=== PATIENT | male | born 1950 | race Caucasian/White ===

== ENCOUNTER 2016-05-30 13:45 | Emergency (ER) | payer MEDICARE, MEDICAID ==
[~2016-05-30] VITALS: Ht 160 cm; Wt 72.6 kg
[~2016-05-30 13:45] MED LIST: AMLO5TAB2 PO; AMMO385C5 TP; ASPI-482 PO; CLON0.1T PO; CLON0.2T PO; FLUO20DR OT; LEVO25TA4 PO; LISI-334 PO; METF500T4 PO
--- NOTE | 2016-05-30 15:16 | PHYS DOC ---
Past Medical History Past Medical History: Diabetes-Type I, Hypertension, Hypothyroid Past Surgical History: Other Additional Past Surgical Histo: 2 toes on L foot surgically amputated Alcohol Use: None Drug Use: None Adult General Chief Complaint Chief Complaint: MECHANICAL FALL HPI HPI Patient is a 65 year old male who presents with care provider for assessment of head injury and bloody nose. He was walking while carrying a chair and tripped. He fell hitting the front of his face on the ground. He had a bloody nose which is currently packed anteriorly with gauze and controlled. He has mild anterior face pain around areas of abrasion That is mild and constant. He denies headache, vision changes, neck pain, numbness, tingling, weakness, dyspnea, chest pain, abdominal pain, nausea or vomiting, dizziness. She is taking aspirin daily, without any other blood thinners. Review of Systems Review of Systems Constitutional: Denies fever or chills [] Eyes: Denies change in visual acuity, redness, or eye pain [] HENT: Denies nasal congestion or sore throat [] Respiratory: Denies cough or shortness of breath [] Cardiovascular: No additional information not addressed in HPI [] GI: Denies abdominal pain, nausea, vomiting, bloody stools or diarrhea [] : Denies dysuria or hematuria [] Musculoskeletal: Denies back pain or joint pain [] Integument: Denies rash [] Neurologic: Denies headache, focal weakness or sensory changes [] Endocrine: Denies polyuria or polydipsia [] Allergies Allergies Allergies Coded Allergies Type Severity Reaction Last Updated Verified No Known Drug Allergies 05/30/16 No Physical Exam Physical Exam Constitutional: Well developed, well nourished, no acute distress, non-toxic appearance. [] HENT: Normocephalic, bilateral TMs normal, oropharynx moist, no oral exudates, nose without bleeding. Nonbleeding abrasions to bridge of nose and left face with no underlying palpable bony abnormality. No watkins sign, hemotympanum, or raccoon eyes. [] Eyes: PERRLA, EOMI, conjunctiva normal, no discharge. [] Neck: Normal range of motion, no tenderness, supple. [] Cardiovascular:Heart rate regular rhythm [] Lungs & Thorax: Bilateral breath sounds clear to auscultation [] Abdomen: Bowel sounds normal, soft, no tenderness. [] Skin: Warm, dry, no erythema, no rash. [] Back: No tenderness, no CVA tenderness. [] Extremities: No tenderness, ROM intact, no edema. [] Neurologic: Alert and oriented X 3, normal motor function, normal sensory function, no focal deficits noted. [] Psychologic: Affect normal, judgement normal, mood normal. [] Current Patient Data Vital Signs Vital Signs Date Time Temp Pulse Resp B/P Pulse Ox O2 Delivery O2 Flow Rate FiO2 05/30/16 14:11 97.7 92 20 98 Room Air 97.7 Radiology/Procedures Radiology/Procedures CT head without contrast Impression: 1. No acute intracranial process detected. DICTATED and SIGNED BY: HARRISON SAMUEL MD DATE: 05/30/16 1523 Course & Med Decision Making Course & Med Decision Making Epistaxis was controlled prehospital. He has no change of symptoms and is ambulatory with steady gait. He would like to be discharged to follow-up with his primary care doctor. Return precautions given. He and outreach liaison understand and agree with plan. Dragon Disclaimer Dragon Disclaimer This electronic medical record was generated, in whole or in part, using a voice recognition dictation system. Departure Departure Impression: Primary Impression: Closed head injury Additional Impressions: Abrasion, face without infection Anterior epistaxis Disposition: HOME, SELF-CARE Condition: STABLE Referrals: SASKIA HERNANDEZ MD (PCP) Patient Instructions: Head Injury, Adult, [id number] Additional Instructions: Follow-up with your primary care doctor within one week. Return for any concerns. Problem Qualifiers Primary Impression: Closed head injury Encounter type: initial encounter Qualified Code: S09.90XA - Unspecified injury of head, initial encounter Dianne BERRIOS MD May 30, 2016 15:16
--- NOTE | 2016-05-30 15:27 | RAD ---
Exam performed: CT scan of the head without contrast. Date of Service: 05/30/16. Comparison: None available. Clinical History: Patient fell today, complaining of headache. Technique: Helical acquisitions are obtained from the foramen magnum to the vertex without intravenous administration of contrast. Findings: The ventricles are midline without evidence of dilatation. Normal srinivasan-white differentiation is maintained. There is no extra axial fluid collection, intraparenchymal hemorrhage or mass lesion. The visualized portions of the orbits, paranasal sinuses and the mastoid air cells appear clear. The calvarium is intact. Impression: 1. No acute intracranial process detected. PQRS Compliance Statement: One or more of the following individualized dose reduction techniques were utilized for this examination: 1. Automated exposure control 2. Adjustment of the mA and/or kV according to patient size 3. Use of iterative reconstruction technique
[2016-05-30 16:03] VITALS: BP 200/102
== END 2016-05-30 16:05 | disposition home or self-care (01) ==
LOC: ER 13:45
DX: S00.31XA Abrasion of nose, initial encounter (principal); S00.81XA Abrasion of other part of head, initial encounter; S09.90XA Unspecified injury of head, initial encounter; R04.0 Epistaxis; I10 Essential (primary) hypertension; E03.9 Hypothyroidism, unspecified; E10.9 Type 1 diabetes mellitus without complications; Z79.82 Long term (current) use of aspirin; Z89.422 Acquired absence of other left toe(s); W01.198A Fall on same level from slipping, tripping and stumbling with subsequent striking against other object, initial encounter; Y93.89 Activity, other specified; Y92.89 Other specified places as the place of occurrence of the external cause; Y99.8 Other external cause status
CPT/HCPCS: 70450; 99284-25

== ENCOUNTER 2017-11-15 10:56 | Inpatient (IN) | payer MEDICAID, MEDICARE ==
[~2017-11-15] VITALS: Ht 162.6 cm; Wt 76.9 kg
[~2017-11-15 10:56] MED LIST changes: -METF500T4 PO; +METF500T5 PO
[2017-11-15] MEDS ORDERED: IV NORMAL SALINE 500ML BAG 500 ML IV PRN (11:15)
[2017-11-15] MEDS ORDERED: IBUPROFEN 800 MG TABLET. PO ONE (11:30)
[2017-11-15] MEDS ORDERED: ACETAMINOPHEN 500 MG TABLET PO ONE (11:45)
[2017-11-15] MEDS: IV NORMAL SALINE 1000ML BAG 1,000 ML IV SCH ×2 (11:46→11:49)
[2017-11-15 11:48] LABS: BASO # 0.1 x10^3/uL (0.0-0.2); BASO % 0 % (0-3); EOS # 0.1 x10^3/uL (0.0-0.7); EOS % 0 % (0-3); HEMOGLOBIN 11.6 g/dL (13.0-17.5); LYMPH # 2.9 x10^3/uL (1.0-4.8); LYMPH % 15 % (24-48); MEAN CORPUSCULAR HEMOGLOBIN 32 pg (25-35); MEAN CORPUSCULAR HGB CONC 35 g/dL (31-37); MEAN CORPUSCULAR VOLUME 92 fL (79-100); MONO # 2.2 x10^3/uL (0.0-1.1); MONO % 12 % (0-9); NEUT # 13.8 x10^3uL (1.8-7.7); NEUT % 73 % (31-73); PLATELET COUNT 193 x10^3/uL (140-400); RED BLOOD COUNT 3.58 x10^6/uL (4.30-5.70)
[2017-11-15] MEDS: PIPERACILLIN/TAZOBACTAM 4.5 GM in IV NORMAL SALINE 100ML 100 ML IV SCH ×3 (11:49→23:32)
--- NOTE | 2017-11-15 11:55 | RAD ---
FOOT LEFT 3V History: DIABETIC WOUND ON LEFT FOOT X 2 WEEKS
SWELLING AND REDNESS OF LEFT FOOT. Comparison: None are available There has been amputation at the base of the first metatarsal with well-defined margins. There has been apparent dilatation at the base of the proximal third and fourth phalanges with well-defined margins. Chronic appearing ununited fracture at the distal second metatarsal. Mild degenerative changes along this pseudarthrosis. There is irregularity of the small second metatarsal head remnant and MTP joint. No evidence of an acute fracture. No overtly aggressive bone destruction is identified. Calcaneal enthesophytes are noted. IMPRESSION: 1. Multiple amputations. 2. Chronic appearing fracture with pseudarthrosis at the distal second metatarsal. Electronically signed by: Rommel Gaspar MD (11/15/2017 11:51 AM) [facility]
[2017-11-15 11:59] LABS: CALCIUM 7.6 mg/dL (8.5-10.1); CREATININE 1.2 mg/dL (0.7-1.3); GFR 60.6; POTASSIUM 3.6 mmol/L (3.5-5.1)
[2017-11-15] MEDS ORDERED: VANCOMYCIN 1.75 GM in IV NORMAL SALINE 500ML BAG 500 ML IV ONE (12:00)
[2017-11-15 12:06] LABS: ALBUMIN/GLOBULIN RATIO 0.9 (1.0-1.7); C-REACTIVE PROTEIN 236.4 mg/L (0-3.3); TOTAL BILIRUBIN 2.4 mg/dL (0.2-1.0); TOTAL PROTEIN 6.4 g/dL (6.4-8.2)
--- NOTE | 2017-11-15 12:18 | RAD ---
Examination: Left Lower Extremity Venous Doppler Ultrasound History: Left leg swelling Comparison: None Procedure: Gomez scale, color flow 2D and spectal waveform analysis images are obtained with and without compression in the area of the common femoral vein, superficial femoral vein - femoral vein junction, main femoral vein (superficial femoral vein) and popliteal vein. Veins of the proximal calf are also imaged. Findings: There is normal duplex flow, color flow and compressibility of all visualized vein segments. No evidence of deep venous thrombus is present. Enlarged left inguinal lymph node measuring 3.7 cm. Impression: No evidence of DVT in the visualized left lower extremity venous system. Electronically signed by: Jose Antonio Mcadams MD (11/15/2017 12:14 PM) [id number]
--- NOTE | 2017-11-15 12:58 | PHYS DOC ---
Past Medical History Past Medical History: Diabetes-Type I, Hypertension, Hypothyroid Past Surgical History: Other Additional Past Surgical Histo: 2 toes on L foot surgically amputated Alcohol Use: None Drug Use: None Adult General Chief Complaint Chief Complaint: LOWER EXTREMITY SWELLING HPI HPI Patient is a 67 year old male with history of diabetes, hypertension, hypothyroidism, who presents today with with an infected diabetic foot ulcer. Patient states 3 weeks ago he had callosus removed from his left foot, he states he followed up with the [facility] wound clinic 2 weeks ago. He states the area was healing well. He states for the last couple days he' s noted redness on the foot as well as streaks of redness to the the leg. Patient is in the ED with a caregiver who stated patient had subjective fevers today. Patient denies any nausea vomiting. PCP Dr. Wells Review of Systems Review of Systems Constitutional: Reports fever Eyes: Denies change in visual acuity, redness, or eye pain [] HENT: Denies nasal congestion or sore throat [] Respiratory: Denies cough or shortness of breath [] Cardiovascular: No additional information not addressed in HPI [] GI: Denies abdominal pain, nausea, vomiting, bloody stools or diarrhea [] : Denies dysuria or hematuria [] Musculoskeletal: Denies back pain or joint pain [] Integument: Reports infection to the left foot Neurologic: Denies headache, focal weakness or sensory changes [] All other systems were reviewed and found to be within normal limits, except as documented in this note. Current Medications Current Medications Current Medications Medications (Trade) Dose Ordered Sig/Susan Start Time Stop Time Status Last Admin Dose Admin Acetaminophen (Tylenol) 1,000 mg 1X ONCE 11/15/17 11:45 11/15/17 11:46 DC 11/15/17 11:45 1,000 MG Ibuprofen (Motrin) 800 mg 1X ONCE 11/15/17 11:30 11/15/17 11:31 DC 11/15/17 11:45 800 MG Piperacillin Sod/ Tazobactam Sod 4.5 gm/Sodium Chloride 100 ml @ 200 mls/hr Q6HRS 11/15/17 12:00 11/15/17 11:49 200 MLS/HR Sodium Chloride 500 ml @ 1,000 mls/hr PRN Q30MIN PRN 11/15/17 11:15 Vancomycin HCl (Vanco Per Pharmacy) 1 each PRN DAILY PRN 11/15/17 11:15 UNV Vancomycin HCl 1.75 gm/Sodium Chloride 500 ml @ 250 mls/hr 1X ONCE 11/15/17 12:00 11/15/17 13:59 11/15/17 12:08 250 MLS/HR Allergies Allergies Allergies Coded Allergies Type Severity Reaction Last Updated Verified No Known Drug Allergies 11/15/17 No Physical Exam Physical Exam Constitutional: Well developed, well nourished, no acute distress, non-toxic appearance. [] HENT: Normocephalic, atraumatic, bilateral external ears normal, oropharynx moist, no oral exudates, nose normal. [] Eyes: PERRLA, EOMI, conjunctiva normal, no discharge. [] Neck: Normal range of motion, no tenderness, supple, no stridor. [] Cardiovascular:Heart rate regular rhythm, no murmur [] Lungs & Thorax: Bilateral breath sounds clear to auscultation [] Abdomen: Bowel sounds normal, soft, no tenderness, no masses, no pulsatile masses. [] Skin: Warm, dry, no erythema, no rash. [] Back: No tenderness, no CVA tenderness. [] Extremities: Old amputation of the left great toe, left third toe is amputated, this redness over the amputation site is a 1 x 1 cm erythema on the distal 2nd metatarsal, there is redness/erythema over the foot area this streaking from the foot to the mid wagonre. There is warmth over the foot and wagoner. +1 left pedal pulse. Cap refill less than 2 seconds the left toes. No drainage over the foot. Patient has sensation to the foot. Neurologic: Alert and oriented X 3, normal motor function, normal sensory function, no focal deficits noted. [] Psychologic: Affect normal, judgement normal, mood normal. [] Current Patient Data Vital Signs Vital Signs Date Time Temp Pulse Resp B/P (MAP) Pulse Ox O2 Delivery O2 Flow Rate FiO2 11/15/17 10:57 101.3 106 20 146/67 (93) 95 Room Air 101.3 Lab Values Laboratory Tests Test 11/15/17 11:25 White Blood Count 19.0 x10^3/uL (4.0-11.0) H Red Blood Count 3.58 x10^6/uL (4.30-5.70) L Hemoglobin 11.6 g/dL (13.0-17.5) L Hematocrit 33.0 % (39.0-53.0) L Mean Corpuscular Volume 92 fL (79-100) Mean Corpuscular Hemoglobin 32 pg (25-35) Mean Corpuscular Hemoglobin Concent 35 g/dL (31-37) Red Cell Distribution Width 13.0 % (11.5-14.5) Platelet Count 193 x10^3/uL (140-400) Neutrophils (%) (Auto) 73 % (31-73) Lymphocytes (%) (Auto) 15 % (24-48) L Monocytes (%) (Auto) 12 % (0-9) H Eosinophils (%) (Auto) 0 % (0-3) Basophils (%) (Auto) 0 % (0-3) Neutrophils # (Auto) 13.8 x10^3uL (1.8-7.7) H Lymphocytes # (Auto) 2.9 x10^3/uL (1.0-4.8) Monocytes # (Auto) 2.2 x10^3/uL (0.0-1.1) H Eosinophils # (Auto) 0.1 x10^3/uL (0.0-0.7) Basophils # (Auto) 0.1 x10^3/uL (0.0-0.2) Platelet Estimate Pending Sodium Level 138 mmol/L (136-145) Potassium Level 3.6 mmol/L (3.5-5.1) Chloride Level 104 mmol/L (98-107) Carbon Dioxide Level 26 mmol/L (21-32) Anion Gap 8 (6-14) Blood Urea Nitrogen 26 mg/dL (8-26) Creatinine 1.2 mg/dL (0.7-1.3) Estimated GFR (Cockcroft-Gault) 60.6 BUN/Creatinine Ratio 22 (6-20) H Glucose Level 164 mg/dL (70-99) H Lactic Acid Level 2.5 mmol/L (0.4-2.0) H Calcium Level 7.6 mg/dL (8.5-10.1) L Total Bilirubin 2.4 mg/dL (0.2-1.0) H Aspartate Amino Transferase (AST) 18 U/L (15-37) Alanine Aminotransferase (ALT) 18 U/L (16-63) Alkaline Phosphatase 125 U/L (46-116) H C-Reactive Protein, Quantitative 236.4 mg/L (0-3.3) H Total Protein 6.4 g/dL (6.4-8.2) Albumin 3.0 g/dL (3.4-5.0) L Albumin/Globulin Ratio 0.9 (1.0-1.7) L Laboratory Tests 11/15/17 11:25 Laboratory Tests 11/15/17 11:25 EKG EKG [] Radiology/Procedures Radiology/Procedures []PROCEDURE: FOOT LEFT 3V FOOT LEFT 3V History: DIABETIC WOUND ON LEFT FOOT X 2 WEEKS
SWELLING AND REDNESS OF LEFT FOOT. Comparison: None are available There has been amputation at the base of the first metatarsal with well-defined margins. There has been apparent dilatation at the base of the proximal third and fourth phalanges with well-defined margins. Chronic appearing ununited fracture at the distal second metatarsal. Mild degenerative changes along this pseudarthrosis. There is irregularity of the small second metatarsal head remnant and MTP joint. No evidence of an acute fracture. No overtly aggressive bone destruction is identified. Calcaneal enthesophytes are noted. IMPRESSION: 1. Multiple amputations. 2. Chronic appearing fracture with pseudarthrosis at the distal second metatarsal. Electronically signed by: Rommel Gaspar MD (11/15/2017 11:51 AM) [facility] DICTATED and SIGNED BY: ROMMEL GASPAR MD DATE: 11/15/17 1148 PROCEDURE: VENOUS LOWER EXTREMITY LEFT Examination: Left Lower Extremity Venous Doppler Ultrasound History: Left leg swelling Comparison: None Procedure: Gomez scale, color flow 2D and spectal waveform analysis images are obtained with and without compression in the area of the common femoral vein, superficial femoral vein - femoral vein junction, main femoral vein (superficial femoral vein) and popliteal vein. Veins of the proximal calf are also imaged. Findings: There is normal duplex flow, color flow and compressibility of all visualized vein segments. No evidence of deep venous thrombus is present. Enlarged left inguinal lymph node measuring 3.7 cm. Impression: No evidence of DVT in the visualized left lower extremity venous system. Electronically signed by: Jose Antonio Jiménez MD (11/15/2017 12:14 PM) [id number] DICTATED and SIGNED BY: JOSE ANTONIO JIMÉNEZ MD DATE: 11/15/17 1214 Course & Med Decision Making Course & Med Decision Making Pertinent Labs and Imaging studies reviewed. (See chart for details) This is a 67-year-old male patient presenting to the ED today with an infected diabetic foot ulcer, on arrival to the ED patient was febrile with a temperature of 101.3, heart rate 106 blood pressure 146/67 O2 sats 95% on room air respiration 20 room air, sepsis workup was initiated. Left foot x-rays interpreted by radiologist were negative for any acute findings. Venous Doppler of the left lower extremity is negative. Tetanus is up to date. CBC with a WBC of 19.0 and left shift, CMP would not acute findings, C-reactive 236, lactic 2.5. Repeat lactic will be obtained. 12:[address] Abernathy who accepted patient for admission, routine consult placed for orthopedic doctor, infectious disease, and wound clinic, [place] Disclaimer Dragon Disclaimer This electronic medical record was generated, in whole or in part, using a voice recognition dictation system. Departure Departure Impression: Primary Impression: Diabetic foot ulcer Additional Impressions: Septic shock Fever Tachycardia Disposition: 09 ADMITTED INPATIENT Condition: STABLE Referrals: SASKIA HERNANDEZ MD (PCP) Problem Qualifiers Primary Impression: Diabetic foot ulcer Diabetic foot ulcer location: unspecified part of foot Diabetes mellitus type : type 1 Laterality: left Non-pressure ulcer stage: with other severity Qualified Codes: E10.621 - Type 1 diabetes mellitus with foot ulcer; L97.528 - Non-pressure chronic ulcer of other part of left foot with other specified severity Additional Impressions: Fever Fever type: unspecified Qualified Codes: R50.9 - Fever, unspecified MUTUNGA,[employer]ST[employer] D[employer] CALLER Nov 15, 2017 12:58
[2017-11-15] MEDS ORDERED: MORPHINE SULFATE 4 MG/ML VIAL. IV PRN (13:00)
[2017-11-15] MEDS ORDERED: ONDANSETRON PF 4 MG/2 ML VIAL. IV PRN (13:00)
[2017-11-15] MEDS ORDERED: IV NORMAL SALINE 1000ML BAG 1,000 ML IV ONE (13:00)
[2017-11-15 13:22] LABS: % BANDS 4 % (0-9); % LYMPHS 6 % (24-48); % MONOS 11 % (0-10); % SEGS 79 % (35-66)
[2017-11-15 13:23] LABS: PLT ESTIMATE ADEQUATE (ADEQUATE)
[2017-11-15 13:40] VITALS: BP 128/60
[2017-11-15] MEDS: VANCOMYCIN PER PHARMACY MC PRN (15:02)
[2017-11-15] MEDS ORDERED: DEXTROSE 50% 25 GM / 50ML DISP.SYRIN. IV PRN (17:45)
[2017-11-15] MEDS: INSULIN LISPRO 300 UNITS/3 ML INSULN.PEN. SQ SCH (18:00)
--- NOTE | 2017-11-15 18:32 | HP ---
ADMIT DATE: 11/15/2017 CHIEF COMPLAINT: Left foot swelling. HISTORY OF PRESENT ILLNESS: The patient is a pleasant 67-year-old cognitively challenged male who lives in a [facility]. He presents with left foot swelling. He is diabetic. It appears he has a diabetic foot lesion on the plantar surface of his foot near the ball of the first toe. I have discussed the case with ER physician. We are going to admit the patient and consult Orthopedics to consider incision and drainage. We are going to be treating him with IV antibiotics. PAST MEDICAL HISTORY: Cognitively challenged, hypertension, hypothyroidism, diabetes, 2 toes amputated on the left. ALLERGIES: None. FAMILY HISTORY: Diabetes. SOCIAL HISTORY: He lives in a [facility]. He does not drink, smoke or take drugs. MEDICATIONS: Reviewed, please refer to the MRAD. REVIEW OF SYSTEMS: Unable to obtain. The patient is too cognitively challenged, but he is stable. PHYSICAL EXAMINATION: VITAL SIGNS: Temperature afebrile, pulse 90, respirations 18, blood pressure 120/60. GENERAL: He is alert, very pleasant, cooperative. HEART: Normal S1, S2. LUNGS: Clear. ABDOMEN: Soft. EXTREMITIES: The left foot has swelling and erythema and a lesion on the plantar surface near the ball of the foot, suspect he has an abscess there. ENDOCRINE: No thyromegaly. LYMPHATICS: No cervical nodes. HEMATOPOIETIC: No bruising. LABORATORY DATA: White count 19, hemoglobin 12, platelets 193. Electrolytes are pending. Lactic acid is high at 2.5. C-reactive protein is high at 236. Foot x-ray, a chronic appearing fracture with pseudoarthrosis at the distal second metatarsal, multiple toe amputations. Lower extremity ultrasound is negative for DVT. ASSESSMENT AND PLAN: Diabetic foot lesion. The patient is being admitted. We will consult Orthopedics to consider incision and drainage. IV antibiotics, frequent labs, IV hydration, continue home medicines. Wound care. ERIKA REEVES DO DR: TOÑA/marcos JOB#: [id number] / [id number]
[2017-11-15 19:00] VITALS: BP 156/71
[2017-11-15] MEDS: LACTOBACILLUS RHAMNOSUS GG 1 CAPSULE. PO SCH (20:53)
[2017-11-15 23:00] VITALS: BP 164/82
[2017-11-15] MEDS: ACETAMINOPHEN 325 MG TABLET. PO PRN (23:32)
[2017-11-16 03:00] VITALS: BP 156/68
[2017-11-16 04:50] LABS: BASO % 0 % (0-3); EOS # 0.1 x10^3/uL (0.0-0.7); EOS % 0 % (0-3); HEMATOCRIT 34.9 % (39.0-53.0); HEMOGLOBIN 12.2 g/dL (13.0-17.5); LYMPH # 1.8 x10^3/uL (1.0-4.8); LYMPH % 11 % (24-48); MEAN CORPUSCULAR HEMOGLOBIN 33 pg (25-35); MEAN CORPUSCULAR HGB CONC 35 g/dL (31-37); MEAN CORPUSCULAR VOLUME 93 fL (79-100); MONO # 2.1 x10^3/uL (0.0-1.1); MONO % 13 % (0-9); NEUT % 76 % (31-73); PLATELET COUNT 211 x10^3/uL (140-400); RED BLOOD COUNT 3.75 x10^6/uL (4.30-5.70); RED CELL DISTRIBUTION WIDTH 13.3 % (11.5-14.5); WHITE BLOOD COUNT 17.1 x10^3/uL (4.0-11.0)
[2017-11-16 05:05] LABS: CALCIUM 7.7 mg/dL (8.5-10.1); CREATININE 1.1 mg/dL (0.7-1.3); POTASSIUM 3.6 mmol/L (3.5-5.1)
[2017-11-16] MEDS: PIPERACILLIN/TAZOBACTAM 4.5 GM in IV NORMAL SALINE 100ML 100 ML IV SCH ×3 (06:13→18:00)
[2017-11-16 07:00] VITALS: BP 130/56
[2017-11-16] MEDS: INSULIN LISPRO 300 UNITS/3 ML INSULN.PEN. SQ SCH ×3 (08:00→17:58)
--- NOTE | 2017-11-16 08:58 | PDOC ---
Infectious Disease Note Vital Sign Vital Signs Vital Signs Date Time Temp Pulse Resp B/P (MAP) Pulse Ox O2 Delivery O2 Flow Rate FiO2 11/16/17 07:00 100.7 104 16 130/56 (80) 93 Room Air 100.7 Labs Lab Laboratory Tests Test 11/15/17 11:25 11/15/17 14:13 11/15/17 15:15 11/15/17 17:12 White Blood Count 19.0 x10^3/uL (4.0-11.0) Red Blood Count 3.58 x10^6/uL (4.30-5.70) Hemoglobin 11.6 g/dL (13.0-17.5) Hematocrit 33.0 % (39.0-53.0) Mean Corpuscular Volume 92 fL (79-100) Mean Corpuscular Hemoglobin 32 pg (25-35) Mean Corpuscular Hemoglobin Concent 35 g/dL (31-37) Red Cell Distribution Width 13.0 % (11.5-14.5) Platelet Count 193 x10^3/uL (140-400) Neutrophils (%) (Auto) 73 % (31-73) Lymphocytes (%) (Auto) 15 % (24-48) Monocytes (%) (Auto) 12 % (0-9) Eosinophils (%) (Auto) 0 % (0-3) Basophils (%) (Auto) 0 % (0-3) Neutrophils # (Auto) 13.8 x10^3uL (1.8-7.7) Lymphocytes # (Auto) 2.9 x10^3/uL (1.0-4.8) Monocytes # (Auto) 2.2 x10^3/uL (0.0-1.1) Eosinophils # (Auto) 0.1 x10^3/uL (0.0-0.7) Basophils # (Auto) 0.1 x10^3/uL (0.0-0.2) Segmented Neutrophils % 79 % (35-66) Band Neutrophils % 4 % (0-9) Lymphocytes % 6 % (24-48) Monocytes % 11 % (0-10) Platelet Estimate Adequate (ADEQUATE) Erythrocyte Sedimentation Rate 63 (0-15) Sodium Level 138 mmol/L (136-145) Potassium Level 3.6 mmol/L (3.5-5.1) Chloride Level 104 mmol/L (98-107) Carbon Dioxide Level 26 mmol/L (21-32) Anion Gap 8 (6-14) Blood Urea Nitrogen 26 mg/dL (8-26) Creatinine 1.2 mg/dL (0.7-1.3) Estimated GFR (Cockcroft-Gault) 60.6 BUN/Creatinine Ratio 22 (6-20) Glucose Level 164 mg/dL (70-99) Lactic Acid Level 2.5 mmol/L (0.4-2.0) 1.7 mmol/L (0.4-2.0) Calcium Level 7.6 mg/dL (8.5-10.1) Total Bilirubin 2.4 mg/dL (0.2-1.0) Aspartate Amino Transf (AST/SGOT) 18 U/L (15-37) Alanine Aminotransferase (ALT/SGPT) 18 U/L (16-63) Alkaline Phosphatase 125 U/L (46-116) C-Reactive Protein, Quantitative 236.4 mg/L (0-3.3) Total Protein 6.4 g/dL (6.4-8.2) Albumin 3.0 g/dL (3.4-5.0) Albumin/Globulin Ratio 0.9 (1.0-1.7) Procalcitonin 0.13 ng/mL (0.00-0.10) Glucose (Fingerstick) 128 mg/dL (70-99) 169 mg/dL (70-99) Test 11/15/17 19:25 11/15/17 20:13 11/16/17 04:15 11/16/17 07:54 Lactic Acid Level 1.6 mmol/L (0.4-2.0) Glucose (Fingerstick) 161 mg/dL (70-99) 155 mg/dL (70-99) White Blood Count 17.1 x10^3/uL (4.0-11.0) Red Blood Count 3.75 x10^6/uL (4.30-5.70) Hemoglobin 12.2 g/dL (13.0-17.5) Hematocrit 34.9 % (39.0-53.0) Mean Corpuscular Volume 93 fL (79-100) Mean Corpuscular Hemoglobin 33 pg (25-35) Mean Corpuscular Hemoglobin Concent 35 g/dL (31-37) Red Cell Distribution Width 13.3 % (11.5-14.5) Platelet Count 211 x10^3/uL (140-400) Neutrophils (%) (Auto) 76 % (31-73) Lymphocytes (%) (Auto) 11 % (24-48) Monocytes (%) (Auto) 13 % (0-9) Eosinophils (%) (Auto) 0 % (0-3) Basophils (%) (Auto) 0 % (0-3) Neutrophils # (Auto) 13.0 x10^3uL (1.8-7.7) Lymphocytes # (Auto) 1.8 x10^3/uL (1.0-4.8) Monocytes # (Auto) 2.1 x10^3/uL (0.0-1.1) Eosinophils # (Auto) 0.1 x10^3/uL (0.0-0.7) Basophils # (Auto) 0.0 x10^3/uL (0.0-0.2) Sodium Level 141 mmol/L (136-145) Potassium Level 3.6 mmol/L (3.5-5.1) Chloride Level 106 mmol/L (98-107) Carbon Dioxide Level 27 mmol/L (21-32) Anion Gap 8 (6-14) Blood Urea Nitrogen 17 mg/dL (8-26) Creatinine 1.1 mg/dL (0.7-1.3) Estimated GFR (Cockcroft-Gault) 67.0 Glucose Level 180 mg/dL (70-99) Calcium Level 7.7 mg/dL (8.5-10.1) Micro Microbiology 11/15/17 Blood Culture - Final, Complete Objective Assessment Extensive diabetic foot infection , left with abscess and possible osteomyelitis Fever Leukocytosis DM HTN BC + g + cocci Plan Plan of Care vanc and zosyn repeat supportive care surgery, d/w Dr Mcnair check cultures JUSTINA ROSSI MD Nov 16, 2017 08:58
[2017-11-16] MEDS: LACTOBACILLUS RHAMNOSUS GG 1 CAPSULE. PO SCH ×2 (09:00→20:45)
[2017-11-16] MEDS ORDERED: ONDANSETRON PF 4 MG/2 ML VIAL. IV PRN (09:00)
[2017-11-16] MEDS ORDERED: LISINOPRIL 20 MG TABLET PO SCH (09:00)
[2017-11-16] MEDS ORDERED: amLODIPine BESYLATE 5 MG TABLET PO SCH (09:00)
[2017-11-16] MEDS ORDERED: LABETALOL 20 MG/4 ML DISP.SYRIN. IVP PRN (09:00)
[2017-11-16] MEDS ORDERED: DEXTROSE 50% 25 GM / 50ML DISP.SYRIN. IV PRN (09:00)
[2017-11-16] MEDS ORDERED: cloNIDine HCL 0.2 MG TABLET PO SCH (09:00)
[2017-11-16] MEDS ORDERED: BUPIVACAINE MPF 0.25% 30 ML VIAL. ONE (09:18)
[2017-11-16] MEDS ORDERED: LIDOCAINE 1% PF 30 ML VIAL. ONE (09:18)
[2017-11-16] MEDS: ACETAMINOPHEN 325 MG TABLET. PO PRN (09:20)
--- NOTE | 2017-11-16 09:53 | PDOC2 ---
CONSULT Date of Consult Date of Consult DATE: 11/16/17 TIME: 09:48 Reason for Consult Reason for Consult: Foot abscess Referring Physician Referring Physician: Michela Identification/Chief Complaint Chief Complaint Left foot pain Source Source: Chart review, Patient History of Present Illness Reason for Visit: Patient is a very pleasant 67 [address] laterally. Gentleman who has been managed by podiatry for his foot wounds thus far. He is not able to offer much in terms of the timeframe but it can tell me that in the past several days it has been more painful red and swollen. He was admitted for treatment of this problem. His foot is worse anytime he tries to put weight on it. It is a little bit better up and at rest. He has not been feeling better yet since being on the antibiotics. Past Medical History Cardiovascular: HTN Endocrine: No pertinent hx, Diabetes, Hypothyroidism Past Surgical History Past Surgical History: Other (he has had multiple prior amputations of his lower extremities for wounds) Social History No ALCOHOL: none Lives: Care Home Current Problem List Problem List Problems Medical Problems: (1) Fever Status: Acute (2) Tachycardia Status: Acute Current Medications Current Medications Current Medications Sodium Chloride 1,000 ml @ 1,770 mls/hr Q34M IV Last administered on at 11:49; Start 11/15/17 at 11:15; Stop 11/15/17 at 12:15; Status DC Sodium Chloride 500 ml @ 1,000 mls/hr PRN Q30MIN PRN IV SEE COMMENTS Last administered on 11/15/17at 13:20; Start 11/15/17 at 11:15 Vancomycin HCl (Vanco Per Pharmacy) 1 each PRN DAILY PRN MC SEE COMMENTS Last administered on 11/15/17at 15:02; Start 11/15/17 at 11:15 Piperacillin Sod/ Tazobactam Sod 4.5 gm/Sodium Chloride 100 ml @ 200 mls/hr Q6HRS IV Last administered on 11/16/17at 06:13; Start 11/15/17 at 12:00 Acetaminophen (Tylenol) 1,000 mg 1X ONCE PO Last administered on 11/15/17at 11: 45; Start 11/15/17 at 11:45; Stop 11/15/17 at 11:46; Status DC Ibuprofen (Motrin) 800 mg 1X ONCE PO Last administered on 11/15/17at 11:45; Start 11/15/17 at 11:30; Stop 11/15/17 at 11:31; Status DC Vancomycin HCl 1.75 gm/Sodium Chloride 500 ml @ 250 mls/hr 1X ONCE IV Last administered on 11/15/17at 12:08; Start 11/15/17 at 12:00; Stop 11/15/17 at 13:59 ; Status DC Ondansetron HCl (Zofran) 4 mg PRN Q8HRS PRN IV NAUSEA/VOMITING; Start 11/15/17 at 13:00; Stop 11/16/17 at 08:53; Status DC Morphine Sulfate (Morphine Sulfate) 4 mg PRN Q2HR PRN IV PAIN; Start 11/15/17 at 13:00; Stop 11/16/17 at 12:59 Acetaminophen (Tylenol) 650 mg PRN Q4HRS PRN PO FEVER Last administered on 11/16at 09:20; Start 11/15/17 at 13:00; Stop 11/16/17 at 12:59 Sodium Chloride 1,000 ml @ 125 mls/hr 1X ONCE IV Last administered on at 13:00; Start 11/15/17 at 13:00; Stop 11/15/17 at 20:59; Status DC Vancomycin HCl 1.25 gm/Sodium Chloride 250 ml @ 167 mls/hr Q24H IV ; Start at 12:00 Vancomycin HCl (Vancomycin Trough Level) 1 each 1X ONCE MC ; Start 11/17/17 at 11:30; Stop 11/17/17 at 11:31 Lactobacillus Rhamnosus (Culturelle) 1 cap BID PO Last administered on at 20:53; Start 11/15/17 at 21:00 Insulin Human Lispro (HumaLOG) 0-7 UNITS TIDWMEALS SQ ; Start 11/15/17 at 18:00 ; Stop 11/16/17 at 08:53; Status DC Dextrose (Dextrose 50%-Water Syringe) 12.5 gm PRN Q15MIN PRN IV SEE COMMENTS; Start 11/15/17 at 17:45; Stop 11/16/17 at 09:35; Status DC Ondansetron HCl (Zofran) 4 mg PRN Q6HRS PRN IV NAUSEA/VOMITING; Start 11/16/17 at 09:00 Insulin Human Lispro (HumaLOG) 0-9 UNITS TIDWMEALS SQ ; Start 11/16/17 at 12:00 Dextrose (Dextrose 50%-Water Syringe) 12.5 gm PRN Q15MIN PRN IV SEE COMMENTS; Start 11/16/17 at 09:00 Amlodipine Besylate (Norvasc) 5 mg BID PO ; Start 11/16/17 at 09:00 Clonidine HCl (Catapres) 0.1 mg QHS PO ; Start 11/16/17 at 21:00 Clonidine HCl (Catapres) 0.2 mg DAILY PO ; Start 11/16/17 at 09:00 Lisinopril (Prinivil) 20 mg BID PO ; Start 11/16/17 at 09:00 Lactic Acid (Lac-Hydrin) 1 frances BID TP ; Start 11/16/17 at 10:00 Non-Formulary Medication (Fluocinolone Acetonide Oil ) 20 ml 3X/WEEK OT ; Start 11/17/17 at 09:00; Status UNV Levothyroxine Sodium (Synthroid) 25 mcg DAILY07 PO ; Start 11/16/17 at 10:30 Metformin HCl (Glucophage) 500 mg BIDWMEALS PO ; Start 11/16/17 at 10:00 Labetalol HCl (Normodyne Iv Push) 10 mg PRN Q2HR PRN IVP HYPERTENSION, SEE COMMENTS; Start 11/16/17 at 09:00 Active Scripts Active Reported Fluocinolone Acetonide Oil 20 Ml Drops 20 Ml OT 3X/WEEK Ammonium Lactate 385 Gm Cream..g. 385 Gm TP BID Metformin Hcl 500 Mg Tablet 1 Tab PO BID Lisinopril 20 Mg Tablet 1 Tab PO BID Levothyroxine Sodium 25 Mcg Tablet 1 Tab PO DAILY Clonidine Hcl 0.2 Mg Tablet 0.2 Mg PO DAILY Clonidine Hcl 0.1 Mg Tablet 1 Tab PO QHS Aspir 81 (Aspirin) 81 Mg Tablet.dr 1 Tab PO DAILY Amlodipine Besylate 5 Mg Tablet 5 Mg PO BID Allergies Allergies: Coded Allergies: No Known Drug Allergies (Unverified , 11/15/17) ROS General: No: Chills, Night Sweats, Fatigue, Malaise, Appetite, Other PSYCHOLOGICAL ROS: No: Anxiety, Behavioral Disorder, Concentration difficultie , Decreased libido, Depression, Disorientation, Hallucinations, Hostility, Irritablity, Memory difficulties, Mood Swings, Obsessive thoughts, Physical abuse, Sexual abuse, Sleep disturbances, Suicidal ideation, Other Eyes: No Blurry vision, No Decreased vision, No Double vision, No Dry eyes, No Excessive tearing, No Eye Pain, No Itchy Eyes, No Loss of vision, No Photophobia , No Scotomata, No Uses contacts, No Uses glasses, No Other HEENT: No: Heacaches, Visual Changes, Hearing change, Nasal congestion, Nasal discharge, Oral lesions, Sinus pain, Sore Throat, Epistaxis, Sneezing, Snoring, Tinnitus, Vertigo, Vocal changes, Other ALLERGY AND IMMUNOLOGY: No: Hives, Insect Bite Sensitivity, Itchy/Watery Eyes, Nasal Congestion, Post Nasal Drip, Seasonal Allergies, Other Hematological and Lymphatic: No: Bleeding Problems, Blood Clots, Blood Transfusions, Brusing, Night Sweats, Pallor, Swollen Lymph Nodes, Other ENDOCRINE: No: Breast Changes, Galactorrhea, Hair Pattern Changes, Hot Flashes , Malaise/lethargy, Mood Swings, Palpitations, Polydipsia/polyuria, Skin Changes , Temperature Intolerance, Unexpected Weight Changes, Other Respiratory: No: Cough, Hemoptysis, Orthopnea, Pleuritic Pain, Shortness of breath, SOB with excertion, Sputum Changes, Stridor, Tachypnea, Wheezing, Other Cardiovascular: No Chest Pain, No Palpitations, No Orthopnea, No Paroxysmal Noc. Dyspnea, No Edema, No Lt Headedness, No Other Gastrointestinal: No Nausea, No Vomiting, No Abdominal Pain, No Diarrhea, No Constipation, No Melena, No Hematochezia, No Other Musculoskeletal: Yes Joint Swelling Neurological: No Behavorial Changes, No Bowel/Bladder ControlChng, No Confusion , No Dizziness, No Gait Disturbance, No Headaches, No Impaired Coord/balance, No Memory Loss, No Numbness/Tingling, No Seizures, No Speech Problems, No Tremors, No Visual Changes, No Weakness, No Other Skin: Yes Skin Lesion Changes Physical Exam General: Alert, No acute distress HEENT: Atraumatic, EOMI Lungs: Other (respirations are unlabored with symmetric chest rise) Heart: Other (dorsalis pedis week at left foot) Abdomen: Normal bowel sounds, No tenderness Extremities: No clubbing, No cyanosis Neuro: Normal speech, Strength at 5/5 X4 ext, Sensation intact Psych/Mental Status: Mental status NL, Mood NL, Other (he is slow to respond but does follow simple commands) MUSCULOSKELETAL: Other (examination of his left foot reveals multiple prior toe amputations. He has about a 1 cm diameter wound over the plantar second metatarsal head with foul-smelling purulent drainage. There is a fullness and fluctuance around this area as well.) Vitals VITALS Vital Signs Date Time Temp Pulse Resp B/P (MAP) Pulse Ox O2 Delivery O2 Flow Rate FiO2 11/16/17 07:00 100.7 104 16 130/56 (80) 93 Room Air 100.7 Labs Labs Laboratory Tests Test 11/15/17 11:25 11/15/17 14:13 11/15/17 15:15 11/15/17 17:12 White Blood Count 19.0 x10^3/uL (4.0-11.0) Red Blood Count 3.58 x10^6/uL (4.30-5.70) Hemoglobin 11.6 g/dL (13.0-17.5) Hematocrit 33.0 % (39.0-53.0) Mean Corpuscular Volume 92 fL (79-100) Mean Corpuscular Hemoglobin 32 pg (25-35) Mean Corpuscular Hemoglobin Concent 35 g/dL (31-37) Red Cell Distribution Width 13.0 % (11.5-14.5) Platelet Count 193 x10^3/uL (140-400) Neutrophils (%) (Auto) 73 % (31-73) Lymphocytes (%) (Auto) 15 % (24-48) Monocytes (%) (Auto) 12 % (0-9) Eosinophils (%) (Auto) 0 % (0-3) Basophils (%) (Auto) 0 % (0-3) Neutrophils # (Auto) 13.8 x10^3uL (1.8-7.7) Lymphocytes # (Auto) 2.9 x10^3/uL (1.0-4.8) Monocytes # (Auto) 2.2 x10^3/uL (0.0-1.1) Eosinophils # (Auto) 0.1 x10^3/uL (0.0-0.7) Basophils # (Auto) 0.1 x10^3/uL (0.0-0.2) Segmented Neutrophils % 79 % (35-66) Band Neutrophils % 4 % (0-9) Lymphocytes % 6 % (24-48) Monocytes % 11 % (0-10) Platelet Estimate Adequate (ADEQUATE) Erythrocyte Sedimentation Rate 63 (0-15) Sodium Level 138 mmol/L (136-145) Potassium Level 3.6 mmol/L (3.5-5.1) Chloride Level 104 mmol/L (98-107) Carbon Dioxide Level 26 mmol/L (21-32) Anion Gap 8 (6-14) Blood Urea Nitrogen 26 mg/dL (8-26) Creatinine 1.2 mg/dL (0.7-1.3) Estimated GFR (Cockcroft-Gault) 60.6 BUN/Creatinine Ratio 22 (6-20) Glucose Level 164 mg/dL (70-99) Lactic Acid Level 2.5 mmol/L (0.4-2.0) 1.7 mmol/L (0.4-2.0) Calcium Level 7.6 mg/dL (8.5-10.1) Total Bilirubin 2.4 mg/dL (0.2-1.0) Aspartate Amino Transf (AST/SGOT) 18 U/L (15-37) Alanine Aminotransferase (ALT/SGPT) 18 U/L (16-63) Alkaline Phosphatase 125 U/L (46-116) C-Reactive Protein, Quantitative 236.4 mg/L (0-3.3) Total Protein 6.4 g/dL (6.4-8.2) Albumin 3.0 g/dL (3.4-5.0) Albumin/Globulin Ratio 0.9 (1.0-1.7) Procalcitonin 0.13 ng/mL (0.00-0.10) Glucose (Fingerstick) 128 mg/dL (70-99) 169 mg/dL (70-99) Test 11/15/17 19:25 11/15/17 20:13 11/16/17 04:15 11/16/17 07:54 Lactic Acid Level 1.6 mmol/L (0.4-2.0) Glucose (Fingerstick) 161 mg/dL (70-99) 155 mg/dL (70-99) White Blood Count 17.1 x10^3/uL (4.0-11.0) Red Blood Count 3.75 x10^6/uL (4.30-5.70) Hemoglobin 12.2 g/dL (13.0-17.5) Hematocrit 34.9 % (39.0-53.0) Mean Corpuscular Volume 93 fL (79-100) Mean Corpuscular Hemoglobin 33 pg (25-35) Mean Corpuscular Hemoglobin Concent 35 g/dL (31-37) Red Cell Distribution Width 13.3 % (11.5-14.5) Platelet Count 211 x10^3/uL (140-400) Neutrophils (%) (Auto) 76 % (31-73) Lymphocytes (%) (Auto) 11 % (24-48) Monocytes (%) (Auto) 13 % (0-9) Eosinophils (%) (Auto) 0 % (0-3) Basophils (%) (Auto) 0 % (0-3) Neutrophils # (Auto) 13.0 x10^3uL (1.8-7.7) Lymphocytes # (Auto) 1.8 x10^3/uL (1.0-4.8) Monocytes # (Auto) 2.1 x10^3/uL (0.0-1.1) Eosinophils # (Auto) 0.1 x10^3/uL (0.0-0.7) Basophils # (Auto) 0.0 x10^3/uL (0.0-0.2) Sodium Level 141 mmol/L (136-145) Potassium Level 3.6 mmol/L (3.5-5.1) Chloride Level 106 mmol/L (98-107) Carbon Dioxide Level 27 mmol/L (21-32) Anion Gap 8 (6-14) Blood Urea Nitrogen 17 mg/dL (8-26) Creatinine 1.1 mg/dL (0.7-1.3) Estimated GFR (Cockcroft-Gault) 67.0 Glucose Level 180 mg/dL (70-99) Calcium Level 7.7 mg/dL (8.5-10.1) Laboratory Tests Test 11/15/17 11:25 11/15/17 14:13 11/15/17 15:15 11/15/17 17:12 White Blood Count 19.0 x10^3/uL (4.0-11.0) Red Blood Count 3.58 x10^6/uL (4.30-5.70) Hemoglobin 11.6 g/dL (13.0-17.5) Hematocrit 33.0 % (39.0-53.0) Mean Corpuscular Volume 92 fL (79-100) Mean Corpuscular Hemoglobin 32 pg (25-35) Mean Corpuscular Hemoglobin Concent 35 g/dL (31-37) Red Cell Distribution Width 13.0 % (11.5-14.5) Platelet Count 193 x10^3/uL (140-400) Neutrophils (%) (Auto) 73 % (31-73) Lymphocytes (%) (Auto) 15 % (24-48) Monocytes (%) (Auto) 12 % (0-9) Eosinophils (%) (Auto) 0 % (0-3) Basophils (%) (Auto) 0 % (0-3) Neutrophils # (Auto) 13.8 x10^3uL (1.8-7.7) Lymphocytes # (Auto) 2.9 x10^3/uL (1.0-4.8) Monocytes # (Auto) 2.2 x10^3/uL (0.0-1.1) Eosinophils # (Auto) 0.1 x10^3/uL (0.0-0.7) Basophils # (Auto) 0.1 x10^3/uL (0.0-0.2) Segmented Neutrophils % 79 % (35-66) Band Neutrophils % 4 % (0-9) Lymphocytes % 6 % (24-48) Monocytes % 11 % (0-10) Platelet Estimate Adequate (ADEQUATE) Erythrocyte Sedimentation Rate 63 (0-15) Sodium Level 138 mmol/L (136-145) Potassium Level 3.6 mmol/L (3.5-5.1) Chloride Level 104 mmol/L (98-107) Carbon Dioxide Level 26 mmol/L (21-32) Anion Gap 8 (6-14) Blood Urea Nitrogen 26 mg/dL (8-26) Creatinine 1.2 mg/dL (0.7-1.3) Estimated GFR (Cockcroft-Gault) 60.6 BUN/Creatinine Ratio 22 (6-20) Glucose Level 164 mg/dL (70-99) Lactic Acid Level 2.5 mmol/L (0.4-2.0) 1.7 mmol/L (0.4-2.0) Calcium Level 7.6 mg/dL (8.5-10.1) Total Bilirubin 2.4 mg/dL (0.2-1.0) Aspartate Amino Transf (AST/SGOT) 18 U/L (15-37) Alanine Aminotransferase (ALT/SGPT) 18 U/L (16-63) Alkaline Phosphatase 125 U/L (46-116) C-Reactive Protein, Quantitative 236.4 mg/L (0-3.3) Total Protein 6.4 g/dL (6.4-8.2) Albumin 3.0 g/dL (3.4-5.0) Albumin/Globulin Ratio 0.9 (1.0-1.7) Procalcitonin 0.13 ng/mL (0.00-0.10) Glucose (Fingerstick) 128 mg/dL (70-99) 169 mg/dL (70-99) Test 11/15/17 19:25 11/15/17 20:13 11/16/17 04:15 11/16/17 07:54 Lactic Acid Level 1.6 mmol/L (0.4-2.0) Glucose (Fingerstick) 161 mg/dL (70-99) 155 mg/dL (70-99) White Blood Count 17.1 x10^3/uL (4.0-11.0) Red Blood Count 3.75 x10^6/uL (4.30-5.70) Hemoglobin 12.2 g/dL (13.0-17.5) Hematocrit 34.9 % (39.0-53.0) Mean Corpuscular Volume 93 fL (79-100) Mean Corpuscular Hemoglobin 33 pg (25-35) Mean Corpuscular Hemoglobin Concent 35 g/dL (31-37) Red Cell Distribution Width 13.3 % (11.5-14.5) Platelet Count 211 x10^3/uL (140-400) Neutrophils (%) (Auto) 76 % (31-73) Lymphocytes (%) (Auto) 11 % (24-48) Monocytes (%) (Auto) 13 % (0-9) Eosinophils (%) (Auto) 0 % (0-3) Basophils (%) (Auto) 0 % (0-3) Neutrophils # (Auto) 13.0 x10^3uL (1.8-7.7) Lymphocytes # (Auto) 1.8 x10^3/uL (1.0-4.8) Monocytes # (Auto) 2.1 x10^3/uL (0.0-1.1) Eosinophils # (Auto) 0.1 x10^3/uL (0.0-0.7) Basophils # (Auto) 0.0 x10^3/uL (0.0-0.2) Sodium Level 141 mmol/L (136-145) Potassium Level 3.6 mmol/L (3.5-5.1) Chloride Level 106 mmol/L (98-107) Carbon Dioxide Level 27 mmol/L (21-32) Anion Gap 8 (6-14) Blood Urea Nitrogen 17 mg/dL (8-26) Creatinine 1.1 mg/dL (0.7-1.3) Estimated GFR (Cockcroft-Gault) 67.0 Glucose Level 180 mg/dL (70-99) Calcium Level 7.7 mg/dL (8.5-10.1) Images Images X-rays were reviewed Assessment/Plan Assessment/Plan I think it likely he has an abscess and osteomyelitis is noted additional cellulitis. I did discuss irrigation and debridement with likely wound VAC with this patient and he would like to proceed. We will get him a surgery scheduled for later today. SANDRA FERGUSON II, MD Nov 16, 2017 09:53
[2017-11-16] MEDS: metFORMIN 500 MG TABLET PO SCH ×2 (10:00→17:50)
[2017-11-16] MEDS: AMMONIUM LACTATE 12% TOPICAL LOTION 226GM BOTTLE. TP SCH (10:00)
[2017-11-16] MEDS ORDERED: fentaNYL PF VIAL 100 MCG/2 ML VIAL ONE (10:30)
[2017-11-16] MEDS ORDERED: PROPOFOL 20 ML IV ONE (10:30)
[2017-11-16] MEDS: LEVOTHYROXINE 25 MCG TABLET. PO SCH (10:30)
[2017-11-16] MEDS ORDERED: ONDANSETRON PF 4 MG/2 ML VIAL. ONE (10:30)
[2017-11-16] MEDS ORDERED: LIDOCAINE 2% PF Vial for OR 5 ML VIAL. ONE (10:30)
[2017-11-16] MEDS ORDERED: DEXAMETHASONE SOD PHOS 20 MG/5 ML VIAL. ONE (10:30)
[2017-11-16] MEDS ORDERED: FAMOTIDINE 20 MG/2 ML VIAL ONE (10:30)
[2017-11-16] MEDS ORDERED: MIDAZOLAM HCL/PF 2 MG/2 ML VIAL. ONE (10:30)
[2017-11-16] MEDS ORDERED: SEVOFLURANE 16 TO 30 MINUTES. IH ONE (11:25)
--- NOTE | 2017-11-16 11:33 | PDOC ---
PROGRESS NOTES Chief Complaint Chief Complaint Extensive diabetic foot infection , left with abscess and possible osteomyelitis Fever Leukocytosis DM HTN BC + g + cocci History of Present Illness History of Present Illness Out having OR Wound care recommended vitamin C and multivitamins for wound healing Blood pressure on the high side WBC 17, no fevers, hemoglobin 12, ESR elevated 63 Plan: IV antibiotics per ID Wound care Hemoglobin A1c pending Address the high blood pressure We'll see patient postop Postop labs Vitals Vitals Vital Signs Date Time Temp Pulse Resp B/P (MAP) Pulse Ox O2 Delivery O2 Flow Rate FiO2 11/16/17 10:32 99.0 108 15 146/68 94 Room Air 99.0 Physical Exam General: Alert, No acute distress Heart: Other (dorsalis pedis week at left foot) Abdomen: Normal bowel sounds, No tenderness Extremities: No clubbing, No cyanosis Labs LABS Laboratory Tests Test 11/15/17 14:13 11/15/17 15:15 11/15/17 17:12 11/15/17 19:25 Glucose (Fingerstick) 128 mg/dL (70-99) 169 mg/dL (70-99) Lactic Acid Level 1.7 mmol/L (0.4-2.0) 1.6 mmol/L (0.4-2.0) Test 11/15/17 20:13 11/16/17 04:15 11/16/17 07:54 Glucose (Fingerstick) 161 mg/dL (70-99) 155 mg/dL (70-99) White Blood Count 17.1 x10^3/uL (4.0-11.0) Red Blood Count 3.75 x10^6/uL (4.30-5.70) Hemoglobin 12.2 g/dL (13.0-17.5) Hematocrit 34.9 % (39.0-53.0) Mean Corpuscular Volume 93 fL (79-100) Mean Corpuscular Hemoglobin 33 pg (25-35) Mean Corpuscular Hemoglobin Concent 35 g/dL (31-37) Red Cell Distribution Width 13.3 % (11.5-14.5) Platelet Count 211 x10^3/uL (140-400) Neutrophils (%) (Auto) 76 % (31-73) Lymphocytes (%) (Auto) 11 % (24-48) Monocytes (%) (Auto) 13 % (0-9) Eosinophils (%) (Auto) 0 % (0-3) Basophils (%) (Auto) 0 % (0-3) Neutrophils # (Auto) 13.0 x10^3uL (1.8-7.7) Lymphocytes # (Auto) 1.8 x10^3/uL (1.0-4.8) Monocytes # (Auto) 2.1 x10^3/uL (0.0-1.1) Eosinophils # (Auto) 0.1 x10^3/uL (0.0-0.7) Basophils # (Auto) 0.0 x10^3/uL (0.0-0.2) Sodium Level 141 mmol/L (136-145) Potassium Level 3.6 mmol/L (3.5-5.1) Chloride Level 106 mmol/L (98-107) Carbon Dioxide Level 27 mmol/L (21-32) Anion Gap 8 (6-14) Blood Urea Nitrogen 17 mg/dL (8-26) Creatinine 1.1 mg/dL (0.7-1.3) Estimated GFR (Cockcroft-Gault) 67.0 Glucose Level 180 mg/dL (70-99) Calcium Level 7.7 mg/dL (8.5-10.1) Assessment and Plan Assessmemt and Plan Problems Medical Problems: (1) Fever Status: Acute (2) Tachycardia Status: Acute Comment Review of Relevant I have reviewed the following items billy (where applicable) has been applied. Labs Laboratory Tests Test 11/15/17 11:25 11/15/17 14:13 11/15/17 15:15 11/15/17 17:12 White Blood Count 19.0 x10^3/uL (4.0-11.0) Red Blood Count 3.58 x10^6/uL (4.30-5.70) Hemoglobin 11.6 g/dL (13.0-17.5) Hematocrit 33.0 % (39.0-53.0) Mean Corpuscular Volume 92 fL (79-100) Mean Corpuscular Hemoglobin 32 pg (25-35) Mean Corpuscular Hemoglobin Concent 35 g/dL (31-37) Red Cell Distribution Width 13.0 % (11.5-14.5) Platelet Count 193 x10^3/uL (140-400) Neutrophils (%) (Auto) 73 % (31-73) Lymphocytes (%) (Auto) 15 % (24-48) Monocytes (%) (Auto) 12 % (0-9) Eosinophils (%) (Auto) 0 % (0-3) Basophils (%) (Auto) 0 % (0-3) Neutrophils # (Auto) 13.8 x10^3uL (1.8-7.7) Lymphocytes # (Auto) 2.9 x10^3/uL (1.0-4.8) Monocytes # (Auto) 2.2 x10^3/uL (0.0-1.1) Eosinophils # (Auto) 0.1 x10^3/uL (0.0-0.7) Basophils # (Auto) 0.1 x10^3/uL (0.0-0.2) Segmented Neutrophils % 79 % (35-66) Band Neutrophils % 4 % (0-9) Lymphocytes % 6 % (24-48) Monocytes % 11 % (0-10) Platelet Estimate Adequate (ADEQUATE) Erythrocyte Sedimentation Rate 63 (0-15) Sodium Level 138 mmol/L (136-145) Potassium Level 3.6 mmol/L (3.5-5.1) Chloride Level 104 mmol/L (98-107) Carbon Dioxide Level 26 mmol/L (21-32) Anion Gap 8 (6-14) Blood Urea Nitrogen 26 mg/dL (8-26) Creatinine 1.2 mg/dL (0.7-1.3) Estimated GFR (Cockcroft-Gault) 60.6 BUN/Creatinine Ratio 22 (6-20) Glucose Level 164 mg/dL (70-99) Lactic Acid Level 2.5 mmol/L (0.4-2.0) 1.7 mmol/L (0.4-2.0) Calcium Level 7.6 mg/dL (8.5-10.1) Total Bilirubin 2.4 mg/dL (0.2-1.0) Aspartate Amino Transf (AST/SGOT) 18 U/L (15-37) Alanine Aminotransferase (ALT/SGPT) 18 U/L (16-63) Alkaline Phosphatase 125 U/L (46-116) C-Reactive Protein, Quantitative 236.4 mg/L (0-3.3) Total Protein 6.4 g/dL (6.4-8.2) Albumin 3.0 g/dL (3.4-5.0) Albumin/Globulin Ratio 0.9 (1.0-1.7) Procalcitonin 0.13 ng/mL (0.00-0.10) Glucose (Fingerstick) 128 mg/dL (70-99) 169 mg/dL (70-99) Test 11/15/17 19:25 11/15/17 20:13 11/16/17 04:15 11/16/17 07:54 Lactic Acid Level 1.6 mmol/L (0.4-2.0) Glucose (Fingerstick) 161 mg/dL (70-99) 155 mg/dL (70-99) White Blood Count 17.1 x10^3/uL (4.0-11.0) Red Blood Count 3.75 x10^6/uL (4.30-5.70) Hemoglobin 12.2 g/dL (13.0-17.5) Hematocrit 34.9 % (39.0-53.0) Mean Corpuscular Volume 93 fL (79-100) Mean Corpuscular Hemoglobin 33 pg (25-35) Mean Corpuscular Hemoglobin Concent 35 g/dL (31-37) Red Cell Distribution Width 13.3 % (11.5-14.5) Platelet Count 211 x10^3/uL (140-400) Neutrophils (%) (Auto) 76 % (31-73) Lymphocytes (%) (Auto) 11 % (24-48) Monocytes (%) (Auto) 13 % (0-9) Eosinophils (%) (Auto) 0 % (0-3) Basophils (%) (Auto) 0 % (0-3) Neutrophils # (Auto) 13.0 x10^3uL (1.8-7.7) Lymphocytes # (Auto) 1.8 x10^3/uL (1.0-4.8) Monocytes # (Auto) 2.1 x10^3/uL (0.0-1.1) Eosinophils # (Auto) 0.1 x10^3/uL (0.0-0.7) Basophils # (Auto) 0.0 x10^3/uL (0.0-0.2) Sodium Level 141 mmol/L (136-145) Potassium Level 3.6 mmol/L (3.5-5.1) Chloride Level 106 mmol/L (98-107) Carbon Dioxide Level 27 mmol/L (21-32) Anion Gap 8 (6-14) Blood Urea Nitrogen 17 mg/dL (8-26) Creatinine 1.1 mg/dL (0.7-1.3) Estimated GFR (Cockcroft-Gault) 67.0 Glucose Level 180 mg/dL (70-99) Calcium Level 7.7 mg/dL (8.5-10.1) Laboratory Tests Test 11/15/17 14:13 11/15/17 15:15 11/15/17 17:12 11/15/17 19:25 Glucose (Fingerstick) 128 mg/dL (70-99) 169 mg/dL (70-99) Lactic Acid Level 1.7 mmol/L (0.4-2.0) 1.6 mmol/L (0.4-2.0) Test 11/15/17 20:13 11/16/17 04:15 11/16/17 07:54 Glucose (Fingerstick) 161 mg/dL (70-99) 155 mg/dL (70-99) White Blood Count 17.1 x10^3/uL (4.0-11.0) Red Blood Count 3.75 x10^6/uL (4.30-5.70) Hemoglobin 12.2 g/dL (13.0-17.5) Hematocrit 34.9 % (39.0-53.0) Mean Corpuscular Volume 93 fL (79-100) Mean Corpuscular Hemoglobin 33 pg (25-35) Mean Corpuscular Hemoglobin Concent 35 g/dL (31-37) Red Cell Distribution Width 13.3 % (11.5-14.5) Platelet Count 211 x10^3/uL (140-400) Neutrophils (%) (Auto) 76 % (31-73) Lymphocytes (%) (Auto) 11 % (24-48) Monocytes (%) (Auto) 13 % (0-9) Eosinophils (%) (Auto) 0 % (0-3) Basophils (%) (Auto) 0 % (0-3) Neutrophils # (Auto) 13.0 x10^3uL (1.8-7.7) Lymphocytes # (Auto) 1.8 x10^3/uL (1.0-4.8) Monocytes # (Auto) 2.1 x10^3/uL (0.0-1.1) Eosinophils # (Auto) 0.1 x10^3/uL (0.0-0.7) Basophils # (Auto) 0.0 x10^3/uL (0.0-0.2) Sodium Level 141 mmol/L (136-145) Potassium Level 3.6 mmol/L (3.5-5.1) Chloride Level 106 mmol/L (98-107) Carbon Dioxide Level 27 mmol/L (21-32) Anion Gap 8 (6-14) Blood Urea Nitrogen 17 mg/dL (8-26) Creatinine 1.1 mg/dL (0.7-1.3) Estimated GFR (Cockcroft-Gault) 67.0 Glucose Level 180 mg/dL (70-99) Calcium Level 7.7 mg/dL (8.5-10.1) Microbiology 11/15/17 Blood Culture - Final, Complete Medications Current Medications Sodium Chloride 1,000 ml @ 1,770 mls/hr Q34M IV Last administered on at 11:49; Start 11/15/17 at 11:15; Stop 11/15/17 at 12:15; Status DC Sodium Chloride 500 ml @ 1,000 mls/hr PRN Q30MIN PRN IV SEE COMMENTS Last administered on 11/15/17at 13:20; Start 11/15/17 at 11:15 Vancomycin HCl (Vanco Per Pharmacy) 1 each PRN DAILY PRN MC SEE COMMENTS Last administered on 11/15/17at 15:02; Start 11/15/17 at 11:15 Piperacillin Sod/ Tazobactam Sod 4.5 gm/Sodium Chloride 100 ml @ 200 mls/hr Q6HRS IV Last administered on 11/16/17at 06:13; Start 11/15/17 at 12:00 Acetaminophen (Tylenol) 1,000 mg 1X ONCE PO Last administered on 11/15/17at 11: 45; Start 11/15/17 at 11:45; Stop 11/15/17 at 11:46; Status DC Ibuprofen (Motrin) 800 mg 1X ONCE PO Last administered on 11/15/17at 11:45; Start 11/15/17 at 11:30; Stop 11/15/17 at 11:31; Status DC Vancomycin HCl 1.75 gm/Sodium Chloride 500 ml @ 250 mls/hr 1X ONCE IV Last administered on 11/15/17at 12:08; Start 11/15/17 at 12:00; Stop 11/15/17 at 13:59 ; Status DC Ondansetron HCl (Zofran) 4 mg PRN Q8HRS PRN IV NAUSEA/VOMITING; Start 11/15/17 at 13:00; Stop 11/16/17 at 08:53; Status DC Morphine Sulfate (Morphine Sulfate) 4 mg PRN Q2HR PRN IV PAIN; Start 11/15/17 at 13:00; Stop 11/16/17 at 12:59 Acetaminophen (Tylenol) 650 mg PRN Q4HRS PRN PO FEVER Last administered on 11/16at 09:20; Start 11/15/17 at 13:00; Stop 11/16/17 at 12:59 Sodium Chloride 1,000 ml @ 125 mls/hr 1X ONCE IV Last administered on at 13:00; Start 11/15/17 at 13:00; Stop 11/15/17 at 20:59; Status DC Vancomycin HCl 1.25 gm/Sodium Chloride 250 ml @ 167 mls/hr Q24H IV ; Start at 12:00 Vancomycin HCl (Vancomycin Trough Level) 1 each 1X ONCE MC ; Start 11/17/17 at 11:30; Stop 11/17/17 at 11:31 Lactobacillus Rhamnosus (Culturelle) 1 cap BID PO Last administered on at 20:53; Start 11/15/17 at 21:00 Insulin Human Lispro (HumaLOG) 0-7 UNITS TIDWMEALS SQ ; Start 11/15/17 at 18:00 ; Stop 11/16/17 at 08:53; Status DC Dextrose (Dextrose 50%-Water Syringe) 12.5 gm PRN Q15MIN PRN IV SEE COMMENTS; Start 11/15/17 at 17:45; Stop 11/16/17 at 09:35; Status DC Ondansetron HCl (Zofran) 4 mg PRN Q6HRS PRN IV NAUSEA/VOMITING; Start 11/16/17 at 09:00 Insulin Human Lispro (HumaLOG) 0-9 UNITS TIDWMEALS SQ ; Start 11/16/17 at 12:00 Dextrose (Dextrose 50%-Water Syringe) 12.5 gm PRN Q15MIN PRN IV SEE COMMENTS; Start 11/16/17 at 09:00 Amlodipine Besylate (Norvasc) 5 mg BID PO ; Start 11/16/17 at 09:00 Clonidine HCl (Catapres) 0.1 mg QHS PO ; Start 11/16/17 at 21:00 Clonidine HCl (Catapres) 0.2 mg DAILY PO ; Start 11/16/17 at 09:00 Lisinopril (Prinivil) 20 mg BID PO ; Start 11/16/17 at 09:00 Lactic Acid (Lac-Hydrin) 1 frances BID TP ; Start 11/16/17 at 10:00 Non-Formulary Medication (Fluocinolone Acetonide Oil ) 20 ml 3X/WEEK OT ; Start 11/17/17 at 09:00; Status UNV Levothyroxine Sodium (Synthroid) 25 mcg DAILY07 PO ; Start 11/16/17 at 10:30 Metformin HCl (Glucophage) 500 mg BIDWMEALS PO ; Start 11/16/17 at 10:00 Labetalol HCl (Normodyne Iv Push) 10 mg PRN Q2HR PRN IVP HYPERTENSION, SEE COMMENTS; Start 11/16/17 at 09:00 Lidocaine HCl (Xylocaine 1% Pf 30ml Vial) 30 ml STK-MED ONCE .ROUTE ; Start at 09:18; Stop 11/16/17 at 10:20; Status DC Bupivacaine HCl (Sensorcaine Mpf 0.25%) 30 ml STK-MED ONCE .ROUTE ; Start at 09:18; Stop 11/16/17 at 10:20; Status DC Propofol 20 ml @ As Directed STK-MED ONCE IV ; Start 11/16/17 at 10:30; Stop at 10:31; Status DC Dexamethasone Sodium Phosphate (Decadron) 20 mg STK-MED ONCE .ROUTE ; Start at 10:30; Stop 11/16/17 at 10:31; Status DC Famotidine (Pepcid Vial) 20 mg STK-MED ONCE .ROUTE ; Start 11/16/17 at 10:30; Stop 11/16/17 at 10:31; Status DC Lidocaine HCl (Lidocaine Pf 2% Vial) 5 ml STK-MED ONCE .ROUTE ; Start 11/16/17 at 10:30; Stop 11/16/17 at 10:31; Status DC Ondansetron HCl (Zofran) 4 mg STK-MED ONCE .ROUTE ; Start 11/16/17 at 10:30; Stop 11/16/17 at 10:31; Status DC Fentanyl Citrate (Fentanyl 2ml Vial) 100 mcg STK-MED ONCE .ROUTE ; Start at 10:30; Stop 11/16/17 at 10:31; Status DC Midazolam HCl (Versed) 2 mg STK-MED ONCE .ROUTE ; Start 11/16/17 at 10:30; Stop 11/16/17 at 10:32; Status DC Sevoflurane (Ultane) 15 ml STK-MED ONCE IH ; Start 11/16/17 at 11:25; Stop 11/16 at 11:26; Status DC Active Scripts Active Reported Fluocinolone Acetonide Oil 20 Ml Drops 20 Ml OT 3X/WEEK Ammonium Lactate 385 Gm Cream..g. 385 Gm TP BID Metformin Hcl 500 Mg Tablet 1 Tab PO BID Lisinopril 20 Mg Tablet 1 Tab PO BID Levothyroxine Sodium 25 Mcg Tablet 1 Tab PO DAILY Clonidine Hcl 0.2 Mg Tablet 0.2 Mg PO DAILY Clonidine Hcl 0.1 Mg Tablet 1 Tab PO QHS Aspir 81 (Aspirin) 81 Mg Tablet.dr 1 Tab PO DAILY Amlodipine Besylate 5 Mg Tablet 5 Mg PO BID Vitals/I & O Vital Sign - Last 24 Hours 11/15/17 11/15/17 11/15/17 11/15/17 12:30 13:24 13:30 13:40 Temp 98.8 98.1 98.8 98.1 Pulse 100 83 78 75 Resp 20 20 20 16 B/P (MAP) 154/65 (94) 122/58 (79) 128/60 (82) Pulse Ox 96 96 95 96 O2 Delivery Room Air Room Air Room Air Room Air 11/15/17 11/15/17 11/15/17 11/15/17 16:21 19:00 20:30 23:00 Temp 98.3 100.4 98.3 100.4 Pulse 95 119 Resp 16 16 B/P (MAP) 156/71 (99) 164/82 (109) Pulse Ox 96 91 O2 Delivery Room Air Room Air Room Air Room Air 11/16/17 11/16/17 11/16/17 03:00 07:00 10:32 Temp 100.5 100.7 99.0 100.5 100.7 99.0 Pulse 103 104 108 Resp 16 16 15 B/P (MAP) 156/68 (97) 130/56 (80) 146/68 Pulse Ox 93 93 94 O2 Delivery Room Air Room Air Room Air Intake and Output 11/15/17 11/15/17 11/16/17 15:00 23:00 07:00 Intake Total 1600 ml 350 ml 4350 ml Output Total 1200 ml Balance 1600 ml -850 ml 4350 ml CAROLINA MORENO MD Nov 16, 2017 11:33
[2017-11-16] MEDS: PRENATAL MULTIVITAMIN TABLET. PO SCH (12:00)
--- NOTE | 2017-11-16 12:11 | PDOC4 ---
Operative Note Operative Note Date of procedure: 11/16/2017 Surgeon: Luis Ferguson Preoperative diagnosis: Left foot abscess with cellulitis Postoperative diagnosis #1 left foot abscess #2 likely left foot osteomyelitis Anesthesia: Gen. Procedure performed: #1 bone biopsy left foot #2 application of wound VAC to wound approximately 5 cm in diameter #3 irrigation debridement down to bone Complications: None Findings: Gross purulence and exposed bone with necrotic tissue at left forefoot Tourniquet time: None Specimens: Bone and tissue as well as swabs sent for culture Bone sent to pathology Blood loss: 5 mL Reason for procedure: Patient is very pleasant 67yo gentleman was asked to see in consultation for his draining foot wound. Please see my consult note for further details. Given the appearance of his foot, consistent with abscess and his positive blood cultures I opted to proceed with surgery sooner rather than later and discussed this with him. Description of procedure: Patient was greeted in the preoperative holding area where the correct extremity was verified and marked. He is taken back to the operative suite. He is maintaining on his scheduled antibiotics. Once in the operating room, nonsterile tourniquet applied to his left thigh. Left lower extremity was prepped and draped in our usual sterile fashion using Betadine paint. He remained on his hospital bed. We conducted our standard preoperative timeout. I began the procedure by wet away some of the Betadine inspecting his forefoot. He had the wound plantarly and the unhealthy-appearing tissue that what I suspect was a toe amputation site. I used a Rominger to debride this very thin tissue around his second distal metatarsal region which allowed immediate expression of foul-smelling purulent material. I took cultures at this point. I then used the Rominger and curet to debride the wound edges as well as devitalized tissue down deep. I used a scalpel to open up the plantar wound to better debride this as well. I opened up approximately 1 cm proximally and distally. I sent tissue for culture at this point as well. I then irrigated out with a couple 100 mL of sterile saline and inspected it further. I then continued my extensive debridement down to bone. I encountered his second metatarsal and took my bone biopsy at this time as well sent off bone for pathologic examination. I continued on with my debridement until I was certain I had removed all necrotic-appearing tissue. I then irrigated out the wound with 3000 mL of sterile saline, the remainder of it. At this point, I fashioned a wound VAC sponge and connected the 2 wounds which were continuous. I then fashioned the wound VAC to his anteromedial ankle to keep it out of the way of any vascular studies. I sealed the wound VAC off with adhesive and interpreted had a good seal, which it did. We then cleansed and dried the remainder of his left lower extremity and took drape left. He was awakened from his anesthesia. He tolerated surgery well. No complications. All counts correct 2. At the conclusion of surgery, he was taken to PACU in a stable and extubated condition. Postoperative plan is to readmitted to floor under the care of the hospital was. Antibiotic per infectious disease. Wound care will participate in his this gentleman is care as well. LUIS FERGUSON II, MD Nov 16, 2017 12:11
[2017-11-16] MEDS: VANCOMYCIN 1.25 GM in IV NORMAL SALINE 250ML 250 ML IV SCH (13:05)
[2017-11-16] MEDS: VANCOMYCIN PER PHARMACY MC PRN (13:13)
[2017-11-16] MEDS ORDERED: METOPROLOL TARTRATE 5 MG/5 ML VIAL. IVP ONE (13:15)
--- NOTE | 2017-11-16 13:21 | EKG ---
[facility] [address] [place] [address] Test Date: 2017-11-16 Test Time: 13:15:14 Pat Name: FABIOLA ANN Department: Room: 438 1 Gender: M Implant Coordinator: JANINE : 1950 Requested By: GOLD MARTIN Order Number: [id number] Reading MD: Andres Lang MD Measurements Intervals [place] Rate: 125 P: UT: QRS: 11 QRSD: 90 T: 4 QT: 312 QTc: 452 Interpretive Statements ATRIAL FIBRILLATION WITH RVR NON-SPECIFIC ST/T CHANGES Electronically Signed On 11-16-2017 15:11:56 CDT by Andres Lang MD
[2017-11-16] MEDS ORDERED: METOPROLOL TARTRATE 5 MG/5 ML VIAL. IVP PRN (13:30)
--- NOTE | 2017-11-16 13:44 | PDOC2 ---
GOLD MARTIN CLOTH BOIL OFF MACHINE OPERATOR 11/16/17 1344: CARDIAC CONSULT DATE OF CONSULT Date of Consult DATE: 11/16/17 TIME: 13:13 REASON FOR CONSULT Reason for Consult: AFIB REFERRING PHYSICIAN Referring Physician: Ozzie SOURCE Source: Chart review, Patient HISTORY OF PRESENT ILLNESS HISTORY OF PRESENT ILLNESS This is a 67 yo male admitted for complains of infected left foot diabetic ulcer , He has been seeing his integration project manager and wound clinic and has been on antibiotics. His foot has been noted with redness/swelling and appears to have had progression of infection prompting I & D per ortho. He does have multiple past amputations to the same foot. He denies any known PAD, angioplasties or stent or any vascular operations to his legs but he has been seen by Dr. Gauthier in the past. He has not seen any business process analyst and accdg to his medication list, he does not have any anticoagulation or BB or non- dihydropyridine CCB. Preop and intraop he has been noted with SR but post operatively while in PACU, he developed AFIB RVR. He does not have hx of AFIB or any arrhythmias, no stroke. Prior to surgery he has not been having any symptoms of CP, dizziness, palpitations, SOA. Presently he is on AFIB RVR ranging from 110-140s but no cardiac symptoms. He has mild left foot surgical pain which currently has a wound vac. He has sensation to both of his feet. His BP is stable and appears to be doing well and tolerated the surgery well. PAST MEDICAL HISTORY Cardiovascular: HTN, Hyperlipidemia, Other (LE varicosities. ) Pulmonary: No pertinent hx CENTRAL NERVOUS SYSTEM: Periperal neuropathy GI: No pertinent hx Heme/Onc: No pertinent hx Musculoskeletal: Osteoarthritis Rheumatologic: No pertinent hx Infectious disease: No pertinent hx ENT: No pertinent hx Renal/: No pertinent hx Endocrine: Diabetes (2), Hypothyroidism Dermatology: Other (diabetic foot ulcer) PAST SURGICAL HISTORY Past Surgical History: Other (left parital laceration repair, multiple left toe amputation) FAMILY HISTORY Family History: Coronary Artery Disease (SCD sister at 50 yo) SOCIAL HISTORY Smoke: No ALCOHOL: none Drugs: None Lives: Alone (senior care) CURRENT MEDICATIONS CURRENT MEDICATIONS Current Medications Medications (Trade) Dose Ordered Sig/Susan Route PRN Reason Start Time Stop Time Status Last Admin Dose Admin Vancomycin HCl 1.25 gm/Sodium Chloride 250 ml @ 167 mls/hr Q24H IV 11/16/17 12:00 11/16/17 13:05 Lactobacillus Rhamnosus (Culturelle) 1 cap BID PO 11/15/17 21:00 11/15/17 20:53 ALLERGIES ALLERGIES: Coded Allergies: No Known Drug Allergies (Unverified , 11/15/17) ROS Review of System 14 point ROS evaluated with pertinent positives noted per HPI PHYSICAL EXAM General: Alert, Oriented X3, Cooperative, No acute distress HEENT: Atraumatic, Mucous membr. moist/pink Lungs: Clear to auscultation, Normal air movement Heart: Other (AFIB RVR) Abdomen: Soft, No tenderness Extremities: No cyanosis, No edema Skin: No breakdown, No significant lesion Neuro: Normal speech, Sensation intact Psych/Mental Status: Mental status NL, Mood NL MUSCULOSKELETAL: Osteoarthritic changes both hands VITALS VITALS Vital Signs Date Time Temp Pulse Resp B/P (MAP) Pulse Ox O2 Delivery O2 Flow Rate FiO2 11/16/17 12:40 98.0 120 18 119/58 95 Room Air 98.0 11/16/17 12:10 10 LABS Lab: Laboratory Tests Test 11/15/17 14:13 11/15/17 15:15 11/15/17 17:12 11/15/17 19:25 Glucose (Fingerstick) 128 mg/dL (70-99) 169 mg/dL (70-99) Lactic Acid Level 1.7 mmol/L (0.4-2.0) 1.6 mmol/L (0.4-2.0) Test 11/15/17 20:13 11/16/17 04:15 11/16/17 07:54 11/16/17 12:02 Glucose (Fingerstick) 161 mg/dL (70-99) 155 mg/dL (70-99) 121 mg/dL (70-99) White Blood Count 17.1 x10^3/uL (4.0-11.0) Red Blood Count 3.75 x10^6/uL (4.30-5.70) Hemoglobin 12.2 g/dL (13.0-17.5) Hematocrit 34.9 % (39.0-53.0) Mean Corpuscular Volume 93 fL (79-100) Mean Corpuscular Hemoglobin 33 pg (25-35) Mean Corpuscular Hemoglobin Concent 35 g/dL (31-37) Red Cell Distribution Width 13.3 % (11.5-14.5) Platelet Count 211 x10^3/uL (140-400) Neutrophils (%) (Auto) 76 % (31-73) Lymphocytes (%) (Auto) 11 % (24-48) Monocytes (%) (Auto) 13 % (0-9) Eosinophils (%) (Auto) 0 % (0-3) Basophils (%) (Auto) 0 % (0-3) Neutrophils # (Auto) 13.0 x10^3uL (1.8-7.7) Lymphocytes # (Auto) 1.8 x10^3/uL (1.0-4.8) Monocytes # (Auto) 2.1 x10^3/uL (0.0-1.1) Eosinophils # (Auto) 0.1 x10^3/uL (0.0-0.7) Basophils # (Auto) 0.0 x10^3/uL (0.0-0.2) Sodium Level 141 mmol/L (136-145) Potassium Level 3.6 mmol/L (3.5-5.1) Chloride Level 106 mmol/L (98-107) Carbon Dioxide Level 27 mmol/L (21-32) Anion Gap 8 (6-14) Blood Urea Nitrogen 17 mg/dL (8-26) Creatinine 1.1 mg/dL (0.7-1.3) Estimated GFR (Cockcroft-Gault) 67.0 Glucose Level 180 mg/dL (70-99) Calcium Level 7.7 mg/dL (8.5-10.1) ASSESSMENT/PLAN ASSESSMENT/PLAN 1. Fever and Diabetic left ulcer/cellulitis with possible osteomyelitis: S/P I & D with wound vac today. 2. AFIB RVR: New onset.Asymptomatic. likely induced by infectious process and surgical stress response. 3. HTN: controlled 4. DM2/HLP 5. Hypothyroidism 6. PAD?: has seen by Dr. Gauthier in the past but denies any past interventions. 7. Hypomagnesemia Recommendations 1. Unknown past LE arterial imaging, if nothing recent then will consider arterial duplex to LE. 2. IV lopressor, On home amlodipine, lisinopril, and clonidine. Will hold amlodipine and clonidine for now with the addition of metoprolol. Start PO. . 3. Continue with home ASA. 4. Check TSH, EKG and TTE today. 5. Transfer to telemetry, further recommendation if no SR conversion overnight. 6. Replace Mg. NABILA GAMINO MD 11/16/17 1614: CARDIAC CONSULT ASSESSMENT/PLAN ASSESSMENT/PLAN Pt. seen and examined. Agree with above AIR CONDITIONER INSTALLER HELPER note. post-op afib. No prior cardiac issues no signifcant valve disease on exam. normal left femoral, popliteal palpable 2+ pulses. Dopplerable DP/PT pulses. Supportive care for now. Consider LE arterial duplex if wound not healing well. Will follow along. Plan for KELSY/CVN tomorrow if not converted. Start lovenox. GOLD MARTIN CLOTH BOIL OFF MACHINE OPERATOR Nov 16, 2017 13:44 NABILA GAMINO MD Nov 16, 2017 16:14
--- NOTE | 2017-11-16 13:47 | CONS ---
DATE OF CONSULTATION: 11/16/2017 REQUESTING PHYSICIAN: Dr. Abernathy. REASON FOR CONSULTATION: Left foot infection. HISTORY OF PRESENT ILLNESS: This is a 67-year-old gentleman, who has had multiple toe amputations in the past who came in with swelling and pain from the left foot. The patient was noted to have open wound with the alla pus coming out and swelling and tenderness. The patient also has been running fever, has leukocytosis and now blood culture is positive with Gram-positive cocci. The patient has been started on vancomycin and Zosyn. The patient denies any nausea, vomiting, diarrhea, chest pain, shortness of breath, abdominal pain, urinary symptoms or bowel symptoms. PAST MEDICAL HISTORY: Positive for diabetes mellitus, hypertension, hypothyroidism, cognitively challenged. He has had toe amputations done on the left foot. SOCIAL HISTORY: Negative for smoking, alcohol or illicit drug use. The patient does live in a halfway. ALLERGIES: No known drug allergies. CURRENT MEDICATIONS: The patient is on vancomycin and Zosyn. REVIEW OF SYSTEMS: As per HPI, all other systems reviewed and are negative. PHYSICAL EXAMINATION: GENERAL: Alert, oriented gentleman, not in distress. VITAL SIGNS: Stable with a T-max 101.3. Rest of the vital signs stable. HEENT: Anicteric. NECK: Supple, no JVP, no lymphadenopathy. LUNGS: Clear. HEART: S1, S2 regular. ABDOMEN: Benign. EXTREMITIES: Right lower extremity is unremarkable. Left lower extremity has amputated toes. There is opening on the plantar surface at the second and third metatarsal area with alla pus coming out. The distal foot is swollen, tender and full of infection. NEUROLOGIC: The patient does move all the extremities neurologically and able to answer questions to his baseline. LABORATORY DATA: White count is 17,000. Sed rate is 62, platelets are normal. BUN and creatinine is normal. His lactic acid was 1.6. His blood culture is positive right now 1/2 gram-positive cocci in clusters. Foot x-ray is showing pseudoarthrosis and chronic appearing fractures and multiple amputations. Ultrasound of the lower extremity done, which was negative for DVT. IMPRESSION: 1. Extensive diabetic foot infection. 2. Fever. 3. Leukocytosis. 4. Blood culture positive with Gram-positive cocci, 1/2 identification is pending. 5. Diabetes. 6. Hypertension. RECOMMENDATIONS: I have taken culture from the wound. I will also repeat the blood culture. Continue vancomycin and Zosyn. Discussed with Dr. Mcnair, he is taking the patient to Surgery to do I and D. We will check the cultures and adjust. Supportive care and we will continue to follow. Thank you very much, Dr. Abernathy, for giving me the opportunity to participate in this patient's care. JUSTINA ROSSI MD DR: EMERY/marcos JOB#: [id number] / [id number]
[2017-11-16] MEDS ORDERED: MAGNESIUM SULFATE 4GM 100 ML IV ONE (14:00)
[2017-11-16 14:07] LABS: CHOLESTEROL/HDL RATIO 6.1
[2017-11-16] MEDS: METOPROLOL TART IMMED RELEASE 25 MG TABLET. PO SCH ×2 (14:11→20:46)
[2017-11-16 16:00] VITALS: BP 114/73
[2017-11-16] MEDS: ASPIRIN ENTERIC COATED 81 MG TABLET.DR. PO SCH (17:48)
[2017-11-16 19:18] VITALS: BP 117/74
[2017-11-16] MEDS: ASCORBIC ACID 500 MG TABLET PO SCH (20:46)
[2017-11-16] MEDS ORDERED: cloNIDine HCL 0.1 MG TABLET PO SCH (21:00)
[2017-11-16 23:55] VITALS: BP 114/71
[2017-11-17] MEDS: AMMONIUM LACTATE 12% TOPICAL LOTION 226GM BOTTLE. TP SCH ×3 (00:13→20:45)
[2017-11-17] MEDS: PIPERACILLIN/TAZOBACTAM 4.5 GM in IV NORMAL SALINE 100ML 100 ML IV SCH ×4 (00:14→17:45)
[2017-11-17 03:17] VITALS: BP 117/67
[2017-11-17 04:39] LABS: BASO % 0 % (0-3); EOS % 0 % (0-3); HEMATOCRIT 29.2 % (39.0-53.0); HEMOGLOBIN 10.4 g/dL (13.0-17.5); LYMPH # 1.7 x10^3/uL (1.0-4.8); LYMPH % 13 % (24-48); MEAN CORPUSCULAR HEMOGLOBIN 33 pg (25-35); MEAN CORPUSCULAR HGB CONC 36 g/dL (31-37); MEAN CORPUSCULAR VOLUME 92 fL (79-100); MONO # 1.3 x10^3/uL (0.0-1.1); MONO % 10 % (0-9); NEUT # 10.2 x10^3uL (1.8-7.7); NEUT % 77 % (31-73); PLATELET COUNT 195 x10^3/uL (140-400); RED BLOOD COUNT 3.17 x10^6/uL (4.30-5.70); RED CELL DISTRIBUTION WIDTH 13.6 % (11.5-14.5); WHITE BLOOD COUNT 13.2 x10^3/uL (4.0-11.0)
[2017-11-17 05:15] LABS: CALCIUM 6.7 mg/dL (8.5-10.1); CREATININE 1.1 mg/dL (0.7-1.3); POTASSIUM 3.5 mmol/L (3.5-5.1)
[2017-11-17] MEDS: LEVOTHYROXINE 25 MCG TABLET. PO SCH (06:17)
[2017-11-17 07:00] VITALS: BP 142/67
--- NOTE | 2017-11-17 07:45 | CARD ---
MR#: [id number] Date of Study: 11/16/2017 Ordering Physician: GOLD MARTIN, Referring Physician: Kiara LYON: KINGS Gonzalez APPROVED REPORT EXAM: Two-dimensional and M-mode echocardiogram with Doppler and color Doppler. Other Information Quality : AverageHR: 100bpm Rhythm : Tachycardia INDICATION Atrial Fibrillation 2D DIMENSIONS Left Atrium(2D)4.0 (1.6-4.0cm)IVSd1.1 (0.7-1.1cm) Aortic Root(2D)3.4 (2.0-3.7cm)LVDd4.6 (3.9-5.9cm) LVOT Diameter2.1 (1.8-2.4cm)PWd1.0 (0.7-1.1cm) IVSs1.6 (0.8-1.2cm)LVDs3.4 (2.5-4.0cm) FS (%) 25.8 %PWs1.6 (0.8-1.2cm) SV49.2 mlLVEF(%)50.8 (>50%) M-Mode DIMENSIONS IVSd1.40 (0.7-1.1cm)LVDd4.84 (4.0-5.6cm) PWd1.17 (0.7-1.1cm)IVSs1.62 cm FS (%) 25 %LVDs3.63 (2.0-3.8cm) PWs1.44 cmLVEF(%)49 (>50%) Aortic Valve AoV Peak Hugo.106.3cm/sAoV VTI18.2cm AO Peak GR.4.5mmHgLVOT Peak Hugo.73.7cm/s LVOT VTI 13.64cmAO Mean GR.3mmHg ASAD (VMAX)1.07sk2AYK (VTI)2.51cm2 Pulmonary Valve PV Peak Kexezdzm16.0cm/sPV Peak Grad.3mmHg Tricuspid Valve TR P. Svcgsdpe302ni/sRAP [id number] TR Peak Gr.11mmHg LEFT VENTRICLE The left ventricle is normal size. There is borderline concentric left ventricular hypertrophy. Left ventricle systolic function is low normal. The Ejection Fraction is 50%. RIGHT VENTRICLE The right ventricle is normal size. The right ventricular systolic function is normal. ATRIA The left atrium is borderline dilated. The right atrium size is normal. The interatrial septum is int act with no evidence for an atrial septal defect or patent foramen ovale as noted on 2-D or Doppler i maging. AORTIC VALVE The aortic valve is mildly thickened. Doppler and Color Flow revealed no significant aortic regurgita tion. There is no significant aortic valvular stenosis. There is no aortic valvular vegetation. MITRAL VALVE The mitral valve is thickened but opens well. There is no evidence of mitral valve prolapse. There is no mitral valve stenosis. Doppler and Color-flow revealed trace mitral regurgitation. TRICUSPID VALVE The tricuspid valve leaflets are thickened or calcified, but open well. Doppler and Color Flow reveal ed mild tricuspid regurgitation. The PA pressure was estimated at 26 mmHg. There is no tricuspid valv e prolapse or vegetation. There is no tricuspid valve stenosis. PULMONIC VALVE The pulmonic valve is not well visualized. Doppler and Color Flow revealed trace pulmonic valvular re gurgitation. There is no pulmonic valvular stenosis. GREAT VESSELS The aortic root is normal in size. The IVC is dilated and collapses <50% with inspiration. PERICARDIAL EFFUSION There is no pleural effusion. There is no evidence of significant pericardial effusion. Critical Notification Critical Value: No <Conclusion> Left ventricle systolic function is low normal. The Ejection Fraction is 50%. Trace mitral regurgitation. Mild tricuspid regurgitation. The PA pressure was estimated at 26 mmHg. There is no evidence of significant pericardial effusion. Signed by : Ang Bryant, Electronically Approved : 11/17/2017 07:44:43
[2017-11-17] MEDS: ANTI-COAG MONITOR BY PHARMACY. MC PRN (08:06)
--- NOTE | 2017-11-17 08:43 | PDOC ---
Infectious Disease Note Subjective Subjective pt feeling good, had surgery ROS ROS no n/v/d/sob Vital Sign Vital Signs Vital Signs Date Time Temp Pulse Resp B/P (MAP) Pulse Ox O2 Delivery O2 Flow Rate FiO2 11/17/17 03:17 97.5 68 20 117/67 (84) 94 Room Air 97.5 11/16/17 14:10 2 Physical Exam PHYSICAL EXAM GENERAL: Alert, oriented gentleman, not in distress. VITAL SIGNS: Stable HEENT: Anicteric. NECK: Supple, no JVP, no lymphadenopathy. LUNGS: Clear. HEART: S1, S2 regular. ABDOMEN: Benign. EXTREMITIES: Right lower extremity is unremarkable. Left lower extremity has amputated toes. There is opening on the plantar surface at the second and third metatarsal area with alla pus coming out. The distal foot is swollen, tender and full of infection.,,,, now s/p I and d and wound vac in place NEUROLOGIC: The patient does move all the extremities neurologically and able to answer questions to his baseline. Labs Lab Laboratory Tests Test 11/16/17 12:02 11/16/17 16:08 11/17/17 04:00 11/17/17 08:03 Glucose (Fingerstick) 121 mg/dL (70-99) 232 mg/dL (70-99) 209 mg/dL (70-99) White Blood Count 13.2 x10^3/uL (4.0-11.0) Red Blood Count 3.17 x10^6/uL (4.30-5.70) Hemoglobin 10.4 g/dL (13.0-17.5) Hematocrit 29.2 % (39.0-53.0) Mean Corpuscular Volume 92 fL (79-100) Mean Corpuscular Hemoglobin 33 pg (25-35) Mean Corpuscular Hemoglobin Concent 36 g/dL (31-37) Red Cell Distribution Width 13.6 % (11.5-14.5) Platelet Count 195 x10^3/uL (140-400) Neutrophils (%) (Auto) 77 % (31-73) Lymphocytes (%) (Auto) 13 % (24-48) Monocytes (%) (Auto) 10 % (0-9) Eosinophils (%) (Auto) 0 % (0-3) Basophils (%) (Auto) 0 % (0-3) Neutrophils # (Auto) 10.2 x10^3uL (1.8-7.7) Lymphocytes # (Auto) 1.7 x10^3/uL (1.0-4.8) Monocytes # (Auto) 1.3 x10^3/uL (0.0-1.1) Eosinophils # (Auto) 0.0 x10^3/uL (0.0-0.7) Basophils # (Auto) 0.0 x10^3/uL (0.0-0.2) Sodium Level 140 mmol/L (136-145) Potassium Level 3.5 mmol/L (3.5-5.1) Chloride Level 107 mmol/L (98-107) Carbon Dioxide Level 25 mmol/L (21-32) Anion Gap 8 (6-14) Blood Urea Nitrogen 19 mg/dL (8-26) Creatinine 1.1 mg/dL (0.7-1.3) Estimated GFR (Cockcroft-Gault) 67.0 Glucose Level 267 mg/dL (70-99) Calcium Level 6.7 mg/dL (8.5-10.1) Magnesium Level 2.4 mg/dL (1.8-2.4) Micro ANAEROBIC-AEROBIC CULTURE PENDING ANAEROBIC RES 1 PENDING AEROBIC CULT PENDING AEROBIC RES 1 PENDING GRAM STAIN Final Final report GRAM STAIN RES 1 Final Comment No white blood cells seen. GRAM STAIN RES 2 Final Comment Moderate gram negative rods. GRAM STAIN RES 3 Final Comment Few gram positive cocci Performed at: DA - [facility] [address], [place], [place] [id number] Flame Burner: JEFFERSON Barone MD, Phone: [phone] BLOOD CULTURE Final GRAM POSITIVE COCCI IN CLUSTERS, SUGGESTIVE OF STAPH, IN 1 OF 2 BOTTLES, ONE SET DRAWN. CALLED TO KINDRA YATES RN ON 4N AT 7:55 ON 11/16/17 DW MT SENT TO [facility] FOR FURTHER WORKUP. Objective Assessment Extensive diabetic foot infection , left with abscess and possible osteomyelitis ,, s/p I and D 11/16/17 Fever Leukocytosis DM HTN BC + g + cocci, id pending Plan Plan of Care vanc and zosyn repeat bc supportive care d/w Dr Mcnair check cultures need picc for rn long term care antibiotics JUSTINA ROSSI MD Nov 17, 2017 08:43
[2017-11-17] MEDS: LACTOBACILLUS RHAMNOSUS GG 1 CAPSULE. PO SCH ×2 (08:48→20:44)
[2017-11-17] MEDS: ASPIRIN ENTERIC COATED 81 MG TABLET.DR. PO SCH (08:48)
[2017-11-17] MEDS: ASCORBIC ACID 500 MG TABLET PO SCH ×2 (08:48→20:44)
[2017-11-17] MEDS: PRENATAL MULTIVITAMIN TABLET. PO SCH (08:48)
[2017-11-17] MEDS: metFORMIN 500 MG TABLET PO SCH ×2 (08:48→17:44)
[2017-11-17] MEDS: METOPROLOL TART IMMED RELEASE 25 MG TABLET. PO SCH ×2 (08:50→20:45)
[2017-11-17] MEDS: INSULIN LISPRO 300 UNITS/3 ML INSULN.PEN. SQ SCH ×3 (08:54→18:06)
[2017-11-17] MEDS: amLODIPine BESYLATE 5 MG TABLET PO SCH (08:58)
[2017-11-17] MEDS: LISINOPRIL 20 MG TABLET PO SCH (08:59)
[2017-11-17] MEDS ORDERED: FLUOCINOLONE ACETONIDE OIL OT SCH (09:00)
--- NOTE | 2017-11-17 09:46 | PDOC ---
ORTHO PROGRESS NOTES Subjective Hai tells me that his foot feels better. He is feeling overall better and more awake today. He has a lot of concerns about placement after this hospitalization Vitals Vital Signs Date Time Temp Pulse Resp B/P (MAP) Pulse Ox O2 Delivery O2 Flow Rate FiO2 11/17/17 08:59 68 142/67 11/17/17 07:00 98.1 18 93 Room Air 98.1 11/16/17 14:10 2 Labs Laboratory Tests Test 11/15/17 11:25 11/15/17 14:13 11/15/17 15:15 11/15/17 17:12 White Blood Count 19.0 x10^3/uL (4.0-11.0) Red Blood Count 3.58 x10^6/uL (4.30-5.70) Hemoglobin 11.6 g/dL (13.0-17.5) Hematocrit 33.0 % (39.0-53.0) Mean Corpuscular Volume 92 fL (79-100) Mean Corpuscular Hemoglobin 32 pg (25-35) Mean Corpuscular Hemoglobin Concent 35 g/dL (31-37) Red Cell Distribution Width 13.0 % (11.5-14.5) Platelet Count 193 x10^3/uL (140-400) Neutrophils (%) (Auto) 73 % (31-73) Lymphocytes (%) (Auto) 15 % (24-48) Monocytes (%) (Auto) 12 % (0-9) Eosinophils (%) (Auto) 0 % (0-3) Basophils (%) (Auto) 0 % (0-3) Neutrophils # (Auto) 13.8 x10^3uL (1.8-7.7) Lymphocytes # (Auto) 2.9 x10^3/uL (1.0-4.8) Monocytes # (Auto) 2.2 x10^3/uL (0.0-1.1) Eosinophils # (Auto) 0.1 x10^3/uL (0.0-0.7) Basophils # (Auto) 0.1 x10^3/uL (0.0-0.2) Segmented Neutrophils % 79 % (35-66) Band Neutrophils % 4 % (0-9) Lymphocytes % 6 % (24-48) Monocytes % 11 % (0-10) Platelet Estimate Adequate (ADEQUATE) Erythrocyte Sedimentation Rate 63 (0-15) Sodium Level 138 mmol/L (136-145) Potassium Level 3.6 mmol/L (3.5-5.1) Chloride Level 104 mmol/L (98-107) Carbon Dioxide Level 26 mmol/L (21-32) Anion Gap 8 (6-14) Blood Urea Nitrogen 26 mg/dL (8-26) Creatinine 1.2 mg/dL (0.7-1.3) Estimated GFR (Cockcroft-Gault) 60.6 BUN/Creatinine Ratio 22 (6-20) Glucose Level 164 mg/dL (70-99) Lactic Acid Level 2.5 mmol/L (0.4-2.0) 1.7 mmol/L (0.4-2.0) Calcium Level 7.6 mg/dL (8.5-10.1) Total Bilirubin 2.4 mg/dL (0.2-1.0) Aspartate Amino Transf (AST/SGOT) 18 U/L (15-37) Alanine Aminotransferase (ALT/SGPT) 18 U/L (16-63) Alkaline Phosphatase 125 U/L (46-116) C-Reactive Protein, Quantitative 236.4 mg/L (0-3.3) Total Protein 6.4 g/dL (6.4-8.2) Albumin 3.0 g/dL (3.4-5.0) Albumin/Globulin Ratio 0.9 (1.0-1.7) Procalcitonin 0.13 ng/mL (0.00-0.10) Glucose (Fingerstick) 128 mg/dL (70-99) 169 mg/dL (70-99) Test 11/15/17 19:25 11/15/17 20:13 11/16/17 04:15 11/16/17 07:54 Lactic Acid Level 1.6 mmol/L (0.4-2.0) Glucose (Fingerstick) 161 mg/dL (70-99) 155 mg/dL (70-99) White Blood Count 17.1 x10^3/uL (4.0-11.0) Red Blood Count 3.75 x10^6/uL (4.30-5.70) Hemoglobin 12.2 g/dL (13.0-17.5) Hematocrit 34.9 % (39.0-53.0) Mean Corpuscular Volume 93 fL (79-100) Mean Corpuscular Hemoglobin 33 pg (25-35) Mean Corpuscular Hemoglobin Concent 35 g/dL (31-37) Red Cell Distribution Width 13.3 % (11.5-14.5) Platelet Count 211 x10^3/uL (140-400) Neutrophils (%) (Auto) 76 % (31-73) Lymphocytes (%) (Auto) 11 % (24-48) Monocytes (%) (Auto) 13 % (0-9) Eosinophils (%) (Auto) 0 % (0-3) Basophils (%) (Auto) 0 % (0-3) Neutrophils # (Auto) 13.0 x10^3uL (1.8-7.7) Lymphocytes # (Auto) 1.8 x10^3/uL (1.0-4.8) Monocytes # (Auto) 2.1 x10^3/uL (0.0-1.1) Eosinophils # (Auto) 0.1 x10^3/uL (0.0-0.7) Basophils # (Auto) 0.0 x10^3/uL (0.0-0.2) Sodium Level 141 mmol/L (136-145) Potassium Level 3.6 mmol/L (3.5-5.1) Chloride Level 106 mmol/L (98-107) Carbon Dioxide Level 27 mmol/L (21-32) Anion Gap 8 (6-14) Blood Urea Nitrogen 17 mg/dL (8-26) Creatinine 1.1 mg/dL (0.7-1.3) Estimated GFR (Cockcroft-Gault) 67.0 Glucose Level 180 mg/dL (70-99) Calcium Level 7.7 mg/dL (8.5-10.1) Magnesium Level 1.3 mg/dL (1.8-2.4) Triglycerides Level 105 mg/dL (0-150) Cholesterol Level 86 mg/dL (0-200) LDL Cholesterol, Calculated 51 mg/dL (0-100) VLDL Cholesterol, Calculated 21 mg/dL (0-40) Non-HDL Cholesterol Calculated 72 mg/dL (0-129) HDL Cholesterol 14 mg/dL (40-60) Cholesterol/HDL Ratio 6.1 Thyroid Stimulating Hormone (TSH) 2.219 uIU/mL (0.358-3.74) Test 11/16/17 12:02 11/16/17 16:08 11/17/17 04:00 11/17/17 08:03 Glucose (Fingerstick) 121 mg/dL (70-99) 232 mg/dL (70-99) 209 mg/dL (70-99) White Blood Count 13.2 x10^3/uL (4.0-11.0) Red Blood Count 3.17 x10^6/uL (4.30-5.70) Hemoglobin 10.4 g/dL (13.0-17.5) Hematocrit 29.2 % (39.0-53.0) Mean Corpuscular Volume 92 fL (79-100) Mean Corpuscular Hemoglobin 33 pg (25-35) Mean Corpuscular Hemoglobin Concent 36 g/dL (31-37) Red Cell Distribution Width 13.6 % (11.5-14.5) Platelet Count 195 x10^3/uL (140-400) Neutrophils (%) (Auto) 77 % (31-73) Lymphocytes (%) (Auto) 13 % (24-48) Monocytes (%) (Auto) 10 % (0-9) Eosinophils (%) (Auto) 0 % (0-3) Basophils (%) (Auto) 0 % (0-3) Neutrophils # (Auto) 10.2 x10^3uL (1.8-7.7) Lymphocytes # (Auto) 1.7 x10^3/uL (1.0-4.8) Monocytes # (Auto) 1.3 x10^3/uL (0.0-1.1) Eosinophils # (Auto) 0.0 x10^3/uL (0.0-0.7) Basophils # (Auto) 0.0 x10^3/uL (0.0-0.2) Sodium Level 140 mmol/L (136-145) Potassium Level 3.5 mmol/L (3.5-5.1) Chloride Level 107 mmol/L (98-107) Carbon Dioxide Level 25 mmol/L (21-32) Anion Gap 8 (6-14) Blood Urea Nitrogen 19 mg/dL (8-26) Creatinine 1.1 mg/dL (0.7-1.3) Estimated GFR (Cockcroft-Gault) 67.0 Glucose Level 267 mg/dL (70-99) Calcium Level 6.7 mg/dL (8.5-10.1) Magnesium Level 2.4 mg/dL (1.8-2.4) Laboratory Tests Test 11/16/17 12:02 11/16/17 16:08 11/17/17 04:00 11/17/17 08:03 Glucose (Fingerstick) 121 mg/dL (70-99) 232 mg/dL (70-99) 209 mg/dL (70-99) White Blood Count 13.2 x10^3/uL (4.0-11.0) Red Blood Count 3.17 x10^6/uL (4.30-5.70) Hemoglobin 10.4 g/dL (13.0-17.5) Hematocrit 29.2 % (39.0-53.0) Mean Corpuscular Volume 92 fL (79-100) Mean Corpuscular Hemoglobin 33 pg (25-35) Mean Corpuscular Hemoglobin Concent 36 g/dL (31-37) Red Cell Distribution Width 13.6 % (11.5-14.5) Platelet Count 195 x10^3/uL (140-400) Neutrophils (%) (Auto) 77 % (31-73) Lymphocytes (%) (Auto) 13 % (24-48) Monocytes (%) (Auto) 10 % (0-9) Eosinophils (%) (Auto) 0 % (0-3) Basophils (%) (Auto) 0 % (0-3) Neutrophils # (Auto) 10.2 x10^3uL (1.8-7.7) Lymphocytes # (Auto) 1.7 x10^3/uL (1.0-4.8) Monocytes # (Auto) 1.3 x10^3/uL (0.0-1.1) Eosinophils # (Auto) 0.0 x10^3/uL (0.0-0.7) Basophils # (Auto) 0.0 x10^3/uL (0.0-0.2) Sodium Level 140 mmol/L (136-145) Potassium Level 3.5 mmol/L (3.5-5.1) Chloride Level 107 mmol/L (98-107) Carbon Dioxide Level 25 mmol/L (21-32) Anion Gap 8 (6-14) Blood Urea Nitrogen 19 mg/dL (8-26) Creatinine 1.1 mg/dL (0.7-1.3) Estimated GFR (Cockcroft-Gault) 67.0 Glucose Level 267 mg/dL (70-99) Calcium Level 6.7 mg/dL (8.5-10.1) Magnesium Level 2.4 mg/dL (1.8-2.4) Notes He is awake and alert and sitting up in bed eating breakfast. His speech is clear, he answers and asks appropriate questions. Examination of his left lower extremity reveals a wound VAC is in place with a good seal. He still has some erythema and fullness to his forefoot, but it is better. Assessment and Plan I think he would benefit from long-term wound VAC and IV antibiotics to try to save his foot. He would prefer to go this route rather than a more proximal amputation. I think this is very reasonable right now. SANDRA FERGUSON II, MD Nov 17, 2017 09:46
--- NOTE | 2017-11-17 10:58 | PDOC ---
GOLD MARTIN DEPUTY FIRE MARSHAL 11/17/17 1058: CARDIO Progress Notes Date and Time Date of Service 11/17/2017 Time of Evaluation 1040 Subjective Subjective: No Chest Pain, No shortness of breath, No Palpitations Vitals Vitals Vital Signs Date Time Temp Pulse Resp B/P (MAP) Pulse Ox O2 Delivery O2 Flow Rate FiO2 11/17/17 08:59 68 142/67 11/17/17 07:00 98.1 18 93 Room Air 98.1 11/16/17 14:10 2 Weight Weight [ ] Input and Output Intake and Output Intake and Output 11/17/17 07:00 Intake Total 1200 ml Output Total 832 ml Balance 368 ml Intake Oral 600 ml IV Total 600 ml Output Urine Total 825 ml Stool Total 2 ml Estimated Blood Loss 5 ml # Voids 3 # Bowel Movements 2 Laboratory Labs Laboratory Tests Test 11/16/17 12:02 11/16/17 16:08 11/17/17 04:00 11/17/17 08:03 Glucose (Fingerstick) 121 mg/dL (70-99) 232 mg/dL (70-99) 209 mg/dL (70-99) White Blood Count 13.2 x10^3/uL (4.0-11.0) Red Blood Count 3.17 x10^6/uL (4.30-5.70) Hemoglobin 10.4 g/dL (13.0-17.5) Hematocrit 29.2 % (39.0-53.0) Mean Corpuscular Volume 92 fL (79-100) Mean Corpuscular Hemoglobin 33 pg (25-35) Mean Corpuscular Hemoglobin Concent 36 g/dL (31-37) Red Cell Distribution Width 13.6 % (11.5-14.5) Platelet Count 195 x10^3/uL (140-400) Neutrophils (%) (Auto) 77 % (31-73) Lymphocytes (%) (Auto) 13 % (24-48) Monocytes (%) (Auto) 10 % (0-9) Eosinophils (%) (Auto) 0 % (0-3) Basophils (%) (Auto) 0 % (0-3) Neutrophils # (Auto) 10.2 x10^3uL (1.8-7.7) Lymphocytes # (Auto) 1.7 x10^3/uL (1.0-4.8) Monocytes # (Auto) 1.3 x10^3/uL (0.0-1.1) Eosinophils # (Auto) 0.0 x10^3/uL (0.0-0.7) Basophils # (Auto) 0.0 x10^3/uL (0.0-0.2) Sodium Level 140 mmol/L (136-145) Potassium Level 3.5 mmol/L (3.5-5.1) Chloride Level 107 mmol/L (98-107) Carbon Dioxide Level 25 mmol/L (21-32) Anion Gap 8 (6-14) Blood Urea Nitrogen 19 mg/dL (8-26) Creatinine 1.1 mg/dL (0.7-1.3) Estimated GFR (Cockcroft-Gault) 67.0 Glucose Level 267 mg/dL (70-99) Calcium Level 6.7 mg/dL (8.5-10.1) Magnesium Level 2.4 mg/dL (1.8-2.4) Microbiology Micro Microbiology 11/16/17 Blood Culture - Preliminary, Resulted NO GROWTH AFTER 1 DAY 11/15/17 Anaerobic/Aerobic Culture, Resulted Pending 11/15/17 Anaerobic Culture Result 1 (ILDA), Resulted Pending 11/15/17 Aerobic Culture, Resulted Pending 11/15/17 Aerobic Culture Result 1 (ILDA), Resulted Pending 11/15/17 Gram Stain - Final, Resulted 11/15/17 Gram Stain Result 1 (ILDA) - Final, Resulted 11/15/17 Gram Stain Result 2 (ILDA) - Final, Resulted 11/15/17 Gram Stain Result 3 (ILDA) - Final, Resulted Physical Exam HEENT: Neck Supple W Full Motion Chest: Symmetric LUNGS: Clear to Auscultation Heart: S1S2, RRR (SR) Abdomen: Soft N/T Extremities: No Calf Tenderness, Other (+ doppler to left DP and 2+ to right DP. trace LLE edema, cellulitis to left foot, positive sensation/warm, S/P I & D with wound vac in place. ) Neurology: alert, oriented, follow commands Assessment Assessment 1. Fever and Diabetic left ulcer/cellulitis with possible osteomyelitis: S/P I & D with wound vac POD#1 per ortho. ID following. 2. AFIB RVR: Induced by infectious process and surgical stress response. Maintain SR since last night. EF and WM nml without significant valvular insufficiency. 3. HTN: controlled. 4. DM2/HLP: lipids on goal 5. Hypothyroidism 6. Suspect underlying PAD to LLE 7. Hypomagnesemia: resolved Recommendations 1. Unable to obtain any PAD workup in the past. Arterial duplex today to LE 2. Continue to hold clonidine. Continue with current dose of norvasc, lisinopril and metoprolol. 3. Continue with home ASA. Statin 4. May transfer to NABILA GAMINO MD 11/17/17 1601: CARDIO Progress Notes Plan Plan Patient seen and examined. Agree with above nurse practitioner note. 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 In effort to help improve his wound healing as best as possible we will plan for diagnostic coronary angiogram on Monday. Thank you for this consultation. If the patient has been discharged over the weekend we will set up his outpatient angiogram next week. GOLD MARTIN APRN Nov 17, 2017 10:58 NABILA GAMINO MD Nov 17, 2017 16:01
[2017-11-17 11:00] VITALS: BP 134/63
--- NOTE | 2017-11-17 12:06 | RAD ---
MR#: [id number] Date of Study: 11/17/2017 Ordering Physician: GOLD MARTIN, Referring Physician: Kiara LYON: Comfort Davila RDMS, RVT, RTR APPROVED REPORT Patient Location: IN-PATIENT Indications PAD with Left Foot Ulcer VELOCITY AND DOPPLER WAVEFORM ANALYSIS RIGHT cm/secWaveformSeverity LEFT cm/secWaveform Severity pCFA 78.8pCFA 84.8 Prof Fem Art. 107.7Prof Fem Art. 58.9 Fem Art Prox. 114.6Fem Art Prox. 75.7 Fem Art Mid. 170.1Fem Art Mid. 135.5 Fem Art Dist. 100.0Fem Art Dist. 269.4 Pop Art(AK) 41.7Pop Art(AK) 105.5 TAILOR'S AIDE Prox. 22.8PTA Prox. TAILOR'S AIDE Dist. TAILOR'S AIDE Dist. 103.3 Per Art Prox. 75.8Per Art Prox. 60.2 ANA Prox. 54.6ATA Prox. 101.8 DPA 69.9DPA 76.5 Findings Grayscale images of the right lower extremity arterial vessels reveal mild diffuse atherosclerotic pl aque. Spectral waveforms in the right common femoral, superficial femoral arteries are mostly triphasic and biphasic. There is slightly diminished velocities in the popliteal artery at 41 7 m/s. The posterior tibial artery appears to be occluded on the right side. Normal 2 vessel runoff with patent peroneal and anterior tibial vessels are noted with appropriate velocities on the right side. On the left there is a monophasic waveforms extending from the proximal superficial femoral artery to the below-knee vessels. There is elevated velocities in the mid to distal SFA consistent with greate r than 50% stenosis. There is three-vessel runoff below the knee with monophasic waveforms Critical Notification Critical Value: No <Conclusion> 1. Mild to moderate right lower extremity arterial disease. 2. Probable greater than 50% stenosis involving the left mid to distal superficial femoral artery. Signed by : Andres Lang, Electronically Approved : 11/17/2017 12:04:44
[2017-11-17 12:08] LABS: VANC TR 6.8 mcg/mL (10.0-20.0)
--- NOTE | 2017-11-17 14:10 | PDOC2 ---
CONSULT Date of Consult Date of Consult DATE: 11/17/17 TIME: 13:59 Reason for Consult Reason for Consult: Foot wound Referring Physician Referring Physician: Dr. Abernathy Identification/Chief Complaint Chief Complaint Left diabetic foot ulcer Problems: (1) Type 2 diabetes mellitus with foot ulcer (2) Non-pressure chronic ulcer of other part of left foot with necrosis of bone Source Source: Chart review, Patient History of Present Illness Reason for Visit: This 67-year-old patient describes development of left foot wound which eventuated in presentation to the emergency department. He is currently receiving IV antibiotics following appropriate culture. He has had surgical debridement with clinical demonstration of osteomyelitis. The patient is cognitively challenged and specifics are obtained from the chart review. He reports no significant discomfort at this time. It is not clear that he is diabetic shoe wear or was effectively offloaded prior to hospitalization. He has significant prior history of diabetic foot ulcerations resulting in minor amputation. Past Medical History Cardiovascular: HTN, Hyperlipidemia, Other (LE varicosities. ) Pulmonary: No pertinent hx CENTRAL NERVOUS SYSTEM: Periperal neuropathy GI: No pertinent hx Heme/Onc: No pertinent hx Musculoskeletal: Osteoarthritis Rheumatologic: No pertinent hx Infectious disease: No pertinent hx ENT: No pertinent hx Renal/: No pertinent hx Endocrine: Diabetes (2), Hypothyroidism Dermatology: Other (diabetic foot ulcer) Past Surgical History Past Surgical History: Other (left parital laceration repair, multiple left toe amputation) Family History Family History: Coronary Artery Disease (SCD sister at 50 yo) Social History No ALCOHOL: none Drugs: None Lives: Alone ([facility]) Current Problem List Problem List Problems Medical Problems: (1) Fever Status: Acute (2) Tachycardia Status: Acute Current Medications Current Medications Current Medications Sodium Chloride 1,000 ml @ 1,770 mls/hr Q34M IV Last administered on at 11:49; Start 11/15/17 at 11:15; Stop 11/15/17 at 12:15; Status DC Sodium Chloride 500 ml @ 1,000 mls/hr PRN Q30MIN PRN IV SEE COMMENTS Last administered on 11/15/17at 13:20; Start 11/15/17 at 11:15 Vancomycin HCl (Vanco Per Pharmacy) 1 each PRN DAILY PRN MC SEE COMMENTS Last administered on 11/16/17at 13:13; Start 11/15/17 at 11:15 Piperacillin Sod/ Tazobactam Sod 4.5 gm/Sodium Chloride 100 ml @ 200 mls/hr Q6HRS IV Last administered on 11/17/17at 12:27; Start 11/15/17 at 12:00 Acetaminophen (Tylenol) 1,000 mg 1X ONCE PO Last administered on 11/15/17at 11: 45; Start 11/15/17 at 11:45; Stop 11/15/17 at 11:46; Status DC Ibuprofen (Motrin) 800 mg 1X ONCE PO Last administered on 11/15/17at 11:45; Start 11/15/17 at 11:30; Stop 11/15/17 at 11:31; Status DC Vancomycin HCl 1.75 gm/Sodium Chloride 500 ml @ 250 mls/hr 1X ONCE IV Last administered on 11/15/17at 12:08; Start 11/15/17 at 12:00; Stop 11/15/17 at 13:59 ; Status DC Ondansetron HCl (Zofran) 4 mg PRN Q8HRS PRN IV NAUSEA/VOMITING; Start 11/15/17 at 13:00; Stop 11/16/17 at 08:53; Status DC Morphine Sulfate (Morphine Sulfate) 4 mg PRN Q2HR PRN IV PAIN; Start 11/15/17 at 13:00; Stop 11/16/17 at 12:59; Status DC Acetaminophen (Tylenol) 650 mg PRN Q4HRS PRN PO FEVER Last administered on 11/16at 09:20; Start 11/15/17 at 13:00; Stop 11/16/17 at 12:59; Status DC Sodium Chloride 1,000 ml @ 125 mls/hr 1X ONCE IV Last administered on at 13:00; Start 11/15/17 at 13:00; Stop 11/15/17 at 20:59; Status DC Vancomycin HCl 1.25 gm/Sodium Chloride 250 ml @ 167 mls/hr Q24H IV Last administered on 11/16/17at 13:05; Start 11/16/17 at 12:00 Vancomycin HCl (Vancomycin Trough Level) 1 each 1X ONCE MC Last administered on 11/17/17at 11:30; Start 11/17/17 at 11:30; Stop 11/17/17 at 11:31; Status DC Lactobacillus Rhamnosus (Culturelle) 1 cap BID PO Last administered on at 08:48; Start 11/15/17 at 21:00 Insulin Human Lispro (HumaLOG) 0-7 UNITS TIDWMEALS SQ ; Start 11/15/17 at 18:00 ; Stop 11/16/17 at 08:53; Status DC Dextrose (Dextrose 50%-Water Syringe) 12.5 gm PRN Q15MIN PRN IV SEE COMMENTS; Start 11/15/17 at 17:45; Stop 11/16/17 at 09:35; Status DC Ondansetron HCl (Zofran) 4 mg PRN Q6HRS PRN IV NAUSEA/VOMITING; Start 11/16/17 at 09:00 Insulin Human Lispro (HumaLOG) 0-9 UNITS TIDWMEALS SQ Last administered on 11/17at 12:33; Start 11/16/17 at 12:00 Dextrose (Dextrose 50%-Water Syringe) 12.5 gm PRN Q15MIN PRN IV SEE COMMENTS; Start 11/16/17 at 09:00 Amlodipine Besylate (Norvasc) 5 mg BID PO ; Start 11/16/17 at 09:00; Stop at 15:43; Status DC Clonidine HCl (Catapres) 0.1 mg QHS PO ; Start 11/16/17 at 21:00; Stop 11/16/17 at 21:00; Status DC Clonidine HCl (Catapres) 0.2 mg DAILY PO ; Start 11/16/17 at 09:00; Stop at 15:43; Status DC Lisinopril (Prinivil) 20 mg BID PO ; Start 11/16/17 at 09:00; Stop 11/16/17 at 15:43; Status DC Lactic Acid (Lac-Hydrin) 1 frances BID TP Last administered on 11/17/17at 09:03; Start 11/16/17 at 10:00 Non-Formulary Medication (Fluocinolone Acetonide Oil ) 20 ml 3X/WEEK OT ; Start 11/17/17 at 09:00; Status UNV Levothyroxine Sodium (Synthroid) 25 mcg DAILY07 PO Last administered on at 06:17; Start 11/16/17 at 10:30 Metformin HCl (Glucophage) 500 mg BIDWMEALS PO Last administered on 11/17/17at 08:48; Start 11/16/17 at 10:00 Labetalol HCl (Normodyne Iv Push) 10 mg PRN Q2HR PRN IVP HYPERTENSION, SEE COMMENTS; Start 11/16/17 at 09:00 Lidocaine HCl (Xylocaine 1% Pf 30ml Vial) 30 ml STK-MED ONCE .ROUTE ; Start at 09:18; Stop 11/16/17 at 10:20; Status DC Bupivacaine HCl (Sensorcaine Mpf 0.25%) 30 ml STK-MED ONCE .ROUTE ; Start at 09:18; Stop 11/16/17 at 10:20; Status DC Propofol 20 ml @ As Directed STK-MED ONCE IV ; Start 11/16/17 at 10:30; Stop at 10:31; Status DC Dexamethasone Sodium Phosphate (Decadron) 20 mg STK-MED ONCE .ROUTE ; Start at 10:30; Stop 11/16/17 at 10:31; Status DC Famotidine (Pepcid Vial) 20 mg STK-MED ONCE .ROUTE ; Start 11/16/17 at 10:30; Stop 11/16/17 at 10:31; Status DC Lidocaine HCl (Lidocaine Pf 2% Vial) 5 ml STK-MED ONCE .ROUTE ; Start 11/16/17 at 10:30; Stop 11/16/17 at 10:31; Status DC Ondansetron HCl (Zofran) 4 mg STK-MED ONCE .ROUTE ; Start 11/16/17 at 10:30; Stop 11/16/17 at 10:31; Status DC Fentanyl Citrate (Fentanyl 2ml Vial) 100 mcg STK-MED ONCE .ROUTE ; Start at 10:30; Stop 11/16/17 at 10:31; Status DC Midazolam HCl (Versed) 2 mg STK-MED ONCE .ROUTE ; Start 11/16/17 at 10:30; Stop 11/16/17 at 10:32; Status DC Sevoflurane (Ultane) 15 ml STK-MED ONCE IH ; Start 11/16/17 at 11:25; Stop 11/16 at 11:26; Status DC Multivit/ Folic Acid/Iron (Multivitamin ) 1 tab DAILY PO Last administered on 11/17/17 08:48; Start 11/16/17 at 12:00 Ascorbic Acid (Vitamin C) 500 mg BID PO Last administered on 11/17/17at 08:48; Start 11/16/17 at 21:00 Metoprolol Tartrate (Lopressor Vial) 5 mg 1X ONCE IVP Last administered on at 13:26; Start 11/16/17 at 13:15; Stop 11/16/17 at 13:19; Status DC Metoprolol Tartrate (Lopressor) 25 mg BID PO Last administered on 11/17/17at 08: 50; Start 11/16/17 at 14:00 Metoprolol Tartrate (Lopressor Vial) 5 mg PRN Q6HRS PRN IVP TACHYCARDIA; Start 11/16/17 at 13:30 Aspirin (Ecotrin) 81 mg DAILYWBKFT PO Last administered on 11/17/17at 08:48; Start 11/16/17 at 14:00 Magnesium Sulfate/ Dextrose 100 ml @ 25 mls/hr 1X ONCE IV Last administered on 11/16/17at 17:48; Start 11/16/17 at 14:00; Stop 11/16/17 at 17:59; Status DC Amlodipine Besylate (Norvasc) 5 mg DAILY PO Last administered on 11/17/17at 08: 58; Start 11/17/17 at 09:00 Lisinopril (Prinivil) 20 mg DAILY PO Last administered on 11/17/17at 08:59; Start 11/17/17 at 09:00 Enoxaparin Sodium (Lovenox 80mg Syringe) 80 mg Q12HR SQ Last administered on at 08:49; Start 11/16/17 at 16:00 Info (Anti-Coagulation Monitoring By Pharmacy) 1 each PRN DAILY PRN MC SEE COMMENTS Last administered on 11/17/17at 08:06; Start 11/17/17 at 07:45 Active Scripts Active Reported Fluocinolone Acetonide Oil 20 Ml Drops 20 Ml OT 3X/WEEK Ammonium Lactate 385 Gm Cream..g. 385 Gm TP BID Metformin Hcl 500 Mg Tablet 1 Tab PO BID Lisinopril 20 Mg Tablet 1 Tab PO BID Levothyroxine Sodium 25 Mcg Tablet 1 Tab PO DAILY Clonidine Hcl 0.2 Mg Tablet 0.2 Mg PO DAILY Clonidine Hcl 0.1 Mg Tablet 1 Tab PO QHS Aspir 81 (Aspirin) 81 Mg Tablet. 1 Tab PO DAILY Amlodipine Besylate 5 Mg Tablet 5 Mg PO BID Allergies Allergies: Coded Allergies: No Known Drug Allergies (Unverified , 11/15/17) ROS Review of System Review of systems negative except as noted below Eyes: Yes Uses glasses Skin: Yes Other (history of diabetic foot ulcers resulting in previous amputation) Physical Exam General: Alert, Cooperative, No acute distress HEENT: Atraumatic, PERRLA Lungs: Clear to auscultation, Normal air movement Heart: Regular rate Abdomen: Soft, No tenderness Extremities: No clubbing, No cyanosis, No edema, Other Skin: Other (post surgical debridement wound measures 4.6 cm x 2 cm x 1.3 cm with exposed bone in the base.) Neuro: Normal speech Psych/Mental Status: Mood NL MUSCULOSKELETAL: Not examined Vitals VITALS Vital Signs Date Time Temp Pulse Resp B/P (MAP) Pulse Ox O2 Delivery O2 Flow Rate FiO2 11/17/17 11:00 97.7 71 18 134/63 (86) 98 Room Air 97.7 11/16/17 14:10 2 Labs Labs Laboratory Tests Test 11/15/17 14:13 11/15/17 15:15 11/15/17 17:12 11/15/17 19:25 Glucose (Fingerstick) 128 mg/dL (70-99) 169 mg/dL (70-99) Lactic Acid Level 1.7 mmol/L (0.4-2.0) 1.6 mmol/L (0.4-2.0) Test 11/15/17 20:13 11/16/17 04:15 11/16/17 07:54 11/16/17 12:02 Glucose (Fingerstick) 161 mg/dL (70-99) 155 mg/dL (70-99) 121 mg/dL (70-99) White Blood Count 17.1 x10^3/uL (4.0-11.0) Red Blood Count 3.75 x10^6/uL (4.30-5.70) Hemoglobin 12.2 g/dL (13.0-17.5) Hematocrit 34.9 % (39.0-53.0) Mean Corpuscular Volume 93 fL (79-100) Mean Corpuscular Hemoglobin 33 pg (25-35) Mean Corpuscular Hemoglobin Concent 35 g/dL (31-37) Red Cell Distribution Width 13.3 % (11.5-14.5) Platelet Count 211 x10^3/uL (140-400) Neutrophils (%) (Auto) 76 % (31-73) Lymphocytes (%) (Auto) 11 % (24-48) Monocytes (%) (Auto) 13 % (0-9) Eosinophils (%) (Auto) 0 % (0-3) Basophils (%) (Auto) 0 % (0-3) Neutrophils # (Auto) 13.0 x10^3uL (1.8-7.7) Lymphocytes # (Auto) 1.8 x10^3/uL (1.0-4.8) Monocytes # (Auto) 2.1 x10^3/uL (0.0-1.1) Eosinophils # (Auto) 0.1 x10^3/uL (0.0-0.7) Basophils # (Auto) 0.0 x10^3/uL (0.0-0.2) Sodium Level 141 mmol/L (136-145) Potassium Level 3.6 mmol/L (3.5-5.1) Chloride Level 106 mmol/L (98-107) Carbon Dioxide Level 27 mmol/L (21-32) Anion Gap 8 (6-14) Blood Urea Nitrogen 17 mg/dL (8-26) Creatinine 1.1 mg/dL (0.7-1.3) Estimated GFR (Cockcroft-Gault) 67.0 Glucose Level 180 mg/dL (70-99) Calcium Level 7.7 mg/dL (8.5-10.1) Magnesium Level 1.3 mg/dL (1.8-2.4) Triglycerides Level 105 mg/dL (0-150) Cholesterol Level 86 mg/dL (0-200) LDL Cholesterol, Calculated 51 mg/dL (0-100) VLDL Cholesterol, Calculated 21 mg/dL (0-40) Non-HDL Cholesterol Calculated 72 mg/dL (0-129) HDL Cholesterol 14 mg/dL (40-60) Cholesterol/HDL Ratio 6.1 Thyroid Stimulating Hormone (TSH) 2.219 uIU/mL (0.358-3.74) Test 11/16/17 16:08 11/17/17 04:00 11/17/17 08:03 11/17/17 11:25 Glucose (Fingerstick) 232 mg/dL (70-99) 209 mg/dL (70-99) White Blood Count 13.2 x10^3/uL (4.0-11.0) Red Blood Count 3.17 x10^6/uL (4.30-5.70) Hemoglobin 10.4 g/dL (13.0-17.5) Hematocrit 29.2 % (39.0-53.0) Mean Corpuscular Volume 92 fL (79-100) Mean Corpuscular Hemoglobin 33 pg (25-35) Mean Corpuscular Hemoglobin Concent 36 g/dL (31-37) Red Cell Distribution Width 13.6 % (11.5-14.5) Platelet Count 195 x10^3/uL (140-400) Neutrophils (%) (Auto) 77 % (31-73) Lymphocytes (%) (Auto) 13 % (24-48) Monocytes (%) (Auto) 10 % (0-9) Eosinophils (%) (Auto) 0 % (0-3) Basophils (%) (Auto) 0 % (0-3) Neutrophils # (Auto) 10.2 x10^3uL (1.8-7.7) Lymphocytes # (Auto) 1.7 x10^3/uL (1.0-4.8) Monocytes # (Auto) 1.3 x10^3/uL (0.0-1.1) Eosinophils # (Auto) 0.0 x10^3/uL (0.0-0.7) Basophils # (Auto) 0.0 x10^3/uL (0.0-0.2) Sodium Level 140 mmol/L (136-145) Potassium Level 3.5 mmol/L (3.5-5.1) Chloride Level 107 mmol/L (98-107) Carbon Dioxide Level 25 mmol/L (21-32) Anion Gap 8 (6-14) Blood Urea Nitrogen 19 mg/dL (8-26) Creatinine 1.1 mg/dL (0.7-1.3) Estimated GFR (Cockcroft-Gault) 67.0 Glucose Level 267 mg/dL (70-99) Calcium Level 6.7 mg/dL (8.5-10.1) Magnesium Level 2.4 mg/dL (1.8-2.4) Vancomycin Level Trough 6.8 mcg/mL (10.0-20.0) Vancomycin Last Dose Date 11/16/17 Vancomycin Last Dose Time 1200 Test 11/17/17 12:17 Glucose (Fingerstick) 230 mg/dL (70-99) Laboratory Tests Test 11/16/17 16:08 11/17/17 04:00 11/17/17 08:03 11/17/17 11:25 Glucose (Fingerstick) 232 mg/dL (70-99) 209 mg/dL (70-99) White Blood Count 13.2 x10^3/uL (4.0-11.0) Red Blood Count 3.17 x10^6/uL (4.30-5.70) Hemoglobin 10.4 g/dL (13.0-17.5) Hematocrit 29.2 % (39.0-53.0) Mean Corpuscular Volume 92 fL (79-100) Mean Corpuscular Hemoglobin 33 pg (25-35) Mean Corpuscular Hemoglobin Concent 36 g/dL (31-37) Red Cell Distribution Width 13.6 % (11.5-14.5) Platelet Count 195 x10^3/uL (140-400) Neutrophils (%) (Auto) 77 % (31-73) Lymphocytes (%) (Auto) 13 % (24-48) Monocytes (%) (Auto) 10 % (0-9) Eosinophils (%) (Auto) 0 % (0-3) Basophils (%) (Auto) 0 % (0-3) Neutrophils # (Auto) 10.2 x10^3uL (1.8-7.7) Lymphocytes # (Auto) 1.7 x10^3/uL (1.0-4.8) Monocytes # (Auto) 1.3 x10^3/uL (0.0-1.1) Eosinophils # (Auto) 0.0 x10^3/uL (0.0-0.7) Basophils # (Auto) 0.0 x10^3/uL (0.0-0.2) Sodium Level 140 mmol/L (136-145) Potassium Level 3.5 mmol/L (3.5-5.1) Chloride Level 107 mmol/L (98-107) Carbon Dioxide Level 25 mmol/L (21-32) Anion Gap 8 (6-14) Blood Urea Nitrogen 19 mg/dL (8-26) Creatinine 1.1 mg/dL (0.7-1.3) Estimated GFR (Cockcroft-Gault) 67.0 Glucose Level 267 mg/dL (70-99) Calcium Level 6.7 mg/dL (8.5-10.1) Magnesium Level 2.4 mg/dL (1.8-2.4) Vancomycin Level Trough 6.8 mcg/mL (10.0-20.0) Vancomycin Last Dose Date 11/16/17 Vancomycin Last Dose Time 1200 Test 11/17/17 12:17 Glucose (Fingerstick) 230 mg/dL (70-99) Images Images Arterial Doppler demonstrates moderate stenosis to the left SFA Assessment/Plan Assessment/Plan Diabetic [place] 3 ulceration of the left forefoot with evidence of bone necrosis Negative pressure wound therapy continued and monitored with wound care nursing. It is my understanding that vascular intervention with cardiology is anticipated. We'll be happy to follow along. It is hoped that patient can be maintained in an initial nonweightbearing status. We will anticipate transcutaneous oximetry following vascular intervention. Prolonged IV antibiotic therapy per CRIS POWERS DO Nov 17, 2017 14:10
--- NOTE | 2017-11-17 14:21 | PDOC ---
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 Extensive diabetic foot infection , left with abscess and possible osteomyelitis Fever Leukocytosis DM HTN BC + g + cocci History of Present Illness History of Present Illness Pt seen and examined VSS CO pain Vitals Vitals Vital Signs Date Time Temp Pulse Resp B/P (MAP) Pulse Ox O2 Delivery O2 Flow Rate FiO2 11/17/17 11:00 97.7 71 18 134/63 (86) 98 Room Air 97.7 11/16/17 14:10 2 Physical Exam Physical Exam GENERAL: Alert, oriented gentleman, not in distress. VITAL SIGNS: Stable HEENT: Anicteric. NECK: Supple, no JVP, no lymphadenopathy. LUNGS: Clear. HEART: S1, S2 regular. ABDOMEN: Benign. EXTREMITIES: Right lower extremity is unremarkable. Left lower extremity has amputated toes. There is opening on the plantar surface at the second and third metatarsal area with alla pus coming out. The distal foot is swollen, tender and full of infection.,,,, now s/p I and d and wound vac in place NEUROLOGIC: The patient does move all the extremities neurologically and able to answer questions to his baseline. General: Alert, Cooperative, No acute distress Heart: Regular rate Lungs: Clear Abdomen: Soft, No tenderness Extremities: No clubbing, No cyanosis, No edema, Other Skin: No rashes, Other (post surgical debridement wound measures 4.6 cm x 2 cm x 1.3 cm with exposed bone in the base.) Labs LABS Laboratory Tests Test 11/16/17 16:08 11/17/17 04:00 11/17/17 08:03 11/17/17 11:25 Glucose (Fingerstick) 232 mg/dL (70-99) 209 mg/dL (70-99) White Blood Count 13.2 x10^3/uL (4.0-11.0) Red Blood Count 3.17 x10^6/uL (4.30-5.70) Hemoglobin 10.4 g/dL (13.0-17.5) Hematocrit 29.2 % (39.0-53.0) Mean Corpuscular Volume 92 fL (79-100) Mean Corpuscular Hemoglobin 33 pg (25-35) Mean Corpuscular Hemoglobin Concent 36 g/dL (31-37) Red Cell Distribution Width 13.6 % (11.5-14.5) Platelet Count 195 x10^3/uL (140-400) Neutrophils (%) (Auto) 77 % (31-73) Lymphocytes (%) (Auto) 13 % (24-48) Monocytes (%) (Auto) 10 % (0-9) Eosinophils (%) (Auto) 0 % (0-3) Basophils (%) (Auto) 0 % (0-3) Neutrophils # (Auto) 10.2 x10^3uL (1.8-7.7) Lymphocytes # (Auto) 1.7 x10^3/uL (1.0-4.8) Monocytes # (Auto) 1.3 x10^3/uL (0.0-1.1) Eosinophils # (Auto) 0.0 x10^3/uL (0.0-0.7) Basophils # (Auto) 0.0 x10^3/uL (0.0-0.2) Sodium Level 140 mmol/L (136-145) Potassium Level 3.5 mmol/L (3.5-5.1) Chloride Level 107 mmol/L (98-107) Carbon Dioxide Level 25 mmol/L (21-32) Anion Gap 8 (6-14) Blood Urea Nitrogen 19 mg/dL (8-26) Creatinine 1.1 mg/dL (0.7-1.3) Estimated GFR (Cockcroft-Gault) 67.0 Glucose Level 267 mg/dL (70-99) Calcium Level 6.7 mg/dL (8.5-10.1) Magnesium Level 2.4 mg/dL (1.8-2.4) Vancomycin Level Trough 6.8 mcg/mL (10.0-20.0) Vancomycin Last Dose Date 11/16/17 Vancomycin Last Dose Time 1200 Test 11/17/17 12:17 Glucose (Fingerstick) 230 mg/dL (70-99) Review of Systems Review of Systems co pain co weakness Assessment and Plan Assessmemt and Plan Problems Medical Problems: (1) Fever Status: Acute (2) Tachycardia Status: Acute DX Diabetic foot with probable osteo Plan: IV antibiotics per ID Wound care Hemoglobin A1c pending Address the high blood pressure Labs Comment Review of Relevant I have reviewed the following items billy (where applicable) has been applied. Labs Laboratory Tests Test 11/15/17 15:15 11/15/17 17:12 11/15/17 19:25 11/15/17 20:13 Lactic Acid Level 1.7 mmol/L (0.4-2.0) 1.6 mmol/L (0.4-2.0) Glucose (Fingerstick) 169 mg/dL (70-99) 161 mg/dL (70-99) Test 11/16/17 04:15 11/16/17 07:54 11/16/17 12:02 11/16/17 16:08 White Blood Count 17.1 x10^3/uL (4.0-11.0) Red Blood Count 3.75 x10^6/uL (4.30-5.70) Hemoglobin 12.2 g/dL (13.0-17.5) Hematocrit 34.9 % (39.0-53.0) Mean Corpuscular Volume 93 fL (79-100) Mean Corpuscular Hemoglobin 33 pg (25-35) Mean Corpuscular Hemoglobin Concent 35 g/dL (31-37) Red Cell Distribution Width 13.3 % (11.5-14.5) Platelet Count 211 x10^3/uL (140-400) Neutrophils (%) (Auto) 76 % (31-73) Lymphocytes (%) (Auto) 11 % (24-48) Monocytes (%) (Auto) 13 % (0-9) Eosinophils (%) (Auto) 0 % (0-3) Basophils (%) (Auto) 0 % (0-3) Neutrophils # (Auto) 13.0 x10^3uL (1.8-7.7) Lymphocytes # (Auto) 1.8 x10^3/uL (1.0-4.8) Monocytes # (Auto) 2.1 x10^3/uL (0.0-1.1) Eosinophils # (Auto) 0.1 x10^3/uL (0.0-0.7) Basophils # (Auto) 0.0 x10^3/uL (0.0-0.2) Sodium Level 141 mmol/L (136-145) Potassium Level 3.6 mmol/L (3.5-5.1) Chloride Level 106 mmol/L (98-107) Carbon Dioxide Level 27 mmol/L (21-32) Anion Gap 8 (6-14) Blood Urea Nitrogen 17 mg/dL (8-26) Creatinine 1.1 mg/dL (0.7-1.3) Estimated GFR (Cockcroft-Gault) 67.0 Glucose Level 180 mg/dL (70-99) Calcium Level 7.7 mg/dL (8.5-10.1) Magnesium Level 1.3 mg/dL (1.8-2.4) Triglycerides Level 105 mg/dL (0-150) Cholesterol Level 86 mg/dL (0-200) LDL Cholesterol, Calculated 51 mg/dL (0-100) VLDL Cholesterol, Calculated 21 mg/dL (0-40) Non-HDL Cholesterol Calculated 72 mg/dL (0-129) HDL Cholesterol 14 mg/dL (40-60) Cholesterol/HDL Ratio 6.1 Thyroid Stimulating Hormone (TSH) 2.219 uIU/mL (0.358-3.74) Glucose (Fingerstick) 155 mg/dL (70-99) 121 mg/dL (70-99) 232 mg/dL (70-99) Test 11/17/17 04:00 11/17/17 08:03 11/17/17 11:25 11/17/17 12:17 White Blood Count 13.2 x10^3/uL (4.0-11.0) Red Blood Count 3.17 x10^6/uL (4.30-5.70) Hemoglobin 10.4 g/dL (13.0-17.5) Hematocrit 29.2 % (39.0-53.0) Mean Corpuscular Volume 92 fL (79-100) Mean Corpuscular Hemoglobin 33 pg (25-35) Mean Corpuscular Hemoglobin Concent 36 g/dL (31-37) Red Cell Distribution Width 13.6 % (11.5-14.5) Platelet Count 195 x10^3/uL (140-400) Neutrophils (%) (Auto) 77 % (31-73) Lymphocytes (%) (Auto) 13 % (24-48) Monocytes (%) (Auto) 10 % (0-9) Eosinophils (%) (Auto) 0 % (0-3) Basophils (%) (Auto) 0 % (0-3) Neutrophils # (Auto) 10.2 x10^3uL (1.8-7.7) Lymphocytes # (Auto) 1.7 x10^3/uL (1.0-4.8) Monocytes # (Auto) 1.3 x10^3/uL (0.0-1.1) Eosinophils # (Auto) 0.0 x10^3/uL (0.0-0.7) Basophils # (Auto) 0.0 x10^3/uL (0.0-0.2) Sodium Level 140 mmol/L (136-145) Potassium Level 3.5 mmol/L (3.5-5.1) Chloride Level 107 mmol/L (98-107) Carbon Dioxide Level 25 mmol/L (21-32) Anion Gap 8 (6-14) Blood Urea Nitrogen 19 mg/dL (8-26) Creatinine 1.1 mg/dL (0.7-1.3) Estimated GFR (Cockcroft-Gault) 67.0 Glucose Level 267 mg/dL (70-99) Calcium Level 6.7 mg/dL (8.5-10.1) Magnesium Level 2.4 mg/dL (1.8-2.4) Glucose (Fingerstick) 209 mg/dL (70-99) 230 mg/dL (70-99) Vancomycin Level Trough 6.8 mcg/mL (10.0-20.0) Vancomycin Last Dose Date 11/16/17 Vancomycin Last Dose Time 1200 Laboratory Tests Test 11/16/17 16:08 11/17/17 04:00 11/17/17 08:03 11/17/17 11:25 Glucose (Fingerstick) 232 mg/dL (70-99) 209 mg/dL (70-99) White Blood Count 13.2 x10^3/uL (4.0-11.0) Red Blood Count 3.17 x10^6/uL (4.30-5.70) Hemoglobin 10.4 g/dL (13.0-17.5) Hematocrit 29.2 % (39.0-53.0) Mean Corpuscular Volume 92 fL (79-100) Mean Corpuscular Hemoglobin 33 pg (25-35) Mean Corpuscular Hemoglobin Concent 36 g/dL (31-37) Red Cell Distribution Width 13.6 % (11.5-14.5) Platelet Count 195 x10^3/uL (140-400) Neutrophils (%) (Auto) 77 % (31-73) Lymphocytes (%) (Auto) 13 % (24-48) Monocytes (%) (Auto) 10 % (0-9) Eosinophils (%) (Auto) 0 % (0-3) Basophils (%) (Auto) 0 % (0-3) Neutrophils # (Auto) 10.2 x10^3uL (1.8-7.7) Lymphocytes # (Auto) 1.7 x10^3/uL (1.0-4.8) Monocytes # (Auto) 1.3 x10^3/uL (0.0-1.1) Eosinophils # (Auto) 0.0 x10^3/uL (0.0-0.7) Basophils # (Auto) 0.0 x10^3/uL (0.0-0.2) Sodium Level 140 mmol/L (136-145) Potassium Level 3.5 mmol/L (3.5-5.1) Chloride Level 107 mmol/L (98-107) Carbon Dioxide Level 25 mmol/L (21-32) Anion Gap 8 (6-14) Blood Urea Nitrogen 19 mg/dL (8-26) Creatinine 1.1 mg/dL (0.7-1.3) Estimated GFR (Cockcroft-Gault) 67.0 Glucose Level 267 mg/dL (70-99) Calcium Level 6.7 mg/dL (8.5-10.1) Magnesium Level 2.4 mg/dL (1.8-2.4) Vancomycin Level Trough 6.8 mcg/mL (10.0-20.0) Vancomycin Last Dose Date 11/16/17 Vancomycin Last Dose Time 1200 Test 11/17/17 12:17 Glucose (Fingerstick) 230 mg/dL (70-99) Microbiology 11/16/17 Blood Culture - Preliminary, Resulted NO GROWTH AFTER 1 DAY 11/15/17 Anaerobic/Aerobic Culture, Resulted Pending 11/15/17 Anaerobic Culture Result 1 (ILDA), Resulted Pending 11/15/17 Aerobic Culture, Resulted Pending 11/15/17 Aerobic Culture Result 1 (ILDA), Resulted Pending 11/15/17 Gram Stain - Final, Resulted 11/15/17 Gram Stain Result 1 (ILDA) - Final, Resulted 11/15/17 Gram Stain Result 2 (ILDA) - Final, Resulted 11/15/17 Gram Stain Result 3 (ILDA) - Final, Resulted Medications Current Medications Sodium Chloride 1,000 ml @ 1,770 mls/hr Q34M IV Last administered on at 11:49; Start 11/15/17 at 11:15; Stop 11/15/17 at 12:15; Status DC Sodium Chloride 500 ml @ 1,000 mls/hr PRN Q30MIN PRN IV SEE COMMENTS Last administered on 11/15/17at 13:20; Start 11/15/17 at 11:15 Vancomycin HCl (Vanco Per Pharmacy) 1 each PRN DAILY PRN MC SEE COMMENTS Last administered on 11/16/17at 13:13; Start 11/15/17 at 11:15 Piperacillin Sod/ Tazobactam Sod 4.5 gm/Sodium Chloride 100 ml @ 200 mls/hr Q6HRS IV Last administered on 11/17/17at 12:27; Start 11/15/17 at 12:00 Acetaminophen (Tylenol) 1,000 mg 1X ONCE PO Last administered on 11/15/17at 11: 45; Start 11/15/17 at 11:45; Stop 11/15/17 at 11:46; Status DC Ibuprofen (Motrin) 800 mg 1X ONCE PO Last administered on 11/15/17at 11:45; Start 11/15/17 at 11:30; Stop 11/15/17 at 11:31; Status DC Vancomycin HCl 1.75 gm/Sodium Chloride 500 ml @ 250 mls/hr 1X ONCE IV Last administered on 11/15/17at 12:08; Start 11/15/17 at 12:00; Stop 11/15/17 at 13:59 ; Status DC Ondansetron HCl (Zofran) 4 mg PRN Q8HRS PRN IV NAUSEA/VOMITING; Start 11/15/17 at 13:00; Stop 11/16/17 at 08:53; Status DC Morphine Sulfate (Morphine Sulfate) 4 mg PRN Q2HR PRN IV PAIN; Start 11/15/17 at 13:00; Stop 11/16/17 at 12:59; Status DC Acetaminophen (Tylenol) 650 mg PRN Q4HRS PRN PO FEVER Last administered on 11/16at 09:20; Start 11/15/17 at 13:00; Stop 11/16/17 at 12:59; Status DC Sodium Chloride 1,000 ml @ 125 mls/hr 1X ONCE IV Last administered on at 13:00; Start 11/15/17 at 13:00; Stop 11/15/17 at 20:59; Status DC Vancomycin HCl 1.25 gm/Sodium Chloride 250 ml @ 167 mls/hr Q24H IV Last administered on 11/16/17at 13:05; Start 11/16/17 at 12:00 Vancomycin HCl (Vancomycin Trough Level) 1 each 1X ONCE MC Last administered on 11/17/17at 11:30; Start 11/17/17 at 11:30; Stop 11/17/17 at 11:31; Status DC Lactobacillus Rhamnosus (Culturelle) 1 cap BID PO Last administered on at 08:48; Start 11/15/17 at 21:00 Insulin Human Lispro (HumaLOG) 0-7 UNITS TIDWMEALS SQ ; Start 11/15/17 at 18:00 ; Stop 11/16/17 at 08:53; Status DC Dextrose (Dextrose 50%-Water Syringe) 12.5 gm PRN Q15MIN PRN IV SEE COMMENTS; Start 11/15/17 at 17:45; Stop 11/16/17 at 09:35; Status DC Ondansetron HCl (Zofran) 4 mg PRN Q6HRS PRN IV NAUSEA/VOMITING; Start 11/16/17 at 09:00 Insulin Human Lispro (HumaLOG) 0-9 UNITS TIDWMEALS SQ Last administered on 11/17at 12:33; Start 11/16/17 at 12:00 Dextrose (Dextrose 50%-Water Syringe) 12.5 gm PRN Q15MIN PRN IV SEE COMMENTS; Start 11/16/17 at 09:00 Amlodipine Besylate (Norvasc) 5 mg BID PO ; Start 11/16/17 at 09:00; Stop at 15:43; Status DC Clonidine HCl (Catapres) 0.1 mg QHS PO ; Start 11/16/17 at 21:00; Stop 11/16/17 at 21:00; Status DC Clonidine HCl (Catapres) 0.2 mg DAILY PO ; Start 11/16/17 at 09:00; Stop at 15:43; Status DC Lisinopril (Prinivil) 20 mg BID PO ; Start 11/16/17 at 09:00; Stop 11/16/17 at 15:43; Status DC Lactic Acid (Lac-Hydrin) 1 frances BID TP Last administered on 11/17/17at 09:03; Start 11/16/17 at 10:00 Non-Formulary Medication (Fluocinolone Acetonide Oil ) 20 ml 3X/WEEK OT ; Start 11/17/17 at 09:00; Status UNV Levothyroxine Sodium (Synthroid) 25 mcg DAILY07 PO Last administered on at 06:17; Start 11/16/17 at 10:30 Metformin HCl (Glucophage) 500 mg BIDWMEALS PO Last administered on 11/17/17at 08:48; Start 11/16/17 at 10:00 Labetalol HCl (Normodyne Iv Push) 10 mg PRN Q2HR PRN IVP HYPERTENSION, SEE COMMENTS; Start 11/16/17 at 09:00 Lidocaine HCl (Xylocaine 1% Pf 30ml Vial) 30 ml STK-MED ONCE .ROUTE ; Start at 09:18; Stop 11/16/17 at 10:20; Status DC Bupivacaine HCl (Sensorcaine Mpf 0.25%) 30 ml STK-MED ONCE .ROUTE ; Start at 09:18; Stop 11/16/17 at 10:20; Status DC Propofol 20 ml @ As Directed STK-MED ONCE IV ; Start 11/16/17 at 10:30; Stop at 10:31; Status DC Dexamethasone Sodium Phosphate (Decadron) 20 mg STK-MED ONCE .ROUTE ; Start at 10:30; Stop 11/16/17 at 10:31; Status DC Famotidine (Pepcid Vial) 20 mg STK-MED ONCE .ROUTE ; Start 11/16/17 at 10:30; Stop 11/16/17 at 10:31; Status DC Lidocaine HCl (Lidocaine Pf 2% Vial) 5 ml STK-MED ONCE .ROUTE ; Start 11/16/17 at 10:30; Stop 11/16/17 at 10:31; Status DC Ondansetron HCl (Zofran) 4 mg STK-MED ONCE .ROUTE ; Start 11/16/17 at 10:30; Stop 11/16/17 at 10:31; Status DC Fentanyl Citrate (Fentanyl 2ml Vial) 100 mcg STK-MED ONCE .ROUTE ; Start at 10:30; Stop 11/16/17 at 10:31; Status DC Midazolam HCl (Versed) 2 mg STK-MED ONCE .ROUTE ; Start 11/16/17 at 10:30; Stop 11/16/17 at 10:32; Status DC Sevoflurane (Ultane) 15 ml STK-MED ONCE IH ; Start 11/16/17 at 11:25; Stop 11/16 at 11:26; Status DC Multivit/ Folic Acid/Iron (Multivitamin ) 1 tab DAILY PO Last administered on 11/17/17at 08:48; Start 11/16/17 at 12:00 Ascorbic Acid (Vitamin C) 500 mg BID PO Last administered on 11/17/17at 08:48; Start 11/16/17 at 21:00 Metoprolol Tartrate (Lopressor Vial) 5 mg 1X ONCE IVP Last administered on at 13:26; Start 11/16/17 at 13:15; Stop 11/16/17 at 13:19; Status DC Metoprolol Tartrate (Lopressor) 25 mg BID PO Last administered on 11/17/17at 08: 50; Start 11/16/17 at 14:00 Metoprolol Tartrate (Lopressor Vial) 5 mg PRN Q6HRS PRN IVP TACHYCARDIA; Start 11/16/17 at 13:30 Aspirin (Ecotrin) 81 mg DAILYWBKFT PO Last administered on 11/17/17at 08:48; Start 11/16/17 at 14:00 Magnesium Sulfate/ Dextrose 100 ml @ 25 mls/hr 1X ONCE IV Last administered on 11/16/17at 17:48; Start 11/16/17 at 14:00; Stop 11/16/17 at 17:59; Status DC Amlodipine Besylate (Norvasc) 5 mg DAILY PO Last administered on 11/17/17at 08: 58; Start 11/17/17 at 09:00 Lisinopril (Prinivil) 20 mg DAILY PO Last administered on 11/17/17at 08:59; Start 11/17/17 at 09:00 Enoxaparin Sodium (Lovenox 80mg Syringe) 80 mg Q12HR SQ Last administered on at 08:49; Start 11/16/17 at 16:00 Info (Anti-Coagulation Monitoring By Pharmacy) 1 each PRN DAILY PRN MC SEE COMMENTS Last administered on 11/17/17at 08:06; Start 11/17/17 at 07:45 Active Scripts Active Reported Fluocinolone Acetonide Oil 20 Ml Drops 20 Ml OT 3X/WEEK Ammonium Lactate 385 Gm Cream..g. 385 Gm TP BID Metformin Hcl 500 Mg Tablet 1 Tab PO BID Lisinopril 20 Mg Tablet 1 Tab PO BID Levothyroxine Sodium 25 Mcg Tablet 1 Tab PO DAILY Clonidine Hcl 0.2 Mg Tablet 0.2 Mg PO DAILY Clonidine Hcl 0.1 Mg Tablet 1 Tab PO QHS Aspir 81 (Aspirin) 81 Mg Tablet. 1 Tab PO DAILY Amlodipine Besylate 5 Mg Tablet 5 Mg PO BID Vitals/I & O Vital Sign - Last 24 Hours 11/16/17 11/16/17 11/16/17 11/16/17 14:40 16:00 19:18 19:36 Temp 98.7 97.4 98.7 97.4 Pulse 100 115 Resp 18 20 B/P (MAP) 114/73 (87) 117/74 (88) Pulse Ox 94 97 O2 Delivery Room Air Room Air Room Air Room Air 11/16/17 11/16/17 11/17/17 11/17/17 20:46 23:55 03:17 07:00 Temp 98.0 97.5 98.1 98.0 97.5 98.1 Pulse 115 72 68 73 Resp 20 20 18 B/P (MAP) 117/74 114/71 (85) 117/67 (84) 142/67 (92) Pulse Ox 95 94 93 O2 Delivery Room Air Room Air Room Air 11/17/17 11/17/17 11/17/17 11/17/17 08:00 08:50 08:58 08:59 Pulse 68 68 68 B/P (MAP) 117/67 142/67 142/67 O2 Delivery Room Air 11/17/17 11:00 Temp 97.7 97.7 Pulse 71 Resp 18 B/P (MAP) 134/63 (86) Pulse Ox 98 O2 Delivery Room Air Intake and Output 8/16/18 8/16/18 8/17/18 15:00 23:00 07:00 Intake Total 500 ml 600 ml 100 ml Output Total 405 ml 227 ml 200 ml Balance 95 ml 373 ml -100 ml ERIKA REEVES III DO Nov 17, 2017 14:21
[2017-11-17] MEDS: VANCOMYCIN 1.25 GM in IV NORMAL SALINE 250ML 250 ML IV SCH (14:44)
[2017-11-17 15:00] VITALS: BP 128/65
[2017-11-17] MEDS: VANCOMYCIN PER PHARMACY MC PRN (15:00)
[2017-11-17] MEDS: NORMAL SALINE TOP SCH (15:45)
[2017-11-17 19:00] VITALS: BP 153/76
[2017-11-17] MEDS: BENZOCAINE/MENTHOL LOZENGE. PO PRN ×2 (20:43→23:59)
[2017-11-17 22:56] VITALS: BP 138/77
[2017-11-18] MEDS: PIPERACILLIN/TAZOBACTAM 4.5 GM in IV NORMAL SALINE 100ML 100 ML IV SCH ×4 (00:17→18:20)
[2017-11-18 03:00] VITALS: BP 169/85
[2017-11-18] MEDS: VANCOMYCIN 1.25 GM in IV NORMAL SALINE 250ML 250 ML IV SCH ×2 (03:02→16:27)
[2017-11-18] MEDS: BENZOCAINE/MENTHOL LOZENGE. PO PRN ×2 (05:27→20:22)
[2017-11-18] MEDS: LEVOTHYROXINE 25 MCG TABLET. PO SCH (05:28)
[2017-11-18 07:00] VITALS: BP 166/79
[2017-11-18] MEDS: VANCOMYCIN PER PHARMACY MC PRN (07:43)
[2017-11-18] MEDS: INSULIN LISPRO 300 UNITS/3 ML INSULN.PEN. SQ SCH ×3 (08:00→18:25)
--- NOTE | 2017-11-18 10:12 | PDOC ---
ORTHO PROGRESS NOTES Subjective Has been walking on his foot. No new complaints Vitals Vital Signs Date Time Temp Pulse Resp B/P (MAP) Pulse Ox O2 Delivery O2 Flow Rate FiO2 11/18/17 07:00 98.6 77 18 166/79 (108) 96 Room Air 98.6 Labs Laboratory Tests Test 11/16/17 12:02 11/16/17 16:08 11/17/17 04:00 11/17/17 08:03 Glucose (Fingerstick) 121 mg/dL (70-99) 232 mg/dL (70-99) 209 mg/dL (70-99) White Blood Count 13.2 x10^3/uL (4.0-11.0) Red Blood Count 3.17 x10^6/uL (4.30-5.70) Hemoglobin 10.4 g/dL (13.0-17.5) Hematocrit 29.2 % (39.0-53.0) Mean Corpuscular Volume 92 fL (79-100) Mean Corpuscular Hemoglobin 33 pg (25-35) Mean Corpuscular Hemoglobin Concent 36 g/dL (31-37) Red Cell Distribution Width 13.6 % (11.5-14.5) Platelet Count 195 x10^3/uL (140-400) Neutrophils (%) (Auto) 77 % (31-73) Lymphocytes (%) (Auto) 13 % (24-48) Monocytes (%) (Auto) 10 % (0-9) Eosinophils (%) (Auto) 0 % (0-3) Basophils (%) (Auto) 0 % (0-3) Neutrophils # (Auto) 10.2 x10^3uL (1.8-7.7) Lymphocytes # (Auto) 1.7 x10^3/uL (1.0-4.8) Monocytes # (Auto) 1.3 x10^3/uL (0.0-1.1) Eosinophils # (Auto) 0.0 x10^3/uL (0.0-0.7) Basophils # (Auto) 0.0 x10^3/uL (0.0-0.2) Sodium Level 140 mmol/L (136-145) Potassium Level 3.5 mmol/L (3.5-5.1) Chloride Level 107 mmol/L (98-107) Carbon Dioxide Level 25 mmol/L (21-32) Anion Gap 8 (6-14) Blood Urea Nitrogen 19 mg/dL (8-26) Creatinine 1.1 mg/dL (0.7-1.3) Estimated GFR (Cockcroft-Gault) 67.0 Glucose Level 267 mg/dL (70-99) Calcium Level 6.7 mg/dL (8.5-10.1) Magnesium Level 2.4 mg/dL (1.8-2.4) Test 11/17/17 11:25 11/17/17 12:17 11/17/17 17:24 11/17/17 21:40 Vancomycin Level Trough 6.8 mcg/mL (10.0-20.0) Vancomycin Last Dose Date 11/16/17 Vancomycin Last Dose Time 1200 Glucose (Fingerstick) 230 mg/dL (70-99) 176 mg/dL (70-99) 127 mg/dL (70-99) Test 11/18/17 07:29 Glucose (Fingerstick) 130 mg/dL (70-99) Laboratory Tests Test 11/17/17 11:25 11/17/17 12:17 11/17/17 17:24 11/17/17 21:40 Vancomycin Level Trough 6.8 mcg/mL (10.0-20.0) Vancomycin Last Dose Date 11/16/17 Vancomycin Last Dose Time 1200 Glucose (Fingerstick) 230 mg/dL (70-99) 176 mg/dL (70-99) 127 mg/dL (70-99) Test 11/18/17 07:29 Glucose (Fingerstick) 130 mg/dL (70-99) Notes He is awake and alert, sitting in a chair. The wound VAC has been changed, and has good seal. Overall condition of his soft tissues are on his left foot look improved in terms of edema and erythema. Assessment and Plan He should be nonweightbearing. I did discuss with nursing that this may be difficult and just requires patient persistence given his mental status. From my standpoint, would like to seem discharge on the wound VAC and follow up in my clinic in 2 weeks, he can be transferred whenever a bed is available and stable from a medical standpoint. SANDRA FERGUSON II, MD Nov 18, 2017 10:12
[2017-11-18] MEDS: LISINOPRIL 20 MG TABLET PO SCH (10:27)
[2017-11-18] MEDS: PRENATAL MULTIVITAMIN TABLET. PO SCH (10:27)
[2017-11-18] MEDS: ASPIRIN ENTERIC COATED 81 MG TABLET.DR. PO SCH (10:27)
[2017-11-18] MEDS: AMMONIUM LACTATE 12% TOPICAL LOTION 226GM BOTTLE. TP SCH ×2 (10:28→20:22)
[2017-11-18] MEDS: metFORMIN 500 MG TABLET PO SCH ×2 (10:28→16:27)
[2017-11-18] MEDS: METOPROLOL TART IMMED RELEASE 25 MG TABLET. PO SCH ×2 (10:28→20:23)
[2017-11-18] MEDS: amLODIPine BESYLATE 5 MG TABLET PO SCH (10:28)
[2017-11-18] MEDS: ASCORBIC ACID 500 MG TABLET PO SCH ×2 (10:28→20:23)
[2017-11-18] MEDS: LACTOBACILLUS RHAMNOSUS GG 1 CAPSULE. PO SCH ×2 (10:30→20:22)
[2017-11-18 11:00] VITALS: BP 167/83
--- NOTE | 2017-11-18 11:16 | PDOC ---
Infectious Disease Note Subjective Subjective Patient says "feeling prety goo," No complaints of pain No F/C/S/N/V/D ROS ROS per HPI, otherwise negative Vital Sign Vital Signs Vital Signs Date Time Temp Pulse Resp B/P (MAP) Pulse Ox O2 Delivery O2 Flow Rate FiO2 11/18/17 10:28 77 166/79 11/18/17 07:00 98.6 18 96 Room Air 98.6 Physical Exam PHYSICAL EXAM GENERAL: Walking back to bed, steady gait LUNGS: Clear. HEART: S1, S2 ABDOMEN: Soft, NT EXTREMITIES: Right lower extremity is unremarkable. Edema 1+ left foot, wound vac in place NEUROLOGIC: Alert, responds appropriately SKIN: without rash PIV ok Labs Lab Laboratory Tests Test 11/17/17 11:25 11/17/17 12:17 11/17/17 17:24 11/17/17 21:40 Vancomycin Level Trough 6.8 mcg/mL (10.0-20.0) Vancomycin Last Dose Date 11/16/17 Vancomycin Last Dose Time 1200 Glucose (Fingerstick) 230 mg/dL (70-99) 176 mg/dL (70-99) 127 mg/dL (70-99) Test 11/18/17 07:29 Glucose (Fingerstick) 130 mg/dL (70-99) Micro 11/15. BLOOD CULTURE Final GRAM POSITIVE COCCI IN CLUSTERS, SUGGESTIVE OF STAPH, IN 1 OF 2 BOTTLES, ONE SET DRAWN. 11/16. BLOOD CULTURE Preliminary NO GROWTH AFTER 2 DAYS Objective Assessment Extensive diabetic foot infection, left with abscess and possible osteomyelitis, , s/p I and D 11/16. GPC & GNR GPC bacteremia from 11/15. Fever - better Leukocytosis - better DM HTN Plan Plan of Care vanc and Zosyn Repeat bc from 11/16 NGTD Awaiting culture results Monitor WBC/temp and renal function closely Need PICC for intermediate antibiotics Patient seen and examined. Chart reviewed in detail. Case discussed with [employer]. Agree with above plan. FARHAT RUEDA APRN Nov 18, 2017 11:16 FAVIAN SARAH MD Nov 18, 2017 19:35
--- NOTE | 2017-11-18 11:24 | PDOC ---
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 Extensive diabetic foot infection , left with abscess and possible osteomyelitis Fever Leukocytosis DM HTN BC + g + cocci History of Present Illness History of Present Illness Pt seen and examined Doppler of foot showed mild to moderate vascular disease VSS CO pain pt resting in chair NAD Vitals Vitals Vital Signs Date Time Temp Pulse Resp B/P (MAP) Pulse Ox O2 Delivery O2 Flow Rate FiO2 11/18/17 10:28 77 166/79 11/18/17 07:00 98.6 18 96 Room Air 98.6 Physical Exam General: Alert, Cooperative, No acute distress Heart: Regular rate, Normal S1, No murmurs Lungs: Clear Abdomen: Normal bowel sounds, Soft, No tenderness Extremities: No clubbing, No cyanosis, No edema, Other Skin: No rashes, Other (post surgical debridement wound measures 4.6 cm x 2 cm x 1.3 cm with exposed bone in the base.) Labs LABS Laboratory Tests Test 11/17/17 11:25 11/17/17 12:17 11/17/17 17:24 11/17/17 21:40 Vancomycin Level Trough 6.8 mcg/mL (10.0-20.0) Vancomycin Last Dose Date 11/16/17 Vancomycin Last Dose Time 1200 Glucose (Fingerstick) 230 mg/dL (70-99) 176 mg/dL (70-99) 127 mg/dL (70-99) Test 11/18/17 07:29 Glucose (Fingerstick) 130 mg/dL (70-99) Review of Systems Review of Systems pt co foot pain no fever no N/V/D no SOB Assessment and Plan Assessmemt and Plan Assessment: Diabetic foot lesion Cognitively challenged, hypertension, hypothyroidism, diabetes, 2 toes amputated on the left. Extensive diabetic foot infection , left with abscess and possible osteomyelitis Fever Leukocytosis DM HTN BC + g + cocci Plan: wound shelter meds labs IVF PTOT glycemic control Comment Review of Relevant I have reviewed the following items billy (where applicable) has been applied. Labs Laboratory Tests Test 11/16/17 12:02 11/16/17 16:08 11/17/17 04:00 11/17/17 08:03 Glucose (Fingerstick) 121 mg/dL (70-99) 232 mg/dL (70-99) 209 mg/dL (70-99) White Blood Count 13.2 x10^3/uL (4.0-11.0) Red Blood Count 3.17 x10^6/uL (4.30-5.70) Hemoglobin 10.4 g/dL (13.0-17.5) Hematocrit 29.2 % (39.0-53.0) Mean Corpuscular Volume 92 fL (79-100) Mean Corpuscular Hemoglobin 33 pg (25-35) Mean Corpuscular Hemoglobin Concent 36 g/dL (31-37) Red Cell Distribution Width 13.6 % (11.5-14.5) Platelet Count 195 x10^3/uL (140-400) Neutrophils (%) (Auto) 77 % (31-73) Lymphocytes (%) (Auto) 13 % (24-48) Monocytes (%) (Auto) 10 % (0-9) Eosinophils (%) (Auto) 0 % (0-3) Basophils (%) (Auto) 0 % (0-3) Neutrophils # (Auto) 10.2 x10^3uL (1.8-7.7) Lymphocytes # (Auto) 1.7 x10^3/uL (1.0-4.8) Monocytes # (Auto) 1.3 x10^3/uL (0.0-1.1) Eosinophils # (Auto) 0.0 x10^3/uL (0.0-0.7) Basophils # (Auto) 0.0 x10^3/uL (0.0-0.2) Sodium Level 140 mmol/L (136-145) Potassium Level 3.5 mmol/L (3.5-5.1) Chloride Level 107 mmol/L (98-107) Carbon Dioxide Level 25 mmol/L (21-32) Anion Gap 8 (6-14) Blood Urea Nitrogen 19 mg/dL (8-26) Creatinine 1.1 mg/dL (0.7-1.3) Estimated GFR (Cockcroft-Gault) 67.0 Glucose Level 267 mg/dL (70-99) Calcium Level 6.7 mg/dL (8.5-10.1) Magnesium Level 2.4 mg/dL (1.8-2.4) Test 11/17/17 11:25 11/17/17 12:17 11/17/17 17:24 11/17/17 21:40 Vancomycin Level Trough 6.8 mcg/mL (10.0-20.0) Vancomycin Last Dose Date 11/16/17 Vancomycin Last Dose Time 1200 Glucose (Fingerstick) 230 mg/dL (70-99) 176 mg/dL (70-99) 127 mg/dL (70-99) Test 11/18/17 07:29 Glucose (Fingerstick) 130 mg/dL (70-99) Laboratory Tests Test 11/17/17 11:25 11/17/17 12:17 11/17/17 17:24 11/17/17 21:40 Vancomycin Level Trough 6.8 mcg/mL (10.0-20.0) Vancomycin Last Dose Date 11/16/17 Vancomycin Last Dose Time 1200 Glucose (Fingerstick) 230 mg/dL (70-99) 176 mg/dL (70-99) 127 mg/dL (70-99) Test 11/18/17 07:29 Glucose (Fingerstick) 130 mg/dL (70-99) Microbiology 11/16/17 Blood Culture - Preliminary, Resulted NO GROWTH AFTER 2 DAYS 11/16/17 Anaerobic/Aerobic Culture, Resulted Pending 11/16/17 Anaerobic Culture Result 1 (ILDA), Resulted Pending 11/16/17 Aerobic Culture, Resulted Pending 11/16/17 Aerobic Culture Result 1 (ILDA), Resulted Pending 11/16/17 Gram Stain - Final, Resulted 11/16/17 Gram Stain Result 1 (ILDA) - Final, Resulted 11/16/17 Gram Stain Result 2 (ILDA) - Final, Resulted 11/16/17 Gram Stain Result 3 (ILDA) - Final, Resulted Medications Current Medications Sodium Chloride 1,000 ml @ 1,770 mls/hr Q34M IV Last administered on at 11:49; Start 11/15/17 at 11:15; Stop 11/15/17 at 12:15; Status DC Sodium Chloride 500 ml @ 1,000 mls/hr PRN Q30MIN PRN IV SEE COMMENTS Last administered on 11/15/17at 13:20; Start 11/15/17 at 11:15 Vancomycin HCl (Vanco Per Pharmacy) 1 each PRN DAILY PRN MC SEE COMMENTS Last administered on 11/18/17at 07:43; Start 11/15/17 at 11:15 Piperacillin Sod/ Tazobactam Sod 4.5 gm/Sodium Chloride 100 ml @ 200 mls/hr Q6HRS IV Last administered on 11/18/17at 05:28; Start 11/15/17 at 12:00 Acetaminophen (Tylenol) 1,000 mg 1X ONCE PO Last administered on 11/15/17at 11: 45; Start 11/15/17 at 11:45; Stop 11/15/17 at 11:46; Status DC Ibuprofen (Motrin) 800 mg 1X ONCE PO Last administered on 11/15/17at 11:45; Start 11/15/17 at 11:30; Stop 11/15/17 at 11:31; Status DC Vancomycin HCl 1.75 gm/Sodium Chloride 500 ml @ 250 mls/hr 1X ONCE IV Last administered on 11/15/17at 12:08; Start 11/15/17 at 12:00; Stop 11/15/17 at 13:59 ; Status DC Ondansetron HCl (Zofran) 4 mg PRN Q8HRS PRN IV NAUSEA/VOMITING; Start 11/15/17 at 13:00; Stop 11/16/17 at 08:53; Status DC Morphine Sulfate (Morphine Sulfate) 4 mg PRN Q2HR PRN IV PAIN; Start 11/15/17 at 13:00; Stop 11/16/17 at 12:59; Status DC Acetaminophen (Tylenol) 650 mg PRN Q4HRS PRN PO FEVER Last administered on 11/16at 09:20; Start 11/15/17 at 13:00; Stop 11/16/17 at 12:59; Status DC Sodium Chloride 1,000 ml @ 125 mls/hr 1X ONCE IV Last administered on at 13:00; Start 11/15/17 at 13:00; Stop 11/15/17 at 20:59; Status DC Vancomycin HCl 1.25 gm/Sodium Chloride 250 ml @ 167 mls/hr Q24H IV Last administered on 11/17/17at 14:44; Start 11/16/17 at 12:00; Stop 11/17/17 at 17:00 ; Status DC Vancomycin HCl (Vancomycin Trough Level) 1 each 1X ONCE MC Last administered on 11/17/17at 11:30; Start 11/17/17 at 11:30; Stop 11/17/17 at 11:31; Status DC Lactobacillus Rhamnosus (Culturelle) 1 cap BID PO Last administered on at 10:30; Start 11/15/17 at 21:00 Insulin Human Lispro (HumaLOG) 0-7 UNITS TIDWMEALS SQ ; Start 11/15/17 at 18:00 ; Stop 11/16/17 at 08:53; Status DC Dextrose (Dextrose 50%-Water Syringe) 12.5 gm PRN Q15MIN PRN IV SEE COMMENTS; Start 11/15/17 at 17:45; Stop 11/16/17 at 09:35; Status DC Ondansetron HCl (Zofran) 4 mg PRN Q6HRS PRN IV NAUSEA/VOMITING; Start 11/16/17 at 09:00 Insulin Human Lispro (HumaLOG) 0-9 UNITS TIDWMEALS SQ Last administered on 11/17at 18:06; Start 11/16/17 at 12:00 Dextrose (Dextrose 50%-Water Syringe) 12.5 gm PRN Q15MIN PRN IV SEE COMMENTS; Start 11/16/17 at 09:00 Amlodipine Besylate (Norvasc) 5 mg BID PO ; Start 11/16/17 at 09:00; Stop at 15:43; Status DC Clonidine HCl (Catapres) 0.1 mg QHS PO ; Start 11/16/17 at 21:00; Stop 11/16/17 at 21:00; Status DC Clonidine HCl (Catapres) 0.2 mg DAILY PO ; Start 11/16/17 at 09:00; Stop at 15:43; Status DC Lisinopril (Prinivil) 20 mg BID PO ; Start 11/16/17 at 09:00; Stop 11/16/17 at 15:43; Status DC Lactic Acid (Lac-Hydrin) 1 frances BID TP Last administered on 11/18/17at 10:28; Start 11/16/17 at 10:00 Non-Formulary Medication (Fluocinolone Acetonide Oil ) 20 ml 3X/WEEK OT ; Start 11/17/17 at 09:00; Status UNV Levothyroxine Sodium (Synthroid) 25 mcg DAILY07 PO Last administered on at 05:28; Start 11/16/17 at 10:30 Metformin HCl (Glucophage) 500 mg BIDWMEALS PO Last administered on 11/18/17at 10:28; Start 11/16/17 at 10:00 Labetalol HCl (Normodyne Iv Push) 10 mg PRN Q2HR PRN IVP HYPERTENSION, SEE COMMENTS; Start 11/16/17 at 09:00 Lidocaine HCl (Xylocaine 1% Pf 30ml Vial) 30 ml STK-MED ONCE .ROUTE ; Start at 09:18; Stop 11/16/17 at 10:20; Status DC Bupivacaine HCl (Sensorcaine Mpf 0.25%) 30 ml STK-MED ONCE .ROUTE ; Start at 09:18; Stop 11/16/17 at 10:20; Status DC Propofol 20 ml @ As Directed STK-MED ONCE IV ; Start 11/16/17 at 10:30; Stop at 10:31; Status DC Dexamethasone Sodium Phosphate (Decadron) 20 mg STK-MED ONCE .ROUTE ; Start at 10:30; Stop 11/16/17 at 10:31; Status DC Famotidine (Pepcid Vial) 20 mg STK-MED ONCE .ROUTE ; Start 11/16/17 at 10:30; Stop 11/16/17 at 10:31; Status DC Lidocaine HCl (Lidocaine Pf 2% Vial) 5 ml STK-MED ONCE .ROUTE ; Start 11/16/17 at 10:30; Stop 11/16/17 at 10:31; Status DC Ondansetron HCl (Zofran) 4 mg STK-MED ONCE .ROUTE ; Start 11/16/17 at 10:30; Stop 11/16/17 at 10:31; Status DC Fentanyl Citrate (Fentanyl 2ml Vial) 100 mcg STK-MED ONCE .ROUTE ; Start at 10:30; Stop 11/16/17 at 10:31; Status DC Midazolam HCl (Versed) 2 mg STK-MED ONCE .ROUTE ; Start 11/16/17 at 10:30; Stop 11/16/17 at 10:32; Status DC Sevoflurane (Ultane) 15 ml STK-MED ONCE IH ; Start 11/16/17 at 11:25; Stop 11/16 at 11:26; Status DC Multivit/ Folic Acid/Iron (Multivitamin ) 1 tab DAILY PO Last administered on 11/18/17at 10:27; Start 11/16/17 at 12:00 Ascorbic Acid (Vitamin C) 500 mg BID PO Last administered on 11/18/17at 10:28; Start 11/16/17 at 21:00 Metoprolol Tartrate (Lopressor Vial) 5 mg 1X ONCE IVP Last administered on at 13:26; Start 11/16/17 at 13:15; Stop 11/16/17 at 13:19; Status DC Metoprolol Tartrate (Lopressor) 25 mg BID PO Last administered on 11/18/17at 10: 28; Start 11/16/17 at 14:00 Metoprolol Tartrate (Lopressor Vial) 5 mg PRN Q6HRS PRN IVP TACHYCARDIA; Start 11/16/17 at 13:30 Aspirin (Ecotrin) 81 mg DAILYWBKFT PO Last administered on 11/18/17at 10:27; Start 11/16/17 at 14:00 Magnesium Sulfate/ Dextrose 100 ml @ 25 mls/hr 1X ONCE IV Last administered on 11/16/17at 17:48; Start 11/16/17 at 14:00; Stop 11/16/17 at 17:59; Status DC Amlodipine Besylate (Norvasc) 5 mg DAILY PO Last administered on 11/18/17at 10: 28; Start 11/17/17 at 09:00 Lisinopril (Prinivil) 20 mg DAILY PO Last administered on 11/18/17at 10:27; Start 11/17/17 at 09:00 Enoxaparin Sodium (Lovenox 80mg Syringe) 80 mg Q12HR SQ Last administered on at 09:00; Start 11/16/17 at 16:00 Info (Anti-Coagulation Monitoring By Pharmacy) 1 each PRN DAILY PRN MC SEE COMMENTS Last administered on 11/17/17at 08:06; Start 11/17/17 at 07:45 Vancomycin HCl 1.25 gm/Sodium Chloride 250 ml @ 167 mls/hr Q12H IV Last administered on 11/18/17at 03:02; Start 11/18/17 at 03:00 Vancomycin HCl (Vancomycin Trough Level) 1 each 1X ONCE MC ; Start 11/19/17 at 02:30; Stop 11/19/17 at 02:31 Sodium Chloride (SODIUM CHLORIDE 0.9% 500ML BAG for TOPICAL) 500 ml Q24H TOP ; Start 11/17/17 at 15:45 Throat Lozenges (Cepacol Sore Throat Lozenge) 1 rosa maria PRN Q2HRS PRN PO SORE THROAT Last administered on 11/18/17at 05:27; Start 11/17/17 at 19:45 Active Scripts Active Reported Fluocinolone Acetonide Oil 20 Ml Drops 20 Ml OT 3X/WEEK Ammonium Lactate 385 Gm Cream..g. 385 Gm TP BID Metformin Hcl 500 Mg Tablet 1 Tab PO BID Lisinopril 20 Mg Tablet 1 Tab PO BID Levothyroxine Sodium 25 Mcg Tablet 1 Tab PO DAILY Clonidine Hcl 0.2 Mg Tablet 0.2 Mg PO DAILY Clonidine Hcl 0.1 Mg Tablet 1 Tab PO QHS Aspir 81 (Aspirin) 81 Mg Tablet.dr 1 Tab PO DAILY Amlodipine Besylate 5 Mg Tablet 5 Mg PO BID Vitals/I & O Vital Sign - Last 24 Hours 11/17/17 11/17/17 11/17/17 11/17/17 15:00 19:00 20:00 20:45 Temp 97.8 96.4 97.8 96.4 Pulse 73 73 73 Resp 18 20 B/P (MAP) 128/65 (86) 153/76 (101) 153/76 Pulse Ox 98 98 O2 Delivery Room Air Room Air Room Air 11/17/17 11/18/17 11/18/17 11/18/17 22:56 03:00 07:00 10:27 Temp 96.6 97.7 98.6 96.6 97.7 98.6 Pulse 66 84 77 77 Resp 20 18 18 B/P (MAP) 138/77 (97) 169/85 (113) 166/79 (108) 166/79 Pulse Ox 99 96 96 O2 Delivery Room Air Room Air Room Air 11/18/17 11/18/17 10:28 10:28 Pulse 77 77 B/P (MAP) 166/79 166/79 Intake and Output 11/17/17 11/17/17 11/18/17 15:00 23:00 07:00 Intake Total 1075 ml 405 ml Output Total 400 ml 1525 ml Balance 1075 ml 5 ml -1525 ml ERIKA REEVES III DO Nov 18, 2017 11:24
[2017-11-18] MEDS: ANTI-COAG MONITOR BY PHARMACY. MC PRN (13:51)
[2017-11-18 15:25] VITALS: BP 158/76
[2017-11-18] MEDS: NORMAL SALINE TOP SCH (15:45)
[2017-11-18 19:35] VITALS: BP 183/82
[2017-11-18 23:45] VITALS: BP 140/71
[2017-11-19] MEDS: PIPERACILLIN/TAZOBACTAM 4.5 GM in IV NORMAL SALINE 100ML 100 ML IV SCH ×5 (00:19→23:47)
[2017-11-19 02:45] LABS: BASO # 0.1 x10^3/uL (0.0-0.2); BASO % 1 % (0-3); EOS # 0.4 x10^3/uL (0.0-0.7); EOS % 4 % (0-3); HEMATOCRIT 32.7 % (39.0-53.0); HEMOGLOBIN 11.6 g/dL (13.0-17.5); LYMPH # 3.1 x10^3/uL (1.0-4.8); LYMPH % 29 % (24-48); MEAN CORPUSCULAR HEMOGLOBIN 33 pg (25-35); MEAN CORPUSCULAR HGB CONC 36 g/dL (31-37); MEAN CORPUSCULAR VOLUME 93 fL (79-100); MONO # 1.3 x10^3/uL (0.0-1.1); MONO % 12 % (0-9); NEUT # 5.9 x10^3uL (1.8-7.7); NEUT % 55 % (31-73); PLATELET COUNT 274 x10^3/uL (140-400); RED BLOOD COUNT 3.54 x10^6/uL (4.30-5.70); RED CELL DISTRIBUTION WIDTH 13.3 % (11.5-14.5); WHITE BLOOD COUNT 10.9 x10^3/uL (4.0-11.0)
[2017-11-19 03:00] VITALS: BP 133/69
[2017-11-19 03:04] LABS: CALCIUM 7.9 mg/dL (8.5-10.1); CREATININE 1.1 mg/dL (0.7-1.3); POTASSIUM 3.5 mmol/L (3.5-5.1)
[2017-11-19 03:11] LABS: VANC TR 19.3 mcg/mL (10.0-20.0)
[2017-11-19] MEDS: VANCOMYCIN 1.25 GM in IV NORMAL SALINE 250ML 250 ML IV SCH ×2 (03:36→16:57)
[2017-11-19] MEDS: VANCOMYCIN PER PHARMACY MC PRN ×2 (03:46→07:59)
[2017-11-19] MEDS: LEVOTHYROXINE 25 MCG TABLET. PO SCH (05:16)
[2017-11-19 07:19] VITALS: BP 184/88
[2017-11-19] MEDS: ANTI-COAG MONITOR BY PHARMACY. MC PRN (08:00)
[2017-11-19] MEDS: METOPROLOL TART IMMED RELEASE 25 MG TABLET. PO SCH ×2 (08:38→20:55)
[2017-11-19] MEDS: PRENATAL MULTIVITAMIN TABLET. PO SCH (08:38)
[2017-11-19] MEDS: amLODIPine BESYLATE 5 MG TABLET PO SCH (08:40)
[2017-11-19] MEDS: LACTOBACILLUS RHAMNOSUS GG 1 CAPSULE. PO SCH ×2 (08:40→20:54)
[2017-11-19] MEDS: LISINOPRIL 20 MG TABLET PO SCH (08:40)
[2017-11-19] MEDS: ASPIRIN ENTERIC COATED 81 MG TABLET.DR. PO SCH (08:40)
[2017-11-19] MEDS: ASCORBIC ACID 500 MG TABLET PO SCH ×2 (08:40→20:54)
[2017-11-19] MEDS: metFORMIN 500 MG TABLET PO SCH ×2 (08:40→16:54)
[2017-11-19] MEDS: AMMONIUM LACTATE 12% TOPICAL LOTION 226GM BOTTLE. TP SCH ×2 (08:41→20:56)
[2017-11-19] MEDS: INSULIN LISPRO 300 UNITS/3 ML INSULN.PEN. SQ SCH ×3 (08:44→17:00)
--- NOTE | 2017-11-19 09:32 | PDOC ---
Infectious Disease Note Subjective Subjective Feeling alright, hungry No complaints of pain No F/C/S/N/V/D/SOA ROS ROS per HPI otherwise negative Vital Sign Vital Signs Vital Signs Date Time Temp Pulse Resp B/P (MAP) Pulse Ox O2 Delivery O2 Flow Rate FiO2 11/19/17 08:40 76 184/88 11/19/17 07:19 98.9 20 Room Air 98.9 11/19/17 03:00 98 Physical Exam PHYSICAL EXAM GENERAL: Sitting on the side of the bed, NAD HENT: Normal conjunctivae LUNGS: Clear. HEART: S1, S2 No murmur appreciated ABDOMEN: Soft, NT EXTREMITIES: Right lower extremity is unremarkable. Edema 1+ left foot, wound vac in place NEUROLOGIC: Alert, responds appropriately SKIN: without rash. No peripheral stigmata PIV ok Labs Lab Laboratory Tests Test 11/18/17 11:41 11/18/17 17:02 11/18/17 20:36 11/19/17 02:15 Glucose (Fingerstick) 239 mg/dL (70-99) 188 mg/dL (70-99) 148 mg/dL (70-99) White Blood Count 10.9 x10^3/uL (4.0-11.0) Red Blood Count 3.54 x10^6/uL (4.30-5.70) Hemoglobin 11.6 g/dL (13.0-17.5) Hematocrit 32.7 % (39.0-53.0) Mean Corpuscular Volume 93 fL (79-100) Mean Corpuscular Hemoglobin 33 pg (25-35) Mean Corpuscular Hemoglobin Concent 36 g/dL (31-37) Red Cell Distribution Width 13.3 % (11.5-14.5) Platelet Count 274 x10^3/uL (140-400) Neutrophils (%) (Auto) 55 % (31-73) Lymphocytes (%) (Auto) 29 % (24-48) Monocytes (%) (Auto) 12 % (0-9) Eosinophils (%) (Auto) 4 % (0-3) Basophils (%) (Auto) 1 % (0-3) Neutrophils # (Auto) 5.9 x10^3uL (1.8-7.7) Lymphocytes # (Auto) 3.1 x10^3/uL (1.0-4.8) Monocytes # (Auto) 1.3 x10^3/uL (0.0-1.1) Eosinophils # (Auto) 0.4 x10^3/uL (0.0-0.7) Basophils # (Auto) 0.1 x10^3/uL (0.0-0.2) Sodium Level 140 mmol/L (136-145) Potassium Level 3.5 mmol/L (3.5-5.1) Chloride Level 105 mmol/L (98-107) Carbon Dioxide Level 29 mmol/L (21-32) Anion Gap 6 (6-14) Blood Urea Nitrogen 20 mg/dL (8-26) Creatinine 1.1 mg/dL (0.7-1.3) Estimated GFR (Cockcroft-Gault) 67.0 Glucose Level 173 mg/dL (70-99) Calcium Level 7.9 mg/dL (8.5-10.1) Vancomycin Level Trough 19.3 mcg/mL (10.0-20.0) Vancomycin Last Dose Date Vancomycin Last Dose Time 1500 Test 11/19/17 07:21 Glucose (Fingerstick) 156 mg/dL (70-99) Micro 11/15. BLOOD CULT RESULT 1 Preliminary Staphylococcus aureus 11/16. BLOOD CULTURE Preliminary NO GROWTH AFTER 2 DAYS FOOT AEROBIC RES 1 Preliminary Staphylococcus aureus AEROBIC RES 2 Preliminary Streptococcus species AEROBIC RES 3 Preliminary Mixed skin sena including multiple gram negative rods. FOOT AEROBIC RES 1 Preliminary Staphylococcus aureus 4+ AEROBIC RES 2 Preliminary Gram negative rods 4+ AEROBIC RES 3 Preliminary Gram negative rods Objective Assessment Extensive diabetic foot infection, left with abscess and possible osteomyelitis, , s/p I and D 11/16. Staph aureus, strep, GNR Staph aureus bacteremia from 11/15. -Repeat BC 816 NGTD. 2D echo neg, 11/16 Fever - better Leukocytosis - better DM HTN Plan Plan of Care vanc and Zosyn Trough 19.3 Repeat BC from 11/16 NGTD Awaiting final culture results, d/w micro Monitor WBC/temp and renal function closely Will need PICC, but hold placement for now D/w RN Patient seen and examined. Chart reviewed in detail. Case discussed with SILVICULTURIST. Agree with above plan. FARHAT RUEDA APRN Nov 19, 2017 09:32 FAVIAN SARAH MD Nov 19, 2017 21:13
[2017-11-19 10:31] VITALS: BP 175/97
--- NOTE | 2017-11-19 13:55 | PDOC ---
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 Extensive diabetic foot infection , left with abscess and possible osteomyelitis Fever Leukocytosis DM HTN BC + g + cocci History of Present Illness History of Present Illness Pt seen and examined pt cleaning himself up at bedside VSS CO pain Vitals Vitals Vital Signs Date Time Temp Pulse Resp B/P (MAP) Pulse Ox O2 Delivery O2 Flow Rate FiO2 11/19/17 10:31 98.0 72 17 175/97 (123) 96 Room Air 98.0 Physical Exam General: Alert, Cooperative, No acute distress Heart: Regular rate, Normal S1, No murmurs Lungs: Clear Abdomen: Normal bowel sounds, Soft, No tenderness Extremities: No clubbing, No cyanosis, No edema, Other Skin: No rashes, Other (post surgical debridement wound measures 4.6 cm x 2 cm x 1.3 cm with exposed bone in the base.) Labs LABS Laboratory Tests Test 11/18/17 17:02 11/18/17 20:36 11/19/17 02:15 11/19/17 07:21 Glucose (Fingerstick) 188 mg/dL (70-99) 148 mg/dL (70-99) 156 mg/dL (70-99) White Blood Count 10.9 x10^3/uL (4.0-11.0) Red Blood Count 3.54 x10^6/uL (4.30-5.70) Hemoglobin 11.6 g/dL (13.0-17.5) Hematocrit 32.7 % (39.0-53.0) Mean Corpuscular Volume 93 fL (79-100) Mean Corpuscular Hemoglobin 33 pg (25-35) Mean Corpuscular Hemoglobin Concent 36 g/dL (31-37) Red Cell Distribution Width 13.3 % (11.5-14.5) Platelet Count 274 x10^3/uL (140-400) Neutrophils (%) (Auto) 55 % (31-73) Lymphocytes (%) (Auto) 29 % (24-48) Monocytes (%) (Auto) 12 % (0-9) Eosinophils (%) (Auto) 4 % (0-3) Basophils (%) (Auto) 1 % (0-3) Neutrophils # (Auto) 5.9 x10^3uL (1.8-7.7) Lymphocytes # (Auto) 3.1 x10^3/uL (1.0-4.8) Monocytes # (Auto) 1.3 x10^3/uL (0.0-1.1) Eosinophils # (Auto) 0.4 x10^3/uL (0.0-0.7) Basophils # (Auto) 0.1 x10^3/uL (0.0-0.2) Sodium Level 140 mmol/L (136-145) Potassium Level 3.5 mmol/L (3.5-5.1) Chloride Level 105 mmol/L (98-107) Carbon Dioxide Level 29 mmol/L (21-32) Anion Gap 6 (6-14) Blood Urea Nitrogen 20 mg/dL (8-26) Creatinine 1.1 mg/dL (0.7-1.3) Estimated GFR (Cockcroft-Gault) 67.0 Glucose Level 173 mg/dL (70-99) Calcium Level 7.9 mg/dL (8.5-10.1) Vancomycin Level Trough 19.3 mcg/mL (10.0-20.0) Vancomycin Last Dose Date Vancomycin Last Dose Time 1500 Test 11/19/17 12:30 Glucose (Fingerstick) 266 mg/dL (70-99) Review of Systems Review of Systems co foot pain no co n/v/d Assessment and Plan Assessmemt and Plan Assessment: Diabetic foot lesion Cognitively challenged, hypertension, hypothyroidism, diabetes, 2 toes amputated on the left. Extensive diabetic foot infection , left with abscess and possible osteomyelitis Fever Leukocytosis DM HTN BC + g + cocci Plan: wound vac wound care Abx labs home meds awaiting PICC placement Comment Review of Relevant I have reviewed the following items billy (where applicable) has been applied. Labs Laboratory Tests Test 11/17/17 17:24 11/17/17 21:40 11/18/17 07:29 11/18/17 11:41 Glucose (Fingerstick) 176 mg/dL (70-99) 127 mg/dL (70-99) 130 mg/dL (70-99) 239 mg/dL (70-99) Test 11/18/17 17:02 11/18/17 20:36 11/19/17 02:15 11/19/17 07:21 Glucose (Fingerstick) 188 mg/dL (70-99) 148 mg/dL (70-99) 156 mg/dL (70-99) White Blood Count 10.9 x10^3/uL (4.0-11.0) Red Blood Count 3.54 x10^6/uL (4.30-5.70) Hemoglobin 11.6 g/dL (13.0-17.5) Hematocrit 32.7 % (39.0-53.0) Mean Corpuscular Volume 93 fL (79-100) Mean Corpuscular Hemoglobin 33 pg (25-35) Mean Corpuscular Hemoglobin Concent 36 g/dL (31-37) Red Cell Distribution Width 13.3 % (11.5-14.5) Platelet Count 274 x10^3/uL (140-400) Neutrophils (%) (Auto) 55 % (31-73) Lymphocytes (%) (Auto) 29 % (24-48) Monocytes (%) (Auto) 12 % (0-9) Eosinophils (%) (Auto) 4 % (0-3) Basophils (%) (Auto) 1 % (0-3) Neutrophils # (Auto) 5.9 x10^3uL (1.8-7.7) Lymphocytes # (Auto) 3.1 x10^3/uL (1.0-4.8) Monocytes # (Auto) 1.3 x10^3/uL (0.0-1.1) Eosinophils # (Auto) 0.4 x10^3/uL (0.0-0.7) Basophils # (Auto) 0.1 x10^3/uL (0.0-0.2) Sodium Level 140 mmol/L (136-145) Potassium Level 3.5 mmol/L (3.5-5.1) Chloride Level 105 mmol/L (98-107) Carbon Dioxide Level 29 mmol/L (21-32) Anion Gap 6 (6-14) Blood Urea Nitrogen 20 mg/dL (8-26) Creatinine 1.1 mg/dL (0.7-1.3) Estimated GFR (Cockcroft-Gault) 67.0 Glucose Level 173 mg/dL (70-99) Calcium Level 7.9 mg/dL (8.5-10.1) Vancomycin Level Trough 19.3 mcg/mL (10.0-20.0) Vancomycin Last Dose Date [id number] Vancomycin Last Dose Time 1500 Test 11/19/17 12:30 Glucose (Fingerstick) 266 mg/dL (70-99) Laboratory Tests Test 11/18/17 17:02 11/18/17 20:36 11/19/17 02:15 11/19/17 07:21 Glucose (Fingerstick) 188 mg/dL (70-99) 148 mg/dL (70-99) 156 mg/dL (70-99) White Blood Count 10.9 x10^3/uL (4.0-11.0) Red Blood Count 3.54 x10^6/uL (4.30-5.70) Hemoglobin 11.6 g/dL (13.0-17.5) Hematocrit 32.7 % (39.0-53.0) Mean Corpuscular Volume 93 fL (79-100) Mean Corpuscular Hemoglobin 33 pg (25-35) Mean Corpuscular Hemoglobin Concent 36 g/dL (31-37) Red Cell Distribution Width 13.3 % (11.5-14.5) Platelet Count 274 x10^3/uL (140-400) Neutrophils (%) (Auto) 55 % (31-73) Lymphocytes (%) (Auto) 29 % (24-48) Monocytes (%) (Auto) 12 % (0-9) Eosinophils (%) (Auto) 4 % (0-3) Basophils (%) (Auto) 1 % (0-3) Neutrophils # (Auto) 5.9 x10^3uL (1.8-7.7) Lymphocytes # (Auto) 3.1 x10^3/uL (1.0-4.8) Monocytes # (Auto) 1.3 x10^3/uL (0.0-1.1) Eosinophils # (Auto) 0.4 x10^3/uL (0.0-0.7) Basophils # (Auto) 0.1 x10^3/uL (0.0-0.2) Sodium Level 140 mmol/L (136-145) Potassium Level 3.5 mmol/L (3.5-5.1) Chloride Level 105 mmol/L (98-107) Carbon Dioxide Level 29 mmol/L (21-32) Anion Gap 6 (6-14) Blood Urea Nitrogen 20 mg/dL (8-26) Creatinine 1.1 mg/dL (0.7-1.3) Estimated GFR (Cockcroft-Gault) 67.0 Glucose Level 173 mg/dL (70-99) Calcium Level 7.9 mg/dL (8.5-10.1) Vancomycin Level Trough 19.3 mcg/mL (10.0-20.0) Vancomycin Last Dose Date Vancomycin Last Dose Time 1500 Test 11/19/17 12:30 Glucose (Fingerstick) 266 mg/dL (70-99) Microbiology 11/16/17 Blood Culture - Preliminary, Resulted NO GROWTH AFTER 3 DAYS 11/16/17 Anaerobic/Aerobic Culture, Resulted Pending 11/16/17 Anaerobic Culture Result 1 (ILDA), Resulted Pending 11/16/17 Aerobic Culture - Preliminary, Resulted 11/16/17 Aerobic Culture Result 1 (ILDA) - Preliminary, Resulted 11/16/17 Aerobic Culture Result 2 (ILDA) - Preliminary, Resulted 11/16/17 Gram Stain - Final, Resulted 11/16/17 Gram Stain Result 1 (ILDA) - Final, Resulted 11/16/17 Gram Stain Result 2 (IDLA) - Final, Resulted 11/16/17 Gram Stain Result 3 (ILDA) - Final, Resulted Medications Current Medications Sodium Chloride 1,000 ml @ 1,770 mls/hr Q34M IV Last administered on at 11:49; Start 11/15/17 at 11:15; Stop 11/15/17 at 12:15; Status DC Sodium Chloride 500 ml @ 1,000 mls/hr PRN Q30MIN PRN IV SEE COMMENTS Last administered on 11/15/17at 13:20; Start 11/15/17 at 11:15 Vancomycin HCl (Vanco Per Pharmacy) 1 each PRN DAILY PRN MC SEE COMMENTS Last administered on 11/19/17at 07:59; Start 11/15/17 at 11:15 Piperacillin Sod/ Tazobactam Sod 4.5 gm/Sodium Chloride 100 ml @ 200 mls/hr Q6HRS IV Last administered on 11/19/17at 13:16; Start 11/15/17 at 12:00 Acetaminophen (Tylenol) 1,000 mg 1X ONCE PO Last administered on 11/15/17at 11: 45; Start 11/15/17 at 11:45; Stop 11/15/17 at 11:46; Status DC Ibuprofen (Motrin) 800 mg 1X ONCE PO Last administered on 11/15/17at 11:45; Start 11/15/17 at 11:30; Stop 11/15/17 at 11:31; Status DC Vancomycin HCl 1.75 gm/Sodium Chloride 500 ml @ 250 mls/hr 1X ONCE IV Last administered on 11/15/17at 12:08; Start 11/15/17 at 12:00; Stop 11/15/17 at 13:59 ; Status DC Ondansetron HCl (Zofran) 4 mg PRN Q8HRS PRN IV NAUSEA/VOMITING; Start 11/15/17 at 13:00; Stop 11/16/17 at 08:53; Status DC Morphine Sulfate (Morphine Sulfate) 4 mg PRN Q2HR PRN IV PAIN; Start 11/15/17 at 13:00; Stop 11/16/17 at 12:59; Status DC Acetaminophen (Tylenol) 650 mg PRN Q4HRS PRN PO FEVER Last administered on 11/16at 09:20; Start 11/15/17 at 13:00; Stop 11/16/17 at 12:59; Status DC Sodium Chloride 1,000 ml @ 125 mls/hr 1X ONCE IV Last administered on at 13:00; Start 11/15/17 at 13:00; Stop 11/15/17 at 20:59; Status DC Vancomycin HCl 1.25 gm/Sodium Chloride 250 ml @ 167 mls/hr Q24H IV Last administered on 11/17/17at 14:44; Start 11/16/17 at 12:00; Stop 11/17/17 at 17:00 ; Status DC Vancomycin HCl (Vancomycin Trough Level) 1 each 1X ONCE MC Last administered on 11/17/17at 11:30; Start 11/17/17 at 11:30; Stop 11/17/17 at 11:31; Status DC Lactobacillus Rhamnosus (Culturelle) 1 cap BID PO Last administered on at 08:40; Start 11/15/17 at 21:00 Insulin Human Lispro (HumaLOG) 0-7 UNITS TIDWMEALS SQ ; Start 11/15/17 at 18:00 ; Stop 11/16/17 at 08:53; Status DC Dextrose (Dextrose 50%-Water Syringe) 12.5 gm PRN Q15MIN PRN IV SEE COMMENTS; Start 11/15/17 at 17:45; Stop 11/16/17 at 09:35; Status DC Ondansetron HCl (Zofran) 4 mg PRN Q6HRS PRN IV NAUSEA/VOMITING; Start 11/16/17 at 09:00 Insulin Human Lispro (HumaLOG) 0-9 UNITS TIDWMEALS SQ Last administered on 11/19at 13:25; Start 11/16/17 at 12:00 Dextrose (Dextrose 50%-Water Syringe) 12.5 gm PRN Q15MIN PRN IV SEE COMMENTS; Start 11/16/17 at 09:00 Amlodipine Besylate (Norvasc) 5 mg BID PO ; Start 11/16/17 at 09:00; Stop at 15:43; Status DC Clonidine HCl (Catapres) 0.1 mg QHS PO ; Start 11/16/17 at 21:00; Stop 11/16/17 at 21:00; Status DC Clonidine HCl (Catapres) 0.2 mg DAILY PO ; Start 11/16/17 at 09:00; Stop at 15:43; Status DC Lisinopril (Prinivil) 20 mg BID PO ; Start 11/16/17 at 09:00; Stop 11/16/17 at 15:43; Status DC Lactic Acid (Lac-Hydrin) 1 frances BID TP Last administered on 11/19/17at 08:41; Start 11/16/17 at 10:00 Non-Formulary Medication (Fluocinolone Acetonide Oil ) 20 ml 3X/WEEK OT ; Start 11/17/17 at 09:00; Status UNV Levothyroxine Sodium (Synthroid) 25 mcg DAILY07 PO Last administered on at 05:16; Start 11/16/17 at 10:30 Metformin HCl (Glucophage) 500 mg BIDWMEALS PO Last administered on 11/19/17at 08:40; Start 11/16/17 at 10:00 Labetalol HCl (Normodyne Iv Push) 10 mg PRN Q2HR PRN IVP HYPERTENSION, SEE COMMENTS; Start 11/16/17 at 09:00 Lidocaine HCl (Xylocaine 1% Pf 30ml Vial) 30 ml STK-MED ONCE .ROUTE ; Start at 09:18; Stop 11/16/17 at 10:20; Status DC Bupivacaine HCl (Sensorcaine Mpf 0.25%) 30 ml STK-MED ONCE .ROUTE ; Start at 09:18; Stop 11/16/17 at 10:20; Status DC Propofol 20 ml @ As Directed STK-MED ONCE IV ; Start 11/16/17 at 10:30; Stop at 10:31; Status DC Dexamethasone Sodium Phosphate (Decadron) 20 mg STK-MED ONCE .ROUTE ; Start at 10:30; Stop 11/16/17 at 10:31; Status DC Famotidine (Pepcid Vial) 20 mg STK-MED ONCE .ROUTE ; Start 11/16/17 at 10:30; Stop 11/16/17 at 10:31; Status DC Lidocaine HCl (Lidocaine Pf 2% Vial) 5 ml STK-MED ONCE .ROUTE ; Start 11/16/17 at 10:30; Stop 11/16/17 at 10:31; Status DC Ondansetron HCl (Zofran) 4 mg STK-MED ONCE .ROUTE ; Start 11/16/17 at 10:30; Stop 11/16/17 at 10:31; Status DC Fentanyl Citrate (Fentanyl 2ml Vial) 100 mcg STK-MED ONCE .ROUTE ; Start at 10:30; Stop 11/16/17 at 10:31; Status DC Midazolam HCl (Versed) 2 mg STK-MED ONCE .ROUTE ; Start 11/16/17 at 10:30; Stop 11/16/17 at 10:32; Status DC Sevoflurane (Ultane) 15 ml STK-MED ONCE IH ; Start 11/16/17 at 11:25; Stop 11/16 at 11:26; Status DC Multivit/ Folic Acid/Iron (Multivitamin ) 1 tab DAILY PO Last administered on 11/19/17at 08:38; Start 11/16/17 at 12:00 Ascorbic Acid (Vitamin C) 500 mg BID PO Last administered on 11/19/17at 08:40; Start 11/16/17 at 21:00 Metoprolol Tartrate (Lopressor Vial) 5 mg 1X ONCE IVP Last administered on at 13:26; Start 11/16/17 at 13:15; Stop 11/16/17 at 13:19; Status DC Metoprolol Tartrate (Lopressor) 25 mg BID PO Last administered on 11/19/17at 08: 38; Start 11/16/17 at 14:00 Metoprolol Tartrate (Lopressor Vial) 5 mg PRN Q6HRS PRN IVP TACHYCARDIA; Start 11/16/17 at 13:30 Aspirin (Ecotrin) 81 mg DAILYWBKFT PO Last administered on 11/19/17at 08:40; Start 11/16/17 at 14:00 Magnesium Sulfate/ Dextrose 100 ml @ 25 mls/hr 1X ONCE IV Last administered on 11/16/17at 17:48; Start 11/16/17 at 14:00; Stop 11/16/17 at 17:59; Status DC Amlodipine Besylate (Norvasc) 5 mg DAILY PO Last administered on 11/19/17at 08: 40; Start 11/17/17 at 09:00 Lisinopril (Prinivil) 20 mg DAILY PO Last administered on 11/19/17at 08:40; Start 11/17/17 at 09:00 Enoxaparin Sodium (Lovenox 80mg Syringe) 80 mg Q12HR SQ Last administered on at 08:42; Start 11/16/17 at 16:00 Info (Anti-Coagulation Monitoring By Pharmacy) 1 each PRN DAILY PRN MC SEE COMMENTS Last administered on 11/19/17at 08:00; Start 11/17/17 at 07:45 Vancomycin HCl 1.25 gm/Sodium Chloride 250 ml @ 167 mls/hr Q12H IV Last administered on 11/19/17at 03:36; Start 11/18/17 at 03:00 Vancomycin HCl (Vancomycin Trough Level) 1 each 1X ONCE MC Last administered on 11/19/17at 02:30; Start 11/19/17 at 02:30; Stop 11/19/17 at 02:31; Status DC Sodium Chloride (SODIUM CHLORIDE 0.9% 500ML BAG for TOPICAL) 500 ml Q24H TOP ; Start 11/17/17 at 15:45 Throat Lozenges (Cepacol Sore Throat Lozenge) 1 rosa maria PRN Q2HRS PRN PO SORE THROAT Last administered on 11/18/17at 20:22; Start 11/17/17 at 19:45 Active Scripts Active Reported Fluocinolone Acetonide Oil 20 Ml Drops 20 Ml OT 3X/WEEK Ammonium Lactate 385 Gm Cream..g. 385 Gm TP BID Metformin Hcl 500 Mg Tablet 1 Tab PO BID Lisinopril 20 Mg Tablet 1 Tab PO BID Levothyroxine Sodium 25 Mcg Tablet 1 Tab PO DAILY Clonidine Hcl 0.2 Mg Tablet 0.2 Mg PO DAILY Clonidine Hcl 0.1 Mg Tablet 1 Tab PO QHS Aspir 81 (Aspirin) 81 Mg Tablet. 1 Tab PO DAILY Amlodipine Besylate 5 Mg Tablet 5 Mg PO BID Vitals/I & O Vital Sign - Last 24 Hours 11/18/17 11/18/17 11/18/17 11/18/17 15:25 19:35 20:14 20:23 Temp 97.9 98.2 97.9 98.2 Pulse 70 77 77 Resp 16 22 B/P (MAP) 158/76 (103) 183/82 (115) 183/82 Pulse Ox 97 98 O2 Delivery Room Air Room Air Room Air 11/18/17 11/19/17 11/19/17 11/19/17 23:45 03:00 07:19 08:00 Temp 98.0 97.9 98.9 98.0 97.9 98.9 Pulse 69 80 76 Resp 22 18 20 B/P (MAP) 140/71 (94) 133/69 (90) 184/88 (120) Pulse Ox 98 98 O2 Delivery Room Air Room Air Room Air Room Air 11/19/17 11/19/17 11/19/17 11/19/17 08:38 08:40 08:40 10:31 Temp 98.0 98.0 Pulse 76 76 76 72 Resp 17 B/P (MAP) 184/88 184/88 184/88 175/97 (123) Pulse Ox 96 O2 Delivery Room Air Intake and Output 11/18/17 11/18/17 11/19/17 15:00 23:00 07:00 Intake Total 480 ml 1150 ml 200 ml Output Total 300 ml 1000 ml Balance 180 ml 150 ml 200 ml ERIKA REEVES III DO Nov 19, 2017 13:55
[2017-11-19 14:59] VITALS: BP 156/73
[2017-11-19] MEDS: NORMAL SALINE TOP SCH (15:45)
[2017-11-19 19:35] VITALS: BP 162/85
[2017-11-19 23:25] VITALS: BP 165/86
[2017-11-20] MEDS: VANCOMYCIN 1.25 GM in IV NORMAL SALINE 250ML 250 ML IV SCH ×2 (02:45→15:13)
[2017-11-20 03:15] VITALS: BP_SYST 160
[2017-11-20] MEDS: PIPERACILLIN/TAZOBACTAM 4.5 GM in IV NORMAL SALINE 100ML 100 ML IV SCH (05:32)
[2017-11-20 06:25] LABS: BASO # 0.1 x10^3/uL (0.0-0.2); BASO % 1 % (0-3); EOS # 0.4 x10^3/uL (0.0-0.7); EOS % 4 % (0-3); HEMATOCRIT 36.2 % (39.0-53.0); HEMOGLOBIN 12.6 g/dL (13.0-17.5); LYMPH # 3.3 x10^3/uL (1.0-4.8); LYMPH % 33 % (24-48); MEAN CORPUSCULAR HEMOGLOBIN 32 pg (25-35); MEAN CORPUSCULAR HGB CONC 35 g/dL (31-37); MEAN CORPUSCULAR VOLUME 92 fL (79-100); MONO # 1.1 x10^3/uL (0.0-1.1); MONO % 11 % (0-9); NEUT # 5.1 x10^3uL (1.8-7.7); NEUT % 51 % (31-73); PLATELET COUNT 300 x10^3/uL (140-400); RED BLOOD COUNT 3.94 x10^6/uL (4.30-5.70); RED CELL DISTRIBUTION WIDTH 13.4 % (11.5-14.5)
[2017-11-20 06:49] LABS: CALCIUM 8.4 mg/dL (8.5-10.1); CREATININE 1.1 mg/dL (0.7-1.3); POTASSIUM 3.6 mmol/L (3.5-5.1)
[2017-11-20] MEDS ORDERED: IODIXANOL 320 MG/ML 100 ML VIAL. ONE (07:06)
[2017-11-20] MEDS ORDERED: LIDOCAINE 1% PF 30 ML VIAL. ONE (07:06)
[2017-11-20] MEDS ORDERED: HEPARIN for ARTERIAL LINE 1,500 ML ONE (07:07)
[2017-11-20 07:42] VITALS: BP 180/79
[2017-11-20] MEDS ORDERED: fentaNYL PF VIAL 100 MCG/2 ML VIAL ONE (07:53)
[2017-11-20] MEDS ORDERED: MIDAZOLAM HCL/PF 2 MG/2 ML VIAL. ONE ×2 (07:54→08:19)
[2017-11-20] MEDS: INSULIN LISPRO 300 UNITS/3 ML INSULN.PEN. SQ SCH ×2 (08:00→12:36)
[2017-11-20] MEDS: metFORMIN 500 MG TABLET PO SCH (08:00)
[2017-11-20] MEDS ORDERED: HEPARIN for IV BOLUS 10,000 UNIT/10 ML VIAL. ONE (08:19)
--- NOTE | 2017-11-20 08:22 | PDOC ---
Infectious Disease Note Subjective Subjective Feeling alright, hungry No complaints of pain No F/C/S/N/V/D/SOA Vital Sign Vital Signs Vital Signs Date Time Temp Pulse Resp B/P (MAP) Pulse Ox O2 Delivery O2 Flow Rate FiO2 11/20/17 07:42 97.9 81 180/79 (112) 96 Room Air 97.9 11/20/17 03:15 18 Physical Exam PHYSICAL EXAM GENERAL: Sitting on the side of the bed, NAD HENT: Normal conjunctivae LUNGS: Clear. HEART: S1, S2 No murmur appreciated ABDOMEN: Soft, NT EXTREMITIES: Right lower extremity is unremarkable. Edema 1+ left foot, wound vac in place ,, wound looks clean, though deep and close to bone NEUROLOGIC: Alert, responds appropriately SKIN: without rash. No peripheral stigmata PIV ok Labs Lab Laboratory Tests Test 11/19/17 12:30 11/19/17 16:55 11/19/17 20:32 11/20/17 05:20 Glucose (Fingerstick) 266 mg/dL (70-99) 119 mg/dL (70-99) 172 mg/dL (70-99) White Blood Count 10.0 x10^3/uL (4.0-11.0) Red Blood Count 3.94 x10^6/uL (4.30-5.70) Hemoglobin 12.6 g/dL (13.0-17.5) Hematocrit 36.2 % (39.0-53.0) Mean Corpuscular Volume 92 fL (79-100) Mean Corpuscular Hemoglobin 32 pg (25-35) Mean Corpuscular Hemoglobin Concent 35 g/dL (31-37) Red Cell Distribution Width 13.4 % (11.5-14.5) Platelet Count 300 x10^3/uL (140-400) Neutrophils (%) (Auto) 51 % (31-73) Lymphocytes (%) (Auto) 33 % (24-48) Monocytes (%) (Auto) 11 % (0-9) Eosinophils (%) (Auto) 4 % (0-3) Basophils (%) (Auto) 1 % (0-3) Neutrophils # (Auto) 5.1 x10^3uL (1.8-7.7) Lymphocytes # (Auto) 3.3 x10^3/uL (1.0-4.8) Monocytes # (Auto) 1.1 x10^3/uL (0.0-1.1) Eosinophils # (Auto) 0.4 x10^3/uL (0.0-0.7) Basophils # (Auto) 0.1 x10^3/uL (0.0-0.2) Sodium Level 145 mmol/L (136-145) Potassium Level 3.6 mmol/L (3.5-5.1) Chloride Level 108 mmol/L (98-107) Carbon Dioxide Level 26 mmol/L (21-32) Anion Gap 11 (6-14) Blood Urea Nitrogen 16 mg/dL (8-26) Creatinine 1.1 mg/dL (0.7-1.3) Estimated GFR (Cockcroft-Gault) 67.0 Glucose Level 179 mg/dL (70-99) Calcium Level 8.4 mg/dL (8.5-10.1) Micro PENDING AEROBIC CULT Final Final report AEROBIC RES 1 Final Comment Methicillin - resistant Staphylococcus aureus 4+ Based on resistance to oxacillin this isolate would be resistant to all currently available beta-lactam antimicrobial agents, with the exception of the newer cephalosporins with anti-MRSA activity, such as Ceftaroline This isolate does not demonstrate inducible clindamycin resistance in vitro by D test. AEROBIC RES 2 Final Morganella morganii 4+ AEROBIC RES 3 Final Comment Enterobacter cloacae complex 3+ ANTIMICROBIAL SUSCEPTIBILITY Final Comment CONTINUED ON NEXT PAGE RUN DATE: 11/19/17 PAGE 2 RUN TIME: 1415 [facility] [address] [place] [address] Kapil Dickerson M.D., Material Rep[employer]ing Associate SPEC: [id number] PATIENT: FABIOLA ANN [id number] ( Continued) Procedure Result ANTIMICROBIAL SUSCEPTIBILITY Final (continued) S = Susceptible; I = Intermediate; R = Resistant P = Positive; N = Negative MICS are expressed in micrograms per mL Antibiotic RSLT#1 RSLT#2 RSLT#3 RSLT#4 Amoxicillin/Clavulanic Acid R>=32 R>=32 Ampicillin R>=32 Cefazolin R>=64 R>=64 Cefepime S<=0.12 Cefuroxime R =R R =R Ciprofloxacin S<=0.5 S<=0.25 S<=0.25 Clindamycin S<=0.25 Ertapenem S<=0.12 S<=0.12 Erythromycin R>=8 Gentamicin S<=0.5 S<=1 S<=1 Imipenem I =2 S<=0.25 Levofloxacin S =0.25 S<=0.12 S<=0.12 Linezolid S =2 Meropenem S<=0.25 S<=0.25 Oxacillin R>=4 Penicillin R>=0.5 Piperacillin/Tazobactam S<=4 Rifampin S<=0.5 Tetracycline S<=1 R =R R>=16 Tobramycin S<=1 S<=1 Trimethoprim/Sulfa S<=10 S<=20 S<=20 Vancomycin S =1 GRAM STAIN Final Final report GRAM STAIN RES 1 Final Comment No white blood cells seen. GRAM STAIN RES 2 Final Comment Few gram positive cocci GRAM STAIN RES 3 Final Comment CONTINUED ON NEXT PAGE RUN DATE: 11/19/17 PAGE 3 RUN TIME: 4801 [facility] [address] [place] [address] Kapil Dickerson M.D., Material Reprocessing Associate SPEC: [id number] PATIENT: SETHFABIOLA PRICE [id number] ( Continued) Procedure Result GRAM STAIN RES 3 Final (continued) Few gram negative rods. Performed at: - [facility] [address], [place], [place] [id number] Pot Liner: JEFFERSON Barone MD, Phone: [phone] Objective Assessment Extensive diabetic foot infection, left with abscess and possible osteomyelitis, , s/p I and D 11/16. Staph aureus, strep, morganella and enterobacter Staph aureus bacteremia from 11/15. -Repeat BC 11/16 NGTD. 2D echo neg, 11/16 Fever - better Leukocytosis - better DM HTN Plan Plan of Care vanc and change Zosyn to meropenem Trough 19.3 Repeat BC from 11/16 NGTD Awaiting final culture results, d/w micro Monitor WBC/temp and renal function closely Will need PICC, D/w JUSTINA MCCAULEY MD Nov 20, 2017 08:22
[2017-11-20] MEDS ORDERED: NITROGLYCERIN 200 MCG/2 ML SYRINGE FOR CATH/VASC LAB. ONE (08:45)
[2017-11-20] MEDS ORDERED: MIDAZOLAM HCL/PF 2 MG/2 ML VIAL. IV ONE (09:15)
[2017-11-20] MEDS ORDERED: LIDOCAINE 1% PF 30 ML VIAL. INJ ONE (09:15)
[2017-11-20] MEDS ORDERED: IODIXANOL 320 MG/ML 100 ML VIAL. IART ONE (09:15)
[2017-11-20] MEDS ORDERED: fentaNYL PF VIAL 100 MCG/2 ML VIAL IV ONE (09:15)
[2017-11-20] MEDS ORDERED: NITROGLYCERIN 200 MCG/2 ML SYRINGE FOR CATH/VASC LAB. IART ONE (09:15)
[2017-11-20] MEDS ORDERED: HEPARIN for IV BOLUS 10,000 UNIT/10 ML VIAL. IV ONE (09:15)
[2017-11-20 09:39] VITALS: BP 148/85
[2017-11-20 10:24] VITALS: BP 161/89
[2017-11-20] MEDS ORDERED: CLOPIDOGREL BISULFATE 75 MG TABLET PO ONE (10:30)
--- NOTE | 2017-11-20 10:56 | PDOC ---
ORTHO PROGRESS NOTES Subjective Patient states doing ok and ready to go to [facility] Post-op Day: 4 Procedure I&D left foot wound Vitals Vital Signs Date Time Temp Pulse Resp B/P (MAP) Pulse Ox O2 Delivery O2 Flow Rate FiO2 11/20/17 10:24 97.8 75 161/89 (113) 100 Room Air 97.8 11/20/17 09:39 14 2.0 Labs Laboratory Tests Test 11/18/17 11:41 11/18/17 17:02 11/18/17 20:36 11/19/17 02:15 Glucose (Fingerstick) 239 mg/dL (70-99) 188 mg/dL (70-99) 148 mg/dL (70-99) White Blood Count 10.9 x10^3/uL (4.0-11.0) Red Blood Count 3.54 x10^6/uL (4.30-5.70) Hemoglobin 11.6 g/dL (13.0-17.5) Hematocrit 32.7 % (39.0-53.0) Mean Corpuscular Volume 93 fL (79-100) Mean Corpuscular Hemoglobin 33 pg (25-35) Mean Corpuscular Hemoglobin Concent 36 g/dL (31-37) Red Cell Distribution Width 13.3 % (11.5-14.5) Platelet Count 274 x10^3/uL (140-400) Neutrophils (%) (Auto) 55 % (31-73) Lymphocytes (%) (Auto) 29 % (24-48) Monocytes (%) (Auto) 12 % (0-9) Eosinophils (%) (Auto) 4 % (0-3) Basophils (%) (Auto) 1 % (0-3) Neutrophils # (Auto) 5.9 x10^3uL (1.8-7.7) Lymphocytes # (Auto) 3.1 x10^3/uL (1.0-4.8) Monocytes # (Auto) 1.3 x10^3/uL (0.0-1.1) Eosinophils # (Auto) 0.4 x10^3/uL (0.0-0.7) Basophils # (Auto) 0.1 x10^3/uL (0.0-0.2) Sodium Level 140 mmol/L (136-145) Potassium Level 3.5 mmol/L (3.5-5.1) Chloride Level 105 mmol/L (98-107) Carbon Dioxide Level 29 mmol/L (21-32) Anion Gap 6 (6-14) Blood Urea Nitrogen 20 mg/dL (8-26) Creatinine 1.1 mg/dL (0.7-1.3) Estimated GFR (Cockcroft-Gault) 67.0 Glucose Level 173 mg/dL (70-99) Calcium Level 7.9 mg/dL (8.5-10.1) Vancomycin Level Trough 19.3 mcg/mL (10.0-20.0) Vancomycin Last Dose Date [id number] Vancomycin Last Dose Time 1500 Test 11/19/17 07:21 11/19/17 12:30 11/19/17 16:55 11/19/17 20:32 Glucose (Fingerstick) 156 mg/dL (70-99) 266 mg/dL (70-99) 119 mg/dL (70-99) 172 mg/dL (70-99) Test 11/20/17 05:20 11/20/17 10:29 White Blood Count 10.0 x10^3/uL (4.0-11.0) Red Blood Count 3.94 x10^6/uL (4.30-5.70) Hemoglobin 12.6 g/dL (13.0-17.5) Hematocrit 36.2 % (39.0-53.0) Mean Corpuscular Volume 92 fL (79-100) Mean Corpuscular Hemoglobin 32 pg (25-35) Mean Corpuscular Hemoglobin Concent 35 g/dL (31-37) Red Cell Distribution Width 13.4 % (11.5-14.5) Platelet Count 300 x10^3/uL (140-400) Neutrophils (%) (Auto) 51 % (31-73) Lymphocytes (%) (Auto) 33 % (24-48) Monocytes (%) (Auto) 11 % (0-9) Eosinophils (%) (Auto) 4 % (0-3) Basophils (%) (Auto) 1 % (0-3) Neutrophils # (Auto) 5.1 x10^3uL (1.8-7.7) Lymphocytes # (Auto) 3.3 x10^3/uL (1.0-4.8) Monocytes # (Auto) 1.1 x10^3/uL (0.0-1.1) Eosinophils # (Auto) 0.4 x10^3/uL (0.0-0.7) Basophils # (Auto) 0.1 x10^3/uL (0.0-0.2) Sodium Level 145 mmol/L (136-145) Potassium Level 3.6 mmol/L (3.5-5.1) Chloride Level 108 mmol/L (98-107) Carbon Dioxide Level 26 mmol/L (21-32) Anion Gap 11 (6-14) Blood Urea Nitrogen 16 mg/dL (8-26) Creatinine 1.1 mg/dL (0.7-1.3) Estimated GFR (Cockcroft-Gault) 67.0 Glucose Level 179 mg/dL (70-99) Calcium Level 8.4 mg/dL (8.5-10.1) Glucose (Fingerstick) 171 mg/dL (70-99) Laboratory Tests Test 11/19/17 12:30 11/19/17 16:55 11/19/17 20:32 11/20/17 05:20 Glucose (Fingerstick) 266 mg/dL (70-99) 119 mg/dL (70-99) 172 mg/dL (70-99) White Blood Count 10.0 x10^3/uL (4.0-11.0) Red Blood Count 3.94 x10^6/uL (4.30-5.70) Hemoglobin 12.6 g/dL (13.0-17.5) Hematocrit 36.2 % (39.0-53.0) Mean Corpuscular Volume 92 fL (79-100) Mean Corpuscular Hemoglobin 32 pg (25-35) Mean Corpuscular Hemoglobin Concent 35 g/dL (31-37) Red Cell Distribution Width 13.4 % (11.5-14.5) Platelet Count 300 x10^3/uL (140-400) Neutrophils (%) (Auto) 51 % (31-73) Lymphocytes (%) (Auto) 33 % (24-48) Monocytes (%) (Auto) 11 % (0-9) Eosinophils (%) (Auto) 4 % (0-3) Basophils (%) (Auto) 1 % (0-3) Neutrophils # (Auto) 5.1 x10^3uL (1.8-7.7) Lymphocytes # (Auto) 3.3 x10^3/uL (1.0-4.8) Monocytes # (Auto) 1.1 x10^3/uL (0.0-1.1) Eosinophils # (Auto) 0.4 x10^3/uL (0.0-0.7) Basophils # (Auto) 0.1 x10^3/uL (0.0-0.2) Sodium Level 145 mmol/L (136-145) Potassium Level 3.6 mmol/L (3.5-5.1) Chloride Level 108 mmol/L (98-107) Carbon Dioxide Level 26 mmol/L (21-32) Anion Gap 11 (6-14) Blood Urea Nitrogen 16 mg/dL (8-26) Creatinine 1.1 mg/dL (0.7-1.3) Estimated GFR (Cockcroft-Gault) 67.0 Glucose Level 179 mg/dL (70-99) Calcium Level 8.4 mg/dL (8.5-10.1) Test 11/20/17 10:29 Glucose (Fingerstick) 171 mg/dL (70-99) Assessment and Plan Wound vac in place patient moving foot on request ok to discharge to [facility] with wound vac follow up appt in 2 weks from [facility] saravia ROBERT J APRN Nov 20, 2017 10:56
[2017-11-20] MEDS: AMMONIUM LACTATE 12% TOPICAL LOTION 226GM BOTTLE. TP SCH (11:19)
[2017-11-20] MEDS: LEVOTHYROXINE 25 MCG TABLET. PO SCH (11:21)
[2017-11-20] MEDS: PRENATAL MULTIVITAMIN TABLET. PO SCH (11:21)
[2017-11-20] MEDS: ASPIRIN ENTERIC COATED 81 MG TABLET.DR. PO SCH (11:21)
[2017-11-20] MEDS: ASCORBIC ACID 500 MG TABLET PO SCH (11:21)
[2017-11-20] MEDS: METOPROLOL TART IMMED RELEASE 25 MG TABLET. PO SCH (11:21)
[2017-11-20] MEDS: LISINOPRIL 20 MG TABLET PO SCH (11:22)
[2017-11-20] MEDS: LACTOBACILLUS RHAMNOSUS GG 1 CAPSULE. PO SCH (11:22)
[2017-11-20] MEDS: amLODIPine BESYLATE 5 MG TABLET PO SCH (11:22)
[2017-11-20] MEDS ORDERED: MEROPENEM 500 MG in IV NORMAL SALINE 50ML 50 ML IV SCH (14:00)
--- NOTE | 2017-11-20 14:29 | CARD ---
MR#: [id number] Date of Study: 11/20/2017 Ordering Physician: ERIKA REEVES, Referring Physician: ERIKA REEVES Tech: RT Yobany (R) APPROVED REPORT Patient StatusIN-PATIENT Sailing Officer: RT Yobany (R) Procedure(s) performed: SEDTION TIME: 90 MINUTES Abdominal aortogram with bilateral femoral run-off GEOMETRY PROFESSOR mid to distal superficial femoral artery GEOMETRY PROFESSOR popliteal artery, proximal tibial trunk. HISTORY The patient is a 67 year-old male with a history of : hypertension, dyslipidemia. INDICATION FOR PROCEDURE The indication(s) include : left leg osteomyelitis with non-healing diabetic ulcer and positive duple x ultrasound for > 50% stenosis.. PROCEDURE NARRATIVE CLINICAL INFORMATION: Patient is a 67 y.o male with non-healing diabetic left foot wound s/p debridement with wound vac cristina cement. He underwent a duplex U/S that revealed greater than 50% stenosis. CONSENT: After appropriate informed consent, the patient was brought to the research laboratory specialist and placed in the supine position. Preprocedural timeout was completed and confirmed the right patient and procedure. The bila teral groins were prepped and draped in usual sterile fashion. Moderate sedation acheived with Fentan yl and Versed. The patient received 7000 units of Heparin for anticoagulation. ACCESS: Under lidocaine local anesthesia, a 5Fr introducer sheath was placed in the RCFA via the modified miguel jaya technique with a J-tipped guidewire and an 18g needle. Diagnostic angiography was then perform ed using a 5Fr Omniflush catheter with digital subtraction angiography. Next, the contralateral (LCFA ) was accessed with the aid of the Omniflush catheter and a J-tipped guidewire. The omniflush was the n exchanged for a long angled glide catheter which was then placed in the RCFA. Left lower extremity angiography with DSA was performed. Prior to removal of the right common femoral sheath, a right lowe r extremity angiography was performed. FINDINGS: AO: 190/89 AORTA: Minimal diffuse irregularities. RENAL arteries: No significant disease. RCIA: No significant disease. REIA: No significant disease. RIIA: No significant disease. RCFA: No significant disease. RSFA: Mild to moderate diffuse irregularities of up to 50%. RPOP: No significant disease. RAT: Proximally occluded. Distal vessel is seen to fill via faint collaterals RPER: Patent and is the single vessel run-off to the foot. RPT: Proximally occluded. Distal vessel is seen to fill via faint collaterals. LCIA: No significant disease. HOLDEN: No significant disease. LIIA: No significant disease. LCFA: No significant disease. LSFA: Has a proximal 40-50% stenosis, diffuse up to 70% in the mid and distal segment. LPOP: Has a critical 80% stenosis in the P3 segment. LAT: Tapers distally to a small caliber vessel with moderate diffuse disease. LPER: Proximal to mid subtotal occlusion. LPT: Dominant vessel with main arterial supply to the leg, with mild focal distal diease of up to 40- 50%. INTERVENTIONAL TECHNIQUE: GEOMETRY PROFESSOR of the SFA The right sided 5Fr sheath was exchanged for a 6Fr 55 cm Rony sheath. Next, a 0.014'' Command wire was placed in the distal PT. Next, balloon angioplasty was performed with a 4.0/40 mm Chocolate ballo on, 5.0/80 mm and a 6.0/120 inPACT drug coated balloon. INTERVENTIONAL TECHNIQUE: GEOMETRY PROFESSOR of the popliteal and TP trunk. The popliteal/TP trunk was then angioplastied with a 4.0/40 mm Chocolate balloon followed by 5.0/20 m m [place] balloon. Final post-PVI angiography revealed less than 30% residual stenosis in the SFA and popliteal segments. CLOSURE: The right groin sheath was removed and hemostasis was achieved with an Angioseal device. There were n o acute complications. Conclusion 1. Successful left SFA, popliteal and TP trunk angioplasty for non-healing diabetic foot wound. Recommendations ASA 81mg daily indefinitely Plavix 75mg daily for 4 weeks. Continue aggressive wound care. Signed by : Andres Lang, Electronically Approved : 11/20/2017 14:27:42
[2017-11-20 14:41] VITALS: BP 159/90
--- NOTE | 2017-11-20 14:51 | PDOC ---
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 Extensive diabetic foot infection , left with abscess and possible osteomyelitis Fever Leukocytosis DM HTN BC + g + cocci, MRCA, enterococci MRCA bacteremia plan: fu with ortho, id, card pt got left leg SFA angioplasty by card cont wound vasc dc to LT[facility] History of Present Illness History of Present Illness Pt seen and examined not complain foot pain, wound looks ok when vac was off, bone can be seen VSS Vitals Vitals Vital Signs Date Time Temp Pulse Resp B/P (MAP) Pulse Ox O2 Delivery O2 Flow Rate FiO2 11/20/17 14:41 97.6 80 159/90 (113) 100 Room Air 97.6 11/20/17 09:39 14 2.0 Physical Exam Physical Exam GENERAL: Sitting on the side of the bed, NAD HENT: Normal conjunctivae LUNGS: Clear. HEART: S1, S2 No murmur appreciated ABDOMEN: Soft, NT EXTREMITIES: Right lower extremity is unremarkable. Edema 1+ left foot, wound vac in place ,, wound looks clean, though deep and close to bone NEUROLOGIC: Alert, responds appropriately SKIN: without rash. No peripheral stigmata PIV ok General: Alert, Cooperative, No acute distress Heart: Regular rate, Normal S1, No murmurs Lungs: Clear Abdomen: Normal bowel sounds, Soft, No tenderness Extremities: No clubbing, No cyanosis, No edema, Other Skin: No rashes, Other (post surgical debridement wound measures 4.6 cm x 2 cm x 1.3 cm with exposed bone in the base.) Labs LABS Laboratory Tests Test 11/19/17 16:55 11/19/17 20:32 11/20/17 05:20 11/20/17 10:29 Glucose (Fingerstick) 119 mg/dL (70-99) 172 mg/dL (70-99) 171 mg/dL (70-99) White Blood Count 10.0 x10^3/uL (4.0-11.0) Red Blood Count 3.94 x10^6/uL (4.30-5.70) Hemoglobin 12.6 g/dL (13.0-17.5) Hematocrit 36.2 % (39.0-53.0) Mean Corpuscular Volume 92 fL (79-100) Mean Corpuscular Hemoglobin 32 pg (25-35) Mean Corpuscular Hemoglobin Concent 35 g/dL (31-37) Red Cell Distribution Width 13.4 % (11.5-14.5) Platelet Count 300 x10^3/uL (140-400) Neutrophils (%) (Auto) 51 % (31-73) Lymphocytes (%) (Auto) 33 % (24-48) Monocytes (%) (Auto) 11 % (0-9) Eosinophils (%) (Auto) 4 % (0-3) Basophils (%) (Auto) 1 % (0-3) Neutrophils # (Auto) 5.1 x10^3uL (1.8-7.7) Lymphocytes # (Auto) 3.3 x10^3/uL (1.0-4.8) Monocytes # (Auto) 1.1 x10^3/uL (0.0-1.1) Eosinophils # (Auto) 0.4 x10^3/uL (0.0-0.7) Basophils # (Auto) 0.1 x10^3/uL (0.0-0.2) Sodium Level 145 mmol/L (136-145) Potassium Level 3.6 mmol/L (3.5-5.1) Chloride Level 108 mmol/L (98-107) Carbon Dioxide Level 26 mmol/L (21-32) Anion Gap 11 (6-14) Blood Urea Nitrogen 16 mg/dL (8-26) Creatinine 1.1 mg/dL (0.7-1.3) Estimated GFR (Cockcroft-Gault) 67.0 Glucose Level 179 mg/dL (70-99) Calcium Level 8.4 mg/dL (8.5-10.1) Test 11/20/17 11:57 Glucose (Fingerstick) 287 mg/dL (70-99) Assessment and Plan Assessmemt and Plan Problems Medical Problems: (1) Fever Status: Acute (2) Tachycardia Status: Acute Comment Review of Relevant I have reviewed the following items billy (where applicable) has been applied. Labs Laboratory Tests Test 11/18/17 17:02 11/18/17 20:36 11/19/17 02:15 11/19/17 07:21 Glucose (Fingerstick) 188 mg/dL (70-99) 148 mg/dL (70-99) 156 mg/dL (70-99) White Blood Count 10.9 x10^3/uL (4.0-11.0) Red Blood Count 3.54 x10^6/uL (4.30-5.70) Hemoglobin 11.6 g/dL (13.0-17.5) Hematocrit 32.7 % (39.0-53.0) Mean Corpuscular Volume 93 fL (79-100) Mean Corpuscular Hemoglobin 33 pg (25-35) Mean Corpuscular Hemoglobin Concent 36 g/dL (31-37) Red Cell Distribution Width 13.3 % (11.5-14.5) Platelet Count 274 x10^3/uL (140-400) Neutrophils (%) (Auto) 55 % (31-73) Lymphocytes (%) (Auto) 29 % (24-48) Monocytes (%) (Auto) 12 % (0-9) Eosinophils (%) (Auto) 4 % (0-3) Basophils (%) (Auto) 1 % (0-3) Neutrophils # (Auto) 5.9 x10^3uL (1.8-7.7) Lymphocytes # (Auto) 3.1 x10^3/uL (1.0-4.8) Monocytes # (Auto) 1.3 x10^3/uL (0.0-1.1) Eosinophils # (Auto) 0.4 x10^3/uL (0.0-0.7) Basophils # (Auto) 0.1 x10^3/uL (0.0-0.2) Sodium Level 140 mmol/L (136-145) Potassium Level 3.5 mmol/L (3.5-5.1) Chloride Level 105 mmol/L (98-107) Carbon Dioxide Level 29 mmol/L (21-32) Anion Gap 6 (6-14) Blood Urea Nitrogen 20 mg/dL (8-26) Creatinine 1.1 mg/dL (0.7-1.3) Estimated GFR (Cockcroft-Gault) 67.0 Glucose Level 173 mg/dL (70-99) Calcium Level 7.9 mg/dL (8.5-10.1) Vancomycin Level Trough 19.3 mcg/mL (10.0-20.0) Vancomycin Last Dose Date [id number] Vancomycin Last Dose Time 1500 Test 11/19/17 12:30 11/19/17 16:55 11/19/17 20:32 11/20/17 05:20 Glucose (Fingerstick) 266 mg/dL (70-99) 119 mg/dL (70-99) 172 mg/dL (70-99) White Blood Count 10.0 x10^3/uL (4.0-11.0) Red Blood Count 3.94 x10^6/uL (4.30-5.70) Hemoglobin 12.6 g/dL (13.0-17.5) Hematocrit 36.2 % (39.0-53.0) Mean Corpuscular Volume 92 fL (79-100) Mean Corpuscular Hemoglobin 32 pg (25-35) Mean Corpuscular Hemoglobin Concent 35 g/dL (31-37) Red Cell Distribution Width 13.4 % (11.5-14.5) Platelet Count 300 x10^3/uL (140-400) Neutrophils (%) (Auto) 51 % (31-73) Lymphocytes (%) (Auto) 33 % (24-48) Monocytes (%) (Auto) 11 % (0-9) Eosinophils (%) (Auto) 4 % (0-3) Basophils (%) (Auto) 1 % (0-3) Neutrophils # (Auto) 5.1 x10^3uL (1.8-7.7) Lymphocytes # (Auto) 3.3 x10^3/uL (1.0-4.8) Monocytes # (Auto) 1.1 x10^3/uL (0.0-1.1) Eosinophils # (Auto) 0.4 x10^3/uL (0.0-0.7) Basophils # (Auto) 0.1 x10^3/uL (0.0-0.2) Sodium Level 145 mmol/L (136-145) Potassium Level 3.6 mmol/L (3.5-5.1) Chloride Level 108 mmol/L (98-107) Carbon Dioxide Level 26 mmol/L (21-32) Anion Gap 11 (6-14) Blood Urea Nitrogen 16 mg/dL (8-26) Creatinine 1.1 mg/dL (0.7-1.3) Estimated GFR (Cockcroft-Gault) 67.0 Glucose Level 179 mg/dL (70-99) Calcium Level 8.4 mg/dL (8.5-10.1) Test 11/20/17 10:29 11/20/17 11:57 Glucose (Fingerstick) 171 mg/dL (70-99) 287 mg/dL (70-99) Laboratory Tests Test 11/19/17 16:55 11/19/17 20:32 11/20/17 05:20 11/20/17 10:29 Glucose (Fingerstick) 119 mg/dL (70-99) 172 mg/dL (70-99) 171 mg/dL (70-99) White Blood Count 10.0 x10^3/uL (4.0-11.0) Red Blood Count 3.94 x10^6/uL (4.30-5.70) Hemoglobin 12.6 g/dL (13.0-17.5) Hematocrit 36.2 % (39.0-53.0) Mean Corpuscular Volume 92 fL (79-100) Mean Corpuscular Hemoglobin 32 pg (25-35) Mean Corpuscular Hemoglobin Concent 35 g/dL (31-37) Red Cell Distribution Width 13.4 % (11.5-14.5) Platelet Count 300 x10^3/uL (140-400) Neutrophils (%) (Auto) 51 % (31-73) Lymphocytes (%) (Auto) 33 % (24-48) Monocytes (%) (Auto) 11 % (0-9) Eosinophils (%) (Auto) 4 % (0-3) Basophils (%) (Auto) 1 % (0-3) Neutrophils # (Auto) 5.1 x10^3uL (1.8-7.7) Lymphocytes # (Auto) 3.3 x10^3/uL (1.0-4.8) Monocytes # (Auto) 1.1 x10^3/uL (0.0-1.1) Eosinophils # (Auto) 0.4 x10^3/uL (0.0-0.7) Basophils # (Auto) 0.1 x10^3/uL (0.0-0.2) Sodium Level 145 mmol/L (136-145) Potassium Level 3.6 mmol/L (3.5-5.1) Chloride Level 108 mmol/L (98-107) Carbon Dioxide Level 26 mmol/L (21-32) Anion Gap 11 (6-14) Blood Urea Nitrogen 16 mg/dL (8-26) Creatinine 1.1 mg/dL (0.7-1.3) Estimated GFR (Cockcroft-Gault) 67.0 Glucose Level 179 mg/dL (70-99) Calcium Level 8.4 mg/dL (8.5-10.1) Test 11/20/17 11:57 Glucose (Fingerstick) 287 mg/dL (70-99) Microbiology 11/16/17 Blood Culture - Preliminary, Resulted NO GROWTH AFTER 4 DAYS 11/16/17 Anaerobic/Aerobic Culture, Resulted Pending 11/16/17 Anaerobic Culture Result 1 (ILDA), Resulted Pending 11/16/17 Aerobic Culture - Final, Resulted 11/16/17 Aerobic Culture Result 1 (ILDA) - Final, Resulted 11/16/17 Aerobic Culture Result 2 (ILDA) - Final, Resulted 11/16/17 Aerobic Culture Result 3 (ILDA) - Final, Resulted 11/16/17 Gram Stain - Final, Resulted 11/16/17 Gram Stain Result 1 (ILDA) - Final, Resulted 11/16/17 Gram Stain Result 2 (ILDA) - Final, Resulted 11/16/17 Gram Stain Result 3 (ILDA) - Final, Resulted Medications Current Medications Sodium Chloride 1,000 ml @ 1,770 mls/hr Q34M IV Last administered on at 11:49; Start 11/15/17 at 11:15; Stop 11/15/17 at 12:15; Status DC Sodium Chloride 500 ml @ 1,000 mls/hr PRN Q30MIN PRN IV SEE COMMENTS Last administered on 11/15/17at 13:20; Start 11/15/17 at 11:15 Vancomycin HCl (Vanco Per Pharmacy) 1 each PRN DAILY PRN MC SEE COMMENTS Last administered on 11/19/17at 07:59; Start 11/15/17 at 11:15 Piperacillin Sod/ Tazobactam Sod 4.5 gm/Sodium Chloride 100 ml @ 200 mls/hr Q6HRS IV Last administered on 11/20/17at 05:32; Start 11/15/17 at 12:00; Stop 8 /20/18 at 10:22; Status DC Acetaminophen (Tylenol) 1,000 mg 1X ONCE PO Last administered on 11/15/17at 11: 45; Start 11/15/17 at 11:45; Stop 11/15/17 at 11:46; Status DC Ibuprofen (Motrin) 800 mg 1X ONCE PO Last administered on 11/15/17at 11:45; Start 11/15/17 at 11:30; Stop 11/15/17 at 11:31; Status DC Vancomycin HCl 1.75 gm/Sodium Chloride 500 ml @ 250 mls/hr 1X ONCE IV Last administered on 11/15/17at 12:08; Start 11/15/17 at 12:00; Stop 11/15/17 at 13:59 ; Status DC Ondansetron HCl (Zofran) 4 mg PRN Q8HRS PRN IV NAUSEA/VOMITING; Start 11/15/17 at 13:00; Stop 11/16/17 at 08:53; Status DC Morphine Sulfate (Morphine Sulfate) 4 mg PRN Q2HR PRN IV PAIN; Start 11/15/17 at 13:00; Stop 11/16/17 at 12:59; Status DC Acetaminophen (Tylenol) 650 mg PRN Q4HRS PRN PO FEVER Last administered on 11/16at 09:20; Start 11/15/17 at 13:00; Stop 11/16/17 at 12:59; Status DC Sodium Chloride 1,000 ml @ 125 mls/hr 1X ONCE IV Last administered on at 13:00; Start 11/15/17 at 13:00; Stop 11/15/17 at 20:59; Status DC Vancomycin HCl 1.25 gm/Sodium Chloride 250 ml @ 167 mls/hr Q24H IV Last administered on 11/17/17at 14:44; Start 11/16/17 at 12:00; Stop 11/17/17 at 17:00 ; Status DC Vancomycin HCl (Vancomycin Trough Level) 1 each 1X ONCE MC Last administered on 11/17/17at 11:30; Start 11/17/17 at 11:30; Stop 11/17/17 at 11:31; Status DC Lactobacillus Rhamnosus (Culturelle) 1 cap BID PO Last administered on at 11:22; Start 11/15/17 at 21:00 Insulin Human Lispro (HumaLOG) 0-7 UNITS TIDWMEALS SQ ; Start 11/15/17 at 18:00 ; Stop 11/16/17 at 08:53; Status DC Dextrose (Dextrose 50%-Water Syringe) 12.5 gm PRN Q15MIN PRN IV SEE COMMENTS; Start 11/15/17 at 17:45; Stop 11/16/17 at 09:35; Status DC Ondansetron HCl (Zofran) 4 mg PRN Q6HRS PRN IV NAUSEA/VOMITING; Start 11/16/17 at 09:00 Insulin Human Lispro (HumaLOG) 0-9 UNITS TIDWMEALS SQ Last administered on 11/20at 12:36; Start 11/16/17 at 12:00 Dextrose (Dextrose 50%-Water Syringe) 12.5 gm PRN Q15MIN PRN IV SEE COMMENTS; Start 11/16/17 at 09:00 Amlodipine Besylate (Norvasc) 5 mg BID PO ; Start 11/16/17 at 09:00; Stop at 15:43; Status DC Clonidine HCl (Catapres) 0.1 mg QHS PO ; Start 11/16/17 at 21:00; Stop 11/16/17 at 21:00; Status DC Clonidine HCl (Catapres) 0.2 mg DAILY PO ; Start 11/16/17 at 09:00; Stop at 15:43; Status DC Lisinopril (Prinivil) 20 mg BID PO ; Start 11/16/17 at 09:00; Stop 11/16/17 at 15:43; Status DC Lactic Acid (Lac-Hydrin) 1 frances BID TP Last administered on 11/20/17at 11:19; Start 11/16/17 at 10:00 Non-Formulary Medication (Fluocinolone Acetonide Oil ) 20 ml 3X/WEEK OT ; Start 11/17/17 at 09:00; Status UNV Levothyroxine Sodium (Synthroid) 25 mcg DAILY07 PO Last administered on at 11:21; Start 11/16/17 at 10:30 Metformin HCl (Glucophage) 500 mg BIDWMEALS PO Last administered on 11/19/17at 16:54; Start 11/16/17 at 10:00; Stop 11/20/17 at 14:29; Status DC Labetalol HCl (Normodyne Iv Push) 10 mg PRN Q2HR PRN IVP HYPERTENSION, SEE COMMENTS; Start 11/16/17 at 09:00 Lidocaine HCl (Xylocaine 1% Pf 30ml Vial) 30 ml STK-MED ONCE .ROUTE ; Start at 09:18; Stop 11/16/17 at 10:20; Status DC Bupivacaine HCl (Sensorcaine Mpf 0.25%) 30 ml STK-MED ONCE .ROUTE ; Start at 09:18; Stop 11/16/17 at 10:20; Status DC Propofol 20 ml @ As Directed STK-MED ONCE IV ; Start 11/16/17 at 10:30; Stop at 10:31; Status DC Dexamethasone Sodium Phosphate (Decadron) 20 mg STK-MED ONCE .ROUTE ; Start at 10:30; Stop 11/16/17 at 10:31; Status DC Famotidine (Pepcid Vial) 20 mg STK-MED ONCE .ROUTE ; Start 11/16/17 at 10:30; Stop 11/16/17 at 10:31; Status DC Lidocaine HCl (Lidocaine Pf 2% Vial) 5 ml STK-MED ONCE .ROUTE ; Start 11/16/17 at 10:30; Stop 11/16/17 at 10:31; Status DC Ondansetron HCl (Zofran) 4 mg STK-MED ONCE .ROUTE ; Start 11/16/17 at 10:30; Stop 11/16/17 at 10:31; Status DC Fentanyl Citrate (Fentanyl 2ml Vial) 100 mcg STK-MED ONCE .ROUTE ; Start at 10:30; Stop 11/16/17 at 10:31; Status DC Midazolam HCl (Versed) 2 mg STK-MED ONCE .ROUTE ; Start 11/16/17 at 10:30; Stop 11/16/17 at 10:32; Status DC Sevoflurane (Ultane) 15 ml STK-MED ONCE IH ; Start 11/16/17 at 11:25; Stop 11/16 at 11:26; Status DC Multivit/ Folic Acid/Iron (Multivitamin ) 1 tab DAILY PO Last administered on 11/20/17at 11:21; Start 11/16/17 at 12:00 Ascorbic Acid (Vitamin C) 500 mg BID PO Last administered on 11/20/17 11:21; Start 11/16/17 at 21:00 Metoprolol Tartrate (Lopressor Vial) 5 mg 1X ONCE IVP Last administered on at 13:26; Start 11/16/17 at 13:15; Stop 11/16/17 at 13:19; Status DC Metoprolol Tartrate (Lopressor) 25 mg BID PO Last administered on 11/20/17 11: 21; Start 11/16/17 at 14:00 Metoprolol Tartrate (Lopressor Vial) 5 mg PRN Q6HRS PRN IVP TACHYCARDIA; Start 11/16/17 at 13:30 Aspirin (Ecotrin) 81 mg DAILYWBKFT PO Last administered on 11/20/17 11:21; Start 11/16/17 at 14:00 Magnesium Sulfate/ Dextrose 100 ml @ 25 mls/hr 1X ONCE IV Last administered on 11/16/17at 17:48; Start 11/16/17 at 14:00; Stop 11/16/17 at 17:59; Status DC Amlodipine Besylate (Norvasc) 5 mg DAILY PO Last administered on 11/20/17 11: 22; Start 11/17/17 at 09:00 Lisinopril (Prinivil) 20 mg DAILY PO Last administered on 11/20/17 11:22; Start 11/17/17 at 09:00 Enoxaparin Sodium (Lovenox 80mg Syringe) 80 mg Q12HR SQ Last administered on at 20:56; Start 11/16/17 at 16:00 Info (Anti-Coagulation Monitoring By Pharmacy) 1 each PRN DAILY PRN MC SEE COMMENTS Last administered on 11/19/17at 08:00; Start 11/17/17 at 07:45 Vancomycin HCl 1.25 gm/Sodium Chloride 250 ml @ 167 mls/hr Q12H IV Last administered on 11/20/17at 02:45; Start 11/18/17 at 03:00 Vancomycin HCl (Vancomycin Trough Level) 1 each 1X ONCE MC Last administered on 11/19/17at 02:30; Start 11/19/17 at 02:30; Stop 11/19/17 at 02:31; Status DC Sodium Chloride (SODIUM CHLORIDE 0.9% 500ML BAG for TOPICAL) 500 ml Q24H TOP ; Start 11/17/17 at 15:45 Throat Lozenges (Cepacol Sore Throat Lozenge) 1 rosa maria PRN Q2HRS PRN PO SORE THROAT Last administered on 11/18/17at 20:22; Start 11/17/17 at 19:45 Iodixanol (Visipaque 320) 100 ml STK-MED ONCE .ROUTE ; Start 11/20/17 at 07:06; Stop 11/20/17 at 07:08; Status DC Lidocaine HCl (Xylocaine 1% Pf 30ml Vial) 30 ml STK-MED ONCE .ROUTE ; Start at 07:06; Stop 11/20/17 at 07:08; Status DC Heparin Sodium/ Sodium Chloride 1,500 ml @ As Directed STK-MED ONCE .ROUTE ; Start 11/20/17 at 07:07; Stop 11/20/17 at 07:08; Status DC Fentanyl Citrate (Fentanyl 2ml Vial) 100 mcg STK-MED ONCE .ROUTE ; Start at 07:53; Stop 11/20/17 at 07:55; Status DC Midazolam HCl (Versed) 2 mg STK-MED ONCE .ROUTE ; Start 11/20/17 at 07:54; Stop 11/20/17 at 07:55; Status DC Midazolam HCl (Versed) 2 mg STK-MED ONCE .ROUTE ; Start 11/20/17 at 08:19; Stop 11/20/17 at 08:20; Status DC Heparin Sodium (Porcine) (Heparin Sodium) 10,000 unit STK-MED ONCE .ROUTE ; Start 11/20/17 at 08:19; Stop 11/20/17 at 08:20; Status DC Nitroglycerin (Nitroglycerin) 200 mcg STK-MED ONCE .ROUTE ; Start 11/20/17 at 08 :45; Stop 11/20/17 at 08:46; Status DC Nitroglycerin (Nitroglycerin) 400 mcg 1X ONCE IART Last administered on at 09:32; Start 11/20/17 at 09:15; Stop 11/20/17 at 09:26; Status DC Heparin Sodium/ Sodium Chloride (HEPARIN for ARTERIAL LINE FLUSH) 1,000 unit 1X ONCE IART Last administered on 11/20/17 09:31; Start 11/20/17 at 09:15; Stop 11/20/17 at 09:26; Status DC Heparin Sodium/ Sodium Chloride (HEPARIN for ARTERIAL LINE FLUSH) 1,000 unit 1X ONCE IART Last administered on 11/20/17 09:31; Start 11/20/17 at 09:15; Stop 11/20/17 at 09:26; Status DC Midazolam HCl (Versed) 3 mg 1X ONCE IV Last administered on 11/20/17 09:33; Start 11/20/17 at 09:15; Stop 11/20/17 at 09:26; Status DC Fentanyl Citrate (Fentanyl 2ml Vial) 100 mcg 1X ONCE IV Last administered on 09:33; Start 11/20/17 at 09:15; Stop 11/20/17 at 09:26; Status DC Iodixanol (Visipaque 320) 100 ml 1X ONCE IART Last administered on 11/20/17 09:31; Start 11/20/17 at 09:15; Stop 11/20/17 at 09:26; Status DC Heparin Sodium (Porcine) (Heparin Sodium) 7,000 unit 1X ONCE IV Last administered on 11/20/17 09:32; Start 11/20/17 at 09:15; Stop 11/20/17 at 09:26 ; Status DC Lidocaine HCl (Xylocaine 1% Pf 30ml Vial) 10 ml 1X ONCE INJ Last administered on 11/20/17 09:31; Start 11/20/17 at 09:15; Stop 11/20/17 at 09:26; Status DC Clopidogrel Bisulfate (Plavix) 600 mg 1X ONCE PO Last administered on at 11:20; Start 11/20/17 at 10:30; Stop 11/20/17 at 10:31; Status DC Clopidogrel Bisulfate (Plavix) 75 mg DAILYWBKFT PO ; Start 11/21/17 at 08:00 Meropenem 500 mg/ Sodium Chloride 50 ml @ 100 mls/hr Q8HRS IV Last administered on 11/20/17at 14:20; Start 11/20/17 at 14:00 Active Scripts Active Reported Fluocinolone Acetonide Oil 20 Ml Drops 20 Ml OT 3X/WEEK Ammonium Lactate 385 Gm Cream..g. 385 Gm TP BID Metformin Hcl 500 Mg Tablet 1 Tab PO BID Lisinopril 20 Mg Tablet 1 Tab PO BID Levothyroxine Sodium 25 Mcg Tablet 1 Tab PO DAILY Clonidine Hcl 0.2 Mg Tablet 0.2 Mg PO DAILY Clonidine Hcl 0.1 Mg Tablet 1 Tab PO QHS Aspir 81 (Aspirin) 81 Mg Tablet.dr 1 Tab PO DAILY Amlodipine Besylate 5 Mg Tablet 5 Mg PO BID Vitals/I & O Vital Sign - Last 24 Hours 11/19/17 11/19/17 11/19/17 11/19/17 14:59 19:35 19:47 20:55 Temp 97.9 97.7 97.9 97.7 Pulse 75 76 83 Resp 18 18 B/P (MAP) 156/73 (100) 162/85 (110) 162/85 Pulse Ox 97 97 O2 Delivery Room Air Room Air Room Air 11/19/17 11/20/17 11/20/17 11/20/17 23:25 03:15 07:42 08:00 Temp 98.3 98.0 97.9 98.3 98.0 97.9 Pulse 78 78 81 Resp 18 B/P (MAP) 165/86 (112) 160/ 180/79 (112) Pulse Ox 97 96 96 O2 Delivery Room Air Room Air Room Air Room Air 11/20/17 11/20/17 11/20/17 11/20/17 09:33 09:39 10:24 11:21 Temp 97.8 97.8 Pulse 75 75 75 Resp 14 14 B/P (MAP) 161/89 (113) 161/89 Pulse Ox 98 98 100 O2 Delivery Nasal Cannula Nasal Cannula Room Air O2 Flow Rate 2.0 2.0 11/20/17 11/20/17 11/20/17 11/20/17 11:22 11:22 11:55 14:41 Temp 97.6 97.6 Pulse 75 75 80 B/P (MAP) 161/89 161/89 159/90 (113) Pulse Ox 100 100 O2 Delivery Room Air Room Air Intake and Output 11/19/17 11/19/17 11/20/17 15:01 23:01 07:01 Intake Total 218 ml Balance 218 ml CONRADO FUNK MD Nov 20, 2017 14:51
--- NOTE | 2017-11-20 14:54 | PDOC3 ---
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 Extensive diabetic foot infection , left with abscess and possible osteomyelitis Fever Leukocytosis DM HTN BC + g + cocci, MRCA, enterococci MRCA bacteremia left leg PAD s/p SFA angioplasty Final Diagnosis CONSULTS ortho card id Brief Hospital Course Mr. Saeed is a 67 old M, from [facility] ,for left foot ulcer, which is likely osteomyelitis, for which he got i and d by ortho and wound vac on. + multiple bacteria grown in the wound including MRSA, also has MRSA bacteremia with last neg bcx 11/16. will get PICC line to cont iv abx for 4-6 weeks. today, got SFA angioplasty with card, cont plavix, asa. dvt ppx wound care. 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 Disposition [facility] CONDITION AT DISCHARGE: Improved Scheduled Amlodipine Besylate (Amlodipine Besylate), 5 MG PO BID, (Reported) Ammonium Lactate (Ammonium Lactate), 385 GM TP BID, (Reported) Aspirin (Aspir 81), 1 TAB PO DAILY, (Reported) Clonidine Hcl (Clonidine Hcl), 1 TAB PO QHS, (Reported) Clonidine Hcl (Clonidine Hcl), 0.2 MG PO DAILY, (Reported) Fluocinolone Acetonide Oil (Fluocinolone Acetonide Oil), 20 ML OT 3X/WEEK, ( Reported) Levothyroxine Sodium (Levothyroxine Sodium), 1 TAB PO DAILY, (Reported) Lisinopril (Lisinopril), 1 TAB PO BID, (Reported) Metformin Hcl (Metformin Hcl), 1 TAB PO BID, (Reported) CONRADO FUNK MD Nov 20, 2017 14:54
--- NOTE | 2017-11-20 15:16 | RAD ---
Exam: Fluoroscopic and ultrasound guided right percutaneous inserted venous catheter placement 11/20/2017 3:11 PM .Indication: Long-term iv antibiotics Technique: Informed oral and written consent were obtained. The right upper extremity was prepped and draped using sterile barrier technique. All elements of maximal sterile barrier technique including the use of a cap, mask, sterile gown, sterile gloves, large sterile sheet, appropriate hand hygiene, and 2% chlorhexidine for cutaneous antisepsis (or acceptable alternative antiseptic per current guidelines) were followed for this procedure.. Real-time ultrasound demonstrated a patent right basilic vein which was prepped and draped in usual sterile fashion. 1% lidocaine used for local anesthesia. Using real-time ultrasound guidance the access needle percutaneously punctured the selected right basilic vein. Reference ultrasound images were saved to the medical record. A guidewire was advanced through the needle to the cavoatrial junction, and a peel-away sheath placed. The catheter was cut to length and inserted through the peel-away sheath such that its tip was in the upper arm. The wire and sheath were removed, and the catheter secured in place, and a sterile dressing was applied. Catheter was found to flush and aspirate normally. No immediate complications are identified. FLUORO TIME: FLUORO TIME: 0.1 MIN DOSE AREA PRODUCT: 0.1 Gycm2 Impression: Ultrasound and fluoroscopically guided placement of a right upper extremity Midline
[2017-11-20] MEDS: NORMAL SALINE TOP SCH (15:51)
[2017-11-20] MEDS ORDERED: ENOXAPARIN 40 MG/0.4 ML SYRINGE. SQ SCH (21:00)
[2017-11-21] MEDS ORDERED: CLOPIDOGREL BISULFATE 75 MG TABLET PO SCH (08:00)
== END 2017-11-20 16:22 | DRG 853 ==
LOC: ER 10:56 → 4 NORTH 12:14 → 2 NORTH 11-16 14:28
PROVIDERS: ADMIT Internal Medicine; ATTEND Internal Medicine
PROC: 0QBP0ZX Excision of Left Metatarsal, Open Approach, Diagnostic (ICD-10-PCS; 2017-11-16)
PROC: 0QBP0ZZ Excision of Left Metatarsal, Open Approach (ICD-10-PCS; principal; 2017-11-16 11:00)
PROC: 047L3Z1 Dilation of Left Femoral Artery using Drug-Coated Balloon, Percutaneous Approach (ICD-10-PCS; 2017-11-20)
PROC: 047N3Z1 Dilation of Left Popliteal Artery using Drug-Coated Balloon, Percutaneous Approach (ICD-10-PCS; 2017-11-20)
PROC: 047S3Z1 Dilation of Left Posterior Tibial Artery using Drug-Coated Balloon, Percutaneous Approach (ICD-10-PCS; 2017-11-20)
PROC: 02HV33Z Insertion of Infusion Device into Superior Vena Cava, Percutaneous Approach (ICD-10-PCS; 2017-11-20)
PROC: B5181ZA Fluoroscopy of Superior Vena Cava using Low Osmolar Contrast, Guidance (ICD-10-PCS; 2017-11-20)
PROC: B548ZZA Ultrasonography of Superior Vena Cava, Guidance (ICD-10-PCS; 2017-11-20)
PROC: B4001ZZ Plain Radiography of Abdominal Aorta using Low Osmolar Contrast (ICD-10-PCS; 2017-11-20)
DX: A41.02 Sepsis due to Methicillin resistant Staphylococcus aureus (principal); R65.21 Severe sepsis with septic shock; L02.612 Cutaneous abscess of left foot; L03.116 Cellulitis of left lower limb; M86.172 Other acute osteomyelitis, left ankle and foot; I10 Essential (primary) hypertension; E03.9 Hypothyroidism, unspecified; E10.621 Type 1 diabetes mellitus with foot ulcer; I48.91 Unspecified atrial fibrillation; E78.5 Hyperlipidemia, unspecified; E10.42 Type 1 diabetes mellitus with diabetic polyneuropathy; M19.90 Unspecified osteoarthritis, unspecified site; E83.42 Hypomagnesemia; E10.628 Type 1 diabetes mellitus with other skin complications; L97.524 Non-pressure chronic ulcer of other part of left foot with necrosis of bone; E10.69 Type 1 diabetes mellitus with other specified complication; B95.61 Methicillin susceptible Staphylococcus aureus infection as the cause of diseases classified elsewhere; Z83.3 Family history of diabetes mellitus; Z82.49 Family history of ischemic heart disease and other diseases of the circulatory system; Z89.422 Acquired absence of other left toe(s); Z79.4 Long term (current) use of insulin
CPT/HCPCS: 36415; 36569; 37224; 73630; 75630; 76937; 77001; 80048; 80053; 80061; 80202; 82962; 83605; 83735; 84145; 84443; 85007; 85025; 85651; 86140; 87040; 87071; 87075; 87186; 87205; 88304; 88311; 93005; 93306; 93925; 93971; 96360; 99152; 99153; C1725; C1751; C1769; C1771; C1892; C2623; G0269; J1100; J1644; J1650; J1815; J2001; J2185; J2250; J2405; J2543; J2704; J3010; J3370; J3475; J3490; J7030; J7040; J7050; S0028; 97110; 97116; 99285-25; A4461

== ENCOUNTER → 2018-01-10 | Outpatient (CLI) | payer MEDICARE ==
[~2018-01-10] MED LIST changes: -AMLO5TAB2 PO; +AMLO5TAB7 PO; +METF500T16 PO; -METF500T5 PO
[2018-01-10 11:10] LABS: BASO # 0.1 x10^3/uL (0.0-0.2); BASO % 1 % (0-3); EOS # 0.5 x10^3/uL (0.0-0.7); EOS % 5 % (0-3); HEMATOCRIT 38.3 % (39.0-53.0); HEMOGLOBIN 13.6 g/dL (13.0-17.5); LYMPH # 3.2 x10^3/uL (1.0-4.8); LYMPH % 31 % (24-48); MEAN CORPUSCULAR HEMOGLOBIN 33 pg (25-35); MEAN CORPUSCULAR HGB CONC 36 g/dL (31-37); MEAN CORPUSCULAR VOLUME 92 fL (79-100); MONO % 9 % (0-9); NEUT # 5.7 x10^3uL (1.8-7.7); NEUT % 55 % (31-73); PLATELET COUNT 334 x10^3/uL (140-400); RED BLOOD COUNT 4.17 x10^6/uL (4.30-5.70); RED CELL DISTRIBUTION WIDTH 13.6 % (11.5-14.5); WHITE BLOOD COUNT 10.5 x10^3/uL (4.0-11.0)
[2018-01-10 11:35] LABS: CALCIUM 8.9 mg/dL (8.5-10.1); CREATININE 1.2 mg/dL (0.7-1.3); GFR 60.6; POTASSIUM 4.6 mmol/L (3.5-5.1)
== END | disposition home or self-care (01) ==
LOC: PMGWOUND 09:28
PROVIDERS: ATTEND Preventive Medicine Undersea and Hyperbaric Medicine
DX: E11.621 Type 2 diabetes mellitus with foot ulcer (principal); L97.521 Non-pressure chronic ulcer of other part of left foot limited to breakdown of skin; E11.42 Type 2 diabetes mellitus with diabetic polyneuropathy; E11.69 Type 2 diabetes mellitus with other specified complication; M86.172 Other acute osteomyelitis, left ankle and foot; L84 Corns and callosities; I10 Essential (primary) hypertension; F41.9 Anxiety disorder, unspecified; F43.20 Adjustment disorder, unspecified; I48.91 Unspecified atrial fibrillation; E78.5 Hyperlipidemia, unspecified; E03.9 Hypothyroidism, unspecified; Z79.4 Long term (current) use of insulin; Z89.422 Acquired absence of other left toe(s)
CPT/HCPCS: 11044; 36415; 80048; 84134; 85025; 85651; 97597

== ENCOUNTER → 2018-01-18 | Outpatient (CLI) | payer MEDICARE, OTHER ==
[~2018-01-18] MED LIST changes: +ACET325T9 PO; +ASCO500T3 PO; +CLOP75TA PO; +GLIP5TAB10 PO; +HYDR12.53 PO; +LORA10TA3 PO; +METO25TA4 PO; +MICO85PO6 TP; +MULT-246 PO; +VIT1TABL8 PO
== END | disposition home or self-care (01) ==
LOC: PMGWOUND 09:20
PROVIDERS: ATTEND Emergency Medicine Undersea and Hyperbaric Medicine
DX: E11.621 Type 2 diabetes mellitus with foot ulcer (principal); L97.524 Non-pressure chronic ulcer of other part of left foot with necrosis of bone; E11.69 Type 2 diabetes mellitus with other specified complication; M86.172 Other acute osteomyelitis, left ankle and foot; E11.42 Type 2 diabetes mellitus with diabetic polyneuropathy; L84 Corns and callosities; F41.9 Anxiety disorder, unspecified; F43.20 Adjustment disorder, unspecified; E78.5 Hyperlipidemia, unspecified; I48.91 Unspecified atrial fibrillation; H35.30 Unspecified macular degeneration
CPT/HCPCS: 11042; 97597

== ENCOUNTER → 2018-01-18 | Outpatient (CLI) | payer MEDICARE ==
[~2018-01-18] MED LIST changes: -ACET325T9 PO; -ASCO500T3 PO; -CLOP75TA PO; -GLIP5TAB10 PO; -HYDR12.53 PO; -LORA10TA3 PO; -METO25TA4 PO; -MICO85PO6 TP; -MULT-246 PO; -VIT1TABL8 PO
[2018-01-18] MEDS: GADOBUTROL 7.5 MMOL/7.5 ML VIAL IV ONE (11:33)
--- NOTE | 2018-01-18 12:52 | RAD ---
MRI left foot with and without contrast dated 01/18/2018. No comparison available. Clinical indication: Left foot wound. Recent amputation. TECHNIQUE: T1 and T2-weighted imaging performed in 3 planes to include the mid and forefoot region. Postcontrast fat-saturated T1-weighted sequences acquired after the intravenous and demonstration of 7.5 cc Gadavist. FINDINGS: There is been prior amputation of the third digit at the level of the MTP joint. There is abnormal hypointense T1 signal of the third metatarsal head and neck with ill-defined cortical margins and abnormal enhancement within the bone. Edema and enhancement throughout the surrounding soft tissues. No well-circumscribed fluid collection to suggest abscess. There is also abnormal signal at the second MTP joint with truncation of the second metatarsal head/neck and ill-definition of the base of the proximal phalanx. There is only mild edema and enhancement within the surrounding soft tissues. Minimal edema within the marrow of the second metatarsal head. There is been amputation at the first digit at the base of the first metatarsal. No significant signal abnormality in the surrounding soft tissues or within the underlying marrow. There has been amputation of the fourth digit at the midshaft proximal phalanx. Mild edema within the overlying soft tissues without associated bone marrow edema or cortical destruction. There is edema throughout the plantar foot musculature with edema throughout the dorsal and plantar subcutaneous tissues. Diffuse enhancement without well-circumscribed fluid collection. IMPRESSION: 1. Findings consistent with acute osteomyelitis involving the head and neck of third metatarsal. There is evidence of prior amputation at the third MTP joint. 2. Diffuse edema and enhancement throughout the subcutaneous tissues and plantar foot musculature, nonspecific. This could be related to generalized cellulitis/myositis. Underlying diabetic neurovascular edema is also possible. No evidence of abscess. 3. Cortical irregularity at the second MTP joint without significant underlying bone marrow edema. This could be postsurgical or related to subacute to remote episodes of osteomyelitis and/or septic joint. Correlate clinically. 4. Prior amputation of the first metatarsal and fourth proximal phalanx without evidence of recurrent osteomyelitis. Electronically signed by: Rommel Gonzalez MD (01/18/2018 12:49 PM) [id number]
== END | disposition home or self-care (01) ==
LOC: MRI 10:21
PROVIDERS: ATTEND Preventive Medicine Undersea and Hyperbaric Medicine
DX: L97.524 Non-pressure chronic ulcer of other part of left foot with necrosis of bone (principal); M86.172 Other acute osteomyelitis, left ankle and foot
CPT/HCPCS: 73720; A9585

== ENCOUNTER 2018-01-23 15:08 | Inpatient (IN) | payer MEDICARE, OTHER ==
[~2018-01-23] VITALS: Ht 160 cm; Wt 76.7 kg
--- NOTE | 2018-01-23 17:08 | PDOC1 ---
History and Physical Date of Admission Date of Admission DATE: 01/23/18 TIME: 17:08 Identification/Chief Complaint Chief Complaint 7 weeks ago he had callosus removed from his left foot, he states he followed up with the [facility] wound clinic . He states the area was healing well. He states for the last couple days he's noted redness on the foot as well as streaks of redness to the the leg. Past Medical History Past Medical History PAST MEDICAL HISTORY: Cognitively challenged, hypertension, hypothyroidism, diabetes, 2 toes amputated on the left. ALLERGIES: None. FAMILY HISTORY: Diabetes. SOCIAL HISTORY: He lives in a [place] [facility] [place]. He does not drink, smoke or take drugs. MEDICATIONS: Reviewed, please refer to the [facility]. Cardiovascular: HTN, Hyperlipidemia, Other Pulmonary: No pertinent hx CENTRAL NERVOUS SYSTEM: Periperal neuropathy GI: No pertinent hx Heme/Onc: No pertinent hx Musculoskeletal: Osteoarthritis Rheumatologic: No pertinent hx Infectious disease: No pertinent hx Renal/: No pertinent hx Endocrine: Diabetes, Hypothyroidism Past Surgical History Past Surgical History: Other Family History Family History: Coronary Artery Disease, Heart Disease Social History Smoke: No ALCOHOL: none Drugs: None Current Medications Current Medications Active Scripts Active Reported Fluocinolone Acetonide Oil 20 Ml Drops 20 Ml OT 3X/WEEK Ammonium Lactate 385 Gm Cream..g. 385 Gm TP BID Metformin Hcl 500 Mg Tablet 1 Tab PO BID Lisinopril 20 Mg Tablet 1 Tab PO BID Levothyroxine Sodium 25 Mcg Tablet 1 Tab PO DAILY Clonidine Hcl 0.2 Mg Tablet 0.2 Mg PO DAILY Clonidine Hcl 0.1 Mg Tablet 1 Tab PO QHS Aspir 81 (Aspirin) 81 Mg Tablet.dr 1 Tab PO DAILY Amlodipine Besylate 5 Mg Tablet 5 Mg PO BID Allergies Allergies: Coded Allergies: I S O L A T I O N *CONTACT* (Verified Allergy, Unknown, 11/20/17) mrsa No Known Medication Allergies (Verified Allergy, Unknown, 11/20/17) ROS Review of System 14 pt ros otherwise neg General: No: Chills, Night Sweats, Fatigue, Malaise, Appetite, Other PSYCHOLOGICAL ROS: YES: Anxiety Eyes: No Blurry vision, No Decreased vision, No Double vision, No Dry eyes, No Excessive tearing, No Eye Pain, No Itchy Eyes, No Loss of vision, No Photophobia , No Scotomata, No Uses contacts, No Uses glasses, No Other HEENT: No: Heacaches, Visual Changes, Hearing change, Nasal congestion, Nasal discharge, Oral lesions, Sinus pain, Sore Throat, Epistaxis, Sneezing, Snoring, Tinnitus, Vertigo, Vocal changes, Other ALLERGY AND IMMUNOLOGY: No: Hives, Insect Bite Sensitivity, Itchy/Watery Eyes, Nasal Congestion, Post Nasal Drip, Seasonal Allergies, Other Hematological and Lymphatic: No: Bleeding Problems, Blood Clots, Blood Transfusions, Brusing, Night Sweats, Pallor, Swollen Lymph Nodes, Other Breast: No New/Changing Breast Lumps, No Nipple changes, No Nipple discharge, No Other Respiratory: No: Cough, Hemoptysis, Orthopnea, Pleuritic Pain, Shortness of breath, SOB with excertion, Sputum Changes, Stridor, Tachypnea, Wheezing, Other Cardiovascular: No Chest Pain, No Palpitations, No Orthopnea, No Paroxysmal Noc. Dyspnea, No Edema, No Lt Headedness, No Other Gastrointestinal: No Nausea, No Vomiting, No Abdominal Pain, No Diarrhea, No Constipation, No Melena, No Hematochezia, No Other Physical Exam Physical Exam Physical Exam Physical Exam GENERAL: Sitting on the side of the bed, NAD eating dinner HENT: Normal conjunctivae LUNGS: Clear. HEART: S1, S2 No murmur appreciated ABDOMEN: Soft, NT EXTREMITIES: Right lower extremity is unremarkable. Edema 1+ left foot, though deep and close to bone NEUROLOGIC: Alert, responds appropriately SKIN: without rash. No peripheral stigmata PIV ok General: Alert, Cooperative, No acute distress Heart: Regular rate, Normal S1, No murmurs Lungs: Clear Abdomen: Normal bowel sounds, Soft, No tenderness Extremities: No clubbing, No cyanosis, No edema, General: Oriented X3, Cooperative HEENT: Atraumatic, PERRLA Lungs: Clear to auscultation Heart: S1S2, RRR Breasts: Not examined Abdomen: Normal bowel sounds, Soft Rectal Exam: not examined Extremities: No cyanosis Neuro: Cranial nerves 3-12 NL VTE Prophylaxis Ordered VTE Prophylaxis Devices: Yes VTE Pharmacological Prophylaxi: Yes Assessment/Plan Assessment/Plan impression left Diabetic foot cellulitis/osteomyelitis s/p I AND d With wound vac on d/c last month Cognitively challenged, hypertension, hypothyroidism, diabetes, 2nd , 3rd and 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 Extensive diabetic foot infection , left with hx abscess and possible osteomyelitis Leukocytosis DM HTN BC + g + cocci, MRCA, enterococci on last stay MRCA bacteremia left leg PAD s/p SFA angioplasty plan iv merem iv vanc ortho consult ID CONSULT [email or web address] DVT prophylaxis wound cultures wound care team to see tele blood cult PALAK LARSON MD Jan 23, 2018 17:08
[2018-01-23] MEDS ORDERED: ACETAMINOPHEN 325 MG TABLET. PO SCH (17:15)
[2018-01-23] MEDS ORDERED: IV NORMAL SALINE 1000ML BAG 1,000 ML IV SCH (17:15)
[2018-01-23] MEDS ORDERED: DEXTROSE 50% 25 GM / 50ML DISP.SYRIN. IV PRN (17:15)
[2018-01-23] MEDS ORDERED: ACET325T9 PO (17:16)
[2018-01-23] MEDS ORDERED: MULT-246 PO (17:17)
[2018-01-23] MEDS ORDERED: CLOP75TA PO (17:17)
[2018-01-23] MEDS ORDERED: GLIP5TAB10 PO (17:17)
[2018-01-23] MEDS ORDERED: HYDR12.53 PO (17:18)
[2018-01-23] MEDS ORDERED: METO25TA4 PO (17:19)
[2018-01-23] MEDS ORDERED: ASCO500T3 PO (17:20)
[2018-01-23] MEDS ORDERED: SODIUM PHOSPHATES 19/7GM 133 ML ENEMA. PR PRN (17:30)
[2018-01-23] MEDS ORDERED: VANCOMYCIN 1 GM in IV DEXTROSE 5% 250 ML IV ONE (17:30)
[2018-01-23] MEDS ORDERED: VANCOMYCIN 1.75 GM in IV NORMAL SALINE 500ML BAG 500 ML IV ONE (17:30)
[2018-01-23] MEDS ORDERED: VANCOMYCIN PER PHARMACY MC PRN (17:30)
[2018-01-23] MEDS: INSULIN LISPRO 300 UNITS/3 ML INSULN.PEN. SQ SCH (17:30)
[2018-01-23] MEDS ORDERED: 0.9 % SODIUM CHLORIDE 3ML DISP.SYRIN. IV PRN (17:30)
[2018-01-23] MEDS ORDERED: MEROPENEM 500 MG in IV NORMAL SALINE 50ML 50 ML IV ONE (17:30)
[2018-01-23] MEDS ORDERED: ALBUTEROL SULFATE 2.5 MG/3 ML NEBU. NEB PRN (17:30)
[2018-01-23] MEDS ORDERED: MAG HYDROX/ALUMINUM HYD/SIMETH 30 ML ORAL.SUSP PO PRN (17:30)
[2018-01-23] MEDS ORDERED: ONDANSETRON PF 4 MG/2 ML VIAL. IV PRN (17:30)
[2018-01-23] MEDS ORDERED: ACETAMINOPHEN 325 MG TABLET. PO PRN (17:30)
[2018-01-23 17:50] LABS: BASO # 0.1 x10^3/uL (0.0-0.2); BASO % 1 % (0-3); EOS # 0.8 x10^3/uL (0.0-0.7); EOS % 9 % (0-3); HEMOGLOBIN 12.9 g/dL (13.0-17.5); LYMPH # 3.1 x10^3/uL (1.0-4.8); LYMPH % 33 % (24-48); MEAN CORPUSCULAR HEMOGLOBIN 33 pg (25-35); MEAN CORPUSCULAR HGB CONC 36 g/dL (31-37); MEAN CORPUSCULAR VOLUME 91 fL (79-100); MONO # 0.8 x10^3/uL (0.0-1.1); MONO % 8 % (0-9); NEUT # 4.6 x10^3uL (1.8-7.7); NEUT % 49 % (31-73); PLATELET COUNT 272 x10^3/uL (140-400); RED BLOOD COUNT 3.98 x10^6/uL (4.30-5.70); RED CELL DISTRIBUTION WIDTH 13.3 % (11.5-14.5); WHITE BLOOD COUNT 9.4 x10^3/uL (4.0-11.0)
[2018-01-23] MEDS: metFORMIN 500 MG TABLET PO SCH (17:59)
[2018-01-23] MEDS: IV NORMAL SALINE 1000ML BAG 1,000 ML IV SCH (17:59)
[2018-01-23 18:00] LABS: CREATININE 1.1 mg/dL (0.7-1.3); POTASSIUM 4.1 mmol/L (3.5-5.1)
[2018-01-23 18:06] LABS: ALBUMIN 3.4 g/dL (3.4-5.0); ALBUMIN/GLOBULIN RATIO 0.6 (1.0-1.7); TOTAL BILIRUBIN 0.6 mg/dL (0.2-1.0); TOTAL PROTEIN 8.8 g/dL (6.4-8.2)
[2018-01-23] MEDS ORDERED: HYDROcodone/APAP 5/325MG 1 TAB TABLET PO PRN (18:30)
[2018-01-23 18:35] LABS: BILIRUBIN,URINE NEGATIVE (NEG); CLARITY,URINE CLEAR; COLOR,URINE YELLOW; NITRITE,URINE NEGATIVE (NEG); PROTEIN,URINE NEGATIVE (NEG-TRACE); UROBILINOGEN,URINE 0.2 mg/dL (0.2 mg/dL)
[2018-01-23 18:45] LABS: BACTERIA,URINE 0 /HPF (0-FEW); HYALINE CASTS, URINE FEW /HPF; SQUAMOUS EPITHELIAL CELL,UR FEW /LPF; WBC,URINE 0 /HPF (0-4)
[2018-01-23 19:15] VITALS: BP 148/67
[2018-01-23] MEDS: VANCOMYCIN PER PHARMACY MC PRN (19:53)
[2018-01-23] MEDS: amLODIPine BESYLATE 10 MG TABLET PO SCH (21:51)
[2018-01-23] MEDS: LISINOPRIL 20 MG TABLET PO SCH (21:51)
[2018-01-23] MEDS: MEROPENEM 500 MG in IV NORMAL SALINE 50ML 50 ML IV SCH (21:52)
[2018-01-23 22:38] VITALS: BP 116/62
[2018-01-24 03:14] VITALS: BP 106/68
[2018-01-24 04:46] LABS: HEMATOCRIT 32.8 % (39.0-53.0); HEMOGLOBIN 11.9 g/dL (13.0-17.5); RED BLOOD COUNT 3.63 x10^6/uL (4.30-5.70); RED CELL DISTRIBUTION WIDTH 13.4 % (11.5-14.5); WHITE BLOOD COUNT 8.7 x10^3/uL (4.0-11.0)
[2018-01-24] MEDS: LEVOTHYROXINE 25 MCG TABLET. PO SCH (05:43)
[2018-01-24] MEDS: MEROPENEM 500 MG in IV NORMAL SALINE 50ML 50 ML IV SCH ×3 (05:44→22:00)
[2018-01-24] MEDS: IV NORMAL SALINE 1000ML BAG 1,000 ML IV SCH ×2 (05:46→12:08)
[2018-01-24] MEDS: guaiFENesin ORAL 200 MG/10 ML LIQUID. PO PRN (05:47)
[2018-01-24 07:00] VITALS: BP 122/65
[2018-01-24] MEDS: ENOXAPARIN 40 MG/0.4 ML SYRINGE. SQ SCH (07:57)
--- NOTE | 2018-01-24 07:57 | RAD ---
Bilateral lower extremity venous ultrasound, 01/23/2018: History: Bilateral leg swelling Duplex evaluation of the deep veins in the lower extremities was performed including grayscale, color-flow and spectral Doppler analysis. The femoral and popliteal veins demonstrate normal compressibility and normal responses to distal augmentation maneuvers. Color imaging of those vessels shows no evidence of intraluminal clot. The visualized deep veins in both calves are patent. Slightly prominent lymph nodes are noted at the left groin. IMPRESSION: There is no sonographic evidence of deep vein thrombosis in either lower extremity. Electronically signed by: Carlitos Major MD (01/24/2018 7:53 AM) [facility]
--- NOTE | 2018-01-24 07:57 | RAD ---
Portable chest, 01/23/2018: HISTORY: Osteomyelitis The heart is at the upper limits of normal in size. The pulmonary vascularity is normal. No pulmonary infiltrate is seen. There is no evidence of pleural fluid. IMPRESSION: No acute cardiopulmonary abnormality is detected. Electronically signed by: Carlitos Major MD (01/24/2018 7:54 AM) [facility]
[2018-01-24] MEDS: INSULIN LISPRO 300 UNITS/3 ML INSULN.PEN. SQ SCH ×3 (08:00→16:55)
[2018-01-24] MEDS: glipiZIDE 5 MG TABLET PO SCH ×2 (08:28→16:55)
[2018-01-24] MEDS: LISINOPRIL 20 MG TABLET PO SCH ×2 (08:28→21:40)
[2018-01-24] MEDS: ASCORBIC ACID 500 MG TABLET PO SCH (08:28)
[2018-01-24] MEDS: MULTIVITAMIN I-VITE TABLET. PO SCH (08:29)
[2018-01-24] MEDS: hydroCHLOROthiazide 12.5 MG CAPSULE PO SCH (08:29)
[2018-01-24] MEDS: METOPROLOL TART IMMED RELEASE 25 MG TABLET. PO SCH (08:29)
[2018-01-24] MEDS: CLOPIDOGREL BISULFATE 75 MG TABLET PO SCH (08:29)
[2018-01-24] MEDS: ASPIRIN ENTERIC COATED 81 MG TABLET.DR. PO SCH (08:29)
[2018-01-24] MEDS: metFORMIN 500 MG TABLET PO SCH ×2 (08:29→16:55)
[2018-01-24] MEDS: amLODIPine BESYLATE 10 MG TABLET PO SCH ×2 (08:30→21:41)
--- NOTE | 2018-01-24 08:37 | PDOC ---
Infectious Disease Note Vital Sign Vital Signs Vital Signs Date Time Temp Pulse Resp B/P (MAP) Pulse Ox O2 Delivery O2 Flow Rate FiO2 01/24/18 07:00 97.5 78 16 122/65 (84) 97 Room Air 97.5 Labs Lab Laboratory Tests Test 01/23/18 17:22 01/23/18 17:40 01/23/18 18:10 01/24/18 03:05 Glucose (Fingerstick) 109 mg/dL (70-99) White Blood Count 9.4 x10^3/uL (4.0-11.0) 8.7 x10^3/uL (4.0-11.0) Red Blood Count 3.98 x10^6/uL (4.30-5.70) 3.63 x10^6/uL (4.30-5.70) Hemoglobin 12.9 g/dL (13.0-17.5) 11.9 g/dL (13.0-17.5) Hematocrit 36.0 % (39.0-53.0) 32.8 % (39.0-53.0) Mean Corpuscular Volume 91 fL (79-100) 90 fL (79-100) Mean Corpuscular Hemoglobin 33 pg (25-35) 33 pg (25-35) Mean Corpuscular Hemoglobin Concent 36 g/dL (31-37) 36 g/dL (31-37) Red Cell Distribution Width 13.3 % (11.5-14.5) 13.4 % (11.5-14.5) Platelet Count 272 x10^3/uL (140-400) 250 x10^3/uL (140-400) Neutrophils (%) (Auto) 49 % (31-73) Lymphocytes (%) (Auto) 33 % (24-48) Monocytes (%) (Auto) 8 % (0-9) Eosinophils (%) (Auto) 9 % (0-3) Basophils (%) (Auto) 1 % (0-3) Neutrophils # (Auto) 4.6 x10^3uL (1.8-7.7) Lymphocytes # (Auto) 3.1 x10^3/uL (1.0-4.8) Monocytes # (Auto) 0.8 x10^3/uL (0.0-1.1) Eosinophils # (Auto) 0.8 x10^3/uL (0.0-0.7) Basophils # (Auto) 0.1 x10^3/uL (0.0-0.2) Sodium Level 143 mmol/L (136-145) Potassium Level 4.1 mmol/L (3.5-5.1) Chloride Level 106 mmol/L (98-107) Carbon Dioxide Level 27 mmol/L (21-32) Anion Gap 10 (6-14) Blood Urea Nitrogen 35 mg/dL (8-26) Creatinine 1.1 mg/dL (0.7-1.3) Estimated GFR (Cockcroft-Gault) 67.0 BUN/Creatinine Ratio 32 (6-20) Glucose Level 134 mg/dL (70-99) Lactic Acid Level 1.2 mmol/L (0.4-2.0) Calcium Level 9.0 mg/dL (8.5-10.1) Total Bilirubin 0.6 mg/dL (0.2-1.0) Aspartate Amino Transf (AST/SGOT) 18 U/L (15-37) Alanine Aminotransferase (ALT/SGPT) 26 U/L (16-63) Alkaline Phosphatase 181 U/L (46-116) Total Protein 8.8 g/dL (6.4-8.2) Albumin 3.4 g/dL (3.4-5.0) Albumin/Globulin Ratio 0.6 (1.0-1.7) Urine Collection Type Unknown Urine Color Yellow Urine Clarity Clear Urine pH 5.0 Urine Specific Wiley 1.020 Urine Protein Negative mg/dL (NEG-TRACE) Urine Glucose (UA) Negative mg/dL (NEG) Urine Ketones (Stick) Negative mg/dL (NEG) Urine Blood Negative (NEG) Urine Nitrite Negative (NEG) Urine Bilirubin Negative (NEG) Urine Urobilinogen Dipstick 0.2 mg/dL (0.2 mg/dL) Urine Leukocyte Esterase Negative (NEG) Urine RBC 1-2 /HPF (0-2) Urine WBC 0 /HPF (0-4) Urine Squamous Epithelial Cells Few /LPF Urine Bacteria 0 /HPF (0-FEW) Urine Hyaline Casts Few /HPF Urine Mucus Slight /LPF Test 01/24/18 08:00 Glucose (Fingerstick) 118 mg/dL (70-99) Objective Assessment Osteomyelitis of 3 rd met DM PAD HTN Plan Plan of Care vanc and meropenem vascular surgery consult supportive care JUSTINA ROSSI MD Jan 24, 2018 08:37
[2018-01-24 11:00] VITALS: BP 118/54
[2018-01-24] MEDS: VANCOMYCIN 1.25 GM in IV NORMAL SALINE 250ML 250 ML IV SCH (12:05)
--- NOTE | 2018-01-24 13:29 | PDOC2 ---
CONSULT Date of Consult Date of Consult DATE: 01/24/18 TIME: 13:17 Reason for Consult Reason for Consult: chronic would left foot Referring Physician Referring Physician: Fullbright Identification/Chief Complaint Chief Complaint Chronic wound left foot status post I&D Source Source: Chart review, Patient History of Present Illness Reason for Visit: 67 year old male admitted for left foot infection status post I&D by Dr. Mcnair on 11/16/17 and followed up post operatively with the [facility] wound care clinic. He had MRI performed on 01/18/18 which showed osteomyelitis to left foot. He denies pain to foot. he denies nausea, vomitting, fever, chills, shortness of breath or chest pain Past Medical History Cardiovascular: HTN, Hyperlipidemia, Other Pulmonary: No pertinent hx CENTRAL NERVOUS SYSTEM: Periperal neuropathy GI: No pertinent hx Heme/Onc: No pertinent hx Musculoskeletal: Osteoarthritis Rheumatologic: No pertinent hx Infectious disease: No pertinent hx Renal/: No pertinent hx Endocrine: Diabetes, Hypothyroidism Past Surgical History Past Surgical History: Other (I&D left foot) Family History Family History: Coronary Artery Disease, Heart Disease Social History No ALCOHOL: none Drugs: None Lives: Alone Current Medications Current Medications Current Medications Vancomycin HCl (Vanco Per Pharmacy) 1 each PRN DAILY PRN MC SEE COMMENTS Last administered on 01/23/18at 19:53; Start 01/23/18 at 17:15 Meropenem 500 mg/ Sodium Chloride 50 ml @ 100 mls/hr Q8HRS IV Last administered on 01/24/18at 12:07; Start 01/23/18 at 22:00 Sodium Chloride 1,000 ml @ 75 mls/hr [id number] IV ; Start 01/23/18 at 17:15; Status Cancel Insulin Human Lispro (HumaLOG) 0-5 UNITS TIDWMEALS SQ ; Start 01/23/18 at 17:30 Dextrose (Dextrose 50%-Water Syringe) 12.5 gm PRN Q15MIN PRN IV SEE COMMENTS; Start 01/23/18 at 17:15 Vancomycin HCl 1.75 gm/Sodium Chloride 500 ml @ 250 mls/hr 1X ONCE IV Last administered on 01/23/18at 17:58; Start 01/23/18 at 17:30; Stop 01/23/18 at 19 :29; Status DC Meropenem 500 mg/ Sodium Chloride 50 ml @ 100 mls/hr 1X ONCE IV Last administered on 01/23/18at 17:57; Start 01/23/18 at 17:30; Stop 01/23/18 at 17 :59; Status DC Acetaminophen (Tylenol) 650 mg PRN Q4HRS PO ; Start 01/23/18 at 17:15; Status UNV Amlodipine Besylate (Norvasc) 10 mg BID PO Last administered on 01/24/18 08: 30; Start 01/23/18 at 21:00 Ascorbic Acid (Vitamin C) 500 mg DAILY PO Last administered on 01/24/18 08:28 ; Start 01/24/18 at 09:00 Aspirin (Ecotrin) 81 mg DAILY PO Last administered on 01/24/18 08:29; Start 01/24/18 at 09:00 Clopidogrel Bisulfate (Plavix) 75 mg DAILY PO Last administered on 01/24/18 08:29; Start 01/24/18 at 09:00 Glipizide (Glucotrol) 5 mg BIDAC PO Last administered on 01/24/18 08:28; Start 01/24/18 at 07:30 Lisinopril (Prinivil) 40 mg BID PO Last administered on 01/24/18 08:28; Start 01/23/18 at 21:00 Metoprolol Tartrate (Lopressor) 25 mg DAILY PO Last administered on 01/24/18 08:29; Start 01/24/18 at 09:00 Hydrochlorothiazide (Microzide) 12.5 mg DAILY PO Last administered on 08:29; Start 01/24/18 at 09:00 Levothyroxine Sodium (Synthroid) 25 mcg DAILY06 PO Last administered on at 05:43; Start 01/24/18 at 06:00 Metformin HCl (Glucophage) 500 mg BIDWMEALS PO Last administered on 01/24/18 08:29; Start 01/23/18 at 18:00 Multivitamins/ Minerals (I-Erica) 1 tab DAILY PO Last administered on 08:29; Start 01/24/18 at 09:00 Sodium Chloride (Normal Saline Flush 3ml) 3 ml QSHIFT PRN IV AFTER MEDS AND BLOOD DRAWS; Start 01/23/18 at 17:30 Sodium Chloride 1,000 ml @ 100 mls/hr Q10H IV Last administered on 01/24/18at 12:08; Start 01/23/18 at 18:00 Ondansetron HCl (Zofran) 4 mg PRN Q4HRS PRN IV NAUSEA/VOMITING; Start at 17:30 Acetaminophen (Tylenol) 650 mg PRN Q4HRS PRN PO TEMP OVER 100.4F OR MILD PAIN; Start 01/23/18 at 17:30 Al Hydroxide/Mg Hydroxide (Mylanta Plus Xs) 30 ml PRN DAILY PRN PO HEARTBURN / GAS; Start 01/23/18 at 17:30 Sodium Monofluorophosphate (Fleet Adult) 133 ml PRN DAILY PRN FL CONSTIPATION; Start 01/23/18 at 17:30 Docusate Sodium (Colace) 100 mg PRN BID PRN PO CONSTIPATION; Start 01/23/18 at 17:30 Albuterol Sulfate (Ventolin Neb Soln) 2.5 mg PRN Q4HRS PRN NEB SHORTNESS OF BREATH; Start 01/23/18 at 17:30 Guaifenesin (Robitussin) 200 mg PRN Q4HRS PRN PO COUGH Last administered on at 05:47; Start 01/23/18 at 17:30 Enoxaparin Sodium (Lovenox 40mg Syringe) 40 mg DAILY SQ ; Start 01/24/18 at 09: 00 Vancomycin HCl 1 gm/Dextrose 250 ml @ 250 mls/hr 1X ONCE IV ; Start 01/23/18 at 17:30; Stop 01/23/18 at 18:29; Status UNV Vancomycin HCl (Vanco Per Pharmacy) 1 each PRN DAILY PRN MC SEE COMMENTS; Start 01/23/18 at 17:30; Status UNV Acetaminophen/ Hydrocodone Bitart (Lortab 5/325) 1 tab PRN Q6HRS PRN PO PAIN; Start 01/23/18 at 18:30 Vancomycin HCl 1.25 gm/Sodium Chloride 250 ml @ 250 mls/hr Q18H IV Last administered on 01/24/18at 12:05; Start 01/24/18 at 12:00 Vancomycin HCl (Vancomycin Trough Level) 1 each 1X ONCE MC ; Start 01/25/18 at 05:30; Stop 01/25/18 at 05:31 Active Scripts Active Reported Ascorbic Acid 500 Mg Tablet 500 Mg PO Metoprolol Tartrate 25 Mg Tablet 1 Tab PO DAILY Hydrochlorothiazide Capsule (Hydrochlorothiazide) 12.5 Mg Capsule 1 Cap PO DAILY Glipizide 5 Mg Tablet 1 Tab PO BID Clopidogrel (Clopidogrel Bisulfate) 75 Mg Tablet 1 Tab PO DAILY Multi-Vitamin Daily (Multivitamin) 1 Each Tablet 1 Each PO Tylenol (Acetaminophen) 325 Mg Tablet 2 Tab PO PRN Q4HRS Metformin Hcl 500 Mg Tablet 1 Tab PO BID Lisinopril 20 Mg Tablet 2 Tab PO BID Levothyroxine Sodium 25 Mcg Tablet 1 Tab PO DAILY Aspir 81 (Aspirin) 81 Mg Tablet.dr 1 Tab PO DAILY Amlodipine Besylate 5 Mg Tablet 10 Mg PO BID Allergies Allergies: Coded Allergies: I S O L A T I O N *CONTACT* (Verified Allergy, Unknown, 11/20/17) mrsa No Known Medication Allergies (Verified Allergy, Unknown, 11/20/17) ROS General: No: Chills, Night Sweats, Fatigue, Malaise, Appetite, Other PSYCHOLOGICAL ROS: No: Anxiety, Behavioral Disorder, Concentration difficultie , Decreased libido, Depression, Disorientation, Hallucinations, Hostility, Irritablity, Memory difficulties, Mood Swings, Obsessive thoughts, Physical abuse, Sexual abuse, Sleep disturbances, Suicidal ideation, Other Eyes: No Blurry vision, No Decreased vision, No Double vision, No Dry eyes, No Excessive tearing, No Eye Pain, No Itchy Eyes, No Loss of vision, No Photophobia , No Scotomata, No Uses contacts, No Uses glasses, No Other HEENT: No: Heacaches, Visual Changes, Hearing change, Nasal congestion, Nasal discharge, Oral lesions, Sinus pain, Sore Throat, Epistaxis, Sneezing, Snoring, Tinnitus, Vertigo, Vocal changes, Other ALLERGY AND IMMUNOLOGY: No: Hives, Insect Bite Sensitivity, Itchy/Watery Eyes, Nasal Congestion, Post Nasal Drip, Seasonal Allergies, Other Hematological and Lymphatic: No: Bleeding Problems, Blood Clots, Blood Transfusions, Brusing, Night Sweats, Pallor, Swollen Lymph Nodes, Other ENDOCRINE: No: Breast Changes, Galactorrhea, Hair Pattern Changes, Hot Flashes , Malaise/lethargy, Mood Swings, Palpitations, Polydipsia/polyuria, Skin Changes , Temperature Intolerance, Unexpected Weight Changes, Other Breast: No New/Changing Breast Lumps, No Nipple changes, No Nipple discharge, No Other Respiratory: No: Cough, Hemoptysis, Orthopnea, Pleuritic Pain, Shortness of breath, SOB with excertion, Sputum Changes, Stridor, Tachypnea, Wheezing, Other Cardiovascular: No Chest Pain, No Palpitations, No Orthopnea, No Paroxysmal Noc. Dyspnea, No Edema, No Lt Headedness, No Other Gastrointestinal: No Nausea, No Vomiting, No Abdominal Pain, No Diarrhea, No Constipation, No Melena, No Hematochezia, No Other Genitourinary: No Dysuria, No Frequency, No Incontinence, No Hematuria, No Retention, No Discharge, No Urgency, No Pain, No Flank Pain, No Other, No , No , No , No , No , No , No Musculoskeletal: No Gait Disturbance, No Joint Pain, No Joint Stiffness, No Joint Swelling, No Muscle Pain, No Muscular Weakness, No Pain In:, No Swelling In:, No Other Neurological: No Behavorial Changes, No Bowel/Bladder ControlChng, No Confusion , No Dizziness, No Gait Disturbance, No Headaches, No Impaired Coord/balance, No Memory Loss, No Numbness/Tingling, No Seizures, No Speech Problems, No Tremors, No Visual Changes, No Weakness, No Other Skin: Yes Nail Changes, Yes Other (chronic ulcer) Physical Exam Physical Exam Lower extremity: Skin is cool, xerotic, atrophic. note full thickness ulceration to dorsal distal 2nd/3rd metatarsal left foot with granular base. mild periwound erythema. Also note plantar ulceration to central distal forefoot. no pustular drainage. no ascending cellulitis. no calor. previous digit amputations right foot. remaining nails are thickened and long. DP and PT non palpable. +1 non pitting edema to bilateral lower extremity. no hair is present to feet. sensation absent to sharp dull and light touch. General: Alert, No acute distress Vitals VITALS Vital Signs Date Time Temp Pulse Resp B/P (MAP) Pulse Ox O2 Delivery O2 Flow Rate FiO2 01/24/18 11:00 98.1 60 16 118/54 (75) 99 Room Air 98.1 Labs Labs Laboratory Tests Test 01/23/18 17:22 01/23/18 17:40 01/23/18 18:10 01/24/18 03:05 Glucose (Fingerstick) 109 mg/dL (70-99) White Blood Count 9.4 x10^3/uL (4.0-11.0) 8.7 x10^3/uL (4.0-11.0) Red Blood Count 3.98 x10^6/uL (4.30-5.70) 3.63 x10^6/uL (4.30-5.70) Hemoglobin 12.9 g/dL (13.0-17.5) 11.9 g/dL (13.0-17.5) Hematocrit 36.0 % (39.0-53.0) 32.8 % (39.0-53.0) Mean Corpuscular Volume 91 fL (79-100) 90 fL (79-100) Mean Corpuscular Hemoglobin 33 pg (25-35) 33 pg (25-35) Mean Corpuscular Hemoglobin Concent 36 g/dL (31-37) 36 g/dL (31-37) Red Cell Distribution Width 13.3 % (11.5-14.5) 13.4 % (11.5-14.5) Platelet Count 272 x10^3/uL (140-400) 250 x10^3/uL (140-400) Neutrophils (%) (Auto) 49 % (31-73) Lymphocytes (%) (Auto) 33 % (24-48) Monocytes (%) (Auto) 8 % (0-9) Eosinophils (%) (Auto) 9 % (0-3) Basophils (%) (Auto) 1 % (0-3) Neutrophils # (Auto) 4.6 x10^3uL (1.8-7.7) Lymphocytes # (Auto) 3.1 x10^3/uL (1.0-4.8) Monocytes # (Auto) 0.8 x10^3/uL (0.0-1.1) Eosinophils # (Auto) 0.8 x10^3/uL (0.0-0.7) Basophils # (Auto) 0.1 x10^3/uL (0.0-0.2) Sodium Level 143 mmol/L (136-145) Potassium Level 4.1 mmol/L (3.5-5.1) Chloride Level 106 mmol/L (98-107) Carbon Dioxide Level 27 mmol/L (21-32) Anion Gap 10 (6-14) Blood Urea Nitrogen 35 mg/dL (8-26) Creatinine 1.1 mg/dL (0.7-1.3) Estimated GFR (Cockcroft-Gault) 67.0 BUN/Creatinine Ratio 32 (6-20) Glucose Level 134 mg/dL (70-99) Lactic Acid Level 1.2 mmol/L (0.4-2.0) Calcium Level 9.0 mg/dL (8.5-10.1) Total Bilirubin 0.6 mg/dL (0.2-1.0) Aspartate Amino Transf (AST/SGOT) 18 U/L (15-37) Alanine Aminotransferase (ALT/SGPT) 26 U/L (16-63) Alkaline Phosphatase 181 U/L (46-116) Total Protein 8.8 g/dL (6.4-8.2) Albumin 3.4 g/dL (3.4-5.0) Albumin/Globulin Ratio 0.6 (1.0-1.7) Urine Collection Type Unknown Urine Color Yellow Urine Clarity Clear Urine pH 5.0 Urine Specific [place] 1.020 Urine Protein Negative mg/dL (NEG-TRACE) Urine Glucose (UA) Negative mg/dL (NEG) Urine Ketones (Stick) Negative mg/dL (NEG) Urine Blood Negative (NEG) Urine Nitrite Negative (NEG) Urine Bilirubin Negative (NEG) Urine Urobilinogen Dipstick 0.2 mg/dL (0.2 mg/dL) Urine Leukocyte Esterase Negative (NEG) Urine RBC 1-2 /HPF (0-2) Urine WBC 0 /HPF (0-4) Urine Squamous Epithelial Cells Few /LPF Urine Bacteria 0 /HPF (0-FEW) Urine Hyaline Casts Few /HPF Urine Mucus Slight /LPF Test 01/24/18 08:00 01/24/18 11:35 Glucose (Fingerstick) 118 mg/dL (70-99) 146 mg/dL (70-99) Laboratory Tests Test 01/23/18 17:22 01/23/18 17:40 01/23/18 18:10 01/24/18 03:05 Glucose (Fingerstick) 109 mg/dL (70-99) White Blood Count 9.4 x10^3/uL (4.0-11.0) 8.7 x10^3/uL (4.0-11.0) Red Blood Count 3.98 x10^6/uL (4.30-5.70) 3.63 x10^6/uL (4.30-5.70) Hemoglobin 12.9 g/dL (13.0-17.5) 11.9 g/dL (13.0-17.5) Hematocrit 36.0 % (39.0-53.0) 32.8 % (39.0-53.0) Mean Corpuscular Volume 91 fL (79-100) 90 fL (79-100) Mean Corpuscular Hemoglobin 33 pg (25-35) 33 pg (25-35) Mean Corpuscular Hemoglobin Concent 36 g/dL (31-37) 36 g/dL (31-37) Red Cell Distribution Width 13.3 % (11.5-14.5) 13.4 % (11.5-14.5) Platelet Count 272 x10^3/uL (140-400) 250 x10^3/uL (140-400) Neutrophils (%) (Auto) 49 % (31-73) Lymphocytes (%) (Auto) 33 % (24-48) Monocytes (%) (Auto) 8 % (0-9) Eosinophils (%) (Auto) 9 % (0-3) Basophils (%) (Auto) 1 % (0-3) Neutrophils # (Auto) 4.6 x10^3uL (1.8-7.7) Lymphocytes # (Auto) 3.1 x10^3/uL (1.0-4.8) Monocytes # (Auto) 0.8 x10^3/uL (0.0-1.1) Eosinophils # (Auto) 0.8 x10^3/uL (0.0-0.7) Basophils # (Auto) 0.1 x10^3/uL (0.0-0.2) Sodium Level 143 mmol/L (136-145) Potassium Level 4.1 mmol/L (3.5-5.1) Chloride Level 106 mmol/L (98-107) Carbon Dioxide Level 27 mmol/L (21-32) Anion Gap 10 (6-14) Blood Urea Nitrogen 35 mg/dL (8-26) Creatinine 1.1 mg/dL (0.7-1.3) Estimated GFR (Cockcroft-Gault) 67.0 BUN/Creatinine Ratio 32 (6-20) Glucose Level 134 mg/dL (70-99) Lactic Acid Level 1.2 mmol/L (0.4-2.0) Calcium Level 9.0 mg/dL (8.5-10.1) Total Bilirubin 0.6 mg/dL (0.2-1.0) Aspartate Amino Transf (AST/SGOT) 18 U/L (15-37) Alanine Aminotransferase (ALT/SGPT) 26 U/L (16-63) Alkaline Phosphatase 181 U/L (46-116) Total Protein 8.8 g/dL (6.4-8.2) Albumin 3.4 g/dL (3.4-5.0) Albumin/Globulin Ratio 0.6 (1.0-1.7) Urine Collection Type Unknown Urine Color Yellow Urine Clarity Clear Urine pH 5.0 Urine Specific [place] 1.020 Urine Protein Negative mg/dL (NEG-TRACE) Urine Glucose (UA) Negative mg/dL (NEG) Urine Ketones (Stick) Negative mg/dL (NEG) Urine Blood Negative (NEG) Urine Nitrite Negative (NEG) Urine Bilirubin Negative (NEG) Urine Urobilinogen Dipstick 0.2 mg/dL (0.2 mg/dL) Urine Leukocyte Esterase Negative (NEG) Urine RBC 1-2 /HPF (0-2) Urine WBC 0 /HPF (0-4) Urine Squamous Epithelial Cells Few /LPF Urine Bacteria 0 /HPF (0-FEW) Urine Hyaline Casts Few /HPF Urine Mucus Slight /LPF Test 01/24/18 08:00 01/24/18 11:35 Glucose (Fingerstick) 118 mg/dL (70-99) 146 mg/dL (70-99) Images Images MRI 01/18/18: IMPRESSION: 1. Findings consistent with acute osteomyelitis involving the head and neck of third metatarsal. There is evidence of prior amputation at the third MTP joint. 2. Diffuse edema and enhancement throughout the subcutaneous tissues and plantar foot musculature, nonspecific. This could be related to generalized cellulitis/myositis. Underlying diabetic neurovascular edema is also possible. No evidence of abscess. 3. Cortical irregularity at the second MTP joint without significant underlying bone marrow edema. This could be postsurgical or related to subacute to remote episodes of osteomyelitis and/or septic joint. Correlate clinically. 4. Prior amputation of the first metatarsal and fourth proximal phalanx without evidence of recurrent osteomyelitis. Assessment/Plan Assessment/Plan 67 year old male with osteomyelitis left forefoot, peripheral vascular disease, status post I&D left foot, onychauxis, onychomycosis -Reviewed MRI and note osteomyelitis to metatarsals -Patient is established with Dr. Mcnair-recommend consult for definitive transmetatarsal amputation left foot, pending vascular consultation--note previous arterial doppler shows stenosis and possible intervention. -Continue daily local wound care per wound team -ID on consult, appreciate recs -Nails debrided less than 6 without incident. -Reconsult as needed in the future. Will sign off CATRINA MARIE DPM Jan 24, 2018 13:29
[2018-01-24 15:00] VITALS: BP 136/63
--- NOTE | 2018-01-24 15:37 | PDOC ---
PROGRESS NOTES Chief Complaint Chief Complaint Left diabetic foot cellulitis/osteomyelitis Acute leukocytosis Acute hyperglycemia H/o DM H/o PAD H/o MRSA H/o cognitive disability H/o HTN H/o hypothyroidism H/o amputation (2 toes on left foot) History of Present Illness History of Present Illness Pt seen and examined Pt was pleasant, sitting upright in chair having just finished eating during our visit Stated he his feeling well overall and has a good appetite Discussed w/RN Vitals Vitals Vital Signs Date Time Temp Pulse Resp B/P (MAP) Pulse Ox O2 Delivery O2 Flow Rate FiO2 01/24/18 11:00 98.1 60 16 118/54 (75) 99 Room Air 98.1 Physical Exam General: Alert, Cooperative, No acute distress Heart: Regular rate, Normal S1, Normal S2 Lungs: Clear Abdomen: Normal bowel sounds, Soft, No tenderness Extremities: No cyanosis Skin: Other (L diabetic foot cellulitis/osteomyelitis wound dressing clean, dry and intact) Labs LABS Laboratory Tests Test 01/23/18 17:22 01/23/18 17:40 01/23/18 18:10 01/24/18 03:05 Glucose (Fingerstick) 109 mg/dL (70-99) White Blood Count 9.4 x10^3/uL (4.0-11.0) 8.7 x10^3/uL (4.0-11.0) Red Blood Count 3.98 x10^6/uL (4.30-5.70) 3.63 x10^6/uL (4.30-5.70) Hemoglobin 12.9 g/dL (13.0-17.5) 11.9 g/dL (13.0-17.5) Hematocrit 36.0 % (39.0-53.0) 32.8 % (39.0-53.0) Mean Corpuscular Volume 91 fL (79-100) 90 fL (79-100) Mean Corpuscular Hemoglobin 33 pg (25-35) 33 pg (25-35) Mean Corpuscular Hemoglobin Concent 36 g/dL (31-37) 36 g/dL (31-37) Red Cell Distribution Width 13.3 % (11.5-14.5) 13.4 % (11.5-14.5) Platelet Count 272 x10^3/uL (140-400) 250 x10^3/uL (140-400) Neutrophils (%) (Auto) 49 % (31-73) Lymphocytes (%) (Auto) 33 % (24-48) Monocytes (%) (Auto) 8 % (0-9) Eosinophils (%) (Auto) 9 % (0-3) Basophils (%) (Auto) 1 % (0-3) Neutrophils # (Auto) 4.6 x10^3uL (1.8-7.7) Lymphocytes # (Auto) 3.1 x10^3/uL (1.0-4.8) Monocytes # (Auto) 0.8 x10^3/uL (0.0-1.1) Eosinophils # (Auto) 0.8 x10^3/uL (0.0-0.7) Basophils # (Auto) 0.1 x10^3/uL (0.0-0.2) Sodium Level 143 mmol/L (136-145) Potassium Level 4.1 mmol/L (3.5-5.1) Chloride Level 106 mmol/L (98-107) Carbon Dioxide Level 27 mmol/L (21-32) Anion Gap 10 (6-14) Blood Urea Nitrogen 35 mg/dL (8-26) Creatinine 1.1 mg/dL (0.7-1.3) Estimated GFR (Cockcroft-Gault) 67.0 BUN/Creatinine Ratio 32 (6-20) Glucose Level 134 mg/dL (70-99) Lactic Acid Level 1.2 mmol/L (0.4-2.0) Calcium Level 9.0 mg/dL (8.5-10.1) Total Bilirubin 0.6 mg/dL (0.2-1.0) Aspartate Amino Transf (AST/SGOT) 18 U/L (15-37) Alanine Aminotransferase (ALT/SGPT) 26 U/L (16-63) Alkaline Phosphatase 181 U/L (46-116) Total Protein 8.8 g/dL (6.4-8.2) Albumin 3.4 g/dL (3.4-5.0) Albumin/Globulin Ratio 0.6 (1.0-1.7) Urine Collection Type Unknown Urine Color Yellow Urine Clarity Clear Urine pH 5.0 Urine Specific Clune 1.020 Urine Protein Negative mg/dL (NEG-TRACE) Urine Glucose (UA) Negative mg/dL (NEG) Urine Ketones (Stick) Negative mg/dL (NEG) Urine Blood Negative (NEG) Urine Nitrite Negative (NEG) Urine Bilirubin Negative (NEG) Urine Urobilinogen Dipstick 0.2 mg/dL (0.2 mg/dL) Urine Leukocyte Esterase Negative (NEG) Urine RBC 1-2 /HPF (0-2) Urine WBC 0 /HPF (0-4) Urine Squamous Epithelial Cells Few /LPF Urine Bacteria 0 /HPF (0-FEW) Urine Hyaline Casts Few /HPF Urine Mucus Slight /LPF Test 01/24/18 08:00 01/24/18 11:35 Glucose (Fingerstick) 118 mg/dL (70-99) 146 mg/dL (70-99) Review of Systems Review of Systems Pt states he is feeling well overall and has a good appetite Denies pain and changes in bowel/bladder habits Assessment and Plan Assessmemt and Plan Assessment: Left diabetic foot cellulitis/osteomyelitis Acute leukocytosis Acute hyperglycemia H/o DM H/o PAD H/o MRSA H/o cognitive disability H/o HTN H/o hypothyroidism H/o amputation (2 toes on left foot) Plan: Cont IV abx Follow ortho recommendations Follow ID recommendations Awaiting wound cultures Wound care Hyperglycemia management Labs PT/OT Home meds DVT ppx Comment Review of Relevant I have reviewed the following items billy (where applicable) has been applied. Labs Laboratory Tests Test 01/23/18 17:22 01/23/18 17:40 01/23/18 18:10 01/24/18 03:05 Glucose (Fingerstick) 109 mg/dL (70-99) White Blood Count 9.4 x10^3/uL (4.0-11.0) 8.7 x10^3/uL (4.0-11.0) Red Blood Count 3.98 x10^6/uL (4.30-5.70) 3.63 x10^6/uL (4.30-5.70) Hemoglobin 12.9 g/dL (13.0-17.5) 11.9 g/dL (13.0-17.5) Hematocrit 36.0 % (39.0-53.0) 32.8 % (39.0-53.0) Mean Corpuscular Volume 91 fL (79-100) 90 fL (79-100) Mean Corpuscular Hemoglobin 33 pg (25-35) 33 pg (25-35) Mean Corpuscular Hemoglobin Concent 36 g/dL (31-37) 36 g/dL (31-37) Red Cell Distribution Width 13.3 % (11.5-14.5) 13.4 % (11.5-14.5) Platelet Count 272 x10^3/uL (140-400) 250 x10^3/uL (140-400) Neutrophils (%) (Auto) 49 % (31-73) Lymphocytes (%) (Auto) 33 % (24-48) Monocytes (%) (Auto) 8 % (0-9) Eosinophils (%) (Auto) 9 % (0-3) Basophils (%) (Auto) 1 % (0-3) Neutrophils # (Auto) 4.6 x10^3uL (1.8-7.7) Lymphocytes # (Auto) 3.1 x10^3/uL (1.0-4.8) Monocytes # (Auto) 0.8 x10^3/uL (0.0-1.1) Eosinophils # (Auto) 0.8 x10^3/uL (0.0-0.7) Basophils # (Auto) 0.1 x10^3/uL (0.0-0.2) Sodium Level 143 mmol/L (136-145) Potassium Level 4.1 mmol/L (3.5-5.1) Chloride Level 106 mmol/L (98-107) Carbon Dioxide Level 27 mmol/L (21-32) Anion Gap 10 (6-14) Blood Urea Nitrogen 35 mg/dL (8-26) Creatinine 1.1 mg/dL (0.7-1.3) Estimated GFR (Cockcroft-Gault) 67.0 BUN/Creatinine Ratio 32 (6-20) Glucose Level 134 mg/dL (70-99) Lactic Acid Level 1.2 mmol/L (0.4-2.0) Calcium Level 9.0 mg/dL (8.5-10.1) Total Bilirubin 0.6 mg/dL (0.2-1.0) Aspartate Amino Transf (AST/SGOT) 18 U/L (15-37) Alanine Aminotransferase (ALT/SGPT) 26 U/L (16-63) Alkaline Phosphatase 181 U/L (46-116) Total Protein 8.8 g/dL (6.4-8.2) Albumin 3.4 g/dL (3.4-5.0) Albumin/Globulin Ratio 0.6 (1.0-1.7) Urine Collection Type Unknown Urine Color Yellow Urine Clarity Clear Urine pH 5.0 Urine Specific Clune 1.020 Urine Protein Negative mg/dL (NEG-TRACE) Urine Glucose (UA) Negative mg/dL (NEG) Urine Ketones (Stick) Negative mg/dL (NEG) Urine Blood Negative (NEG) Urine Nitrite Negative (NEG) Urine Bilirubin Negative (NEG) Urine Urobilinogen Dipstick 0.2 mg/dL (0.2 mg/dL) Urine Leukocyte Esterase Negative (NEG) Urine RBC 1-2 /HPF (0-2) Urine WBC 0 /HPF (0-4) Urine Squamous Epithelial Cells Few /LPF Urine Bacteria 0 /HPF (0-FEW) Urine Hyaline Casts Few /HPF Urine Mucus Slight /LPF Test 01/24/18 08:00 01/24/18 11:35 Glucose (Fingerstick) 118 mg/dL (70-99) 146 mg/dL (70-99) Laboratory Tests Test 01/23/18 17:22 01/23/18 17:40 01/23/18 18:10 01/24/18 03:05 Glucose (Fingerstick) 109 mg/dL (70-99) White Blood Count 9.4 x10^3/uL (4.0-11.0) 8.7 x10^3/uL (4.0-11.0) Red Blood Count 3.98 x10^6/uL (4.30-5.70) 3.63 x10^6/uL (4.30-5.70) Hemoglobin 12.9 g/dL (13.0-17.5) 11.9 g/dL (13.0-17.5) Hematocrit 36.0 % (39.0-53.0) 32.8 % (39.0-53.0) Mean Corpuscular Volume 91 fL (79-100) 90 fL (79-100) Mean Corpuscular Hemoglobin 33 pg (25-35) 33 pg (25-35) Mean Corpuscular Hemoglobin Concent 36 g/dL (31-37) 36 g/dL (31-37) Red Cell Distribution Width 13.3 % (11.5-14.5) 13.4 % (11.5-14.5) Platelet Count 272 x10^3/uL (140-400) 250 x10^3/uL (140-400) Neutrophils (%) (Auto) 49 % (31-73) Lymphocytes (%) (Auto) 33 % (24-48) Monocytes (%) (Auto) 8 % (0-9) Eosinophils (%) (Auto) 9 % (0-3) Basophils (%) (Auto) 1 % (0-3) Neutrophils # (Auto) 4.6 x10^3uL (1.8-7.7) Lymphocytes # (Auto) 3.1 x10^3/uL (1.0-4.8) Monocytes # (Auto) 0.8 x10^3/uL (0.0-1.1) Eosinophils # (Auto) 0.8 x10^3/uL (0.0-0.7) Basophils # (Auto) 0.1 x10^3/uL (0.0-0.2) Sodium Level 143 mmol/L (136-145) Potassium Level 4.1 mmol/L (3.5-5.1) Chloride Level 106 mmol/L (98-107) Carbon Dioxide Level 27 mmol/L (21-32) Anion Gap 10 (6-14) Blood Urea Nitrogen 35 mg/dL (8-26) Creatinine 1.1 mg/dL (0.7-1.3) Estimated GFR (Cockcroft-Gault) 67.0 BUN/Creatinine Ratio 32 (6-20) Glucose Level 134 mg/dL (70-99) Lactic Acid Level 1.2 mmol/L (0.4-2.0) Calcium Level 9.0 mg/dL (8.5-10.1) Total Bilirubin 0.6 mg/dL (0.2-1.0) Aspartate Amino Transf (AST/SGOT) 18 U/L (15-37) Alanine Aminotransferase (ALT/SGPT) 26 U/L (16-63) Alkaline Phosphatase 181 U/L (46-116) Total Protein 8.8 g/dL (6.4-8.2) Albumin 3.4 g/dL (3.4-5.0) Albumin/Globulin Ratio 0.6 (1.0-1.7) Urine Collection Type Unknown Urine Color Yellow Urine Clarity Clear Urine pH 5.0 Urine Specific Clune 1.020 Urine Protein Negative mg/dL (NEG-TRACE) Urine Glucose (UA) Negative mg/dL (NEG) Urine Ketones (Stick) Negative mg/dL (NEG) Urine Blood Negative (NEG) Urine Nitrite Negative (NEG) Urine Bilirubin Negative (NEG) Urine Urobilinogen Dipstick 0.2 mg/dL (0.2 mg/dL) Urine Leukocyte Esterase Negative (NEG) Urine RBC 1-2 /HPF (0-2) Urine WBC 0 /HPF (0-4) Urine Squamous Epithelial Cells Few /LPF Urine Bacteria 0 /HPF (0-FEW) Urine Hyaline Casts Few /HPF Urine Mucus Slight /LPF Test 01/24/18 08:00 01/24/18 11:35 Glucose (Fingerstick) 118 mg/dL (70-99) 146 mg/dL (70-99) Medications Current Medications Vancomycin HCl (Vanco Per Pharmacy) 1 each PRN DAILY PRN MC SEE COMMENTS Last administered on 01/23/18at 19:53; Start 01/23/18 at 17:15 Meropenem 500 mg/ Sodium Chloride 50 ml @ 100 mls/hr Q8HRS IV Last administered on 01/24/18at 12:07; Start 01/23/18 at 22:00 Sodium Chloride 1,000 ml @ 75 mls/hr [id number] IV ; Start 01/23/18 at 17:15; Status Cancel Insulin Human Lispro (HumaLOG) 0-5 UNITS TIDWMEALS SQ ; Start 01/23/18 at 17:30 Dextrose (Dextrose 50%-Water Syringe) 12.5 gm PRN Q15MIN PRN IV SEE COMMENTS; Start 01/23/18 at 17:15 Vancomycin HCl 1.75 gm/Sodium Chloride 500 ml @ 250 mls/hr 1X ONCE IV Last administered on 01/23/18at 17:58; Start 01/23/18 at 17:30; Stop 01/23/18 at 19 :29; Status DC Meropenem 500 mg/ Sodium Chloride 50 ml @ 100 mls/hr 1X ONCE IV Last administered on 01/23/18at 17:57; Start 01/23/18 at 17:30; Stop 01/23/18 at 17 :59; Status DC Acetaminophen (Tylenol) 650 mg PRN Q4HRS PO ; Start 01/23/18 at 17:15; Status UNV Amlodipine Besylate (Norvasc) 10 mg BID PO Last administered on 01/24/18 08: 30; Start 01/23/18 at 21:00 Ascorbic Acid (Vitamin C) 500 mg DAILY PO Last administered on 01/24/18 08:28 ; Start 01/24/18 at 09:00 Aspirin (Ecotrin) 81 mg DAILY PO Last administered on 01/24/18 08:29; Start 01/24/18 at 09:00 Clopidogrel Bisulfate (Plavix) 75 mg DAILY PO Last administered on 01/24/18 08:29; Start 01/24/18 at 09:00 Glipizide (Glucotrol) 5 mg BIDAC PO Last administered on 01/24/18 08:28; Start 01/24/18 at 07:30 Lisinopril (Prinivil) 40 mg BID PO Last administered on 01/24/18 08:28; Start 01/23/18 at 21:00 Metoprolol Tartrate (Lopressor) 25 mg DAILY PO Last administered on 01/24/18 08:29; Start 01/24/18 at 09:00 Hydrochlorothiazide (Microzide) 12.5 mg DAILY PO Last administered on 08:29; Start 01/24/18 at 09:00 Levothyroxine Sodium (Synthroid) 25 mcg DAILY06 PO Last administered on 05:43; Start 01/24/18 at 06:00 Metformin HCl (Glucophage) 500 mg BIDWMEALS PO Last administered on 01/24/18 08:29; Start 01/23/18 at 18:00 Multivitamins/ Minerals (I-Erica) 1 tab DAILY PO Last administered on 08:29; Start 01/24/18 at 09:00 Sodium Chloride (Normal Saline Flush 3ml) 3 ml QSHIFT PRN IV AFTER MEDS AND BLOOD DRAWS; Start 01/23/18 at 17:30 Sodium Chloride 1,000 ml @ 100 mls/hr Q10H IV Last administered on 01/24/18at 12:08; Start 01/23/18 at 18:00 Ondansetron HCl (Zofran) 4 mg PRN Q4HRS PRN IV NAUSEA/VOMITING; Start at 17:30 Acetaminophen (Tylenol) 650 mg PRN Q4HRS PRN PO TEMP OVER 100.4F OR MILD PAIN; Start 01/23/18 at 17:30 Al Hydroxide/Mg Hydroxide (Mylanta Plus Xs) 30 ml PRN DAILY PRN PO HEARTBURN / GAS; Start 01/23/18 at 17:30 Sodium Monofluorophosphate (Fleet Adult) 133 ml PRN DAILY PRN MS CONSTIPATION; Start 01/23/18 at 17:30 Docusate Sodium (Colace) 100 mg PRN BID PRN PO CONSTIPATION; Start 01/23/18 at 17:30 Albuterol Sulfate (Ventolin Neb Soln) 2.5 mg PRN Q4HRS PRN NEB SHORTNESS OF BREATH; Start 01/23/18 at 17:30 Guaifenesin (Robitussin) 200 mg PRN Q4HRS PRN PO COUGH Last administered on at 05:47; Start 01/23/18 at 17:30 Enoxaparin Sodium (Lovenox 40mg Syringe) 40 mg DAILY SQ ; Start 01/24/18 at 09: 00 Vancomycin HCl 1 gm/Dextrose 250 ml @ 250 mls/hr 1X ONCE IV ; Start 01/23/18 at 17:30; Stop 01/23/18 at 18:29; Status UNV Vancomycin HCl (Vanco Per Pharmacy) 1 each PRN DAILY PRN MC SEE COMMENTS; Start 01/23/18 at 17:30; Status UNV Acetaminophen/ Hydrocodone Bitart (Lortab 5/325) 1 tab PRN Q6HRS PRN PO PAIN; Start 01/23/18 at 18:30 Vancomycin HCl 1.25 gm/Sodium Chloride 250 ml @ 250 mls/hr Q18H IV Last administered on 01/24/18at 12:05; Start 01/24/18 at 12:00 Vancomycin HCl (Vancomycin Trough Level) 1 each 1X ONCE MC ; Start 01/25/18 at 05:30; Stop 01/25/18 at 05:31 Active Scripts Active Reported Ascorbic Acid 500 Mg Tablet 500 Mg PO Metoprolol Tartrate 25 Mg Tablet 1 Tab PO DAILY Hydrochlorothiazide Capsule (Hydrochlorothiazide) 12.5 Mg Capsule 1 Cap PO DAILY Glipizide 5 Mg Tablet 1 Tab PO BID Clopidogrel (Clopidogrel Bisulfate) 75 Mg Tablet 1 Tab PO DAILY Multi-Vitamin Daily (Multivitamin) 1 Each Tablet 1 Each PO Tylenol (Acetaminophen) 325 Mg Tablet 2 Tab PO PRN Q4HRS Metformin Hcl 500 Mg Tablet 1 Tab PO BID Lisinopril 20 Mg Tablet 2 Tab PO BID Levothyroxine Sodium 25 Mcg Tablet 1 Tab PO DAILY Aspir 81 (Aspirin) 81 Mg Tablet. 1 Tab PO DAILY Amlodipine Besylate 5 Mg Tablet 10 Mg PO BID Vitals/I & O Vital Sign - Last 24 Hours 01/23/18 01/23/18 01/23/18 01/23/18 16:30 19:15 20:00 20:00 Temp 97.6 97.6 Pulse 78 Resp 18 B/P (MAP) 148/67 (94) Pulse Ox 97 98 O2 Delivery Room Air Room Air Room Air Room Air 01/23/18 01/23/18 01/23/18 01/24/18 21:51 21:51 22:38 03:14 Temp 97.8 97.5 97.8 97.5 Pulse 78 78 120 74 Resp 18 18 B/P (MAP) 148/67 148/67 116/62 (80) 106/68 (81) Pulse Ox 97 98 O2 Delivery Room Air Room Air 01/24/18 01/24/18 01/24/18 01/24/18 07:00 08:15 08:28 08:29 Temp 97.5 97.5 Pulse 78 78 78 Resp 16 B/P (MAP) 122/65 (84) 122/65 122/65 Pulse Ox 97 O2 Delivery Room Air Room Air 01/24/18 01/24/18 08:30 11:00 Temp 98.1 98.1 Pulse 78 60 Resp 16 B/P (MAP) 122/65 118/54 (75) Pulse Ox 99 O2 Delivery Room Air Intake and Output 01/23/18 01/23/18 01/24/18 15:00 23:00 07:00 Intake Total 790 ml 240 ml Output Total 950 ml 300 ml Balance -160 ml -60 ml ERIKA REEVES III DO Jan 24, 2018 15:37
[2018-01-24] MEDS: VANCOMYCIN PER PHARMACY MC PRN (15:59)
[2018-01-24 19:48] VITALS: BP 126/55
[2018-01-24] MEDS: LACTOBACILLUS RHAMNOSUS GG 1 CAPSULE. PO SCH (21:40)
[2018-01-24 22:20] VITALS: BP 124/51
--- NOTE | 2018-01-24 22:39 | CONS ---
DATE OF CONSULTATION: 01/24/2018 REQUESTING PHYSICIAN: Dr. Masoud Beyer. REASON FOR CONSULTATION: Osteomyelitis of the third metatarsal. HISTORY OF PRESENT ILLNESS: This is a 67-year-old gentleman who has been admitted yesterday from our office as the patient was seen with purulent drainage from the partially amputated third toe and with the MRI showing osteomyelitis of the metatarsal head. The patient was seen in November with a foot infection and osteomyelitis. The patient also had MRSA in the blood and in the foot as well as morganella and enterobacter. The patient was discharged on IV antibiotics and the patient never showed up for the appointment with us in the office. Evidently, he finished "6 weeks" and then he started having another wound, which is different from the last time, hence he went to the [facility]ound Care where he had an MRI done and was showing osteomyelitis; hence he was referred to our office and we initiated admission. The patient denies any nausea, vomiting, diarrhea. Denies any fever, denies any chest pain, shortness of breath, abdominal pain, urinary symptoms or bowel symptoms. PAST MEDICAL HISTORY: Positive for diabetes mellitus, peripheral arterial disease with angioplasty done in that leg. The patient has had first toe amputation, third toe partial amputation done in the past, hypertension, hyperlipidemia, peripheral neuropathy, osteoarthritis, hypothyroidism. SOCIAL HISTORY: Negative for smoking, alcohol, illicit drug use. ALLERGIES: No known drug allergies. CURRENT MEDICATIONS: Reviewed. The patient is on vancomycin and meropenem. REVIEW OF SYSTEMS: As per HPI, all other systems reviewed are negative. PHYSICAL EXAMINATION: GENERAL: Alert, oriented gentleman, not in distress. VITAL SIGNS: Stable, afebrile. HEENT: NAD. NECK: Supple, no JVP, no lymphadenopathy. LUNGS: Clear. HEART: S1, S2 regular. ABDOMEN: Benign. EXTREMITIES: The patient has left lower extremity first toe amputation, which has nicely healed. The patient has third toe partially amputated where the drainage is coming out. Does have mild edema, dorsalis pedis is weakly palpable. NEUROLOGIC: The patient is neurologically intact. LABORATORY DATA: White count is 8.7, hemoglobin 11.9, platelets are normal. Sed rate a few days ago was 55, BUN and creatinine is 35 and 1.1. Lactic acid was normal. Urinalysis is unremarkable. He did have an MRI showing acute osteomyelitis involving the head and the neck of the third metatarsal. IMPRESSION: 1. Acute osteomyelitis of the left foot third metatarsal. 2. Diabetes. 3. Neuropathy. 4. Peripheral arterial disease. 5. History of methicillin-resistant Staphylococcus aureus bacteremia and foot infection and he never followed up with us. RECOMMENDATIONS: Would use vancomycin and meropenem. Supportive care. Orthopedic surgery has already been consulted, so we will not involve Vascular Surgery. Thank you very much, Dr. Beyer, for giving me the opportunity to participate in this patient's care. JUSTINA ROSSI MD DR: EMERY/marcos JOB#: [id number] / [id number]
[2018-01-25 02:58] VITALS: BP 129/51
[2018-01-25] MEDS: MEROPENEM 500 MG in IV NORMAL SALINE 50ML 50 ML IV SCH ×3 (05:30→21:42)
[2018-01-25] MEDS: LEVOTHYROXINE 25 MCG TABLET. PO SCH (06:10)
[2018-01-25] MEDS: IV NORMAL SALINE 1000ML BAG 1,000 ML IV SCH ×2 (06:11→10:00)
[2018-01-25 06:39] LABS: BASO # 0.1 x10^3/uL (0.0-0.2); BASO % 1 % (0-3); EOS # 0.8 x10^3/uL (0.0-0.7); EOS % 10 % (0-3); HEMATOCRIT 34.1 % (39.0-53.0); HEMOGLOBIN 12.1 g/dL (13.0-17.5); LYMPH # 2.4 x10^3/uL (1.0-4.8); LYMPH % 32 % (24-48); MEAN CORPUSCULAR HEMOGLOBIN 32 pg (25-35); MEAN CORPUSCULAR HGB CONC 36 g/dL (31-37); MEAN CORPUSCULAR VOLUME 90 fL (79-100); MONO # 0.7 x10^3/uL (0.0-1.1); MONO % 9 % (0-9); NEUT # 3.7 x10^3uL (1.8-7.7); NEUT % 48 % (31-73); PLATELET COUNT 234 x10^3/uL (140-400); RED BLOOD COUNT 3.78 x10^6/uL (4.30-5.70); RED CELL DISTRIBUTION WIDTH 13.5 % (11.5-14.5); WHITE BLOOD COUNT 7.7 x10^3/uL (4.0-11.0)
[2018-01-25 06:55] LABS: CALCIUM 8.3 mg/dL (8.5-10.1); GFR 74.8; POTASSIUM 3.8 mmol/L (3.5-5.1)
[2018-01-25 07:00] VITALS: BP 130/50
[2018-01-25 07:00] LABS: VANC TR 13.2 mcg/mL (10.0-20.0)
[2018-01-25] MEDS: VANCOMYCIN PER PHARMACY MC PRN ×2 (07:09→13:55)
[2018-01-25] MEDS: VANCOMYCIN 1.25 GM in IV NORMAL SALINE 250ML 250 ML IV SCH ×2 (07:25→20:19)
[2018-01-25] MEDS: glipiZIDE 5 MG TABLET PO SCH ×2 (07:56→17:40)
[2018-01-25] MEDS: metFORMIN 500 MG TABLET PO SCH ×2 (07:56→17:40)
[2018-01-25] MEDS: INSULIN LISPRO 300 UNITS/3 ML INSULN.PEN. SQ SCH ×3 (08:00→17:00)
--- NOTE | 2018-01-25 08:09 | PDOC ---
GENERAL General: Patient seen bedside eating breakfast. He denies pain to his foot. He denies nausea, vomitting, fever, chills. Dressing to foot is clean, dry, intact. compartments soft. Patient is alert and in no apparent distress VITAL SIGNS Vital Signs: Vital Signs Date Time Temp Pulse Resp B/P (MAP) Pulse Ox O2 Delivery O2 Flow Rate FiO2 01/25/18 02:58 78 18 129/51 (77) 97 Room Air 01/24/18 22:20 98.9 98.9 I & O I & O Intake and Output 01/25/18 07:00 Intake Total 2980 ml Output Total 300 ml Balance 2680 ml Intake Oral 580 ml IV Total 1200 ml Other 1200 ml Output Urine Total 300 ml # Voids 16 # Bowel Movements 1 ALLERGIES Allergies: Allergies Coded Allergies Type Severity Reaction Last Updated Verified I S O L A T I O N *CONTACT* Allergy Unknown 11/20/17 Yes No Known Medication Allergies Allergy Unknown 11/20/17 Yes MEDS Medications: Current Medications Medications (Trade) Dose Ordered Sig/Susan Start Time Stop Time Status Last Admin Dose Admin Acetaminophen (Tylenol) 650 mg PRN Q4HRS PRN 01/23/18 17:30 Acetaminophen/ Hydrocodone Bitart (Lortab 5/325) 1 tab PRN Q6HRS PRN 01/23/18 18:30 Al Hydroxide/Mg Hydroxide (Mylanta Plus Xs) 30 ml PRN DAILY PRN 01/23/18 17:30 Albuterol Sulfate (Ventolin Neb Soln) 2.5 mg PRN Q4HRS PRN 01/23/18 17:30 Amlodipine Besylate (Norvasc) 10 mg BID 01/23/18 21:00 01/24/18 21:41 10 MG Ascorbic Acid (Vitamin C) 500 mg DAILY 01/24/18 09:00 01/24/18 08:28 500 MG Aspirin (Ecotrin) 81 mg DAILY 01/24/18 09:00 01/24/18 08:29 81 MG Clopidogrel Bisulfate (Plavix) 75 mg DAILY 01/24/18 09:00 01/24/18 08:29 75 MG Dextrose (Dextrose 50%-Water Syringe) 12.5 gm PRN Q15MIN PRN 01/23/18 17:15 Docusate Sodium (Colace) 100 mg PRN BID PRN 01/23/18 17:30 Enoxaparin Sodium (Lovenox 40mg Syringe) 40 mg DAILY 01/24/18 09:00 Glipizide (Glucotrol) 5 mg BIDAC 01/24/18 07:30 01/25/18 07:56 5 MG Guaifenesin (Robitussin) 200 mg PRN Q4HRS PRN 01/23/18 17:30 01/24/18 05:47 200 MG Hydrochlorothiazide (Microzide) 12.5 mg DAILY 01/24/18 09:00 01/24/18 08:29 12.5 MG Insulin Human Lispro (HumaLOG) 0-5 UNITS TIDWMEALS 01/23/18 17:30 Lactobacillus Rhamnosus (Culturelle) 1 cap BID 01/24/18 21:00 01/24/18 21:40 1 CAP Levothyroxine Sodium (Synthroid) 25 mcg DAILY06 01/24/18 06:00 01/25/18 06:10 25 MCG Lisinopril (Prinivil) 40 mg BID 01/23/18 21:00 01/24/18 21:40 40 MG Meropenem 500 mg/ Sodium Chloride 50 ml @ 100 mls/hr 1X ONCE 01/23/18 17:30 01/23/18 17:59 DC 01/23/18 17:57 100 MLS/HR Metformin HCl (Glucophage) 500 mg BIDWMEALS 01/23/18 18:00 01/25/18 07:56 500 MG Metoprolol Tartrate (Lopressor) 25 mg DAILY 01/24/18 09:00 01/24/18 08:29 25 MG Multivitamins/ Minerals (I-Erica) 1 tab DAILY 01/24/18 09:00 01/24/18 08:29 1 TAB Ondansetron HCl (Zofran) 4 mg PRN Q4HRS PRN 01/23/18 17:30 Sodium Monofluorophosphate (Fleet Adult) 133 ml PRN DAILY PRN 01/23/18 17:30 Sodium Chloride 1,000 ml @ 100 mls/hr Q10H 01/23/18 18:00 01/25/18 06:11 100 MLS/HR Sodium Chloride (Normal Saline Flush 3ml) 3 ml QSHIFT PRN 01/23/18 17:30 Vancomycin HCl (Vanco Per Pharmacy) 1 each PRN DAILY PRN 01/23/18 17:30 UNV Vancomycin HCl (Vancomycin Trough Level) 1 each 1X ONCE 01/25/18 05:30 01/25/18 05:31 DC 01/25/18 06:30 1 EACH Vancomycin HCl 1.25 gm/Sodium Chloride 250 ml @ 250 mls/hr Q12H 01/25/18 20:00 Vancomycin HCl 1.75 gm/Sodium Chloride 500 ml @ 250 mls/hr 1X ONCE 01/23/18 17:30 01/23/18 19:29 DC 01/23/18 17:58 250 MLS/HR Vancomycin HCl 1 gm/Dextrose 250 ml @ 250 mls/hr 1X ONCE 01/23/18 17:30 01/23/18 18:29 UNV LAB Lab: Laboratory Tests Test 01/24/18 11:35 01/24/18 16:26 01/24/18 20:31 01/25/18 05:45 Glucose (Fingerstick) 146 mg/dL (70-99) 113 mg/dL (70-99) 108 mg/dL (70-99) White Blood Count 7.7 x10^3/uL (4.0-11.0) Red Blood Count 3.78 x10^6/uL (4.30-5.70) Hemoglobin 12.1 g/dL (13.0-17.5) Hematocrit 34.1 % (39.0-53.0) Mean Corpuscular Volume 90 fL (79-100) Mean Corpuscular Hemoglobin 32 pg (25-35) Mean Corpuscular Hemoglobin Concent 36 g/dL (31-37) Red Cell Distribution Width 13.5 % (11.5-14.5) Platelet Count 234 x10^3/uL (140-400) Neutrophils (%) (Auto) 48 % (31-73) Lymphocytes (%) (Auto) 32 % (24-48) Monocytes (%) (Auto) 9 % (0-9) Eosinophils (%) (Auto) 10 % (0-3) Basophils (%) (Auto) 1 % (0-3) Neutrophils # (Auto) 3.7 x10^3uL (1.8-7.7) Lymphocytes # (Auto) 2.4 x10^3/uL (1.0-4.8) Monocytes # (Auto) 0.7 x10^3/uL (0.0-1.1) Eosinophils # (Auto) 0.8 x10^3/uL (0.0-0.7) Basophils # (Auto) 0.1 x10^3/uL (0.0-0.2) Sodium Level 145 mmol/L (136-145) Potassium Level 3.8 mmol/L (3.5-5.1) Chloride Level 109 mmol/L (98-107) Carbon Dioxide Level 27 mmol/L (21-32) Anion Gap 9 (6-14) Blood Urea Nitrogen 21 mg/dL (8-26) Creatinine 1.0 mg/dL (0.7-1.3) Estimated GFR (Cockcroft-Gault) 74.8 Glucose Level 111 mg/dL (70-99) Calcium Level 8.3 mg/dL (8.5-10.1) Vancomycin Level Trough 13.2 mcg/mL (10.0-20.0) Vancomycin Last Dose Date 01/24/18 Vancomycin Last Dose Time 1200 ASSESSMENT & PLAN A&P 67 year old male with osteomyelitis to metatarsals and peripheral vascular disease -Awaiting orthopedic consult. Dr. Alvarado consulted, however patient established with Dr. Mcnair -Defer to orthopedics for definitive procedure, probable TMA -Recommend peripheral vascular evaluation to optimize healing, Cardiology- Vascular-or interventional radiology -Will sign off. CATRINA MARIE DPM Jan 25, 2018 08:09
[2018-01-25] MEDS: ENOXAPARIN 40 MG/0.4 ML SYRINGE. SQ SCH (09:00)
[2018-01-25] MEDS: MULTIVITAMIN I-VITE TABLET. PO SCH (09:25)
[2018-01-25] MEDS: hydroCHLOROthiazide 12.5 MG CAPSULE PO SCH (09:25)
[2018-01-25] MEDS: LISINOPRIL 20 MG TABLET PO SCH (09:26)
[2018-01-25] MEDS: CLOPIDOGREL BISULFATE 75 MG TABLET PO SCH (09:26)
[2018-01-25] MEDS: amLODIPine BESYLATE 10 MG TABLET PO SCH (09:27)
[2018-01-25] MEDS: LACTOBACILLUS RHAMNOSUS GG 1 CAPSULE. PO SCH ×2 (09:27→20:19)
[2018-01-25] MEDS: ASCORBIC ACID 500 MG TABLET PO SCH (09:27)
[2018-01-25] MEDS: METOPROLOL TART IMMED RELEASE 25 MG TABLET. PO SCH (09:28)
[2018-01-25] MEDS: ASPIRIN ENTERIC COATED 81 MG TABLET.DR. PO SCH (09:34)
--- NOTE | 2018-01-25 09:39 | PDOC ---
PROGRESS NOTES Chief Complaint Chief Complaint Left diabetic foot cellulitis/osteomyelitis Acute leukocytosis Acute hyperglycemia H/o DM H/o PAD H/o MRSA H/o cognitive disability H/o HTN H/o hypothyroidism H/o amputation (2 toes on left foot) History of Present Illness History of Present Illness Pt seen and examined while laying comfortably in bed awaiting a shower Stated he his feeling well overall Discussed w/RN Vitals Vitals Vital Signs Date Time Temp Pulse Resp B/P (MAP) Pulse Ox O2 Delivery O2 Flow Rate FiO2 01/25/18 07:00 97.9 64 16 130/50 (76) 98 Room Air 97.9 Physical Exam General: Alert, Cooperative, No acute distress Heart: Regular rate, Normal S1, Normal S2 Lungs: Clear Abdomen: Normal bowel sounds, Soft, No tenderness Extremities: No cyanosis Skin: Other (L diabetic foot cellulitis/osteomyelitis. Wound dressing was removed in preparation for shower. Slight purulent discharge from the wound was noted) Labs LABS Laboratory Tests Test 01/24/18 11:35 01/24/18 16:26 01/24/18 20:31 01/25/18 05:45 Glucose (Fingerstick) 146 mg/dL (70-99) 113 mg/dL (70-99) 108 mg/dL (70-99) White Blood Count 7.7 x10^3/uL (4.0-11.0) Red Blood Count 3.78 x10^6/uL (4.30-5.70) Hemoglobin 12.1 g/dL (13.0-17.5) Hematocrit 34.1 % (39.0-53.0) Mean Corpuscular Volume 90 fL (79-100) Mean Corpuscular Hemoglobin 32 pg (25-35) Mean Corpuscular Hemoglobin Concent 36 g/dL (31-37) Red Cell Distribution Width 13.5 % (11.5-14.5) Platelet Count 234 x10^3/uL (140-400) Neutrophils (%) (Auto) 48 % (31-73) Lymphocytes (%) (Auto) 32 % (24-48) Monocytes (%) (Auto) 9 % (0-9) Eosinophils (%) (Auto) 10 % (0-3) Basophils (%) (Auto) 1 % (0-3) Neutrophils # (Auto) 3.7 x10^3uL (1.8-7.7) Lymphocytes # (Auto) 2.4 x10^3/uL (1.0-4.8) Monocytes # (Auto) 0.7 x10^3/uL (0.0-1.1) Eosinophils # (Auto) 0.8 x10^3/uL (0.0-0.7) Basophils # (Auto) 0.1 x10^3/uL (0.0-0.2) Sodium Level 145 mmol/L (136-145) Potassium Level 3.8 mmol/L (3.5-5.1) Chloride Level 109 mmol/L (98-107) Carbon Dioxide Level 27 mmol/L (21-32) Anion Gap 9 (6-14) Blood Urea Nitrogen 21 mg/dL (8-26) Creatinine 1.0 mg/dL (0.7-1.3) Estimated GFR (Cockcroft-Gault) 74.8 Glucose Level 111 mg/dL (70-99) Calcium Level 8.3 mg/dL (8.5-10.1) Vancomycin Level Trough 13.2 mcg/mL (10.0-20.0) Vancomycin Last Dose Date 01/24/18 Vancomycin Last Dose Time 1200 Review of Systems Review of Systems Pt denies foot pain, chest pain, SOB, changes in bladder/bowel habits The dressing on his foot was clean, dry and intact prior to being removed in preparation for a shower. Slight purulent discharge was noted Assessment and Plan Assessmemt and Plan Assessment: Left diabetic foot cellulitis/osteomyelitis Acute leukocytosis Acute hyperglycemia H/o DM H/o PAD H/o MRSA H/o cognitive disability H/o HTN H/o hypothyroidism H/o amputation (2 toes on left foot) Plan: Follow ortho recommendation Cont IV abx Wound care Labs Home meds DTV ppx PT/OT Comment Review of Relevant I have reviewed the following items billy (where applicable) has been applied. Labs Laboratory Tests Test 01/23/18 17:22 01/23/18 17:40 01/23/18 18:10 01/24/18 03:05 Glucose (Fingerstick) 109 mg/dL (70-99) White Blood Count 9.4 x10^3/uL (4.0-11.0) 8.7 x10^3/uL (4.0-11.0) Red Blood Count 3.98 x10^6/uL (4.30-5.70) 3.63 x10^6/uL (4.30-5.70) Hemoglobin 12.9 g/dL (13.0-17.5) 11.9 g/dL (13.0-17.5) Hematocrit 36.0 % (39.0-53.0) 32.8 % (39.0-53.0) Mean Corpuscular Volume 91 fL (79-100) 90 fL (79-100) Mean Corpuscular Hemoglobin 33 pg (25-35) 33 pg (25-35) Mean Corpuscular Hemoglobin Concent 36 g/dL (31-37) 36 g/dL (31-37) Red Cell Distribution Width 13.3 % (11.5-14.5) 13.4 % (11.5-14.5) Platelet Count 272 x10^3/uL (140-400) 250 x10^3/uL (140-400) Neutrophils (%) (Auto) 49 % (31-73) Lymphocytes (%) (Auto) 33 % (24-48) Monocytes (%) (Auto) 8 % (0-9) Eosinophils (%) (Auto) 9 % (0-3) Basophils (%) (Auto) 1 % (0-3) Neutrophils # (Auto) 4.6 x10^3uL (1.8-7.7) Lymphocytes # (Auto) 3.1 x10^3/uL (1.0-4.8) Monocytes # (Auto) 0.8 x10^3/uL (0.0-1.1) Eosinophils # (Auto) 0.8 x10^3/uL (0.0-0.7) Basophils # (Auto) 0.1 x10^3/uL (0.0-0.2) Sodium Level 143 mmol/L (136-145) Potassium Level 4.1 mmol/L (3.5-5.1) Chloride Level 106 mmol/L (98-107) Carbon Dioxide Level 27 mmol/L (21-32) Anion Gap 10 (6-14) Blood Urea Nitrogen 35 mg/dL (8-26) Creatinine 1.1 mg/dL (0.7-1.3) Estimated GFR (Cockcroft-Gault) 67.0 BUN/Creatinine Ratio 32 (6-20) Glucose Level 134 mg/dL (70-99) Lactic Acid Level 1.2 mmol/L (0.4-2.0) Calcium Level 9.0 mg/dL (8.5-10.1) Total Bilirubin 0.6 mg/dL (0.2-1.0) Aspartate Amino Transf (AST/SGOT) 18 U/L (15-37) Alanine Aminotransferase (ALT/SGPT) 26 U/L (16-63) Alkaline Phosphatase 181 U/L (46-116) Total Protein 8.8 g/dL (6.4-8.2) Albumin 3.4 g/dL (3.4-5.0) Albumin/Globulin Ratio 0.6 (1.0-1.7) Urine Collection Type Unknown Urine Color Yellow Urine Clarity Clear Urine pH 5.0 Urine Specific Gray 1.020 Urine Protein Negative mg/dL (NEG-TRACE) Urine Glucose (UA) Negative mg/dL (NEG) Urine Ketones (Stick) Negative mg/dL (NEG) Urine Blood Negative (NEG) Urine Nitrite Negative (NEG) Urine Bilirubin Negative (NEG) Urine Urobilinogen Dipstick 0.2 mg/dL (0.2 mg/dL) Urine Leukocyte Esterase Negative (NEG) Urine RBC 1-2 /HPF (0-2) Urine WBC 0 /HPF (0-4) Urine Squamous Epithelial Cells Few /LPF Urine Bacteria 0 /HPF (0-FEW) Urine Hyaline Casts Few /HPF Urine Mucus Slight /LPF Test 01/24/18 08:00 01/24/18 11:35 01/24/18 16:26 01/24/18 20:31 Glucose (Fingerstick) 118 mg/dL (70-99) 146 mg/dL (70-99) 113 mg/dL (70-99) 108 mg/dL (70-99) Test 01/25/18 05:45 White Blood Count 7.7 x10^3/uL (4.0-11.0) Red Blood Count 3.78 x10^6/uL (4.30-5.70) Hemoglobin 12.1 g/dL (13.0-17.5) Hematocrit 34.1 % (39.0-53.0) Mean Corpuscular Volume 90 fL (79-100) Mean Corpuscular Hemoglobin 32 pg (25-35) Mean Corpuscular Hemoglobin Concent 36 g/dL (31-37) Red Cell Distribution Width 13.5 % (11.5-14.5) Platelet Count 234 x10^3/uL (140-400) Neutrophils (%) (Auto) 48 % (31-73) Lymphocytes (%) (Auto) 32 % (24-48) Monocytes (%) (Auto) 9 % (0-9) Eosinophils (%) (Auto) 10 % (0-3) Basophils (%) (Auto) 1 % (0-3) Neutrophils # (Auto) 3.7 x10^3uL (1.8-7.7) Lymphocytes # (Auto) 2.4 x10^3/uL (1.0-4.8) Monocytes # (Auto) 0.7 x10^3/uL (0.0-1.1) Eosinophils # (Auto) 0.8 x10^3/uL (0.0-0.7) Basophils # (Auto) 0.1 x10^3/uL (0.0-0.2) Sodium Level 145 mmol/L (136-145) Potassium Level 3.8 mmol/L (3.5-5.1) Chloride Level 109 mmol/L (98-107) Carbon Dioxide Level 27 mmol/L (21-32) Anion Gap 9 (6-14) Blood Urea Nitrogen 21 mg/dL (8-26) Creatinine 1.0 mg/dL (0.7-1.3) Estimated GFR (Cockcroft-Gault) 74.8 Glucose Level 111 mg/dL (70-99) Calcium Level 8.3 mg/dL (8.5-10.1) Vancomycin Level Trough 13.2 mcg/mL (10.0-20.0) Vancomycin Last Dose Date 01/24/18 Vancomycin Last Dose Time 1200 Laboratory Tests Test 01/24/18 11:35 01/24/18 16:26 01/24/18 20:31 01/25/18 05:45 Glucose (Fingerstick) 146 mg/dL (70-99) 113 mg/dL (70-99) 108 mg/dL (70-99) White Blood Count 7.7 x10^3/uL (4.0-11.0) Red Blood Count 3.78 x10^6/uL (4.30-5.70) Hemoglobin 12.1 g/dL (13.0-17.5) Hematocrit 34.1 % (39.0-53.0) Mean Corpuscular Volume 90 fL (79-100) Mean Corpuscular Hemoglobin 32 pg (25-35) Mean Corpuscular Hemoglobin Concent 36 g/dL (31-37) Red Cell Distribution Width 13.5 % (11.5-14.5) Platelet Count 234 x10^3/uL (140-400) Neutrophils (%) (Auto) 48 % (31-73) Lymphocytes (%) (Auto) 32 % (24-48) Monocytes (%) (Auto) 9 % (0-9) Eosinophils (%) (Auto) 10 % (0-3) Basophils (%) (Auto) 1 % (0-3) Neutrophils # (Auto) 3.7 x10^3uL (1.8-7.7) Lymphocytes # (Auto) 2.4 x10^3/uL (1.0-4.8) Monocytes # (Auto) 0.7 x10^3/uL (0.0-1.1) Eosinophils # (Auto) 0.8 x10^3/uL (0.0-0.7) Basophils # (Auto) 0.1 x10^3/uL (0.0-0.2) Sodium Level 145 mmol/L (136-145) Potassium Level 3.8 mmol/L (3.5-5.1) Chloride Level 109 mmol/L (98-107) Carbon Dioxide Level 27 mmol/L (21-32) Anion Gap 9 (6-14) Blood Urea Nitrogen 21 mg/dL (8-26) Creatinine 1.0 mg/dL (0.7-1.3) Estimated GFR (Cockcroft-Gault) 74.8 Glucose Level 111 mg/dL (70-99) Calcium Level 8.3 mg/dL (8.5-10.1) Vancomycin Level Trough 13.2 mcg/mL (10.0-20.0) Vancomycin Last Dose Date 01/24/18 Vancomycin Last Dose Time 1200 Microbiology 01/23/18 Blood Culture - Preliminary, Resulted NO GROWTH AFTER 1 DAY Medications Current Medications Vancomycin HCl (Vanco Per Pharmacy) 1 each PRN DAILY PRN MC SEE COMMENTS Last administered on 01/25/18at 07:09; Start 01/23/18 at 17:15 Meropenem 500 mg/ Sodium Chloride 50 ml @ 100 mls/hr Q8HRS IV Last administered on 01/25/18at 05:30; Start 01/23/18 at 22:00 Sodium Chloride 1,000 ml @ 75 mls/hr [id number] IV ; Start 01/23/18 at 17:15; Status Cancel Insulin Human Lispro (HumaLOG) 0-5 UNITS TIDWMEALS SQ ; Start 01/23/18 at 17:30 Dextrose (Dextrose 50%-Water Syringe) 12.5 gm PRN Q15MIN PRN IV SEE COMMENTS; Start 01/23/18 at 17:15 Vancomycin HCl 1.75 gm/Sodium Chloride 500 ml @ 250 mls/hr 1X ONCE IV Last administered on 01/23/18at 17:58; Start 01/23/18 at 17:30; Stop 01/23/18 at 19 :29; Status DC Meropenem 500 mg/ Sodium Chloride 50 ml @ 100 mls/hr 1X ONCE IV Last administered on 01/23/18at 17:57; Start 01/23/18 at 17:30; Stop 01/23/18 at 17 :59; Status DC Acetaminophen (Tylenol) 650 mg PRN Q4HRS PO ; Start 01/23/18 at 17:15; Status UNV Amlodipine Besylate (Norvasc) 10 mg BID PO Last administered on 01/24/18at 21: 41; Start 01/23/18 at 21:00 Ascorbic Acid (Vitamin C) 500 mg DAILY PO Last administered on 01/24/18at 08:28 ; Start 01/24/18 at 09:00 Aspirin (Ecotrin) 81 mg DAILY PO Last administered on 01/24/18at 08:29; Start 01/24/18 at 09:00 Clopidogrel Bisulfate (Plavix) 75 mg DAILY PO Last administered on 01/24/18at 08:29; Start 01/24/18 at 09:00 Glipizide (Glucotrol) 5 mg BIDAC PO Last administered on 01/25/18at 07:56; Start 01/24/18 at 07:30 Lisinopril (Prinivil) 40 mg BID PO Last administered on 01/24/18at 21:40; Start 01/23/18 at 21:00 Metoprolol Tartrate (Lopressor) 25 mg DAILY PO Last administered on 01/24/18at 08:29; Start 01/24/18 at 09:00 Hydrochlorothiazide (Microzide) 12.5 mg DAILY PO Last administered on at 08:29; Start 01/24/18 at 09:00 Levothyroxine Sodium (Synthroid) 25 mcg DAILY06 PO Last administered on 06:10; Start 01/24/18 at 06:00 Metformin HCl (Glucophage) 500 mg BIDWMEALS PO Last administered on 01/25/18 07:56; Start 01/23/18 at 18:00 Multivitamins/ Minerals (I-Erica) 1 tab DAILY PO Last administered on 08:29; Start 01/24/18 at 09:00 Sodium Chloride (Normal Saline Flush 3ml) 3 ml QSHIFT PRN IV AFTER MEDS AND BLOOD DRAWS; Start 01/23/18 at 17:30 Sodium Chloride 1,000 ml @ 100 mls/hr Q10H IV Last administered on 01/25/18at 06:11; Start 01/23/18 at 18:00 Ondansetron HCl (Zofran) 4 mg PRN Q4HRS PRN IV NAUSEA/VOMITING; Start at 17:30 Acetaminophen (Tylenol) 650 mg PRN Q4HRS PRN PO TEMP OVER 100.4F OR MILD PAIN; Start 01/23/18 at 17:30 Al Hydroxide/Mg Hydroxide (Mylanta Plus Xs) 30 ml PRN DAILY PRN PO HEARTBURN / GAS; Start 01/23/18 at 17:30 Sodium Monofluorophosphate (Fleet Adult) 133 ml PRN DAILY PRN [place] CONSTIPATION; Start 01/23/18 at 17:30 Docusate Sodium (Colace) 100 mg PRN BID PRN PO CONSTIPATION; Start 01/23/18 at 17:30 Albuterol Sulfate (Ventolin Neb Soln) 2.5 mg PRN Q4HRS PRN NEB SHORTNESS OF BREATH; Start 01/23/18 at 17:30 Guaifenesin (Robitussin) 200 mg PRN Q4HRS PRN PO COUGH Last administered on at 05:47; Start 01/23/18 at 17:30 Enoxaparin Sodium (Lovenox 40mg Syringe) 40 mg DAILY SQ ; Start 01/24/18 at 09: 00 Vancomycin HCl 1 gm/Dextrose 250 ml @ 250 mls/hr 1X ONCE IV ; Start 01/23/18 at 17:30; Stop 01/23/18 at 18:29; Status UNV Vancomycin HCl (Vanco Per Pharmacy) 1 each PRN DAILY PRN MC SEE COMMENTS; Start 01/23/18 at 17:30; Status UNV Acetaminophen/ Hydrocodone Bitart (Lortab 5/325) 1 tab PRN Q6HRS PRN PO PAIN; Start 01/23/18 at 18:30 Vancomycin HCl 1.25 gm/Sodium Chloride 250 ml @ 250 mls/hr Q18H IV Last administered on 01/25/18at 07:25; Start 01/24/18 at 12:00; Stop 01/25/18 at 09 :00; Status DC Vancomycin HCl (Vancomycin Trough Level) 1 each 1X ONCE MC Last administered on 01/25/18at 06:30; Start 01/25/18 at 05:30; Stop 01/25/18 at 05:31; Status DC Lactobacillus Rhamnosus (Culturelle) 1 cap BID PO Last administered on at 21:40; Start 01/24/18 at 21:00 Vancomycin HCl 1.25 gm/Sodium Chloride 250 ml @ 250 mls/hr Q12H IV ; Start at 20:00 Active Scripts Active Reported Ascorbic Acid 500 Mg Tablet 500 Mg PO Metoprolol Tartrate 25 Mg Tablet 1 Tab PO DAILY Hydrochlorothiazide Capsule (Hydrochlorothiazide) 12.5 Mg Capsule 1 Cap PO DAILY Glipizide 5 Mg Tablet 1 Tab PO BID Clopidogrel (Clopidogrel Bisulfate) 75 Mg Tablet 1 Tab PO DAILY Multi-Vitamin Daily (Multivitamin) 1 Each Tablet 1 Each PO Tylenol (Acetaminophen) 325 Mg Tablet 2 Tab PO PRN Q4HRS Metformin Hcl 500 Mg Tablet 1 Tab PO BID Lisinopril 20 Mg Tablet 2 Tab PO BID Levothyroxine Sodium 25 Mcg Tablet 1 Tab PO DAILY Aspir 81 (Aspirin) 81 Mg Tablet.dr 1 Tab PO DAILY Amlodipine Besylate 5 Mg Tablet 10 Mg PO BID Vitals/I & O Vital Sign - Last 24 Hours 01/24/18 01/24/18 01/24/18 01/24/18 11:00 15:00 19:48 19:50 Temp 98.1 97.6 97.8 98.1 97.6 97.8 Pulse 60 72 70 Resp 16 17 16 B/P (MAP) 118/54 (75) 136/63 (87) 126/55 (78) Pulse Ox 99 98 96 O2 Delivery Room Air Room Air Room Air Room Air 01/24/18 01/24/18 01/24/18 01/25/18 21:40 21:41 22:20 02:58 Temp 98.9 98.9 Pulse 70 70 73 78 Resp 16 18 B/P (MAP) 126/55 126/55 124/51 (75) 129/51 (77) Pulse Ox 96 97 O2 Delivery Room Air Room Air 01/25/18 07:00 Temp 97.9 97.9 Pulse 64 Resp 16 B/P (MAP) 130/50 (76) Pulse Ox 98 O2 Delivery Room Air Intake and Output 01/24/18 01/24/18 01/25/18 15:00 23:00 07:00 Intake Total 240 ml 2740 ml Output Total 300 ml Balance -300 ml 240 ml 2740 ml ERIKA REEVES III DO Jan 25, 2018 09:39
--- NOTE | 2018-01-25 10:01 | PDOC ---
Infectious Disease Note Subjective Subjective feeling good says TELLO JAVED no n/v/d/sob/fever Vital Sign Vital Signs Vital Signs Date Time Temp Pulse Resp B/P (MAP) Pulse Ox O2 Delivery O2 Flow Rate FiO2 01/25/18 09:28 64 130/50 01/25/18 07:00 97.9 16 98 Room Air 97.9 Physical Exam PHYSICAL EXAM GENERAL: Alert, oriented gentleman, not in distress. VITAL SIGNS: Stable, afebrile. HEENT: NAD. NECK: Supple, no JVP, no lymphadenopathy. LUNGS: Clear. HEART: S1, S2 regular. ABDOMEN: Benign. EXTREMITIES: The patient has left lower extremity first toe amputation, which has nicely healed. The patient has third toe partially amputated where the drainage is coming out. Does have mild edema, dorsalis pedis is weakly palpable. NEUROLOGIC: The patient is neurologically intact. Labs Lab Laboratory Tests Test 01/24/18 11:35 01/24/18 16:26 01/24/18 20:31 01/25/18 05:45 Glucose (Fingerstick) 146 mg/dL (70-99) 113 mg/dL (70-99) 108 mg/dL (70-99) White Blood Count 7.7 x10^3/uL (4.0-11.0) Red Blood Count 3.78 x10^6/uL (4.30-5.70) Hemoglobin 12.1 g/dL (13.0-17.5) Hematocrit 34.1 % (39.0-53.0) Mean Corpuscular Volume 90 fL (79-100) Mean Corpuscular Hemoglobin 32 pg (25-35) Mean Corpuscular Hemoglobin Concent 36 g/dL (31-37) Red Cell Distribution Width 13.5 % (11.5-14.5) Platelet Count 234 x10^3/uL (140-400) Neutrophils (%) (Auto) 48 % (31-73) Lymphocytes (%) (Auto) 32 % (24-48) Monocytes (%) (Auto) 9 % (0-9) Eosinophils (%) (Auto) 10 % (0-3) Basophils (%) (Auto) 1 % (0-3) Neutrophils # (Auto) 3.7 x10^3uL (1.8-7.7) Lymphocytes # (Auto) 2.4 x10^3/uL (1.0-4.8) Monocytes # (Auto) 0.7 x10^3/uL (0.0-1.1) Eosinophils # (Auto) 0.8 x10^3/uL (0.0-0.7) Basophils # (Auto) 0.1 x10^3/uL (0.0-0.2) Sodium Level 145 mmol/L (136-145) Potassium Level 3.8 mmol/L (3.5-5.1) Chloride Level 109 mmol/L (98-107) Carbon Dioxide Level 27 mmol/L (21-32) Anion Gap 9 (6-14) Blood Urea Nitrogen 21 mg/dL (8-26) Creatinine 1.0 mg/dL (0.7-1.3) Estimated GFR (Cockcroft-Gault) 74.8 Glucose Level 111 mg/dL (70-99) Calcium Level 8.3 mg/dL (8.5-10.1) Vancomycin Level Trough 13.2 mcg/mL (10.0-20.0) Vancomycin Last Dose Date 01/24/18 Vancomycin Last Dose Time 1200 Test 01/25/18 07:41 Glucose (Fingerstick) 115 mg/dL (70-99) Micro Microbiology 01/23/18 Blood Culture - Preliminary, Resulted NO GROWTH AFTER 1 DAY Objective Assessment Osteomyelitis of 3 rd met DM PAD HTN Plan Plan of Care vanc and meropenem ortho input pending supportive care JUSTINA ROSSI MD Jan 25, 2018 10:01
[2018-01-25 11:00] VITALS: BP 135/66
--- NOTE | 2018-01-25 12:06 | PDOC2 ---
CONSULT Date of Consult Date of Consult DATE: 01/25/18 TIME: 11:59 History of Present Illness Reason for Visit: Hai is a 67-year-old male that had previously been treated in the podiatry clinic and 3 weeks prior to his admission in November from the emergency department had undergone debridement in the podiatry clinic and subsequent wound care clinic care then with osteomyelitis and an operative procedure on his foot by Dr. Mcnair. At that time some vascular studies were recommended but apparently not carried out he subsequently underwent additional wound care follow-up and now is admitted with osteomyelitis of his foot. Given that the previously recommended vascular evaluation and studies were not completed prior , I have ordered a vascular consult at this time and further treatment can be based on those recommendations. If further surgery is indicated beyond anything that vascular surgery once to do, I would defer to podiatry for further treatment as they were initially treating in the office and administering wound care prior to the November emergent treatment by Dr. Mcnair. Past Medical History Cardiovascular: HTN, Hyperlipidemia, Other Pulmonary: No pertinent hx CENTRAL NERVOUS SYSTEM: Periperal neuropathy GI: No pertinent hx Heme/Onc: No pertinent hx Musculoskeletal: Osteoarthritis Rheumatologic: No pertinent hx Infectious disease: No pertinent hx Renal/: No pertinent hx Endocrine: Diabetes, Hypothyroidism Past Surgical History Past Surgical History: Other (I&D left foot) Family History Family History: Coronary Artery Disease, Heart Disease Social History No ALCOHOL: none Drugs: None Lives: Alone Current Medications Current Medications Current Medications Vancomycin HCl (Vanco Per Pharmacy) 1 each PRN DAILY PRN MC SEE COMMENTS Last administered on 01/25/18at 07:09; Start 01/23/18 at 17:15 Meropenem 500 mg/ Sodium Chloride 50 ml @ 100 mls/hr Q8HRS IV Last administered on 01/25/18at 05:30; Start 01/23/18 at 22:00 Sodium Chloride 1,000 ml @ 75 mls/hr [id number] IV ; Start 01/23/18 at 17:15; Status Cancel Insulin Human Lispro (HumaLOG) 0-5 UNITS TIDWMEALS SQ ; Start 01/23/18 at 17:30 Dextrose (Dextrose 50%-Water Syringe) 12.5 gm PRN Q15MIN PRN IV SEE COMMENTS; Start 01/23/18 at 17:15 Vancomycin HCl 1.75 gm/Sodium Chloride 500 ml @ 250 mls/hr 1X ONCE IV Last administered on 01/23/18at 17:58; Start 01/23/18 at 17:30; Stop 01/23/18 at 19 :29; Status DC Meropenem 500 mg/ Sodium Chloride 50 ml @ 100 mls/hr 1X ONCE IV Last administered on 01/23/18at 17:57; Start 01/23/18 at 17:30; Stop 01/23/18 at 17 :59; Status DC Acetaminophen (Tylenol) 650 mg PRN Q4HRS PO ; Start 01/23/18 at 17:15; Status UNV Amlodipine Besylate (Norvasc) 10 mg BID PO Last administered on 01/25/18 09: 27; Start 01/23/18 at 21:00 Ascorbic Acid (Vitamin C) 500 mg DAILY PO Last administered on 01/25/18 09:27 ; Start 01/24/18 at 09:00 Aspirin (Ecotrin) 81 mg DAILY PO Last administered on 01/25/18 09:34; Start 01/24/18 at 09:00 Clopidogrel Bisulfate (Plavix) 75 mg DAILY PO Last administered on 01/25/18 09:26; Start 01/24/18 at 09:00 Glipizide (Glucotrol) 5 mg BIDAC PO Last administered on 01/25/18 07:56; Start 01/24/18 at 07:30 Lisinopril (Prinivil) 40 mg BID PO Last administered on 01/25/18 09:26; Start 01/23/18 at 21:00 Metoprolol Tartrate (Lopressor) 25 mg DAILY PO Last administered on 01/25/18 09:28; Start 01/24/18 at 09:00 Hydrochlorothiazide (Microzide) 12.5 mg DAILY PO Last administered on 09:25; Start 01/24/18 at 09:00 Levothyroxine Sodium (Synthroid) 25 mcg DAILY06 PO Last administered on 06:10; Start 01/24/18 at 06:00 Metformin HCl (Glucophage) 500 mg BIDWMEALS PO Last administered on 01/25/18 07:56; Start 01/23/18 at 18:00 Multivitamins/ Minerals (I-Erica) 1 tab DAILY PO Last administered on at 09:25; Start 01/24/18 at 09:00 Sodium Chloride (Normal Saline Flush 3ml) 3 ml QSHIFT PRN IV AFTER MEDS AND BLOOD DRAWS; Start 01/23/18 at 17:30 Sodium Chloride 1,000 ml @ 100 mls/hr Q10H IV Last administered on 01/25/18at 06:11; Start 01/23/18 at 18:00 Ondansetron HCl (Zofran) 4 mg PRN Q4HRS PRN IV NAUSEA/VOMITING; Start at 17:30 Acetaminophen (Tylenol) 650 mg PRN Q4HRS PRN PO TEMP OVER 100.4F OR MILD PAIN; Start 01/23/18 at 17:30 Al Hydroxide/Mg Hydroxide (Mylanta Plus Xs) 30 ml PRN DAILY PRN PO HEARTBURN / GAS; Start 01/23/18 at 17:30 Sodium Monofluorophosphate (Fleet Adult) 133 ml PRN DAILY PRN SD CONSTIPATION; Start 01/23/18 at 17:30 Docusate Sodium (Colace) 100 mg PRN BID PRN PO CONSTIPATION; Start 01/23/18 at 17:30 Albuterol Sulfate (Ventolin Neb Soln) 2.5 mg PRN Q4HRS PRN NEB SHORTNESS OF BREATH; Start 01/23/18 at 17:30 Guaifenesin (Robitussin) 200 mg PRN Q4HRS PRN PO COUGH Last administered on at 05:47; Start 01/23/18 at 17:30 Enoxaparin Sodium (Lovenox 40mg Syringe) 40 mg DAILY SQ ; Start 01/24/18 at 09: 00 Vancomycin HCl 1 gm/Dextrose 250 ml @ 250 mls/hr 1X ONCE IV ; Start 01/23/18 at 17:30; Stop 01/23/18 at 18:29; Status UNV Vancomycin HCl (Vanco Per Pharmacy) 1 each PRN DAILY PRN MC SEE COMMENTS; Start 01/23/18 at 17:30; Status UNV Acetaminophen/ Hydrocodone Bitart (Lortab 5/325) 1 tab PRN Q6HRS PRN PO PAIN; Start 01/23/18 at 18:30 Vancomycin HCl 1.25 gm/Sodium Chloride 250 ml @ 250 mls/hr Q18H IV Last administered on 01/25/18at 07:25; Start 01/24/18 at 12:00; Stop 01/25/18 at 09 :00; Status DC Vancomycin HCl (Vancomycin Trough Level) 1 each 1X ONCE MC Last administered on 01/25/18at 06:30; Start 01/25/18 at 05:30; Stop 01/25/18 at 05:31; Status DC Lactobacillus Rhamnosus (Culturelle) 1 cap BID PO Last administered on at 09:27; Start 01/24/18 at 21:00 Vancomycin HCl 1.25 gm/Sodium Chloride 250 ml @ 250 mls/hr Q12H IV ; Start at 20:00 Active Scripts Active Reported Ascorbic Acid 500 Mg Tablet 500 Mg PO Metoprolol Tartrate 25 Mg Tablet 1 Tab PO DAILY Hydrochlorothiazide Capsule (Hydrochlorothiazide) 12.5 Mg Capsule 1 Cap PO DAILY Glipizide 5 Mg Tablet 1 Tab PO BID Clopidogrel (Clopidogrel Bisulfate) 75 Mg Tablet 1 Tab PO DAILY Multi-Vitamin Daily (Multivitamin) 1 Each Tablet 1 Each PO Tylenol (Acetaminophen) 325 Mg Tablet 2 Tab PO PRN Q4HRS Metformin Hcl 500 Mg Tablet 1 Tab PO BID Lisinopril 20 Mg Tablet 2 Tab PO BID Levothyroxine Sodium 25 Mcg Tablet 1 Tab PO DAILY Aspir 81 (Aspirin) 81 Mg Tablet. 1 Tab PO DAILY Amlodipine Besylate 5 Mg Tablet 10 Mg PO BID Allergies Allergies: Coded Allergies: I S O L A T I O N *CONTACT* (Verified Allergy, Unknown, 11/20/17) mrsa No Known Medication Allergies (Verified Allergy, Unknown, 11/20/17) Vitals VITALS Vital Signs Date Time Temp Pulse Resp B/P (MAP) Pulse Ox O2 Delivery O2 Flow Rate FiO2 01/25/18 09:28 64 130/50 01/25/18 07:00 97.9 16 98 Room Air 97.9 Labs Labs Laboratory Tests Test 01/23/18 17:22 01/23/18 17:40 01/23/18 18:10 01/24/18 03:05 Glucose (Fingerstick) 109 mg/dL (70-99) White Blood Count 9.4 x10^3/uL (4.0-11.0) 8.7 x10^3/uL (4.0-11.0) Red Blood Count 3.98 x10^6/uL (4.30-5.70) 3.63 x10^6/uL (4.30-5.70) Hemoglobin 12.9 g/dL (13.0-17.5) 11.9 g/dL (13.0-17.5) Hematocrit 36.0 % (39.0-53.0) 32.8 % (39.0-53.0) Mean Corpuscular Volume 91 fL (79-100) 90 fL (79-100) Mean Corpuscular Hemoglobin 33 pg (25-35) 33 pg (25-35) Mean Corpuscular Hemoglobin Concent 36 g/dL (31-37) 36 g/dL (31-37) Red Cell Distribution Width 13.3 % (11.5-14.5) 13.4 % (11.5-14.5) Platelet Count 272 x10^3/uL (140-400) 250 x10^3/uL (140-400) Neutrophils (%) (Auto) 49 % (31-73) Lymphocytes (%) (Auto) 33 % (24-48) Monocytes (%) (Auto) 8 % (0-9) Eosinophils (%) (Auto) 9 % (0-3) Basophils (%) (Auto) 1 % (0-3) Neutrophils # (Auto) 4.6 x10^3uL (1.8-7.7) Lymphocytes # (Auto) 3.1 x10^3/uL (1.0-4.8) Monocytes # (Auto) 0.8 x10^3/uL (0.0-1.1) Eosinophils # (Auto) 0.8 x10^3/uL (0.0-0.7) Basophils # (Auto) 0.1 x10^3/uL (0.0-0.2) Sodium Level 143 mmol/L (136-145) Potassium Level 4.1 mmol/L (3.5-5.1) Chloride Level 106 mmol/L (98-107) Carbon Dioxide Level 27 mmol/L (21-32) Anion Gap 10 (6-14) Blood Urea Nitrogen 35 mg/dL (8-26) Creatinine 1.1 mg/dL (0.7-1.3) Estimated GFR (Cockcroft-Gault) 67.0 BUN/Creatinine Ratio 32 (6-20) Glucose Level 134 mg/dL (70-99) Lactic Acid Level 1.2 mmol/L (0.4-2.0) Calcium Level 9.0 mg/dL (8.5-10.1) Total Bilirubin 0.6 mg/dL (0.2-1.0) Aspartate Amino Transf (AST/SGOT) 18 U/L (15-37) Alanine Aminotransferase (ALT/SGPT) 26 U/L (16-63) Alkaline Phosphatase 181 U/L (46-116) Total Protein 8.8 g/dL (6.4-8.2) Albumin 3.4 g/dL (3.4-5.0) Albumin/Globulin Ratio 0.6 (1.0-1.7) Urine Collection Type Unknown Urine Color Yellow Urine Clarity Clear Urine pH 5.0 Urine Specific Harmony 1.020 Urine Protein Negative mg/dL (NEG-TRACE) Urine Glucose (UA) Negative mg/dL (NEG) Urine Ketones (Stick) Negative mg/dL (NEG) Urine Blood Negative (NEG) Urine Nitrite Negative (NEG) Urine Bilirubin Negative (NEG) Urine Urobilinogen Dipstick 0.2 mg/dL (0.2 mg/dL) Urine Leukocyte Esterase Negative (NEG) Urine RBC 1-2 /HPF (0-2) Urine WBC 0 /HPF (0-4) Urine Squamous Epithelial Cells Few /LPF Urine Bacteria 0 /HPF (0-FEW) Urine Hyaline Casts Few /HPF Urine Mucus Slight /LPF Test 01/24/18 08:00 01/24/18 11:35 01/24/18 16:26 01/24/18 20:31 Glucose (Fingerstick) 118 mg/dL (70-99) 146 mg/dL (70-99) 113 mg/dL (70-99) 108 mg/dL (70-99) Test 01/25/18 05:45 01/25/18 07:41 01/25/18 11:28 White Blood Count 7.7 x10^3/uL (4.0-11.0) Red Blood Count 3.78 x10^6/uL (4.30-5.70) Hemoglobin 12.1 g/dL (13.0-17.5) Hematocrit 34.1 % (39.0-53.0) Mean Corpuscular Volume 90 fL (79-100) Mean Corpuscular Hemoglobin 32 pg (25-35) Mean Corpuscular Hemoglobin Concent 36 g/dL (31-37) Red Cell Distribution Width 13.5 % (11.5-14.5) Platelet Count 234 x10^3/uL (140-400) Neutrophils (%) (Auto) 48 % (31-73) Lymphocytes (%) (Auto) 32 % (24-48) Monocytes (%) (Auto) 9 % (0-9) Eosinophils (%) (Auto) 10 % (0-3) Basophils (%) (Auto) 1 % (0-3) Neutrophils # (Auto) 3.7 x10^3uL (1.8-7.7) Lymphocytes # (Auto) 2.4 x10^3/uL (1.0-4.8) Monocytes # (Auto) 0.7 x10^3/uL (0.0-1.1) Eosinophils # (Auto) 0.8 x10^3/uL (0.0-0.7) Basophils # (Auto) 0.1 x10^3/uL (0.0-0.2) Sodium Level 145 mmol/L (136-145) Potassium Level 3.8 mmol/L (3.5-5.1) Chloride Level 109 mmol/L (98-107) Carbon Dioxide Level 27 mmol/L (21-32) Anion Gap 9 (6-14) Blood Urea Nitrogen 21 mg/dL (8-26) Creatinine 1.0 mg/dL (0.7-1.3) Estimated GFR (Cockcroft-Gault) 74.8 Glucose Level 111 mg/dL (70-99) Calcium Level 8.3 mg/dL (8.5-10.1) Vancomycin Level Trough 13.2 mcg/mL (10.0-20.0) Vancomycin Last Dose Date 01/24/18 Vancomycin Last Dose Time 1200 Glucose (Fingerstick) 115 mg/dL (70-99) 151 mg/dL (70-99) Laboratory Tests Test 01/24/18 16:26 01/24/18 20:31 01/25/18 05:45 01/25/18 07:41 Glucose (Fingerstick) 113 mg/dL (70-99) 108 mg/dL (70-99) 115 mg/dL (70-99) White Blood Count 7.7 x10^3/uL (4.0-11.0) Red Blood Count 3.78 x10^6/uL (4.30-5.70) Hemoglobin 12.1 g/dL (13.0-17.5) Hematocrit 34.1 % (39.0-53.0) Mean Corpuscular Volume 90 fL (79-100) Mean Corpuscular Hemoglobin 32 pg (25-35) Mean Corpuscular Hemoglobin Concent 36 g/dL (31-37) Red Cell Distribution Width 13.5 % (11.5-14.5) Platelet Count 234 x10^3/uL (140-400) Neutrophils (%) (Auto) 48 % (31-73) Lymphocytes (%) (Auto) 32 % (24-48) Monocytes (%) (Auto) 9 % (0-9) Eosinophils (%) (Auto) 10 % (0-3) Basophils (%) (Auto) 1 % (0-3) Neutrophils # (Auto) 3.7 x10^3uL (1.8-7.7) Lymphocytes # (Auto) 2.4 x10^3/uL (1.0-4.8) Monocytes # (Auto) 0.7 x10^3/uL (0.0-1.1) Eosinophils # (Auto) 0.8 x10^3/uL (0.0-0.7) Basophils # (Auto) 0.1 x10^3/uL (0.0-0.2) Sodium Level 145 mmol/L (136-145) Potassium Level 3.8 mmol/L (3.5-5.1) Chloride Level 109 mmol/L (98-107) Carbon Dioxide Level 27 mmol/L (21-32) Anion Gap 9 (6-14) Blood Urea Nitrogen 21 mg/dL (8-26) Creatinine 1.0 mg/dL (0.7-1.3) Estimated GFR (Cockcroft-Gault) 74.8 Glucose Level 111 mg/dL (70-99) Calcium Level 8.3 mg/dL (8.5-10.1) Vancomycin Level Trough 13.2 mcg/mL (10.0-20.0) Vancomycin Last Dose Date 01/24/18 Vancomycin Last Dose Time 1200 Test 01/25/18 11:28 Glucose (Fingerstick) 151 mg/dL (70-99) DEVAUGHN SANTAMARIA MD Jan 25, 2018 12:06
--- NOTE | 2018-01-25 14:06 | PDOC2 ---
CONSULT Date of Consult Date of Consult DATE: 01/25/18 TIME: 13:21 Reason for Consult Reason for Consult: Diabetic foot wound Referring Physician Referring Physician: Vascular Surgery - CHAPARRITA Victoria - Leander Casillas MD Identification/Chief Complaint Chief Complaint Left Foot wound History of Present Illness Reason for Visit: Pt is a plesant 67 year old man with history of Diabetes who presented to the ER on 01/23/18 with a left foot wound. He reports this has been present for about a month after an incident with a digital printer was trimming his nails and callouses and reportedly "went in to my bone". He had undergone this debridement in the podiatry clinic with subsequent wound care clinic care then reportedly with osteomyelitis and an operative procedure on his foot. He also has a wound on the dorsal surface of his left foot between his two remaining toes that has been present for a shorter period of time. He has had 3 toes removed from his left foot for infection in the past. The plantar wound has been managed by wound care for about a month, pt attending once a week. Since hospitalized he has been seen by podiatry, ID and ortho who consulted us to evaluate the wound and for arterial disease. He is currently being treated for osteomyelitis of 3rd metatarsal, however I've failed to find any imaging supporting this dx. He denies any history of arterial disease or heart problems. He does not report any pain. Podiatry has suggested a TMA may be needed. Pt is currently ambulatory and full weight bearing on both feet. He denies any surgical history other than the toe amputations. His family history is significant for diabetes. Past Medical History Cardiovascular: HTN, Hyperlipidemia, Other Pulmonary: No pertinent hx CENTRAL NERVOUS SYSTEM: Periperal neuropathy GI: No pertinent hx Heme/Onc: No pertinent hx Musculoskeletal: Osteoarthritis Rheumatologic: No pertinent hx Infectious disease: No pertinent hx Renal/: No pertinent hx Endocrine: Diabetes, Hypothyroidism Past Surgical History Past Surgical History: Other (I&D left foot, left toe amputations) Family History Family History: Coronary Artery Disease, Diabetes, Heart Disease Social History No ALCOHOL: none Drugs: None Lives: Alone Current Medications Current Medications Current Medications Vancomycin HCl (Vanco Per Pharmacy) 1 each PRN DAILY PRN MC SEE COMMENTS Last administered on 01/25/18at 07:09; Start 01/23/18 at 17:15 Meropenem 500 mg/ Sodium Chloride 50 ml @ 100 mls/hr Q8HRS IV Last administered on 01/25/18at 05:30; Start 01/23/18 at 22:00 Sodium Chloride 1,000 ml @ 75 mls/hr [id number] IV ; Start 01/23/18 at 17:15; Status Cancel Insulin Human Lispro (HumaLOG) 0-5 UNITS TIDWMEALS SQ ; Start 01/23/18 at 17:30 Dextrose (Dextrose 50%-Water Syringe) 12.5 gm PRN Q15MIN PRN IV SEE COMMENTS; Start 01/23/18 at 17:15 Vancomycin HCl 1.75 gm/Sodium Chloride 500 ml @ 250 mls/hr 1X ONCE IV Last administered on 01/23/18at 17:58; Start 01/23/18 at 17:30; Stop 01/23/18 at 19 :29; Status DC Meropenem 500 mg/ Sodium Chloride 50 ml @ 100 mls/hr 1X ONCE IV Last administered on 01/23/18at 17:57; Start 01/23/18 at 17:30; Stop 01/23/18 at 17 :59; Status DC Acetaminophen (Tylenol) 650 mg PRN Q4HRS PO ; Start 01/23/18 at 17:15; Status UNV Amlodipine Besylate (Norvasc) 10 mg BID PO Last administered on 01/25/18at 09: 27; Start 01/23/18 at 21:00 Ascorbic Acid (Vitamin C) 500 mg DAILY PO Last administered on 01/25/18at 09:27 ; Start 01/24/18 at 09:00 Aspirin (Ecotrin) 81 mg DAILY PO Last administered on 01/25/18at 09:34; Start 01/24/18 at 09:00 Clopidogrel Bisulfate (Plavix) 75 mg DAILY PO Last administered on 01/25/18 09:26; Start 01/24/18 at 09:00 Glipizide (Glucotrol) 5 mg BIDAC PO Last administered on 01/25/18at 07:56; Start 01/24/18 at 07:30 Lisinopril (Prinivil) 40 mg BID PO Last administered on 01/25/18at 09:26; Start 01/23/18 at 21:00 Metoprolol Tartrate (Lopressor) 25 mg DAILY PO Last administered on 01/25/18 09:28; Start 01/24/18 at 09:00 Hydrochlorothiazide (Microzide) 12.5 mg DAILY PO Last administered on 09:25; Start 01/24/18 at 09:00 Levothyroxine Sodium (Synthroid) 25 mcg DAILY06 PO Last administered on 06:10; Start 01/24/18 at 06:00 Metformin HCl (Glucophage) 500 mg BIDWMEALS PO Last administered on 01/25/18 07:56; Start 01/23/18 at 18:00 Multivitamins/ Minerals (I-Erica) 1 tab DAILY PO Last administered on 09:25; Start 01/24/18 at 09:00 Sodium Chloride (Normal Saline Flush 3ml) 3 ml QSHIFT PRN IV AFTER MEDS AND BLOOD DRAWS; Start 01/23/18 at 17:30 Sodium Chloride 1,000 ml @ 100 mls/hr Q10H IV Last administered on 01/25/18at 06:11; Start 01/23/18 at 18:00 Ondansetron HCl (Zofran) 4 mg PRN Q4HRS PRN IV NAUSEA/VOMITING; Start at 17:30 Acetaminophen (Tylenol) 650 mg PRN Q4HRS PRN PO TEMP OVER 100.4F OR MILD PAIN; Start 01/23/18 at 17:30 Al Hydroxide/Mg Hydroxide (Mylanta Plus Xs) 30 ml PRN DAILY PRN PO HEARTBURN / GAS; Start 01/23/18 at 17:30 Sodium Monofluorophosphate (Fleet Adult) 133 ml PRN DAILY PRN [place] CONSTIPATION; Start 01/23/18 at 17:30 Docusate Sodium (Colace) 100 mg PRN BID PRN PO CONSTIPATION; Start 01/23/18 at 17:30 Albuterol Sulfate (Ventolin Neb Soln) 2.5 mg PRN Q4HRS PRN NEB SHORTNESS OF BREATH; Start 01/23/18 at 17:30 Guaifenesin (Robitussin) 200 mg PRN Q4HRS PRN PO COUGH Last administered on at 05:47; Start 01/23/18 at 17:30 Enoxaparin Sodium (Lovenox 40mg Syringe) 40 mg DAILY SQ ; Start 01/24/18 at 09: 00 Vancomycin HCl 1 gm/Dextrose 250 ml @ 250 mls/hr 1X ONCE IV ; Start 01/23/18 at 17:30; Stop 01/23/18 at 18:29; Status UNV Vancomycin HCl (Vanco Per Pharmacy) 1 each PRN DAILY PRN MC SEE COMMENTS; Start 01/23/18 at 17:30; Status UNV Acetaminophen/ Hydrocodone Bitart (Lortab 5/325) 1 tab PRN Q6HRS PRN PO PAIN; Start 01/23/18 at 18:30 Vancomycin HCl 1.25 gm/Sodium Chloride 250 ml @ 250 mls/hr Q18H IV Last administered on 01/25/18at 07:25; Start 01/24/18 at 12:00; Stop 01/25/18 at 09 :00; Status DC Vancomycin HCl (Vancomycin Trough Level) 1 each 1X ONCE MC Last administered on 01/25/18at 06:30; Start 01/25/18 at 05:30; Stop 01/25/18 at 05:31; Status DC Lactobacillus Rhamnosus (Culturelle) 1 cap BID PO Last administered on at 09:27; Start 01/24/18 at 21:00 Vancomycin HCl 1.25 gm/Sodium Chloride 250 ml @ 250 mls/hr Q12H IV ; Start at 20:00 Active Scripts Active Reported Ascorbic Acid 500 Mg Tablet 500 Mg PO Metoprolol Tartrate 25 Mg Tablet 1 Tab PO DAILY Hydrochlorothiazide Capsule (Hydrochlorothiazide) 12.5 Mg Capsule 1 Cap PO DAILY Glipizide 5 Mg Tablet 1 Tab PO BID Clopidogrel (Clopidogrel Bisulfate) 75 Mg Tablet 1 Tab PO DAILY Multi-Vitamin Daily (Multivitamin) 1 Each Tablet 1 Each PO Tylenol (Acetaminophen) 325 Mg Tablet 2 Tab PO PRN Q4HRS Metformin Hcl 500 Mg Tablet 1 Tab PO BID Lisinopril 20 Mg Tablet 2 Tab PO BID Levothyroxine Sodium 25 Mcg Tablet 1 Tab PO DAILY Aspir 81 (Aspirin) 81 Mg Tablet. 1 Tab PO DAILY Amlodipine Besylate 5 Mg Tablet 10 Mg PO BID Allergies Allergies: Coded Allergies: I S O L A T I O N *CONTACT* (Verified Allergy, Unknown, 11/20/17) mrsa No Known Medication Allergies (Verified Allergy, Unknown, 11/20/17) ROS General: No: Chills, Fatigue, Other (fever) HEENT: No: Heacaches Hematological and Lymphatic: No: Bleeding Problems, Blood Clots, Brusing Respiratory: No: Cough, Shortness of breath Cardiovascular: No Chest Pain Gastrointestinal: No Nausea, No Vomiting Musculoskeletal: No Gait Disturbance Skin: Yes Dry Skin, Yes Other (wound); No Mottling, No Nail Changes, No Rash Physical Exam General: Alert, Oriented X3, Cooperative HEENT: Atraumatic, PERRLA Lungs: Clear to auscultation, Normal air movement Heart: Regular rate, Normal S1, Normal S2, No murmurs, Other (Strong radial pulses BL, palpable pedal pulses on right, very weak left DP, unable to appreciate left PT. Both feet warm with good capillary refill and motor function. ) Abdomen: Soft, No tenderness Skin: No rashes, Other (Bilateral ankles with dry skin discoloration consistent with venous disease. Left foot with small ulcer with pink tissue at base between two remaining toes, no pustular drainage. Very small plantar surface open ulcer, undermining about 2 cm in plantar direction, no other tracks noted, no pustular drainage or surrounding erythema. ) Neuro: Normal speech, Normal tone Psych/Mental Status: Mental status NL, Mood NL MUSCULOSKELETAL: No muscular tenderness noted Vitals VITALS Vital Signs Date Time Temp Pulse Resp B/P (MAP) Pulse Ox O2 Delivery O2 Flow Rate FiO2 01/25/18 09:28 64 130/50 01/25/18 07:00 97.9 16 98 Room Air 97.9 Labs Labs Laboratory Tests Test 01/23/18 17:22 01/23/18 17:40 01/23/18 18:10 01/24/18 03:05 Glucose (Fingerstick) 109 mg/dL (70-99) White Blood Count 9.4 x10^3/uL (4.0-11.0) 8.7 x10^3/uL (4.0-11.0) Red Blood Count 3.98 x10^6/uL (4.30-5.70) 3.63 x10^6/uL (4.30-5.70) Hemoglobin 12.9 g/dL (13.0-17.5) 11.9 g/dL (13.0-17.5) Hematocrit 36.0 % (39.0-53.0) 32.8 % (39.0-53.0) Mean Corpuscular Volume 91 fL (79-100) 90 fL (79-100) Mean Corpuscular Hemoglobin 33 pg (25-35) 33 pg (25-35) Mean Corpuscular Hemoglobin Concent 36 g/dL (31-37) 36 g/dL (31-37) Red Cell Distribution Width 13.3 % (11.5-14.5) 13.4 % (11.5-14.5) Platelet Count 272 x10^3/uL (140-400) 250 x10^3/uL (140-400) Neutrophils (%) (Auto) 49 % (31-73) Lymphocytes (%) (Auto) 33 % (24-48) Monocytes (%) (Auto) 8 % (0-9) Eosinophils (%) (Auto) 9 % (0-3) Basophils (%) (Auto) 1 % (0-3) Neutrophils # (Auto) 4.6 x10^3uL (1.8-7.7) Lymphocytes # (Auto) 3.1 x10^3/uL (1.0-4.8) Monocytes # (Auto) 0.8 x10^3/uL (0.0-1.1) Eosinophils # (Auto) 0.8 x10^3/uL (0.0-0.7) Basophils # (Auto) 0.1 x10^3/uL (0.0-0.2) Sodium Level 143 mmol/L (136-145) Potassium Level 4.1 mmol/L (3.5-5.1) Chloride Level 106 mmol/L (98-107) Carbon Dioxide Level 27 mmol/L (21-32) Anion Gap 10 (6-14) Blood Urea Nitrogen 35 mg/dL (8-26) Creatinine 1.1 mg/dL (0.7-1.3) Estimated GFR (Cockcroft-Gault) 67.0 BUN/Creatinine Ratio 32 (6-20) Glucose Level 134 mg/dL (70-99) Lactic Acid Level 1.2 mmol/L (0.4-2.0) Calcium Level 9.0 mg/dL (8.5-10.1) Total Bilirubin 0.6 mg/dL (0.2-1.0) Aspartate Amino Transf (AST/SGOT) 18 U/L (15-37) Alanine Aminotransferase (ALT/SGPT) 26 U/L (16-63) Alkaline Phosphatase 181 U/L (46-116) Total Protein 8.8 g/dL (6.4-8.2) Albumin 3.4 g/dL (3.4-5.0) Albumin/Globulin Ratio 0.6 (1.0-1.7) Urine Collection Type Unknown Urine Color Yellow Urine Clarity Clear Urine pH 5.0 Urine Specific [place] 1.020 Urine Protein Negative mg/dL (NEG-TRACE) Urine Glucose (UA) Negative mg/dL (NEG) Urine Ketones (Stick) Negative mg/dL (NEG) Urine Blood Negative (NEG) Urine Nitrite Negative (NEG) Urine Bilirubin Negative (NEG) Urine Urobilinogen Dipstick 0.2 mg/dL (0.2 mg/dL) Urine Leukocyte Esterase Negative (NEG) Urine RBC 1-2 /HPF (0-2) Urine WBC 0 /HPF (0-4) Urine Squamous Epithelial Cells Few /LPF Urine Bacteria 0 /HPF (0-FEW) Urine Hyaline Casts Few /HPF Urine Mucus Slight /LPF Test 01/24/18 08:00 01/24/18 11:35 01/24/18 16:26 01/24/18 20:31 Glucose (Fingerstick) 118 mg/dL (70-99) 146 mg/dL (70-99) 113 mg/dL (70-99) 108 mg/dL (70-99) Test 01/25/18 05:45 01/25/18 07:41 01/25/18 11:28 White Blood Count 7.7 x10^3/uL (4.0-11.0) Red Blood Count 3.78 x10^6/uL (4.30-5.70) Hemoglobin 12.1 g/dL (13.0-17.5) Hematocrit 34.1 % (39.0-53.0) Mean Corpuscular Volume 90 fL (79-100) Mean Corpuscular Hemoglobin 32 pg (25-35) Mean Corpuscular Hemoglobin Concent 36 g/dL (31-37) Red Cell Distribution Width 13.5 % (11.5-14.5) Platelet Count 234 x10^3/uL (140-400) Neutrophils (%) (Auto) 48 % (31-73) Lymphocytes (%) (Auto) 32 % (24-48) Monocytes (%) (Auto) 9 % (0-9) Eosinophils (%) (Auto) 10 % (0-3) Basophils (%) (Auto) 1 % (0-3) Neutrophils # (Auto) 3.7 x10^3uL (1.8-7.7) Lymphocytes # (Auto) 2.4 x10^3/uL (1.0-4.8) Monocytes # (Auto) 0.7 x10^3/uL (0.0-1.1) Eosinophils # (Auto) 0.8 x10^3/uL (0.0-0.7) Basophils # (Auto) 0.1 x10^3/uL (0.0-0.2) Sodium Level 145 mmol/L (136-145) Potassium Level 3.8 mmol/L (3.5-5.1) Chloride Level 109 mmol/L (98-107) Carbon Dioxide Level 27 mmol/L (21-32) Anion Gap 9 (6-14) Blood Urea Nitrogen 21 mg/dL (8-26) Creatinine 1.0 mg/dL (0.7-1.3) Estimated GFR (Cockcroft-Gault) 74.8 Glucose Level 111 mg/dL (70-99) Calcium Level 8.3 mg/dL (8.5-10.1) Vancomycin Level Trough 13.2 mcg/mL (10.0-20.0) Vancomycin Last Dose Date 01/24/18 Vancomycin Last Dose Time 1200 Glucose (Fingerstick) 115 mg/dL (70-99) 151 mg/dL (70-99) Laboratory Tests Test 01/24/18 16:26 01/24/18 20:31 01/25/18 05:45 01/25/18 07:41 Glucose (Fingerstick) 113 mg/dL (70-99) 108 mg/dL (70-99) 115 mg/dL (70-99) White Blood Count 7.7 x10^3/uL (4.0-11.0) Red Blood Count 3.78 x10^6/uL (4.30-5.70) Hemoglobin 12.1 g/dL (13.0-17.5) Hematocrit 34.1 % (39.0-53.0) Mean Corpuscular Volume 90 fL (79-100) Mean Corpuscular Hemoglobin 32 pg (25-35) Mean Corpuscular Hemoglobin Concent 36 g/dL (31-37) Red Cell Distribution Width 13.5 % (11.5-14.5) Platelet Count 234 x10^3/uL (140-400) Neutrophils (%) (Auto) 48 % (31-73) Lymphocytes (%) (Auto) 32 % (24-48) Monocytes (%) (Auto) 9 % (0-9) Eosinophils (%) (Auto) 10 % (0-3) Basophils (%) (Auto) 1 % (0-3) Neutrophils # (Auto) 3.7 x10^3uL (1.8-7.7) Lymphocytes # (Auto) 2.4 x10^3/uL (1.0-4.8) Monocytes # (Auto) 0.7 x10^3/uL (0.0-1.1) Eosinophils # (Auto) 0.8 x10^3/uL (0.0-0.7) Basophils # (Auto) 0.1 x10^3/uL (0.0-0.2) Sodium Level 145 mmol/L (136-145) Potassium Level 3.8 mmol/L (3.5-5.1) Chloride Level 109 mmol/L (98-107) Carbon Dioxide Level 27 mmol/L (21-32) Anion Gap 9 (6-14) Blood Urea Nitrogen 21 mg/dL (8-26) Creatinine 1.0 mg/dL (0.7-1.3) Estimated GFR (Cockcroft-Gault) 74.8 Glucose Level 111 mg/dL (70-99) Calcium Level 8.3 mg/dL (8.5-10.1) Vancomycin Level Trough 13.2 mcg/mL (10.0-20.0) Vancomycin Last Dose Date 01/24/18 Vancomycin Last Dose Time 1200 Test 01/25/18 11:28 Glucose (Fingerstick) 151 mg/dL (70-99) Assessment/Plan Assessment/Plan Pt has diabetic left foot wound previously treated by wound care x1 month. He is currently being treated for osteomyelitis, unable to find imaging suggesting this in [employer] or in paper chart. I will order foot xray. His pulses are not impressive in his left foot, I will get arterial US. We will follow up with results. Pt should be non weight bearing on left foot. Pt can ambulate with forefoot off-loading shoe. Continue wound care for now. Pt seen and examined. Pt has a palpable PT pulse; No purulent drainage expressed from wound. Favor MRI. Await dopper arterial studies. CHIDI MANN Jan 25, 2018 14:06 WANDA BRADFORD II, MD Jan 25, 2018 17:39
[2018-01-25 15:00] VITALS: BP 118/68
[2018-01-25] MEDS: guaiFENesin ORAL 200 MG/10 ML LIQUID. PO PRN (16:06)
[2018-01-25] MEDS ORDERED: LORA10TA3 PO (16:22)
[2018-01-25] MEDS ORDERED: MICO85PO6 TP (16:22)
[2018-01-25 19:20] VITALS: BP 133/65
[2018-01-25 23:02] VITALS: BP 140/62
[2018-01-26] MEDS: guaiFENesin ORAL 200 MG/10 ML LIQUID. PO PRN ×2 (01:17→18:20)
[2018-01-26 03:27] VITALS: BP 130/52
[2018-01-26 04:35] LABS: BASO # 0.1 x10^3/uL (0.0-0.2); BASO % 1 % (0-3); EOS % 11 % (0-3); HEMATOCRIT 34.1 % (39.0-53.0); HEMOGLOBIN 12.4 g/dL (13.0-17.5); LYMPH # 2.9 x10^3/uL (1.0-4.8); LYMPH % 31 % (24-48); MEAN CORPUSCULAR HEMOGLOBIN 33 pg (25-35); MEAN CORPUSCULAR HGB CONC 36 g/dL (31-37); MEAN CORPUSCULAR VOLUME 90 fL (79-100); MONO # 1.1 x10^3/uL (0.0-1.1); MONO % 12 % (0-9); NEUT # 4.4 x10^3uL (1.8-7.7); NEUT % 46 % (31-73); PLATELET COUNT 251 x10^3/uL (140-400); RED BLOOD COUNT 3.78 x10^6/uL (4.30-5.70); RED CELL DISTRIBUTION WIDTH 13.3 % (11.5-14.5); WHITE BLOOD COUNT 9.4 x10^3/uL (4.0-11.0)
[2018-01-26 05:01] LABS: CREATININE 1.1 mg/dL (0.7-1.3); POTASSIUM 3.7 mmol/L (3.5-5.1)
[2018-01-26] MEDS: MEROPENEM 500 MG in IV NORMAL SALINE 50ML 50 ML IV SCH ×3 (05:23→22:00)
[2018-01-26] MEDS: LEVOTHYROXINE 25 MCG TABLET. PO SCH (06:28)
[2018-01-26 07:00] VITALS: BP 139/75
[2018-01-26] MEDS: ASPIRIN ENTERIC COATED 81 MG TABLET.DR. PO SCH (07:53)
[2018-01-26] MEDS: LACTOBACILLUS RHAMNOSUS GG 1 CAPSULE. PO SCH ×2 (07:53→19:59)
[2018-01-26] MEDS: CLOPIDOGREL BISULFATE 75 MG TABLET PO SCH (07:54)
[2018-01-26] MEDS: MULTIVITAMIN I-VITE TABLET. PO SCH (07:54)
[2018-01-26] MEDS: metFORMIN 500 MG TABLET PO SCH ×2 (07:54→17:23)
[2018-01-26] MEDS: hydroCHLOROthiazide 12.5 MG CAPSULE PO SCH (07:54)
[2018-01-26] MEDS: glipiZIDE 5 MG TABLET PO SCH ×2 (07:54→17:23)
[2018-01-26] MEDS: amLODIPine BESYLATE 10 MG TABLET PO SCH (07:55)
[2018-01-26] MEDS: ENOXAPARIN 40 MG/0.4 ML SYRINGE. SQ SCH (07:56)
[2018-01-26] MEDS: ASCORBIC ACID 500 MG TABLET PO SCH (07:56)
[2018-01-26] MEDS: LISINOPRIL 20 MG TABLET PO SCH (07:56)
[2018-01-26] MEDS: VANCOMYCIN 1.25 GM in IV NORMAL SALINE 250ML 250 ML IV SCH ×2 (07:57→19:59)
[2018-01-26] MEDS: INSULIN LISPRO 300 UNITS/3 ML INSULN.PEN. SQ SCH ×3 (07:57→17:00)
--- NOTE | 2018-01-26 08:15 | RAD ---
Left lower extremity arterial ultrasound, 01/25/2018: HISTORY: Peripheral vascular disease Duplex evaluation of the major arteries in both lower extremities was performed including grayscale, color-flow and spectral Doppler analysis. The left common femoral Doppler waveform is triphasic. There are minimal scattered atherosclerotic plaques. The superficial femoral and popliteal Doppler waveforms are biphasic and triphasic. No significant focal velocity elevation is seen in those vessels to suggest high-grade stenosis. The left posterior tibial artery is patent with a triphasic Doppler waveform. The peroneal and anterior tibial arteries are also widely patent. The left dorsalis pedis artery is patent with a good amplitude biphasic Doppler waveform. IMPRESSION: Minimal scattered atherosclerotic plaquing without evidence of significant arterial occlusive disease in the left lower extremity. Electronically signed by: Carltios Major MD (01/26/2018 8:11 AM) [facility]
--- NOTE | 2018-01-26 10:47 | PDOC ---
PROGRESS NOTES Subjective Subjective Evidence of osteomyelitis of head and neck of 3rd metatarsal via MRI on . Today I learned pt did have successful angioplasty performed 11/20/17 to left SFA, popliteal and TP trunk. Arterial US confirms patency, without evidence of significant arterial occlusive disease in the left lower extremity. Pt with no complaints today. Objective Objective Vital Signs Date Time Temp Pulse Resp B/P (MAP) Pulse Ox O2 Delivery O2 Flow Rate FiO2 01/26/18 07:56 70 139/75 01/26/18 07:00 97.3 16 97 Room Air 97.3 Intake and Output 01/26/18 07:00 Intake Total 1020 ml Balance 1020 ml Intake Oral 1020 ml # Voids 12 Physical Exam Abdomen: Soft, No tenderness Heart: Regular rate General: Alert, Oriented X3, No acute distress HEENT: Atraumatic Neuro: Normal speech, Normal tone Psych/Mental Status: Mental status NL, Mood NL COMMENT Bilateral ankles with dry skin discoloration consistent with venous disease. Left foot with small ulcer with pink tissue at base between two remaining toes, no pustular drainage. Very small plantar surface open ulcer, undermining about 2 cm in plantar direction, no other tracks noted, no pustular drainage or surrounding erythema. Plan Plan of Care Osteomyelitis of head and neck of left 3rd metatarsal with plantar wound Recommend left 3rd toe amp with wedge resection and wound debridement. Discussed this with Dr. Strauss who agreed. I discussed the procedure, risks and benefits with the pt, who exhibited understanding and agreed with said plan. All questions were answered to satisfaction. I will arrange this with schedulers, hopefully to be done Monday. Fore-foot off loading shoe arrived yesterday, pt will require this for ambulation post op as well. Continue IV abx per ID. Comment Review of Relevant I have reviewed the following items billy (where applicable) has been applied. Labs Laboratory Tests Test 01/24/18 11:35 01/24/18 16:26 01/24/18 20:31 01/25/18 05:45 Glucose (Fingerstick) 146 mg/dL (70-99) 113 mg/dL (70-99) 108 mg/dL (70-99) White Blood Count 7.7 x10^3/uL (4.0-11.0) Red Blood Count 3.78 x10^6/uL (4.30-5.70) Hemoglobin 12.1 g/dL (13.0-17.5) Hematocrit 34.1 % (39.0-53.0) Mean Corpuscular Volume 90 fL (79-100) Mean Corpuscular Hemoglobin 32 pg (25-35) Mean Corpuscular Hemoglobin Concent 36 g/dL (31-37) Red Cell Distribution Width 13.5 % (11.5-14.5) Platelet Count 234 x10^3/uL (140-400) Neutrophils (%) (Auto) 48 % (31-73) Lymphocytes (%) (Auto) 32 % (24-48) Monocytes (%) (Auto) 9 % (0-9) Eosinophils (%) (Auto) 10 % (0-3) Basophils (%) (Auto) 1 % (0-3) Neutrophils # (Auto) 3.7 x10^3uL (1.8-7.7) Lymphocytes # (Auto) 2.4 x10^3/uL (1.0-4.8) Monocytes # (Auto) 0.7 x10^3/uL (0.0-1.1) Eosinophils # (Auto) 0.8 x10^3/uL (0.0-0.7) Basophils # (Auto) 0.1 x10^3/uL (0.0-0.2) Sodium Level 145 mmol/L (136-145) Potassium Level 3.8 mmol/L (3.5-5.1) Chloride Level 109 mmol/L (98-107) Carbon Dioxide Level 27 mmol/L (21-32) Anion Gap 9 (6-14) Blood Urea Nitrogen 21 mg/dL (8-26) Creatinine 1.0 mg/dL (0.7-1.3) Estimated GFR (Cockcroft-Gault) 74.8 Glucose Level 111 mg/dL (70-99) Calcium Level 8.3 mg/dL (8.5-10.1) Vancomycin Level Trough 13.2 mcg/mL (10.0-20.0) Vancomycin Last Dose Date 01/24/18 Vancomycin Last Dose Time 1200 Test 01/25/18 07:41 01/25/18 08:05 01/25/18 11:28 01/25/18 16:32 Glucose (Fingerstick) 115 mg/dL (70-99) 151 mg/dL (70-99) 149 mg/dL (70-99) Nasal Screen MRSA (PCR) Negative (Negative) Test 01/25/18 19:49 01/26/18 03:10 01/26/18 07:35 Glucose (Fingerstick) 225 mg/dL (70-99) 98 mg/dL (70-99) White Blood Count 9.4 x10^3/uL (4.0-11.0) Red Blood Count 3.78 x10^6/uL (4.30-5.70) Hemoglobin 12.4 g/dL (13.0-17.5) Hematocrit 34.1 % (39.0-53.0) Mean Corpuscular Volume 90 fL (79-100) Mean Corpuscular Hemoglobin 33 pg (25-35) Mean Corpuscular Hemoglobin Concent 36 g/dL (31-37) Red Cell Distribution Width 13.3 % (11.5-14.5) Platelet Count 251 x10^3/uL (140-400) Neutrophils (%) (Auto) 46 % (31-73) Lymphocytes (%) (Auto) 31 % (24-48) Monocytes (%) (Auto) 12 % (0-9) Eosinophils (%) (Auto) 11 % (0-3) Basophils (%) (Auto) 1 % (0-3) Neutrophils # (Auto) 4.4 x10^3uL (1.8-7.7) Lymphocytes # (Auto) 2.9 x10^3/uL (1.0-4.8) Monocytes # (Auto) 1.1 x10^3/uL (0.0-1.1) Eosinophils # (Auto) 1.0 x10^3/uL (0.0-0.7) Basophils # (Auto) 0.1 x10^3/uL (0.0-0.2) Sodium Level 147 mmol/L (136-145) Potassium Level 3.7 mmol/L (3.5-5.1) Chloride Level 109 mmol/L (98-107) Carbon Dioxide Level 25 mmol/L (21-32) Anion Gap 13 (6-14) Blood Urea Nitrogen 27 mg/dL (8-26) Creatinine 1.1 mg/dL (0.7-1.3) Estimated GFR (Cockcroft-Gault) 67.0 Glucose Level 129 mg/dL (70-99) Calcium Level 8.0 mg/dL (8.5-10.1) Laboratory Tests Test 01/25/18 11:28 01/25/18 16:32 01/25/18 19:49 01/26/18 03:10 Glucose (Fingerstick) 151 mg/dL (70-99) 149 mg/dL (70-99) 225 mg/dL (70-99) White Blood Count 9.4 x10^3/uL (4.0-11.0) Red Blood Count 3.78 x10^6/uL (4.30-5.70) Hemoglobin 12.4 g/dL (13.0-17.5) Hematocrit 34.1 % (39.0-53.0) Mean Corpuscular Volume 90 fL (79-100) Mean Corpuscular Hemoglobin 33 pg (25-35) Mean Corpuscular Hemoglobin Concent 36 g/dL (31-37) Red Cell Distribution Width 13.3 % (11.5-14.5) Platelet Count 251 x10^3/uL (140-400) Neutrophils (%) (Auto) 46 % (31-73) Lymphocytes (%) (Auto) 31 % (24-48) Monocytes (%) (Auto) 12 % (0-9) Eosinophils (%) (Auto) 11 % (0-3) Basophils (%) (Auto) 1 % (0-3) Neutrophils # (Auto) 4.4 x10^3uL (1.8-7.7) Lymphocytes # (Auto) 2.9 x10^3/uL (1.0-4.8) Monocytes # (Auto) 1.1 x10^3/uL (0.0-1.1) Eosinophils # (Auto) 1.0 x10^3/uL (0.0-0.7) Basophils # (Auto) 0.1 x10^3/uL (0.0-0.2) Sodium Level 147 mmol/L (136-145) Potassium Level 3.7 mmol/L (3.5-5.1) Chloride Level 109 mmol/L (98-107) Carbon Dioxide Level 25 mmol/L (21-32) Anion Gap 13 (6-14) Blood Urea Nitrogen 27 mg/dL (8-26) Creatinine 1.1 mg/dL (0.7-1.3) Estimated GFR (Cockcroft-Gault) 67.0 Glucose Level 129 mg/dL (70-99) Calcium Level 8.0 mg/dL (8.5-10.1) Test 01/26/18 07:35 Glucose (Fingerstick) 98 mg/dL (70-99) Microbiology 01/23/18 Blood Culture - Preliminary, Resulted NO GROWTH AFTER 2 DAYS 01/23/18 Anaerobic/Aerobic Culture, Resulted Pending 01/23/18 Anaerobic Culture Result 1 (ILDA), Resulted Pending 01/23/18 Aerobic Culture, Resulted Pending 01/23/18 Aerobic Culture Result 1 (ILDA), Resulted Pending 01/23/18 Gram Stain - Final, Resulted 01/23/18 Gram Stain Result 1 (ILDA) - Final, Resulted 01/23/18 Gram Stain Result 2 (ILDA) - Final, Resulted 01/23/18 Gram Stain Result 3 (ILDA) - Final, Resulted Medications Current Medications Vancomycin HCl (Vanco Per Pharmacy) 1 each PRN DAILY PRN MC SEE COMMENTS Last administered on 01/25/18at 13:55; Start 01/23/18 at 17:15 Meropenem 500 mg/ Sodium Chloride 50 ml @ 100 mls/hr Q8HRS IV Last administered on 01/26/18at 05:23; Start 01/23/18 at 22:00 Sodium Chloride 1,000 ml @ 75 mls/hr [id number] IV ; Start 01/23/18 at 17:15; Status Cancel Insulin Human Lispro (HumaLOG) 0-5 UNITS TIDWMEALS SQ ; Start 01/23/18 at 17:30 Dextrose (Dextrose 50%-Water Syringe) 12.5 gm PRN Q15MIN PRN IV SEE COMMENTS; Start 01/23/18 at 17:15 Vancomycin HCl 1.75 gm/Sodium Chloride 500 ml @ 250 mls/hr 1X ONCE IV Last administered on 01/23/18at 17:58; Start 01/23/18 at 17:30; Stop 01/23/18 at 19 :29; Status DC Meropenem 500 mg/ Sodium Chloride 50 ml @ 100 mls/hr 1X ONCE IV Last administered on 01/23/18at 17:57; Start 01/23/18 at 17:30; Stop 01/23/18 at 17 :59; Status DC Acetaminophen (Tylenol) 650 mg PRN Q4HRS PO ; Start 01/23/18 at 17:15; Status UNV Amlodipine Besylate (Norvasc) 10 mg BID PO Last administered on 01/25/18 09: 27; Start 01/23/18 at 21:00; Stop 01/25/18 at 16:22; Status DC Ascorbic Acid (Vitamin C) 500 mg DAILY PO Last administered on 01/26/18at 07:56 ; Start 01/24/18 at 09:00 Aspirin (Ecotrin) 81 mg DAILY PO Last administered on 01/26/18at 07:53; Start 01/24/18 at 09:00 Clopidogrel Bisulfate (Plavix) 75 mg DAILY PO Last administered on 01/26/18at 07:54; Start 01/24/18 at 09:00 Glipizide (Glucotrol) 5 mg BIDAC PO Last administered on 01/26/18at 07:54; Start 01/24/18 at 07:30 Lisinopril (Prinivil) 40 mg BID PO Last administered on 01/25/18 09:26; Start 01/23/18 at 21:00; Stop 01/25/18 at 16:23; Status DC Metoprolol Tartrate (Lopressor) 25 mg DAILY PO Last administered on 01/25/18at 09:28; Start 01/24/18 at 09:00; Stop 01/25/18 at 16:22; Status DC Hydrochlorothiazide (Microzide) 12.5 mg DAILY PO Last administered on at 07:54; Start 01/24/18 at 09:00 Levothyroxine Sodium (Synthroid) 25 mcg DAILY06 PO Last administered on at 06:28; Start 01/24/18 at 06:00 Metformin HCl (Glucophage) 500 mg BIDWMEALS PO Last administered on 01/26/18 07:54; Start 01/23/18 at 18:00 Multivitamins/ Minerals (I-Erica) 1 tab DAILY PO Last administered on at 07:54; Start 01/24/18 at 09:00 Sodium Chloride (Normal Saline Flush 3ml) 3 ml QSHIFT PRN IV AFTER MEDS AND BLOOD DRAWS; Start 01/23/18 at 17:30 Sodium Chloride 1,000 ml @ 100 mls/hr Q10H IV Last administered on 01/25/18at 06:11; Start 01/23/18 at 18:00; Stop 01/25/18 at 17:43; Status DC Ondansetron HCl (Zofran) 4 mg PRN Q4HRS PRN IV NAUSEA/VOMITING; Start at 17:30 Acetaminophen (Tylenol) 650 mg PRN Q4HRS PRN PO TEMP OVER 100.4F OR MILD PAIN; Start 01/23/18 at 17:30 Al Hydroxide/Mg Hydroxide (Mylanta Plus Xs) 30 ml PRN DAILY PRN PO HEARTBURN / GAS; Start 01/23/18 at 17:30 Sodium Monofluorophosphate (Fleet Adult) 133 ml PRN DAILY PRN CO CONSTIPATION; Start 01/23/18 at 17:30 Docusate Sodium (Colace) 100 mg PRN BID PRN PO CONSTIPATION; Start 01/23/18 at 17:30 Albuterol Sulfate (Ventolin Neb Soln) 2.5 mg PRN Q4HRS PRN NEB SHORTNESS OF BREATH; Start 01/23/18 at 17:30 Guaifenesin (Robitussin) 200 mg PRN Q4HRS PRN PO COUGH Last administered on at 01:17; Start 01/23/18 at 17:30 Enoxaparin Sodium (Lovenox 40mg Syringe) 40 mg DAILY SQ ; Start 01/24/18 at 09: 00 Vancomycin HCl 1 gm/Dextrose 250 ml @ 250 mls/hr 1X ONCE IV ; Start 01/23/18 at 17:30; Stop 01/23/18 at 18:29; Status UNV Vancomycin HCl (Vanco Per Pharmacy) 1 each PRN DAILY PRN MC SEE COMMENTS; Start 01/23/18 at 17:30; Status UNV Acetaminophen/ Hydrocodone Bitart (Lortab 5/325) 1 tab PRN Q6HRS PRN PO MOD TO SEVERE PAIN; Start 01/23/18 at 18:30 Vancomycin HCl 1.25 gm/Sodium Chloride 250 ml @ 250 mls/hr Q18H IV Last administered on 01/25/18at 07:25; Start 01/24/18 at 12:00; Stop 01/25/18 at 09 :00; Status DC Vancomycin HCl (Vancomycin Trough Level) 1 each 1X ONCE MC Last administered on 01/25/18at 06:30; Start 01/25/18 at 05:30; Stop 01/25/18 at 05:31; Status DC Lactobacillus Rhamnosus (Culturelle) 1 cap BID PO Last administered on at 07:53; Start 01/24/18 at 21:00 Vancomycin HCl 1.25 gm/Sodium Chloride 250 ml @ 250 mls/hr Q12H IV Last administered on 01/26/18at 07:57; Start 01/25/18 at 20:00 Amlodipine Besylate (Norvasc) 10 mg DAILY PO Last administered on 01/26/18at 07 :55; Start 01/26/18 at 09:00 Lisinopril (Prinivil) 40 mg DAILY PO Last administered on 01/26/18at 07:56; Start 01/26/18 at 09:00 Active Scripts Active Reported Remedy Phytoplex Antifungal (Miconazole Nitrate) 85 Gm Powder 1 Alia TP DAILY Loratadine 10 Mg Tablet 10 Mg PO DAILY Ascorbic Acid 500 Mg Tablet 500 Mg PO BID Hydrochlorothiazide Capsule (Hydrochlorothiazide) 12.5 Mg Capsule 12.5 Mg PO DAILY Glipizide 5 Mg Tablet 1 Tab PO BIDWMEALS Clopidogrel (Clopidogrel Bisulfate) 75 Mg Tablet 75 Mg PO DAILY Tylenol (Acetaminophen) 325 Mg Tablet 325 Mg PO PRN Q4HRS Metformin Hcl 500 Mg Tablet 500 Mg PO BIDWMEALS Lisinopril 20 Mg Tablet 40 Tab PO DAILY Levothyroxine Sodium 25 Mcg Tablet 25 Mcg PO DAILY Aspir 81 (Aspirin) 81 Mg Tablet.dr 81 Mg PO DAILY Amlodipine Besylate 5 Mg Tablet 10 Mg PO DAILY Vitals/I & O Vital Sign - Last 24 Hours 01/25/18 01/25/18 01/25/18 01/25/18 11:00 15:00 19:20 20:00 Temp 97.7 97.6 98.5 97.7 97.6 98.5 Pulse 65 76 78 Resp 16 16 18 B/P (MAP) 135/66 (89) 118/68 (85) 133/65 (87) Pulse Ox 97 99 96 O2 Delivery Room Air Room Air Room Air Room Air 01/25/18 01/26/18 01/26/18 01/26/18 23:02 03:27 07:00 07:55 Temp 98.5 98.6 97.3 98.5 98.6 97.3 Pulse 91 82 70 70 Resp 18 18 16 B/P (MAP) 140/62 (88) 130/52 (78) 139/75 (96) 139/75 Pulse Ox 97 94 97 O2 Delivery Room Air Room Air Room Air 01/26/18 07:56 Pulse 70 B/P (MAP) 139/75 Intake and Output 01/25/18 01/25/18 01/26/18 15:00 23:00 07:00 Intake Total 300 ml 720 ml Balance 300 ml 720 ml CHIDI MANN Jan 26, 2018 10:47
[2018-01-26 11:00] VITALS: BP 130/64
--- NOTE | 2018-01-26 11:30 | PDOC ---
Infectious Disease Note Subjective Subjective feeling good says TELLO JAVED no n/v/d/sob Vital Sign Vital Signs Vital Signs Date Time Temp Pulse Resp B/P (MAP) Pulse Ox O2 Delivery O2 Flow Rate FiO2 01/26/18 08:15 Room Air 01/26/18 07:56 70 139/75 01/26/18 07:00 97.3 16 97 97.3 Physical Exam PHYSICAL EXAM GENERAL: Alert, oriented gentleman, not in distress. VITAL SIGNS: Stable, afebrile. HEENT: NAD. NECK: Supple, no JVP, no lymphadenopathy. LUNGS: Clear. HEART: S1, S2 regular. ABDOMEN: Benign. EXTREMITIES: The patient has left lower extremity first toe amputation, which has nicely healed. The patient has third toe partially amputated where the drainage is coming out. Does have mild edema, dorsalis pedis is weakly palpable. NEUROLOGIC: The patient is neurologically intact. Labs Lab Laboratory Tests Test 01/25/18 16:32 01/25/18 19:49 01/26/18 03:10 01/26/18 07:35 Glucose (Fingerstick) 149 mg/dL (70-99) 225 mg/dL (70-99) 98 mg/dL (70-99) White Blood Count 9.4 x10^3/uL (4.0-11.0) Red Blood Count 3.78 x10^6/uL (4.30-5.70) Hemoglobin 12.4 g/dL (13.0-17.5) Hematocrit 34.1 % (39.0-53.0) Mean Corpuscular Volume 90 fL (79-100) Mean Corpuscular Hemoglobin 33 pg (25-35) Mean Corpuscular Hemoglobin Concent 36 g/dL (31-37) Red Cell Distribution Width 13.3 % (11.5-14.5) Platelet Count 251 x10^3/uL (140-400) Neutrophils (%) (Auto) 46 % (31-73) Lymphocytes (%) (Auto) 31 % (24-48) Monocytes (%) (Auto) 12 % (0-9) Eosinophils (%) (Auto) 11 % (0-3) Basophils (%) (Auto) 1 % (0-3) Neutrophils # (Auto) 4.4 x10^3uL (1.8-7.7) Lymphocytes # (Auto) 2.9 x10^3/uL (1.0-4.8) Monocytes # (Auto) 1.1 x10^3/uL (0.0-1.1) Eosinophils # (Auto) 1.0 x10^3/uL (0.0-0.7) Basophils # (Auto) 0.1 x10^3/uL (0.0-0.2) Sodium Level 147 mmol/L (136-145) Potassium Level 3.7 mmol/L (3.5-5.1) Chloride Level 109 mmol/L (98-107) Carbon Dioxide Level 25 mmol/L (21-32) Anion Gap 13 (6-14) Blood Urea Nitrogen 27 mg/dL (8-26) Creatinine 1.1 mg/dL (0.7-1.3) Estimated GFR (Cockcroft-Gault) 67.0 Glucose Level 129 mg/dL (70-99) Calcium Level 8.0 mg/dL (8.5-10.1) Test 01/26/18 11:06 Glucose (Fingerstick) 111 mg/dL (70-99) Micro Microbiology 01/23/18 Blood Culture - Preliminary, Resulted NO GROWTH AFTER 1 DAY Objective Assessment Osteomyelitis of 3 rd met DM PAD HTN Plan Plan of Care vanc and meropenem surgery on monday d/w vascular surgery supportive care JUSTINA ROSSI MD Jan 26, 2018 11:30
--- NOTE | 2018-01-26 12:07 | PDOC ---
PROGRESS NOTES Chief Complaint Chief Complaint Left diabetic foot cellulitis/osteomyelitis Hyperglycemia H/o DM H/o PAD H/o MRSA H/o cognitive disability H/o HTN H/o hypothyroidism H/o amputation (2 toes on left foot) History of Present Illness History of Present Illness Pt seen and examined while sitting in bed Pt was very polite and smily Discussed w/RN Vitals Vitals Vital Signs Date Time Temp Pulse Resp B/P (MAP) Pulse Ox O2 Delivery O2 Flow Rate FiO2 01/26/18 11:00 97.7 75 18 130/64 (86) 98 Room Air 97.7 Physical Exam Physical Exam Neck: Supple, no JVP, no lymphadenopathy General: Alert, Cooperative, No acute distress Heart: Regular rate, Normal S1, Normal S2 Lungs: Clear Abdomen: Normal bowel sounds, Soft, No tenderness Extremities: No cyanosis, Other (L foot dressing dry and intact) Skin: No rashes Labs LABS Laboratory Tests Test 01/25/18 16:32 01/25/18 19:49 01/26/18 03:10 01/26/18 07:35 Glucose (Fingerstick) 149 mg/dL (70-99) 225 mg/dL (70-99) 98 mg/dL (70-99) White Blood Count 9.4 x10^3/uL (4.0-11.0) Red Blood Count 3.78 x10^6/uL (4.30-5.70) Hemoglobin 12.4 g/dL (13.0-17.5) Hematocrit 34.1 % (39.0-53.0) Mean Corpuscular Volume 90 fL (79-100) Mean Corpuscular Hemoglobin 33 pg (25-35) Mean Corpuscular Hemoglobin Concent 36 g/dL (31-37) Red Cell Distribution Width 13.3 % (11.5-14.5) Platelet Count 251 x10^3/uL (140-400) Neutrophils (%) (Auto) 46 % (31-73) Lymphocytes (%) (Auto) 31 % (24-48) Monocytes (%) (Auto) 12 % (0-9) Eosinophils (%) (Auto) 11 % (0-3) Basophils (%) (Auto) 1 % (0-3) Neutrophils # (Auto) 4.4 x10^3uL (1.8-7.7) Lymphocytes # (Auto) 2.9 x10^3/uL (1.0-4.8) Monocytes # (Auto) 1.1 x10^3/uL (0.0-1.1) Eosinophils # (Auto) 1.0 x10^3/uL (0.0-0.7) Basophils # (Auto) 0.1 x10^3/uL (0.0-0.2) Sodium Level 147 mmol/L (136-145) Potassium Level 3.7 mmol/L (3.5-5.1) Chloride Level 109 mmol/L (98-107) Carbon Dioxide Level 25 mmol/L (21-32) Anion Gap 13 (6-14) Blood Urea Nitrogen 27 mg/dL (8-26) Creatinine 1.1 mg/dL (0.7-1.3) Estimated GFR (Cockcroft-Gault) 67.0 Glucose Level 129 mg/dL (70-99) Calcium Level 8.0 mg/dL (8.5-10.1) Test 01/26/18 11:06 Glucose (Fingerstick) 111 mg/dL (70-99) Review of Systems Review of Systems Denies foot pain, changes in bowel/bladder habits Pt says he is feeling well overall Assessment and Plan Assessmemt and Plan Assessment: Left diabetic foot cellulitis/osteomyelitis Hyperglycemia H/o DM H/o PAD H/o MRSA H/o cognitive disability H/o HTN H/o hypothyroidism H/o amputation (2 toes on left foot) Plan: Cont per ortho Awaiting vascular studies Cont IV abx Wound care Labs Home meds DTV ppx PT/OT Comment Review of Relevant I have reviewed the following items billy (where applicable) has been applied. Labs Laboratory Tests Test 01/24/18 16:26 01/24/18 20:31 01/25/18 05:45 01/25/18 07:41 Glucose (Fingerstick) 113 mg/dL (70-99) 108 mg/dL (70-99) 115 mg/dL (70-99) White Blood Count 7.7 x10^3/uL (4.0-11.0) Red Blood Count 3.78 x10^6/uL (4.30-5.70) Hemoglobin 12.1 g/dL (13.0-17.5) Hematocrit 34.1 % (39.0-53.0) Mean Corpuscular Volume 90 fL (79-100) Mean Corpuscular Hemoglobin 32 pg (25-35) Mean Corpuscular Hemoglobin Concent 36 g/dL (31-37) Red Cell Distribution Width 13.5 % (11.5-14.5) Platelet Count 234 x10^3/uL (140-400) Neutrophils (%) (Auto) 48 % (31-73) Lymphocytes (%) (Auto) 32 % (24-48) Monocytes (%) (Auto) 9 % (0-9) Eosinophils (%) (Auto) 10 % (0-3) Basophils (%) (Auto) 1 % (0-3) Neutrophils # (Auto) 3.7 x10^3uL (1.8-7.7) Lymphocytes # (Auto) 2.4 x10^3/uL (1.0-4.8) Monocytes # (Auto) 0.7 x10^3/uL (0.0-1.1) Eosinophils # (Auto) 0.8 x10^3/uL (0.0-0.7) Basophils # (Auto) 0.1 x10^3/uL (0.0-0.2) Sodium Level 145 mmol/L (136-145) Potassium Level 3.8 mmol/L (3.5-5.1) Chloride Level 109 mmol/L (98-107) Carbon Dioxide Level 27 mmol/L (21-32) Anion Gap 9 (6-14) Blood Urea Nitrogen 21 mg/dL (8-26) Creatinine 1.0 mg/dL (0.7-1.3) Estimated GFR (Cockcroft-Gault) 74.8 Glucose Level 111 mg/dL (70-99) Calcium Level 8.3 mg/dL (8.5-10.1) Vancomycin Level Trough 13.2 mcg/mL (10.0-20.0) Vancomycin Last Dose Date 01/24/18 Vancomycin Last Dose Time 1200 Test 01/25/18 08:05 01/25/18 11:28 01/25/18 16:32 01/25/18 19:49 Nasal Screen MRSA (PCR) Negative (Negative) Glucose (Fingerstick) 151 mg/dL (70-99) 149 mg/dL (70-99) 225 mg/dL (70-99) Test 01/26/18 03:10 01/26/18 07:35 01/26/18 11:06 White Blood Count 9.4 x10^3/uL (4.0-11.0) Red Blood Count 3.78 x10^6/uL (4.30-5.70) Hemoglobin 12.4 g/dL (13.0-17.5) Hematocrit 34.1 % (39.0-53.0) Mean Corpuscular Volume 90 fL (79-100) Mean Corpuscular Hemoglobin 33 pg (25-35) Mean Corpuscular Hemoglobin Concent 36 g/dL (31-37) Red Cell Distribution Width 13.3 % (11.5-14.5) Platelet Count 251 x10^3/uL (140-400) Neutrophils (%) (Auto) 46 % (31-73) Lymphocytes (%) (Auto) 31 % (24-48) Monocytes (%) (Auto) 12 % (0-9) Eosinophils (%) (Auto) 11 % (0-3) Basophils (%) (Auto) 1 % (0-3) Neutrophils # (Auto) 4.4 x10^3uL (1.8-7.7) Lymphocytes # (Auto) 2.9 x10^3/uL (1.0-4.8) Monocytes # (Auto) 1.1 x10^3/uL (0.0-1.1) Eosinophils # (Auto) 1.0 x10^3/uL (0.0-0.7) Basophils # (Auto) 0.1 x10^3/uL (0.0-0.2) Sodium Level 147 mmol/L (136-145) Potassium Level 3.7 mmol/L (3.5-5.1) Chloride Level 109 mmol/L (98-107) Carbon Dioxide Level 25 mmol/L (21-32) Anion Gap 13 (6-14) Blood Urea Nitrogen 27 mg/dL (8-26) Creatinine 1.1 mg/dL (0.7-1.3) Estimated GFR (Cockcroft-Gault) 67.0 Glucose Level 129 mg/dL (70-99) Calcium Level 8.0 mg/dL (8.5-10.1) Glucose (Fingerstick) 98 mg/dL (70-99) 111 mg/dL (70-99) Laboratory Tests Test 01/25/18 16:32 01/25/18 19:49 01/26/18 03:10 01/26/18 07:35 Glucose (Fingerstick) 149 mg/dL (70-99) 225 mg/dL (70-99) 98 mg/dL (70-99) White Blood Count 9.4 x10^3/uL (4.0-11.0) Red Blood Count 3.78 x10^6/uL (4.30-5.70) Hemoglobin 12.4 g/dL (13.0-17.5) Hematocrit 34.1 % (39.0-53.0) Mean Corpuscular Volume 90 fL (79-100) Mean Corpuscular Hemoglobin 33 pg (25-35) Mean Corpuscular Hemoglobin Concent 36 g/dL (31-37) Red Cell Distribution Width 13.3 % (11.5-14.5) Platelet Count 251 x10^3/uL (140-400) Neutrophils (%) (Auto) 46 % (31-73) Lymphocytes (%) (Auto) 31 % (24-48) Monocytes (%) (Auto) 12 % (0-9) Eosinophils (%) (Auto) 11 % (0-3) Basophils (%) (Auto) 1 % (0-3) Neutrophils # (Auto) 4.4 x10^3uL (1.8-7.7) Lymphocytes # (Auto) 2.9 x10^3/uL (1.0-4.8) Monocytes # (Auto) 1.1 x10^3/uL (0.0-1.1) Eosinophils # (Auto) 1.0 x10^3/uL (0.0-0.7) Basophils # (Auto) 0.1 x10^3/uL (0.0-0.2) Sodium Level 147 mmol/L (136-145) Potassium Level 3.7 mmol/L (3.5-5.1) Chloride Level 109 mmol/L (98-107) Carbon Dioxide Level 25 mmol/L (21-32) Anion Gap 13 (6-14) Blood Urea Nitrogen 27 mg/dL (8-26) Creatinine 1.1 mg/dL (0.7-1.3) Estimated GFR (Cockcroft-Gault) 67.0 Glucose Level 129 mg/dL (70-99) Calcium Level 8.0 mg/dL (8.5-10.1) Test 01/26/18 11:06 Glucose (Fingerstick) 111 mg/dL (70-99) Microbiology 01/23/18 Blood Culture - Preliminary, Resulted NO GROWTH AFTER 2 DAYS 01/23/18 Anaerobic/Aerobic Culture, Resulted Pending 01/23/18 Anaerobic Culture Result 1 (ILDA), Resulted Pending 01/23/18 Aerobic Culture, Resulted Pending 01/23/18 Aerobic Culture Result 1 (ILDA), Resulted Pending 01/23/18 Gram Stain - Final, Resulted 01/23/18 Gram Stain Result 1 (ILDA) - Final, Resulted 01/23/18 Gram Stain Result 2 (ILDA) - Final, Resulted 01/23/18 Gram Stain Result 3 (ILDA) - Final, Resulted Medications Current Medications Vancomycin HCl (Vanco Per Pharmacy) 1 each PRN DAILY PRN MC SEE COMMENTS Last administered on 01/25/18at 13:55; Start 01/23/18 at 17:15 Meropenem 500 mg/ Sodium Chloride 50 ml @ 100 mls/hr Q8HRS IV Last administered on 01/26/18at 05:23; Start 01/23/18 at 22:00 Sodium Chloride 1,000 ml @ 75 mls/hr [id number] IV ; Start 01/23/18 at 17:15; Status Cancel Insulin Human Lispro (HumaLOG) 0-5 UNITS TIDWMEALS SQ ; Start 01/23/18 at 17:30 Dextrose (Dextrose 50%-Water Syringe) 12.5 gm PRN Q15MIN PRN IV SEE COMMENTS; Start 01/23/18 at 17:15 Vancomycin HCl 1.75 gm/Sodium Chloride 500 ml @ 250 mls/hr 1X ONCE IV Last administered on 01/23/18at 17:58; Start 01/23/18 at 17:30; Stop 01/23/18 at 19 :29; Status DC Meropenem 500 mg/ Sodium Chloride 50 ml @ 100 mls/hr 1X ONCE IV Last administered on 01/23/18at 17:57; Start 01/23/18 at 17:30; Stop 01/23/18 at 17 :59; Status DC Acetaminophen (Tylenol) 650 mg PRN Q4HRS PO ; Start 01/23/18 at 17:15; Status UNV Amlodipine Besylate (Norvasc) 10 mg BID PO Last administered on 01/25/18at 09: 27; Start 01/23/18 at 21:00; Stop 01/25/18 at 16:22; Status DC Ascorbic Acid (Vitamin C) 500 mg DAILY PO Last administered on 01/26/18at 07:56 ; Start 01/24/18 at 09:00 Aspirin (Ecotrin) 81 mg DAILY PO Last administered on 01/26/18at 07:53; Start 01/24/18 at 09:00 Clopidogrel Bisulfate (Plavix) 75 mg DAILY PO Last administered on 01/26/18 07:54; Start 01/24/18 at 09:00 Glipizide (Glucotrol) 5 mg BIDAC PO Last administered on 01/26/18at 07:54; Start 01/24/18 at 07:30 Lisinopril (Prinivil) 40 mg BID PO Last administered on 01/25/18at 09:26; Start 01/23/18 at 21:00; Stop 01/25/18 at 16:23; Status DC Metoprolol Tartrate (Lopressor) 25 mg DAILY PO Last administered on 01/25/18 09:28; Start 01/24/18 at 09:00; Stop 01/25/18 at 16:22; Status DC Hydrochlorothiazide (Microzide) 12.5 mg DAILY PO Last administered on at 07:54; Start 01/24/18 at 09:00 Levothyroxine Sodium (Synthroid) 25 mcg DAILY06 PO Last administered on at 06:28; Start 01/24/18 at 06:00 Metformin HCl (Glucophage) 500 mg BIDWMEALS PO Last administered on 01/26/18at 07:54; Start 01/23/18 at 18:00 Multivitamins/ Minerals (I-Erica) 1 tab DAILY PO Last administered on at 07:54; Start 01/24/18 at 09:00 Sodium Chloride (Normal Saline Flush 3ml) 3 ml QSHIFT PRN IV AFTER MEDS AND BLOOD DRAWS; Start 01/23/18 at 17:30 Sodium Chloride 1,000 ml @ 100 mls/hr Q10H IV Last administered on 01/25/18at 06:11; Start 01/23/18 at 18:00; Stop 01/25/18 at 17:43; Status DC Ondansetron HCl (Zofran) 4 mg PRN Q4HRS PRN IV NAUSEA/VOMITING; Start at 17:30 Acetaminophen (Tylenol) 650 mg PRN Q4HRS PRN PO TEMP OVER 100.4F OR MILD PAIN; Start 01/23/18 at 17:30 Al Hydroxide/Mg Hydroxide (Mylanta Plus Xs) 30 ml PRN DAILY PRN PO HEARTBURN / GAS; Start 01/23/18 at 17:30 Sodium Monofluorophosphate (Fleet Adult) 133 ml PRN DAILY PRN IA CONSTIPATION; Start 01/23/18 at 17:30 Docusate Sodium (Colace) 100 mg PRN BID PRN PO CONSTIPATION; Start 01/23/18 at 17:30 Albuterol Sulfate (Ventolin Neb Soln) 2.5 mg PRN Q4HRS PRN NEB SHORTNESS OF BREATH; Start 01/23/18 at 17:30 Guaifenesin (Robitussin) 200 mg PRN Q4HRS PRN PO COUGH Last administered on at 01:17; Start 01/23/18 at 17:30 Enoxaparin Sodium (Lovenox 40mg Syringe) 40 mg DAILY SQ ; Start 01/24/18 at 09: 00 Vancomycin HCl 1 gm/Dextrose 250 ml @ 250 mls/hr 1X ONCE IV ; Start 01/23/18 at 17:30; Stop 01/23/18 at 18:29; Status UNV Vancomycin HCl (Vanco Per Pharmacy) 1 each PRN DAILY PRN MC SEE COMMENTS; Start 01/23/18 at 17:30; Status UNV Acetaminophen/ Hydrocodone Bitart (Lortab 5/325) 1 tab PRN Q6HRS PRN PO MOD TO SEVERE PAIN; Start 01/23/18 at 18:30 Vancomycin HCl 1.25 gm/Sodium Chloride 250 ml @ 250 mls/hr Q18H IV Last administered on 01/25/18at 07:25; Start 01/24/18 at 12:00; Stop 01/25/18 at 09 :00; Status DC Vancomycin HCl (Vancomycin Trough Level) 1 each 1X ONCE MC Last administered on 01/25/18at 06:30; Start 01/25/18 at 05:30; Stop 01/25/18 at 05:31; Status DC Lactobacillus Rhamnosus (Culturelle) 1 cap BID PO Last administered on at 07:53; Start 01/24/18 at 21:00 Vancomycin HCl 1.25 gm/Sodium Chloride 250 ml @ 250 mls/hr Q12H IV Last administered on 01/26/18at 07:57; Start 01/25/18 at 20:00 Amlodipine Besylate (Norvasc) 10 mg DAILY PO Last administered on 01/26/18at 07 :55; Start 01/26/18 at 09:00 Lisinopril (Prinivil) 40 mg DAILY PO Last administered on 01/26/18at 07:56; Start 01/26/18 at 09:00 Active Scripts Active Reported Remedy Phytoplex Antifungal (Miconazole Nitrate) 85 Gm Powder 1 Alia TP DAILY Loratadine 10 Mg Tablet 10 Mg PO DAILY Ascorbic Acid 500 Mg Tablet 500 Mg PO BID Hydrochlorothiazide Capsule (Hydrochlorothiazide) 12.5 Mg Capsule 12.5 Mg PO DAILY Glipizide 5 Mg Tablet 1 Tab PO BIDWMEALS Clopidogrel (Clopidogrel Bisulfate) 75 Mg Tablet 75 Mg PO DAILY Tylenol (Acetaminophen) 325 Mg Tablet 325 Mg PO PRN Q4HRS Metformin Hcl 500 Mg Tablet 500 Mg PO BIDWMEALS Lisinopril 20 Mg Tablet 40 Tab PO DAILY Levothyroxine Sodium 25 Mcg Tablet 25 Mcg PO DAILY Aspir 81 (Aspirin) 81 Mg Tablet.dr 81 Mg PO DAILY Amlodipine Besylate 5 Mg Tablet 10 Mg PO DAILY Vitals/I & O Vital Sign - Last 24 Hours 01/25/18 01/25/18 01/25/18 01/25/18 15:00 19:20 20:00 23:02 Temp 97.6 98.5 98.5 97.6 98.5 98.5 Pulse 76 78 91 Resp 16 18 18 B/P (MAP) 118/68 (85) 133/65 (87) 140/62 (88) Pulse Ox 99 96 97 O2 Delivery Room Air Room Air Room Air Room Air 01/26/18 01/26/18 01/26/18 01/26/18 03:27 07:00 07:55 07:56 Temp 98.6 97.3 98.6 97.3 Pulse 82 70 70 70 Resp 18 16 B/P (MAP) 130/52 (78) 139/75 (96) 139/75 139/75 Pulse Ox 94 97 O2 Delivery Room Air Room Air 01/26/18 01/26/18 08:15 11:00 Temp 97.7 97.7 Pulse 75 Resp 18 B/P (MAP) 130/64 (86) Pulse Ox 98 O2 Delivery Room Air Room Air Intake and Output 01/25/18 01/25/18 01/26/18 15:00 23:00 07:00 Intake Total 300 ml 720 ml Balance 300 ml 720 ml ERIKA REEVES III DO Jan 26, 2018 12:07
[2018-01-26] MEDS: VANCOMYCIN PER PHARMACY MC PRN (13:34)
[2018-01-26 15:00] VITALS: BP 149/79
[2018-01-26 19:00] VITALS: BP 114/70
[2018-01-26 23:00] VITALS: BP 136/63
[2018-01-27 03:00] VITALS: BP 121/59
[2018-01-27 05:03] LABS: BASO # 0.1 x10^3/uL (0.0-0.2); BASO % 1 % (0-3); EOS # 0.9 x10^3/uL (0.0-0.7); EOS % 10 % (0-3); HEMATOCRIT 34.6 % (39.0-53.0); HEMOGLOBIN 12.4 g/dL (13.0-17.5); LYMPH # 2.8 x10^3/uL (1.0-4.8); LYMPH % 30 % (24-48); MEAN CORPUSCULAR HEMOGLOBIN 32 pg (25-35); MEAN CORPUSCULAR HGB CONC 36 g/dL (31-37); MEAN CORPUSCULAR VOLUME 89 fL (79-100); MONO # 0.9 x10^3/uL (0.0-1.1); MONO % 10 % (0-9); NEUT # 4.6 x10^3uL (1.8-7.7); NEUT % 49 % (31-73); PLATELET COUNT 242 x10^3/uL (140-400); RED BLOOD COUNT 3.87 x10^6/uL (4.30-5.70); RED CELL DISTRIBUTION WIDTH 13.5 % (11.5-14.5); WHITE BLOOD COUNT 9.4 x10^3/uL (4.0-11.0)
[2018-01-27 05:13] LABS: CALCIUM 8.5 mg/dL (8.5-10.1); GFR 74.8; POTASSIUM 3.8 mmol/L (3.5-5.1)
[2018-01-27] MEDS: MEROPENEM 500 MG in IV NORMAL SALINE 50ML 50 ML IV SCH ×3 (06:47→21:49)
[2018-01-27] MEDS: LEVOTHYROXINE 25 MCG TABLET. PO SCH (06:47)
[2018-01-27 07:00] VITALS: BP 112/69
[2018-01-27] MEDS: INSULIN LISPRO 300 UNITS/3 ML INSULN.PEN. SQ SCH ×3 (08:00→17:15)
[2018-01-27 08:28] LABS: VANC TR 24.7 mcg/mL (10.0-20.0)
[2018-01-27] MEDS: guaiFENesin ORAL 200 MG/10 ML LIQUID. PO PRN ×2 (08:51→17:10)
[2018-01-27] MEDS: LISINOPRIL 20 MG TABLET PO SCH (08:52)
[2018-01-27] MEDS: MULTIVITAMIN I-VITE TABLET. PO SCH (08:53)
[2018-01-27] MEDS: glipiZIDE 5 MG TABLET PO SCH ×2 (08:53→17:11)
[2018-01-27] MEDS: ASPIRIN ENTERIC COATED 81 MG TABLET.DR. PO SCH (08:53)
[2018-01-27] MEDS: amLODIPine BESYLATE 10 MG TABLET PO SCH (08:53)
[2018-01-27] MEDS: CLOPIDOGREL BISULFATE 75 MG TABLET PO SCH (08:53)
[2018-01-27] MEDS: ASCORBIC ACID 500 MG TABLET PO SCH (08:53)
[2018-01-27] MEDS: DOCUSATE SODIUM 100 MG CAPSULE. PO PRN (08:53)
[2018-01-27] MEDS: LACTOBACILLUS RHAMNOSUS GG 1 CAPSULE. PO SCH ×2 (08:54→21:49)
[2018-01-27] MEDS: metFORMIN 500 MG TABLET PO SCH ×2 (08:54→17:11)
[2018-01-27] MEDS: hydroCHLOROthiazide 12.5 MG CAPSULE PO SCH (08:59)
[2018-01-27] MEDS: ENOXAPARIN 40 MG/0.4 ML SYRINGE. SQ SCH (09:00)
[2018-01-27] MEDS: VANCOMYCIN PER PHARMACY MC PRN ×2 (09:16→21:47)
[2018-01-27 11:00] VITALS: BP 108/69
--- NOTE | 2018-01-27 12:11 | PDOC ---
PROGRESS NOTES Chief Complaint Chief Complaint Left diabetic foot cellulitis/osteomyelitis Hyperglycemia H/o DM H/o PAD H/o MRSA H/o cognitive disability H/o HTN H/o hypothyroidism H/o amputation (2 toes on left foot) History of Present Illness History of Present Illness Pt seen and examined while sitting in bed Pt was very pleasant and polite Discussed w/RN Pt states that he has had a cough for the last few days, but is otherwise feeling well. Vitals Vitals Vital Signs Date Time Temp Pulse Resp B/P (MAP) Pulse Ox O2 Delivery O2 Flow Rate FiO2 01/27/18 11:00 98.2 82 18 108/69 (82) 99 Room Air 98.2 Physical Exam Physical Exam Neck: Supple, no JVP, no lymphadenopathy General: Alert, Cooperative, No acute distress Heart: Regular rate, Normal S1, Normal S2 Lungs: Clear Abdomen: Normal bowel sounds, Soft, No tenderness Extremities: No cyanosis, Other (L foot dressing dry and intact) Skin: No rashes Labs LABS Laboratory Tests Test 01/26/18 16:28 01/26/18 20:55 01/27/18 04:00 01/27/18 07:40 Glucose (Fingerstick) 210 mg/dL (70-99) 170 mg/dL (70-99) White Blood Count 9.4 x10^3/uL (4.0-11.0) Red Blood Count 3.87 x10^6/uL (4.30-5.70) Hemoglobin 12.4 g/dL (13.0-17.5) Hematocrit 34.6 % (39.0-53.0) Mean Corpuscular Volume 89 fL (79-100) Mean Corpuscular Hemoglobin 32 pg (25-35) Mean Corpuscular Hemoglobin Concent 36 g/dL (31-37) Red Cell Distribution Width 13.5 % (11.5-14.5) Platelet Count 242 x10^3/uL (140-400) Neutrophils (%) (Auto) 49 % (31-73) Lymphocytes (%) (Auto) 30 % (24-48) Monocytes (%) (Auto) 10 % (0-9) Eosinophils (%) (Auto) 10 % (0-3) Basophils (%) (Auto) 1 % (0-3) Neutrophils # (Auto) 4.6 x10^3uL (1.8-7.7) Lymphocytes # (Auto) 2.8 x10^3/uL (1.0-4.8) Monocytes # (Auto) 0.9 x10^3/uL (0.0-1.1) Eosinophils # (Auto) 0.9 x10^3/uL (0.0-0.7) Basophils # (Auto) 0.1 x10^3/uL (0.0-0.2) Sodium Level 145 mmol/L (136-145) Potassium Level 3.8 mmol/L (3.5-5.1) Chloride Level 108 mmol/L (98-107) Carbon Dioxide Level 30 mmol/L (21-32) Anion Gap 7 (6-14) Blood Urea Nitrogen 29 mg/dL (8-26) Creatinine 1.0 mg/dL (0.7-1.3) Estimated GFR (Cockcroft-Gault) 74.8 Glucose Level 105 mg/dL (70-99) Calcium Level 8.5 mg/dL (8.5-10.1) Vancomycin Level Trough 24.7 mcg/mL (10.0-20.0) Vancomycin Last Dose Date 01/26/18 Vancomycin Last Dose Time 2000 Test 01/27/18 07:41 01/27/18 11:42 Glucose (Fingerstick) 119 mg/dL (70-99) 106 mg/dL (70-99) Review of Systems Review of Systems Pt denies CP, SOB, and abdominal pain. Assessment and Plan Assessmemt and Plan Assessment: Left diabetic foot cellulitis/osteomyelitis Hyperglycemia H/o DM H/o PAD H/o MRSA H/o cognitive disability H/o HTN H/o hypothyroidism H/o amputation (2 toes on left foot) Plan: Cont per ortho Cont IV abx Wound care PRN pain meds Labs Home meds DTV ppx PT/OT Comment Review of Relevant I have reviewed the following items billy (where applicable) has been applied. Labs Laboratory Tests Test 01/25/18 16:32 01/25/18 19:49 01/26/18 03:10 01/26/18 07:35 Glucose (Fingerstick) 149 mg/dL (70-99) 225 mg/dL (70-99) 98 mg/dL (70-99) White Blood Count 9.4 x10^3/uL (4.0-11.0) Red Blood Count 3.78 x10^6/uL (4.30-5.70) Hemoglobin 12.4 g/dL (13.0-17.5) Hematocrit 34.1 % (39.0-53.0) Mean Corpuscular Volume 90 fL (79-100) Mean Corpuscular Hemoglobin 33 pg (25-35) Mean Corpuscular Hemoglobin Concent 36 g/dL (31-37) Red Cell Distribution Width 13.3 % (11.5-14.5) Platelet Count 251 x10^3/uL (140-400) Neutrophils (%) (Auto) 46 % (31-73) Lymphocytes (%) (Auto) 31 % (24-48) Monocytes (%) (Auto) 12 % (0-9) Eosinophils (%) (Auto) 11 % (0-3) Basophils (%) (Auto) 1 % (0-3) Neutrophils # (Auto) 4.4 x10^3uL (1.8-7.7) Lymphocytes # (Auto) 2.9 x10^3/uL (1.0-4.8) Monocytes # (Auto) 1.1 x10^3/uL (0.0-1.1) Eosinophils # (Auto) 1.0 x10^3/uL (0.0-0.7) Basophils # (Auto) 0.1 x10^3/uL (0.0-0.2) Sodium Level 147 mmol/L (136-145) Potassium Level 3.7 mmol/L (3.5-5.1) Chloride Level 109 mmol/L (98-107) Carbon Dioxide Level 25 mmol/L (21-32) Anion Gap 13 (6-14) Blood Urea Nitrogen 27 mg/dL (8-26) Creatinine 1.1 mg/dL (0.7-1.3) Estimated GFR (Cockcroft-Gault) 67.0 Glucose Level 129 mg/dL (70-99) Calcium Level 8.0 mg/dL (8.5-10.1) Test 01/26/18 11:06 01/26/18 16:28 01/26/18 20:55 01/27/18 04:00 Glucose (Fingerstick) 111 mg/dL (70-99) 210 mg/dL (70-99) 170 mg/dL (70-99) White Blood Count 9.4 x10^3/uL (4.0-11.0) Red Blood Count 3.87 x10^6/uL (4.30-5.70) Hemoglobin 12.4 g/dL (13.0-17.5) Hematocrit 34.6 % (39.0-53.0) Mean Corpuscular Volume 89 fL (79-100) Mean Corpuscular Hemoglobin 32 pg (25-35) Mean Corpuscular Hemoglobin Concent 36 g/dL (31-37) Red Cell Distribution Width 13.5 % (11.5-14.5) Platelet Count 242 x10^3/uL (140-400) Neutrophils (%) (Auto) 49 % (31-73) Lymphocytes (%) (Auto) 30 % (24-48) Monocytes (%) (Auto) 10 % (0-9) Eosinophils (%) (Auto) 10 % (0-3) Basophils (%) (Auto) 1 % (0-3) Neutrophils # (Auto) 4.6 x10^3uL (1.8-7.7) Lymphocytes # (Auto) 2.8 x10^3/uL (1.0-4.8) Monocytes # (Auto) 0.9 x10^3/uL (0.0-1.1) Eosinophils # (Auto) 0.9 x10^3/uL (0.0-0.7) Basophils # (Auto) 0.1 x10^3/uL (0.0-0.2) Sodium Level 145 mmol/L (136-145) Potassium Level 3.8 mmol/L (3.5-5.1) Chloride Level 108 mmol/L (98-107) Carbon Dioxide Level 30 mmol/L (21-32) Anion Gap 7 (6-14) Blood Urea Nitrogen 29 mg/dL (8-26) Creatinine 1.0 mg/dL (0.7-1.3) Estimated GFR (Cockcroft-Gault) 74.8 Glucose Level 105 mg/dL (70-99) Calcium Level 8.5 mg/dL (8.5-10.1) Test 01/27/18 07:40 01/27/18 07:41 01/27/18 11:42 Vancomycin Level Trough 24.7 mcg/mL (10.0-20.0) Vancomycin Last Dose Date 01/26/18 Vancomycin Last Dose Time 1999 Glucose (Fingerstick) 119 mg/dL (70-99) 106 mg/dL (70-99) Laboratory Tests Test 01/26/18 16:28 01/26/18 20:55 01/27/18 04:00 01/27/18 07:40 Glucose (Fingerstick) 210 mg/dL (70-99) 170 mg/dL (70-99) White Blood Count 9.4 x10^3/uL (4.0-11.0) Red Blood Count 3.87 x10^6/uL (4.30-5.70) Hemoglobin 12.4 g/dL (13.0-17.5) Hematocrit 34.6 % (39.0-53.0) Mean Corpuscular Volume 89 fL (79-100) Mean Corpuscular Hemoglobin 32 pg (25-35) Mean Corpuscular Hemoglobin Concent 36 g/dL (31-37) Red Cell Distribution Width 13.5 % (11.5-14.5) Platelet Count 242 x10^3/uL (140-400) Neutrophils (%) (Auto) 49 % (31-73) Lymphocytes (%) (Auto) 30 % (24-48) Monocytes (%) (Auto) 10 % (0-9) Eosinophils (%) (Auto) 10 % (0-3) Basophils (%) (Auto) 1 % (0-3) Neutrophils # (Auto) 4.6 x10^3uL (1.8-7.7) Lymphocytes # (Auto) 2.8 x10^3/uL (1.0-4.8) Monocytes # (Auto) 0.9 x10^3/uL (0.0-1.1) Eosinophils # (Auto) 0.9 x10^3/uL (0.0-0.7) Basophils # (Auto) 0.1 x10^3/uL (0.0-0.2) Sodium Level 145 mmol/L (136-145) Potassium Level 3.8 mmol/L (3.5-5.1) Chloride Level 108 mmol/L (98-107) Carbon Dioxide Level 30 mmol/L (21-32) Anion Gap 7 (6-14) Blood Urea Nitrogen 29 mg/dL (8-26) Creatinine 1.0 mg/dL (0.7-1.3) Estimated GFR (Cockcroft-Gault) 74.8 Glucose Level 105 mg/dL (70-99) Calcium Level 8.5 mg/dL (8.5-10.1) Vancomycin Level Trough 24.7 mcg/mL (10.0-20.0) Vancomycin Last Dose Date 01/26/18 Vancomycin Last Dose Time 2000 Test 01/27/18 07:41 01/27/18 11:42 Glucose (Fingerstick) 119 mg/dL (70-99) 106 mg/dL (70-99) Microbiology 01/23/18 Blood Culture - Preliminary, Resulted NO GROWTH AFTER 3 DAYS 01/23/18 Anaerobic/Aerobic Culture - Preliminary, Resulted 01/23/18 Anaerobic Culture Result 1 (ILDA) - Preliminary, Resulted 01/23/18 Aerobic Culture - Preliminary, Resulted 01/23/18 Aerobic Culture Result 1 (ILDA) - Preliminary, Resulted 01/23/18 Gram Stain - Final, Resulted 01/23/18 Gram Stain Result 1 (ILDA) - Final, Resulted 01/23/18 Gram Stain Result 2 (ILDA) - Final, Resulted 01/23/18 Gram Stain Result 3 (ILDA) - Final, Resulted Medications Current Medications Vancomycin HCl (Vanco Per Pharmacy) 1 each PRN DAILY PRN MC SEE COMMENTS Last administered on 01/27/18at 09:16; Start 01/23/18 at 17:15 Meropenem 500 mg/ Sodium Chloride 50 ml @ 100 mls/hr Q8HRS IV Last administered on 01/27/18at 06:47; Start 01/23/18 at 22:00 Sodium Chloride 1,000 ml @ 75 mls/hr [id number] IV ; Start 01/23/18 at 17:15; Status Cancel Insulin Human Lispro (HumaLOG) 0-5 UNITS TIDWMEALS SQ ; Start 01/23/18 at 17:30 Dextrose (Dextrose 50%-Water Syringe) 12.5 gm PRN Q15MIN PRN IV SEE COMMENTS; Start 01/23/18 at 17:15 Vancomycin HCl 1.75 gm/Sodium Chloride 500 ml @ 250 mls/hr 1X ONCE IV Last administered on 01/23/18at 17:58; Start 01/23/18 at 17:30; Stop 01/23/18 at 19 :29; Status DC Meropenem 500 mg/ Sodium Chloride 50 ml @ 100 mls/hr 1X ONCE IV Last administered on 01/23/18at 17:57; Start 01/23/18 at 17:30; Stop 01/23/18 at 17 :59; Status DC Acetaminophen (Tylenol) 650 mg PRN Q4HRS PO ; Start 01/23/18 at 17:15; Status UNV Amlodipine Besylate (Norvasc) 10 mg BID PO Last administered on 01/25/18at 09: 27; Start 01/23/18 at 21:00; Stop 01/25/18 at 16:22; Status DC Ascorbic Acid (Vitamin C) 500 mg DAILY PO Last administered on 01/27/18at 08:53 ; Start 01/24/18 at 09:00 Aspirin (Ecotrin) 81 mg DAILY PO Last administered on 01/27/18at 08:53; Start 01/24/18 at 09:00 Clopidogrel Bisulfate (Plavix) 75 mg DAILY PO Last administered on 01/27/18at 08:53; Start 01/24/18 at 09:00 Glipizide (Glucotrol) 5 mg BIDAC PO Last administered on 01/27/18 08:53; Start 01/24/18 at 07:30 Lisinopril (Prinivil) 40 mg BID PO Last administered on 01/25/18 09:26; Start 01/23/18 at 21:00; Stop 01/25/18 at 16:23; Status DC Metoprolol Tartrate (Lopressor) 25 mg DAILY PO Last administered on 01/25/18 09:28; Start 01/24/18 at 09:00; Stop 01/25/18 at 16:22; Status DC Hydrochlorothiazide (Microzide) 12.5 mg DAILY PO Last administered on at 08:59; Start 01/24/18 at 09:00 Levothyroxine Sodium (Synthroid) 25 mcg DAILY06 PO Last administered on at 06:47; Start 01/24/18 at 06:00 Metformin HCl (Glucophage) 500 mg BIDWMEALS PO Last administered on 01/27/18at 08:54; Start 01/23/18 at 18:00 Multivitamins/ Minerals (I-Erica) 1 tab DAILY PO Last administered on at 08:53; Start 01/24/18 at 09:00 Sodium Chloride (Normal Saline Flush 3ml) 3 ml QSHIFT PRN IV AFTER MEDS AND BLOOD DRAWS; Start 01/23/18 at 17:30 Sodium Chloride 1,000 ml @ 100 mls/hr Q10H IV Last administered on 01/25/18at 06:11; Start 01/23/18 at 18:00; Stop 01/25/18 at 17:43; Status DC Ondansetron HCl (Zofran) 4 mg PRN Q4HRS PRN IV NAUSEA/VOMITING; Start at 17:30 Acetaminophen (Tylenol) 650 mg PRN Q4HRS PRN PO TEMP OVER 100.4F OR MILD PAIN; Start 01/23/18 at 17:30 Al Hydroxide/Mg Hydroxide (Mylanta Plus Xs) 30 ml PRN DAILY PRN PO HEARTBURN / GAS; Start 01/23/18 at 17:30 Sodium Monofluorophosphate (Fleet Adult) 133 ml PRN DAILY PRN MD CONSTIPATION; Start 01/23/18 at 17:30 Docusate Sodium (Colace) 100 mg PRN BID PRN PO CONSTIPATION Last administered on 01/27/18at 08:53; Start 01/23/18 at 17:30 Albuterol Sulfate (Ventolin Neb Soln) 2.5 mg PRN Q4HRS PRN NEB SHORTNESS OF BREATH; Start 01/23/18 at 17:30 Guaifenesin (Robitussin) 200 mg PRN Q4HRS PRN PO COUGH Last administered on at 08:51; Start 01/23/18 at 17:30 Enoxaparin Sodium (Lovenox 40mg Syringe) 40 mg DAILY SQ ; Start 01/24/18 at 09: 00 Vancomycin HCl 1 gm/Dextrose 250 ml @ 250 mls/hr 1X ONCE IV ; Start 01/23/18 at 17:30; Stop 01/23/18 at 18:29; Status UNV Vancomycin HCl (Vanco Per Pharmacy) 1 each PRN DAILY PRN MC SEE COMMENTS; Start 01/23/18 at 17:30; Status UNV Acetaminophen/ Hydrocodone Bitart (Lortab 5/325) 1 tab PRN Q6HRS PRN PO MOD TO SEVERE PAIN; Start 01/23/18 at 18:30 Vancomycin HCl 1.25 gm/Sodium Chloride 250 ml @ 250 mls/hr Q18H IV Last administered on 01/25/18at 07:25; Start 01/24/18 at 12:00; Stop 01/25/18 at 09 :00; Status DC Vancomycin HCl (Vancomycin Trough Level) 1 each 1X ONCE MC Last administered on 01/25/18at 06:30; Start 01/25/18 at 05:30; Stop 01/25/18 at 05:31; Status DC Lactobacillus Rhamnosus (Culturelle) 1 cap BID PO Last administered on at 08:54; Start 01/24/18 at 21:00 Vancomycin HCl 1.25 gm/Sodium Chloride 250 ml @ 250 mls/hr Q12H IV Last administered on 01/26/18at 19:59; Start 01/25/18 at 20:00; Stop 01/27/18 at 08 :54; Status DC Amlodipine Besylate (Norvasc) 10 mg DAILY PO Last administered on 01/27/18at 08 :53; Start 01/26/18 at 09:00 Lisinopril (Prinivil) 40 mg DAILY PO Last administered on 01/27/18at 08:52; Start 01/26/18 at 09:00 Vancomycin HCl (Vancomycin Trough Level) 1 each 1X ONCE MC ; Start 01/27/18 at 07:30; Stop 01/27/18 at 07:31; Status DC Ondansetron HCl (Zofran) 4 mg PRN Q6HRS PRN IV NAUSEA/VOMITING; Start at 07:00; Stop 01/30/18 at 06:59 Fentanyl Citrate (Fentanyl 2ml Vial) 25 mcg PRN Q5MIN PRN IV MILD PAIN; Start 01/29/18 at 07:00; Stop 01/30/18 at 06:59 Fentanyl Citrate (Fentanyl 2ml Vial) 50 mcg PRN Q5MIN PRN IV MODERATE TO SEVERE PAIN; Start 01/29/18 at 07:00; Stop 01/30/18 at 06:59 Morphine Sulfate (Morphine Sulfate) 1 mg PRN Q10MIN PRN IV SEVERE PAIN; Start 01/29/18 at 07:00; Stop 01/30/18 at 06:59 Ringer's Solution 1,000 ml @ 30 mls/hr Q24H IV ; Start 01/29/18 at 07:00; Stop 01/29/18 at 18:59 Lidocaine HCl (Xylocaine-Mpf 1% 2ml Vial) 2 ml PRN 1X PRN ID PRIOR TO IV START ; Start 01/29/18 at 07:00; Stop 01/30/18 at 06:59 Hydromorphone HCl (Dilaudid) 0.5 mg PRN Q10MIN PRN IV SEV PAIN, Second choice; Start 01/29/18 at 07:00; Stop 01/30/18 at 06:59 Prochlorperazine Edisylate (Compazine) 5 mg PACU PRN PRN IV NAUSEA, MRX1; Start 01/29/18 at 07:00; Stop 01/30/18 at 06:59 Vancomycin HCl (Vancomycin Random Level) 1 each 1X ONCE MC ; Start 01/27/18 at 19:00; Stop 01/27/18 at 19:01 Active Scripts Active Reported Remedy Phytoplex Antifungal (Miconazole Nitrate) 85 Gm Powder 1 Alia TP DAILY Loratadine 10 Mg Tablet 10 Mg PO DAILY Ascorbic Acid 500 Mg Tablet 500 Mg PO BID Hydrochlorothiazide Capsule (Hydrochlorothiazide) 12.5 Mg Capsule 12.5 Mg PO DAILY Glipizide 5 Mg Tablet 1 Tab PO BIDWMEALS Clopidogrel (Clopidogrel Bisulfate) 75 Mg Tablet 75 Mg PO DAILY Tylenol (Acetaminophen) 325 Mg Tablet 325 Mg PO PRN Q4HRS Metformin Hcl 500 Mg Tablet 500 Mg PO BIDWMEALS Lisinopril 20 Mg Tablet 40 Tab PO DAILY Levothyroxine Sodium 25 Mcg Tablet 25 Mcg PO DAILY Aspir 81 (Aspirin) 81 Mg Tablet.dr 81 Mg PO DAILY Amlodipine Besylate 5 Mg Tablet 10 Mg PO DAILY Vitals/I & O Vital Sign - Last 24 Hours 01/26/18 01/26/18 01/26/18 01/26/18 15:00 19:00 20:00 23:00 Temp 97.5 98.3 98.0 97.5 98.3 98.0 Pulse 79 81 84 Resp 18 18 18 B/P (MAP) 149/79 (102) 114/70 (85) 136/63 (87) Pulse Ox 98 98 97 O2 Delivery Room Air Room Air Room Air Room Air 01/27/18 01/27/18 01/27/18 01/27/18 03:00 07:00 08:00 08:52 Temp 97.7 98.1 97.7 98.1 Pulse 70 83 83 Resp 18 18 B/P (MAP) 121/59 (79) 112/69 (83) 112/69 Pulse Ox 97 97 O2 Delivery Room Air Room Air Room Air 01/27/18 01/27/18 08:53 11:00 Temp 98.2 98.2 Pulse 83 82 Resp 18 B/P (MAP) 112/69 108/69 (82) Pulse Ox 99 O2 Delivery Room Air Intake and Output 01/26/18 01/26/18 01/27/18 15:00 23:00 07:00 Intake Total 500 ml Balance 500 ml ERIKA REEVES III DO Jan 27, 2018 12:11
[2018-01-27] MEDS: BENZONATATE 100 MG CAPSULE. PO SCH ×2 (13:37→17:10)
[2018-01-27 15:00] VITALS: BP 117/72
--- NOTE | 2018-01-27 15:44 | PDOC ---
Infectious Disease Note Subjective Subjective Feeling alright Denies pain/F/C/N/V/D ROS ROS per HPI otherwise neg Vital Sign Vital Signs Vital Signs Date Time Temp Pulse Resp B/P (MAP) Pulse Ox O2 Delivery O2 Flow Rate FiO2 01/27/18 11:00 98.2 82 18 108/69 (82) 99 Room Air 98.2 Physical Exam PHYSICAL EXAM GENERAL: Sitting on the side of the bed, smiling HEENT: Oral cavity pink NECK: Supple LUNGS: Clear. HEART: S1, S2 regular. ABDOMEN: Obese, soft, NT EXTREMITIES: BLE edema 1+. Left foot bandaged/dry NEUROLOGIC: Alert and oriented x 3 Labs Lab Laboratory Tests Test 01/26/18 16:28 01/26/18 20:55 01/27/18 04:00 01/27/18 07:40 Glucose (Fingerstick) 210 mg/dL (70-99) 170 mg/dL (70-99) White Blood Count 9.4 x10^3/uL (4.0-11.0) Red Blood Count 3.87 x10^6/uL (4.30-5.70) Hemoglobin 12.4 g/dL (13.0-17.5) Hematocrit 34.6 % (39.0-53.0) Mean Corpuscular Volume 89 fL (79-100) Mean Corpuscular Hemoglobin 32 pg (25-35) Mean Corpuscular Hemoglobin Concent 36 g/dL (31-37) Red Cell Distribution Width 13.5 % (11.5-14.5) Platelet Count 242 x10^3/uL (140-400) Neutrophils (%) (Auto) 49 % (31-73) Lymphocytes (%) (Auto) 30 % (24-48) Monocytes (%) (Auto) 10 % (0-9) Eosinophils (%) (Auto) 10 % (0-3) Basophils (%) (Auto) 1 % (0-3) Neutrophils # (Auto) 4.6 x10^3uL (1.8-7.7) Lymphocytes # (Auto) 2.8 x10^3/uL (1.0-4.8) Monocytes # (Auto) 0.9 x10^3/uL (0.0-1.1) Eosinophils # (Auto) 0.9 x10^3/uL (0.0-0.7) Basophils # (Auto) 0.1 x10^3/uL (0.0-0.2) Sodium Level 145 mmol/L (136-145) Potassium Level 3.8 mmol/L (3.5-5.1) Chloride Level 108 mmol/L (98-107) Carbon Dioxide Level 30 mmol/L (21-32) Anion Gap 7 (6-14) Blood Urea Nitrogen 29 mg/dL (8-26) Creatinine 1.0 mg/dL (0.7-1.3) Estimated GFR (Cockcroft-Gault) 74.8 Glucose Level 105 mg/dL (70-99) Calcium Level 8.5 mg/dL (8.5-10.1) Vancomycin Level Trough 24.7 mcg/mL (10.0-20.0) Vancomycin Last Dose Date 01/26/18 Vancomycin Last Dose Time 2000 Test 01/27/18 07:41 01/27/18 11:42 Glucose (Fingerstick) 119 mg/dL (70-99) 106 mg/dL (70-99) Micro Foot wound AEROBIC RES 1 Preliminary Enterobacter cloacae BLOOD CULTURE Preliminary NO GROWTH AFTER 3 DAYS Objective Assessment Osteomyelitis of 3 rd met. Enterobacter DM PAD HTN Plan Plan of Care Vancomycin managed by pharmacy.Trough 24.7 Continue meropenem f/u cultures Surgery on Monday Monitor labs/renal function supportive care Patient seen and examined. Chart reviewed in detail.case discussed with IT TECHNICIAN> Agree with above plan. FARHAT RUEDA APRN Jan 27, 2018 15:44 FAVIAN SARAH MD Jan 27, 2018 22:47
--- NOTE | 2018-01-27 15:46 | PDOC ---
SURGICAL PROGRESS NOTE Subjective He is without new complaints. No significant foot pain. Vital Signs Vital Signs Date Time Temp Pulse Resp B/P (MAP) Pulse Ox O2 Delivery O2 Flow Rate FiO2 01/27/18 11:00 98.2 82 18 108/69 (82) 99 Room Air 98.2 I&O Intake and Output 01/27/18 07:00 Intake Total 500 ml Balance 500 ml Intake Oral 500 ml # Voids 5 General: Alert, No acute distress Heart: Regular rate Extremities: Other (Left distal and plantar ulcers in the region of the left 3rd met head. No erythema.) Labs reviewed I have reviewed the following Reviewed the MRI foot results. Assessment/Plan Left 3rd metatarsal head osteomyelitis Left foot ulcer Peripheral neuropathy Would likely benefit from left 3rd metatarsal head resection and foot debridement due to osteomyelitis and chronic foot wound. JOE DAIGLE MD Jan 27, 2018 15:46
[2018-01-27 19:00] VITALS: BP 136/67
[2018-01-27] MEDS ORDERED: VANCOMYCIN RANDOM LEVEL. MC ONE (19:00)
[2018-01-27] MEDS: VANCOMYCIN 1.25 GM in IV NORMAL SALINE 250ML 250 ML IV SCH (22:37)
[2018-01-27 22:53] VITALS: BP 130/65
[2018-01-28 03:00] VITALS: BP 125/60
[2018-01-28] MEDS: LEVOTHYROXINE 25 MCG TABLET. PO SCH (06:13)
[2018-01-28] MEDS: MEROPENEM 500 MG in IV NORMAL SALINE 50ML 50 ML IV SCH ×3 (06:14→22:00)
[2018-01-28 07:00] VITALS: BP 115/68
[2018-01-28] MEDS: INSULIN LISPRO 300 UNITS/3 ML INSULN.PEN. SQ SCH ×3 (08:00→17:00)
[2018-01-28] MEDS: ASCORBIC ACID 500 MG TABLET PO SCH (08:49)
[2018-01-28] MEDS: BENZONATATE 100 MG CAPSULE. PO SCH ×3 (08:49→21:02)
[2018-01-28] MEDS: metFORMIN 500 MG TABLET PO SCH ×2 (08:50→17:18)
[2018-01-28] MEDS: hydroCHLOROthiazide 12.5 MG CAPSULE PO SCH (08:50)
[2018-01-28] MEDS: MULTIVITAMIN I-VITE TABLET. PO SCH (08:50)
[2018-01-28] MEDS: LACTOBACILLUS RHAMNOSUS GG 1 CAPSULE. PO SCH ×2 (08:50→21:02)
[2018-01-28] MEDS: DOCUSATE SODIUM 100 MG CAPSULE. PO PRN (08:50)
[2018-01-28] MEDS: CLOPIDOGREL BISULFATE 75 MG TABLET PO SCH (08:50)
[2018-01-28] MEDS: LISINOPRIL 20 MG TABLET PO SCH (08:55)
[2018-01-28] MEDS: ASPIRIN ENTERIC COATED 81 MG TABLET.DR. PO SCH (08:55)
[2018-01-28] MEDS: amLODIPine BESYLATE 10 MG TABLET PO SCH (08:55)
[2018-01-28] MEDS: ENOXAPARIN 40 MG/0.4 ML SYRINGE. SQ SCH (08:56)
[2018-01-28] MEDS: glipiZIDE 5 MG TABLET PO SCH ×2 (08:56→17:18)
[2018-01-28] MEDS: guaiFENesin ORAL 200 MG/10 ML LIQUID. PO PRN (08:59)
--- NOTE | 2018-01-28 09:55 | PDOC ---
Provider Note Provider Note He is without new complaints. Left foot dressing intact. Plan left foot debridement tomorrow with possible wound vac placement. Risks/benefits discussed. He acknowledged and elects to proceed. JOE DAIGLE MD Jan 28, 2018 09:55
[2018-01-28 11:00] VITALS: BP 128/68
[2018-01-28] MEDS: VANCOMYCIN PER PHARMACY MC PRN (11:03)
--- NOTE | 2018-01-28 12:00 | PDOC ---
Infectious Disease Note Subjective Subjective Finished taking a shower and his dressing was just changed by RN Feeling fine, denies pain + cough dry ROS ROS per HPI otherwise neg Vital Sign Vital Signs Vital Signs Date Time Temp Pulse Resp B/P (MAP) Pulse Ox O2 Delivery O2 Flow Rate FiO2 01/28/18 08:55 85 115/69 01/28/18 07:00 98.1 97 Room Air 98.1 01/28/18 03:00 18 Physical Exam PHYSICAL EXAM GENERAL: Sitting in the chair, smiling HEENT: Oral cavity pink. No thrush NECK: Supple LUNGS: Clear. HEART: S1, S2 regular. ABDOMEN: Obese, soft, NT EXTREMITIES: BLE edema 1+. Left foot bandaged/dry NEUROLOGIC: Alert and oriented x 3 SKIN: no rash PIV ok Labs Lab Laboratory Tests Test 01/27/18 16:50 01/27/18 19:00 01/27/18 20:53 01/28/18 07:43 Glucose (Fingerstick) 186 mg/dL (70-99) 199 mg/dL (70-99) 123 mg/dL (70-99) Random Vancomycin Level 17.4 mcg/mL Micro Foot wound AEROBIC RES 1 Preliminary Enterobacter cloacae GRAM STAIN RES 2 Final Comment Many gram negative rods. GRAM STAIN RES 3 Final Comment Few gram positive rods. BLOOD CULTURE Preliminary NO GROWTH AFTER 4 DAYS Objective Assessment Osteomyelitis of 3 rd met. GPC & GNR. growth of Enterobacter so far DM PAD HTN Plan Plan of Care Vancomycin managed by pharmacy.Trough 24.7 Continue meropenem f/u cultures Surgery on Monday Monitor labs/renal function Probiotics supportive care D/w RN Patient seen and examined. Chart reviewed in detail. Case discussed with REGIONAL MEDICAL DIRECTOR. Agree with above Plan. FARHAT RUEDA APRN Jan 28, 2018 12:00 FAVIAN SARAH MD Jan 28, 2018 19:18
[2018-01-28 12:39] LABS: BASO # 0.1 x10^3/uL (0.0-0.2); BASO % 1 % (0-3); EOS % 11 % (0-3); HEMOGLOBIN 13.1 g/dL (13.0-17.5); LYMPH # 2.7 x10^3/uL (1.0-4.8); LYMPH % 28 % (24-48); MEAN CORPUSCULAR HEMOGLOBIN 32 pg (25-35); MEAN CORPUSCULAR HGB CONC 35 g/dL (31-37); MEAN CORPUSCULAR VOLUME 90 fL (79-100); MONO # 0.9 x10^3/uL (0.0-1.1); MONO % 9 % (0-9); NEUT # 4.8 x10^3uL (1.8-7.7); NEUT % 51 % (31-73); PLATELET COUNT 255 x10^3/uL (140-400); RED BLOOD COUNT 4.11 x10^6/uL (4.30-5.70); RED CELL DISTRIBUTION WIDTH 13.2 % (11.5-14.5); WHITE BLOOD COUNT 9.5 x10^3/uL (4.0-11.0)
[2018-01-28 12:51] LABS: CALCIUM 8.6 mg/dL (8.5-10.1); GFR 74.8
--- NOTE | 2018-01-28 14:45 | RAD ---
Examination: CHEST PA LATERAL History: dry hacking cough for 1 week. Comparison/Correlation: 01/23/2018 portable chest x-ray exam Findings: PA and lateral views of the chest were obtained. Heart size and pulmonary vasculature are normal. No infiltrate or pleural effusion. No pneumothorax. Bony structures are unremarkable. Impression: No active disease. Electronically signed by: Raj Sarmiento MD (01/28/2018 2:41 PM) [facility]
[2018-01-28 15:28] VITALS: BP 122/76
[2018-01-28] MEDS: VANCOMYCIN 1.25 GM in IV NORMAL SALINE 250ML 250 ML IV SCH (17:18)
[2018-01-28 19:00] VITALS: BP 135/71
[2018-01-28 22:51] VITALS: BP 130/70
[2018-01-28] MEDS: PROMETH/CODEINE 6.25/10MG 5 ML SYRUP. PO PRN (23:08)
[2018-01-29] VITALS (12 sets, daily range): BP systolic 111–146; BP diastolic 53–101
[2018-01-29 03:35] LABS: BASO # 0.1 x10^3/uL (0.0-0.2); BASO % 1 % (0-3); EOS % 10 % (0-3); HEMATOCRIT 36.8 % (39.0-53.0); LYMPH # 3.1 x10^3/uL (1.0-4.8); LYMPH % 32 % (24-48); MEAN CORPUSCULAR HEMOGLOBIN 32 pg (25-35); MEAN CORPUSCULAR HGB CONC 35 g/dL (31-37); MEAN CORPUSCULAR VOLUME 90 fL (79-100); MONO % 11 % (0-9); NEUT # 4.3 x10^3uL (1.8-7.7); NEUT % 45 % (31-73); PLATELET COUNT 237 x10^3/uL (140-400); RED BLOOD COUNT 4.09 x10^6/uL (4.30-5.70); RED CELL DISTRIBUTION WIDTH 13.6 % (11.5-14.5); WHITE BLOOD COUNT 9.5 x10^3/uL (4.0-11.0)
[2018-01-29 04:24] LABS: CALCIUM 8.3 mg/dL (8.5-10.1); CREATININE 1.1 mg/dL (0.7-1.3); POTASSIUM 4.1 mmol/L (3.5-5.1)
[2018-01-29] MEDS: LEVOTHYROXINE 25 MCG TABLET. PO SCH (06:00)
[2018-01-29] MEDS: MEROPENEM 500 MG in IV NORMAL SALINE 50ML 50 ML IV SCH ×3 (06:12→22:09)
[2018-01-29] MEDS ORDERED: ONDANSETRON PF 4 MG/2 ML VIAL. IV PRN (07:00)
[2018-01-29] MEDS ORDERED: HYDROmorphone 2 MG/ML VIAL IV PRN (07:00)
[2018-01-29] MEDS ORDERED: fentaNYL PF VIAL 100 MCG/2 ML VIAL IV PRN ×2 (07:00)
[2018-01-29] MEDS ORDERED: IV RINGERS,LACTATED 1000ML 1,000 ML IV SCH (07:00)
[2018-01-29] MEDS ORDERED: LIDOCAINE 1% PF 2 ML VIAL. ID PRN (07:00)
[2018-01-29] MEDS ORDERED: PROCHLORPERAZINE 10 MG/2 ML VIAL. IV PRN (07:00)
[2018-01-29] MEDS ORDERED: MORPHINE SULFATE 2 MG/ML VIAL. IV PRN (07:00)
[2018-01-29] MEDS: glipiZIDE 5 MG TABLET PO SCH ×2 (07:30→16:24)
[2018-01-29] MEDS: metFORMIN 500 MG TABLET PO SCH ×2 (08:00→16:24)
[2018-01-29] MEDS: INSULIN LISPRO 300 UNITS/3 ML INSULN.PEN. SQ SCH ×3 (08:00→16:19)
[2018-01-29] MEDS: LACTOBACILLUS RHAMNOSUS GG 1 CAPSULE. PO SCH ×2 (08:11→22:09)
[2018-01-29] MEDS: ASPIRIN ENTERIC COATED 81 MG TABLET.DR. PO SCH (08:12)
[2018-01-29] MEDS: MULTIVITAMIN I-VITE TABLET. PO SCH (08:12)
[2018-01-29] MEDS: ENOXAPARIN 40 MG/0.4 ML SYRINGE. SQ SCH (09:00)
[2018-01-29] MEDS: hydroCHLOROthiazide 12.5 MG CAPSULE PO SCH (09:00)
[2018-01-29] MEDS: BENZONATATE 100 MG CAPSULE. PO SCH ×3 (09:00→22:09)
[2018-01-29] MEDS: ASCORBIC ACID 500 MG TABLET PO SCH (09:00)
[2018-01-29] MEDS: CLOPIDOGREL BISULFATE 75 MG TABLET PO SCH (09:00)
[2018-01-29] MEDS: amLODIPine BESYLATE 10 MG TABLET PO SCH (09:23)
[2018-01-29] MEDS: VANCOMYCIN 1.25 GM in IV NORMAL SALINE 250ML 250 ML IV SCH (10:00)
[2018-01-29] MEDS: VANCOMYCIN PER PHARMACY MC PRN (10:22)
[2018-01-29] MEDS ORDERED: FAMOTIDINE 20 MG/2 ML VIAL ONE ×2 (12:42→13:07)
[2018-01-29] MEDS ORDERED: DEXAMETHASONE SOD PHOS 20 MG/5 ML VIAL. ONE (12:42)
[2018-01-29] MEDS ORDERED: LIDOCAINE 2% PF Vial for OR 5 ML VIAL. ONE (12:42)
[2018-01-29] MEDS ORDERED: ONDANSETRON PF 4 MG/2 ML VIAL. ONE (12:42)
[2018-01-29] MEDS ORDERED: MIDAZOLAM HCL/PF 2 MG/2 ML VIAL. ONE (12:42)
[2018-01-29] MEDS ORDERED: PROPOFOL 20 ML IV ONE (12:42)
[2018-01-29] MEDS ORDERED: fentaNYL PF VIAL 100 MCG/2 ML VIAL ONE ×2 (12:42→14:21)
--- NOTE | 2018-01-29 13:31 | PDOC ---
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 No thrush NECK: Supple LUNGS: Clear. HEART: S1, S2 regular. ABDOMEN: Obese, soft, NT EXTREMITIES: BLE edema 1+. Left foot bandaged, there is s a small open wound with some discharge, no tenderness. weak pulse. NEUROLOGIC: Alert and oriented x 3 SKIN: no rash PIV ok General: Alert, No acute distress Heart: Regular rate Lungs: Clear Abdomen: Normal bowel sounds, Soft, No tenderness Extremities: Other (Left distal and plantar ulcers in the region of the left 3rd met head. No erythema.) Skin: No rashes Labs LABS Laboratory Tests Test 01/28/18 16:13 01/28/18 20:59 01/29/18 03:10 01/29/18 07:19 Glucose (Fingerstick) 120 mg/dL (70-99) 283 mg/dL (70-99) 128 mg/dL (70-99) White Blood Count 9.5 x10^3/uL (4.0-11.0) Red Blood Count 4.09 x10^6/uL (4.30-5.70) Hemoglobin 13.0 g/dL (13.0-17.5) Hematocrit 36.8 % (39.0-53.0) Mean Corpuscular Volume 90 fL (79-100) Mean Corpuscular Hemoglobin 32 pg (25-35) Mean Corpuscular Hemoglobin Concent 35 g/dL (31-37) Red Cell Distribution Width 13.6 % (11.5-14.5) Platelet Count 237 x10^3/uL (140-400) Neutrophils (%) (Auto) 45 % (31-73) Lymphocytes (%) (Auto) 32 % (24-48) Monocytes (%) (Auto) 11 % (0-9) Eosinophils (%) (Auto) 10 % (0-3) Basophils (%) (Auto) 1 % (0-3) Neutrophils # (Auto) 4.3 x10^3uL (1.8-7.7) Lymphocytes # (Auto) 3.1 x10^3/uL (1.0-4.8) Monocytes # (Auto) 1.0 x10^3/uL (0.0-1.1) Eosinophils # (Auto) 1.0 x10^3/uL (0.0-0.7) Basophils # (Auto) 0.1 x10^3/uL (0.0-0.2) Sodium Level 144 mmol/L (136-145) Potassium Level 4.1 mmol/L (3.5-5.1) Chloride Level 106 mmol/L (98-107) Carbon Dioxide Level 28 mmol/L (21-32) Anion Gap 10 (6-14) Blood Urea Nitrogen 44 mg/dL (8-26) Creatinine 1.1 mg/dL (0.7-1.3) Estimated GFR (Cockcroft-Gault) 67.0 Glucose Level 160 mg/dL (70-99) Calcium Level 8.3 mg/dL (8.5-10.1) Test 01/29/18 11:10 Glucose (Fingerstick) 111 mg/dL (70-99) Comment Review of Relevant I have reviewed the following items billy (where applicable) has been applied. Labs Laboratory Tests Test 01/27/18 16:50 01/27/18 19:00 01/27/18 20:53 01/28/18 07:43 Glucose (Fingerstick) 186 mg/dL (70-99) 199 mg/dL (70-99) 123 mg/dL (70-99) Random Vancomycin Level 17.4 mcg/mL Test 01/28/18 11:49 01/28/18 12:15 01/28/18 16:13 01/28/18 20:59 Glucose (Fingerstick) 104 mg/dL (70-99) 120 mg/dL (70-99) 283 mg/dL (70-99) White Blood Count 9.5 x10^3/uL (4.0-11.0) Red Blood Count 4.11 x10^6/uL (4.30-5.70) Hemoglobin 13.1 g/dL (13.0-17.5) Hematocrit 37.0 % (39.0-53.0) Mean Corpuscular Volume 90 fL (79-100) Mean Corpuscular Hemoglobin 32 pg (25-35) Mean Corpuscular Hemoglobin Concent 35 g/dL (31-37) Red Cell Distribution Width 13.2 % (11.5-14.5) Platelet Count 255 x10^3/uL (140-400) Neutrophils (%) (Auto) 51 % (31-73) Lymphocytes (%) (Auto) 28 % (24-48) Monocytes (%) (Auto) 9 % (0-9) Eosinophils (%) (Auto) 11 % (0-3) Basophils (%) (Auto) 1 % (0-3) Neutrophils # (Auto) 4.8 x10^3uL (1.8-7.7) Lymphocytes # (Auto) 2.7 x10^3/uL (1.0-4.8) Monocytes # (Auto) 0.9 x10^3/uL (0.0-1.1) Eosinophils # (Auto) 1.0 x10^3/uL (0.0-0.7) Basophils # (Auto) 0.1 x10^3/uL (0.0-0.2) Sodium Level 142 mmol/L (136-145) Potassium Level 4.0 mmol/L (3.5-5.1) Chloride Level 103 mmol/L (98-107) Carbon Dioxide Level 30 mmol/L (21-32) Anion Gap 9 (6-14) Blood Urea Nitrogen 32 mg/dL (8-26) Creatinine 1.0 mg/dL (0.7-1.3) Estimated GFR (Cockcroft-Gault) 74.8 Glucose Level 96 mg/dL (70-99) Calcium Level 8.6 mg/dL (8.5-10.1) Test 01/29/18 03:10 01/29/18 07:19 01/29/18 11:10 White Blood Count 9.5 x10^3/uL (4.0-11.0) Red Blood Count 4.09 x10^6/uL (4.30-5.70) Hemoglobin 13.0 g/dL (13.0-17.5) Hematocrit 36.8 % (39.0-53.0) Mean Corpuscular Volume 90 fL (79-100) Mean Corpuscular Hemoglobin 32 pg (25-35) Mean Corpuscular Hemoglobin Concent 35 g/dL (31-37) Red Cell Distribution Width 13.6 % (11.5-14.5) Platelet Count 237 x10^3/uL (140-400) Neutrophils (%) (Auto) 45 % (31-73) Lymphocytes (%) (Auto) 32 % (24-48) Monocytes (%) (Auto) 11 % (0-9) Eosinophils (%) (Auto) 10 % (0-3) Basophils (%) (Auto) 1 % (0-3) Neutrophils # (Auto) 4.3 x10^3uL (1.8-7.7) Lymphocytes # (Auto) 3.1 x10^3/uL (1.0-4.8) Monocytes # (Auto) 1.0 x10^3/uL (0.0-1.1) Eosinophils # (Auto) 1.0 x10^3/uL (0.0-0.7) Basophils # (Auto) 0.1 x10^3/uL (0.0-0.2) Sodium Level 144 mmol/L (136-145) Potassium Level 4.1 mmol/L (3.5-5.1) Chloride Level 106 mmol/L (98-107) Carbon Dioxide Level 28 mmol/L (21-32) Anion Gap 10 (6-14) Blood Urea Nitrogen 44 mg/dL (8-26) Creatinine 1.1 mg/dL (0.7-1.3) Estimated GFR (Cockcroft-Gault) 67.0 Glucose Level 160 mg/dL (70-99) Calcium Level 8.3 mg/dL (8.5-10.1) Glucose (Fingerstick) 128 mg/dL (70-99) 111 mg/dL (70-99) Laboratory Tests Test 01/28/18 16:13 01/28/18 20:59 01/29/18 03:10 01/29/18 07:19 Glucose (Fingerstick) 120 mg/dL (70-99) 283 mg/dL (70-99) 128 mg/dL (70-99) White Blood Count 9.5 x10^3/uL (4.0-11.0) Red Blood Count 4.09 x10^6/uL (4.30-5.70) Hemoglobin 13.0 g/dL (13.0-17.5) Hematocrit 36.8 % (39.0-53.0) Mean Corpuscular Volume 90 fL (79-100) Mean Corpuscular Hemoglobin 32 pg (25-35) Mean Corpuscular Hemoglobin Concent 35 g/dL (31-37) Red Cell Distribution Width 13.6 % (11.5-14.5) Platelet Count 237 x10^3/uL (140-400) Neutrophils (%) (Auto) 45 % (31-73) Lymphocytes (%) (Auto) 32 % (24-48) Monocytes (%) (Auto) 11 % (0-9) Eosinophils (%) (Auto) 10 % (0-3) Basophils (%) (Auto) 1 % (0-3) Neutrophils # (Auto) 4.3 x10^3uL (1.8-7.7) Lymphocytes # (Auto) 3.1 x10^3/uL (1.0-4.8) Monocytes # (Auto) 1.0 x10^3/uL (0.0-1.1) Eosinophils # (Auto) 1.0 x10^3/uL (0.0-0.7) Basophils # (Auto) 0.1 x10^3/uL (0.0-0.2) Sodium Level 144 mmol/L (136-145) Potassium Level 4.1 mmol/L (3.5-5.1) Chloride Level 106 mmol/L (98-107) Carbon Dioxide Level 28 mmol/L (21-32) Anion Gap 10 (6-14) Blood Urea Nitrogen 44 mg/dL (8-26) Creatinine 1.1 mg/dL (0.7-1.3) Estimated GFR (Cockcroft-Gault) 67.0 Glucose Level 160 mg/dL (70-99) Calcium Level 8.3 mg/dL (8.5-10.1) Test 01/29/18 11:10 Glucose (Fingerstick) 111 mg/dL (70-99) Microbiology 01/23/18 Blood Culture - Final, Complete NO GROWTH AFTER 5 DAYS 01/23/18 Anaerobic/Aerobic Culture - Preliminary, Resulted 01/23/18 Anaerobic Culture Result 1 (ILDA) - Preliminary, Resulted 01/23/18 Aerobic Culture - Preliminary, Resulted 01/23/18 Aerobic Culture Result 1 (ILDA) - Preliminary, Resulted 01/23/18 Aerobic Culture Result 2 (ILDA) - Preliminary, Resulted 01/23/18 Antimicrobic Susceptibility - Preliminary, Resulted 01/23/18 Gram Stain - Final, Resulted 01/23/18 Gram Stain Result 1 (ILDA) - Final, Resulted 01/23/18 Gram Stain Result 2 (ILDA) - Final, Resulted 01/23/18 Gram Stain Result 3 (ILDA) - Final, Resulted Medications Current Medications Vancomycin HCl (Vanco Per Pharmacy) 1 each PRN DAILY PRN MC SEE COMMENTS Last administered on 01/29/18at 10:22; Start 01/23/18 at 17:15 Meropenem 500 mg/ Sodium Chloride 50 ml @ 100 mls/hr Q8HRS IV Last administered on 01/29/18at 06:12; Start 01/23/18 at 22:00 Sodium Chloride 1,000 ml @ 75 mls/hr [id number] IV ; Start 01/23/18 at 17:15; Status Cancel Insulin Human Lispro (HumaLOG) 0-5 UNITS TIDWMEALS SQ Last administered on at 17:15; Start 01/23/18 at 17:30 Dextrose (Dextrose 50%-Water Syringe) 12.5 gm PRN Q15MIN PRN IV SEE COMMENTS; Start 01/23/18 at 17:15 Vancomycin HCl 1.75 gm/Sodium Chloride 500 ml @ 250 mls/hr 1X ONCE IV Last administered on 01/23/18at 17:58; Start 01/23/18 at 17:30; Stop 01/23/18 at 19 :29; Status DC Meropenem 500 mg/ Sodium Chloride 50 ml @ 100 mls/hr 1X ONCE IV Last administered on 01/23/18at 17:57; Start 01/23/18 at 17:30; Stop 01/23/18 at 17 :59; Status DC Acetaminophen (Tylenol) 650 mg PRN Q4HRS PO ; Start 01/23/18 at 17:15; Status UNV Amlodipine Besylate (Norvasc) 10 mg BID PO Last administered on 01/25/18at 09: 27; Start 01/23/18 at 21:00; Stop 01/25/18 at 16:22; Status DC Ascorbic Acid (Vitamin C) 500 mg DAILY PO Last administered on 01/28/18at 08:49 ; Start 01/24/18 at 09:00 Aspirin (Ecotrin) 81 mg DAILY PO Last administered on 01/28/18at 08:55; Start 01/24/18 at 09:00 Clopidogrel Bisulfate (Plavix) 75 mg DAILY PO Last administered on 01/28/18at 08:50; Start 01/24/18 at 09:00 Glipizide (Glucotrol) 5 mg BIDAC PO Last administered on 01/28/18at 17:18; Start 01/24/18 at 07:30 Lisinopril (Prinivil) 40 mg BID PO Last administered on 01/25/18at 09:26; Start 01/23/18 at 21:00; Stop 01/25/18 at 16:23; Status DC Metoprolol Tartrate (Lopressor) 25 mg DAILY PO Last administered on 01/25/18at 09:28; Start 01/24/18 at 09:00; Stop 01/25/18 at 16:22; Status DC Hydrochlorothiazide (Microzide) 12.5 mg DAILY PO Last administered on at 08:50; Start 01/24/18 at 09:00 Levothyroxine Sodium (Synthroid) 25 mcg DAILY06 PO Last administered on at 06:13; Start 01/24/18 at 06:00 Metformin HCl (Glucophage) 500 mg BIDWMEALS PO Last administered on 01/28/18at 17:18; Start 01/23/18 at 18:00 Multivitamins/ Minerals (I-Erica) 1 tab DAILY PO Last administered on at 08:50; Start 01/24/18 at 09:00 Sodium Chloride (Normal Saline Flush 3ml) 3 ml QSHIFT PRN IV AFTER MEDS AND BLOOD DRAWS; Start 01/23/18 at 17:30 Sodium Chloride 1,000 ml @ 100 mls/hr Q10H IV Last administered on 01/25/18at 06:11; Start 01/23/18 at 18:00; Stop 01/25/18 at 17:43; Status DC Ondansetron HCl (Zofran) 4 mg PRN Q4HRS PRN IV NAUSEA/VOMITING; Start at 17:30 Acetaminophen (Tylenol) 650 mg PRN Q4HRS PRN PO TEMP OVER 100.4F OR MILD PAIN; Start 01/23/18 at 17:30 Al Hydroxide/Mg Hydroxide (Mylanta Plus Xs) 30 ml PRN DAILY PRN PO HEARTBURN / GAS; Start 01/23/18 at 17:30 Sodium Monofluorophosphate (Fleet Adult) 133 ml PRN DAILY PRN MT CONSTIPATION; Start 01/23/18 at 17:30 Docusate Sodium (Colace) 100 mg PRN BID PRN PO CONSTIPATION Last administered on 01/28/18at 08:50; Start 01/23/18 at 17:30 Albuterol Sulfate (Ventolin Neb Soln) 2.5 mg PRN Q4HRS PRN NEB SHORTNESS OF BREATH; Start 01/23/18 at 17:30 Guaifenesin (Robitussin) 200 mg PRN Q4HRS PRN PO COUGH Last administered on at 08:59; Start 01/23/18 at 17:30 Enoxaparin Sodium (Lovenox 40mg Syringe) 40 mg DAILY SQ ; Start 01/24/18 at 09: 00 Vancomycin HCl 1 gm/Dextrose 250 ml @ 250 mls/hr 1X ONCE IV ; Start 01/23/18 at 17:30; Stop 01/23/18 at 18:29; Status UNV Vancomycin HCl (Vanco Per Pharmacy) 1 each PRN DAILY PRN MC SEE COMMENTS; Start 01/23/18 at 17:30; Status UNV Acetaminophen/ Hydrocodone Bitart (Lortab 5/325) 1 tab PRN Q6HRS PRN PO MOD TO SEVERE PAIN; Start 01/23/18 at 18:30 Vancomycin HCl 1.25 gm/Sodium Chloride 250 ml @ 250 mls/hr Q18H IV Last administered on 01/25/18at 07:25; Start 01/24/18 at 12:00; Stop 01/25/18 at 09 :00; Status DC Vancomycin HCl (Vancomycin Trough Level) 1 each 1X ONCE MC Last administered on 01/25/18at 06:30; Start 01/25/18 at 05:30; Stop 01/25/18 at 05:31; Status DC Lactobacillus Rhamnosus (Culturelle) 1 cap BID PO Last administered on at 21:02; Start 01/24/18 at 21:00 Vancomycin HCl 1.25 gm/Sodium Chloride 250 ml @ 250 mls/hr Q12H IV Last administered on 01/26/18at 19:59; Start 01/25/18 at 20:00; Stop 01/27/18 at 08 :54; Status DC Amlodipine Besylate (Norvasc) 10 mg DAILY PO Last administered on 01/29/18at 09 :23; Start 01/26/18 at 09:00 Lisinopril (Prinivil) 40 mg DAILY PO Last administered on 01/28/18at 08:55; Start 01/26/18 at 09:00; Stop 01/28/18 at 13:54; Status DC Vancomycin HCl (Vancomycin Trough Level) 1 each 1X ONCE MC ; Start 01/27/18 at 07:30; Stop 01/27/18 at 07:31; Status DC Ondansetron HCl (Zofran) 4 mg PRN Q6HRS PRN IV NAUSEA/VOMITING; Start at 07:00; Stop 01/30/18 at 06:59 Fentanyl Citrate (Fentanyl 2ml Vial) 25 mcg PRN Q5MIN PRN IV MILD PAIN; Start 01/29/18 at 07:00; Stop 01/30/18 at 06:59 Fentanyl Citrate (Fentanyl 2ml Vial) 50 mcg PRN Q5MIN PRN IV MODERATE TO SEVERE PAIN; Start 01/29/18 at 07:00; Stop 01/30/18 at 06:59 Morphine Sulfate (Morphine Sulfate) 1 mg PRN Q10MIN PRN IV SEVERE PAIN; Start 01/29/18 at 07:00; Stop 01/30/18 at 06:59 Ringer's Solution 1,000 ml @ 30 mls/hr Q24H IV ; Start 01/29/18 at 07:00; Stop 01/29/18 at 18:59 Lidocaine HCl (Xylocaine-Mpf 1% 2ml Vial) 2 ml PRN 1X PRN ID PRIOR TO IV START ; Start 01/29/18 at 07:00; Stop 01/30/18 at 06:59 Hydromorphone HCl (Dilaudid) 0.5 mg PRN Q10MIN PRN IV SEV PAIN, Second choice; Start 01/29/18 at 07:00; Stop 01/30/18 at 06:59 Prochlorperazine Edisylate (Compazine) 5 mg PACU PRN PRN IV NAUSEA, MRX1; Start 01/29/18 at 07:00; Stop 01/30/18 at 06:59 Vancomycin HCl (Vancomycin Random Level) 1 each 1X ONCE MC Last administered on 01/27/18at 19:00; Start 01/27/18 at 19:00; Stop 01/27/18 at 19:01; Status DC Benzonatate (Tessalon Perle) 100 mg [id number] PO Last administered on 01/28/18at 21:02; Start 01/27/18 at 14:00 Vancomycin HCl 1.25 gm/Sodium Chloride 250 ml @ 166.667 mls/hr Q18H IV Last administered on 01/29/18at 10:00; Start 01/27/18 at 22:00 Promethazine HCl/ Codeine (Phenergan With Codeine Oral Syrup) 5 ml PRN Q4HRS PRN PO COUGH 2ND CHOICE Last administered on 01/28/18at 23:08; Start 01/28/18 at 14:00 Propofol 20 ml @ As Directed STK-MED ONCE IV ; Start 01/29/18 at 12:42; Stop 01/29/18 at 12:43; Status DC Dexamethasone Sodium Phosphate (Decadron) 20 mg STK-MED ONCE .ROUTE ; Start at 12:42; Stop 01/29/18 at 12:43; Status DC Famotidine (Pepcid Vial) 20 mg STK-MED ONCE .ROUTE ; Start 01/29/18 at 12:42; Stop 01/29/18 at 12:43; Status DC Lidocaine HCl (Lidocaine Pf 2% Vial) 5 ml STK-MED ONCE .ROUTE ; Start 01/29/18 at 12:42; Stop 01/29/18 at 12:43; Status DC Ondansetron HCl (Zofran) 4 mg STK-MED ONCE .ROUTE ; Start 01/29/18 at 12:42; Stop 01/29/18 at 12:43; Status DC Fentanyl Citrate (Fentanyl 2ml Vial) 100 mcg STK-MED ONCE .ROUTE ; Start at 12:42; Stop 01/29/18 at 12:43; Status DC Midazolam HCl (Versed) 2 mg STK-MED ONCE .ROUTE ; Start 01/29/18 at 12:42; Stop 01/29/18 at 12:43; Status DC Cefazolin Sodium 1 gm/Sodium Chloride 250 ml @ 250 mls/hr 1X ONCE IV ; Start 01/29/18 at 13:00; Stop 01/29/18 at 13:59 Famotidine (Pepcid Vial) 20 mg STK-MED ONCE .ROUTE ; Start 01/29/18 at 13:07; Stop 01/29/18 at 13:08; Status DC Active Scripts Active Reported Remedy Phytoplex Antifungal (Miconazole Nitrate) 85 Gm Powder 1 Alia TP DAILY Loratadine 10 Mg Tablet 10 Mg PO DAILY Ascorbic Acid 500 Mg Tablet 500 Mg PO BID Hydrochlorothiazide Capsule (Hydrochlorothiazide) 12.5 Mg Capsule 12.5 Mg PO DAILY Glipizide 5 Mg Tablet 1 Tab PO BIDWMEALS Clopidogrel (Clopidogrel Bisulfate) 75 Mg Tablet 75 Mg PO DAILY Tylenol (Acetaminophen) 325 Mg Tablet 325 Mg PO PRN Q4HRS Metformin Hcl 500 Mg Tablet 500 Mg PO BIDWMEALS Lisinopril 20 Mg Tablet 40 Tab PO DAILY Levothyroxine Sodium 25 Mcg Tablet 25 Mcg PO DAILY Aspir 81 (Aspirin) 81 Mg Tablet.dr 81 Mg PO DAILY Amlodipine Besylate 5 Mg Tablet 10 Mg PO DAILY Vitals/I & O Vital Sign - Last 24 Hours 01/28/18 01/28/18 01/28/18 01/28/18 15:28 19:00 20:00 22:51 Temp 97.8 97.9 97.7 97.8 97.9 97.7 Pulse 77 80 81 Resp 16 16 16 B/P (MAP) 122/76 (91) 135/71 (92) 130/70 (90) Pulse Ox 98 97 97 O2 Delivery Room Air Room Air Room Air Room Air 01/29/18 01/29/18 01/29/18 01/29/18 03:00 07:00 09:23 11:00 Temp 97.7 98.2 97.6 97.7 98.2 97.6 Pulse 86 80 80 79 Resp 16 16 18 B/P (MAP) 133/81 (98) 146/81 (102) 146/81 142/73 (96) Pulse Ox 97 97 97 O2 Delivery Room Air Room Air Room Air 01/29/18 12:50 Temp 97.6 97.6 Pulse 79 Resp 14 B/P (MAP) 142/73 Pulse Ox 98 O2 Delivery Room Air Intake and Output 01/28/18 01/28/18 01/29/18 15:00 23:00 07:00 Intake Total 240 ml Balance 240 ml CONRADO FUNK MD Jan 29, 2018 13:31
[2018-01-29] MEDS ORDERED: ePHEDrine PF IN SALINE 50 MG/5 ML DISP.SYRIN IV ONE (13:42)
--- NOTE | 2018-01-29 14:14 | PDOC4 ---
OPERATIVE NOTE: Op note dictated Dx: 1. osteomyelitis left 3rd metatarsal head Op: 1. resection left 3rd metatarsal head and distal 3rd metatarsal Surg: Rica GOT to rr in sat. cond. Pt will have wound vac placed tomorrow WANDA BRADFORD II, MD Jan 29, 2018 14:14
--- NOTE | 2018-01-29 14:43 | OP ---
DATE OF SURGERY: 01/29/2018 PREOPERATIVE DIAGNOSIS: Osteomyelitis, left third metatarsal head. POSTOPERATIVE DIAGNOSIS: Osteomyelitis, left third metatarsal head. OPERATION PERFORMED: Wedge resection of the left third metatarsal head with cultures. SURGEON: Junaid Strauss M.D. ANESTHESIA: General. INDICATIONS: This is a 67-year-old gentleman who has a draining wound from his left forefoot. [facility] Because of persistent drainage and nonhealing, he was referred for evaluation. Studies have shown osteomyelitis involving the metatarsal head. He has had prior amputations of all toes except for the second one. He has a palpable dorsal pedal pulse. DESCRIPTION OF PROCEDURE: The left foot was prepped and draped with Betadine. A timeout was called. The patient received his scheduled antibiotics. A mosquito was placed through the wounds, which were extending from the plantar aspect of the third metatarsal to the dorsal aspect. An incision was then made connecting the two small cutaneous wounds. This incision went directly down to the third metatarsal head, which was obviously infected. There was no gross pus, but the bone was very soft and mushy. Cultures were obtained at this level for aerobes, anaerobes and fungi. Using a rongeur, the metatarsal head and distal metatarsal shaft were resected. This was done down to good healthy bone. A bone culture was sent for margins. The subcutaneous tissues bled nicely as did the deep plantar space tissues. Wound was copiously irrigated and then packed with saline gauze and a dressing was applied. The patient will have a wound VAC placed tomorrow. The patient tolerated the procedure well. JUNAID STRAUSS MD DR: SONALI/marcos JOB#: [id number] / [id number]
[2018-01-29] MEDS: guaiFENesin ORAL 200 MG/10 ML LIQUID. PO PRN (16:24)
[2018-01-29] MEDS: PROMETH/CODEINE 6.25/10MG 5 ML SYRUP. PO PRN (19:09)
[2018-01-29] MEDS ORDERED: INSULIN LISPRO 300 UNITS/3 ML INSULN.PEN. SQ ONE (23:00)
[2018-01-30 03:00] VITALS: BP 128/65
[2018-01-30] MEDS: VANCOMYCIN 1.25 GM in IV NORMAL SALINE 250ML 250 ML IV SCH ×2 (04:00→22:00)
[2018-01-30 05:19] LABS: BASO # 0.1 x10^3/uL (0.0-0.2); BASO % 1 % (0-3); EOS % 0 % (0-3); HEMATOCRIT 33.7 % (39.0-53.0); LYMPH # 1.7 x10^3/uL (1.0-4.8); LYMPH % 14 % (24-48); MEAN CORPUSCULAR HEMOGLOBIN 32 pg (25-35); MEAN CORPUSCULAR HGB CONC 36 g/dL (31-37); MEAN CORPUSCULAR VOLUME 90 fL (79-100); MONO # 0.7 x10^3/uL (0.0-1.1); MONO % 6 % (0-9); NEUT # 9.4 x10^3uL (1.8-7.7); NEUT % 79 % (31-73); PLATELET COUNT 246 x10^3/uL (140-400); RED BLOOD COUNT 3.76 x10^6/uL (4.30-5.70); RED CELL DISTRIBUTION WIDTH 13.3 % (11.5-14.5); WHITE BLOOD COUNT 11.9 x10^3/uL (4.0-11.0)
[2018-01-30] MEDS: glipiZIDE 5 MG TABLET PO SCH ×2 (05:32→17:14)
[2018-01-30] MEDS: LEVOTHYROXINE 25 MCG TABLET. PO SCH (05:32)
[2018-01-30] MEDS: MEROPENEM 500 MG in IV NORMAL SALINE 50ML 50 ML IV SCH ×3 (05:32→21:45)
[2018-01-30 06:33] LABS: CALCIUM 8.4 mg/dL (8.5-10.1); CREATININE 1.2 mg/dL (0.7-1.3); GFR 60.6; POTASSIUM 4.5 mmol/L (3.5-5.1)
[2018-01-30 07:00] VITALS: BP 149/76
[2018-01-30] MEDS: INSULIN LISPRO 300 UNITS/3 ML INSULN.PEN. SQ SCH ×3 (08:00→17:00)
[2018-01-30] MEDS: MULTIVITAMIN I-VITE TABLET. PO SCH (08:14)
[2018-01-30] MEDS: ASPIRIN ENTERIC COATED 81 MG TABLET.DR. PO SCH (08:14)
[2018-01-30] MEDS: BENZONATATE 100 MG CAPSULE. PO SCH ×3 (08:14→21:45)
[2018-01-30] MEDS: amLODIPine BESYLATE 10 MG TABLET PO SCH (08:15)
[2018-01-30] MEDS: ENOXAPARIN 40 MG/0.4 ML SYRINGE. SQ SCH ×2 (08:15→09:00)
[2018-01-30] MEDS: ASCORBIC ACID 500 MG TABLET PO SCH (08:21)
[2018-01-30] MEDS: metFORMIN 500 MG TABLET PO SCH ×3 (08:21→17:16)
[2018-01-30] MEDS: CLOPIDOGREL BISULFATE 75 MG TABLET PO SCH (08:22)
[2018-01-30] MEDS: hydroCHLOROthiazide 12.5 MG CAPSULE PO SCH (08:22)
[2018-01-30] MEDS: LACTOBACILLUS RHAMNOSUS GG 1 CAPSULE. PO SCH ×2 (08:22→21:45)
[2018-01-30] MEDS: VANCOMYCIN PER PHARMACY MC PRN (10:28)
[2018-01-30 11:00] VITALS: BP 132/77
--- NOTE | 2018-01-30 11:23 | PDOC ---
PROGRESS NOTES Subjective Subjective "I want to go to that place across the parking lot. I was just there a month ago." Objective Objective Vascular Surgery - POD#1 Wedge resection of the left third metatarsal head with cultures. O: Patient sitting on side of bed with bloody wet dressing on left foot. Patient has just showered. LLE: Dressing removed. Wound bed is beefy red with healthy tissue. Surrounding tissue without erythema. No drainage present in base. No bone visible in base of wound. Assessment/Plan: 1. Osteomyelitis, left third metatarsal head. POD#1 Wedge resection (open). Continue IV antibiotic therapy per ID. 2. Monitor for OR culture results. 3. Wound vac dressing to be applied today by heat seal operator. 4. Consult case mgmt for placement upon discharge. 5. Off-loading shoe for ambulation. Shoe is at bedside and patient reminded to use. Vital Signs Date Time Temp Pulse Resp B/P (MAP) Pulse Ox O2 Delivery O2 Flow Rate FiO2 01/30/18 08:15 95 128/65 01/30/18 07:00 97.4 16 97 Room Air 97.4 01/29/18 13:57 10 Intake and Output 01/30/18 07:00 Intake Total 320 ml Output Total 200 ml Balance 120 ml Intake Oral 20 ml IV Total 300 ml Output Urine Total 200 ml # Voids 6 Comment Review of Relevant I have reviewed the following items billy (where applicable) has been applied. Labs Laboratory Tests Test 01/28/18 11:49 01/28/18 12:15 01/28/18 16:13 01/28/18 20:59 Glucose (Fingerstick) 104 mg/dL (70-99) 120 mg/dL (70-99) 283 mg/dL (70-99) White Blood Count 9.5 x10^3/uL (4.0-11.0) Red Blood Count 4.11 x10^6/uL (4.30-5.70) Hemoglobin 13.1 g/dL (13.0-17.5) Hematocrit 37.0 % (39.0-53.0) Mean Corpuscular Volume 90 fL (79-100) Mean Corpuscular Hemoglobin 32 pg (25-35) Mean Corpuscular Hemoglobin Concent 35 g/dL (31-37) Red Cell Distribution Width 13.2 % (11.5-14.5) Platelet Count 255 x10^3/uL (140-400) Neutrophils (%) (Auto) 51 % (31-73) Lymphocytes (%) (Auto) 28 % (24-48) Monocytes (%) (Auto) 9 % (0-9) Eosinophils (%) (Auto) 11 % (0-3) Basophils (%) (Auto) 1 % (0-3) Neutrophils # (Auto) 4.8 x10^3uL (1.8-7.7) Lymphocytes # (Auto) 2.7 x10^3/uL (1.0-4.8) Monocytes # (Auto) 0.9 x10^3/uL (0.0-1.1) Eosinophils # (Auto) 1.0 x10^3/uL (0.0-0.7) Basophils # (Auto) 0.1 x10^3/uL (0.0-0.2) Sodium Level 142 mmol/L (136-145) Potassium Level 4.0 mmol/L (3.5-5.1) Chloride Level 103 mmol/L (98-107) Carbon Dioxide Level 30 mmol/L (21-32) Anion Gap 9 (6-14) Blood Urea Nitrogen 32 mg/dL (8-26) Creatinine 1.0 mg/dL (0.7-1.3) Estimated GFR (Cockcroft-Gault) 74.8 Glucose Level 96 mg/dL (70-99) Calcium Level 8.6 mg/dL (8.5-10.1) Test 01/29/18 03:10 01/29/18 07:19 01/29/18 11:10 01/29/18 14:05 White Blood Count 9.5 x10^3/uL (4.0-11.0) Red Blood Count 4.09 x10^6/uL (4.30-5.70) Hemoglobin 13.0 g/dL (13.0-17.5) Hematocrit 36.8 % (39.0-53.0) Mean Corpuscular Volume 90 fL (79-100) Mean Corpuscular Hemoglobin 32 pg (25-35) Mean Corpuscular Hemoglobin Concent 35 g/dL (31-37) Red Cell Distribution Width 13.6 % (11.5-14.5) Platelet Count 237 x10^3/uL (140-400) Neutrophils (%) (Auto) 45 % (31-73) Lymphocytes (%) (Auto) 32 % (24-48) Monocytes (%) (Auto) 11 % (0-9) Eosinophils (%) (Auto) 10 % (0-3) Basophils (%) (Auto) 1 % (0-3) Neutrophils # (Auto) 4.3 x10^3uL (1.8-7.7) Lymphocytes # (Auto) 3.1 x10^3/uL (1.0-4.8) Monocytes # (Auto) 1.0 x10^3/uL (0.0-1.1) Eosinophils # (Auto) 1.0 x10^3/uL (0.0-0.7) Basophils # (Auto) 0.1 x10^3/uL (0.0-0.2) Sodium Level 144 mmol/L (136-145) Potassium Level 4.1 mmol/L (3.5-5.1) Chloride Level 106 mmol/L (98-107) Carbon Dioxide Level 28 mmol/L (21-32) Anion Gap 10 (6-14) Blood Urea Nitrogen 44 mg/dL (8-26) Creatinine 1.1 mg/dL (0.7-1.3) Estimated GFR (Cockcroft-Gault) 67.0 Glucose Level 160 mg/dL (70-99) Calcium Level 8.3 mg/dL (8.5-10.1) Glucose (Fingerstick) 128 mg/dL (70-99) 111 mg/dL (70-99) 103 mg/dL (70-99) Test 01/29/18 16:09 01/29/18 20:55 01/30/18 03:10 01/30/18 07:42 Glucose (Fingerstick) 150 mg/dL (70-99) 442 mg/dL (70-99) 150 mg/dL (70-99) White Blood Count 11.9 x10^3/uL (4.0-11.0) Red Blood Count 3.76 x10^6/uL (4.30-5.70) Hemoglobin 12.0 g/dL (13.0-17.5) Hematocrit 33.7 % (39.0-53.0) Mean Corpuscular Volume 90 fL (79-100) Mean Corpuscular Hemoglobin 32 pg (25-35) Mean Corpuscular Hemoglobin Concent 36 g/dL (31-37) Red Cell Distribution Width 13.3 % (11.5-14.5) Platelet Count 246 x10^3/uL (140-400) Neutrophils (%) (Auto) 79 % (31-73) Lymphocytes (%) (Auto) 14 % (24-48) Monocytes (%) (Auto) 6 % (0-9) Eosinophils (%) (Auto) 0 % (0-3) Basophils (%) (Auto) 1 % (0-3) Neutrophils # (Auto) 9.4 x10^3uL (1.8-7.7) Lymphocytes # (Auto) 1.7 x10^3/uL (1.0-4.8) Monocytes # (Auto) 0.7 x10^3/uL (0.0-1.1) Eosinophils # (Auto) 0.0 x10^3/uL (0.0-0.7) Basophils # (Auto) 0.1 x10^3/uL (0.0-0.2) Sodium Level 143 mmol/L (136-145) Potassium Level 4.5 mmol/L (3.5-5.1) Chloride Level 104 mmol/L (98-107) Carbon Dioxide Level 24 mmol/L (21-32) Anion Gap 15 (6-14) Blood Urea Nitrogen 45 mg/dL (8-26) Creatinine 1.2 mg/dL (0.7-1.3) Estimated GFR (Cockcroft-Gault) 60.6 Glucose Level 223 mg/dL (70-99) Calcium Level 8.4 mg/dL (8.5-10.1) Laboratory Tests Test 01/29/18 14:05 01/29/18 16:09 01/29/18 20:55 01/30/18 03:10 Glucose (Fingerstick) 103 mg/dL (70-99) 150 mg/dL (70-99) 442 mg/dL (70-99) White Blood Count 11.9 x10^3/uL (4.0-11.0) Red Blood Count 3.76 x10^6/uL (4.30-5.70) Hemoglobin 12.0 g/dL (13.0-17.5) Hematocrit 33.7 % (39.0-53.0) Mean Corpuscular Volume 90 fL (79-100) Mean Corpuscular Hemoglobin 32 pg (25-35) Mean Corpuscular Hemoglobin Concent 36 g/dL (31-37) Red Cell Distribution Width 13.3 % (11.5-14.5) Platelet Count 246 x10^3/uL (140-400) Neutrophils (%) (Auto) 79 % (31-73) Lymphocytes (%) (Auto) 14 % (24-48) Monocytes (%) (Auto) 6 % (0-9) Eosinophils (%) (Auto) 0 % (0-3) Basophils (%) (Auto) 1 % (0-3) Neutrophils # (Auto) 9.4 x10^3uL (1.8-7.7) Lymphocytes # (Auto) 1.7 x10^3/uL (1.0-4.8) Monocytes # (Auto) 0.7 x10^3/uL (0.0-1.1) Eosinophils # (Auto) 0.0 x10^3/uL (0.0-0.7) Basophils # (Auto) 0.1 x10^3/uL (0.0-0.2) Sodium Level 143 mmol/L (136-145) Potassium Level 4.5 mmol/L (3.5-5.1) Chloride Level 104 mmol/L (98-107) Carbon Dioxide Level 24 mmol/L (21-32) Anion Gap 15 (6-14) Blood Urea Nitrogen 45 mg/dL (8-26) Creatinine 1.2 mg/dL (0.7-1.3) Estimated GFR (Cockcroft-Gault) 60.6 Glucose Level 223 mg/dL (70-99) Calcium Level 8.4 mg/dL (8.5-10.1) Test 01/30/18 07:42 Glucose (Fingerstick) 150 mg/dL (70-99) Microbiology 01/23/18 Blood Culture - Final, Complete NO GROWTH AFTER 5 DAYS 01/23/18 Anaerobic/Aerobic Culture - Final, Complete 01/23/18 Anaerobic Culture Result 1 (ILDA) - Final, Complete 01/23/18 Aerobic Culture - Final, Complete 01/23/18 Aerobic Culture Result 1 (ILDA) - Final, Complete 01/23/18 Aerobic Culture Result 2 (ILDA) - Final, Complete 01/23/18 Antimicrobic Susceptibility - Final, Complete 01/23/18 Gram Stain - Final, Complete 01/23/18 Gram Stain Result 1 (ILDA) - Final, Complete 01/23/18 Gram Stain Result 2 (ILDA) - Final, Complete 01/23/18 Gram Stain Result 3 (ILDA) - Final, Complete Medications Current Medications Vancomycin HCl (Vanco Per Pharmacy) 1 each PRN DAILY PRN MC SEE COMMENTS Last administered on 01/30/18at 10:28; Start 01/23/18 at 17:15 Meropenem 500 mg/ Sodium Chloride 50 ml @ 100 mls/hr Q8HRS IV Last administered on 01/30/18at 05:32; Start 01/23/18 at 22:00 Sodium Chloride 1,000 ml @ 75 mls/hr [id number] IV ; Start 01/23/18 at 17:15; Status Cancel Insulin Human Lispro (HumaLOG) 0-5 UNITS TIDWMEALS SQ Last administered on at 17:15; Start 01/23/18 at 17:30 Dextrose (Dextrose 50%-Water Syringe) 12.5 gm PRN Q15MIN PRN IV SEE COMMENTS; Start 01/23/18 at 17:15 Vancomycin HCl 1.75 gm/Sodium Chloride 500 ml @ 250 mls/hr 1X ONCE IV Last administered on 01/23/18at 17:58; Start 01/23/18 at 17:30; Stop 01/23/18 at 19 :29; Status DC Meropenem 500 mg/ Sodium Chloride 50 ml @ 100 mls/hr 1X ONCE IV Last administered on 01/23/18at 17:57; Start 01/23/18 at 17:30; Stop 01/23/18 at 17 :59; Status DC Acetaminophen (Tylenol) 650 mg PRN Q4HRS PO ; Start 01/23/18 at 17:15; Status UNV Amlodipine Besylate (Norvasc) 10 mg BID PO Last administered on 01/25/18at 09: 27; Start 01/23/18 at 21:00; Stop 01/25/18 at 16:22; Status DC Ascorbic Acid (Vitamin C) 500 mg DAILY PO Last administered on 01/30/18 08:21 ; Start 01/24/18 at 09:00 Aspirin (Ecotrin) 81 mg DAILY PO Last administered on 01/30/18 08:14; Start 01/24/18 at 09:00 Clopidogrel Bisulfate (Plavix) 75 mg DAILY PO Last administered on 01/30/18 08:22; Start 01/24/18 at 09:00 Glipizide (Glucotrol) 5 mg BIDAC PO Last administered on 01/30/18 05:32; Start 01/24/18 at 07:30 Lisinopril (Prinivil) 40 mg BID PO Last administered on 01/25/18 09:26; Start 01/23/18 at 21:00; Stop 01/25/18 at 16:23; Status DC Metoprolol Tartrate (Lopressor) 25 mg DAILY PO Last administered on 01/25/18 09:28; Start 01/24/18 at 09:00; Stop 01/25/18 at 16:22; Status DC Hydrochlorothiazide (Microzide) 12.5 mg DAILY PO Last administered on 08:22; Start 01/24/18 at 09:00 Levothyroxine Sodium (Synthroid) 25 mcg DAILY06 PO Last administered on 05:32; Start 01/24/18 at 06:00 Metformin HCl (Glucophage) 500 mg BIDWMEALS PO Last administered on 01/30/18 08:21; Start 01/23/18 at 18:00 Multivitamins/ Minerals (I-Erica) 1 tab DAILY PO Last administered on 08:14; Start 01/24/18 at 09:00 Sodium Chloride (Normal Saline Flush 3ml) 3 ml QSHIFT PRN IV AFTER MEDS AND BLOOD DRAWS; Start 01/23/18 at 17:30 Sodium Chloride 1,000 ml @ 100 mls/hr Q10H IV Last administered on 01/25/18 06:11; Start 01/23/18 at 18:00; Stop 01/25/18 at 17:43; Status DC Ondansetron HCl (Zofran) 4 mg PRN Q4HRS PRN IV NAUSEA/VOMITING; Start at 17:30 Acetaminophen (Tylenol) 650 mg PRN Q4HRS PRN PO TEMP OVER 100.4F OR MILD PAIN; Start 01/23/18 at 17:30 Al Hydroxide/Mg Hydroxide (Mylanta Plus Xs) 30 ml PRN DAILY PRN PO HEARTBURN / GAS; Start 01/23/18 at 17:30 Sodium Monofluorophosphate (Fleet Adult) 133 ml PRN DAILY PRN RI CONSTIPATION; Start 01/23/18 at 17:30 Docusate Sodium (Colace) 100 mg PRN BID PRN PO CONSTIPATION Last administered on 01/28/18at 08:50; Start 01/23/18 at 17:30 Albuterol Sulfate (Ventolin Neb Soln) 2.5 mg PRN Q4HRS PRN NEB SHORTNESS OF BREATH; Start 01/23/18 at 17:30 Guaifenesin (Robitussin) 200 mg PRN Q4HRS PRN PO COUGH Last administered on at 16:24; Start 01/23/18 at 17:30 Enoxaparin Sodium (Lovenox 40mg Syringe) 40 mg DAILY SQ ; Start 01/24/18 at 09: 00 Vancomycin HCl 1 gm/Dextrose 250 ml @ 250 mls/hr 1X ONCE IV ; Start 01/23/18 at 17:30; Stop 01/23/18 at 18:29; Status UNV Vancomycin HCl (Vanco Per Pharmacy) 1 each PRN DAILY PRN MC SEE COMMENTS; Start 01/23/18 at 17:30; Status UNV Acetaminophen/ Hydrocodone Bitart (Lortab 5/325) 1 tab PRN Q6HRS PRN PO MOD TO SEVERE PAIN; Start 01/23/18 at 18:30 Vancomycin HCl 1.25 gm/Sodium Chloride 250 ml @ 250 mls/hr Q18H IV Last administered on 01/25/18at 07:25; Start 01/24/18 at 12:00; Stop 01/25/18 at 09 :00; Status DC Vancomycin HCl (Vancomycin Trough Level) 1 each 1X ONCE MC Last administered on 01/25/18at 06:30; Start 01/25/18 at 05:30; Stop 01/25/18 at 05:31; Status DC Lactobacillus Rhamnosus (Culturelle) 1 cap BID PO Last administered on at 08:22; Start 01/24/18 at 21:00 Vancomycin HCl 1.25 gm/Sodium Chloride 250 ml @ 250 mls/hr Q12H IV Last administered on 01/26/18at 19:59; Start 01/25/18 at 20:00; Stop 01/27/18 at 08 :54; Status DC Amlodipine Besylate (Norvasc) 10 mg DAILY PO Last administered on 01/30/18at 08 :15; Start 01/26/18 at 09:00 Lisinopril (Prinivil) 40 mg DAILY PO Last administered on 01/28/18at 08:55; Start 01/26/18 at 09:00; Stop 01/28/18 at 13:54; Status DC Vancomycin HCl (Vancomycin Trough Level) 1 each 1X ONCE MC ; Start 01/27/18 at 07:30; Stop 01/27/18 at 07:31; Status DC Ondansetron HCl (Zofran) 4 mg PRN Q6HRS PRN IV NAUSEA/VOMITING; Start at 07:00; Stop 01/30/18 at 06:59; Status DC Fentanyl Citrate (Fentanyl 2ml Vial) 25 mcg PRN Q5MIN PRN IV MILD PAIN; Start 01/29/18 at 07:00; Stop 01/30/18 at 06:59; Status DC Fentanyl Citrate (Fentanyl 2ml Vial) 50 mcg PRN Q5MIN PRN IV MODERATE TO SEVERE PAIN Last administered on 01/29/18at 14:24; Start 01/29/18 at 07:00; Stop 01/30/18 at 06:59; Status DC Morphine Sulfate (Morphine Sulfate) 1 mg PRN Q10MIN PRN IV SEVERE PAIN; Start 01/29/18 at 07:00; Stop 01/30/18 at 06:59; Status DC Ringer's Solution 1,000 ml @ 30 mls/hr Q24H IV ; Start 01/29/18 at 07:00; Stop 01/29/18 at 18:59; Status DC Lidocaine HCl (Xylocaine-Mpf 1% 2ml Vial) 2 ml PRN 1X PRN ID PRIOR TO IV START ; Start 01/29/18 at 07:00; Stop 01/30/18 at 06:59; Status DC Hydromorphone HCl (Dilaudid) 0.5 mg PRN Q10MIN PRN IV SEV PAIN, Second choice; Start 01/29/18 at 07:00; Stop 01/30/18 at 06:59; Status DC Prochlorperazine Edisylate (Compazine) 5 mg PACU PRN PRN IV NAUSEA, MRX1; Start 01/29/18 at 07:00; Stop 01/30/18 at 06:59; Status DC Vancomycin HCl (Vancomycin Random Level) 1 each 1X ONCE MC Last administered on 01/27/18at 19:00; Start 01/27/18 at 19:00; Stop 01/27/18 at 19:01; Status DC Benzonatate (Tessalon Perle) 100 mg [id number] PO Last administered on 01/30/18at 08:14; Start 01/27/18 at 14:00 Vancomycin HCl 1.25 gm/Sodium Chloride 250 ml @ 166.667 mls/hr Q18H IV Last administered on 01/30/18at 04:00; Start 01/27/18 at 22:00 Promethazine HCl/ Codeine (Phenergan With Codeine Oral Syrup) 5 ml PRN Q4HRS PRN PO COUGH 2ND CHOICE Last administered on 01/29/18at 19:09; Start 01/28/18 at 14:00 Propofol 20 ml @ As Directed STK-MED ONCE IV ; Start 01/29/18 at 12:42; Stop 01/29/18 at 12:43; Status DC Dexamethasone Sodium Phosphate (Decadron) 20 mg STK-MED ONCE .ROUTE ; Start at 12:42; Stop 01/29/18 at 12:43; Status DC Famotidine (Pepcid Vial) 20 mg STK-MED ONCE .ROUTE ; Start 01/29/18 at 12:42; Stop 01/29/18 at 12:43; Status DC Lidocaine HCl (Lidocaine Pf 2% Vial) 5 ml STK-MED ONCE .ROUTE ; Start 01/29/18 at 12:42; Stop 01/29/18 at 12:43; Status DC Ondansetron HCl (Zofran) 4 mg STK-MED ONCE .ROUTE ; Start 01/29/18 at 12:42; Stop 01/29/18 at 12:43; Status DC Fentanyl Citrate (Fentanyl 2ml Vial) 100 mcg STK-MED ONCE .ROUTE ; Start at 12:42; Stop 01/29/18 at 12:43; Status DC Midazolam HCl (Versed) 2 mg STK-MED ONCE .ROUTE ; Start 01/29/18 at 12:42; Stop 01/29/18 at 12:43; Status DC Cefazolin Sodium 1 gm/Sodium Chloride 250 ml @ 250 mls/hr 1X ONCE IV ; Start 01/29/18 at 13:00; Stop 01/29/18 at 13:59; Status DC Famotidine (Pepcid Vial) 20 mg STK-MED ONCE .ROUTE ; Start 01/29/18 at 13:07; Stop 01/29/18 at 13:08; Status DC Ephedrine Sulfate (ePHEDrine PF IN SALINE SYRINGE) 50 mg STK-MED ONCE IV ; Start 01/29/18 at 13:42; Stop 01/29/18 at 13:43; Status DC Fentanyl Citrate (Fentanyl 2ml Vial) 100 mcg STK-MED ONCE .ROUTE ; Start at 14:21; Stop 01/29/18 at 14:22; Status DC Insulin Human Lispro (HumaLOG) 20 units 1X ONCE SQ Last administered on at 22:38; Start 01/29/18 at 23:00; Stop 01/29/18 at 23:01; Status DC Vancomycin HCl (Vancomycin Trough Level) 1 each 1X ONCE MC ; Start 01/30/18 at 21:30; Stop 01/30/18 at 21:31 Active Scripts Active Reported Remedy Phytoplex Antifungal (Miconazole Nitrate) 85 Gm Powder 1 Alia TP DAILY Loratadine 10 Mg Tablet 10 Mg PO DAILY Ascorbic Acid 500 Mg Tablet 500 Mg PO BID Hydrochlorothiazide Capsule (Hydrochlorothiazide) 12.5 Mg Capsule 12.5 Mg PO DAILY Glipizide 5 Mg Tablet 1 Tab PO BIDWMEALS Clopidogrel (Clopidogrel Bisulfate) 75 Mg Tablet 75 Mg PO DAILY Tylenol (Acetaminophen) 325 Mg Tablet 325 Mg PO PRN Q4HRS Metformin Hcl 500 Mg Tablet 500 Mg PO BIDWMEALS Lisinopril 20 Mg Tablet 40 Tab PO DAILY Levothyroxine Sodium 25 Mcg Tablet 25 Mcg PO DAILY Aspir 81 (Aspirin) 81 Mg Tablet.dr 81 Mg PO DAILY Amlodipine Besylate 5 Mg Tablet 10 Mg PO DAILY Vitals/I & O Vital Sign - Last 24 Hours 01/29/18 01/29/18 01/29/18 01/29/18 12:50 13:57 14:11 14:12 Temp 97.6 97.6 97.6 97.6 Pulse 79 77 83 Resp 14 16 16 B/P (MAP) 142/73 113/54 122/63 Pulse Ox 98 100 98 O2 Delivery Room Air Simple Mask Room Air Room Air O2 Flow Rate 10 01/29/18 01/29/18 01/29/18 01/29/18 14:24 14:27 14:42 15:00 Temp 97.6 97.6 Pulse 78 76 Resp 18 16 16 B/P (MAP) 134/66 132/63 Pulse Ox 96 97 95 O2 Delivery Room Air Room Air Room Air Room Air 01/29/18 01/29/18 01/29/18 01/29/18 15:00 15:17 15:33 15:48 Temp 98.0 98.0 Pulse 85 80 81 87 Resp 16 B/P (MAP) 111/66 (81) 118/63 (81) 126/101 (109) 137/67 (90) Pulse Ox 95 95 93 93 O2 Delivery Room Air Room Air Room Air Room Air 01/29/18 01/29/18 01/29/18 01/29/18 16:03 16:33 17:02 17:33 Pulse 92 85 93 95 B/P (MAP) 140/53 (82) 135/66 (89) 139/67 (91) Pulse Ox 96 100 96 95 O2 Delivery Room Air Room Air Room Air Room Air 01/29/18 01/29/18 01/29/18 01/30/18 18:10 20:00 23:00 03:00 Temp 97.3 97.5 97.3 97.5 Pulse 96 60 95 B/P (MAP) 134/70 (91) 117/69 (85) 128/65 (86) Pulse Ox 90 96 96 O2 Delivery Room Air Room Air Room Air Room Air 01/30/18 01/30/18 07:00 08:15 Temp 97.4 97.4 Pulse 80 95 Resp 16 B/P (MAP) 149/76 (100) 128/65 Pulse Ox 97 O2 Delivery Room Air Intake and Output 01/29/18 01/29/18 01/30/18 15:00 23:00 07:00 Intake Total 20 ml 300 ml Output Total 200 ml Balance -180 ml 300 ml PILLO CABALLERO APRN Jan 30, 2018 11:23
--- NOTE | 2018-01-30 12:09 | PDOC ---
Infectious Disease Note Subjective: Subjective Finished taking a shower and his dressing was just changed by RN Feeling fine, denies pain + cough dry ROS: ROS Negative except for above. Vital Signs: Vital Signs Vital Signs Date Time Temp Pulse Resp B/P (MAP) Pulse Ox O2 Delivery O2 Flow Rate FiO2 01/30/18 08:15 95 128/65 01/30/18 07:40 Room Air 01/30/18 07:00 97.4 16 97 97.4 01/29/18 13:57 10 Physical Exam: PHYSICAL EXAM GENERAL: Sitting in the chair, smiling HEENT: Oral cavity pink. No thrush NECK: Supple LUNGS: Clear. HEART: S1, S2 regular. ABDOMEN: Obese, soft, NT EXTREMITIES: BLE edema 1+. Left foot bandaged, there is s a small open wound with some discharge, no tenderness. weak pulse. NEUROLOGIC: Alert and oriented x 3 SKIN: no rash PIV ok Medications: Inpatient Meds: Current Medications Medications (Trade) Dose Ordered Sig/Susan Start Time Stop Time Status Last Admin Dose Admin Acetaminophen (Tylenol) 650 mg PRN Q4HRS PRN 01/23/18 17:30 Acetaminophen/ Hydrocodone Bitart (Lortab 5/325) 1 tab PRN Q6HRS PRN 01/23/18 18:30 Al Hydroxide/Mg Hydroxide (Mylanta Plus Xs) 30 ml PRN DAILY PRN 01/23/18 17:30 Albuterol Sulfate (Ventolin Neb Soln) 2.5 mg PRN Q4HRS PRN 01/23/18 17:30 Amlodipine Besylate (Norvasc) 10 mg DAILY 01/26/18 09:00 01/30/18 08:15 10 MG Ascorbic Acid (Vitamin C) 500 mg DAILY 01/24/18 09:00 01/30/18 08:21 500 MG Aspirin (Ecotrin) 81 mg DAILY 01/24/18 09:00 01/30/18 08:14 81 MG Benzonatate (Tessalon Perle) 100 mg [id number] 01/27/18 14:00 01/30/18 08:14 100 MG Cefazolin Sodium 1 gm/Sodium Chloride 250 ml @ 250 mls/hr 1X ONCE 01/29/18 13:00 01/29/18 13:59 DC Clopidogrel Bisulfate (Plavix) 75 mg DAILY 01/24/18 09:00 01/30/18 08:22 75 MG Dexamethasone Sodium Phosphate (Decadron) 20 mg STK-MED ONCE 01/29/18 12:42 01/29/18 12:43 DC Dextrose (Dextrose 50%-Water Syringe) 12.5 gm PRN Q15MIN PRN 01/23/18 17:15 Docusate Sodium (Colace) 100 mg PRN BID PRN 01/23/18 17:30 01/28/18 08:50 100 MG Enoxaparin Sodium (Lovenox 40mg Syringe) 40 mg DAILY 01/24/18 09:00 Ephedrine Sulfate (ePHEDrine PF IN SALINE SYRINGE) 50 mg STK-MED ONCE 01/29/18 13:42 01/29/18 13:43 DC Famotidine (Pepcid Vial) 20 mg STK-MED ONCE 01/29/18 13:07 01/29/18 13:08 DC Fentanyl Citrate (Fentanyl 2ml Vial) 100 mcg STK-MED ONCE 01/29/18 14:21 01/29/18 14:22 DC Glipizide (Glucotrol) 5 mg BIDAC 01/24/18 07:30 01/30/18 05:32 5 MG Guaifenesin (Robitussin) 200 mg PRN Q4HRS PRN 01/23/18 17:30 01/29/18 16:24 200 MG Hydrochlorothiazide (Microzide) 12.5 mg DAILY 01/24/18 09:00 01/30/18 08:22 12.5 MG Hydromorphone HCl (Dilaudid) 0.5 mg PRN Q10MIN PRN 01/29/18 07:00 01/30/18 06:59 DC Insulin Human Lispro (HumaLOG) 20 units 1X ONCE 01/29/18 23:00 01/29/18 23:01 DC 01/29/18 22:38 20 UNITS Lactobacillus Rhamnosus (Culturelle) 1 cap BID 01/24/18 21:00 01/30/18 08:22 1 CAP Levothyroxine Sodium (Synthroid) 25 mcg DAILY06 01/24/18 06:00 01/30/18 05:32 25 MCG Lidocaine HCl (Lidocaine Pf 2% Vial) 5 ml STK-MED ONCE 01/29/18 12:42 01/29/18 12:43 DC Lidocaine HCl (Xylocaine-Mpf 1% 2ml Vial) 2 ml PRN 1X PRN 01/29/18 07:00 01/30/18 06:59 DC Lisinopril (Prinivil) 40 mg DAILY 01/26/18 09:00 01/28/18 13:54 DC 01/28/18 08:55 40 MG Meropenem 500 mg/ Sodium Chloride 50 ml @ 100 mls/hr 1X ONCE 01/23/18 17:30 01/23/18 17:59 DC 01/23/18 17:57 100 MLS/HR Metformin HCl (Glucophage) 500 mg BIDWMEALS 01/23/18 18:00 01/30/18 08:21 500 MG Metoprolol Tartrate (Lopressor) 25 mg DAILY 01/24/18 09:00 01/25/18 16:22 DC 01/25/18 09:28 25 MG Midazolam HCl (Versed) 2 mg STK-MED ONCE 01/29/18 12:42 01/29/18 12:43 DC Morphine Sulfate (Morphine Sulfate) 1 mg PRN Q10MIN PRN 01/29/18 07:00 01/30/18 06:59 DC Multivitamins/ Minerals (I-Erica) 1 tab DAILY 01/24/18 09:00 01/30/18 08:14 1 TAB Ondansetron HCl (Zofran) 4 mg STK-MED ONCE 01/29/18 12:42 01/29/18 12:43 DC Prochlorperazine Edisylate (Compazine) 5 mg PACU PRN PRN 01/29/18 07:00 01/30/18 06:59 DC Promethazine HCl/ Codeine (Phenergan With Codeine Oral Syrup) 5 ml PRN Q4HRS PRN 01/28/18 14:00 01/29/18 19:09 5 ML Propofol 20 ml @ As Directed STK-MED ONCE 01/29/18 12:42 01/29/18 12:43 DC Ringer's Solution 1,000 ml @ 30 mls/hr Q24H 01/29/18 07:00 01/29/18 18:59 DC Sodium Monofluorophosphate (Fleet Adult) 133 ml PRN DAILY PRN 01/23/18 17:30 Sodium Chloride 1,000 ml @ 100 mls/hr Q10H 01/23/18 18:00 01/25/18 17:43 DC 01/25/18 06:11 100 MLS/HR Sodium Chloride (Normal Saline Flush 3ml) 3 ml QSHIFT PRN 01/23/18 17:30 Vancomycin HCl (Vanco Per Pharmacy) 1 each PRN DAILY PRN 01/23/18 17:30 UNV Vancomycin HCl (Vancomycin Random Level) 1 each 1X ONCE 01/27/18 19:00 01/27/18 19:01 DC 01/27/18 19:00 1 EACH Vancomycin HCl (Vancomycin Trough Level) 1 each 1X ONCE 01/30/18 21:30 01/30/18 21:31 Vancomycin HCl 1.25 gm/Sodium Chloride 250 ml @ 166.667 mls/hr Q18H 01/27/18 22:00 01/30/18 04:00 166.667 MLS/HR Vancomycin HCl 1.75 gm/Sodium Chloride 500 ml @ 250 mls/hr 1X ONCE 01/23/18 17:30 01/23/18 19:29 DC 01/23/18 17:58 250 MLS/HR Vancomycin HCl 1 gm/Dextrose 250 ml @ 250 mls/hr 1X ONCE 01/23/18 17:30 01/23/18 18:29 UNV Labs: Lab Laboratory Tests Test 01/29/18 14:05 01/29/18 16:09 01/29/18 20:55 01/30/18 03:10 Glucose (Fingerstick) 103 mg/dL (70-99) 150 mg/dL (70-99) 442 mg/dL (70-99) White Blood Count 11.9 x10^3/uL (4.0-11.0) Red Blood Count 3.76 x10^6/uL (4.30-5.70) Hemoglobin 12.0 g/dL (13.0-17.5) Hematocrit 33.7 % (39.0-53.0) Mean Corpuscular Volume 90 fL (79-100) Mean Corpuscular Hemoglobin 32 pg (25-35) Mean Corpuscular Hemoglobin Concent 36 g/dL (31-37) Red Cell Distribution Width 13.3 % (11.5-14.5) Platelet Count 246 x10^3/uL (140-400) Neutrophils (%) (Auto) 79 % (31-73) Lymphocytes (%) (Auto) 14 % (24-48) Monocytes (%) (Auto) 6 % (0-9) Eosinophils (%) (Auto) 0 % (0-3) Basophils (%) (Auto) 1 % (0-3) Neutrophils # (Auto) 9.4 x10^3uL (1.8-7.7) Lymphocytes # (Auto) 1.7 x10^3/uL (1.0-4.8) Monocytes # (Auto) 0.7 x10^3/uL (0.0-1.1) Eosinophils # (Auto) 0.0 x10^3/uL (0.0-0.7) Basophils # (Auto) 0.1 x10^3/uL (0.0-0.2) Sodium Level 143 mmol/L (136-145) Potassium Level 4.5 mmol/L (3.5-5.1) Chloride Level 104 mmol/L (98-107) Carbon Dioxide Level 24 mmol/L (21-32) Anion Gap 15 (6-14) Blood Urea Nitrogen 45 mg/dL (8-26) Creatinine 1.2 mg/dL (0.7-1.3) Estimated GFR (Cockcroft-Gault) 60.6 Glucose Level 223 mg/dL (70-99) Calcium Level 8.4 mg/dL (8.5-10.1) Test 01/30/18 07:42 Glucose (Fingerstick) 150 mg/dL (70-99) Micro RUN DATE: 01/29/18 PAGE 1 RUN TIME: 8709 [facility] [address] [place] [address] Kapil Dickerson M.D., [employer] Operator PATIENT: FABIOLA ANN ACCT: [id number] LOC: [address] [place] [address] U : [id number] AGE/SX: 67/M ROOM: 404 REG : 01/23/[address]: PALAK LARSON MD : 1950 BED: 1 DIS : STATUS: ADM IN TLOC: SPEC #: [id number] BELEM: 01/23/18 STATUS: COMP REQ #: [id number] RECD: 01/23/[address]: PALAK LARSON MD SOURCE: FOOT ENTR: 01/23/[address]: SANDRA FERGUSON II, MD [facility]: SASKIA BAXTER MD, SAMIR R MD ORDERED: ANAER/AEROB/GS Procedure Result ANAEROBIC-AEROBIC CULTURE Final Final report ANAEROBIC RES 1 Final Comment No anaerobic growth in 72 hours. AEROBIC CULT Final Final report AEROBIC RES 1 Final Enterobacter cloacae 4+ AEROBIC RES 2 Final Comment Pseudomonas aeruginosa 1+ ANTIMICROBIAL SUSCEPTIBILITY Final Comment S = Susceptible; I = Intermediate; R = Resistant P = Positive; N = Negative MICS are expressed in micrograms per mL Antibiotic RSLT#1 RSLT#2 RSLT#3 RSLT#4 Amikacin S<=2 Amoxicillin/Clavulanic Acid R>=32 Cefazolin R>=64 Cefepime S<=0.12 S =2 Ceftazidime S =4 Cefuroxime R =R Ciprofloxacin S<=0.25 S<=0.25 Ertapenem S<=0.12 Gentamicin S<=1 S<=1 CONTINUED ON NEXT PAGE RUN DATE: 01/29/18 PAGE 2 RUN TIME: 0700 [facility] [address] [place] [address] Kapil Dickerson M.D., [employer] Print Operator SPEC: [id number] PATIENT: SETHFABIOLA [id number] ( Continued) Procedure Result ANTIMICROBIAL SUSCEPTIBILITY Final (continued) Imipenem S<=0.25 S =2 Levofloxacin S<=0.12 S =1 Meropenem S<=0.25 S =0.5 Piperacillin S =8 Tetracycline S<=1 Ticarcillin S =32 Tobramycin S<=1 S<=1 Trimethoprim/Sulfa S<=20 GRAM STAIN Final Final report GRAM STAIN RES 1 Final Comment No white blood cells seen. GRAM STAIN RES 2 Final Comment Many gram negative rods. GRAM STAIN RES 3 Final Comment Few gram positive rods. Performed at: [facility] [address], [place], [place] [id number] Quality Control Head: JEFFERSON Barone MD, Phone: [phone] Objective: Assessment: Osteomyelitis of 3 rd met. growth of Enterobacter and PSAE s/p surgery on 01/29 DM PAD HTN Plan: Plan of Care Cont IV Vanc and meropenem f/u cultures Monitor labs/renal function Probiotics supportive care D/w OSWALD MCCAULEY MD Jan 30, 2018 12:09
--- NOTE | 2018-01-30 12:12 | PDOC ---
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) plan: fu with ID, on meropenum, vancomycin on glyburide, ssi fu with vascular sx, wound vav labs tmr fu wound cx, pseudomonas, enterobactero so far History of Present Illness History of Present Illness Pt seen and examined while sitting in bed Pt was very pleasant and polite Discussed w/RN ROS: no fever, chills, sob or chest pain Vitals Vitals Vital Signs Date Time Temp Pulse Resp B/P (MAP) Pulse Ox O2 Delivery O2 Flow Rate FiO2 01/30/18 08:15 95 128/65 01/30/18 07:40 Room Air 01/30/18 07:00 97.4 16 97 97.4 01/29/18 13:57 10 Physical Exam Physical Exam GENERAL: Sitting in the chair, smiling HEENT: Oral cavity pink. No thrush NECK: Supple LUNGS: Clear. HEART: S1, S2 regular. ABDOMEN: Obese, soft, NT EXTREMITIES: BLE edema 1+. Left foot bandaged, there is s a small open wound with some discharge, no tenderness. weak pulse. NEUROLOGIC: Alert and oriented x 3 SKIN: no rash PIV ok General: Alert, No acute distress Heart: Regular rate Lungs: Clear Abdomen: Normal bowel sounds, Soft, No tenderness Extremities: Other (Left distal and plantar ulcers in the region of the left 3rd met head. No erythema.) Skin: No rashes Labs LABS Laboratory Tests Test 01/29/18 14:05 01/29/18 16:09 01/29/18 20:55 01/30/18 03:10 Glucose (Fingerstick) 103 mg/dL (70-99) 150 mg/dL (70-99) 442 mg/dL (70-99) White Blood Count 11.9 x10^3/uL (4.0-11.0) Red Blood Count 3.76 x10^6/uL (4.30-5.70) Hemoglobin 12.0 g/dL (13.0-17.5) Hematocrit 33.7 % (39.0-53.0) Mean Corpuscular Volume 90 fL (79-100) Mean Corpuscular Hemoglobin 32 pg (25-35) Mean Corpuscular Hemoglobin Concent 36 g/dL (31-37) Red Cell Distribution Width 13.3 % (11.5-14.5) Platelet Count 246 x10^3/uL (140-400) Neutrophils (%) (Auto) 79 % (31-73) Lymphocytes (%) (Auto) 14 % (24-48) Monocytes (%) (Auto) 6 % (0-9) Eosinophils (%) (Auto) 0 % (0-3) Basophils (%) (Auto) 1 % (0-3) Neutrophils # (Auto) 9.4 x10^3uL (1.8-7.7) Lymphocytes # (Auto) 1.7 x10^3/uL (1.0-4.8) Monocytes # (Auto) 0.7 x10^3/uL (0.0-1.1) Eosinophils # (Auto) 0.0 x10^3/uL (0.0-0.7) Basophils # (Auto) 0.1 x10^3/uL (0.0-0.2) Sodium Level 143 mmol/L (136-145) Potassium Level 4.5 mmol/L (3.5-5.1) Chloride Level 104 mmol/L (98-107) Carbon Dioxide Level 24 mmol/L (21-32) Anion Gap 15 (6-14) Blood Urea Nitrogen 45 mg/dL (8-26) Creatinine 1.2 mg/dL (0.7-1.3) Estimated GFR (Cockcroft-Gault) 60.6 Glucose Level 223 mg/dL (70-99) Calcium Level 8.4 mg/dL (8.5-10.1) Test 01/30/18 07:42 01/30/18 11:57 Glucose (Fingerstick) 150 mg/dL (70-99) 231 mg/dL (70-99) Comment Review of Relevant I have reviewed the following items billy (where applicable) has been applied. Labs Laboratory Tests Test 01/28/18 12:15 01/28/18 16:13 01/28/18 20:59 01/29/18 03:10 White Blood Count 9.5 x10^3/uL (4.0-11.0) 9.5 x10^3/uL (4.0-11.0) Red Blood Count 4.11 x10^6/uL (4.30-5.70) 4.09 x10^6/uL (4.30-5.70) Hemoglobin 13.1 g/dL (13.0-17.5) 13.0 g/dL (13.0-17.5) Hematocrit 37.0 % (39.0-53.0) 36.8 % (39.0-53.0) Mean Corpuscular Volume 90 fL (79-100) 90 fL (79-100) Mean Corpuscular Hemoglobin 32 pg (25-35) 32 pg (25-35) Mean Corpuscular Hemoglobin Concent 35 g/dL (31-37) 35 g/dL (31-37) Red Cell Distribution Width 13.2 % (11.5-14.5) 13.6 % (11.5-14.5) Platelet Count 255 x10^3/uL (140-400) 237 x10^3/uL (140-400) Neutrophils (%) (Auto) 51 % (31-73) 45 % (31-73) Lymphocytes (%) (Auto) 28 % (24-48) 32 % (24-48) Monocytes (%) (Auto) 9 % (0-9) 11 % (0-9) Eosinophils (%) (Auto) 11 % (0-3) 10 % (0-3) Basophils (%) (Auto) 1 % (0-3) 1 % (0-3) Neutrophils # (Auto) 4.8 x10^3uL (1.8-7.7) 4.3 x10^3uL (1.8-7.7) Lymphocytes # (Auto) 2.7 x10^3/uL (1.0-4.8) 3.1 x10^3/uL (1.0-4.8) Monocytes # (Auto) 0.9 x10^3/uL (0.0-1.1) 1.0 x10^3/uL (0.0-1.1) Eosinophils # (Auto) 1.0 x10^3/uL (0.0-0.7) 1.0 x10^3/uL (0.0-0.7) Basophils # (Auto) 0.1 x10^3/uL (0.0-0.2) 0.1 x10^3/uL (0.0-0.2) Sodium Level 142 mmol/L (136-145) 144 mmol/L (136-145) Potassium Level 4.0 mmol/L (3.5-5.1) 4.1 mmol/L (3.5-5.1) Chloride Level 103 mmol/L (98-107) 106 mmol/L (98-107) Carbon Dioxide Level 30 mmol/L (21-32) 28 mmol/L (21-32) Anion Gap 9 (6-14) 10 (6-14) Blood Urea Nitrogen 32 mg/dL (8-26) 44 mg/dL (8-26) Creatinine 1.0 mg/dL (0.7-1.3) 1.1 mg/dL (0.7-1.3) Estimated GFR (Cockcroft-Gault) 74.8 67.0 Glucose Level 96 mg/dL (70-99) 160 mg/dL (70-99) Calcium Level 8.6 mg/dL (8.5-10.1) 8.3 mg/dL (8.5-10.1) Glucose (Fingerstick) 120 mg/dL (70-99) 283 mg/dL (70-99) Test 01/29/18 07:19 01/29/18 11:10 01/29/18 14:05 01/29/18 16:09 Glucose (Fingerstick) 128 mg/dL (70-99) 111 mg/dL (70-99) 103 mg/dL (70-99) 150 mg/dL (70-99) Test 01/29/18 20:55 01/30/18 03:10 01/30/18 07:42 01/30/18 11:57 Glucose (Fingerstick) 442 mg/dL (70-99) 150 mg/dL (70-99) 231 mg/dL (70-99) White Blood Count 11.9 x10^3/uL (4.0-11.0) Red Blood Count 3.76 x10^6/uL (4.30-5.70) Hemoglobin 12.0 g/dL (13.0-17.5) Hematocrit 33.7 % (39.0-53.0) Mean Corpuscular Volume 90 fL (79-100) Mean Corpuscular Hemoglobin 32 pg (25-35) Mean Corpuscular Hemoglobin Concent 36 g/dL (31-37) Red Cell Distribution Width 13.3 % (11.5-14.5) Platelet Count 246 x10^3/uL (140-400) Neutrophils (%) (Auto) 79 % (31-73) Lymphocytes (%) (Auto) 14 % (24-48) Monocytes (%) (Auto) 6 % (0-9) Eosinophils (%) (Auto) 0 % (0-3) Basophils (%) (Auto) 1 % (0-3) Neutrophils # (Auto) 9.4 x10^3uL (1.8-7.7) Lymphocytes # (Auto) 1.7 x10^3/uL (1.0-4.8) Monocytes # (Auto) 0.7 x10^3/uL (0.0-1.1) Eosinophils # (Auto) 0.0 x10^3/uL (0.0-0.7) Basophils # (Auto) 0.1 x10^3/uL (0.0-0.2) Sodium Level 143 mmol/L (136-145) Potassium Level 4.5 mmol/L (3.5-5.1) Chloride Level 104 mmol/L (98-107) Carbon Dioxide Level 24 mmol/L (21-32) Anion Gap 15 (6-14) Blood Urea Nitrogen 45 mg/dL (8-26) Creatinine 1.2 mg/dL (0.7-1.3) Estimated GFR (Cockcroft-Gault) 60.6 Glucose Level 223 mg/dL (70-99) Calcium Level 8.4 mg/dL (8.5-10.1) Laboratory Tests Test 01/29/18 14:05 01/29/18 16:09 01/29/18 20:55 01/30/18 03:10 Glucose (Fingerstick) 103 mg/dL (70-99) 150 mg/dL (70-99) 442 mg/dL (70-99) White Blood Count 11.9 x10^3/uL (4.0-11.0) Red Blood Count 3.76 x10^6/uL (4.30-5.70) Hemoglobin 12.0 g/dL (13.0-17.5) Hematocrit 33.7 % (39.0-53.0) Mean Corpuscular Volume 90 fL (79-100) Mean Corpuscular Hemoglobin 32 pg (25-35) Mean Corpuscular Hemoglobin Concent 36 g/dL (31-37) Red Cell Distribution Width 13.3 % (11.5-14.5) Platelet Count 246 x10^3/uL (140-400) Neutrophils (%) (Auto) 79 % (31-73) Lymphocytes (%) (Auto) 14 % (24-48) Monocytes (%) (Auto) 6 % (0-9) Eosinophils (%) (Auto) 0 % (0-3) Basophils (%) (Auto) 1 % (0-3) Neutrophils # (Auto) 9.4 x10^3uL (1.8-7.7) Lymphocytes # (Auto) 1.7 x10^3/uL (1.0-4.8) Monocytes # (Auto) 0.7 x10^3/uL (0.0-1.1) Eosinophils # (Auto) 0.0 x10^3/uL (0.0-0.7) Basophils # (Auto) 0.1 x10^3/uL (0.0-0.2) Sodium Level 143 mmol/L (136-145) Potassium Level 4.5 mmol/L (3.5-5.1) Chloride Level 104 mmol/L (98-107) Carbon Dioxide Level 24 mmol/L (21-32) Anion Gap 15 (6-14) Blood Urea Nitrogen 45 mg/dL (8-26) Creatinine 1.2 mg/dL (0.7-1.3) Estimated GFR (Cockcroft-Gault) 60.6 Glucose Level 223 mg/dL (70-99) Calcium Level 8.4 mg/dL (8.5-10.1) Test 01/30/18 07:42 01/30/18 11:57 Glucose (Fingerstick) 150 mg/dL (70-99) 231 mg/dL (70-99) Microbiology 01/23/18 Blood Culture - Final, Complete NO GROWTH AFTER 5 DAYS 01/23/18 Anaerobic/Aerobic Culture - Final, Complete 01/23/18 Anaerobic Culture Result 1 (ILDA) - Final, Complete 01/23/18 Aerobic Culture - Final, Complete 01/23/18 Aerobic Culture Result 1 (ILDA) - Final, Complete 01/23/18 Aerobic Culture Result 2 (ILDA) - Final, Complete 01/23/18 Antimicrobic Susceptibility - Final, Complete 01/23/18 Gram Stain - Final, Complete 01/23/18 Gram Stain Result 1 (ILDA) - Final, Complete 01/23/18 Gram Stain Result 2 (ILDA) - Final, Complete 01/23/18 Gram Stain Result 3 (ILDA) - Final, Complete Medications Current Medications Vancomycin HCl (Vanco Per Pharmacy) 1 each PRN DAILY PRN MC SEE COMMENTS Last administered on 01/30/18at 10:28; Start 01/23/18 at 17:15 Meropenem 500 mg/ Sodium Chloride 50 ml @ 100 mls/hr Q8HRS IV Last administered on 01/30/18at 05:32; Start 01/23/18 at 22:00 Sodium Chloride 1,000 ml @ 75 mls/hr [id number] IV ; Start 01/23/18 at 17:15; Status Cancel Insulin Human Lispro (HumaLOG) 0-5 UNITS TIDWMEALS SQ Last administered on at 17:15; Start 01/23/18 at 17:30 Dextrose (Dextrose 50%-Water Syringe) 12.5 gm PRN Q15MIN PRN IV SEE COMMENTS; Start 01/23/18 at 17:15 Vancomycin HCl 1.75 gm/Sodium Chloride 500 ml @ 250 mls/hr 1X ONCE IV Last administered on 01/23/18at 17:58; Start 01/23/18 at 17:30; Stop 01/23/18 at 19 :29; Status DC Meropenem 500 mg/ Sodium Chloride 50 ml @ 100 mls/hr 1X ONCE IV Last administered on 01/23/18at 17:57; Start 01/23/18 at 17:30; Stop 01/23/18 at 17 :59; Status DC Acetaminophen (Tylenol) 650 mg PRN Q4HRS PO ; Start 01/23/18 at 17:15; Status UNV Amlodipine Besylate (Norvasc) 10 mg BID PO Last administered on 01/25/18at 09: 27; Start 01/23/18 at 21:00; Stop 01/25/18 at 16:22; Status DC Ascorbic Acid (Vitamin C) 500 mg DAILY PO Last administered on 01/30/18 08:21 ; Start 01/24/18 at 09:00 Aspirin (Ecotrin) 81 mg DAILY PO Last administered on 01/30/18 08:14; Start 01/24/18 at 09:00 Clopidogrel Bisulfate (Plavix) 75 mg DAILY PO Last administered on 01/30/18 08:22; Start 01/24/18 at 09:00 Glipizide (Glucotrol) 5 mg BIDAC PO Last administered on 01/30/18 05:32; Start 01/24/18 at 07:30 Lisinopril (Prinivil) 40 mg BID PO Last administered on 01/25/18 09:26; Start 01/23/18 at 21:00; Stop 01/25/18 at 16:23; Status DC Metoprolol Tartrate (Lopressor) 25 mg DAILY PO Last administered on 01/25/18 09:28; Start 01/24/18 at 09:00; Stop 01/25/18 at 16:22; Status DC Hydrochlorothiazide (Microzide) 12.5 mg DAILY PO Last administered on 08:22; Start 01/24/18 at 09:00 Levothyroxine Sodium (Synthroid) 25 mcg DAILY06 PO Last administered on 05:32; Start 01/24/18 at 06:00 Metformin HCl (Glucophage) 500 mg BIDWMEALS PO Last administered on 01/30/18 08:21; Start 01/23/18 at 18:00 Multivitamins/ Minerals (I-Erica) 1 tab DAILY PO Last administered on 08:14; Start 01/24/18 at 09:00 Sodium Chloride (Normal Saline Flush 3ml) 3 ml QSHIFT PRN IV AFTER MEDS AND BLOOD DRAWS; Start 01/23/18 at 17:30 Sodium Chloride 1,000 ml @ 100 mls/hr Q10H IV Last administered on 01/25/18at 06:11; Start 01/23/18 at 18:00; Stop 01/25/18 at 17:43; Status DC Ondansetron HCl (Zofran) 4 mg PRN Q4HRS PRN IV NAUSEA/VOMITING; Start at 17:30 Acetaminophen (Tylenol) 650 mg PRN Q4HRS PRN PO TEMP OVER 100.4F OR MILD PAIN; Start 01/23/18 at 17:30 Al Hydroxide/Mg Hydroxide (Mylanta Plus Xs) 30 ml PRN DAILY PRN PO HEARTBURN / GAS; Start 01/23/18 at 17:30 Sodium Monofluorophosphate (Fleet Adult) 133 ml PRN DAILY PRN TN CONSTIPATION; Start 01/23/18 at 17:30 Docusate Sodium (Colace) 100 mg PRN BID PRN PO CONSTIPATION Last administered on 01/28/18at 08:50; Start 01/23/18 at 17:30 Albuterol Sulfate (Ventolin Neb Soln) 2.5 mg PRN Q4HRS PRN NEB SHORTNESS OF BREATH; Start 01/23/18 at 17:30 Guaifenesin (Robitussin) 200 mg PRN Q4HRS PRN PO COUGH Last administered on at 16:24; Start 01/23/18 at 17:30 Enoxaparin Sodium (Lovenox 40mg Syringe) 40 mg DAILY SQ ; Start 01/24/18 at 09: 00 Vancomycin HCl 1 gm/Dextrose 250 ml @ 250 mls/hr 1X ONCE IV ; Start 01/23/18 at 17:30; Stop 01/23/18 at 18:29; Status UNV Vancomycin HCl (Vanco Per Pharmacy) 1 each PRN DAILY PRN MC SEE COMMENTS; Start 01/23/18 at 17:30; Status UNV Acetaminophen/ Hydrocodone Bitart (Lortab 5/325) 1 tab PRN Q6HRS PRN PO MOD TO SEVERE PAIN; Start 01/23/18 at 18:30 Vancomycin HCl 1.25 gm/Sodium Chloride 250 ml @ 250 mls/hr Q18H IV Last administered on 01/25/18at 07:25; Start 01/24/18 at 12:00; Stop 01/25/18 at 09 :00; Status DC Vancomycin HCl (Vancomycin Trough Level) 1 each 1X ONCE MC Last administered on 01/25/18at 06:30; Start 01/25/18 at 05:30; Stop 01/25/18 at 05:31; Status DC Lactobacillus Rhamnosus (Culturelle) 1 cap BID PO Last administered on at 08:22; Start 01/24/18 at 21:00 Vancomycin HCl 1.25 gm/Sodium Chloride 250 ml @ 250 mls/hr Q12H IV Last administered on 01/26/18at 19:59; Start 01/25/18 at 20:00; Stop 01/27/18 at 08 :54; Status DC Amlodipine Besylate (Norvasc) 10 mg DAILY PO Last administered on 01/30/18at 08 :15; Start 01/26/18 at 09:00 Lisinopril (Prinivil) 40 mg DAILY PO Last administered on 01/28/18at 08:55; Start 01/26/18 at 09:00; Stop 01/28/18 at 13:54; Status DC Vancomycin HCl (Vancomycin Trough Level) 1 each 1X ONCE MC ; Start 01/27/18 at 07:30; Stop 01/27/18 at 07:31; Status DC Ondansetron HCl (Zofran) 4 mg PRN Q6HRS PRN IV NAUSEA/VOMITING; Start at 07:00; Stop 01/30/18 at 06:59; Status DC Fentanyl Citrate (Fentanyl 2ml Vial) 25 mcg PRN Q5MIN PRN IV MILD PAIN; Start 01/29/18 at 07:00; Stop 01/30/18 at 06:59; Status DC Fentanyl Citrate (Fentanyl 2ml Vial) 50 mcg PRN Q5MIN PRN IV MODERATE TO SEVERE PAIN Last administered on 01/29/18at 14:24; Start 01/29/18 at 07:00; Stop 01/30/18 at 06:59; Status DC Morphine Sulfate (Morphine Sulfate) 1 mg PRN Q10MIN PRN IV SEVERE PAIN; Start 01/29/18 at 07:00; Stop 01/30/18 at 06:59; Status DC Ringer's Solution 1,000 ml @ 30 mls/hr Q24H IV ; Start 01/29/18 at 07:00; Stop 01/29/18 at 18:59; Status DC Lidocaine HCl (Xylocaine-Mpf 1% 2ml Vial) 2 ml PRN 1X PRN ID PRIOR TO IV START ; Start 01/29/18 at 07:00; Stop 01/30/18 at 06:59; Status DC Hydromorphone HCl (Dilaudid) 0.5 mg PRN Q10MIN PRN IV SEV PAIN, Second choice; Start 01/29/18 at 07:00; Stop 01/30/18 at 06:59; Status DC Prochlorperazine Edisylate (Compazine) 5 mg PACU PRN PRN IV NAUSEA, MRX1; Start 01/29/18 at 07:00; Stop 01/30/18 at 06:59; Status DC Vancomycin HCl (Vancomycin Random Level) 1 each 1X ONCE MC Last administered on 01/27/18at 19:00; Start 01/27/18 at 19:00; Stop 01/27/18 at 19:01; Status DC Benzonatate (Tessalon Perle) 100 mg [id number] PO Last administered on 01/30/18at 08:14; Start 01/27/18 at 14:00 Vancomycin HCl 1.25 gm/Sodium Chloride 250 ml @ 166.667 mls/hr Q18H IV Last administered on 01/30/18at 04:00; Start 01/27/18 at 22:00 Promethazine HCl/ Codeine (Phenergan With Codeine Oral Syrup) 5 ml PRN Q4HRS PRN PO COUGH 2ND CHOICE Last administered on 01/29/18at 19:09; Start 01/28/18 at 14:00 Propofol 20 ml @ As Directed STK-MED ONCE IV ; Start 01/29/18 at 12:42; Stop 01/29/18 at 12:43; Status DC Dexamethasone Sodium Phosphate (Decadron) 20 mg STK-MED ONCE .ROUTE ; Start at 12:42; Stop 01/29/18 at 12:43; Status DC Famotidine (Pepcid Vial) 20 mg STK-MED ONCE .ROUTE ; Start 01/29/18 at 12:42; Stop 01/29/18 at 12:43; Status DC Lidocaine HCl (Lidocaine Pf 2% Vial) 5 ml STK-MED ONCE .ROUTE ; Start 01/29/18 at 12:42; Stop 01/29/18 at 12:43; Status DC Ondansetron HCl (Zofran) 4 mg STK-MED ONCE .ROUTE ; Start 01/29/18 at 12:42; Stop 10/29/18 at 12:43; Status DC Fentanyl Citrate (Fentanyl 2ml Vial) 100 mcg STK-MED ONCE .ROUTE ; Start at 12:42; Stop 01/29/18 at 12:43; Status DC Midazolam HCl (Versed) 2 mg STK-MED ONCE .ROUTE ; Start 01/29/18 at 12:42; Stop 01/29/18 at 12:43; Status DC Cefazolin Sodium 1 gm/Sodium Chloride 250 ml @ 250 mls/hr 1X ONCE IV ; Start 01/29/18 at 13:00; Stop 01/29/18 at 13:59; Status DC Famotidine (Pepcid Vial) 20 mg STK-MED ONCE .ROUTE ; Start 01/29/18 at 13:07; Stop 01/29/18 at 13:08; Status DC Ephedrine Sulfate (ePHEDrine PF IN SALINE SYRINGE) 50 mg STK-MED ONCE IV ; Start 01/29/18 at 13:42; Stop 01/29/18 at 13:43; Status DC Fentanyl Citrate (Fentanyl 2ml Vial) 100 mcg STK-MED ONCE .ROUTE ; Start at 14:21; Stop 01/29/18 at 14:22; Status DC Insulin Human Lispro (HumaLOG) 20 units 1X ONCE SQ Last administered on at 22:38; Start 01/29/18 at 23:00; Stop 01/29/18 at 23:01; Status DC Vancomycin HCl (Vancomycin Trough Level) 1 each 1X ONCE MC ; Start 01/30/18 at 21:30; Stop 01/30/18 at 21:31 Active Scripts Active Reported Remedy Phytoplex Antifungal (Miconazole Nitrate) 85 Gm Powder 1 Alia TP DAILY Loratadine 10 Mg Tablet 10 Mg PO DAILY Ascorbic Acid 500 Mg Tablet 500 Mg PO BID Hydrochlorothiazide Capsule (Hydrochlorothiazide) 12.5 Mg Capsule 12.5 Mg PO DAILY Glipizide 5 Mg Tablet 1 Tab PO BIDWMEALS Clopidogrel (Clopidogrel Bisulfate) 75 Mg Tablet 75 Mg PO DAILY Tylenol (Acetaminophen) 325 Mg Tablet 325 Mg PO PRN Q4HRS Metformin Hcl 500 Mg Tablet 500 Mg PO BIDWMEALS Lisinopril 20 Mg Tablet 40 Tab PO DAILY Levothyroxine Sodium 25 Mcg Tablet 25 Mcg PO DAILY Aspir 81 (Aspirin) 81 Mg Tablet.dr 81 Mg PO DAILY Amlodipine Besylate 5 Mg Tablet 10 Mg PO DAILY Vitals/I & O Vital Sign - Last 24 Hours 01/29/18 01/29/18 01/29/18 01/29/18 12:50 13:57 14:11 14:12 Temp 97.6 97.6 97.6 97.6 Pulse 79 77 83 Resp 14 16 16 B/P (MAP) 142/73 113/54 122/63 Pulse Ox 98 100 98 O2 Delivery Room Air Simple Mask Room Air Room Air O2 Flow Rate 10 01/29/18 01/29/18 01/29/18 01/29/18 14:24 14:27 14:42 15:00 Temp 97.6 97.6 Pulse 78 76 Resp 18 16 16 B/P (MAP) 134/66 132/63 Pulse Ox 96 97 95 O2 Delivery Room Air Room Air Room Air Room Air 01/29/18 01/29/18 01/29/18 01/29/18 15:00 15:17 15:33 15:48 Temp 98.0 98.0 Pulse 85 80 81 87 Resp 16 B/P (MAP) 111/66 (81) 118/63 (81) 126/101 (109) 137/67 (90) Pulse Ox 95 95 93 93 O2 Delivery Room Air Room Air Room Air Room Air 01/29/18 01/29/18 01/29/18 01/29/18 16:03 16:33 17:02 17:33 Pulse 92 85 93 95 B/P (MAP) 140/53 (82) 135/66 (89) 139/67 (91) Pulse Ox 96 100 96 95 O2 Delivery Room Air Room Air Room Air Room Air 01/29/18 01/29/18 01/29/18 01/30/18 18:10 20:00 23:00 03:00 Temp 97.3 97.5 97.3 97.5 Pulse 96 60 95 B/P (MAP) 134/70 (91) 117/69 (85) 128/65 (86) Pulse Ox 90 96 96 O2 Delivery Room Air Room Air Room Air Room Air 01/30/18 01/30/18 01/30/18 07:00 07:40 08:15 Temp 97.4 97.4 Pulse 80 95 Resp 16 B/P (MAP) 149/76 (100) 128/65 Pulse Ox 97 O2 Delivery Room Air Room Air Intake and Output 01/29/18 01/29/18 01/30/18 15:00 23:00 07:00 Intake Total 20 ml 300 ml Output Total 200 ml Balance -180 ml 300 ml CONRADO FUNK MD Jan 30, 2018 12:12
[2018-01-30 15:00] VITALS: BP 110/64
[2018-01-30 19:00] VITALS: BP 157/59
[2018-01-30 22:46] LABS: VANC TR 19.1 mcg/mL (10.0-20.0)
[2018-01-30 23:00] VITALS: BP 144/59
[2018-01-31] MEDS: VANCOMYCIN PER PHARMACY MC PRN (01:48)
[2018-01-31 03:00] VITALS: BP 165/64
[2018-01-31 05:08] LABS: BASO # 0.1 x10^3/uL (0.0-0.2); BASO % 1 % (0-3); EOS # 0.5 x10^3/uL (0.0-0.7); EOS % 4 % (0-3); HEMOGLOBIN 11.2 g/dL (13.0-17.5); LYMPH % 35 % (24-48); MEAN CORPUSCULAR HEMOGLOBIN 32 pg (25-35); MEAN CORPUSCULAR HGB CONC 35 g/dL (31-37); MEAN CORPUSCULAR VOLUME 90 fL (79-100); MONO # 0.9 x10^3/uL (0.0-1.1); MONO % 8 % (0-9); NEUT % 53 % (31-73); PLATELET COUNT 226 x10^3/uL (140-400); RED BLOOD COUNT 3.56 x10^6/uL (4.30-5.70); RED CELL DISTRIBUTION WIDTH 13.4 % (11.5-14.5); WHITE BLOOD COUNT 11.5 x10^3/uL (4.0-11.0)
[2018-01-31] MEDS: MEROPENEM 500 MG in IV NORMAL SALINE 50ML 50 ML IV SCH ×3 (05:19→22:05)
[2018-01-31] MEDS: LEVOTHYROXINE 25 MCG TABLET. PO SCH (05:19)
[2018-01-31] MEDS: glipiZIDE 5 MG TABLET PO SCH ×2 (05:20→17:00)
[2018-01-31 05:38] LABS: CALCIUM 8.2 mg/dL (8.5-10.1); CREATININE 1.2 mg/dL (0.7-1.3); GFR 60.6; POTASSIUM 4.1 mmol/L (3.5-5.1)
[2018-01-31 07:00] VITALS: BP 122/74
[2018-01-31] MEDS: INSULIN LISPRO 300 UNITS/3 ML INSULN.PEN. SQ SCH ×3 (08:00→17:00)
[2018-01-31] MEDS: ENOXAPARIN 40 MG/0.4 ML SYRINGE. SQ SCH (09:00)
[2018-01-31] MEDS: ASPIRIN ENTERIC COATED 81 MG TABLET.DR. PO SCH (09:36)
[2018-01-31] MEDS: hydroCHLOROthiazide 12.5 MG CAPSULE PO SCH (09:36)
[2018-01-31] MEDS: BENZONATATE 100 MG CAPSULE. PO SCH ×3 (09:36→20:35)
[2018-01-31] MEDS: MULTIVITAMIN I-VITE TABLET. PO SCH (09:36)
[2018-01-31] MEDS: LACTOBACILLUS RHAMNOSUS GG 1 CAPSULE. PO SCH ×2 (09:37→20:35)
[2018-01-31] MEDS: CLOPIDOGREL BISULFATE 75 MG TABLET PO SCH (09:37)
[2018-01-31] MEDS: ASCORBIC ACID 500 MG TABLET PO SCH (09:37)
[2018-01-31] MEDS: metFORMIN 500 MG TABLET PO SCH ×2 (09:37→17:00)
[2018-01-31] MEDS: amLODIPine BESYLATE 10 MG TABLET PO SCH (09:37)
--- NOTE | 2018-01-31 11:01 | PDOC ---
Infectious Disease Note Subjective Subjective feeling good ROS ROS no n/v/d/sob Vital Sign Vital Signs Vital Signs Date Time Temp Pulse Resp B/P (MAP) Pulse Ox O2 Delivery O2 Flow Rate FiO2 01/31/18 09:37 67 122/74 01/31/18 07:00 98.3 16 99 Room Air 98.3 Physical Exam PHYSICAL EXAM GENERAL: Sitting in the chair, smiling HEENT: Oral cavity pink. No thrush NECK: Supple LUNGS: Clear. HEART: S1, S2 regular. ABDOMEN: Obese, soft, NT EXTREMITIES: BLE edema 1+. Left foot bandaged, NEUROLOGIC: Alert and oriented x 3 SKIN: no rash PIV ok Labs Lab Laboratory Tests Test 01/30/18 11:57 01/30/18 16:57 01/30/18 20:28 01/30/18 21:35 Glucose (Fingerstick) 231 mg/dL (70-99) 220 mg/dL (70-99) 216 mg/dL (70-99) Vancomycin Level Trough 19.1 mcg/mL (10.0-20.0) Vancomycin Last Dose Date 01/30/18 Vancomycin Last Dose Time 0400 Test 01/31/18 03:30 01/31/18 07:45 White Blood Count 11.5 x10^3/uL (4.0-11.0) Red Blood Count 3.56 x10^6/uL (4.30-5.70) Hemoglobin 11.2 g/dL (13.0-17.5) Hematocrit 32.0 % (39.0-53.0) Mean Corpuscular Volume 90 fL (79-100) Mean Corpuscular Hemoglobin 32 pg (25-35) Mean Corpuscular Hemoglobin Concent 35 g/dL (31-37) Red Cell Distribution Width 13.4 % (11.5-14.5) Platelet Count 226 x10^3/uL (140-400) Neutrophils (%) (Auto) 53 % (31-73) Lymphocytes (%) (Auto) 35 % (24-48) Monocytes (%) (Auto) 8 % (0-9) Eosinophils (%) (Auto) 4 % (0-3) Basophils (%) (Auto) 1 % (0-3) Neutrophils # (Auto) 6.0 x10^3uL (1.8-7.7) Lymphocytes # (Auto) 4.0 x10^3/uL (1.0-4.8) Monocytes # (Auto) 0.9 x10^3/uL (0.0-1.1) Eosinophils # (Auto) 0.5 x10^3/uL (0.0-0.7) Basophils # (Auto) 0.1 x10^3/uL (0.0-0.2) Sodium Level 145 mmol/L (136-145) Potassium Level 4.1 mmol/L (3.5-5.1) Chloride Level 106 mmol/L (98-107) Carbon Dioxide Level 28 mmol/L (21-32) Anion Gap 11 (6-14) Blood Urea Nitrogen 44 mg/dL (8-26) Creatinine 1.2 mg/dL (0.7-1.3) Estimated GFR (Cockcroft-Gault) 60.6 Glucose Level 186 mg/dL (70-99) Calcium Level 8.2 mg/dL (8.5-10.1) Glucose (Fingerstick) 101 mg/dL (70-99) Micro Microbiology 01/23/18 Blood Culture - Preliminary, Resulted NO GROWTH AFTER 1 DAY Objective Assessment Osteomyelitis of 3 rd met. growth of Enterobacter and PSAE s/p surgery on 01/29 DM PAD HTN Plan Plan of Care Cont IV meropenem d/c vanc f/u cultures Monitor labs/renal function Probiotics supportive care D/w RN picc JUSTINA ROSSI MD Jan 31, 2018 11:01
[2018-01-31 11:25] VITALS: BP 153/74
--- NOTE | 2018-01-31 11:31 | PDOC ---
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) History of Present Illness History of Present Illness Pt seen and examined while sitting at the foot of the bed Pt was very pleasant, polite and said he feels good and is ready for d/c Discussed w/RN Vitals Vitals Vital Signs Date Time Temp Pulse Resp B/P (MAP) Pulse Ox O2 Delivery O2 Flow Rate FiO2 01/31/18 09:37 67 122/74 01/31/18 07:40 Room Air 01/31/18 07:00 98.3 16 99 98.3 Physical Exam Physical Exam HEENT: Oral cavity pink. Mucus membranes moist Neck: Supple. No JVD General: Alert, Cooperative, No acute distress, Other (Sitting on foot of bed, smiling and talking about dressing up as either a cat or witch today for Halloween) Heart: Regular rate, No murmurs Lungs: Clear Abdomen: Normal bowel sounds, Soft, No tenderness Extremities: Other (Left foot bandages clean, dry and intact) Skin: No rashes Labs LABS Laboratory Tests Test 01/30/18 11:57 01/30/18 16:57 01/30/18 20:28 01/30/18 21:35 Glucose (Fingerstick) 231 mg/dL (70-99) 220 mg/dL (70-99) 216 mg/dL (70-99) Vancomycin Level Trough 19.1 mcg/mL (10.0-20.0) Vancomycin Last Dose Date 01/30/18 Vancomycin Last Dose Time 0400 Test 01/31/18 03:30 01/31/18 07:45 01/31/18 11:04 White Blood Count 11.5 x10^3/uL (4.0-11.0) Red Blood Count 3.56 x10^6/uL (4.30-5.70) Hemoglobin 11.2 g/dL (13.0-17.5) Hematocrit 32.0 % (39.0-53.0) Mean Corpuscular Volume 90 fL (79-100) Mean Corpuscular Hemoglobin 32 pg (25-35) Mean Corpuscular Hemoglobin Concent 35 g/dL (31-37) Red Cell Distribution Width 13.4 % (11.5-14.5) Platelet Count 226 x10^3/uL (140-400) Neutrophils (%) (Auto) 53 % (31-73) Lymphocytes (%) (Auto) 35 % (24-48) Monocytes (%) (Auto) 8 % (0-9) Eosinophils (%) (Auto) 4 % (0-3) Basophils (%) (Auto) 1 % (0-3) Neutrophils # (Auto) 6.0 x10^3uL (1.8-7.7) Lymphocytes # (Auto) 4.0 x10^3/uL (1.0-4.8) Monocytes # (Auto) 0.9 x10^3/uL (0.0-1.1) Eosinophils # (Auto) 0.5 x10^3/uL (0.0-0.7) Basophils # (Auto) 0.1 x10^3/uL (0.0-0.2) Sodium Level 145 mmol/L (136-145) Potassium Level 4.1 mmol/L (3.5-5.1) Chloride Level 106 mmol/L (98-107) Carbon Dioxide Level 28 mmol/L (21-32) Anion Gap 11 (6-14) Blood Urea Nitrogen 44 mg/dL (8-26) Creatinine 1.2 mg/dL (0.7-1.3) Estimated GFR (Cockcroft-Gault) 60.6 Glucose Level 186 mg/dL (70-99) Calcium Level 8.2 mg/dL (8.5-10.1) Glucose (Fingerstick) 101 mg/dL (70-99) 147 mg/dL (70-99) Review of Systems Review of Systems Denies pain Pt states he's feeling good and has good appetite Assessment and Plan Assessmemt and Plan Assessment: Left diabetic foot cellulitis/osteomyelitis Hyperglycemia H/o DM H/o PAD H/o MRSA H/o cognitive disability H/o HTN H/o hypothyroidism H/o amputation (2 toes on left foot) Plan: Cont wound vac Cont IV abx Probable d/c to SNU today Home meds PT/OT Comment Review of Relevant I have reviewed the following items billy (where applicable) has been applied. Labs Laboratory Tests Test 01/29/18 14:05 01/29/18 16:09 01/29/18 20:55 01/30/18 03:10 Glucose (Fingerstick) 103 mg/dL (70-99) 150 mg/dL (70-99) 442 mg/dL (70-99) White Blood Count 11.9 x10^3/uL (4.0-11.0) Red Blood Count 3.76 x10^6/uL (4.30-5.70) Hemoglobin 12.0 g/dL (13.0-17.5) Hematocrit 33.7 % (39.0-53.0) Mean Corpuscular Volume 90 fL (79-100) Mean Corpuscular Hemoglobin 32 pg (25-35) Mean Corpuscular Hemoglobin Concent 36 g/dL (31-37) Red Cell Distribution Width 13.3 % (11.5-14.5) Platelet Count 246 x10^3/uL (140-400) Neutrophils (%) (Auto) 79 % (31-73) Lymphocytes (%) (Auto) 14 % (24-48) Monocytes (%) (Auto) 6 % (0-9) Eosinophils (%) (Auto) 0 % (0-3) Basophils (%) (Auto) 1 % (0-3) Neutrophils # (Auto) 9.4 x10^3uL (1.8-7.7) Lymphocytes # (Auto) 1.7 x10^3/uL (1.0-4.8) Monocytes # (Auto) 0.7 x10^3/uL (0.0-1.1) Eosinophils # (Auto) 0.0 x10^3/uL (0.0-0.7) Basophils # (Auto) 0.1 x10^3/uL (0.0-0.2) Sodium Level 143 mmol/L (136-145) Potassium Level 4.5 mmol/L (3.5-5.1) Chloride Level 104 mmol/L (98-107) Carbon Dioxide Level 24 mmol/L (21-32) Anion Gap 15 (6-14) Blood Urea Nitrogen 45 mg/dL (8-26) Creatinine 1.2 mg/dL (0.7-1.3) Estimated GFR (Cockcroft-Gault) 60.6 Glucose Level 223 mg/dL (70-99) Calcium Level 8.4 mg/dL (8.5-10.1) Test 01/30/18 07:42 01/30/18 11:57 01/30/18 16:57 01/30/18 20:28 Glucose (Fingerstick) 150 mg/dL (70-99) 231 mg/dL (70-99) 220 mg/dL (70-99) 216 mg/dL (70-99) Test 01/30/18 21:35 01/31/18 03:30 01/31/18 07:45 01/31/18 11:04 Vancomycin Level Trough 19.1 mcg/mL (10.0-20.0) Vancomycin Last Dose Date 01/30/18 Vancomycin Last Dose Time 0400 White Blood Count 11.5 x10^3/uL (4.0-11.0) Red Blood Count 3.56 x10^6/uL (4.30-5.70) Hemoglobin 11.2 g/dL (13.0-17.5) Hematocrit 32.0 % (39.0-53.0) Mean Corpuscular Volume 90 fL (79-100) Mean Corpuscular Hemoglobin 32 pg (25-35) Mean Corpuscular Hemoglobin Concent 35 g/dL (31-37) Red Cell Distribution Width 13.4 % (11.5-14.5) Platelet Count 226 x10^3/uL (140-400) Neutrophils (%) (Auto) 53 % (31-73) Lymphocytes (%) (Auto) 35 % (24-48) Monocytes (%) (Auto) 8 % (0-9) Eosinophils (%) (Auto) 4 % (0-3) Basophils (%) (Auto) 1 % (0-3) Neutrophils # (Auto) 6.0 x10^3uL (1.8-7.7) Lymphocytes # (Auto) 4.0 x10^3/uL (1.0-4.8) Monocytes # (Auto) 0.9 x10^3/uL (0.0-1.1) Eosinophils # (Auto) 0.5 x10^3/uL (0.0-0.7) Basophils # (Auto) 0.1 x10^3/uL (0.0-0.2) Sodium Level 145 mmol/L (136-145) Potassium Level 4.1 mmol/L (3.5-5.1) Chloride Level 106 mmol/L (98-107) Carbon Dioxide Level 28 mmol/L (21-32) Anion Gap 11 (6-14) Blood Urea Nitrogen 44 mg/dL (8-26) Creatinine 1.2 mg/dL (0.7-1.3) Estimated GFR (Cockcroft-Gault) 60.6 Glucose Level 186 mg/dL (70-99) Calcium Level 8.2 mg/dL (8.5-10.1) Glucose (Fingerstick) 101 mg/dL (70-99) 147 mg/dL (70-99) Laboratory Tests Test 01/30/18 11:57 01/30/18 16:57 01/30/18 20:28 01/30/18 21:35 Glucose (Fingerstick) 231 mg/dL (70-99) 220 mg/dL (70-99) 216 mg/dL (70-99) Vancomycin Level Trough 19.1 mcg/mL (10.0-20.0) Vancomycin Last Dose Date 01/30/18 Vancomycin Last Dose Time 0400 Test 01/31/18 03:30 01/31/18 07:45 01/31/18 11:04 White Blood Count 11.5 x10^3/uL (4.0-11.0) Red Blood Count 3.56 x10^6/uL (4.30-5.70) Hemoglobin 11.2 g/dL (13.0-17.5) Hematocrit 32.0 % (39.0-53.0) Mean Corpuscular Volume 90 fL (79-100) Mean Corpuscular Hemoglobin 32 pg (25-35) Mean Corpuscular Hemoglobin Concent 35 g/dL (31-37) Red Cell Distribution Width 13.4 % (11.5-14.5) Platelet Count 226 x10^3/uL (140-400) Neutrophils (%) (Auto) 53 % (31-73) Lymphocytes (%) (Auto) 35 % (24-48) Monocytes (%) (Auto) 8 % (0-9) Eosinophils (%) (Auto) 4 % (0-3) Basophils (%) (Auto) 1 % (0-3) Neutrophils # (Auto) 6.0 x10^3uL (1.8-7.7) Lymphocytes # (Auto) 4.0 x10^3/uL (1.0-4.8) Monocytes # (Auto) 0.9 x10^3/uL (0.0-1.1) Eosinophils # (Auto) 0.5 x10^3/uL (0.0-0.7) Basophils # (Auto) 0.1 x10^3/uL (0.0-0.2) Sodium Level 145 mmol/L (136-145) Potassium Level 4.1 mmol/L (3.5-5.1) Chloride Level 106 mmol/L (98-107) Carbon Dioxide Level 28 mmol/L (21-32) Anion Gap 11 (6-14) Blood Urea Nitrogen 44 mg/dL (8-26) Creatinine 1.2 mg/dL (0.7-1.3) Estimated GFR (Cockcroft-Gault) 60.6 Glucose Level 186 mg/dL (70-99) Calcium Level 8.2 mg/dL (8.5-10.1) Glucose (Fingerstick) 101 mg/dL (70-99) 147 mg/dL (70-99) Microbiology 01/23/18 Blood Culture - Final, Complete NO GROWTH AFTER 5 DAYS 01/29/18 Anaerobic/Aerobic Culture, Resulted Pending 01/29/18 Anaerobic Culture Result 1 (ILDA), Resulted Pending 01/29/18 Aerobic Culture, Resulted Pending 01/29/18 Aerobic Culture Result 1 (ILDA), Resulted Pending 01/29/18 Gram Stain - Final, Resulted 01/29/18 Gram Stain Result 1 (ILDA) - Final, Resulted 01/29/18 Gram Stain Result 2 (ILDA) - Final, Resulted Medications Current Medications Vancomycin HCl (Vanco Per Pharmacy) 1 each PRN DAILY PRN MC SEE COMMENTS Last administered on 01/31/18at 01:48; Start 01/23/18 at 17:15; Stop 01/31/18 at 11 :02; Status DC Meropenem 500 mg/ Sodium Chloride 50 ml @ 100 mls/hr Q8HRS IV Last administered on 01/31/18at 05:19; Start 01/23/18 at 22:00 Sodium Chloride 1,000 ml @ 75 mls/hr [id number] IV ; Start 01/23/18 at 17:15; Status Cancel Insulin Human Lispro (HumaLOG) 0-5 UNITS TIDWMEALS SQ Last administered on at 17:15; Start 01/23/18 at 17:30 Dextrose (Dextrose 50%-Water Syringe) 12.5 gm PRN Q15MIN PRN IV SEE COMMENTS; Start 01/23/18 at 17:15 Vancomycin HCl 1.75 gm/Sodium Chloride 500 ml @ 250 mls/hr 1X ONCE IV Last administered on 01/23/18at 17:58; Start 01/23/18 at 17:30; Stop 01/23/18 at 19 :29; Status DC Meropenem 500 mg/ Sodium Chloride 50 ml @ 100 mls/hr 1X ONCE IV Last administered on 01/23/18at 17:57; Start 01/23/18 at 17:30; Stop 01/23/18 at 17 :59; Status DC Acetaminophen (Tylenol) 650 mg PRN Q4HRS PO ; Start 01/23/18 at 17:15; Status UNV Amlodipine Besylate (Norvasc) 10 mg BID PO Last administered on 01/25/18at 09: 27; Start 01/23/18 at 21:00; Stop 01/25/18 at 16:22; Status DC Ascorbic Acid (Vitamin C) 500 mg DAILY PO Last administered on 01/31/18at 09:37 ; Start 01/24/18 at 09:00 Aspirin (Ecotrin) 81 mg DAILY PO Last administered on 01/31/18at 09:36; Start 01/24/18 at 09:00 Clopidogrel Bisulfate (Plavix) 75 mg DAILY PO Last administered on 01/31/18at 09:37; Start 01/24/18 at 09:00 Glipizide (Glucotrol) 5 mg BIDAC PO Last administered on 01/31/18at 05:20; Start 01/24/18 at 07:30 Lisinopril (Prinivil) 40 mg BID PO Last administered on 01/25/18at 09:26; Start 01/23/18 at 21:00; Stop 01/25/18 at 16:23; Status DC Metoprolol Tartrate (Lopressor) 25 mg DAILY PO Last administered on 01/25/18 09:28; Start 01/24/18 at 09:00; Stop 01/25/18 at 16:22; Status DC Hydrochlorothiazide (Microzide) 12.5 mg DAILY PO Last administered on at 09:36; Start 01/24/18 at 09:00 Levothyroxine Sodium (Synthroid) 25 mcg DAILY06 PO Last administered on 05:19; Start 01/24/18 at 06:00 Metformin HCl (Glucophage) 500 mg BIDWMEALS PO Last administered on 01/31/18at 09:37; Start 01/23/18 at 18:00 Multivitamins/ Minerals (I-Erica) 1 tab DAILY PO Last administered on 09:36; Start 01/24/18 at 09:00 Sodium Chloride (Normal Saline Flush 3ml) 3 ml QSHIFT PRN IV AFTER MEDS AND BLOOD DRAWS; Start 01/23/18 at 17:30 Sodium Chloride 1,000 ml @ 100 mls/hr Q10H IV Last administered on 01/25/18at 06:11; Start 01/23/18 at 18:00; Stop 01/25/18 at 17:43; Status DC Ondansetron HCl (Zofran) 4 mg PRN Q4HRS PRN IV NAUSEA/VOMITING; Start at 17:30 Acetaminophen (Tylenol) 650 mg PRN Q4HRS PRN PO TEMP OVER 100.4F OR MILD PAIN; Start 01/23/18 at 17:30 Al Hydroxide/Mg Hydroxide (Mylanta Plus Xs) 30 ml PRN DAILY PRN PO HEARTBURN / GAS; Start 01/23/18 at 17:30 Sodium Monofluorophosphate (Fleet Adult) 133 ml PRN DAILY PRN MD CONSTIPATION; Start 01/23/18 at 17:30 Docusate Sodium (Colace) 100 mg PRN BID PRN PO CONSTIPATION Last administered on 01/28/18at 08:50; Start 01/23/18 at 17:30 Albuterol Sulfate (Ventolin Neb Soln) 2.5 mg PRN Q4HRS PRN NEB SHORTNESS OF BREATH; Start 01/23/18 at 17:30 Guaifenesin (Robitussin) 200 mg PRN Q4HRS PRN PO COUGH Last administered on at 16:24; Start 01/23/18 at 17:30 Enoxaparin Sodium (Lovenox 40mg Syringe) 40 mg DAILY SQ ; Start 01/24/18 at 09: 00 Vancomycin HCl 1 gm/Dextrose 250 ml @ 250 mls/hr 1X ONCE IV ; Start 01/23/18 at 17:30; Stop 01/23/18 at 18:29; Status UNV Vancomycin HCl (Vanco Per Pharmacy) 1 each PRN DAILY PRN MC SEE COMMENTS; Start 01/23/18 at 17:30; Status UNV Acetaminophen/ Hydrocodone Bitart (Lortab 5/325) 1 tab PRN Q6HRS PRN PO MOD TO SEVERE PAIN; Start 01/23/18 at 18:30 Vancomycin HCl 1.25 gm/Sodium Chloride 250 ml @ 250 mls/hr Q18H IV Last administered on 01/25/18at 07:25; Start 01/24/18 at 12:00; Stop 01/25/18 at 09 :00; Status DC Vancomycin HCl (Vancomycin Trough Level) 1 each 1X ONCE MC Last administered on 01/25/18at 06:30; Start 01/25/18 at 05:30; Stop 01/25/18 at 05:31; Status DC Lactobacillus Rhamnosus (Culturelle) 1 cap BID PO Last administered on at 09:37; Start 01/24/18 at 21:00 Vancomycin HCl 1.25 gm/Sodium Chloride 250 ml @ 250 mls/hr Q12H IV Last administered on 01/26/18at 19:59; Start 01/25/18 at 20:00; Stop 01/27/18 at 08 :54; Status DC Amlodipine Besylate (Norvasc) 10 mg DAILY PO Last administered on 01/31/18at 09 :37; Start 01/26/18 at 09:00 Lisinopril (Prinivil) 40 mg DAILY PO Last administered on 01/28/18at 08:55; Start 01/26/18 at 09:00; Stop 01/28/18 at 13:54; Status DC Vancomycin HCl (Vancomycin Trough Level) 1 each 1X ONCE MC ; Start 01/27/18 at 07:30; Stop 01/27/18 at 07:31; Status DC Ondansetron HCl (Zofran) 4 mg PRN Q6HRS PRN IV NAUSEA/VOMITING; Start at 07:00; Stop 01/30/18 at 06:59; Status DC Fentanyl Citrate (Fentanyl 2ml Vial) 25 mcg PRN Q5MIN PRN IV MILD PAIN; Start 01/29/18 at 07:00; Stop 01/30/18 at 06:59; Status DC Fentanyl Citrate (Fentanyl 2ml Vial) 50 mcg PRN Q5MIN PRN IV MODERATE TO SEVERE PAIN Last administered on 01/29/18at 14:24; Start 01/29/18 at 07:00; Stop 01/30/18 at 06:59; Status DC Morphine Sulfate (Morphine Sulfate) 1 mg PRN Q10MIN PRN IV SEVERE PAIN; Start 01/29/18 at 07:00; Stop 01/30/18 at 06:59; Status DC Ringer's Solution 1,000 ml @ 30 mls/hr Q24H IV ; Start 01/29/18 at 07:00; Stop 01/29/18 at 18:59; Status DC Lidocaine HCl (Xylocaine-Mpf 1% 2ml Vial) 2 ml PRN 1X PRN ID PRIOR TO IV START ; Start 01/29/18 at 07:00; Stop 01/30/18 at 06:59; Status DC Hydromorphone HCl (Dilaudid) 0.5 mg PRN Q10MIN PRN IV SEV PAIN, Second choice; Start 01/29/18 at 07:00; Stop 01/30/18 at 06:59; Status DC Prochlorperazine Edisylate (Compazine) 5 mg PACU PRN PRN IV NAUSEA, MRX1; Start 01/29/18 at 07:00; Stop 01/30/18 at 06:59; Status DC Vancomycin HCl (Vancomycin Random Level) 1 each 1X ONCE MC Last administered on 01/27/18at 19:00; Start 01/27/18 at 19:00; Stop 01/27/18 at 19:01; Status DC Benzonatate (Tessalon Perle) 100 mg TRI543 PO Last administered on 01/31/18at 09:36; Start 01/27/18 at 14:00 Vancomycin HCl 1.25 gm/Sodium Chloride 250 ml @ 166.667 mls/hr Q18H IV Last administered on 01/30/18at 22:00; Start 01/27/18 at 22:00; Stop 01/31/18 at 11 :02; Status DC Promethazine HCl/ Codeine (Phenergan With Codeine Oral Syrup) 5 ml PRN Q4HRS PRN PO COUGH 2ND CHOICE Last administered on 01/29/18at 19:09; Start 01/28/18 at 14:00 Propofol 20 ml @ As Directed STK-MED ONCE IV ; Start 01/29/18 at 12:42; Stop 01/29/18 at 12:43; Status DC Dexamethasone Sodium Phosphate (Decadron) 20 mg STK-MED ONCE .ROUTE ; Start at 12:42; Stop 01/29/18 at 12:43; Status DC Famotidine (Pepcid Vial) 20 mg STK-MED ONCE .ROUTE ; Start 01/29/18 at 12:42; Stop 01/29/18 at 12:43; Status DC Lidocaine HCl (Lidocaine Pf 2% Vial) 5 ml STK-MED ONCE .ROUTE ; Start 01/29/18 at 12:42; Stop 01/29/18 at 12:43; Status DC Ondansetron HCl (Zofran) 4 mg STK-MED ONCE .ROUTE ; Start 01/29/18 at 12:42; Stop 01/29/18 at 12:43; Status DC Fentanyl Citrate (Fentanyl 2ml Vial) 100 mcg STK-MED ONCE .ROUTE ; Start at 12:42; Stop 01/29/18 at 12:43; Status DC Midazolam HCl (Versed) 2 mg STK-MED ONCE .ROUTE ; Start 01/29/18 at 12:42; Stop 01/29/18 at 12:43; Status DC Cefazolin Sodium 1 gm/Sodium Chloride 250 ml @ 250 mls/hr 1X ONCE IV ; Start 01/29/18 at 13:00; Stop 01/29/18 at 13:59; Status DC Famotidine (Pepcid Vial) 20 mg STK-MED ONCE .ROUTE ; Start 01/29/18 at 13:07; Stop 01/29/18 at 13:08; Status DC Ephedrine Sulfate (ePHEDrine PF IN SALINE SYRINGE) 50 mg STK-MED ONCE IV ; Start 01/29/18 at 13:42; Stop 01/29/18 at 13:43; Status DC Fentanyl Citrate (Fentanyl 2ml Vial) 100 mcg STK-MED ONCE .ROUTE ; Start at 14:21; Stop 01/29/18 at 14:22; Status DC Insulin Human Lispro (HumaLOG) 20 units 1X ONCE SQ Last administered on at 22:38; Start 01/29/18 at 23:00; Stop 01/29/18 at 23:01; Status DC Vancomycin HCl (Vancomycin Trough Level) 1 each 1X ONCE MC Last administered on 01/30/18at 21:30; Start 01/30/18 at 21:30; Stop 01/30/18 at 21:31; Status DC Active Scripts Active Reported Remedy Phytoplex Antifungal (Miconazole Nitrate) 85 Gm Powder 1 Alia TP DAILY Loratadine 10 Mg Tablet 10 Mg PO DAILY Ascorbic Acid 500 Mg Tablet 500 Mg PO BID Hydrochlorothiazide Capsule (Hydrochlorothiazide) 12.5 Mg Capsule 12.5 Mg PO DAILY Glipizide 5 Mg Tablet 1 Tab PO BIDWMEALS Clopidogrel (Clopidogrel Bisulfate) 75 Mg Tablet 75 Mg PO DAILY Tylenol (Acetaminophen) 325 Mg Tablet 325 Mg PO PRN Q4HRS Metformin Hcl 500 Mg Tablet 500 Mg PO BIDWMEALS Lisinopril 20 Mg Tablet 40 Tab PO DAILY Levothyroxine Sodium 25 Mcg Tablet 25 Mcg PO DAILY Aspir 81 (Aspirin) 81 Mg Tablet.dr 81 Mg PO DAILY Amlodipine Besylate 5 Mg Tablet 10 Mg PO DAILY Vitals/I & O Vital Sign - Last 24 Hours 01/30/18 01/30/18 01/30/18 01/30/18 15:00 19:00 20:00 23:00 Temp 98.1 97.6 98.5 98.1 97.6 98.5 Pulse 80 77 77 Resp 14 14 14 B/P (MAP) 110/64 (79) 157/59 (91) 144/59 (87) Pulse Ox 97 98 98 O2 Delivery Room Air Room Air Room Air Room Air 01/31/18 01/31/18 01/31/18 01/31/18 03:00 07:00 07:40 09:37 Temp 97.7 98.3 97.7 98.3 Pulse 70 67 67 Resp 14 16 B/P (MAP) 165/64 (97) 122/74 (90) 122/74 Pulse Ox 97 99 O2 Delivery Room Air Room Air Room Air Intake and Output 01/30/18 01/30/18 01/31/18 15:00 23:00 07:00 Intake Total 300 ml 300 ml Output Total 200 ml Balance 100 ml 300 ml ERIKA REEVES III DO Jan 31, 2018 11:31
--- NOTE | 2018-01-31 11:37 | DISCH ---
DISCHARGE DISCHARGE INFORMATION: DISCHARGE DATE: Jan 31, 2018 CONDITION ON DISCHARGE: Stable CODE STATUS: Code Status: Full GROUP HOME: SNF STAY <30 DAYS: Yes HOSPICE: HOSPICE: No HOSPICE EVAL & TREAT: No LTAC: ADMIT TO LTAC: No POST DISCHARGE ORDERS: ACTIVITY ORDERS: Activity as tolerated, Other, see below WEIGHT BEARING STATUS: As tolerated, Other, see below DIET AFTER DISCHARGE: Cardiac WOUND/INCISION CARE: Other, see below (wound care osteomyelitis left foot) CHECKS AFTER DISCHARGE: CHECKS AFTER DISCHARGE: Check blood press - daily TREATMENT/EQUIPMENT ORDERS: ADAPTIVE EQUIPMENT NEEDED: None Physical Therapy For: Evalulation/Treatment Occupational Therapy For: Evaluation/Treatment DISCHARGE MEDICATIONS: Home Meds Reported Medications Miconazole Nitrate (Remedy Phytoplex Antifungal) 85 Gm Powder, 1 MARIE TP DAILY, MISC 01/25/18 Loratadine (LORATADINE) 10 Mg Tablet, 10 MG PO DAILY, TAB 01/25/18 Ascorbic Acid (ASCORBIC ACID) 500 Mg Tablet, 500 MG PO BID, TAB 01/23/18 Hydrochlorothiazide (HYDROCHLOROTHIAZIDE CAPSULE ) 12.5 Mg Capsule, 12.5 MG PO DAILY, #30 CAP 5 Refills 01/23/18 Glipizide (GLIPIZIDE) 5 Mg Tablet, 1 TAB PO BIDWMEALS, #60 TAB 3 Refills 01/23/18 Clopidogrel Bisulfate (CLOPIDOGREL) 75 Mg Tablet, 75 MG PO DAILY, #90 TAB 1 Refill 01/23/18 Acetaminophen (TYLENOL) 325 Mg Tablet, 325 MG PO PRN Q4HRS, #30 TAB 01/23/18 Metformin Hcl (METFORMIN HCL) 500 Mg Tablet, 500 MG PO BIDWMEALS, #60 TAB 3 Refills 06/17/15 Lisinopril (LISINOPRIL) 20 Mg Tablet, 40 TAB PO DAILY, #30 TAB 5 Refills 06/17/15 Levothyroxine Sodium (LEVOTHYROXINE SODIUM) 25 Mcg Tablet, 25 MCG PO DAILY, #30 TAB 5 Refills 06/17/15 Aspirin (ASPIR 81) 81 Mg Tablet.dr, 81 MG PO DAILY, #30 TAB 5 Refills 06/17/15 Amlodipine Besylate (AMLODIPINE BESYLATE) 5 Mg Tablet, 10 MG PO DAILY, TAB 06/17/15 Discontinued Reported Medications Metoprolol Tartrate (METOPROLOL TARTRATE) 25 Mg Tablet, 1 TAB PO DAILY, #180 TAB 1 Refill 01/23/18 Multivitamin (MULTI-VITAMIN DAILY) 1 Each Tablet, 1 EACH PO, TAB 01/23/18 ERIKA REEVES III DO Jan 31, 2018 11:36
[2018-01-31] MEDS ORDERED: LIDOCAINE WITH 8.4% SOD BICARB 3 ML DISP.SYRIN. ONE (13:11)
[2018-01-31] MEDS ORDERED: LIDOCAINE WITH 8.4% SOD BICARB 3 ML DISP.SYRIN. INJ ONE (13:30)
--- NOTE | 2018-01-31 14:27 | RAD ---
Exam: Fluoroscopic and ultrasound guided right percutaneous inserted central venous catheter placement 01/31/2018 2:23 PM .Indication: Long-term IV antibiotic Technique: Informed oral and written consent were obtained. The right upper extremity was prepped and draped using sterile barrier technique. All elements of maximal sterile barrier technique including the use of a cap, mask, sterile gown, sterile gloves, large sterile sheet, appropriate hand hygiene, and 2% chlorhexidine for cutaneous antisepsis (or acceptable alternative antiseptic per current guidelines) were followed for this procedure.. Real-time ultrasound demonstrated a patent right basilic vein which was prepped and draped in usual sterile fashion. 1% lidocaine used for local anesthesia. Using real-time ultrasound guidance the access needle percutaneously punctured the selected right basilic vein. Reference ultrasound images were saved to the medical record. A guidewire was advanced through the needle to the cavoatrial junction, and a peel-away sheath placed. The catheter was cut to length and inserted through the peel-away sheath such that its tip is at the cavoatrial junction. The wire and sheath were removed, and the catheter secured in place, and a sterile dressing was applied. Catheter was found to flush and aspirate normally. No immediate complications are identified. FLUORO TIME: 0.3 DOSE AREA PRODUCT: 1 Gycm2 Impression: Ultrasound and fluoroscopically guided placement of a right upper extremity PICC line.
--- NOTE | 2018-01-31 14:52 | PDOC ---
Provider Note Provider Note Off floor. F/u with Dr. Strauss upon discharge. JOE DAIGLE MD Jan 31, 2018 14:52
[2018-01-31 15:00] VITALS: BP 110/54
[2018-01-31 19:00] VITALS: BP 118/96
[2018-01-31 23:00] VITALS: BP 115/81
[2018-02-01 03:00] VITALS: BP 116/86
[2018-02-01] MEDS: MEROPENEM 500 MG in IV NORMAL SALINE 50ML 50 ML IV SCH (05:54)
[2018-02-01] MEDS: LEVOTHYROXINE 25 MCG TABLET. PO SCH (05:58)
[2018-02-01 07:00] VITALS: BP 153/77
[2018-02-01] MEDS: INSULIN LISPRO 300 UNITS/3 ML INSULN.PEN. SQ SCH ×3 (08:00→16:58)
[2018-02-01] MEDS: ENOXAPARIN 40 MG/0.4 ML SYRINGE. SQ SCH (09:00)
[2018-02-01] MEDS: LACTOBACILLUS RHAMNOSUS GG 1 CAPSULE. PO SCH ×2 (09:32→21:17)
[2018-02-01] MEDS: ASCORBIC ACID 500 MG TABLET PO SCH (09:32)
[2018-02-01] MEDS: CLOPIDOGREL BISULFATE 75 MG TABLET PO SCH (09:32)
[2018-02-01] MEDS: ASPIRIN ENTERIC COATED 81 MG TABLET.DR. PO SCH (09:32)
[2018-02-01] MEDS: glipiZIDE 5 MG TABLET PO SCH ×2 (09:32→16:54)
[2018-02-01] MEDS: hydroCHLOROthiazide 12.5 MG CAPSULE PO SCH (09:32)
[2018-02-01] MEDS: MULTIVITAMIN I-VITE TABLET. PO SCH (09:32)
[2018-02-01] MEDS: BENZONATATE 100 MG CAPSULE. PO SCH ×3 (09:32→21:17)
[2018-02-01] MEDS: metFORMIN 500 MG TABLET PO SCH ×2 (09:33→16:54)
[2018-02-01] MEDS: amLODIPine BESYLATE 10 MG TABLET PO SCH (09:35)
--- NOTE | 2018-02-01 10:03 | PDOC ---
Provider Note Provider Note S: pt without complaints O: afebrile, vss wound vac in place left forefoot cultures pending A: status post left 3rd metarsal head and distal metarsal resection. Pt doing well P: cont. f/u at [facility] post discharge cont. antibx per I.D. WANDA BRADFORD II, MD Feb 01, 2018 10:03
--- NOTE | 2018-02-01 10:34 | PDOC ---
Infectious Disease Note Subjective Subjective Upset about co-pay amount Otherwise feeling alright Denies pain/F/C/N/V/D ROS ROS pr HPI otherwise neg Vital Sign Vital Signs Vital Signs Date Time Temp Pulse Resp B/P (MAP) Pulse Ox O2 Delivery O2 Flow Rate FiO2 02/01/18 09:35 81 153/77 02/01/18 07:00 97.6 16 96 Room Air 97.6 Physical Exam PHYSICAL EXAM GENERAL: Propped up in bed, alert, NAD HEENT: Oral cavity pink. No thrush NECK: Supple LUNGS: Clear. HEART: S1, S2 regular. ABDOMEN: Obese, soft, NT EXTREMITIES: BLE edema 1+. Left foot wound vac in place NEUROLOGIC: Alert and oriented x 3 SKIN: no rash RUE-PICC (01/31) w/o signs of infection Labs Lab Laboratory Tests Test 01/31/18 11:04 01/31/18 16:30 01/31/18 20:30 02/01/18 07:54 Glucose (Fingerstick) 147 mg/dL (70-99) 150 mg/dL (70-99) 179 mg/dL (70-99) 110 mg/dL (70-99) Micro AEROBIC RES 1 Final Enterobacter cloacae AEROBIC RES 2 Final Pseudomonas aeruginosa MICS are expressed in micrograms per mL Antibiotic RSLT#1 RSLT#2 Amikacin S<=2 Amoxicillin/Clavulanic Acid R>=32 Cefazolin R>=64 Cefepime S<=0.12 S =2 Ceftazidime S =4 Cefuroxime R =R Ciprofloxacin S<=0.25 S<=0.25 Ertapenem S<=0.12 Gentamicin S<=1 S<=1 Imipenem S<=0.25 S =2 Levofloxacin S<=0.12 S =1 Meropenem S<=0.25 S =0.5 Piperacillin S =8 Tetracycline S<=1 Ticarcillin S =32 Tobramycin S<=1 S<=1 Trimethoprim/Sulfa S<=20 Objective Assessment Osteomyelitis of 3 rd met. Enterobacter and PSAE s/p wedge resection of the left third metatarsal head on 01/29 DM PAD HTN DM PAD Plan Plan of Care Cont meropenem (no once daily options) but change to 1 gm q 12. WILL NEED FOLLOW -UP APPT IN OUR OFFICE IN 2 WEEKS. ANTIBIOTICS ARE NOT TO BE STOPPED Weekly CBC, CMP and ESR faxed to [phone] Probiotics If transferred he will need IV abx for 4 to 6 weeks total D/w RN Attending Co-Sign Attending Co-Sign The patient was seen and interviewed as well as examined at the bedside. The chart was reviewed. The case was discussed. Agree with the plan of care. FARHAT RUEDA APRN Feb 01, 2018 10:34 AMY GURROLA MD Feb 01, 2018 13:59
[2018-02-01 11:02] VITALS: BP 148/72
--- NOTE | 2018-02-01 12:57 | PDOC ---
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) History of Present Illness History of Present Illness Pt seen and examined while sitting at the foot of the bed Pt continues to be very pleasant and bubbly Discussed w/RN Vitals Vitals Vital Signs Date Time Temp Pulse Resp B/P (MAP) Pulse Ox O2 Delivery O2 Flow Rate FiO2 02/01/18 11:02 98.5 81 16 148/72 (97) 100 Room Air 98.5 Physical Exam Physical Exam HEENT: Mucus membranes moist Neck: Supple, No JVD General: Alert, Cooperative, No acute distress, Other (Sitting on foot of bed, talkative and happy) Heart: Regular rate, Normal S1, Normal S2, No murmurs Lungs: Clear Abdomen: Normal bowel sounds, Soft, No tenderness Extremities: Other (Left foot bandages clean, dry and intact) Skin: No rashes Labs LABS Laboratory Tests Test 01/31/18 16:30 01/31/18 20:30 02/01/18 07:54 02/01/18 11:42 Glucose (Fingerstick) 150 mg/dL (70-99) 179 mg/dL (70-99) 110 mg/dL (70-99) 112 mg/dL (70-99) Review of Systems Review of Systems C/o mild cough Otherwise feeling well and ready for d/c Assessment and Plan Assessmemt and Plan Assessment: Left diabetic foot cellulitis/osteomyelitis s/p 3rd toe metatarsal resection Hyperglycemia H/o DM H/o PAD H/o MRSA H/o cognitive disability H/o HTN H/o hypothyroidism H/o amputation (4 toes on left foot) Plan: D/c to [facility] rehab today if accepted PO abx x 6 wks upon d/c Cont wound care PT/OT Comment Review of Relevant I have reviewed the following items billy (where applicable) has been applied. Labs Laboratory Tests Test 01/30/18 16:57 01/30/18 20:28 01/30/18 21:35 01/31/18 03:30 Glucose (Fingerstick) 220 mg/dL (70-99) 216 mg/dL (70-99) Vancomycin Level Trough 19.1 mcg/mL (10.0-20.0) Vancomycin Last Dose Date 01/30/18 Vancomycin Last Dose Time 0400 White Blood Count 11.5 x10^3/uL (4.0-11.0) Red Blood Count 3.56 x10^6/uL (4.30-5.70) Hemoglobin 11.2 g/dL (13.0-17.5) Hematocrit 32.0 % (39.0-53.0) Mean Corpuscular Volume 90 fL (79-100) Mean Corpuscular Hemoglobin 32 pg (25-35) Mean Corpuscular Hemoglobin Concent 35 g/dL (31-37) Red Cell Distribution Width 13.4 % (11.5-14.5) Platelet Count 226 x10^3/uL (140-400) Neutrophils (%) (Auto) 53 % (31-73) Lymphocytes (%) (Auto) 35 % (24-48) Monocytes (%) (Auto) 8 % (0-9) Eosinophils (%) (Auto) 4 % (0-3) Basophils (%) (Auto) 1 % (0-3) Neutrophils # (Auto) 6.0 x10^3uL (1.8-7.7) Lymphocytes # (Auto) 4.0 x10^3/uL (1.0-4.8) Monocytes # (Auto) 0.9 x10^3/uL (0.0-1.1) Eosinophils # (Auto) 0.5 x10^3/uL (0.0-0.7) Basophils # (Auto) 0.1 x10^3/uL (0.0-0.2) Sodium Level 145 mmol/L (136-145) Potassium Level 4.1 mmol/L (3.5-5.1) Chloride Level 106 mmol/L (98-107) Carbon Dioxide Level 28 mmol/L (21-32) Anion Gap 11 (6-14) Blood Urea Nitrogen 44 mg/dL (8-26) Creatinine 1.2 mg/dL (0.7-1.3) Estimated GFR (Cockcroft-Gault) 60.6 Glucose Level 186 mg/dL (70-99) Calcium Level 8.2 mg/dL (8.5-10.1) Test 01/31/18 07:45 01/31/18 11:04 01/31/18 16:30 01/31/18 20:30 Glucose (Fingerstick) 101 mg/dL (70-99) 147 mg/dL (70-99) 150 mg/dL (70-99) 179 mg/dL (70-99) Test 02/01/18 07:54 02/01/18 11:42 Glucose (Fingerstick) 110 mg/dL (70-99) 112 mg/dL (70-99) Laboratory Tests Test 01/31/18 16:30 01/31/18 20:30 02/01/18 07:54 02/01/18 11:42 Glucose (Fingerstick) 150 mg/dL (70-99) 179 mg/dL (70-99) 110 mg/dL (70-99) 112 mg/dL (70-99) Microbiology 01/23/18 Blood Culture - Final, Complete NO GROWTH AFTER 5 DAYS 01/23/18 Urine Culture - Final, Complete 01/23/18 Urine Culture Result 1 (ILDA) - Final, Complete 01/29/18 Anaerobic/Aerobic Culture, Resulted Pending 01/29/18 Anaerobic Culture Result 1 (ILDA), Resulted Pending 01/29/18 Aerobic Culture - Preliminary, Resulted 01/29/18 Aerobic Culture Result 1 (ILDA) - Preliminary, Resulted 01/29/18 Gram Stain - Final, Resulted 01/29/18 Gram Stain Result 1 (ILDA) - Final, Resulted 01/29/18 Gram Stain Result 2 (ILDA) - Final, Resulted Medications Current Medications Vancomycin HCl (Vanco Per Pharmacy) 1 each PRN DAILY PRN MC SEE COMMENTS Last administered on 01/31/18at 01:48; Start 01/23/18 at 17:15; Stop 01/31/18 at 11 :02; Status DC Meropenem 500 mg/ Sodium Chloride 50 ml @ 100 mls/hr Q8HRS IV Last administered on 02/01/18at 05:54; Start 01/23/18 at 22:00 Sodium Chloride 1,000 ml @ 75 mls/hr [id number] IV ; Start 01/23/18 at 17:15; Status Cancel Insulin Human Lispro (HumaLOG) 0-5 UNITS TIDWMEALS SQ Last administered on at 17:15; Start 01/23/18 at 17:30 Dextrose (Dextrose 50%-Water Syringe) 12.5 gm PRN Q15MIN PRN IV SEE COMMENTS; Start 01/23/18 at 17:15 Vancomycin HCl 1.75 gm/Sodium Chloride 500 ml @ 250 mls/hr 1X ONCE IV Last administered on 01/23/18at 17:58; Start 01/23/18 at 17:30; Stop 01/23/18 at 19 :29; Status DC Meropenem 500 mg/ Sodium Chloride 50 ml @ 100 mls/hr 1X ONCE IV Last administered on 01/23/18at 17:57; Start 01/23/18 at 17:30; Stop 01/23/18 at 17 :59; Status DC Acetaminophen (Tylenol) 650 mg PRN Q4HRS PO ; Start 01/23/18 at 17:15; Status UNV Amlodipine Besylate (Norvasc) 10 mg BID PO Last administered on 01/25/18at 09: 27; Start 01/23/18 at 21:00; Stop 01/25/18 at 16:22; Status DC Ascorbic Acid (Vitamin C) 500 mg DAILY PO Last administered on 02/01/18 09:32 ; Start 01/24/18 at 09:00 Aspirin (Ecotrin) 81 mg DAILY PO Last administered on 02/01/18 09:32; Start 01/24/18 at 09:00 Clopidogrel Bisulfate (Plavix) 75 mg DAILY PO Last administered on 02/01/18at 09 :32; Start 01/24/18 at 09:00 Glipizide (Glucotrol) 5 mg BIDAC PO Last administered on 02/01/18at 09:32; Start 01/24/18 at 07:30 Lisinopril (Prinivil) 40 mg BID PO Last administered on 01/25/18at 09:26; Start 01/23/18 at 21:00; Stop 01/25/18 at 16:23; Status DC Metoprolol Tartrate (Lopressor) 25 mg DAILY PO Last administered on 01/25/18at 09:28; Start 01/24/18 at 09:00; Stop 01/25/18 at 16:22; Status DC Hydrochlorothiazide (Microzide) 12.5 mg DAILY PO Last administered on at 09:32; Start 01/24/18 at 09:00 Levothyroxine Sodium (Synthroid) 25 mcg DAILY06 PO Last administered on at 05:58; Start 01/24/18 at 06:00 Metformin HCl (Glucophage) 500 mg BIDWMEALS PO Last administered on 02/01/18at 09:33; Start 01/23/18 at 18:00 Multivitamins/ Minerals (I-Erica) 1 tab DAILY PO Last administered on 02/01/18at 09:32; Start 01/24/18 at 09:00 Sodium Chloride (Normal Saline Flush 3ml) 3 ml QSHIFT PRN IV AFTER MEDS AND BLOOD DRAWS; Start 01/23/18 at 17:30 Sodium Chloride 1,000 ml @ 100 mls/hr Q10H IV Last administered on 01/25/18at 06:11; Start 01/23/18 at 18:00; Stop 01/25/18 at 17:43; Status DC Ondansetron HCl (Zofran) 4 mg PRN Q4HRS PRN IV NAUSEA/VOMITING; Start at 17:30 Acetaminophen (Tylenol) 650 mg PRN Q4HRS PRN PO TEMP OVER 100.4F OR MILD PAIN; Start 01/23/18 at 17:30 Al Hydroxide/Mg Hydroxide (Mylanta Plus Xs) 30 ml PRN DAILY PRN PO HEARTBURN / GAS; Start 01/23/18 at 17:30 Sodium Monofluorophosphate (Fleet Adult) 133 ml PRN DAILY PRN PA CONSTIPATION; Start 01/23/18 at 17:30 Docusate Sodium (Colace) 100 mg PRN BID PRN PO CONSTIPATION Last administered on 01/28/18at 08:50; Start 01/23/18 at 17:30 Albuterol Sulfate (Ventolin Neb Soln) 2.5 mg PRN Q4HRS PRN NEB SHORTNESS OF BREATH; Start 01/23/18 at 17:30 Guaifenesin (Robitussin) 200 mg PRN Q4HRS PRN PO COUGH Last administered on at 16:24; Start 01/23/18 at 17:30 Enoxaparin Sodium (Lovenox 40mg Syringe) 40 mg DAILY SQ ; Start 01/24/18 at 09: 00 Vancomycin HCl 1 gm/Dextrose 250 ml @ 250 mls/hr 1X ONCE IV ; Start 01/23/18 at 17:30; Stop 01/23/18 at 18:29; Status UNV Vancomycin HCl (Vanco Per Pharmacy) 1 each PRN DAILY PRN MC SEE COMMENTS; Start 01/23/18 at 17:30; Status UNV Acetaminophen/ Hydrocodone Bitart (Lortab 5/325) 1 tab PRN Q6HRS PRN PO MOD TO SEVERE PAIN; Start 01/23/18 at 18:30 Vancomycin HCl 1.25 gm/Sodium Chloride 250 ml @ 250 mls/hr Q18H IV Last administered on 01/25/18at 07:25; Start 01/24/18 at 12:00; Stop 01/25/18 at 09 :00; Status DC Vancomycin HCl (Vancomycin Trough Level) 1 each 1X ONCE MC Last administered on 01/25/18at 06:30; Start 01/25/18 at 05:30; Stop 01/25/18 at 05:31; Status DC Lactobacillus Rhamnosus (Culturelle) 1 cap BID PO Last administered on at 09:32; Start 01/24/18 at 21:00 Vancomycin HCl 1.25 gm/Sodium Chloride 250 ml @ 250 mls/hr Q12H IV Last administered on 01/26/18at 19:59; Start 01/25/18 at 20:00; Stop 01/27/18 at 08 :54; Status DC Amlodipine Besylate (Norvasc) 10 mg DAILY PO Last administered on 02/01/18at 09: 35; Start 01/26/18 at 09:00 Lisinopril (Prinivil) 40 mg DAILY PO Last administered on 01/28/18at 08:55; Start 01/26/18 at 09:00; Stop 01/28/18 at 13:54; Status DC Vancomycin HCl (Vancomycin Trough Level) 1 each 1X ONCE MC ; Start 01/27/18 at 07:30; Stop 01/27/18 at 07:31; Status DC Ondansetron HCl (Zofran) 4 mg PRN Q6HRS PRN IV NAUSEA/VOMITING; Start at 07:00; Stop 01/30/18 at 06:59; Status DC Fentanyl Citrate (Fentanyl 2ml Vial) 25 mcg PRN Q5MIN PRN IV MILD PAIN; Start 01/29/18 at 07:00; Stop 01/30/18 at 06:59; Status DC Fentanyl Citrate (Fentanyl 2ml Vial) 50 mcg PRN Q5MIN PRN IV MODERATE TO SEVERE PAIN Last administered on 01/29/18at 14:24; Start 01/29/18 at 07:00; Stop 01/30/18 at 06:59; Status DC Morphine Sulfate (Morphine Sulfate) 1 mg PRN Q10MIN PRN IV SEVERE PAIN; Start 01/29/18 at 07:00; Stop 01/30/18 at 06:59; Status DC Ringer's Solution 1,000 ml @ 30 mls/hr Q24H IV ; Start 01/29/18 at 07:00; Stop 01/29/18 at 18:59; Status DC Lidocaine HCl (Xylocaine-Mpf 1% 2ml Vial) 2 ml PRN 1X PRN ID PRIOR TO IV START ; Start 01/29/18 at 07:00; Stop 01/30/18 at 06:59; Status DC Hydromorphone HCl (Dilaudid) 0.5 mg PRN Q10MIN PRN IV SEV PAIN, Second choice; Start 01/29/18 at 07:00; Stop 01/30/18 at 06:59; Status DC Prochlorperazine Edisylate (Compazine) 5 mg PACU PRN PRN IV NAUSEA, MRX1; Start 01/29/18 at 07:00; Stop 01/30/18 at 06:59; Status DC Vancomycin HCl (Vancomycin Random Level) 1 each 1X ONCE MC Last administered on 01/27/18at 19:00; Start 01/27/18 at 19:00; Stop 01/27/18 at 19:01; Status DC Benzonatate (Tessalon Perle) 100 mg [id number] PO Last administered on 02/01/18at 09 :32; Start 01/27/18 at 14:00 Vancomycin HCl 1.25 gm/Sodium Chloride 250 ml @ 166.667 mls/hr Q18H IV Last administered on 01/30/18at 22:00; Start 01/27/18 at 22:00; Stop 01/31/18 at 11 :02; Status DC Promethazine HCl/ Codeine (Phenergan With Codeine Oral Syrup) 5 ml PRN Q4HRS PRN PO COUGH 2ND CHOICE Last administered on 01/29/18at 19:09; Start 01/28/18 at 14:00 Propofol 20 ml @ As Directed STK-MED ONCE IV ; Start 01/29/18 at 12:42; Stop 01/29/18 at 12:43; Status DC Dexamethasone Sodium Phosphate (Decadron) 20 mg STK-MED ONCE .ROUTE ; Start at 12:42; Stop 01/29/18 at 12:43; Status DC Famotidine (Pepcid Vial) 20 mg STK-MED ONCE .ROUTE ; Start 01/29/18 at 12:42; Stop 01/29/18 at 12:43; Status DC Lidocaine HCl (Lidocaine Pf 2% Vial) 5 ml STK-MED ONCE .ROUTE ; Start 01/29/18 at 12:42; Stop 01/29/18 at 12:43; Status DC Ondansetron HCl (Zofran) 4 mg STK-MED ONCE .ROUTE ; Start 01/29/18 at 12:42; Stop 01/29/18 at 12:43; Status DC Fentanyl Citrate (Fentanyl 2ml Vial) 100 mcg STK-MED ONCE .ROUTE ; Start at 12:42; Stop 01/29/18 at 12:43; Status DC Midazolam HCl (Versed) 2 mg STK-MED ONCE .ROUTE ; Start 01/29/18 at 12:42; Stop 01/29/18 at 12:43; Status DC Cefazolin Sodium 1 gm/Sodium Chloride 250 ml @ 250 mls/hr 1X ONCE IV ; Start 01/29/18 at 13:00; Stop 01/29/18 at 13:59; Status DC Famotidine (Pepcid Vial) 20 mg STK-MED ONCE .ROUTE ; Start 01/29/18 at 13:07; Stop 01/29/18 at 13:08; Status DC Ephedrine Sulfate (ePHEDrine PF IN SALINE SYRINGE) 50 mg STK-MED ONCE IV ; Start 01/29/18 at 13:42; Stop 01/29/18 at 13:43; Status DC Fentanyl Citrate (Fentanyl 2ml Vial) 100 mcg STK-MED ONCE .ROUTE ; Start at 14:21; Stop 01/29/18 at 14:22; Status DC Insulin Human Lispro (HumaLOG) 20 units 1X ONCE SQ Last administered on at 22:38; Start 01/29/18 at 23:00; Stop 01/29/18 at 23:01; Status DC Vancomycin HCl (Vancomycin Trough Level) 1 each 1X ONCE MC Last administered on 01/30/18at 21:30; Start 01/30/18 at 21:30; Stop 01/30/18 at 21:31; Status DC Lidocaine/Sodium Bicarbonate (Buffered Lidocaine 1%) 6 ml 1X ONCE INJ Last administered on 01/31/18at 13:45; Start 01/31/18 at 13:30; Stop 01/31/18 at 13 :31; Status DC Lidocaine/Sodium Bicarbonate (Buffered Lidocaine 1%) 3 ml STK-MED ONCE .ROUTE ; Start 01/31/18 at 13:11; Stop 02/01/18 at 11:15; Status DC Active Scripts Active Reported Remedy Phytoplex Antifungal (Miconazole Nitrate) 85 Gm Powder 1 Alia TP DAILY Loratadine 10 Mg Tablet 10 Mg PO DAILY Ascorbic Acid 500 Mg Tablet 500 Mg PO BID Hydrochlorothiazide Capsule (Hydrochlorothiazide) 12.5 Mg Capsule 12.5 Mg PO DAILY Glipizide 5 Mg Tablet 1 Tab PO BIDWMEALS Clopidogrel (Clopidogrel Bisulfate) 75 Mg Tablet 75 Mg PO DAILY Tylenol (Acetaminophen) 325 Mg Tablet 325 Mg PO PRN Q4HRS Metformin Hcl 500 Mg Tablet 500 Mg PO BIDWMEALS Lisinopril 20 Mg Tablet 40 Tab PO DAILY Levothyroxine Sodium 25 Mcg Tablet 25 Mcg PO DAILY Aspir 81 (Aspirin) 81 Mg Tablet.dr 81 Mg PO DAILY Amlodipine Besylate 5 Mg Tablet 10 Mg PO DAILY Vitals/I & O Vital Sign - Last 24 Hours 01/31/18 01/31/18 01/31/18 01/31/18 15:00 19:00 20:00 23:00 Temp 98.1 98.1 98.8 98.1 98.1 98.8 Pulse 120 89 86 Resp 16 16 16 B/P (MAP) 110/54 (72) 118/96 (103) 115/81 (92) Pulse Ox 98 98 98 O2 Delivery Room Air Room Air Room Air Room Air 02/01/18 02/01/18 02/01/18 02/01/18 03:00 07:00 09:35 11:02 Temp 98.6 97.6 98.5 98.6 97.6 98.5 Pulse 96 81 81 81 Resp 16 16 16 B/P (MAP) 116/86 (96) 153/77 (102) 153/77 148/72 (97) Pulse Ox 98 96 100 O2 Delivery Room Air Room Air Room Air Intake and Output 01/31/18 01/31/18 02/01/18 15:00 23:00 07:00 Intake Total 300 ml Output Total 250 ml Balance 50 ml ERIKA REEVES III DO Feb 01, 2018 12:57
--- NOTE | 2018-02-01 13:07 | DISCH ---
DISCHARGE DISCHARGE INFORMATION: DISCHARGE DATE: Jan 31, 2018 CONDITION ON DISCHARGE: Stable CODE STATUS: Code Status: Full POST DISCHARGE ORDERS: ACTIVITY ORDERS: Activity as tolerated WEIGHT BEARING STATUS: As tolerated DIET AFTER DISCHARGE: ADA WOUND/INCISION CARE: Other, see below (wound care osteomyelitis left foot) CHECKS AFTER DISCHARGE: CHECKS AFTER DISCHARGE: Check blood press - daily, Check blood sugar, ac/hs TREATMENT/EQUIPMENT ORDERS: ADAPTIVE EQUIPMENT NEEDED: None Physical Therapy For: Evalulation/Treatment Occupational Therapy For: Evaluation/Treatment DISCHARGE MEDICATIONS: Home Meds Reported Medications Miconazole Nitrate (Remedy Phytoplex Antifungal) 85 Gm Powder, 1 MARIE TP DAILY, MISC 01/25/18 Loratadine (LORATADINE) 10 Mg Tablet, 10 MG PO DAILY, TAB 01/25/18 Ascorbic Acid (ASCORBIC ACID) 500 Mg Tablet, 500 MG PO BID, TAB 01/23/18 Hydrochlorothiazide (HYDROCHLOROTHIAZIDE CAPSULE ) 12.5 Mg Capsule, 12.5 MG PO DAILY, #30 CAP 5 Refills 01/23/18 Glipizide (GLIPIZIDE) 5 Mg Tablet, 1 TAB PO BIDWMEALS, #60 TAB 3 Refills 01/23/18 Clopidogrel Bisulfate (CLOPIDOGREL) 75 Mg Tablet, 75 MG PO DAILY, #90 TAB 1 Refill 01/23/18 Acetaminophen (TYLENOL) 325 Mg Tablet, 325 MG PO PRN Q4HRS, #30 TAB 01/23/18 Metformin Hcl (METFORMIN HCL) 500 Mg Tablet, 500 MG PO BIDWMEALS, #60 TAB 3 Refills 06/17/15 Lisinopril (LISINOPRIL) 20 Mg Tablet, 40 TAB PO DAILY, #30 TAB 5 Refills 06/17/15 Levothyroxine Sodium (LEVOTHYROXINE SODIUM) 25 Mcg Tablet, 25 MCG PO DAILY, #30 TAB 5 Refills 06/17/15 Aspirin (ASPIR 81) 81 Mg Tablet.dr, 81 MG PO DAILY, #30 TAB 5 Refills 06/17/15 Amlodipine Besylate (AMLODIPINE BESYLATE) 5 Mg Tablet, 10 MG PO DAILY, TAB 06/17/15 Discontinued Reported Medications Metoprolol Tartrate (METOPROLOL TARTRATE) 25 Mg Tablet, 1 TAB PO DAILY, #180 TAB 1 Refill 01/23/18 Multivitamin (MULTI-VITAMIN DAILY) 1 Each Tablet, 1 EACH PO, TAB 01/23/18 ERIKA REEVES III DO Feb 01, 2018 13:07
[2018-02-01 15:00] VITALS: BP 142/67
[2018-02-01 19:15] VITALS: BP 144/79
[2018-02-01] MEDS: MEROPENEM 1 GM in IV NORMAL SALINE 100ML 100 ML IV SCH (21:17)
[2018-02-01 23:15] VITALS: BP 140/55
[2018-02-02 03:37] VITALS: BP 119/77
[2018-02-02] MEDS: LEVOTHYROXINE 25 MCG TABLET. PO SCH (06:05)
[2018-02-02] MEDS: glipiZIDE 5 MG TABLET PO SCH ×2 (06:05→16:40)
[2018-02-02 06:26] LABS: BASO # 0.2 x10^3/uL (0.0-0.2); BASO % 1 % (0-3); EOS # 1.2 x10^3/uL (0.0-0.7); EOS % 11 % (0-3); HEMATOCRIT 34.8 % (39.0-53.0); HEMOGLOBIN 12.4 g/dL (13.0-17.5); LYMPH # 3.8 x10^3/uL (1.0-4.8); LYMPH % 34 % (24-48); MEAN CORPUSCULAR HEMOGLOBIN 32 pg (25-35); MEAN CORPUSCULAR HGB CONC 36 g/dL (31-37); MEAN CORPUSCULAR VOLUME 90 fL (79-100); MONO # 1.1 x10^3/uL (0.0-1.1); MONO % 10 % (0-9); NEUT % 44 % (31-73); PLATELET COUNT 234 x10^3/uL (140-400); RED BLOOD COUNT 3.87 x10^6/uL (4.30-5.70); RED CELL DISTRIBUTION WIDTH 13.7 % (11.5-14.5); WHITE BLOOD COUNT 11.3 x10^3/uL (4.0-11.0)
[2018-02-02 06:46] LABS: CALCIUM 8.4 mg/dL (8.5-10.1); CREATININE 1.1 mg/dL (0.7-1.3); POTASSIUM 4.5 mmol/L (3.5-5.1)
[2018-02-02 07:00] VITALS: BP 129/73
[2018-02-02] MEDS: ENOXAPARIN 40 MG/0.4 ML SYRINGE. SQ SCH (07:35)
--- NOTE | 2018-02-02 07:48 | PDOC ---
Provider Note Provider Note Vascular S: pt without complaints. O: afebrile, vss wound vac in place left forefoot, skin edges clean mild erythema A: status post left 3rd metarsal head and distal metarsal resection. Pt doing well P: cont. f/u at [facility] post discharge cont. antibx per I.D. will sign off. MERLYN CHING SYSTEMS SPECIALIST Feb 02, 2018 07:48
[2018-02-02 09:57] LABS: % ATYL 1 % (0-0); % EOS 13 % (0-5); % LYMPHS 34 % (24-48); % MONOS 9 % (0-10); % SEGS 43 % (35-66); PLT ESTIMATE ADEQUATE (ADEQUATE)
[2018-02-02] MEDS: MULTIVITAMIN I-VITE TABLET. PO SCH (10:12)
[2018-02-02] MEDS: LACTOBACILLUS RHAMNOSUS GG 1 CAPSULE. PO SCH ×2 (10:12→19:41)
[2018-02-02] MEDS: ASPIRIN ENTERIC COATED 81 MG TABLET.DR. PO SCH (10:12)
[2018-02-02] MEDS: hydroCHLOROthiazide 12.5 MG CAPSULE PO SCH (10:12)
[2018-02-02] MEDS: amLODIPine BESYLATE 10 MG TABLET PO SCH (10:13)
[2018-02-02] MEDS: ASCORBIC ACID 500 MG TABLET PO SCH (10:13)
[2018-02-02] MEDS: metFORMIN 500 MG TABLET PO SCH ×2 (10:13→16:40)
[2018-02-02] MEDS: CLOPIDOGREL BISULFATE 75 MG TABLET PO SCH (10:13)
[2018-02-02] MEDS: BENZONATATE 100 MG CAPSULE. PO SCH ×3 (10:13→19:40)
[2018-02-02] MEDS: INSULIN LISPRO 300 UNITS/3 ML INSULN.PEN. SQ SCH ×3 (10:14→16:41)
[2018-02-02] MEDS: MEROPENEM 1 GM in IV NORMAL SALINE 100ML 100 ML IV SCH ×2 (10:14→20:17)
[2018-02-02 11:00] VITALS: BP 123/75
--- NOTE | 2018-02-02 12:01 | PDOC ---
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) History of Present Illness History of Present Illness Pt seen and examined while sitting on the side of bed. Pt continues to be very pleasant to talk with. Discussed w/RN Vitals Vitals Vital Signs Date Time Temp Pulse Resp B/P (MAP) Pulse Ox O2 Delivery O2 Flow Rate FiO2 02/02/18 11:00 97.4 82 16 123/75 (91) 99 Room Air 97.4 Physical Exam Physical Exam HEENT: Mucus membranes moist Neck: Supple, No JVD General: Alert, Cooperative, No acute distress, Other Heart: Regular rate, Normal S1, Normal S2, No murmurs Lungs: Clear Abdomen: Soft, No tenderness Extremities: Other (Left foot bandages clean, dry and intact) Skin: No rashes Labs LABS Laboratory Tests Test 02/01/18 16:45 02/01/18 20:47 02/02/18 06:00 02/02/18 07:41 Glucose (Fingerstick) 154 mg/dL (70-99) 191 mg/dL (70-99) 140 mg/dL (70-99) White Blood Count 11.3 x10^3/uL (4.0-11.0) Red Blood Count 3.87 x10^6/uL (4.30-5.70) Hemoglobin 12.4 g/dL (13.0-17.5) Hematocrit 34.8 % (39.0-53.0) Mean Corpuscular Volume 90 fL (79-100) Mean Corpuscular Hemoglobin 32 pg (25-35) Mean Corpuscular Hemoglobin Concent 36 g/dL (31-37) Red Cell Distribution Width 13.7 % (11.5-14.5) Platelet Count 234 x10^3/uL (140-400) Neutrophils (%) (Auto) 44 % (31-73) Lymphocytes (%) (Auto) 34 % (24-48) Monocytes (%) (Auto) 10 % (0-9) Eosinophils (%) (Auto) 11 % (0-3) Basophils (%) (Auto) 1 % (0-3) Neutrophils # (Auto) 5.0 x10^3uL (1.8-7.7) Lymphocytes # (Auto) 3.8 x10^3/uL (1.0-4.8) Monocytes # (Auto) 1.1 x10^3/uL (0.0-1.1) Eosinophils # (Auto) 1.2 x10^3/uL (0.0-0.7) Basophils # (Auto) 0.2 x10^3/uL (0.0-0.2) Segmented Neutrophils % 43 % (35-66) Lymphocytes % 34 % (24-48) Atypical Lymphocytes % (Manual) 1 % (0-0) Monocytes % 9 % (0-10) Eosinophils % 13 % (0-5) Platelet Estimate Adequate (ADEQUATE) Sodium Level 144 mmol/L (136-145) Potassium Level 4.5 mmol/L (3.5-5.1) Chloride Level 106 mmol/L (98-107) Carbon Dioxide Level 30 mmol/L (21-32) Anion Gap 8 (6-14) Blood Urea Nitrogen 44 mg/dL (8-26) Creatinine 1.1 mg/dL (0.7-1.3) Estimated GFR (Cockcroft-Gault) 67.0 Glucose Level 141 mg/dL (70-99) Calcium Level 8.4 mg/dL (8.5-10.1) Test 02/02/18 10:45 Glucose (Fingerstick) 223 mg/dL (70-99) Review of Systems Review of Systems Pt denies ALCALA, CP, and SOA. He continues to have a mild cough. Assessment and Plan Assessmemt and Plan Assessment: Left diabetic foot cellulitis/osteomyelitis s/p 3rd toe metatarsal resection Hyperglycemia H/o DM H/o PAD H/o MRSA H/o cognitive disability H/o HTN H/o hypothyroidism H/o amputation (4 toes on left foot) Plan: Discharge disposition pending: Pt was denied at [facility] because of need for 6 wk IV Abx PO abx x 6 wks Cont wound care PT/OT Monitor labs Comment Review of Relevant I have reviewed the following items billy (where applicable) has been applied. Labs Laboratory Tests Test 01/31/18 16:30 01/31/18 20:30 02/01/18 07:54 02/01/18 11:42 Glucose (Fingerstick) 150 mg/dL (70-99) 179 mg/dL (70-99) 110 mg/dL (70-99) 112 mg/dL (70-99) Test 02/01/18 16:45 02/01/18 20:47 02/02/18 06:00 02/02/18 07:41 Glucose (Fingerstick) 154 mg/dL (70-99) 191 mg/dL (70-99) 140 mg/dL (70-99) White Blood Count 11.3 x10^3/uL (4.0-11.0) Red Blood Count 3.87 x10^6/uL (4.30-5.70) Hemoglobin 12.4 g/dL (13.0-17.5) Hematocrit 34.8 % (39.0-53.0) Mean Corpuscular Volume 90 fL (79-100) Mean Corpuscular Hemoglobin 32 pg (25-35) Mean Corpuscular Hemoglobin Concent 36 g/dL (31-37) Red Cell Distribution Width 13.7 % (11.5-14.5) Platelet Count 234 x10^3/uL (140-400) Neutrophils (%) (Auto) 44 % (31-73) Lymphocytes (%) (Auto) 34 % (24-48) Monocytes (%) (Auto) 10 % (0-9) Eosinophils (%) (Auto) 11 % (0-3) Basophils (%) (Auto) 1 % (0-3) Neutrophils # (Auto) 5.0 x10^3uL (1.8-7.7) Lymphocytes # (Auto) 3.8 x10^3/uL (1.0-4.8) Monocytes # (Auto) 1.1 x10^3/uL (0.0-1.1) Eosinophils # (Auto) 1.2 x10^3/uL (0.0-0.7) Basophils # (Auto) 0.2 x10^3/uL (0.0-0.2) Segmented Neutrophils % 43 % (35-66) Lymphocytes % 34 % (24-48) Atypical Lymphocytes % (Manual) 1 % (0-0) Monocytes % 9 % (0-10) Eosinophils % 13 % (0-5) Platelet Estimate Adequate (ADEQUATE) Sodium Level 144 mmol/L (136-145) Potassium Level 4.5 mmol/L (3.5-5.1) Chloride Level 106 mmol/L (98-107) Carbon Dioxide Level 30 mmol/L (21-32) Anion Gap 8 (6-14) Blood Urea Nitrogen 44 mg/dL (8-26) Creatinine 1.1 mg/dL (0.7-1.3) Estimated GFR (Cockcroft-Gault) 67.0 Glucose Level 141 mg/dL (70-99) Calcium Level 8.4 mg/dL (8.5-10.1) Test 02/02/18 10:45 Glucose (Fingerstick) 223 mg/dL (70-99) Laboratory Tests Test 02/01/18 16:45 02/01/18 20:47 02/02/18 06:00 02/02/18 07:41 Glucose (Fingerstick) 154 mg/dL (70-99) 191 mg/dL (70-99) 140 mg/dL (70-99) White Blood Count 11.3 x10^3/uL (4.0-11.0) Red Blood Count 3.87 x10^6/uL (4.30-5.70) Hemoglobin 12.4 g/dL (13.0-17.5) Hematocrit 34.8 % (39.0-53.0) Mean Corpuscular Volume 90 fL (79-100) Mean Corpuscular Hemoglobin 32 pg (25-35) Mean Corpuscular Hemoglobin Concent 36 g/dL (31-37) Red Cell Distribution Width 13.7 % (11.5-14.5) Platelet Count 234 x10^3/uL (140-400) Neutrophils (%) (Auto) 44 % (31-73) Lymphocytes (%) (Auto) 34 % (24-48) Monocytes (%) (Auto) 10 % (0-9) Eosinophils (%) (Auto) 11 % (0-3) Basophils (%) (Auto) 1 % (0-3) Neutrophils # (Auto) 5.0 x10^3uL (1.8-7.7) Lymphocytes # (Auto) 3.8 x10^3/uL (1.0-4.8) Monocytes # (Auto) 1.1 x10^3/uL (0.0-1.1) Eosinophils # (Auto) 1.2 x10^3/uL (0.0-0.7) Basophils # (Auto) 0.2 x10^3/uL (0.0-0.2) Segmented Neutrophils % 43 % (35-66) Lymphocytes % 34 % (24-48) Atypical Lymphocytes % (Manual) 1 % (0-0) Monocytes % 9 % (0-10) Eosinophils % 13 % (0-5) Platelet Estimate Adequate (ADEQUATE) Sodium Level 144 mmol/L (136-145) Potassium Level 4.5 mmol/L (3.5-5.1) Chloride Level 106 mmol/L (98-107) Carbon Dioxide Level 30 mmol/L (21-32) Anion Gap 8 (6-14) Blood Urea Nitrogen 44 mg/dL (8-26) Creatinine 1.1 mg/dL (0.7-1.3) Estimated GFR (Cockcroft-Gault) 67.0 Glucose Level 141 mg/dL (70-99) Calcium Level 8.4 mg/dL (8.5-10.1) Test 02/02/18 10:45 Glucose (Fingerstick) 223 mg/dL (70-99) Microbiology 01/23/18 Blood Culture - Final, Complete NO GROWTH AFTER 5 DAYS 01/23/18 Urine Culture - Final, Complete 01/23/18 Urine Culture Result 1 (ILDA) - Final, Complete 01/29/18 Anaerobic/Aerobic Culture - Preliminary, Resulted 01/29/18 Anaerobic Culture Result 1 (ILDA) - Preliminary, Resulted 01/29/18 Aerobic Culture - Final, Resulted 01/29/18 Aerobic Culture Result 1 (ILDA) - Final, Resulted 01/29/18 Gram Stain - Final, Resulted 01/29/18 Gram Stain Result 1 (ILDA) - Final, Resulted 01/29/18 Gram Stain Result 2 (ILDA) - Final, Resulted Medications Current Medications Vancomycin HCl (Vanco Per Pharmacy) 1 each PRN DAILY PRN MC SEE COMMENTS Last administered on 01/31/18at 01:48; Start 01/23/18 at 17:15; Stop 01/31/18 at 11 :02; Status DC Meropenem 500 mg/ Sodium Chloride 50 ml @ 100 mls/hr Q8HRS IV Last administered on 02/01/18at 05:54; Start 01/23/18 at 22:00; Stop 02/01/18 at 13: 56; Status DC Sodium Chloride 1,000 ml @ 75 mls/hr [id number] IV ; Start 01/23/18 at 17:15; Status Cancel Insulin Human Lispro (HumaLOG) 0-5 UNITS TIDWMEALS SQ Last administered on 02/01at 16:58; Start 01/23/18 at 17:30 Dextrose (Dextrose 50%-Water Syringe) 12.5 gm PRN Q15MIN PRN IV SEE COMMENTS; Start 01/23/18 at 17:15 Vancomycin HCl 1.75 gm/Sodium Chloride 500 ml @ 250 mls/hr 1X ONCE IV Last administered on 01/23/18at 17:58; Start 01/23/18 at 17:30; Stop 01/23/18 at 19 :29; Status DC Meropenem 500 mg/ Sodium Chloride 50 ml @ 100 mls/hr 1X ONCE IV Last administered on 01/23/18at 17:57; Start 01/23/18 at 17:30; Stop 01/23/18 at 17 :59; Status DC Acetaminophen (Tylenol) 650 mg PRN Q4HRS PO ; Start 01/23/18 at 17:15; Status UNV Amlodipine Besylate (Norvasc) 10 mg BID PO Last administered on 01/25/18at 09: 27; Start 01/23/18 at 21:00; Stop 01/25/18 at 16:22; Status DC Ascorbic Acid (Vitamin C) 500 mg DAILY PO Last administered on 02/02/18at 10:13 ; Start 01/24/18 at 09:00 Aspirin (Ecotrin) 81 mg DAILY PO Last administered on 02/02/18at 10:12; Start 01/24/18 at 09:00 Clopidogrel Bisulfate (Plavix) 75 mg DAILY PO Last administered on 02/02/18at 10 :13; Start 01/24/18 at 09:00 Glipizide (Glucotrol) 5 mg BIDAC PO Last administered on 02/02/18at 06:05; Start 01/24/18 at 07:30 Lisinopril (Prinivil) 40 mg BID PO Last administered on 01/25/18at 09:26; Start 01/23/18 at 21:00; Stop 01/25/18 at 16:23; Status DC Metoprolol Tartrate (Lopressor) 25 mg DAILY PO Last administered on 01/25/18at 09:28; Start 01/24/18 at 09:00; Stop 01/25/18 at 16:22; Status DC Hydrochlorothiazide (Microzide) 12.5 mg DAILY PO Last administered on at 10:12; Start 01/24/18 at 09:00 Levothyroxine Sodium (Synthroid) 25 mcg DAILY06 PO Last administered on at 06:05; Start 01/24/18 at 06:00 Metformin HCl (Glucophage) 500 mg BIDWMEALS PO Last administered on 02/02/18at 10:13; Start 01/23/18 at 18:00 Multivitamins/ Minerals (I-Erica) 1 tab DAILY PO Last administered on 02/02/18at 10:12; Start 01/24/18 at 09:00 Sodium Chloride (Normal Saline Flush 3ml) 3 ml QSHIFT PRN IV AFTER MEDS AND BLOOD DRAWS; Start 01/23/18 at 17:30 Sodium Chloride 1,000 ml @ 100 mls/hr Q10H IV Last administered on 01/25/18at 06:11; Start 01/23/18 at 18:00; Stop 01/25/18 at 17:43; Status DC Ondansetron HCl (Zofran) 4 mg PRN Q4HRS PRN IV NAUSEA/VOMITING; Start at 17:30 Acetaminophen (Tylenol) 650 mg PRN Q4HRS PRN PO TEMP OVER 100.4F OR MILD PAIN; Start 01/23/18 at 17:30 Al Hydroxide/Mg Hydroxide (Mylanta Plus Xs) 30 ml PRN DAILY PRN PO HEARTBURN / GAS; Start 01/23/18 at 17:30 Sodium Monofluorophosphate (Fleet Adult) 133 ml PRN DAILY PRN SC CONSTIPATION; Start 01/23/18 at 17:30 Docusate Sodium (Colace) 100 mg PRN BID PRN PO CONSTIPATION Last administered on 01/28/18at 08:50; Start 01/23/18 at 17:30 Albuterol Sulfate (Ventolin Neb Soln) 2.5 mg PRN Q4HRS PRN NEB SHORTNESS OF BREATH; Start 01/23/18 at 17:30 Guaifenesin (Robitussin) 200 mg PRN Q4HRS PRN PO COUGH Last administered on at 16:24; Start 01/23/18 at 17:30 Enoxaparin Sodium (Lovenox 40mg Syringe) 40 mg DAILY SQ ; Start 01/24/18 at 09: 00 Vancomycin HCl 1 gm/Dextrose 250 ml @ 250 mls/hr 1X ONCE IV ; Start 01/23/18 at 17:30; Stop 01/23/18 at 18:29; Status UNV Vancomycin HCl (Vanco Per Pharmacy) 1 each PRN DAILY PRN MC SEE COMMENTS; Start 01/23/18 at 17:30; Status UNV Acetaminophen/ Hydrocodone Bitart (Lortab 5/325) 1 tab PRN Q6HRS PRN PO MOD TO SEVERE PAIN; Start 01/23/18 at 18:30 Vancomycin HCl 1.25 gm/Sodium Chloride 250 ml @ 250 mls/hr Q18H IV Last administered on 01/25/18at 07:25; Start 01/24/18 at 12:00; Stop 01/25/18 at 09 :00; Status DC Vancomycin HCl (Vancomycin Trough Level) 1 each 1X ONCE MC Last administered on 01/25/18at 06:30; Start 01/25/18 at 05:30; Stop 01/25/18 at 05:31; Status DC Lactobacillus Rhamnosus (Culturelle) 1 cap BID PO Last administered on at 10:12; Start 01/24/18 at 21:00 Vancomycin HCl 1.25 gm/Sodium Chloride 250 ml @ 250 mls/hr Q12H IV Last administered on 01/26/18at 19:59; Start 01/25/18 at 20:00; Stop 01/27/18 at 08 :54; Status DC Amlodipine Besylate (Norvasc) 10 mg DAILY PO Last administered on 02/02/18at 10: 13; Start 01/26/18 at 09:00 Lisinopril (Prinivil) 40 mg DAILY PO Last administered on 01/28/18at 08:55; Start 01/26/18 at 09:00; Stop 01/28/18 at 13:54; Status DC Vancomycin HCl (Vancomycin Trough Level) 1 each 1X ONCE MC ; Start 01/27/18 at 07:30; Stop 01/27/18 at 07:31; Status DC Ondansetron HCl (Zofran) 4 mg PRN Q6HRS PRN IV NAUSEA/VOMITING; Start at 07:00; Stop 01/30/18 at 06:59; Status DC Fentanyl Citrate (Fentanyl 2ml Vial) 25 mcg PRN Q5MIN PRN IV MILD PAIN; Start 01/29/18 at 07:00; Stop 01/30/18 at 06:59; Status DC Fentanyl Citrate (Fentanyl 2ml Vial) 50 mcg PRN Q5MIN PRN IV MODERATE TO SEVERE PAIN Last administered on 01/29/18at 14:24; Start 01/29/18 at 07:00; Stop 01/30/18 at 06:59; Status DC Morphine Sulfate (Morphine Sulfate) 1 mg PRN Q10MIN PRN IV SEVERE PAIN; Start 01/29/18 at 07:00; Stop 01/30/18 at 06:59; Status DC Ringer's Solution 1,000 ml @ 30 mls/hr Q24H IV ; Start 01/29/18 at 07:00; Stop 01/29/18 at 18:59; Status DC Lidocaine HCl (Xylocaine-Mpf 1% 2ml Vial) 2 ml PRN 1X PRN ID PRIOR TO IV START ; Start 01/29/18 at 07:00; Stop 01/30/18 at 06:59; Status DC Hydromorphone HCl (Dilaudid) 0.5 mg PRN Q10MIN PRN IV SEV PAIN, Second choice; Start 01/29/18 at 07:00; Stop 01/30/18 at 06:59; Status DC Prochlorperazine Edisylate (Compazine) 5 mg PACU PRN PRN IV NAUSEA, MRX1; Start 01/29/18 at 07:00; Stop 01/30/18 at 06:59; Status DC Vancomycin HCl (Vancomycin Random Level) 1 each 1X ONCE MC Last administered on 01/27/18at 19:00; Start 01/27/18 at 19:00; Stop 01/27/18 at 19:01; Status DC Benzonatate (Tessalon Perle) 100 mg [id number] PO Last administered on 02/02/18at 10 :13; Start 01/27/18 at 14:00 Vancomycin HCl 1.25 gm/Sodium Chloride 250 ml @ 166.667 mls/hr Q18H IV Last administered on 01/30/18at 22:00; Start 01/27/18 at 22:00; Stop 01/31/18 at 11 :02; Status DC Promethazine HCl/ Codeine (Phenergan With Codeine Oral Syrup) 5 ml PRN Q4HRS PRN PO COUGH 2ND CHOICE Last administered on 01/29/18at 19:09; Start 01/28/18 at 14:00 Propofol 20 ml @ As Directed STK-MED ONCE IV ; Start 01/29/18 at 12:42; Stop 01/29/18 at 12:43; Status DC Dexamethasone Sodium Phosphate (Decadron) 20 mg STK-MED ONCE .ROUTE ; Start at 12:42; Stop 01/29/18 at 12:43; Status DC Famotidine (Pepcid Vial) 20 mg STK-MED ONCE .ROUTE ; Start 01/29/18 at 12:42; Stop 01/29/18 at 12:43; Status DC Lidocaine HCl (Lidocaine Pf 2% Vial) 5 ml STK-MED ONCE .ROUTE ; Start 01/29/18 at 12:42; Stop 01/29/18 at 12:43; Status DC Ondansetron HCl (Zofran) 4 mg STK-MED ONCE .ROUTE ; Start 01/29/18 at 12:42; Stop 01/29/18 at 12:43; Status DC Fentanyl Citrate (Fentanyl 2ml Vial) 100 mcg STK-MED ONCE .ROUTE ; Start at 12:42; Stop 01/29/18 at 12:43; Status DC Midazolam HCl (Versed) 2 mg STK-MED ONCE .ROUTE ; Start 01/29/18 at 12:42; Stop 01/29/18 at 12:43; Status DC Cefazolin Sodium 1 gm/Sodium Chloride 250 ml @ 250 mls/hr 1X ONCE IV ; Start 01/29/18 at 13:00; Stop 01/29/18 at 13:59; Status DC Famotidine (Pepcid Vial) 20 mg STK-MED ONCE .ROUTE ; Start 01/29/18 at 13:07; Stop 01/29/18 at 13:08; Status DC Ephedrine Sulfate (ePHEDrine PF IN SALINE SYRINGE) 50 mg STK-MED ONCE IV ; Start 01/29/18 at 13:42; Stop 01/29/18 at 13:43; Status DC Fentanyl Citrate (Fentanyl 2ml Vial) 100 mcg STK-MED ONCE .ROUTE ; Start at 14:21; Stop 01/29/18 at 14:22; Status DC Insulin Human Lispro (HumaLOG) 20 units 1X ONCE SQ Last administered on at 22:38; Start 01/29/18 at 23:00; Stop 01/29/18 at 23:01; Status DC Vancomycin HCl (Vancomycin Trough Level) 1 each 1X ONCE MC Last administered on 01/30/18at 21:30; Start 01/30/18 at 21:30; Stop 01/30/18 at 21:31; Status DC Lidocaine/Sodium Bicarbonate (Buffered Lidocaine 1%) 6 ml 1X ONCE INJ Last administered on 01/31/18at 13:45; Start 01/31/18 at 13:30; Stop 01/31/18 at 13 :31; Status DC Lidocaine/Sodium Bicarbonate (Buffered Lidocaine 1%) 3 ml STK-MED ONCE .ROUTE ; Start 01/31/18 at 13:11; Stop 02/01/18 at 11:15; Status DC Meropenem 1 gm/ Sodium Chloride 100 ml @ 200 mls/hr Q12HR IV Last administered on 02/02/18at 10:14; Start 02/01/18 at 21:00 Active Scripts Active Reported Remedy Phytoplex Antifungal (Miconazole Nitrate) 85 Gm Powder 1 Alia TP DAILY Loratadine 10 Mg Tablet 10 Mg PO DAILY Ascorbic Acid 500 Mg Tablet 500 Mg PO BID Hydrochlorothiazide Capsule (Hydrochlorothiazide) 12.5 Mg Capsule 12.5 Mg PO DAILY Glipizide 5 Mg Tablet 1 Tab PO BIDWMEALS Clopidogrel (Clopidogrel Bisulfate) 75 Mg Tablet 75 Mg PO DAILY Tylenol (Acetaminophen) 325 Mg Tablet 325 Mg PO PRN Q4HRS Metformin Hcl 500 Mg Tablet 500 Mg PO BIDWMEALS Lisinopril 20 Mg Tablet 40 Tab PO DAILY Levothyroxine Sodium 25 Mcg Tablet 25 Mcg PO DAILY Aspir 81 (Aspirin) 81 Mg Tablet.dr 81 Mg PO DAILY Amlodipine Besylate 5 Mg Tablet 10 Mg PO DAILY Vitals/I & O Vital Sign - Last 24 Hours 02/01/18 02/01/18 02/01/18 02/01/18 15:00 19:15 20:00 23:15 Temp 98.3 97.9 98.4 98.3 97.9 98.4 Pulse 80 91 114 Resp 16 18 18 B/P (MAP) 142/67 (92) 144/79 (100) 140/55 (83) Pulse Ox 98 98 97 O2 Delivery Room Air Room Air Room Air Room Air 02/02/18 02/02/18 02/02/18 02/02/18 03:37 07:00 10:13 11:00 Temp 97.7 98.2 97.4 97.7 98.2 97.4 Pulse 96 95 95 82 Resp 18 18 16 B/P (MAP) 119/77 (91) 129/73 (91) 129/73 123/75 (91) Pulse Ox 97 96 99 O2 Delivery Room Air Room Air Room Air Intake and Output 02/01/18 02/01/18 02/02/18 15:00 23:00 07:00 Intake Total 580 ml Balance 580 ml ERIKA REEVES III DO Feb 02, 2018 12:01
[2018-02-02 15:00] VITALS: BP 149/92
[2018-02-02] MEDS: guaiFENesin ORAL 200 MG/10 ML LIQUID. PO PRN (16:43)
[2018-02-02 19:00] VITALS: BP 153/79
[2018-02-02 23:00] VITALS: BP 123/75
[2018-02-03 03:00] VITALS: BP 121/57
[2018-02-03] MEDS: LEVOTHYROXINE 25 MCG TABLET. PO SCH (05:52)
[2018-02-03] MEDS: glipiZIDE 5 MG TABLET PO SCH ×2 (05:52→17:16)
[2018-02-03 06:08] LABS: BASO # 0.1 x10^3/uL (0.0-0.2); BASO % 1 % (0-3); EOS # 1.2 x10^3/uL (0.0-0.7); EOS % 12 % (0-3); HEMATOCRIT 34.4 % (39.0-53.0); HEMOGLOBIN 12.2 g/dL (13.0-17.5); LYMPH % 30 % (24-48); MEAN CORPUSCULAR HEMOGLOBIN 32 pg (25-35); MEAN CORPUSCULAR HGB CONC 35 g/dL (31-37); MEAN CORPUSCULAR VOLUME 90 fL (79-100); MONO # 0.9 x10^3/uL (0.0-1.1); MONO % 9 % (0-9); NEUT # 4.9 x10^3uL (1.8-7.7); NEUT % 48 % (31-73); PLATELET COUNT 220 x10^3/uL (140-400); RED BLOOD COUNT 3.81 x10^6/uL (4.30-5.70); RED CELL DISTRIBUTION WIDTH 13.6 % (11.5-14.5); WHITE BLOOD COUNT 10.2 x10^3/uL (4.0-11.0)
[2018-02-03 06:20] LABS: CALCIUM 8.6 mg/dL (8.5-10.1); CREATININE 1.1 mg/dL (0.7-1.3); POTASSIUM 4.6 mmol/L (3.5-5.1)
[2018-02-03 07:00] VITALS: BP 123/75
[2018-02-03] MEDS: INSULIN LISPRO 300 UNITS/3 ML INSULN.PEN. SQ SCH ×3 (08:00→17:18)
--- NOTE | 2018-02-03 08:35 | PDOC ---
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) History of Present Illness History of Present Illness Pt seen and examined while sitting on the side of bed. Pt continues to be very pleasant to talk with. He complains of slight pain, no BM yet, some slight dysuria. He is not oriented currently, however Discussed w/RN A/P: Left diabetic foot cellulitis/osteomyelitis s/p 3rd toe metatarsal resection - stable, seen by vascular and ID DM - Hyperglycemia - will cont aggressive insulin treatment PAD - stable MRSA - historical, will consider decolonizing Cognitive disability - stable HTN - will monitor Hypothyroidism - cont meds H/o amputation (4 toes on left foot) Vitals Vitals Vital Signs Date Time Temp Pulse Resp B/P (MAP) Pulse Ox O2 Delivery O2 Flow Rate FiO2 02/03/18 03:00 97.5 83 18 121/57 (78) 97 Room Air 97.5 Physical Exam Physical Exam HEENT: Mucus membranes moist Neck: Supple, No JVD General: Alert, Cooperative, No acute distress, Other Heart: Regular rate, Normal S1, Normal S2, No murmurs Lungs: Clear Abdomen: Soft, No tenderness Extremities: Other (Left foot bandages clean, dry and intact) Skin: No rashes Labs LABS Laboratory Tests Test 02/02/18 10:45 02/02/18 16:28 02/02/18 20:31 02/03/18 05:50 Glucose (Fingerstick) 223 mg/dL (70-99) 119 mg/dL (70-99) 149 mg/dL (70-99) White Blood Count 10.2 x10^3/uL (4.0-11.0) Red Blood Count 3.81 x10^6/uL (4.30-5.70) Hemoglobin 12.2 g/dL (13.0-17.5) Hematocrit 34.4 % (39.0-53.0) Mean Corpuscular Volume 90 fL (79-100) Mean Corpuscular Hemoglobin 32 pg (25-35) Mean Corpuscular Hemoglobin Concent 35 g/dL (31-37) Red Cell Distribution Width 13.6 % (11.5-14.5) Platelet Count 220 x10^3/uL (140-400) Neutrophils (%) (Auto) 48 % (31-73) Lymphocytes (%) (Auto) 30 % (24-48) Monocytes (%) (Auto) 9 % (0-9) Eosinophils (%) (Auto) 12 % (0-3) Basophils (%) (Auto) 1 % (0-3) Neutrophils # (Auto) 4.9 x10^3uL (1.8-7.7) Lymphocytes # (Auto) 3.0 x10^3/uL (1.0-4.8) Monocytes # (Auto) 0.9 x10^3/uL (0.0-1.1) Eosinophils # (Auto) 1.2 x10^3/uL (0.0-0.7) Basophils # (Auto) 0.1 x10^3/uL (0.0-0.2) Sodium Level 142 mmol/L (136-145) Potassium Level 4.6 mmol/L (3.5-5.1) Chloride Level 105 mmol/L (98-107) Carbon Dioxide Level 28 mmol/L (21-32) Anion Gap 9 (6-14) Blood Urea Nitrogen 46 mg/dL (8-26) Creatinine 1.1 mg/dL (0.7-1.3) Estimated GFR (Cockcroft-Gault) 67.0 Glucose Level 154 mg/dL (70-99) Calcium Level 8.6 mg/dL (8.5-10.1) Comment Review of Relevant I have reviewed the following items billy (where applicable) has been applied. Labs Laboratory Tests Test 02/01/18 11:42 02/01/18 16:45 02/01/18 20:47 02/02/18 06:00 Glucose (Fingerstick) 112 mg/dL (70-99) 154 mg/dL (70-99) 191 mg/dL (70-99) White Blood Count 11.3 x10^3/uL (4.0-11.0) Red Blood Count 3.87 x10^6/uL (4.30-5.70) Hemoglobin 12.4 g/dL (13.0-17.5) Hematocrit 34.8 % (39.0-53.0) Mean Corpuscular Volume 90 fL (79-100) Mean Corpuscular Hemoglobin 32 pg (25-35) Mean Corpuscular Hemoglobin Concent 36 g/dL (31-37) Red Cell Distribution Width 13.7 % (11.5-14.5) Platelet Count 234 x10^3/uL (140-400) Neutrophils (%) (Auto) 44 % (31-73) Lymphocytes (%) (Auto) 34 % (24-48) Monocytes (%) (Auto) 10 % (0-9) Eosinophils (%) (Auto) 11 % (0-3) Basophils (%) (Auto) 1 % (0-3) Neutrophils # (Auto) 5.0 x10^3uL (1.8-7.7) Lymphocytes # (Auto) 3.8 x10^3/uL (1.0-4.8) Monocytes # (Auto) 1.1 x10^3/uL (0.0-1.1) Eosinophils # (Auto) 1.2 x10^3/uL (0.0-0.7) Basophils # (Auto) 0.2 x10^3/uL (0.0-0.2) Segmented Neutrophils % 43 % (35-66) Lymphocytes % 34 % (24-48) Atypical Lymphocytes % (Manual) 1 % (0-0) Monocytes % 9 % (0-10) Eosinophils % 13 % (0-5) Platelet Estimate Adequate (ADEQUATE) Sodium Level 144 mmol/L (136-145) Potassium Level 4.5 mmol/L (3.5-5.1) Chloride Level 106 mmol/L (98-107) Carbon Dioxide Level 30 mmol/L (21-32) Anion Gap 8 (6-14) Blood Urea Nitrogen 44 mg/dL (8-26) Creatinine 1.1 mg/dL (0.7-1.3) Estimated GFR (Cockcroft-Gault) 67.0 Glucose Level 141 mg/dL (70-99) Calcium Level 8.4 mg/dL (8.5-10.1) Test 02/02/18 07:41 02/02/18 10:45 02/02/18 16:28 02/02/18 20:31 Glucose (Fingerstick) 140 mg/dL (70-99) 223 mg/dL (70-99) 119 mg/dL (70-99) 149 mg/dL (70-99) Test 02/03/18 05:50 White Blood Count 10.2 x10^3/uL (4.0-11.0) Red Blood Count 3.81 x10^6/uL (4.30-5.70) Hemoglobin 12.2 g/dL (13.0-17.5) Hematocrit 34.4 % (39.0-53.0) Mean Corpuscular Volume 90 fL (79-100) Mean Corpuscular Hemoglobin 32 pg (25-35) Mean Corpuscular Hemoglobin Concent 35 g/dL (31-37) Red Cell Distribution Width 13.6 % (11.5-14.5) Platelet Count 220 x10^3/uL (140-400) Neutrophils (%) (Auto) 48 % (31-73) Lymphocytes (%) (Auto) 30 % (24-48) Monocytes (%) (Auto) 9 % (0-9) Eosinophils (%) (Auto) 12 % (0-3) Basophils (%) (Auto) 1 % (0-3) Neutrophils # (Auto) 4.9 x10^3uL (1.8-7.7) Lymphocytes # (Auto) 3.0 x10^3/uL (1.0-4.8) Monocytes # (Auto) 0.9 x10^3/uL (0.0-1.1) Eosinophils # (Auto) 1.2 x10^3/uL (0.0-0.7) Basophils # (Auto) 0.1 x10^3/uL (0.0-0.2) Sodium Level 142 mmol/L (136-145) Potassium Level 4.6 mmol/L (3.5-5.1) Chloride Level 105 mmol/L (98-107) Carbon Dioxide Level 28 mmol/L (21-32) Anion Gap 9 (6-14) Blood Urea Nitrogen 46 mg/dL (8-26) Creatinine 1.1 mg/dL (0.7-1.3) Estimated GFR (Cockcroft-Gault) 67.0 Glucose Level 154 mg/dL (70-99) Calcium Level 8.6 mg/dL (8.5-10.1) Laboratory Tests Test 02/02/18 10:45 02/02/18 16:28 02/02/18 20:31 02/03/18 05:50 Glucose (Fingerstick) 223 mg/dL (70-99) 119 mg/dL (70-99) 149 mg/dL (70-99) White Blood Count 10.2 x10^3/uL (4.0-11.0) Red Blood Count 3.81 x10^6/uL (4.30-5.70) Hemoglobin 12.2 g/dL (13.0-17.5) Hematocrit 34.4 % (39.0-53.0) Mean Corpuscular Volume 90 fL (79-100) Mean Corpuscular Hemoglobin 32 pg (25-35) Mean Corpuscular Hemoglobin Concent 35 g/dL (31-37) Red Cell Distribution Width 13.6 % (11.5-14.5) Platelet Count 220 x10^3/uL (140-400) Neutrophils (%) (Auto) 48 % (31-73) Lymphocytes (%) (Auto) 30 % (24-48) Monocytes (%) (Auto) 9 % (0-9) Eosinophils (%) (Auto) 12 % (0-3) Basophils (%) (Auto) 1 % (0-3) Neutrophils # (Auto) 4.9 x10^3uL (1.8-7.7) Lymphocytes # (Auto) 3.0 x10^3/uL (1.0-4.8) Monocytes # (Auto) 0.9 x10^3/uL (0.0-1.1) Eosinophils # (Auto) 1.2 x10^3/uL (0.0-0.7) Basophils # (Auto) 0.1 x10^3/uL (0.0-0.2) Sodium Level 142 mmol/L (136-145) Potassium Level 4.6 mmol/L (3.5-5.1) Chloride Level 105 mmol/L (98-107) Carbon Dioxide Level 28 mmol/L (21-32) Anion Gap 9 (6-14) Blood Urea Nitrogen 46 mg/dL (8-26) Creatinine 1.1 mg/dL (0.7-1.3) Estimated GFR (Cockcroft-Gault) 67.0 Glucose Level 154 mg/dL (70-99) Calcium Level 8.6 mg/dL (8.5-10.1) Microbiology 01/23/18 Blood Culture - Final, Complete NO GROWTH AFTER 5 DAYS 01/23/18 Urine Culture - Final, Complete 01/23/18 Urine Culture Result 1 (ILDA) - Final, Complete 01/29/18 Anaerobic/Aerobic Culture - Final, Complete 01/29/18 Anaerobic Culture Result 1 (ILDA) - Final, Complete 01/29/18 Aerobic Culture - Final, Complete 01/29/18 Aerobic Culture Result 1 (ILDA) - Final, Complete 01/29/18 Gram Stain - Final, Complete 01/29/18 Gram Stain Result 1 (ILDA) - Final, Complete 01/29/18 Gram Stain Result 2 (ILDA) - Final, Complete Medications Current Medications Vancomycin HCl (Vanco Per Pharmacy) 1 each PRN DAILY PRN MC SEE COMMENTS Last administered on 01/31/18at 01:48; Start 01/23/18 at 17:15; Stop 01/31/18 at 11 :02; Status DC Meropenem 500 mg/ Sodium Chloride 50 ml @ 100 mls/hr Q8HRS IV Last administered on 02/01/18at 05:54; Start 01/23/18 at 22:00; Stop 02/01/18 at 13: 56; Status DC Sodium Chloride 1,000 ml @ 75 mls/hr [id number] IV ; Start 01/23/18 at 17:15; Status Cancel Insulin Human Lispro (HumaLOG) 0-5 UNITS TIDWMEALS SQ Last administered on 02/02at 12:42; Start 01/23/18 at 17:30 Dextrose (Dextrose 50%-Water Syringe) 12.5 gm PRN Q15MIN PRN IV SEE COMMENTS; Start 01/23/18 at 17:15 Vancomycin HCl 1.75 gm/Sodium Chloride 500 ml @ 250 mls/hr 1X ONCE IV Last administered on 01/23/18at 17:58; Start 01/23/18 at 17:30; Stop 01/23/18 at 19 :29; Status DC Meropenem 500 mg/ Sodium Chloride 50 ml @ 100 mls/hr 1X ONCE IV Last administered on 01/23/18at 17:57; Start 01/23/18 at 17:30; Stop 01/23/18 at 17 :59; Status DC Acetaminophen (Tylenol) 650 mg PRN Q4HRS PO ; Start 01/23/18 at 17:15; Status UNV Amlodipine Besylate (Norvasc) 10 mg BID PO Last administered on 01/25/18at 09: 27; Start 01/23/18 at 21:00; Stop 01/25/18 at 16:22; Status DC Ascorbic Acid (Vitamin C) 500 mg DAILY PO Last administered on 02/02/18at 10:13 ; Start 01/24/18 at 09:00 Aspirin (Ecotrin) 81 mg DAILY PO Last administered on 02/02/18at 10:12; Start 01/24/18 at 09:00 Clopidogrel Bisulfate (Plavix) 75 mg DAILY PO Last administered on 02/02/18at 10 :13; Start 01/24/18 at 09:00 Glipizide (Glucotrol) 5 mg BIDAC PO Last administered on 02/03/18at 05:52; Start 01/24/18 at 07:30 Lisinopril (Prinivil) 40 mg BID PO Last administered on 01/25/18at 09:26; Start 01/23/18 at 21:00; Stop 01/25/18 at 16:23; Status DC Metoprolol Tartrate (Lopressor) 25 mg DAILY PO Last administered on 01/25/18 09:28; Start 01/24/18 at 09:00; Stop 01/25/18 at 16:22; Status DC Hydrochlorothiazide (Microzide) 12.5 mg DAILY PO Last administered on at 10:12; Start 01/24/18 at 09:00 Levothyroxine Sodium (Synthroid) 25 mcg DAILY06 PO Last administered on at 05:52; Start 01/24/18 at 06:00 Metformin HCl (Glucophage) 500 mg BIDWMEALS PO Last administered on 02/02/18at 16:40; Start 01/23/18 at 18:00 Multivitamins/ Minerals (I-Erica) 1 tab DAILY PO Last administered on 02/02/18at 10:12; Start 01/24/18 at 09:00 Sodium Chloride (Normal Saline Flush 3ml) 3 ml QSHIFT PRN IV AFTER MEDS AND BLOOD DRAWS; Start 01/23/18 at 17:30 Sodium Chloride 1,000 ml @ 100 mls/hr Q10H IV Last administered on 01/25/18at 06:11; Start 01/23/18 at 18:00; Stop 01/25/18 at 17:43; Status DC Ondansetron HCl (Zofran) 4 mg PRN Q4HRS PRN IV NAUSEA/VOMITING; Start at 17:30 Acetaminophen (Tylenol) 650 mg PRN Q4HRS PRN PO TEMP OVER 100.4F OR MILD PAIN; Start 01/23/18 at 17:30 Al Hydroxide/Mg Hydroxide (Mylanta Plus Xs) 30 ml PRN DAILY PRN PO HEARTBURN / GAS; Start 01/23/18 at 17:30 Sodium Monofluorophosphate (Fleet Adult) 133 ml PRN DAILY PRN [place] CONSTIPATION; Start 01/23/18 at 17:30 Docusate Sodium (Colace) 100 mg PRN BID PRN PO CONSTIPATION Last administered on 01/28/18at 08:50; Start 01/23/18 at 17:30 Albuterol Sulfate (Ventolin Neb Soln) 2.5 mg PRN Q4HRS PRN NEB SHORTNESS OF BREATH; Start 01/23/18 at 17:30 Guaifenesin (Robitussin) 200 mg PRN Q4HRS PRN PO COUGH Last administered on 02/02/18at 16:43; Start 01/23/18 at 17:30 Enoxaparin Sodium (Lovenox 40mg Syringe) 40 mg DAILY SQ ; Start 01/24/18 at 09: 00 Vancomycin HCl 1 gm/Dextrose 250 ml @ 250 mls/hr 1X ONCE IV ; Start 01/23/18 at 17:30; Stop 01/23/18 at 18:29; Status UNV Vancomycin HCl (Vanco Per Pharmacy) 1 each PRN DAILY PRN MC SEE COMMENTS; Start 01/23/18 at 17:30; Status UNV Acetaminophen/ Hydrocodone Bitart (Lortab 5/325) 1 tab PRN Q6HRS PRN PO MOD TO SEVERE PAIN; Start 01/23/18 at 18:30 Vancomycin HCl 1.25 gm/Sodium Chloride 250 ml @ 250 mls/hr Q18H IV Last administered on 01/25/18at 07:25; Start 01/24/18 at 12:00; Stop 01/25/18 at 09 :00; Status DC Vancomycin HCl (Vancomycin Trough Level) 1 each 1X ONCE MC Last administered on 01/25/18at 06:30; Start 01/25/18 at 05:30; Stop 01/25/18 at 05:31; Status DC Lactobacillus Rhamnosus (Culturelle) 1 cap BID PO Last administered on at 19:41; Start 01/24/18 at 21:00 Vancomycin HCl 1.25 gm/Sodium Chloride 250 ml @ 250 mls/hr Q12H IV Last administered on 01/26/18at 19:59; Start 01/25/18 at 20:00; Stop 01/27/18 at 08 :54; Status DC Amlodipine Besylate (Norvasc) 10 mg DAILY PO Last administered on 02/02/18at 10: 13; Start 01/26/18 at 09:00 Lisinopril (Prinivil) 40 mg DAILY PO Last administered on 01/28/18at 08:55; Start 01/26/18 at 09:00; Stop 01/28/18 at 13:54; Status DC Vancomycin HCl (Vancomycin Trough Level) 1 each 1X ONCE MC ; Start 01/27/18 at 07:30; Stop 01/27/18 at 07:31; Status DC Ondansetron HCl (Zofran) 4 mg PRN Q6HRS PRN IV NAUSEA/VOMITING; Start at 07:00; Stop 01/30/18 at 06:59; Status DC Fentanyl Citrate (Fentanyl 2ml Vial) 25 mcg PRN Q5MIN PRN IV MILD PAIN; Start 01/29/18 at 07:00; Stop 01/30/18 at 06:59; Status DC Fentanyl Citrate (Fentanyl 2ml Vial) 50 mcg PRN Q5MIN PRN IV MODERATE TO SEVERE PAIN Last administered on 01/29/18at 14:24; Start 01/29/18 at 07:00; Stop 01/30/18 at 06:59; Status DC Morphine Sulfate (Morphine Sulfate) 1 mg PRN Q10MIN PRN IV SEVERE PAIN; Start 01/29/18 at 07:00; Stop 01/30/18 at 06:59; Status DC Ringer's Solution 1,000 ml @ 30 mls/hr Q24H IV ; Start 01/29/18 at 07:00; Stop 01/29/18 at 18:59; Status DC Lidocaine HCl (Xylocaine-Mpf 1% 2ml Vial) 2 ml PRN 1X PRN ID PRIOR TO IV START ; Start 01/29/18 at 07:00; Stop 01/30/18 at 06:59; Status DC Hydromorphone HCl (Dilaudid) 0.5 mg PRN Q10MIN PRN IV SEV PAIN, Second choice; Start 01/29/18 at 07:00; Stop 01/30/18 at 06:59; Status DC Prochlorperazine Edisylate (Compazine) 5 mg PACU PRN PRN IV NAUSEA, MRX1; Start 01/29/18 at 07:00; Stop 01/30/18 at 06:59; Status DC Vancomycin HCl (Vancomycin Random Level) 1 each 1X ONCE MC Last administered on 01/27/18at 19:00; Start 01/27/18 at 19:00; Stop 01/27/18 at 19:01; Status DC Benzonatate (Tessalon Perle) 100 mg [id number] PO Last administered on 02/02/18at 19 :40; Start 01/27/18 at 14:00 Vancomycin HCl 1.25 gm/Sodium Chloride 250 ml @ 166.667 mls/hr Q18H IV Last administered on 01/30/18at 22:00; Start 01/27/18 at 22:00; Stop 01/31/18 at 11 :02; Status DC Promethazine HCl/ Codeine (Phenergan With Codeine Oral Syrup) 5 ml PRN Q4HRS PRN PO COUGH 2ND CHOICE Last administered on 01/29/18at 19:09; Start 01/28/18 at 14:00 Propofol 20 ml @ As Directed STK-MED ONCE IV ; Start 01/29/18 at 12:42; Stop 01/29/18 at 12:43; Status DC Dexamethasone Sodium Phosphate (Decadron) 20 mg STK-MED ONCE .ROUTE ; Start at 12:42; Stop 01/29/18 at 12:43; Status DC Famotidine (Pepcid Vial) 20 mg STK-MED ONCE .ROUTE ; Start 01/29/18 at 12:42; Stop 01/29/18 at 12:43; Status DC Lidocaine HCl (Lidocaine Pf 2% Vial) 5 ml STK-MED ONCE .ROUTE ; Start 01/29/18 at 12:42; Stop 01/29/18 at 12:43; Status DC Ondansetron HCl (Zofran) 4 mg STK-MED ONCE .ROUTE ; Start 01/29/18 at 12:42; Stop 01/29/18 at 12:43; Status DC Fentanyl Citrate (Fentanyl 2ml Vial) 100 mcg STK-MED ONCE .ROUTE ; Start at 12:42; Stop 01/29/18 at 12:43; Status DC Midazolam HCl (Versed) 2 mg STK-MED ONCE .ROUTE ; Start 01/29/18 at 12:42; Stop 01/29/18 at 12:43; Status DC Cefazolin Sodium 1 gm/Sodium Chloride 250 ml @ 250 mls/hr 1X ONCE IV ; Start 01/29/18 at 13:00; Stop 01/29/18 at 13:59; Status DC Famotidine (Pepcid Vial) 20 mg STK-MED ONCE .ROUTE ; Start 01/29/18 at 13:07; Stop 01/29/18 at 13:08; Status DC Ephedrine Sulfate (ePHEDrine PF IN SALINE SYRINGE) 50 mg STK-MED ONCE IV ; Start 01/29/18 at 13:42; Stop 01/29/18 at 13:43; Status DC Fentanyl Citrate (Fentanyl 2ml Vial) 100 mcg STK-MED ONCE .ROUTE ; Start at 14:21; Stop 01/29/18 at 14:22; Status DC Insulin Human Lispro (HumaLOG) 20 units 1X ONCE SQ Last administered on at 22:38; Start 01/29/18 at 23:00; Stop 01/29/18 at 23:01; Status DC Vancomycin HCl (Vancomycin Trough Level) 1 each 1X ONCE MC Last administered on 01/30/18at 21:30; Start 01/30/18 at 21:30; Stop 01/30/18 at 21:31; Status DC Lidocaine/Sodium Bicarbonate (Buffered Lidocaine 1%) 6 ml 1X ONCE INJ Last administered on 01/31/18at 13:45; Start 01/31/18 at 13:30; Stop 01/31/18 at 13 :31; Status DC Lidocaine/Sodium Bicarbonate (Buffered Lidocaine 1%) 3 ml STK-MED ONCE .ROUTE ; Start 01/31/18 at 13:11; Stop 02/01/18 at 11:15; Status DC Meropenem 1 gm/ Sodium Chloride 100 ml @ 200 mls/hr Q12HR IV Last administered on 02/02/18at 20:17; Start 02/01/18 at 21:00 Active Scripts Active Reported Remedy Phytoplex Antifungal (Miconazole Nitrate) 85 Gm Powder 1 Alia TP DAILY Loratadine 10 Mg Tablet 10 Mg PO DAILY Ascorbic Acid 500 Mg Tablet 500 Mg PO BID Hydrochlorothiazide Capsule (Hydrochlorothiazide) 12.5 Mg Capsule 12.5 Mg PO DAILY Glipizide 5 Mg Tablet 1 Tab PO BIDWMEALS Clopidogrel (Clopidogrel Bisulfate) 75 Mg Tablet 75 Mg PO DAILY Tylenol (Acetaminophen) 325 Mg Tablet 325 Mg PO PRN Q4HRS Metformin Hcl 500 Mg Tablet 500 Mg PO BIDWMEALS Lisinopril 20 Mg Tablet 40 Tab PO DAILY Levothyroxine Sodium 25 Mcg Tablet 25 Mcg PO DAILY Aspir 81 (Aspirin) 81 Mg Tablet.dr 81 Mg PO DAILY Amlodipine Besylate 5 Mg Tablet 10 Mg PO DAILY Vitals/I & O Vital Sign - Last 24 Hours 02/02/18 02/02/18 02/02/18 02/02/18 08:45 10:13 11:00 15:00 Temp 97.4 97.6 97.4 97.6 Pulse 95 82 87 Resp 16 18 B/P (MAP) 129/73 123/75 (91) 149/92 (111) Pulse Ox 99 98 O2 Delivery Room Air Room Air Room Air 02/02/18 02/02/18 02/02/18 02/03/18 19:00 19:15 23:00 03:00 Temp 97.5 97.7 97.5 97.5 97.7 97.5 Pulse 87 105 83 Resp 18 B/P (MAP) 153/79 (103) 123/75 (91) 121/57 (78) Pulse Ox 94 94 97 O2 Delivery Room Air Room Air Room Air Room Air Intake and Output 02/02/18 02/02/18 02/03/18 15:00 23:00 07:00 Intake Total 250 ml 200 ml Balance 250 ml 200 ml PRECIOUS GRBUBS MD Feb 03, 2018 08:35
[2018-02-03] MEDS: ENOXAPARIN 40 MG/0.4 ML SYRINGE. SQ SCH (09:00)
[2018-02-03] MEDS: metFORMIN 500 MG TABLET PO SCH ×2 (09:08→17:16)
[2018-02-03] MEDS: MULTIVITAMIN I-VITE TABLET. PO SCH (09:09)
[2018-02-03] MEDS: ASCORBIC ACID 500 MG TABLET PO SCH (09:09)
[2018-02-03] MEDS: CLOPIDOGREL BISULFATE 75 MG TABLET PO SCH (09:09)
[2018-02-03] MEDS: hydroCHLOROthiazide 12.5 MG CAPSULE PO SCH (09:09)
[2018-02-03] MEDS: LACTOBACILLUS RHAMNOSUS GG 1 CAPSULE. PO SCH ×2 (09:09→20:48)
[2018-02-03] MEDS: BENZONATATE 100 MG CAPSULE. PO SCH ×3 (09:09→20:48)
[2018-02-03] MEDS: ASPIRIN ENTERIC COATED 81 MG TABLET.DR. PO SCH (09:09)
[2018-02-03] MEDS: MEROPENEM 1 GM in IV NORMAL SALINE 100ML 100 ML IV SCH ×2 (09:09→20:48)
[2018-02-03] MEDS: amLODIPine BESYLATE 10 MG TABLET PO SCH (09:10)
[2018-02-03 11:00] VITALS: BP 116/71
[2018-02-03 15:00] VITALS: BP 139/85
[2018-02-03 19:00] VITALS: BP 118/65
[2018-02-04 03:00] VITALS: BP 129/69
[2018-02-04] MEDS: LEVOTHYROXINE 25 MCG TABLET. PO SCH (06:13)
[2018-02-04 06:33] LABS: BASO # 0.1 x10^3/uL (0.0-0.2); BASO % 2 % (0-3); EOS # 1.2 x10^3/uL (0.0-0.7); EOS % 12 % (0-3); HEMATOCRIT 33.2 % (39.0-53.0); LYMPH # 3.1 x10^3/uL (1.0-4.8); LYMPH % 32 % (24-48); MEAN CORPUSCULAR HEMOGLOBIN 33 pg (25-35); MEAN CORPUSCULAR HGB CONC 36 g/dL (31-37); MEAN CORPUSCULAR VOLUME 90 fL (79-100); MONO % 10 % (0-9); NEUT # 4.4 x10^3uL (1.8-7.7); NEUT % 45 % (31-73); PLATELET COUNT 204 x10^3/uL (140-400); RED BLOOD COUNT 3.69 x10^6/uL (4.30-5.70); RED CELL DISTRIBUTION WIDTH 13.7 % (11.5-14.5); WHITE BLOOD COUNT 9.8 x10^3/uL (4.0-11.0)
[2018-02-04 06:37] LABS: CALCIUM 8.1 mg/dL (8.5-10.1); GFR 74.8; POTASSIUM 4.4 mmol/L (3.5-5.1)
[2018-02-04 07:00] VITALS: BP 118/76
--- NOTE | 2018-02-04 07:21 | PDOC ---
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) History of Present Illness History of Present Illness Pt seen and examined while sitting on the side of bed. Pt continues to be very pleasant to talk with. He complains of no pain. He is not oriented currently, however. Discussed w/RN A/P: Left diabetic foot cellulitis/osteomyelitis s/p 3rd toe metatarsal resection - stable, seen by vascular and ID, will require 6 total weeks of antibiotics , disposition is very difficult as he is too functional DM - Hyperglycemia - will cont aggressive insulin treatment PAD - stable MRSA - historical, will consider decolonizing Cognitive disability - stable HTN - will monitor Hypothyroidism - cont meds H/o amputation (4 toes on left foot) Vitals Vitals Vital Signs Date Time Temp Pulse Resp B/P (MAP) Pulse Ox O2 Delivery O2 Flow Rate FiO2 02/04/18 03:00 98.2 72 18 129/69 (89) 98 Room Air 98.2 Physical Exam Physical Exam HEENT: Mucus membranes moist Neck: Supple, No JVD General: Alert, Cooperative, No acute distress, Other Heart: Regular rate, Normal S1, Normal S2, No murmurs Lungs: Clear Abdomen: Soft, No tenderness Extremities: Other (Left foot bandages clean, dry and intact) Skin: No rashes Labs LABS Laboratory Tests Test 02/03/18 11:06 02/03/18 16:42 02/03/18 21:07 02/04/18 06:10 Glucose (Fingerstick) 174 mg/dL (70-99) 202 mg/dL (70-99) 222 mg/dL (70-99) White Blood Count 9.8 x10^3/uL (4.0-11.0) Red Blood Count 3.69 x10^6/uL (4.30-5.70) Hemoglobin 12.0 g/dL (13.0-17.5) Hematocrit 33.2 % (39.0-53.0) Mean Corpuscular Volume 90 fL (79-100) Mean Corpuscular Hemoglobin 33 pg (25-35) Mean Corpuscular Hemoglobin Concent 36 g/dL (31-37) Red Cell Distribution Width 13.7 % (11.5-14.5) Platelet Count 204 x10^3/uL (140-400) Neutrophils (%) (Auto) 45 % (31-73) Lymphocytes (%) (Auto) 32 % (24-48) Monocytes (%) (Auto) 10 % (0-9) Eosinophils (%) (Auto) 12 % (0-3) Basophils (%) (Auto) 2 % (0-3) Neutrophils # (Auto) 4.4 x10^3uL (1.8-7.7) Lymphocytes # (Auto) 3.1 x10^3/uL (1.0-4.8) Monocytes # (Auto) 1.0 x10^3/uL (0.0-1.1) Eosinophils # (Auto) 1.2 x10^3/uL (0.0-0.7) Basophils # (Auto) 0.1 x10^3/uL (0.0-0.2) Sodium Level 141 mmol/L (136-145) Potassium Level 4.4 mmol/L (3.5-5.1) Chloride Level 105 mmol/L (98-107) Carbon Dioxide Level 28 mmol/L (21-32) Anion Gap 8 (6-14) Blood Urea Nitrogen 49 mg/dL (8-26) Creatinine 1.0 mg/dL (0.7-1.3) Estimated GFR (Cockcroft-Gault) 74.8 Glucose Level 129 mg/dL (70-99) Calcium Level 8.1 mg/dL (8.5-10.1) Comment Review of Relevant I have reviewed the following items billy (where applicable) has been applied. Labs Laboratory Tests Test 02/02/18 07:41 02/02/18 10:45 02/02/18 16:28 02/02/18 20:31 Glucose (Fingerstick) 140 mg/dL (70-99) 223 mg/dL (70-99) 119 mg/dL (70-99) 149 mg/dL (70-99) Test 02/03/18 05:50 02/03/18 11:06 02/03/18 16:42 02/03/18 21:07 White Blood Count 10.2 x10^3/uL (4.0-11.0) Red Blood Count 3.81 x10^6/uL (4.30-5.70) Hemoglobin 12.2 g/dL (13.0-17.5) Hematocrit 34.4 % (39.0-53.0) Mean Corpuscular Volume 90 fL (79-100) Mean Corpuscular Hemoglobin 32 pg (25-35) Mean Corpuscular Hemoglobin Concent 35 g/dL (31-37) Red Cell Distribution Width 13.6 % (11.5-14.5) Platelet Count 220 x10^3/uL (140-400) Neutrophils (%) (Auto) 48 % (31-73) Lymphocytes (%) (Auto) 30 % (24-48) Monocytes (%) (Auto) 9 % (0-9) Eosinophils (%) (Auto) 12 % (0-3) Basophils (%) (Auto) 1 % (0-3) Neutrophils # (Auto) 4.9 x10^3uL (1.8-7.7) Lymphocytes # (Auto) 3.0 x10^3/uL (1.0-4.8) Monocytes # (Auto) 0.9 x10^3/uL (0.0-1.1) Eosinophils # (Auto) 1.2 x10^3/uL (0.0-0.7) Basophils # (Auto) 0.1 x10^3/uL (0.0-0.2) Sodium Level 142 mmol/L (136-145) Potassium Level 4.6 mmol/L (3.5-5.1) Chloride Level 105 mmol/L (98-107) Carbon Dioxide Level 28 mmol/L (21-32) Anion Gap 9 (6-14) Blood Urea Nitrogen 46 mg/dL (8-26) Creatinine 1.1 mg/dL (0.7-1.3) Estimated GFR (Cockcroft-Gault) 67.0 Glucose Level 154 mg/dL (70-99) Calcium Level 8.6 mg/dL (8.5-10.1) Glucose (Fingerstick) 174 mg/dL (70-99) 202 mg/dL (70-99) 222 mg/dL (70-99) Test 02/04/18 06:10 White Blood Count 9.8 x10^3/uL (4.0-11.0) Red Blood Count 3.69 x10^6/uL (4.30-5.70) Hemoglobin 12.0 g/dL (13.0-17.5) Hematocrit 33.2 % (39.0-53.0) Mean Corpuscular Volume 90 fL (79-100) Mean Corpuscular Hemoglobin 33 pg (25-35) Mean Corpuscular Hemoglobin Concent 36 g/dL (31-37) Red Cell Distribution Width 13.7 % (11.5-14.5) Platelet Count 204 x10^3/uL (140-400) Neutrophils (%) (Auto) 45 % (31-73) Lymphocytes (%) (Auto) 32 % (24-48) Monocytes (%) (Auto) 10 % (0-9) Eosinophils (%) (Auto) 12 % (0-3) Basophils (%) (Auto) 2 % (0-3) Neutrophils # (Auto) 4.4 x10^3uL (1.8-7.7) Lymphocytes # (Auto) 3.1 x10^3/uL (1.0-4.8) Monocytes # (Auto) 1.0 x10^3/uL (0.0-1.1) Eosinophils # (Auto) 1.2 x10^3/uL (0.0-0.7) Basophils # (Auto) 0.1 x10^3/uL (0.0-0.2) Sodium Level 141 mmol/L (136-145) Potassium Level 4.4 mmol/L (3.5-5.1) Chloride Level 105 mmol/L (98-107) Carbon Dioxide Level 28 mmol/L (21-32) Anion Gap 8 (6-14) Blood Urea Nitrogen 49 mg/dL (8-26) Creatinine 1.0 mg/dL (0.7-1.3) Estimated GFR (Cockcroft-Gault) 74.8 Glucose Level 129 mg/dL (70-99) Calcium Level 8.1 mg/dL (8.5-10.1) Laboratory Tests Test 02/03/18 11:06 02/03/18 16:42 02/03/18 21:07 02/04/18 06:10 Glucose (Fingerstick) 174 mg/dL (70-99) 202 mg/dL (70-99) 222 mg/dL (70-99) White Blood Count 9.8 x10^3/uL (4.0-11.0) Red Blood Count 3.69 x10^6/uL (4.30-5.70) Hemoglobin 12.0 g/dL (13.0-17.5) Hematocrit 33.2 % (39.0-53.0) Mean Corpuscular Volume 90 fL (79-100) Mean Corpuscular Hemoglobin 33 pg (25-35) Mean Corpuscular Hemoglobin Concent 36 g/dL (31-37) Red Cell Distribution Width 13.7 % (11.5-14.5) Platelet Count 204 x10^3/uL (140-400) Neutrophils (%) (Auto) 45 % (31-73) Lymphocytes (%) (Auto) 32 % (24-48) Monocytes (%) (Auto) 10 % (0-9) Eosinophils (%) (Auto) 12 % (0-3) Basophils (%) (Auto) 2 % (0-3) Neutrophils # (Auto) 4.4 x10^3uL (1.8-7.7) Lymphocytes # (Auto) 3.1 x10^3/uL (1.0-4.8) Monocytes # (Auto) 1.0 x10^3/uL (0.0-1.1) Eosinophils # (Auto) 1.2 x10^3/uL (0.0-0.7) Basophils # (Auto) 0.1 x10^3/uL (0.0-0.2) Sodium Level 141 mmol/L (136-145) Potassium Level 4.4 mmol/L (3.5-5.1) Chloride Level 105 mmol/L (98-107) Carbon Dioxide Level 28 mmol/L (21-32) Anion Gap 8 (6-14) Blood Urea Nitrogen 49 mg/dL (8-26) Creatinine 1.0 mg/dL (0.7-1.3) Estimated GFR (Cockcroft-Gault) 74.8 Glucose Level 129 mg/dL (70-99) Calcium Level 8.1 mg/dL (8.5-10.1) Microbiology 01/23/18 Blood Culture - Final, Complete NO GROWTH AFTER 5 DAYS 01/23/18 Urine Culture - Final, Complete 01/23/18 Urine Culture Result 1 (ILDA) - Final, Complete 01/29/18 Anaerobic/Aerobic Culture - Final, Complete 01/29/18 Anaerobic Culture Result 1 (ILDA) - Final, Complete 01/29/18 Aerobic Culture - Final, Complete 01/29/18 Aerobic Culture Result 1 (ILDA) - Final, Complete 01/29/18 Gram Stain - Final, Complete 01/29/18 Gram Stain Result 1 (ILDA) - Final, Complete 01/29/18 Gram Stain Result 2 (ILDA) - Final, Complete Medications Current Medications Vancomycin HCl (Vanco Per Pharmacy) 1 each PRN DAILY PRN MC SEE COMMENTS Last administered on 01/31/18at 01:48; Start 01/23/18 at 17:15; Stop 01/31/18 at 11 :02; Status DC Meropenem 500 mg/ Sodium Chloride 50 ml @ 100 mls/hr Q8HRS IV Last administered on 02/01/18at 05:54; Start 01/23/18 at 22:00; Stop 02/01/18 at 13: 56; Status DC Sodium Chloride 1,000 ml @ 75 mls/hr [id number] IV ; Start 01/23/18 at 17:15; Status Cancel Insulin Human Lispro (HumaLOG) 0-5 UNITS TIDWMEALS SQ Last administered on 02/03at 17:18; Start 01/23/18 at 17:30 Dextrose (Dextrose 50%-Water Syringe) 12.5 gm PRN Q15MIN PRN IV SEE COMMENTS; Start 01/23/18 at 17:15 Vancomycin HCl 1.75 gm/Sodium Chloride 500 ml @ 250 mls/hr 1X ONCE IV Last administered on 01/23/18at 17:58; Start 01/23/18 at 17:30; Stop 01/23/18 at 19 :29; Status DC Meropenem 500 mg/ Sodium Chloride 50 ml @ 100 mls/hr 1X ONCE IV Last administered on 01/23/18at 17:57; Start 01/23/18 at 17:30; Stop 01/23/18 at 17 :59; Status DC Acetaminophen (Tylenol) 650 mg PRN Q4HRS PO ; Start 01/23/18 at 17:15; Status UNV Amlodipine Besylate (Norvasc) 10 mg BID PO Last administered on 01/25/18at 09: 27; Start 01/23/18 at 21:00; Stop 01/25/18 at 16:22; Status DC Ascorbic Acid (Vitamin C) 500 mg DAILY PO Last administered on 02/03/18 09:09 ; Start 01/24/18 at 09:00 Aspirin (Ecotrin) 81 mg DAILY PO Last administered on 02/03/18 09:09; Start 01/24/18 at 09:00 Clopidogrel Bisulfate (Plavix) 75 mg DAILY PO Last administered on 02/03/18 09 :09; Start 01/24/18 at 09:00 Glipizide (Glucotrol) 5 mg BIDAC PO Last administered on 02/03/18 17:16; Start 01/24/18 at 07:30 Lisinopril (Prinivil) 40 mg BID PO Last administered on 01/25/18 09:26; Start 01/23/18 at 21:00; Stop 01/25/18 at 16:23; Status DC Metoprolol Tartrate (Lopressor) 25 mg DAILY PO Last administered on 01/25/18 09:28; Start 01/24/18 at 09:00; Stop 01/25/18 at 16:22; Status DC Hydrochlorothiazide (Microzide) 12.5 mg DAILY PO Last administered on 09:09; Start 01/24/18 at 09:00 Levothyroxine Sodium (Synthroid) 25 mcg DAILY06 PO Last administered on 06:13; Start 01/24/18 at 06:00 Metformin HCl (Glucophage) 500 mg BIDWMEALS PO Last administered on 02/03/18 17:16; Start 01/23/18 at 18:00 Multivitamins/ Minerals (I-Erica) 1 tab DAILY PO Last administered on 02/03/18 09:09; Start 01/24/18 at 09:00 Sodium Chloride (Normal Saline Flush 3ml) 3 ml QSHIFT PRN IV AFTER MEDS AND BLOOD DRAWS; Start 01/23/18 at 17:30 Sodium Chloride 1,000 ml @ 100 mls/hr Q10H IV Last administered on 01/25/18at 06:11; Start 01/23/18 at 18:00; Stop 01/25/18 at 17:43; Status DC Ondansetron HCl (Zofran) 4 mg PRN Q4HRS PRN IV NAUSEA/VOMITING; Start at 17:30 Acetaminophen (Tylenol) 650 mg PRN Q4HRS PRN PO TEMP OVER 100.4F OR MILD PAIN; Start 01/23/18 at 17:30 Al Hydroxide/Mg Hydroxide (Mylanta Plus Xs) 30 ml PRN DAILY PRN PO HEARTBURN / GAS; Start 01/23/18 at 17:30 Sodium Monofluorophosphate (Fleet Adult) 133 ml PRN DAILY PRN RI CONSTIPATION; Start 01/23/18 at 17:30 Docusate Sodium (Colace) 100 mg PRN BID PRN PO CONSTIPATION Last administered on 01/28/18at 08:50; Start 01/23/18 at 17:30 Albuterol Sulfate (Ventolin Neb Soln) 2.5 mg PRN Q4HRS PRN NEB SHORTNESS OF BREATH; Start 01/23/18 at 17:30 Guaifenesin (Robitussin) 200 mg PRN Q4HRS PRN PO COUGH, 1ST CHOICE Last administered on 02/02/18at 16:43; Start 01/23/18 at 17:30 Enoxaparin Sodium (Lovenox 40mg Syringe) 40 mg DAILY SQ ; Start 01/24/18 at 09: 00 Vancomycin HCl 1 gm/Dextrose 250 ml @ 250 mls/hr 1X ONCE IV ; Start 01/23/18 at 17:30; Stop 01/23/18 at 18:29; Status UNV Vancomycin HCl (Vanco Per Pharmacy) 1 each PRN DAILY PRN MC SEE COMMENTS; Start 01/23/18 at 17:30; Status UNV Acetaminophen/ Hydrocodone Bitart (Lortab 5/325) 1 tab PRN Q6HRS PRN PO MOD TO SEVERE PAIN; Start 01/23/18 at 18:30 Vancomycin HCl 1.25 gm/Sodium Chloride 250 ml @ 250 mls/hr Q18H IV Last administered on 01/25/18at 07:25; Start 01/24/18 at 12:00; Stop 01/25/18 at 09 :00; Status DC Vancomycin HCl (Vancomycin Trough Level) 1 each 1X ONCE MC Last administered on 01/25/18at 06:30; Start 01/25/18 at 05:30; Stop 01/25/18 at 05:31; Status DC Lactobacillus Rhamnosus (Culturelle) 1 cap BID PO Last administered on at 20:48; Start 01/24/18 at 21:00 Vancomycin HCl 1.25 gm/Sodium Chloride 250 ml @ 250 mls/hr Q12H IV Last administered on 01/26/18at 19:59; Start 01/25/18 at 20:00; Stop 01/27/18 at 08 :54; Status DC Amlodipine Besylate (Norvasc) 10 mg DAILY PO Last administered on 02/03/18at 09: 10; Start 01/26/18 at 09:00 Lisinopril (Prinivil) 40 mg DAILY PO Last administered on 01/28/18at 08:55; Start 01/26/18 at 09:00; Stop 01/28/18 at 13:54; Status DC Vancomycin HCl (Vancomycin Trough Level) 1 each 1X ONCE MC ; Start 01/27/18 at 07:30; Stop 01/27/18 at 07:31; Status DC Ondansetron HCl (Zofran) 4 mg PRN Q6HRS PRN IV NAUSEA/VOMITING; Start at 07:00; Stop 01/30/18 at 06:59; Status DC Fentanyl Citrate (Fentanyl 2ml Vial) 25 mcg PRN Q5MIN PRN IV MILD PAIN; Start 01/29/18 at 07:00; Stop 01/30/18 at 06:59; Status DC Fentanyl Citrate (Fentanyl 2ml Vial) 50 mcg PRN Q5MIN PRN IV MODERATE TO SEVERE PAIN Last administered on 01/29/18at 14:24; Start 01/29/18 at 07:00; Stop 01/30/18 at 06:59; Status DC Morphine Sulfate (Morphine Sulfate) 1 mg PRN Q10MIN PRN IV SEVERE PAIN; Start 01/29/18 at 07:00; Stop 01/30/18 at 06:59; Status DC Ringer's Solution 1,000 ml @ 30 mls/hr Q24H IV ; Start 01/29/18 at 07:00; Stop 01/29/18 at 18:59; Status DC Lidocaine HCl (Xylocaine-Mpf 1% 2ml Vial) 2 ml PRN 1X PRN ID PRIOR TO IV START ; Start 01/29/18 at 07:00; Stop 01/30/18 at 06:59; Status DC Hydromorphone HCl (Dilaudid) 0.5 mg PRN Q10MIN PRN IV SEV PAIN, Second choice; Start 01/29/18 at 07:00; Stop 01/30/18 at 06:59; Status DC Prochlorperazine Edisylate (Compazine) 5 mg PACU PRN PRN IV NAUSEA, MRX1; Start 01/29/18 at 07:00; Stop 01/30/18 at 06:59; Status DC Vancomycin HCl (Vancomycin Random Level) 1 each 1X ONCE MC Last administered on 01/27/18at 19:00; Start 01/27/18 at 19:00; Stop 01/27/18 at 19:01; Status DC Benzonatate (Tessalon Perle) 100 mg [id number] PO Last administered on 02/03/18at 20 :48; Start 01/27/18 at 14:00 Vancomycin HCl 1.25 gm/Sodium Chloride 250 ml @ 166.667 mls/hr Q18H IV Last administered on 01/30/18at 22:00; Start 01/27/18 at 22:00; Stop 01/31/18 at 11 :02; Status DC Promethazine HCl/ Codeine (Phenergan With Codeine Oral Syrup) 5 ml PRN Q4HRS PRN PO COUGH 2ND CHOICE Last administered on 01/29/18at 19:09; Start 01/28/18 at 14:00 Propofol 20 ml @ As Directed STK-MED ONCE IV ; Start 01/29/18 at 12:42; Stop 01/29/18 at 12:43; Status DC Dexamethasone Sodium Phosphate (Decadron) 20 mg STK-MED ONCE .ROUTE ; Start at 12:42; Stop 01/29/18 at 12:43; Status DC Famotidine (Pepcid Vial) 20 mg STK-MED ONCE .ROUTE ; Start 01/29/18 at 12:42; Stop 01/29/18 at 12:43; Status DC Lidocaine HCl (Lidocaine Pf 2% Vial) 5 ml STK-MED ONCE .ROUTE ; Start 01/29/18 at 12:42; Stop 01/29/18 at 12:43; Status DC Ondansetron HCl (Zofran) 4 mg STK-MED ONCE .ROUTE ; Start 01/29/18 at 12:42; Stop 01/29/18 at 12:43; Status DC Fentanyl Citrate (Fentanyl 2ml Vial) 100 mcg STK-MED ONCE .ROUTE ; Start at 12:42; Stop 01/29/18 at 12:43; Status DC Midazolam HCl (Versed) 2 mg STK-MED ONCE .ROUTE ; Start 01/29/18 at 12:42; Stop 01/29/18 at 12:43; Status DC Cefazolin Sodium 1 gm/Sodium Chloride 250 ml @ 250 mls/hr 1X ONCE IV ; Start 01/29/18 at 13:00; Stop 01/29/18 at 13:59; Status DC Famotidine (Pepcid Vial) 20 mg STK-MED ONCE .ROUTE ; Start 01/29/18 at 13:07; Stop 01/29/18 at 13:08; Status DC Ephedrine Sulfate (ePHEDrine PF IN SALINE SYRINGE) 50 mg STK-MED ONCE IV ; Start 01/29/18 at 13:42; Stop 01/29/18 at 13:43; Status DC Fentanyl Citrate (Fentanyl 2ml Vial) 100 mcg STK-MED ONCE .ROUTE ; Start at 14:21; Stop 01/29/18 at 14:22; Status DC Insulin Human Lispro (HumaLOG) 20 units 1X ONCE SQ Last administered on at 22:38; Start 01/29/18 at 23:00; Stop 01/29/18 at 23:01; Status DC Vancomycin HCl (Vancomycin Trough Level) 1 each 1X ONCE MC Last administered on 01/30/18at 21:30; Start 01/30/18 at 21:30; Stop 01/30/18 at 21:31; Status DC Lidocaine/Sodium Bicarbonate (Buffered Lidocaine 1%) 6 ml 1X ONCE INJ Last administered on 01/31/18at 13:45; Start 01/31/18 at 13:30; Stop 01/31/18 at 13 :31; Status DC Lidocaine/Sodium Bicarbonate (Buffered Lidocaine 1%) 3 ml STK-MED ONCE .ROUTE ; Start 01/31/18 at 13:11; Stop 02/01/18 at 11:15; Status DC Meropenem 1 gm/ Sodium Chloride 100 ml @ 200 mls/hr Q12HR IV Last administered on 02/03/18at 20:48; Start 02/01/18 at 21:00 Active Scripts Active Reported Remedy Phytoplex Antifungal (Miconazole Nitrate) 85 Gm Powder 1 Alia TP DAILY Loratadine 10 Mg Tablet 10 Mg PO DAILY Ascorbic Acid 500 Mg Tablet 500 Mg PO BID Hydrochlorothiazide Capsule (Hydrochlorothiazide) 12.5 Mg Capsule 12.5 Mg PO DAILY Glipizide 5 Mg Tablet 1 Tab PO BIDWMEALS Clopidogrel (Clopidogrel Bisulfate) 75 Mg Tablet 75 Mg PO DAILY Tylenol (Acetaminophen) 325 Mg Tablet 325 Mg PO PRN Q4HRS Metformin Hcl 500 Mg Tablet 500 Mg PO BIDWMEALS Lisinopril 20 Mg Tablet 40 Tab PO DAILY Levothyroxine Sodium 25 Mcg Tablet 25 Mcg PO DAILY Aspir 81 (Aspirin) 81 Mg Tablet.dr 81 Mg PO DAILY Amlodipine Besylate 5 Mg Tablet 10 Mg PO DAILY Vitals/I & O Vital Sign - Last 24 Hours 02/03/18 02/03/18 02/03/18 02/03/18 08:00 09:10 11:00 15:00 Temp 97.4 97.9 97.4 97.9 Pulse 75 76 83 Resp 18 16 B/P (MAP) 123/75 116/71 (86) 139/85 (103) Pulse Ox 99 98 O2 Delivery Room Air Room Air Room Air 02/03/18 02/03/18 02/04/18 19:00 20:00 03:00 Temp 97.8 98.2 97.8 98.2 Pulse 91 72 Resp 18 18 B/P (MAP) 118/65 (82) 129/69 (89) Pulse Ox 96 98 O2 Delivery Room Air Room Air Room Air Intake and Output 02/03/18 02/03/18 02/04/18 15:00 23:00 07:00 Intake Total 400 ml Balance 400 ml PRECIOUS GRUBBS MD Feb 04, 2018 07:21
[2018-02-04] MEDS: INSULIN LISPRO 300 UNITS/3 ML INSULN.PEN. SQ SCH ×3 (08:00→17:13)
[2018-02-04] MEDS: ENOXAPARIN 40 MG/0.4 ML SYRINGE. SQ SCH (09:00)
[2018-02-04] MEDS: metFORMIN 500 MG TABLET PO SCH ×2 (09:02→17:10)
[2018-02-04] MEDS: glipiZIDE 5 MG TABLET PO SCH ×2 (09:02→17:10)
[2018-02-04] MEDS: CLOPIDOGREL BISULFATE 75 MG TABLET PO SCH (09:02)
[2018-02-04] MEDS: ASCORBIC ACID 500 MG TABLET PO SCH (09:02)
[2018-02-04] MEDS: hydroCHLOROthiazide 12.5 MG CAPSULE PO SCH (09:02)
[2018-02-04] MEDS: ASPIRIN ENTERIC COATED 81 MG TABLET.DR. PO SCH (09:02)
[2018-02-04] MEDS: LACTOBACILLUS RHAMNOSUS GG 1 CAPSULE. PO SCH ×2 (09:03→20:20)
[2018-02-04] MEDS: MULTIVITAMIN I-VITE TABLET. PO SCH (09:03)
[2018-02-04] MEDS: MEROPENEM 1 GM in IV NORMAL SALINE 100ML 100 ML IV SCH ×2 (09:03→20:21)
[2018-02-04] MEDS: amLODIPine BESYLATE 10 MG TABLET PO SCH (09:03)
[2018-02-04] MEDS: BENZONATATE 100 MG CAPSULE. PO SCH ×3 (09:03→20:20)
[2018-02-04 11:25] VITALS: BP 115/68
[2018-02-04 15:55] VITALS: BP 132/71
[2018-02-04 19:00] VITALS: BP 133/78
[2018-02-04] MEDS: guaiFENesin ORAL 200 MG/10 ML LIQUID. PO PRN (19:49)
[2018-02-04 23:00] VITALS: BP 107/69
[2018-02-05 03:00] VITALS: BP 138/71
[2018-02-05] MEDS: LEVOTHYROXINE 25 MCG TABLET. PO SCH (05:43)
[2018-02-05 06:04] LABS: BASO # 0.2 x10^3/uL (0.0-0.2); BASO % 3 % (0-3); EOS # 1.1 x10^3/uL (0.0-0.7); EOS % 11 % (0-3); HEMATOCRIT 32.5 % (39.0-53.0); HEMOGLOBIN 11.5 g/dL (13.0-17.5); LYMPH % 31 % (24-48); MEAN CORPUSCULAR HEMOGLOBIN 32 pg (25-35); MEAN CORPUSCULAR HGB CONC 36 g/dL (31-37); MEAN CORPUSCULAR VOLUME 90 fL (79-100); MONO # 0.9 x10^3/uL (0.0-1.1); MONO % 9 % (0-9); NEUT # 4.5 x10^3uL (1.8-7.7); NEUT % 46 % (31-73); PLATELET COUNT 196 x10^3/uL (140-400); RED BLOOD COUNT 3.61 x10^6/uL (4.30-5.70); RED CELL DISTRIBUTION WIDTH 13.6 % (11.5-14.5); WHITE BLOOD COUNT 9.6 x10^3/uL (4.0-11.0)
[2018-02-05 06:34] LABS: CREATININE 1.1 mg/dL (0.7-1.3); POTASSIUM 4.3 mmol/L (3.5-5.1)
[2018-02-05 07:00] VITALS: BP 116/72
[2018-02-05] MEDS: MULTIVITAMIN I-VITE TABLET. PO SCH (07:53)
[2018-02-05] MEDS: ASCORBIC ACID 500 MG TABLET PO SCH (07:53)
[2018-02-05] MEDS: ASPIRIN ENTERIC COATED 81 MG TABLET.DR. PO SCH (07:53)
[2018-02-05] MEDS: DOCUSATE SODIUM 100 MG CAPSULE. PO PRN (07:53)
[2018-02-05] MEDS: glipiZIDE 5 MG TABLET PO SCH ×2 (07:53→17:45)
[2018-02-05] MEDS: CLOPIDOGREL BISULFATE 75 MG TABLET PO SCH (07:53)
[2018-02-05] MEDS: LACTOBACILLUS RHAMNOSUS GG 1 CAPSULE. PO SCH ×2 (07:53→21:05)
[2018-02-05] MEDS: hydroCHLOROthiazide 12.5 MG CAPSULE PO SCH (07:53)
[2018-02-05] MEDS: metFORMIN 500 MG TABLET PO SCH ×2 (07:53→17:45)
[2018-02-05] MEDS: amLODIPine BESYLATE 10 MG TABLET PO SCH (07:54)
[2018-02-05] MEDS: ENOXAPARIN 40 MG/0.4 ML SYRINGE. SQ SCH ×2 (07:55→08:56)
[2018-02-05] MEDS: BENZONATATE 100 MG CAPSULE. PO SCH ×3 (07:55→21:06)
[2018-02-05] MEDS: INSULIN LISPRO 300 UNITS/3 ML INSULN.PEN. SQ SCH ×3 (08:00→16:14)
[2018-02-05] MEDS: MEROPENEM 1 GM in IV NORMAL SALINE 100ML 100 ML IV SCH ×2 (10:28→21:06)
[2018-02-05 11:00] VITALS: BP 134/55
[2018-02-05 15:00] VITALS: BP 146/87
--- NOTE | 2018-02-05 15:26 | PDOC ---
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) plan: fu with id, on meropenum bid fu with vascular, on wound vac talked to SW, need a place to go for wound vac and iv abx for total 6ws cont current meds History of Present Illness History of Present Illness Pt seen and examined while sitting on the side of bed. Pt continues to be very pleasant to talk with. He complains of no pain. He is not oriented currently, however. Discussed w/RN Vitals Vitals Vital Signs Date Time Temp Pulse Resp B/P (MAP) Pulse Ox O2 Delivery O2 Flow Rate FiO2 02/05/18 15:00 97.3 90 18 146/87 (106) 98 Room Air 97.3 Physical Exam Physical Exam HEENT: Mucus membranes moist Neck: Supple, No JVD General: Alert, Cooperative, No acute distress, Other Heart: Regular rate, Normal S1, Normal S2, No murmurs Lungs: Clear Abdomen: Soft, No tenderness Extremities: Other (Left foot bandages clean, dry and intact) Skin: No rashes Labs LABS Laboratory Tests Test 02/04/18 16:22 02/04/18 20:42 02/05/18 05:45 02/05/18 07:13 Glucose (Fingerstick) 174 mg/dL (70-99) 184 mg/dL (70-99) 132 mg/dL (70-99) White Blood Count 9.6 x10^3/uL (4.0-11.0) Red Blood Count 3.61 x10^6/uL (4.30-5.70) Hemoglobin 11.5 g/dL (13.0-17.5) Hematocrit 32.5 % (39.0-53.0) Mean Corpuscular Volume 90 fL (79-100) Mean Corpuscular Hemoglobin 32 pg (25-35) Mean Corpuscular Hemoglobin Concent 36 g/dL (31-37) Red Cell Distribution Width 13.6 % (11.5-14.5) Platelet Count 196 x10^3/uL (140-400) Neutrophils (%) (Auto) 46 % (31-73) Lymphocytes (%) (Auto) 31 % (24-48) Monocytes (%) (Auto) 9 % (0-9) Eosinophils (%) (Auto) 11 % (0-3) Basophils (%) (Auto) 3 % (0-3) Neutrophils # (Auto) 4.5 x10^3uL (1.8-7.7) Lymphocytes # (Auto) 3.0 x10^3/uL (1.0-4.8) Monocytes # (Auto) 0.9 x10^3/uL (0.0-1.1) Eosinophils # (Auto) 1.1 x10^3/uL (0.0-0.7) Basophils # (Auto) 0.2 x10^3/uL (0.0-0.2) Sodium Level 142 mmol/L (136-145) Potassium Level 4.3 mmol/L (3.5-5.1) Chloride Level 105 mmol/L (98-107) Carbon Dioxide Level 27 mmol/L (21-32) Anion Gap 10 (6-14) Blood Urea Nitrogen 44 mg/dL (8-26) Creatinine 1.1 mg/dL (0.7-1.3) Estimated GFR (Cockcroft-Gault) 67.0 Glucose Level 133 mg/dL (70-99) Calcium Level 8.0 mg/dL (8.5-10.1) Test 02/05/18 10:53 Glucose (Fingerstick) 172 mg/dL (70-99) Comment Review of Relevant I have reviewed the following items billy (where applicable) has been applied. Labs Laboratory Tests Test 02/03/18 16:42 02/03/18 21:07 02/04/18 06:10 02/04/18 07:35 Glucose (Fingerstick) 202 mg/dL (70-99) 222 mg/dL (70-99) 124 mg/dL (70-99) White Blood Count 9.8 x10^3/uL (4.0-11.0) Red Blood Count 3.69 x10^6/uL (4.30-5.70) Hemoglobin 12.0 g/dL (13.0-17.5) Hematocrit 33.2 % (39.0-53.0) Mean Corpuscular Volume 90 fL (79-100) Mean Corpuscular Hemoglobin 33 pg (25-35) Mean Corpuscular Hemoglobin Concent 36 g/dL (31-37) Red Cell Distribution Width 13.7 % (11.5-14.5) Platelet Count 204 x10^3/uL (140-400) Neutrophils (%) (Auto) 45 % (31-73) Lymphocytes (%) (Auto) 32 % (24-48) Monocytes (%) (Auto) 10 % (0-9) Eosinophils (%) (Auto) 12 % (0-3) Basophils (%) (Auto) 2 % (0-3) Neutrophils # (Auto) 4.4 x10^3uL (1.8-7.7) Lymphocytes # (Auto) 3.1 x10^3/uL (1.0-4.8) Monocytes # (Auto) 1.0 x10^3/uL (0.0-1.1) Eosinophils # (Auto) 1.2 x10^3/uL (0.0-0.7) Basophils # (Auto) 0.1 x10^3/uL (0.0-0.2) Sodium Level 141 mmol/L (136-145) Potassium Level 4.4 mmol/L (3.5-5.1) Chloride Level 105 mmol/L (98-107) Carbon Dioxide Level 28 mmol/L (21-32) Anion Gap 8 (6-14) Blood Urea Nitrogen 49 mg/dL (8-26) Creatinine 1.0 mg/dL (0.7-1.3) Estimated GFR (Cockcroft-Gault) 74.8 Glucose Level 129 mg/dL (70-99) Calcium Level 8.1 mg/dL (8.5-10.1) Test 02/04/18 10:37 02/04/18 16:22 02/04/18 20:42 02/05/18 05:45 Glucose (Fingerstick) 242 mg/dL (70-99) 174 mg/dL (70-99) 184 mg/dL (70-99) White Blood Count 9.6 x10^3/uL (4.0-11.0) Red Blood Count 3.61 x10^6/uL (4.30-5.70) Hemoglobin 11.5 g/dL (13.0-17.5) Hematocrit 32.5 % (39.0-53.0) Mean Corpuscular Volume 90 fL (79-100) Mean Corpuscular Hemoglobin 32 pg (25-35) Mean Corpuscular Hemoglobin Concent 36 g/dL (31-37) Red Cell Distribution Width 13.6 % (11.5-14.5) Platelet Count 196 x10^3/uL (140-400) Neutrophils (%) (Auto) 46 % (31-73) Lymphocytes (%) (Auto) 31 % (24-48) Monocytes (%) (Auto) 9 % (0-9) Eosinophils (%) (Auto) 11 % (0-3) Basophils (%) (Auto) 3 % (0-3) Neutrophils # (Auto) 4.5 x10^3uL (1.8-7.7) Lymphocytes # (Auto) 3.0 x10^3/uL (1.0-4.8) Monocytes # (Auto) 0.9 x10^3/uL (0.0-1.1) Eosinophils # (Auto) 1.1 x10^3/uL (0.0-0.7) Basophils # (Auto) 0.2 x10^3/uL (0.0-0.2) Sodium Level 142 mmol/L (136-145) Potassium Level 4.3 mmol/L (3.5-5.1) Chloride Level 105 mmol/L (98-107) Carbon Dioxide Level 27 mmol/L (21-32) Anion Gap 10 (6-14) Blood Urea Nitrogen 44 mg/dL (8-26) Creatinine 1.1 mg/dL (0.7-1.3) Estimated GFR (Cockcroft-Gault) 67.0 Glucose Level 133 mg/dL (70-99) Calcium Level 8.0 mg/dL (8.5-10.1) Test 02/05/18 07:13 02/05/18 10:53 Glucose (Fingerstick) 132 mg/dL (70-99) 172 mg/dL (70-99) Laboratory Tests Test 02/04/18 16:22 02/04/18 20:42 02/05/18 05:45 02/05/18 07:13 Glucose (Fingerstick) 174 mg/dL (70-99) 184 mg/dL (70-99) 132 mg/dL (70-99) White Blood Count 9.6 x10^3/uL (4.0-11.0) Red Blood Count 3.61 x10^6/uL (4.30-5.70) Hemoglobin 11.5 g/dL (13.0-17.5) Hematocrit 32.5 % (39.0-53.0) Mean Corpuscular Volume 90 fL (79-100) Mean Corpuscular Hemoglobin 32 pg (25-35) Mean Corpuscular Hemoglobin Concent 36 g/dL (31-37) Red Cell Distribution Width 13.6 % (11.5-14.5) Platelet Count 196 x10^3/uL (140-400) Neutrophils (%) (Auto) 46 % (31-73) Lymphocytes (%) (Auto) 31 % (24-48) Monocytes (%) (Auto) 9 % (0-9) Eosinophils (%) (Auto) 11 % (0-3) Basophils (%) (Auto) 3 % (0-3) Neutrophils # (Auto) 4.5 x10^3uL (1.8-7.7) Lymphocytes # (Auto) 3.0 x10^3/uL (1.0-4.8) Monocytes # (Auto) 0.9 x10^3/uL (0.0-1.1) Eosinophils # (Auto) 1.1 x10^3/uL (0.0-0.7) Basophils # (Auto) 0.2 x10^3/uL (0.0-0.2) Sodium Level 142 mmol/L (136-145) Potassium Level 4.3 mmol/L (3.5-5.1) Chloride Level 105 mmol/L (98-107) Carbon Dioxide Level 27 mmol/L (21-32) Anion Gap 10 (6-14) Blood Urea Nitrogen 44 mg/dL (8-26) Creatinine 1.1 mg/dL (0.7-1.3) Estimated GFR (Cockcroft-Gault) 67.0 Glucose Level 133 mg/dL (70-99) Calcium Level 8.0 mg/dL (8.5-10.1) Test 02/05/18 10:53 Glucose (Fingerstick) 172 mg/dL (70-99) Microbiology 01/23/18 Blood Culture - Final, Complete NO GROWTH AFTER 5 DAYS 01/23/18 Urine Culture - Final, Complete 01/23/18 Urine Culture Result 1 (ILDA) - Final, Complete 01/29/18 Anaerobic/Aerobic Culture - Final, Complete 01/29/18 Anaerobic Culture Result 1 (ILDA) - Final, Complete 01/29/18 Aerobic Culture - Final, Complete 01/29/18 Aerobic Culture Result 1 (ILDA) - Final, Complete 01/29/18 Gram Stain - Final, Complete 01/29/18 Gram Stain Result 1 (ILDA) - Final, Complete 01/29/18 Gram Stain Result 2 (ILDA) - Final, Complete Medications Current Medications Vancomycin HCl (Vanco Per Pharmacy) 1 each PRN DAILY PRN MC SEE COMMENTS Last administered on 01/31/18at 01:48; Start 01/23/18 at 17:15; Stop 01/31/18 at 11 :02; Status DC Meropenem 500 mg/ Sodium Chloride 50 ml @ 100 mls/hr Q8HRS IV Last administered on 02/01/18at 05:54; Start 01/23/18 at 22:00; Stop 02/01/18 at 13: 56; Status DC Sodium Chloride 1,000 ml @ 75 mls/hr [id number] IV ; Start 01/23/18 at 17:15; Status Cancel Insulin Human Lispro (HumaLOG) 0-5 UNITS TIDWMEALS SQ Last administered on 02/05at 13:46; Start 01/23/18 at 17:30 Dextrose (Dextrose 50%-Water Syringe) 12.5 gm PRN Q15MIN PRN IV SEE COMMENTS; Start 01/23/18 at 17:15 Vancomycin HCl 1.75 gm/Sodium Chloride 500 ml @ 250 mls/hr 1X ONCE IV Last administered on 01/23/18at 17:58; Start 01/23/18 at 17:30; Stop 01/23/18 at 19 :29; Status DC Meropenem 500 mg/ Sodium Chloride 50 ml @ 100 mls/hr 1X ONCE IV Last administered on 01/23/18at 17:57; Start 01/23/18 at 17:30; Stop 01/23/18 at 17 :59; Status DC Acetaminophen (Tylenol) 650 mg PRN Q4HRS PO ; Start 01/23/18 at 17:15; Status UNV Amlodipine Besylate (Norvasc) 10 mg BID PO Last administered on 01/25/18 09: 27; Start 01/23/18 at 21:00; Stop 01/25/18 at 16:22; Status DC Ascorbic Acid (Vitamin C) 500 mg DAILY PO Last administered on 02/05/18 07:53 ; Start 01/24/18 at 09:00 Aspirin (Ecotrin) 81 mg DAILY PO Last administered on 02/05/18 07:53; Start 01/24/18 at 09:00 Clopidogrel Bisulfate (Plavix) 75 mg DAILY PO Last administered on 02/05/18 07 :53; Start 01/24/18 at 09:00 Glipizide (Glucotrol) 5 mg BIDAC PO Last administered on 02/05/18 07:53; Start 01/24/18 at 07:30 Lisinopril (Prinivil) 40 mg BID PO Last administered on 01/25/18 09:26; Start 01/23/18 at 21:00; Stop 01/25/18 at 16:23; Status DC Metoprolol Tartrate (Lopressor) 25 mg DAILY PO Last administered on 01/25/18 09:28; Start 01/24/18 at 09:00; Stop 01/25/18 at 16:22; Status DC Hydrochlorothiazide (Microzide) 12.5 mg DAILY PO Last administered on 07:53; Start 01/24/18 at 09:00 Levothyroxine Sodium (Synthroid) 25 mcg DAILY06 PO Last administered on at 05:43; Start 01/24/18 at 06:00 Metformin HCl (Glucophage) 500 mg BIDWMEALS PO Last administered on 02/05/18 07:53; Start 01/23/18 at 18:00 Multivitamins/ Minerals (I-Erica) 1 tab DAILY PO Last administered on 02/05/18 07:53; Start 01/24/18 at 09:00 Sodium Chloride (Normal Saline Flush 3ml) 3 ml QSHIFT PRN IV AFTER MEDS AND BLOOD DRAWS; Start 01/23/18 at 17:30 Sodium Chloride 1,000 ml @ 100 mls/hr Q10H IV Last administered on 01/25/18at 06:11; Start 01/23/18 at 18:00; Stop 01/25/18 at 17:43; Status DC Ondansetron HCl (Zofran) 4 mg PRN Q4HRS PRN IV NAUSEA/VOMITING; Start at 17:30 Acetaminophen (Tylenol) 650 mg PRN Q4HRS PRN PO TEMP OVER 100.4F OR MILD PAIN; Start 01/23/18 at 17:30 Al Hydroxide/Mg Hydroxide (Mylanta Plus Xs) 30 ml PRN DAILY PRN PO HEARTBURN / GAS; Start 01/23/18 at 17:30 Sodium Monofluorophosphate (Fleet Adult) 133 ml PRN DAILY PRN PA CONSTIPATION; Start 01/23/18 at 17:30 Docusate Sodium (Colace) 100 mg PRN BID PRN PO CONSTIPATION Last administered on 02/05/18at 07:53; Start 01/23/18 at 17:30 Albuterol Sulfate (Ventolin Neb Soln) 2.5 mg PRN Q4HRS PRN NEB SHORTNESS OF BREATH; Start 01/23/18 at 17:30 Guaifenesin (Robitussin) 200 mg PRN Q4HRS PRN PO COUGH, 1ST CHOICE Last administered on 02/04/18at 19:49; Start 01/23/18 at 17:30 Enoxaparin Sodium (Lovenox 40mg Syringe) 40 mg DAILY SQ ; Start 01/24/18 at 09: 00 Vancomycin HCl 1 gm/Dextrose 250 ml @ 250 mls/hr 1X ONCE IV ; Start 01/23/18 at 17:30; Stop 01/23/18 at 18:29; Status UNV Vancomycin HCl (Vanco Per Pharmacy) 1 each PRN DAILY PRN MC SEE COMMENTS; Start 01/23/18 at 17:30; Status UNV Acetaminophen/ Hydrocodone Bitart (Lortab 5/325) 1 tab PRN Q6HRS PRN PO MOD TO SEVERE PAIN; Start 01/23/18 at 18:30 Vancomycin HCl 1.25 gm/Sodium Chloride 250 ml @ 250 mls/hr Q18H IV Last administered on 01/25/18at 07:25; Start 01/24/18 at 12:00; Stop 01/25/18 at 09 :00; Status DC Vancomycin HCl (Vancomycin Trough Level) 1 each 1X ONCE MC Last administered on 01/25/18at 06:30; Start 01/25/18 at 05:30; Stop 01/25/18 at 05:31; Status DC Lactobacillus Rhamnosus (Culturelle) 1 cap BID PO Last administered on at 07:53; Start 01/24/18 at 21:00 Vancomycin HCl 1.25 gm/Sodium Chloride 250 ml @ 250 mls/hr Q12H IV Last administered on 01/26/18at 19:59; Start 01/25/18 at 20:00; Stop 01/27/18 at 08 :54; Status DC Amlodipine Besylate (Norvasc) 10 mg DAILY PO Last administered on 02/05/18at 07: 54; Start 01/26/18 at 09:00 Lisinopril (Prinivil) 40 mg DAILY PO Last administered on 01/28/18at 08:55; Start 01/26/18 at 09:00; Stop 01/28/18 at 13:54; Status DC Vancomycin HCl (Vancomycin Trough Level) 1 each 1X ONCE MC ; Start 01/27/18 at 07:30; Stop 01/27/18 at 07:31; Status DC Ondansetron HCl (Zofran) 4 mg PRN Q6HRS PRN IV NAUSEA/VOMITING; Start at 07:00; Stop 01/30/18 at 06:59; Status DC Fentanyl Citrate (Fentanyl 2ml Vial) 25 mcg PRN Q5MIN PRN IV MILD PAIN; Start 01/29/18 at 07:00; Stop 01/30/18 at 06:59; Status DC Fentanyl Citrate (Fentanyl 2ml Vial) 50 mcg PRN Q5MIN PRN IV MODERATE TO SEVERE PAIN Last administered on 01/29/18at 14:24; Start 01/29/18 at 07:00; Stop 01/30/18 at 06:59; Status DC Morphine Sulfate (Morphine Sulfate) 1 mg PRN Q10MIN PRN IV SEVERE PAIN; Start 01/29/18 at 07:00; Stop 01/30/18 at 06:59; Status DC Ringer's Solution 1,000 ml @ 30 mls/hr Q24H IV ; Start 01/29/18 at 07:00; Stop 01/29/18 at 18:59; Status DC Lidocaine HCl (Xylocaine-Mpf 1% 2ml Vial) 2 ml PRN 1X PRN ID PRIOR TO IV START ; Start 01/29/18 at 07:00; Stop 01/30/18 at 06:59; Status DC Hydromorphone HCl (Dilaudid) 0.5 mg PRN Q10MIN PRN IV SEV PAIN, Second choice; Start 01/29/18 at 07:00; Stop 01/30/18 at 06:59; Status DC Prochlorperazine Edisylate (Compazine) 5 mg PACU PRN PRN IV NAUSEA, MRX1; Start 01/29/18 at 07:00; Stop 01/30/18 at 06:59; Status DC Vancomycin HCl (Vancomycin Random Level) 1 each 1X ONCE MC Last administered on 01/27/18at 19:00; Start 01/27/18 at 19:00; Stop 01/27/18 at 19:01; Status DC Benzonatate (Tessalon Perle) 100 mg [id number] PO Last administered on 02/04/18at 20 :20; Start 01/27/18 at 14:00 Vancomycin HCl 1.25 gm/Sodium Chloride 250 ml @ 166.667 mls/hr Q18H IV Last administered on 01/30/18at 22:00; Start 01/27/18 at 22:00; Stop 01/31/18 at 11 :02; Status DC Promethazine HCl/ Codeine (Phenergan With Codeine Oral Syrup) 5 ml PRN Q4HRS PRN PO COUGH 2ND CHOICE Last administered on 01/29/18at 19:09; Start 01/28/18 at 14:00 Propofol 20 ml @ As Directed STK-MED ONCE IV ; Start 01/29/18 at 12:42; Stop 01/29/18 at 12:43; Status DC Dexamethasone Sodium Phosphate (Decadron) 20 mg STK-MED ONCE .ROUTE ; Start at 12:42; Stop 01/29/18 at 12:43; Status DC Famotidine (Pepcid Vial) 20 mg STK-MED ONCE .ROUTE ; Start 01/29/18 at 12:42; Stop 01/29/18 at 12:43; Status DC Lidocaine HCl (Lidocaine Pf 2% Vial) 5 ml STK-MED ONCE .ROUTE ; Start 01/29/18 at 12:42; Stop 01/29/18 at 12:43; Status DC Ondansetron HCl (Zofran) 4 mg STK-MED ONCE .ROUTE ; Start 01/29/18 at 12:42; Stop 01/29/18 at 12:43; Status DC Fentanyl Citrate (Fentanyl 2ml Vial) 100 mcg STK-MED ONCE .ROUTE ; Start at 12:42; Stop 01/29/18 at 12:43; Status DC Midazolam HCl (Versed) 2 mg STK-MED ONCE .ROUTE ; Start 01/29/18 at 12:42; Stop 01/29/18 at 12:43; Status DC Cefazolin Sodium 1 gm/Sodium Chloride 250 ml @ 250 mls/hr 1X ONCE IV ; Start 01/29/18 at 13:00; Stop 01/29/18 at 13:59; Status DC Famotidine (Pepcid Vial) 20 mg STK-MED ONCE .ROUTE ; Start 01/29/18 at 13:07; Stop 01/29/18 at 13:08; Status DC Ephedrine Sulfate (ePHEDrine PF IN SALINE SYRINGE) 50 mg STK-MED ONCE IV ; Start 01/29/18 at 13:42; Stop 01/29/18 at 13:43; Status DC Fentanyl Citrate (Fentanyl 2ml Vial) 100 mcg STK-MED ONCE .ROUTE ; Start at 14:21; Stop 01/29/18 at 14:22; Status DC Insulin Human Lispro (HumaLOG) 20 units 1X ONCE SQ Last administered on at 22:38; Start 01/29/18 at 23:00; Stop 01/29/18 at 23:01; Status DC Vancomycin HCl (Vancomycin Trough Level) 1 each 1X ONCE MC Last administered on 01/30/18at 21:30; Start 01/30/18 at 21:30; Stop 01/30/18 at 21:31; Status DC Lidocaine/Sodium Bicarbonate (Buffered Lidocaine 1%) 6 ml 1X ONCE INJ Last administered on 01/31/18at 13:45; Start 01/31/18 at 13:30; Stop 01/31/18 at 13 :31; Status DC Lidocaine/Sodium Bicarbonate (Buffered Lidocaine 1%) 3 ml STK-MED ONCE .ROUTE ; Start 01/31/18 at 13:11; Stop 02/01/18 at 11:15; Status DC Meropenem 1 gm/ Sodium Chloride 100 ml @ 200 mls/hr Q12HR IV Last administered on 02/05/18at 10:28; Start 02/01/18 at 21:00 Active Scripts Active Reported Remedy Phytoplex Antifungal (Miconazole Nitrate) 85 Gm Powder 1 Alia TP DAILY Loratadine 10 Mg Tablet 10 Mg PO DAILY Ascorbic Acid 500 Mg Tablet 500 Mg PO BID Hydrochlorothiazide Capsule (Hydrochlorothiazide) 12.5 Mg Capsule 12.5 Mg PO DAILY Glipizide 5 Mg Tablet 1 Tab PO BIDWMEALS Clopidogrel (Clopidogrel Bisulfate) 75 Mg Tablet 75 Mg PO DAILY Tylenol (Acetaminophen) 325 Mg Tablet 325 Mg PO PRN Q4HRS Metformin Hcl 500 Mg Tablet 500 Mg PO BIDWMEALS Lisinopril 20 Mg Tablet 40 Tab PO DAILY Levothyroxine Sodium 25 Mcg Tablet 25 Mcg PO DAILY Aspir 81 (Aspirin) 81 Mg Tablet.dr 81 Mg PO DAILY Amlodipine Besylate 5 Mg Tablet 10 Mg PO DAILY Vitals/I & O Vital Sign - Last 24 Hours 02/04/18 02/04/18 02/04/18 02/04/18 15:55 19:00 20:00 23:00 Temp 97.6 97.8 98.2 97.6 97.8 98.2 Pulse 80 54 71 Resp 18 18 18 B/P (MAP) 132/71 (91) 133/78 (96) 107/69 (82) Pulse Ox 98 97 96 O2 Delivery Room Air Room Air Room Air Room Air 02/05/18 02/05/18 02/05/18 02/05/18 03:00 07:00 07:54 11:00 Temp 98.8 97.4 97.8 98.8 97.4 97.8 Pulse 88 73 73 77 Resp 18 18 18 B/P (MAP) 138/71 (93) 116/72 (87) 116/72 134/55 (81) Pulse Ox 96 97 99 O2 Delivery Room Air Room Air Room Air 02/05/18 15:00 Temp 97.3 97.3 Pulse 90 Resp 18 B/P (MAP) 146/87 (106) Pulse Ox 98 O2 Delivery Room Air Intake and Output 02/04/18 02/04/18 02/05/18 15:00 23:00 07:00 Intake Total 400 ml 400 ml 400 ml Balance 400 ml 400 ml 400 ml CONRADO FUNK MD Feb 05, 2018 15:26
[2018-02-05 19:00] VITALS: BP 129/76
[2018-02-05 23:00] VITALS: BP 133/50
[2018-02-06 03:00] VITALS: BP 133/50
[2018-02-06 06:10] LABS: BASO # 0.1 x10^3/uL (0.0-0.2); BASO % 1 % (0-3); EOS # 1.1 x10^3/uL (0.0-0.7); EOS % 12 % (0-3); HEMATOCRIT 32.5 % (39.0-53.0); HEMOGLOBIN 11.8 g/dL (13.0-17.5); LYMPH # 3.1 x10^3/uL (1.0-4.8); LYMPH % 32 % (24-48); MEAN CORPUSCULAR HEMOGLOBIN 33 pg (25-35); MEAN CORPUSCULAR HGB CONC 36 g/dL (31-37); MEAN CORPUSCULAR VOLUME 90 fL (79-100); MONO % 10 % (0-9); NEUT # 4.5 x10^3uL (1.8-7.7); NEUT % 45 % (31-73); PLATELET COUNT 202 x10^3/uL (140-400); RED BLOOD COUNT 3.61 x10^6/uL (4.30-5.70); RED CELL DISTRIBUTION WIDTH 13.9 % (11.5-14.5); WHITE BLOOD COUNT 9.8 x10^3/uL (4.0-11.0)
[2018-02-06] MEDS: LEVOTHYROXINE 25 MCG TABLET. PO SCH (06:11)
[2018-02-06 06:31] LABS: CALCIUM 8.1 mg/dL (8.5-10.1); CREATININE 1.1 mg/dL (0.7-1.3); POTASSIUM 4.2 mmol/L (3.5-5.1)
[2018-02-06 07:10] VITALS: BP 121/75
[2018-02-06] MEDS: INSULIN LISPRO 300 UNITS/3 ML INSULN.PEN. SQ SCH ×3 (08:00→18:13)
[2018-02-06] MEDS: LACTOBACILLUS RHAMNOSUS GG 1 CAPSULE. PO SCH ×2 (08:05→21:05)
[2018-02-06] MEDS: ASCORBIC ACID 500 MG TABLET PO SCH (08:05)
[2018-02-06] MEDS: hydroCHLOROthiazide 12.5 MG CAPSULE PO SCH (08:05)
[2018-02-06] MEDS: glipiZIDE 5 MG TABLET PO SCH ×2 (08:05→16:07)
[2018-02-06] MEDS: MULTIVITAMIN I-VITE TABLET. PO SCH (08:05)
[2018-02-06] MEDS: metFORMIN 500 MG TABLET PO SCH ×2 (08:05→16:07)
[2018-02-06] MEDS: DOCUSATE SODIUM 100 MG CAPSULE. PO PRN (08:05)
[2018-02-06] MEDS: ENOXAPARIN 40 MG/0.4 ML SYRINGE. SQ SCH (08:06)
[2018-02-06] MEDS: BENZONATATE 100 MG CAPSULE. PO SCH (08:06)
[2018-02-06] MEDS: amLODIPine BESYLATE 10 MG TABLET PO SCH (08:06)
[2018-02-06] MEDS: CLOPIDOGREL BISULFATE 75 MG TABLET PO SCH (08:06)
[2018-02-06] MEDS: ASPIRIN ENTERIC COATED 81 MG TABLET.DR. PO SCH (08:06)
[2018-02-06] MEDS: MEROPENEM 1 GM in IV NORMAL SALINE 100ML 100 ML IV SCH ×2 (10:04→21:06)
[2018-02-06 11:00] VITALS: BP 130/71
[2018-02-06] MEDS ORDERED: BENZONATATE 100 MG CAPSULE. PO PRN (12:15)
--- NOTE | 2018-02-06 13:46 | PDOC ---
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) plan: fu with id, on meropenum bid fu with vascular, on wound vac talked to SW, need a place to go for wound vac and iv abx for total 6ws cont current meds History of Present Illness History of Present Illness Pt seen and examined while sitting on the side of bed. Pt continues to be very pleasant to talk with. He complains of no pain. He is not oriented currently, however. Discussed w/RN Vitals Vitals Vital Signs Date Time Temp Pulse Resp B/P (MAP) Pulse Ox O2 Delivery O2 Flow Rate FiO2 02/06/18 11:00 97.6 100 16 130/71 (90) 100 Room Air 97.6 Physical Exam Physical Exam HEENT: Mucus membranes moist Neck: Supple, No JVD General: Alert, Cooperative, No acute distress, Other Heart: Regular rate, Normal S1, Normal S2, No murmurs Lungs: Clear Abdomen: Soft, No tenderness Extremities: Other (Left foot bandages clean, dry and intact) Skin: No rashes Labs LABS Laboratory Tests Test 02/05/18 16:05 02/05/18 20:16 02/06/18 06:00 02/06/18 07:13 Glucose (Fingerstick) 148 mg/dL (70-99) 258 mg/dL (70-99) 125 mg/dL (70-99) White Blood Count 9.8 x10^3/uL (4.0-11.0) Red Blood Count 3.61 x10^6/uL (4.30-5.70) Hemoglobin 11.8 g/dL (13.0-17.5) Hematocrit 32.5 % (39.0-53.0) Mean Corpuscular Volume 90 fL (79-100) Mean Corpuscular Hemoglobin 33 pg (25-35) Mean Corpuscular Hemoglobin Concent 36 g/dL (31-37) Red Cell Distribution Width 13.9 % (11.5-14.5) Platelet Count 202 x10^3/uL (140-400) Neutrophils (%) (Auto) 45 % (31-73) Lymphocytes (%) (Auto) 32 % (24-48) Monocytes (%) (Auto) 10 % (0-9) Eosinophils (%) (Auto) 12 % (0-3) Basophils (%) (Auto) 1 % (0-3) Neutrophils # (Auto) 4.5 x10^3uL (1.8-7.7) Lymphocytes # (Auto) 3.1 x10^3/uL (1.0-4.8) Monocytes # (Auto) 1.0 x10^3/uL (0.0-1.1) Eosinophils # (Auto) 1.1 x10^3/uL (0.0-0.7) Basophils # (Auto) 0.1 x10^3/uL (0.0-0.2) Sodium Level 143 mmol/L (136-145) Potassium Level 4.2 mmol/L (3.5-5.1) Chloride Level 106 mmol/L (98-107) Carbon Dioxide Level 28 mmol/L (21-32) Anion Gap 9 (6-14) Blood Urea Nitrogen 44 mg/dL (8-26) Creatinine 1.1 mg/dL (0.7-1.3) Estimated GFR (Cockcroft-Gault) 67.0 Glucose Level 130 mg/dL (70-99) Calcium Level 8.1 mg/dL (8.5-10.1) Test 02/06/18 11:26 Glucose (Fingerstick) 183 mg/dL (70-99) Comment Review of Relevant I have reviewed the following items billy (where applicable) has been applied. Labs Laboratory Tests Test 02/04/18 16:22 02/04/18 20:42 02/05/18 05:45 02/05/18 07:13 Glucose (Fingerstick) 174 mg/dL (70-99) 184 mg/dL (70-99) 132 mg/dL (70-99) White Blood Count 9.6 x10^3/uL (4.0-11.0) Red Blood Count 3.61 x10^6/uL (4.30-5.70) Hemoglobin 11.5 g/dL (13.0-17.5) Hematocrit 32.5 % (39.0-53.0) Mean Corpuscular Volume 90 fL (79-100) Mean Corpuscular Hemoglobin 32 pg (25-35) Mean Corpuscular Hemoglobin Concent 36 g/dL (31-37) Red Cell Distribution Width 13.6 % (11.5-14.5) Platelet Count 196 x10^3/uL (140-400) Neutrophils (%) (Auto) 46 % (31-73) Lymphocytes (%) (Auto) 31 % (24-48) Monocytes (%) (Auto) 9 % (0-9) Eosinophils (%) (Auto) 11 % (0-3) Basophils (%) (Auto) 3 % (0-3) Neutrophils # (Auto) 4.5 x10^3uL (1.8-7.7) Lymphocytes # (Auto) 3.0 x10^3/uL (1.0-4.8) Monocytes # (Auto) 0.9 x10^3/uL (0.0-1.1) Eosinophils # (Auto) 1.1 x10^3/uL (0.0-0.7) Basophils # (Auto) 0.2 x10^3/uL (0.0-0.2) Sodium Level 142 mmol/L (136-145) Potassium Level 4.3 mmol/L (3.5-5.1) Chloride Level 105 mmol/L (98-107) Carbon Dioxide Level 27 mmol/L (21-32) Anion Gap 10 (6-14) Blood Urea Nitrogen 44 mg/dL (8-26) Creatinine 1.1 mg/dL (0.7-1.3) Estimated GFR (Cockcroft-Gault) 67.0 Glucose Level 133 mg/dL (70-99) Calcium Level 8.0 mg/dL (8.5-10.1) Test 02/05/18 10:53 02/05/18 16:05 02/05/18 20:16 02/06/18 06:00 Glucose (Fingerstick) 172 mg/dL (70-99) 148 mg/dL (70-99) 258 mg/dL (70-99) White Blood Count 9.8 x10^3/uL (4.0-11.0) Red Blood Count 3.61 x10^6/uL (4.30-5.70) Hemoglobin 11.8 g/dL (13.0-17.5) Hematocrit 32.5 % (39.0-53.0) Mean Corpuscular Volume 90 fL (79-100) Mean Corpuscular Hemoglobin 33 pg (25-35) Mean Corpuscular Hemoglobin Concent 36 g/dL (31-37) Red Cell Distribution Width 13.9 % (11.5-14.5) Platelet Count 202 x10^3/uL (140-400) Neutrophils (%) (Auto) 45 % (31-73) Lymphocytes (%) (Auto) 32 % (24-48) Monocytes (%) (Auto) 10 % (0-9) Eosinophils (%) (Auto) 12 % (0-3) Basophils (%) (Auto) 1 % (0-3) Neutrophils # (Auto) 4.5 x10^3uL (1.8-7.7) Lymphocytes # (Auto) 3.1 x10^3/uL (1.0-4.8) Monocytes # (Auto) 1.0 x10^3/uL (0.0-1.1) Eosinophils # (Auto) 1.1 x10^3/uL (0.0-0.7) Basophils # (Auto) 0.1 x10^3/uL (0.0-0.2) Sodium Level 143 mmol/L (136-145) Potassium Level 4.2 mmol/L (3.5-5.1) Chloride Level 106 mmol/L (98-107) Carbon Dioxide Level 28 mmol/L (21-32) Anion Gap 9 (6-14) Blood Urea Nitrogen 44 mg/dL (8-26) Creatinine 1.1 mg/dL (0.7-1.3) Estimated GFR (Cockcroft-Gault) 67.0 Glucose Level 130 mg/dL (70-99) Calcium Level 8.1 mg/dL (8.5-10.1) Test 02/06/18 07:13 02/06/18 11:26 Glucose (Fingerstick) 125 mg/dL (70-99) 183 mg/dL (70-99) Laboratory Tests Test 02/05/18 16:05 02/05/18 20:16 02/06/18 06:00 02/06/18 07:13 Glucose (Fingerstick) 148 mg/dL (70-99) 258 mg/dL (70-99) 125 mg/dL (70-99) White Blood Count 9.8 x10^3/uL (4.0-11.0) Red Blood Count 3.61 x10^6/uL (4.30-5.70) Hemoglobin 11.8 g/dL (13.0-17.5) Hematocrit 32.5 % (39.0-53.0) Mean Corpuscular Volume 90 fL (79-100) Mean Corpuscular Hemoglobin 33 pg (25-35) Mean Corpuscular Hemoglobin Concent 36 g/dL (31-37) Red Cell Distribution Width 13.9 % (11.5-14.5) Platelet Count 202 x10^3/uL (140-400) Neutrophils (%) (Auto) 45 % (31-73) Lymphocytes (%) (Auto) 32 % (24-48) Monocytes (%) (Auto) 10 % (0-9) Eosinophils (%) (Auto) 12 % (0-3) Basophils (%) (Auto) 1 % (0-3) Neutrophils # (Auto) 4.5 x10^3uL (1.8-7.7) Lymphocytes # (Auto) 3.1 x10^3/uL (1.0-4.8) Monocytes # (Auto) 1.0 x10^3/uL (0.0-1.1) Eosinophils # (Auto) 1.1 x10^3/uL (0.0-0.7) Basophils # (Auto) 0.1 x10^3/uL (0.0-0.2) Sodium Level 143 mmol/L (136-145) Potassium Level 4.2 mmol/L (3.5-5.1) Chloride Level 106 mmol/L (98-107) Carbon Dioxide Level 28 mmol/L (21-32) Anion Gap 9 (6-14) Blood Urea Nitrogen 44 mg/dL (8-26) Creatinine 1.1 mg/dL (0.7-1.3) Estimated GFR (Cockcroft-Gault) 67.0 Glucose Level 130 mg/dL (70-99) Calcium Level 8.1 mg/dL (8.5-10.1) Test 02/06/18 11:26 Glucose (Fingerstick) 183 mg/dL (70-99) Microbiology 01/23/18 Blood Culture - Final, Complete NO GROWTH AFTER 5 DAYS 01/23/18 Urine Culture - Final, Complete 01/23/18 Urine Culture Result 1 (ILDA) - Final, Complete 01/29/18 Fungal Culture - Preliminary, Resulted 01/29/18 Fungal Culture Result 1 - Preliminary, Resulted Medications Current Medications Vancomycin HCl (Vanco Per Pharmacy) 1 each PRN DAILY PRN MC SEE COMMENTS Last administered on 01/31/18at 01:48; Start 01/23/18 at 17:15; Stop 01/31/18 at 11 :02; Status DC Meropenem 500 mg/ Sodium Chloride 50 ml @ 100 mls/hr Q8HRS IV Last administered on 02/01/18at 05:54; Start 01/23/18 at 22:00; Stop 02/01/18 at 13: 56; Status DC Sodium Chloride 1,000 ml @ 75 mls/hr [id number] IV ; Start 01/23/18 at 17:15; Status Cancel Insulin Human Lispro (HumaLOG) 0-5 UNITS TIDWMEALS SQ Last administered on 02/05at 13:46; Start 01/23/18 at 17:30 Dextrose (Dextrose 50%-Water Syringe) 12.5 gm PRN Q15MIN PRN IV SEE COMMENTS; Start 01/23/18 at 17:15 Vancomycin HCl 1.75 gm/Sodium Chloride 500 ml @ 250 mls/hr 1X ONCE IV Last administered on 01/23/18at 17:58; Start 01/23/18 at 17:30; Stop 01/23/18 at 19 :29; Status DC Meropenem 500 mg/ Sodium Chloride 50 ml @ 100 mls/hr 1X ONCE IV Last administered on 01/23/18at 17:57; Start 01/23/18 at 17:30; Stop 01/23/18 at 17 :59; Status DC Acetaminophen (Tylenol) 650 mg PRN Q4HRS PO ; Start 01/23/18 at 17:15; Status UNV Amlodipine Besylate (Norvasc) 10 mg BID PO Last administered on 01/25/18at 09: 27; Start 01/23/18 at 21:00; Stop 01/25/18 at 16:22; Status DC Ascorbic Acid (Vitamin C) 500 mg DAILY PO Last administered on 02/06/18at 08:05 ; Start 01/24/18 at 09:00 Aspirin (Ecotrin) 81 mg DAILY PO Last administered on 02/06/18at 08:06; Start 01/24/18 at 09:00 Clopidogrel Bisulfate (Plavix) 75 mg DAILY PO Last administered on 02/06/18at 08 :06; Start 01/24/18 at 09:00 Glipizide (Glucotrol) 5 mg BIDAC PO Last administered on 02/06/18at 08:05; Start 01/24/18 at 07:30 Lisinopril (Prinivil) 40 mg BID PO Last administered on 01/25/18at 09:26; Start 01/23/18 at 21:00; Stop 01/25/18 at 16:23; Status DC Metoprolol Tartrate (Lopressor) 25 mg DAILY PO Last administered on 01/25/18at 09:28; Start 01/24/18 at 09:00; Stop 01/25/18 at 16:22; Status DC Hydrochlorothiazide (Microzide) 12.5 mg DAILY PO Last administered on at 08:05; Start 01/24/18 at 09:00 Levothyroxine Sodium (Synthroid) 25 mcg DAILY06 PO Last administered on at 06:11; Start 01/24/18 at 06:00 Metformin HCl (Glucophage) 500 mg BIDWMEALS PO Last administered on 02/06/18at 08:05; Start 01/23/18 at 18:00 Multivitamins/ Minerals (I-Erica) 1 tab DAILY PO Last administered on 02/06/18at 08:05; Start 01/24/18 at 09:00 Sodium Chloride (Normal Saline Flush 3ml) 3 ml QSHIFT PRN IV AFTER MEDS AND BLOOD DRAWS; Start 01/23/18 at 17:30 Sodium Chloride 1,000 ml @ 100 mls/hr Q10H IV Last administered on 01/25/18at 06:11; Start 01/23/18 at 18:00; Stop 01/25/18 at 17:43; Status DC Ondansetron HCl (Zofran) 4 mg PRN Q4HRS PRN IV NAUSEA/VOMITING; Start at 17:30 Acetaminophen (Tylenol) 650 mg PRN Q4HRS PRN PO TEMP OVER 100.4F OR MILD PAIN; Start 01/23/18 at 17:30 Al Hydroxide/Mg Hydroxide (Mylanta Plus Xs) 30 ml PRN DAILY PRN PO HEARTBURN / GAS; Start 01/23/18 at 17:30 Sodium Monofluorophosphate (Fleet Adult) 133 ml PRN DAILY PRN MA CONSTIPATION; Start 01/23/18 at 17:30 Docusate Sodium (Colace) 100 mg PRN BID PRN PO CONSTIPATION Last administered on 02/06/18at 08:05; Start 01/23/18 at 17:30 Albuterol Sulfate (Ventolin Neb Soln) 2.5 mg PRN Q4HRS PRN NEB SHORTNESS OF BREATH; Start 01/23/18 at 17:30 Guaifenesin (Robitussin) 200 mg PRN Q4HRS PRN PO COUGH, 1ST CHOICE Last administered on 02/04/18at 19:49; Start 01/23/18 at 17:30 Enoxaparin Sodium (Lovenox 40mg Syringe) 40 mg DAILY SQ ; Start 01/24/18 at 09: 00 Vancomycin HCl 1 gm/Dextrose 250 ml @ 250 mls/hr 1X ONCE IV ; Start 01/23/18 at 17:30; Stop 01/23/18 at 18:29; Status UNV Vancomycin HCl (Vanco Per Pharmacy) 1 each PRN DAILY PRN MC SEE COMMENTS; Start 01/23/18 at 17:30; Status UNV Acetaminophen/ Hydrocodone Bitart (Lortab 5/325) 1 tab PRN Q6HRS PRN PO MOD TO SEVERE PAIN; Start 01/23/18 at 18:30 Vancomycin HCl 1.25 gm/Sodium Chloride 250 ml @ 250 mls/hr Q18H IV Last administered on 01/25/18at 07:25; Start 01/24/18 at 12:00; Stop 01/25/18 at 09 :00; Status DC Vancomycin HCl (Vancomycin Trough Level) 1 each 1X ONCE MC Last administered on 01/25/18at 06:30; Start 01/25/18 at 05:30; Stop 01/25/18 at 05:31; Status DC Lactobacillus Rhamnosus (Culturelle) 1 cap BID PO Last administered on at 08:05; Start 01/24/18 at 21:00 Vancomycin HCl 1.25 gm/Sodium Chloride 250 ml @ 250 mls/hr Q12H IV Last administered on 01/26/18at 19:59; Start 01/25/18 at 20:00; Stop 01/27/18 at 08 :54; Status DC Amlodipine Besylate (Norvasc) 10 mg DAILY PO Last administered on 02/06/18at 08: 06; Start 01/26/18 at 09:00 Lisinopril (Prinivil) 40 mg DAILY PO Last administered on 01/28/18at 08:55; Start 01/26/18 at 09:00; Stop 01/28/18 at 13:54; Status DC Vancomycin HCl (Vancomycin Trough Level) 1 each 1X ONCE MC ; Start 01/27/18 at 07:30; Stop 01/27/18 at 07:31; Status DC Ondansetron HCl (Zofran) 4 mg PRN Q6HRS PRN IV NAUSEA/VOMITING; Start at 07:00; Stop 01/30/18 at 06:59; Status DC Fentanyl Citrate (Fentanyl 2ml Vial) 25 mcg PRN Q5MIN PRN IV MILD PAIN; Start 01/29/18 at 07:00; Stop 01/30/18 at 06:59; Status DC Fentanyl Citrate (Fentanyl 2ml Vial) 50 mcg PRN Q5MIN PRN IV MODERATE TO SEVERE PAIN Last administered on 01/29/18at 14:24; Start 01/29/18 at 07:00; Stop 01/30/18 at 06:59; Status DC Morphine Sulfate (Morphine Sulfate) 1 mg PRN Q10MIN PRN IV SEVERE PAIN; Start 01/29/18 at 07:00; Stop 01/30/18 at 06:59; Status DC Ringer's Solution 1,000 ml @ 30 mls/hr Q24H IV ; Start 01/29/18 at 07:00; Stop 01/29/18 at 18:59; Status DC Lidocaine HCl (Xylocaine-Mpf 1% 2ml Vial) 2 ml PRN 1X PRN ID PRIOR TO IV START ; Start 01/29/18 at 07:00; Stop 01/30/18 at 06:59; Status DC Hydromorphone HCl (Dilaudid) 0.5 mg PRN Q10MIN PRN IV SEV PAIN, Second choice; Start 01/29/18 at 07:00; Stop 01/30/18 at 06:59; Status DC Prochlorperazine Edisylate (Compazine) 5 mg PACU PRN PRN IV NAUSEA, MRX1; Start 01/29/18 at 07:00; Stop 01/30/18 at 06:59; Status DC Vancomycin HCl (Vancomycin Random Level) 1 each 1X ONCE MC Last administered on 01/27/18at 19:00; Start 01/27/18 at 19:00; Stop 01/27/18 at 19:01; Status DC Benzonatate (Tessalon Perle) 100 mg [id number] PO Last administered on 02/04/18at 20 :20; Start 01/27/18 at 14:00; Stop 02/06/18 at 12:09; Status DC Vancomycin HCl 1.25 gm/Sodium Chloride 250 ml @ 166.667 mls/hr Q18H IV Last administered on 01/30/18at 22:00; Start 01/27/18 at 22:00; Stop 01/31/18 at 11 :02; Status DC Promethazine HCl/ Codeine (Phenergan With Codeine Oral Syrup) 5 ml PRN Q4HRS PRN PO COUGH 2ND CHOICE Last administered on 01/29/18at 19:09; Start 01/28/18 at 14:00 Propofol 20 ml @ As Directed STK-MED ONCE IV ; Start 01/29/18 at 12:42; Stop 01/29/18 at 12:43; Status DC Dexamethasone Sodium Phosphate (Decadron) 20 mg STK-MED ONCE .ROUTE ; Start at 12:42; Stop 01/29/18 at 12:43; Status DC Famotidine (Pepcid Vial) 20 mg STK-MED ONCE .ROUTE ; Start 01/29/18 at 12:42; Stop 01/29/18 at 12:43; Status DC Lidocaine HCl (Lidocaine Pf 2% Vial) 5 ml STK-MED ONCE .ROUTE ; Start 01/29/18 at 12:42; Stop 01/29/18 at 12:43; Status DC Ondansetron HCl (Zofran) 4 mg STK-MED ONCE .ROUTE ; Start 01/29/18 at 12:42; Stop 01/29/18 at 12:43; Status DC Fentanyl Citrate (Fentanyl 2ml Vial) 100 mcg STK-MED ONCE .ROUTE ; Start at 12:42; Stop 01/29/18 at 12:43; Status DC Midazolam HCl (Versed) 2 mg STK-MED ONCE .ROUTE ; Start 01/29/18 at 12:42; Stop 01/29/18 at 12:43; Status DC Cefazolin Sodium 1 gm/Sodium Chloride 250 ml @ 250 mls/hr 1X ONCE IV ; Start 01/29/18 at 13:00; Stop 01/29/18 at 13:59; Status DC Famotidine (Pepcid Vial) 20 mg STK-MED ONCE .ROUTE ; Start 01/29/18 at 13:07; Stop 01/29/18 at 13:08; Status DC Ephedrine Sulfate (ePHEDrine PF IN SALINE SYRINGE) 50 mg STK-MED ONCE IV ; Start 01/29/18 at 13:42; Stop 01/29/18 at 13:43; Status DC Fentanyl Citrate (Fentanyl 2ml Vial) 100 mcg STK-MED ONCE .ROUTE ; Start at 14:21; Stop 01/29/18 at 14:22; Status DC Insulin Human Lispro (HumaLOG) 20 units 1X ONCE SQ Last administered on at 22:38; Start 01/29/18 at 23:00; Stop 01/29/18 at 23:01; Status DC Vancomycin HCl (Vancomycin Trough Level) 1 each 1X ONCE MC Last administered on 01/30/18at 21:30; Start 01/30/18 at 21:30; Stop 01/30/18 at 21:31; Status DC Lidocaine/Sodium Bicarbonate (Buffered Lidocaine 1%) 6 ml 1X ONCE INJ Last administered on 01/31/18at 13:45; Start 01/31/18 at 13:30; Stop 01/31/18 at 13 :31; Status DC Lidocaine/Sodium Bicarbonate (Buffered Lidocaine 1%) 3 ml STK-MED ONCE .ROUTE ; Start 01/31/18 at 13:11; Stop 02/01/18 at 11:15; Status DC Meropenem 1 gm/ Sodium Chloride 100 ml @ 200 mls/hr Q12HR IV Last administered on 02/06/18at 10:04; Start 02/01/18 at 21:00 Benzonatate (Tessalon Perle) 100 mg PRN TID PRN PO cough 1ST CHOICE; Start 02/06/18 at 12:15 Active Scripts Active Reported Remedy Phytoplex Antifungal (Miconazole Nitrate) 85 Gm Powder 1 Alia TP DAILY Loratadine 10 Mg Tablet 10 Mg PO DAILY Ascorbic Acid 500 Mg Tablet 500 Mg PO BID Hydrochlorothiazide Capsule (Hydrochlorothiazide) 12.5 Mg Capsule 12.5 Mg PO DAILY Glipizide 5 Mg Tablet 1 Tab PO BIDWMEALS Clopidogrel (Clopidogrel Bisulfate) 75 Mg Tablet 75 Mg PO DAILY Tylenol (Acetaminophen) 325 Mg Tablet 325 Mg PO PRN Q4HRS Metformin Hcl 500 Mg Tablet 500 Mg PO BIDWMEALS Lisinopril 20 Mg Tablet 40 Tab PO DAILY Levothyroxine Sodium 25 Mcg Tablet 25 Mcg PO DAILY Aspir 81 (Aspirin) 81 Mg Tablet.dr 81 Mg PO DAILY Amlodipine Besylate 5 Mg Tablet 10 Mg PO DAILY Vitals/I & O Vital Sign - Last 24 Hours 02/05/18 02/05/18 02/05/18 02/05/18 15:00 19:00 19:45 23:00 Temp 97.3 97.9 97.5 97.3 97.9 97.5 Pulse 90 90 51 Resp 18 18 18 B/P (MAP) 146/87 (106) 129/76 (93) 133/50 (77) Pulse Ox 98 97 98 O2 Delivery Room Air Room Air Room Air Room Air 02/06/18 02/06/18 02/06/18 02/06/18 07:10 08:00 08:06 11:00 Temp 97.7 97.6 97.7 97.6 Pulse 83 83 100 Resp 14 16 B/P (MAP) 121/75 (90) 121/75 130/71 (90) Pulse Ox 97 100 O2 Delivery Room Air Room Air Room Air Intake and Output 02/05/18 02/05/18 02/06/18 15:00 23:00 07:00 Intake Total 400 ml Balance 400 ml CONRADO FUNK MD Feb 06, 2018 13:46
[2018-02-06 15:00] VITALS: BP 119/77
[2018-02-06 19:15] VITALS: BP 120/62
[2018-02-06 23:16] VITALS: BP_SYST 118; BP_DIAS 5; BP_DIAS 53
[2018-02-07 03:08] VITALS: BP 122/60
[2018-02-07] MEDS: LEVOTHYROXINE 25 MCG TABLET. PO SCH (06:11)
[2018-02-07 07:00] VITALS: BP 104/61
[2018-02-07] MEDS: ASPIRIN ENTERIC COATED 81 MG TABLET.DR. PO SCH (07:59)
[2018-02-07] MEDS: hydroCHLOROthiazide 12.5 MG CAPSULE PO SCH (08:00)
[2018-02-07] MEDS: ASCORBIC ACID 500 MG TABLET PO SCH (08:00)
[2018-02-07] MEDS: MULTIVITAMIN I-VITE TABLET. PO SCH (08:00)
[2018-02-07] MEDS: LACTOBACILLUS RHAMNOSUS GG 1 CAPSULE. PO SCH (08:00)
[2018-02-07] MEDS: glipiZIDE 5 MG TABLET PO SCH (08:00)
[2018-02-07] MEDS: CLOPIDOGREL BISULFATE 75 MG TABLET PO SCH (08:00)
[2018-02-07] MEDS: DOCUSATE SODIUM 100 MG CAPSULE. PO PRN (08:00)
[2018-02-07] MEDS: INSULIN LISPRO 300 UNITS/3 ML INSULN.PEN. SQ SCH ×2 (08:00→11:51)
[2018-02-07] MEDS: metFORMIN 500 MG TABLET PO SCH (08:07)
[2018-02-07] MEDS: amLODIPine BESYLATE 10 MG TABLET PO SCH (08:07)
[2018-02-07] MEDS: ENOXAPARIN 40 MG/0.4 ML SYRINGE. SQ SCH (08:08)
[2018-02-07] MEDS: MEROPENEM 1 GM in IV NORMAL SALINE 100ML 100 ML IV SCH (08:08)
[2018-02-07] MEDS: guaiFENesin ORAL 200 MG/10 ML LIQUID. PO PRN (08:12)
[2018-02-07] MEDS ORDERED: VIT1TABL8 PO (10:21)
--- NOTE | 2018-02-07 10:25 | DISCH ---
DISCHARGE DISCHARGE INFORMATION: DISCHARGE DATE: Feb 07, 2018 FINAL DIAGNOSIS osteomyelitis left foot CONDITION ON DISCHARGE: Stable CODE STATUS: Code Status: Full INTERMEDIATE: SNF STAY <30 DAYS: Yes POST DISCHARGE ORDERS: ACTIVITY ORDERS: Activity as tolerated WEIGHT BEARING STATUS: Partial weight bearing DIET AFTER DISCHARGE: ADA WOUND/INCISION CARE: Other, see below (wound care osteomyelitis left foot) OTHER ORDERS: cont meropenum bid for 3-4 weeks CHECKS AFTER DISCHARGE: CHECKS AFTER DISCHARGE: Check blood press - daily, Check blood sugar, ac/hs FOLLOW-UP: PHYSICIAN FOLLOW-UP: follow up with dr. Amilcar MORAN and vascular doc in 2 weeks TREATMENT/EQUIPMENT ORDERS: ADAPTIVE EQUIPMENT NEEDED: None INFUSION EQUIPMENT NEEDED: PICC Line Physical Therapy For: Evalulation/Treatment Occupational Therapy For: Evaluation/Treatment DISCHARGE MEDICATIONS: Home Meds Active Scripts Vit A,C & E/Lutein/Minerals (I-MAYDA TABLET) 1 Each Tablet, 1 TAB PO DAILY for wound for 28 Days, #28 TAB Prov:CONRADO FUNK MD 02/07/18 Reported Medications Miconazole Nitrate (Remedy Phytoplex Antifungal) 85 Gm Powder, 1 MARIE TP DAILY, MISC 01/25/18 Loratadine (LORATADINE) 10 Mg Tablet, 10 MG PO DAILY, TAB 01/25/18 Ascorbic Acid (ASCORBIC ACID) 500 Mg Tablet, 500 MG PO BID, TAB 01/23/18 Glipizide (GLIPIZIDE) 5 Mg Tablet, 1 TAB PO BIDWMEALS, #60 TAB 3 Refills 01/23/18 Clopidogrel Bisulfate (CLOPIDOGREL) 75 Mg Tablet, 75 MG PO DAILY, #90 TAB 1 Refill 01/23/18 Acetaminophen (TYLENOL) 325 Mg Tablet, 325 MG PO PRN Q4HRS, #30 TAB 01/23/18 Metformin Hcl (METFORMIN HCL) 500 Mg Tablet, 500 MG PO BIDWMEALS, #60 TAB 3 Refills 06/17/15 Lisinopril (LISINOPRIL) 20 Mg Tablet, 40 TAB PO DAILY, #30 TAB 5 Refills 06/17/15 Levothyroxine Sodium (LEVOTHYROXINE SODIUM) 25 Mcg Tablet, 25 MCG PO DAILY, #30 TAB 5 Refills 06/17/15 Aspirin (ASPIR 81) 81 Mg Tablet.dr 81 MG PO DAILY, #30 TAB 5 Refills 06/17/15 CONRADO FUKN MD Feb 07, 2018 10:25
--- NOTE | 2018-02-07 10:27 | PDOC ---
Infectious Disease Note Subjective Subjective Wants to shower Otherwise feeling alright Denies pain/F/C/N/V/D ROS ROS o/w neg Vital Sign Vital Signs Vital Signs Date Time Temp Pulse Resp B/P (MAP) Pulse Ox O2 Delivery O2 Flow Rate FiO2 02/07/18 08:07 82 133/63 02/07/18 07:00 97.6 20 90 Room Air 97.6 Physical Exam PHYSICAL EXAM GENERAL: Propped up on side of bed, alert, NAD HEENT: Oral cavity pink. No thrush NECK: Supple LUNGS: Clear. HEART: S1, S2 regular. ABDOMEN: Obese, soft, NT EXTREMITIES: BLE edema 1+. Left foot wound vac in place NEUROLOGIC: Alert and oriented x 3 SKIN: no rash RUE-PICC (01/31) w/o signs of infection Labs Lab Laboratory Tests Test 02/06/18 11:26 02/06/18 16:11 02/06/18 21:00 02/07/18 07:38 Glucose (Fingerstick) 183 mg/dL (70-99) 164 mg/dL (70-99) 152 mg/dL (70-99) 116 mg/dL (70-99) Micro Enterobacter cloacae 4+ AEROBIC RES 2 Final Comment Pseudomonas aeruginosa 1+ ANTIMICROBIAL SUSCEPTIBILITY Final Comment S = Susceptible; I = Intermediate; R = Resistant P = Positive; N = Negative MICS are expressed in micrograms per mL Antibiotic RSLT#1 RSLT#2 RSLT#3 RSLT#4 Amikacin S<=2 Amoxicillin/Clavulanic Acid R>=32 Cefazolin R>=64 Cefepime S<=0.12 S =2 Ceftazidime S =4 Cefuroxime R =R Ciprofloxacin S<=0.25 S<=0.25 Ertapenem S<=0.12 Gentamicin S<=1 S<=1 CONTINUED ON NEXT PAGE RUN DATE: 01/29/18 PAGE 2 RUN TIME: [id number] [facility] [address] [place] [address] Kapil Dickerson M.D., Management Professor SPEC: [id number] PATIENT: FABIOLA ANN [id number] ( Continued) Procedure Result ANTIMICROBIAL SUSCEPTIBILITY Final (continued) Imipenem S<=0.25 S =2 Levofloxacin S<=0.12 S =1 Meropenem S<=0.25 S =0.5 Piperacillin S =8 Tetracycline S<=1 Ticarcillin S =32 Tobramycin S<=1 S<=1 Trimethoprim/Sulfa S<=20 Microbiology 01/23/18 Blood Culture - Final, Complete NO GROWTH AFTER 5 DAYS 01/23/18 Urine Culture - Final, Complete 01/23/18 Urine Culture Result 1 (ILDA) - Final, Complete 01/29/18 Fungal Culture - Preliminary, Resulted 01/29/18 Fungal Culture Result 1 - Preliminary, Resulted Objective Assessment Osteomyelitis of 3 rd met. Enterobacter and PSAE s/p wedge resection of the left third metatarsal head on 01/29 DM PAD HTN DM PAD Plan Plan of Care Cont meropenem (no once daily options) but change to 1 gm q 12. WILL NEED FOLLOW -UP APPT IN OUR OFFICE IN 2 WEEKS. ANTIBIOTICS ARE NOT TO BE STOPPED Weekly CBC, CMP and ESR faxed to [phone] Probiotics If transferred he will need IV abx for 4 to 6 weeks total D/w AMY MYERS MD Feb 07, 2018 10:27
[2018-02-07 11:00] VITALS: BP 124/77
--- NOTE | 2018-02-07 12:05 | PDOC3 ---
Discharge Summary [facility] Date of Admission: Jan 23, 2018 Discharge Date: Feb 07, 2018 Admitting Diagnosis Left diabetic foot cellulitis/osteomyelitis s/p 3rd toe metatarsal resection , wound cx enterobacter, pseudomonas Hyperglycemia H/o DM H/o PAD H/o MRSA H/o cognitive disability H/o HTN H/o hypothyroidism H/o amputation (4 toes on left foot) CONSULTS id vascular Brief Hospital Course Mr. Saeed is a 67 old M, from [facility], h/o left toes osteomyelitis s/p 4 toes amputated, came since there was a wound at 3rd toe metatarsal not healing , recommend from wound clinic to admit. pt was found osteo again, got 3rd metatarsal resection 01/29, has wound vac on. wound cx enterobacter, pseudomonas now pt has no pain, cont on meropenum bid, dc to snf for iv abx, and wound vac, for 4-6 weeks totally. fu with id and vascular in the office in 2 weeks. dc time 35min. Physical Exam HEENT: Mucus membranes moist Neck: Supple, No JVD General: Alert, Cooperative, No acute distress, Other Heart: Regular rate, Normal S1, Normal S2, No murmurs Lungs: Clear Abdomen: Soft, No tenderness Extremities: Left foot only 1 toe left, the sx wound is open with wound vac on. Skin: No rashes Disposition rehab CONDITION AT DISCHARGE: Improved Scheduled Acetaminophen (Tylenol), 325 MG PO PRN Q4HRS, (Reported) Ascorbic Acid (Ascorbic Acid), 500 MG PO BID, (Reported) Aspirin (Aspir 81), 81 MG PO DAILY, (Reported) Clopidogrel Bisulfate (Clopidogrel), 75 MG PO DAILY, (Reported) Glipizide (Glipizide), 1 TAB PO BIDWMEALS, (Reported) Levothyroxine Sodium (Levothyroxine Sodium), 25 MCG PO DAILY, (Reported) Lisinopril (Lisinopril), 40 TAB PO DAILY, (Reported) Loratadine (Loratadine), 10 MG PO DAILY, (Reported) Metformin Hcl (Metformin Hcl), 500 MG PO BIDWMEALS, (Reported) Miconazole Nitrate (Remedy Phytoplex Antifungal), 1 MARIE TP DAILY, (Reported) Vit A,C & E/Lutein/Minerals (I-Erica Tablet), 1 TAB PO DAILY CONRADO FUNK MD Feb 07, 2018 12:05
== END 2018-02-07 12:10 | DRG 629 ==
LOC: 4 NORTH 15:50
PROVIDERS: ADMIT Family Medicine; ATTEND Family Medicine
PROC: 0HBQXZZ Excision of Finger Nail, External Approach (ICD-10-PCS; 2018-01-24)
PROC: 0HBQXZZ Excision of Finger Nail, External Approach (ICD-10-PCS; 2018-01-24)
PROC: 0HBQXZZ Excision of Finger Nail, External Approach (ICD-10-PCS; 2018-01-24)
PROC: 0HBQXZZ Excision of Finger Nail, External Approach (ICD-10-PCS; 2018-01-24)
PROC: 0QBP0ZZ Excision of Left Metatarsal, Open Approach (ICD-10-PCS; principal; 2018-01-29 12:45)
PROC: 02HV33Z Insertion of Infusion Device into Superior Vena Cava, Percutaneous Approach (ICD-10-PCS; 2018-01-31)
PROC: B5181ZA Fluoroscopy of Superior Vena Cava using Low Osmolar Contrast, Guidance (ICD-10-PCS; 2018-01-31)
PROC: B548ZZA Ultrasonography of Superior Vena Cava, Guidance (ICD-10-PCS; 2018-01-31)
DX: E11.69 Type 2 diabetes mellitus with other specified complication (principal); L03.116 Cellulitis of left lower limb; M86.172 Other acute osteomyelitis, left ankle and foot; E78.5 Hyperlipidemia, unspecified; I10 Essential (primary) hypertension; E11.628 Type 2 diabetes mellitus with other skin complications; E11.65 Type 2 diabetes mellitus with hyperglycemia; E11.51 Type 2 diabetes mellitus with diabetic peripheral angiopathy without gangrene; E11.42 Type 2 diabetes mellitus with diabetic polyneuropathy; E11.621 Type 2 diabetes mellitus with foot ulcer; L97.529 Non-pressure chronic ulcer of other part of left foot with unspecified severity; E03.9 Hypothyroidism, unspecified; M19.90 Unspecified osteoarthritis, unspecified site; B35.1 Tinea unguium; L60.2 Onychogryphosis; B96.89 Other specified bacterial agents as the cause of diseases classified elsewhere; B96.5 Pseudomonas (aeruginosa) (mallei) (pseudomallei) as the cause of diseases classified elsewhere; Z89.419 Acquired absence of unspecified great toe; Z86.14 Personal history of Methicillin resistant Staphylococcus aureus infection; Z89.429 Acquired absence of other toe(s), unspecified side; Z83.3 Family history of diabetes mellitus; Z82.49 Family history of ischemic heart disease and other diseases of the circulatory system
CPT/HCPCS: 36415; 36569; 71045; 71046; 76937; 77001; 80048; 80053; 80202; 81001; 82962; 83605; 85007; 85025; 85027; 87040; 87071; 87075; 87086; 87102; 87186; 87641; 93923; 93970; 94760; C1751; C1892; J1100; J1650; J1815; J2001; J2185; J2250; J2405; J2704; J3010; J3370; J3490; J7030; J7040; J7050; J7120; 97110; 97116; 97535; A4461

== ENCOUNTER 2019-01-22 13:03 | Inpatient (IN) | payer MEDICARE, MEDICAID ==
[~2019-01-22 13:03] MED LIST changes: +ACET325T9 PO; +AMLO5TAB10 PO; -AMLO5TAB7 PO; +ASCO500T3 PO; +CLOP75TA PO; +GLIP5TAB10 PO; +HYDR12.575 PO; +LORA10TA3 PO; +METO25TA4 PO; +MICO85PO6 TP; +MULT-246 PO; +VIT1TABL8 PO
[2019-01-22 15:00] VITALS: BP 136/56
[2019-01-22] MEDS ORDERED: AMLO5TAB10 PO (15:05)
[2019-01-22] MEDS ORDERED: MULT-638 PO (15:31)
[2019-01-22] MEDS ORDERED: ATOR20TA58 PO (15:31)
[2019-01-22] MEDS ORDERED: INSU100I13 SQ (15:31)
[2019-01-22] MEDS: IV 1/2 NORMAL SALINE 1,000 ML IV SCH (15:39)
[2019-01-22] MEDS ORDERED: PROCHLORPERAZINE 10 MG/2 ML VIAL. IV PRN (15:45)
[2019-01-22] MEDS ORDERED: MORPHINE SULFATE 2 MG/ML VIAL. IV PRN (15:45)
[2019-01-22] MEDS ORDERED: ACETAMINOPHEN 325 MG TABLET. PO PRN ×2 (15:45)
[2019-01-22] MEDS ORDERED: oxyCODONE IR 5 MG TABLET PO PRN (15:45)
[2019-01-22] MEDS ORDERED: CALCIUM CARBONATE 500 MG TAB.CHEW PO PRN (15:45)
[2019-01-22] MEDS ORDERED: DEXTROSE 50% 25 GM / 50ML DISP.SYRIN. IV PRN (15:45)
[2019-01-22] MEDS ORDERED: ZOLPIDEM 5 MG TABLET. PO PRN (15:45)
[2019-01-22] MEDS ORDERED: MAG HYDROX/ALUMINUM HYD/SIMETH 30 ML ORAL.SUSP PO PRN (15:45)
[2019-01-22] MEDS ORDERED: ONDANSETRON PF 4 MG/2 ML VIAL. IV PRN (15:45)
--- NOTE | 2019-01-22 16:08 | PDOC1 ---
History and Physical Date of Admission Date of Admission DATE: 01/22/19 TIME: 16:02 Identification/Chief Complaint Chief Complaint diarrhea x 4 days, Right sided abd pain, transfer from, [facility] Source Source: Caregiver, Chart review, Patient History of Present Illness History of Present Illness HE is not the best historian, apparently brought by POV by dtr to [place]'s leg ends bec of 4 days hx diarrhea, no fever, no n.v, CT shows findings consistent with acute cholecystitis, with signs of urinary bladder wall thickening seen in cystitis plus diverticulosis but no itis,, HE is on asa and plavix for reasons he cant tell me (not the best historian), he is tender to RUQ but no guarding, HE is non toxic appearing, I have reviewed labs sent from [facility], WBC 23, lactate 2,8, CReat 1,4 VS good. UA ok I have informed GS of the pt's admisison Past Medical History Cardiovascular: HTN, Hyperlipidemia, Other Pulmonary: No pertinent hx CENTRAL NERVOUS SYSTEM: Periperal neuropathy GI: No pertinent hx Heme/Onc: No pertinent hx Musculoskeletal: Osteoarthritis Rheumatologic: No pertinent hx Infectious disease: No pertinent hx Renal/: No pertinent hx Endocrine: Diabetes, Hypothyroidism Past Surgical History Past Surgical History: Other Family History Family History: Coronary Artery Disease, Diabetes, Heart Disease Social History Smoke: No ALCOHOL: none Drugs: None Current Medications Current Medications Current Medications Sodium Chloride 1,000 ml @ 100 mls/hr Q10H IV ; Start 01/22/19 at 15:39 Ondansetron HCl (Zofran) 4 mg PRN Q6HRS PRN IV NAUSEA/VOMITING; Start 01/22/19 at 15:45 Prochlorperazine Edisylate (Compazine) 10 mg PRN Q6HRS PRN IV NAUSEA/VOMITING; Start 01/22/19 at 15:45 Al Hydroxide/Mg Hydroxide (Mylanta Plus Xs) 30 ml PRN Q3HRS PRN PO HEARTBURN / GAS; Start 01/22/19 at 15:45 Calcium Carbonate/ Glycine (Tums) 500 mg PRN Q3HRS PRN PO UPSET STOMACH; Start 01/22/19 at 15:45 Zolpidem Tartrate (Ambien) 5 mg PRN QHS PRN PO INSOMNIA, MAY REPEAT IN 1HR; S tart 01/22/19 at 15:45 Oxycodone HCl (Roxicodone) 5 mg PRN Q3HRS PRN PO BREAKTHROUGH PAIN; Start 01/22/19 at 15:45 Morphine Sulfate (Morphine Sulfate) 1 mg PRN Q1HR PRN IV PAIN; Start 01/22/19 at 15:45 Acetaminophen (Tylenol) 650 mg PRN Q6HRS PRN PO Headaches, Temp > 101.5F; Start 01/22/19 at 15:45 Insulin Human Lispro (HumaLOG) 0-9 UNITS TIDWMEALS SQ ; Start 01/22/19 at 17:00 Dextrose (Dextrose 50%-Water Syringe) 12.5 gm PRN Q15MIN PRN IV SEE COMMENTS; Start 01/22/19 at 15:45 Acetaminophen (Tylenol) 325 mg PRN Q4HRS PRN PO MILD PAIN / TEMP; Start 01/22/19 at 15:45 Amlodipine Besylate (Norvasc) 5 mg DAILY PO ; Start 01/23/19 at 09:00 Ascorbic Acid (Vitamin C) 500 mg BID PO ; Start 01/22/19 at 21:00 Atorvastatin Calcium (Lipitor) 20 mg DAILY PO ; Start 01/23/19 at 09:00 Glipizide (Glucotrol) 5 mg BIDWMEALS PO ; Start 01/22/19 at 17:00 Levothyroxine Sodium (Synthroid) 25 mcg DAILY PO ; Start 01/23/19 at 09:00 Multivitamins (Thera M Plus) 1 tab DAILY PO ; Start 01/23/19 at 09:00 Insulin Glargine (Lantus Syringe) 15 unit QHS SQ ; Start 01/22/19 at 21:00 Active Scripts Active Reported Thera M Plus Tablet (Multivits,Ca,Minerals/Iron/FA) 1 Each Tablet 1 Each PO DAILY Lantus Solostar (Insulin Glargine,Hum.rec.anlog) 100 Unit/1 Ml Insuln.pen 15 Unit SQ QHS Atorvastatin Calcium 20 Mg Tablet 1 Tab PO DAILY Amlodipine Besylate 5 Mg Tablet 5 Mg PO DAILY Loratadine 10 Mg Tablet 10 Mg PO DAILY Ascorbic Acid 500 Mg Tablet 500 Mg PO BID Glipizide 5 Mg Tablet 1 Tab PO BIDWMEALS Clopidogrel (Clopidogrel Bisulfate) 75 Mg Tablet 75 Mg PO DAILY Tylenol (Acetaminophen) 325 Mg Tablet 325 Mg PO PRN Q4HRS Metformin Hcl 500 Mg Tablet 500 Mg PO BIDWMEALS Lisinopril 20 Mg Tablet 40 Tab PO DAILY Levothyroxine Sodium 25 Mcg Tablet 25 Mcg PO DAILY Aspir 81 (Aspirin) 81 Mg Tablet.dr 81 Mg PO DAILY Allergies Allergies: Coded Allergies: I S O L A T I O N *CONTACT* (Verified Allergy, Unknown, 11/20/17) mrsa lisinopril (Verified Adverse Reaction, Intermediate, COUGH, 02/01/18) ROS Review of System as per hpi, rest 14 pt he denies Physical Exam General: Alert, Oriented X3, Cooperative, No acute distress HEENT: Atraumatic, PERRLA, EOMI Lungs: Clear to auscultation, Normal air movement Heart: S1S2, RRR, no thrills, no rubs, no gallops, no murmurs Cardiovascular: S1, S2 Abdomen: Soft, Other (hyperactive BS, tender RUQ, no rebound, but voluntarily guards it) Rectal Exam: not examined PELVIC: Nml ext genitalia Extremities: No clubbing, No cyanosis, No edema, Normal pulses, No tenderness/swelling Skin: No rashes, No breakdown, No significant lesion Neuro: Normal gait, Normal speech, Strength at 5/5 X4 ext, Normal tone, Sensation intact, Cranial nerves 3-12 NL, Reflexes 2+ Psych/Mental Status: Mental status NL, Mood NL Vitals Vitals Vital Signs Date Time Temp Pulse Resp B/P (MAP) Pulse Ox O2 Delivery O2 Flow Rate FiO2 01/22/19 15:00 98.5 106 18 136/56 (82) 97 Room Air 98.5 VTE Prophylaxis Ordered VTE Prophylaxis Devices: Yes VTE Pharmacological Prophylaxi: Yes Assessment/Plan Assessment/Plan 1. Acute cholecystitis on CT 2. Urinary bladder wall thickening seen on cystitis 3., Diverticulosis without itis 4. HTN, DM 2, OA - chronic stable 5. SIRS with elevated WBC 23 and elev lactate 2.8 6. Diarrhea x 4 days PLAN: 2MN NPO, IVF, GS consult HOld asa and plavix but can resume the rest of home meds SSI IV zosyn, REcheck labs jocelyn lactae, wbc tmr Dw GS and RN CAROLINA Tavarez MD Jan 22, 2019 16:08
[2019-01-22] MEDS ORDERED: PIP/TAZO PER PHARMACY MC PRN (16:15)
[2019-01-22] MEDS: glipiZIDE 5 MG TABLET PO SCH (16:51)
--- NOTE | 2019-01-22 16:55 | PDOC2 ---
CONSULT Date of Consult Date of Consult DATE: 01/22/19 TIME: 16:53 History of Present Illness Reason for Visit: The patient is a 68 year old male who was admitted due to persistent vomiting and abdominal pain. The pain is generally located in the upper abdomen and right side. He denies any radiation of the pain. Past Medical History Cardiovascular: HTN, Hyperlipidemia, Other Pulmonary: No pertinent hx CENTRAL NERVOUS SYSTEM: Periperal neuropathy GI: No pertinent hx Heme/Onc: No pertinent hx Musculoskeletal: Osteoarthritis Rheumatologic: No pertinent hx Infectious disease: No pertinent hx Renal/: No pertinent hx Endocrine: Diabetes, Hypothyroidism Past Surgical History Past Surgical History: Other Family History Family History: Coronary Artery Disease, Diabetes, Heart Disease Social History No ALCOHOL: none Drugs: None Lives: Alone Current Medications Current Medications Current Medications Sodium Chloride 1,000 ml @ 100 mls/hr Q10H IV Last administered on 01/22/19at 15:39; Start 01/22/19 at 15:39 Ondansetron HCl (Zofran) 4 mg PRN Q6HRS PRN IV NAUSEA/VOMITING; Start 01/22/19 at 15:45 Prochlorperazine Edisylate (Compazine) 10 mg PRN Q6HRS PRN IV NAUSEA/VOMITING; Start 01/22/19 at 15:45 Al Hydroxide/Mg Hydroxide (Mylanta Plus Xs) 30 ml PRN Q3HRS PRN PO HEARTBURN / GAS; Start 01/22/19 at 15:45 Calcium Carbonate/ Glycine (Tums) 500 mg PRN Q3HRS PRN PO UPSET STOMACH; Start 01/22/19 at 15:45 Zolpidem Tartrate (Ambien) 5 mg PRN QHS PRN PO INSOMNIA, MAY REPEAT IN 1HR; Start 01/22/19 at 15:45 Oxycodone HCl (Roxicodone) 5 mg PRN Q3HRS PRN PO BREAKTHROUGH PAIN; Start 01/22/19 at 15:45 Morphine Sulfate (Morphine Sulfate) 1 mg PRN Q1HR PRN IV PAIN; Start 01/22/19 at 15:45 Acetaminophen (Tylenol) 650 mg PRN Q6HRS PRN PO Headaches, Temp > 101.5F; Start 01/22/19 at 15:45 Insulin Human Lispro (HumaLOG) 0-9 UNITS TIDWMEALS SQ ; Start 01/22/19 at 17:00 Dextrose (Dextrose 50%-Water Syringe) 12.5 gm PRN Q15MIN PRN IV SEE COMMENTS; Start 01/22/19 at 15:45 Acetaminophen (Tylenol) 325 mg PRN Q4HRS PRN PO MILD PAIN / TEMP; Start 01/22/19 at 15:45 Amlodipine Besylate (Norvasc) 5 mg DAILY PO ; Start 01/23/19 at 09:00 Ascorbic Acid (Vitamin C) 500 mg BID PO ; Start 01/22/19 at 21:00 Atorvastatin Calcium (Lipitor) 20 mg DAILY PO ; Start 01/23/19 at 09:00 Glipizide (Glucotrol) 5 mg BIDWMEALS PO ; Start 01/22/19 at 17:00 Levothyroxine Sodium (Synthroid) 25 mcg DAILY PO ; Start 01/23/19 at 09:00 Multivitamins (Thera M Plus) 1 tab DAILY PO ; Start 01/23/19 at 09:00 Insulin Glargine (Lantus Syringe) 15 unit QHS SQ ; Start 01/22/19 at 21:00 Piperacillin Sod/ Tazobactam Sod (Zosyn Per Pharmacy) 1 each PRN DAILY PRN MC SEE COMMENTS; Start 01/22/19 at 16:15 Piperacillin Sod/ Tazobactam Sod 3.375 gm/Sodium Chloride 50 ml @ 100 mls/hr Q6HRS IV ; Start 01/22/19 at 17:00 Active Scripts Active Reported Thera M Plus Tablet (Multivits,Ca,Minerals/Iron/FA) 1 Each Tablet 1 Each PO DAILY Lantus Solostar (Insulin Glargine,Hum.rec.anlog) 100 Unit/1 Ml Insuln.pen 15 Unit SQ QHS Atorvastatin Calcium 20 Mg Tablet 1 Tab PO DAILY Amlodipine Besylate 5 Mg Tablet 5 Mg PO DAILY Loratadine 10 Mg Tablet 10 Mg PO DAILY Ascorbic Acid 500 Mg Tablet 500 Mg PO BID Glipizide 5 Mg Tablet 1 Tab PO BIDWMEALS Clopidogrel (Clopidogrel Bisulfate) 75 Mg Tablet 75 Mg PO DAILY Tylenol (Acetaminophen) 325 Mg Tablet 325 Mg PO PRN Q4HRS Metformin Hcl 500 Mg Tablet 500 Mg PO BIDWMEALS Lisinopril 20 Mg Tablet 40 Tab PO DAILY Levothyroxine Sodium 25 Mcg Tablet 25 Mcg PO DAILY Aspir 81 (Aspirin) 81 Mg Tablet.dr 81 Mg PO DAILY Allergies Allergies: Coded Allergies: I S O L A T I O N *CONTACT* (Verified Allergy, Unknown, 11/20/17) mrsa lisinopril (Verified Adverse Reaction, Intermediate, COUGH, 02/01/18) ROS General: No: Chills, Night Sweats, Fatigue, Malaise, Appetite, Other PSYCHOLOGICAL ROS: No: Anxiety, Behavioral Disorder, Concentration difficultie, Decreased libido, Depression, Disorientation, Hallucinations, Hostility, Irritablity, Memory difficulties, Mood Swings, Obsessive thoughts, Physical abuse, Sexual abuse, Sleep disturbances, Suicidal ideation, Other Eyes: No Blurry vision, No Decreased vision, No Double vision, No Dry eyes, No Excessive tearing, No Eye Pain, No Itchy Eyes, No Loss of vision, No Photophobia, No Scotomata, No Uses contacts, No Uses glasses, No Other HEENT: No: Heacaches, Visual Changes, Hearing change, Nasal congestion, Nasal discharge, Oral lesions, Sinus pain, Sore Throat, Epistaxis, Sneezing, Snoring, Tinnitus, Vertigo, Vocal changes, Other ALLERGY AND IMMUNOLOGY: No: Hives, Insect Bite Sensitivity, Itchy/Watery Eyes, Nasal Congestion, Post Nasal Drip, Seasonal Allergies, Other Hematological and Lymphatic: No: Bleeding Problems, Blood Clots, Blood Transfusions, Brusing, Night Sweats, Pallor, Swollen Lymph Nodes, Other ENDOCRINE: No: Breast Changes, Galactorrhea, Hair Pattern Changes, Hot Flashes, Malaise/lethargy, Mood Swings, Palpitations, Polydipsia/polyuria, Skin Changes, Temperature Intolerance, Unexpected Weight Changes, Other Respiratory: No: Cough, Hemoptysis, Orthopnea, Pleuritic Pain, Shortness of breath, SOB with excertion, Sputum Changes, Stridor, Tachypnea, Wheezing, Other Cardiovascular: No Chest Pain, No Palpitations, No Orthopnea, No Paroxysmal Noc. Dyspnea, No Edema, No Lt Headedness, No Other Gastrointestinal: Yes Vomiting, Yes Abdominal Pain Genitourinary: No Dysuria, No Frequency, No Incontinence, No Hematuria, No Retention, No Discharge, No Urgency, No Pain, No Flank Pain, No Other, No , No , No , No , No , No , No Musculoskeletal: No Gait Disturbance, No Joint Pain, No Joint Stiffness, No Joint Swelling, No Muscle Pain, No Muscular Weakness, No Pain In:, No Swelling In:, No Other Neurological: No Behavorial Changes, No Bowel/Bladder ControlChng, No Confusion, No Dizziness, No Gait Disturbance, No Headaches, No Impaired Coord/balance, No Memory Loss, No Numbness/Tingling, No Seizures, No Speech Problems, No Tremors, No Visual Changes, No Weakness, No Other Skin: No Dry Skin, No Eczema, No Hair Changes, No Lumps, No Mole Changes, No Mottling, No Nail Changes, No Pruritus, No Rash, No Skin Lesion Changes, No Other, No Acne Physical Exam General: Alert, Oriented X3, Cooperative HEENT: Atraumatic Lungs: Clear to auscultation Heart: Regular rate Abdomen: Soft (tender with palpation RUQ) Extremities: No clubbing, No cyanosis Skin: No rashes Neuro: Normal speech, Strength at 5/5 X4 ext Psych/Mental Status: Mental status NL Vitals VITALS Vital Signs Date Time Temp Pulse Resp B/P (MAP) Pulse Ox O2 Delivery O2 Flow Rate FiO2 01/22/19 15:00 98.5 106 18 136/56 (82) 97 Room Air 98.5 Assessment/Plan Assessment/Plan 68 year old male with RUQ pain, outside labs show WBC of 22,000, CT showed findings of acute cholecystitis. Recommend IV abx, hydration, hold asa/plavix, lap samir in AM. KEI CASTANEDA MD Jan 22, 2019 16:55
[2019-01-22] MEDS: INSULIN LISPRO 300 UNITS/3 ML VIAL. SQ SCH (17:00)
[2019-01-22] MEDS: PIPERACILLIN/TAZOBACTAM 3.375 GM in IV NORMAL SALINE 50ML 50 ML IV SCH ×2 (17:16→23:22)
--- NOTE | 2019-01-22 18:09 | EKG ---
[facility] [address] [place] [address] Test Date: 2019-01-22 Test Time: 19:01:06 Pat Name: FABIOLA ANN Department: Room: 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
[2019-01-22 19:13] VITALS: BP 150/67
[2019-01-22 19:33] LABS: BASO # 0.1 x10^3/uL (0.0-0.2); BASO % 0 % (0-3); EOS % 0 % (0-3); HEMATOCRIT 41.1 % (39.0-53.0); HEMOGLOBIN 14.1 g/dL (13.0-17.5); LYMPH # 2.3 x10^3/uL (1.0-4.8); LYMPH % 11 % (24-48); MEAN CORPUSCULAR HEMOGLOBIN 31 pg (25-35); MEAN CORPUSCULAR HGB CONC 34 g/dL (31-37); MEAN CORPUSCULAR VOLUME 91 fL (79-100); MONO # 2.6 x10^3/uL (0.0-1.1); MONO % 13 % (0-9); NEUT # 15.4 x10^3/uL (1.8-7.7); NEUT % 76 % (31-73); PLATELET COUNT 198 x10^3/uL (140-400); RED BLOOD COUNT 4.51 x10^6/uL (4.30-5.70); RED CELL DISTRIBUTION WIDTH 13.3 % (11.5-14.5); WHITE BLOOD COUNT 20.3 x10^3/uL (4.0-11.0)
[2019-01-22 19:45] LABS: PROTHROMBIN TIME PATIENT 14.9 SEC (11.7-14.0)
[2019-01-22 19:46] LABS: ALBUMIN/GLOBULIN RATIO 0.7 (1.0-1.7); CALCIUM 7.6 mg/dL (8.5-10.1); CREATININE 1.3 mg/dL (0.7-1.3); GFR 55.1; POTASSIUM 4.1 mmol/L (3.5-5.1); TOTAL BILIRUBIN 2.3 mg/dL (0.2-1.0); TOTAL PROTEIN 7.2 g/dL (6.4-8.2)
[2019-01-22 20:00] LABS: % BANDS 7 % (0-9); % BASOS 1 % (0-3); % LYMPHS 15 % (24-48); % MONOS 8 % (0-10); % SEGS 69 % (35-66); PLT ESTIMATE ADEQUATE (ADEQUATE)
[2019-01-22] MEDS: ASCORBIC ACID 500 MG TABLET PO SCH (21:00)
[2019-01-22 23:03] VITALS: BP 151/72
[2019-01-22] MEDS: INSULIN GLARGINE SYRINGE. SQ SCH (23:26)
--- NOTE | 2019-01-22 23:29 | NUR ---
Due to orders from Surgeon pt only received 3/4 of lantus dose tonight. Will continue to monitor.
[2019-01-23] VITALS (12 sets, daily range): BP systolic 104–176; BP diastolic 50–82
[2019-01-23] MEDS: IV 1/2 NORMAL SALINE 1,000 ML IV SCH ×3 (01:39→21:51)
[2019-01-23 05:01] LABS: PROTHROMBIN TIME PATIENT 15.3 SEC (11.7-14.0)
[2019-01-23 05:03] LABS: BASO # 0.1 x10^3/uL (0.0-0.2); BASO % 0 % (0-3); EOS % 0 % (0-3); HEMATOCRIT 39.6 % (39.0-53.0); HEMOGLOBIN 13.7 g/dL (13.0-17.5); LYMPH # 2.6 x10^3/uL (1.0-4.8); LYMPH % 12 % (24-48); MEAN CORPUSCULAR HEMOGLOBIN 32 pg (25-35); MEAN CORPUSCULAR HGB CONC 35 g/dL (31-37); MEAN CORPUSCULAR VOLUME 92 fL (79-100); MONO # 2.9 x10^3/uL (0.0-1.1); MONO % 13 % (0-9); NEUT # 16.7 x10^3/uL (1.8-7.7); NEUT % 75 % (31-73); PLATELET COUNT 180 x10^3/uL (140-400); RED BLOOD COUNT 4.29 x10^6/uL (4.30-5.70); RED CELL DISTRIBUTION WIDTH 13.2 % (11.5-14.5); WHITE BLOOD COUNT 22.2 x10^3/uL (4.0-11.0)
[2019-01-23 05:15] LABS: CALCIUM 7.7 mg/dL (8.5-10.1); CREATININE 1.3 mg/dL (0.7-1.3); GFR 55.1; POTASSIUM 3.7 mmol/L (3.5-5.1)
[2019-01-23] MEDS: PIPERACILLIN/TAZOBACTAM 3.375 GM in IV NORMAL SALINE 50ML 50 ML IV SCH ×3 (06:36→17:10)
[2019-01-23] MEDS ORDERED: SURGICEL HEMOSTAT 4X8 EACH. ONE (06:57)
[2019-01-23] MEDS ORDERED: IOHEXOL 300 MG/ML 50 ML VIAL. ONE (06:57)
[2019-01-23] MEDS ORDERED: BUPIVACAINE MPF 0.5% 30 ML VIAL. ONE (06:58)
[2019-01-23] MEDS ORDERED: ONDANSETRON PF 4 MG/2 ML VIAL. IV PRN (07:00)
[2019-01-23] MEDS ORDERED: fentaNYL PF VIAL 100 MCG/2 ML VIAL IV PRN (07:00)
[2019-01-23] MEDS ORDERED: HYDROmorphone 2 MG/ML VIAL IV PRN (07:00)
[2019-01-23] MEDS ORDERED: IV RINGERS,LACTATED 1000ML 1,000 ML IV SCH (07:00)
[2019-01-23] MEDS ORDERED: GLYCOPYRROLATE 1 MG/5 ML VIAL. ONE (07:03)
[2019-01-23] MEDS ORDERED: fentaNYL PF VIAL 100 MCG/2 ML VIAL ONE ×2 (07:03→09:05)
[2019-01-23] MEDS ORDERED: KETOROLAC 30 MG/ML VIAL. ONE (07:03)
[2019-01-23] MEDS ORDERED: ROCURONIUM 50 MG/5 ML VIAL. ONE (07:03)
[2019-01-23] MEDS ORDERED: ONDANSETRON PF 4 MG/2 ML VIAL. ONE (07:03)
[2019-01-23] MEDS ORDERED: NEOSTIGMINE METHYLSULFATE 5 MG/5 ML SYRINGE. ONE (07:03)
[2019-01-23] MEDS ORDERED: DEXAMETHASONE SOD PHOS 4 MG/ML VIAL ONE (07:03)
[2019-01-23] MEDS ORDERED: MIDAZOLAM HCL/PF 2 MG/2 ML VIAL. ONE (07:03)
[2019-01-23] MEDS ORDERED: LIDOCAINE 2% PF 5 ML VIAL. ONE (07:03)
[2019-01-23] MEDS ORDERED: PROPOFOL 20 ML IV ONE (07:03)
[2019-01-23] MEDS ORDERED: INSULIN LISPRO 100 UNIT/ML 3ML VIAL for OP,RR ONLY. SQ PRN ×2 (08:00→09:45)
[2019-01-23] MEDS: glipiZIDE 5 MG TABLET PO SCH ×2 (08:00→17:09)
[2019-01-23] MEDS: INSULIN LISPRO 300 UNITS/3 ML VIAL. SQ SCH ×3 (08:00→17:21)
--- NOTE | 2019-01-23 08:30 | RAD ---
CHOLANGIOGRAM INTRAOPERATIVE Clinical Indication: Cholangiogram. Comparison: None. Findings: Intraoperative fluoroscopy is provided by the technologist. Total fluoroscopy time 18 seconds. 3 fluoroscopic spot images. Contrast injection of cystic duct remnant. There is filling of the extrahepatic duct with spillage into the duodenum. The common bile duct is normal caliber. No filling defect is seen. IMPRESSION: No evidence of choledocholithiasis. Electronically signed by: Pastor Schmitz MD (01/23/2019 8:27 AM) [id number]
--- NOTE | 2019-01-23 08:48 | PDOC4 ---
Operative Note Operative Note Operative Note: Preoperative Diagnosis: Acute cholecystitis Postoperative Diagnosis: Severe acute cholecystitis Procedure: Laparoscopic cholecystectomy with intraoperative cholangiogram Surgeons: Rodger Reduction Furnace Operator: Zan SCHMID Anesthesia: Gen. Estimated Blood Loss: 20 mL Specimen: Gallbladder to pathology Drains: 19 Fr IVA Complications: None Indications: The patient is a 68-year-old male who was admitted with abdominal p ain and findings consistent with acute cholecystitis. Surgical treatment was offered by means of a laparoscopic cholecystectomy. The risks of surgery were discussed which include bleeding, infection, bile duct injury, bile leak, pain, the potential for additional surgeries or procedures. The patient understands and would like to proceed. Description: The patient was taken to the operating room and laid supine on the operating table. General anesthesia was performed. The abdomen was prepped with ChloraPrep and draped in a standard surgical fashion. A small infraumbilical incision was made with a scalpel. The Veress needle was then inserted and a pneumoperitoneum was then created. A 5 mm trocar was then inserted and the laparoscope was introduced. In the upper midabdomen an 11 mm trocar was inserted and in the right upper quadrant two 5 mm trochars were inserted. The gallbladder was initially obscured due to inflammatory adhesions involving omentum. The omentum was peeled away exposing a markedly inflamed, thick-walled and dilated gallbladder. Approximately 50 mL of purulent fluid was aspirated from the gallbladder providing decompression. The gallbladder was retracted cephalad. The cystic duct was dissected free from surrounding tissues. One clip was placed on the duct near the gallbladder junction. An opening was made in the duct and a cholangiocatheter placed within and secured with a clip. Using contrast dye and fluoroscopy an intraoperative cholangiogram was performed that appeared unremarkable. The clip and catheter were then withdrawn. Three clips were placed on the cystic duct and it was divided. The cystic artery was then identified, dissected free, doubly clipped and divided as well. The gallbladder was then mobilized away from the liver with cautery. A small Surgicel pack was placed on the gallbladder fossa to assist with any oozing. A 19 [place] round Lambert drain was left in the gallbladder fossa which exited the right lateral port incision. This was secured to the skin with 2-0 s ilk. The gallbladder was then placed in an endoscopic bag and extracted at the superior trocar site. The fascia there was closed with 0 Vicryl sutures. All blood and irrigation fluid was suctioned and hemostasis was good. The remaining ports were removed and the pneumoperitoneum was relieved. The skin incisions were injected with half percent Marcaine with epinephrine, and all were closed using 4-0 Monocryl suture. Steri-Strips and dressings were then applied. The patient tolerated the procedure well and was sent to the recovery room in stable condition. At the end of the case all counts were correct. KEI CASTANEDA MD Jan 23, 2019 08:48
[2019-01-23] MEDS ORDERED: HYDROcodone/APAP 5/325MG 1 TAB TABLET PO PRN (09:00)
[2019-01-23] MEDS: fentaNYL PF VIAL 100 MCG/2 ML VIAL IV PRN ×2 (09:05→09:15)
[2019-01-23] MEDS ORDERED: PROCHLORPERAZINE 10 MG/2 ML VIAL. ONE (09:05)
[2019-01-23] MEDS: PROCHLORPERAZINE 10 MG/2 ML VIAL. IV PRN ×2 (09:10→10:30)
[2019-01-23] MEDS ORDERED: MORPHINE SULFATE 2 MG/ML VIAL. ONE (09:18)
[2019-01-23] MEDS: MORPHINE SULFATE 2 MG/ML VIAL. IV PRN ×2 (09:20→10:10)
[2019-01-23] MEDS ORDERED: ALBUTEROL SULFATE 2.5 MG/3 ML NEBU. ONE (09:38)
[2019-01-23] MEDS ORDERED: ALBUTEROL SULFATE 2.5 MG/3 ML NEBU. NEB ONE (09:45)
--- NOTE | 2019-01-23 11:31 | PDOC ---
[employer] PROGRESS NOTE Chief Complaint Chief Complaint The patient is a 68-year-old male who was admitted with abdominal pain and findings consistent with acute cholecystitis. Surgical treatment was offered by means of a laparoscopic cholecystectomy. The risks of surgery were discussed which include bleeding, infection, bile duct injury, bile leak, pain, the potential for additional surgeries or procedures. The patient understands and would like to proceed. The patient was seen and examined post-operatively. The patient is currently using a IVA drain, which appeared to be functioning normally. There was minor bleeding around the surgical site. Vitals/I&O Vitals/I&O: Vital Signs Date Time Temp Pulse Resp B/P (MAP) Pulse Ox O2 Delivery O2 Flow Rate FiO2 01/23/19 10:40 97.2 90 12 131/56 95 Nasal Cannula 2.0 97.2 I & O 01/22/19 01/22/19 01/23/19 15:00 23:00 07:00 Intake Total 100 ml Output Total 0 ml Balance 100 ml Physical Exam General: Alert, Oriented X3, Cooperative Heart: Regular rate Lungs: Clear Abdomen: Normal bowel sounds, Soft (tender with palpation RUQ), No tenderness, No hepatosplenomegaly Extremities: No clubbing, No cyanosis Skin: No rashes, No breakdown, No significant lesion Labs Labs: Laboratory Tests Test 01/22/19 16:59 01/22/19 19:15 01/22/19 21:59 01/23/19 03:25 Glucose (Fingerstick) 152 mg/dL (70-99) 180 mg/dL (70-99) White Blood Count 20.3 x10^3/uL (4.0-11.0) 22.2 x10^3/uL (4.0-11.0) Red Blood Count 4.51 x10^6/uL (4.30-5.70) 4.29 x10^6/uL (4.30-5.70) Hemoglobin 14.1 g/dL (13.0-17.5) 13.7 g/dL (13.0-17.5) Hematocrit 41.1 % (39.0-53.0) 39.6 % (39.0-53.0) Mean Corpuscular Volume 91 fL (79-100) 92 fL (79-100) Mean Corpuscular Hemoglobin 31 pg (25-35) 32 pg (25-35) Mean Corpuscular Hemoglobin Concent 34 g/dL (31-37) 35 g/dL (31-37) Red Cell Distribution Width 13.3 % (11.5-14.5) 13.2 % (11.5-14.5) Platelet Count 198 x10^3/uL (140-400) 180 x10^3/uL (140-400) Neutrophils (%) (Auto) 76 % (31-73) 75 % (31-73) Lymphocytes (%) (Auto) 11 % (24-48) 12 % (24-48) Monocytes (%) (Auto) 13 % (0-9) 13 % (0-9) Eosinophils (%) (Auto) 0 % (0-3) 0 % (0-3) Basophils (%) (Auto) 0 % (0-3) 0 % (0-3) Neutrophils # (Auto) 15.4 x10^3/uL (1.8-7.7) 16.7 x10^3/uL (1.8-7.7) Lymphocytes # (Auto) 2.3 x10^3/uL (1.0-4.8) 2.6 x10^3/uL (1.0-4.8) Monocytes # (Auto) 2.6 x10^3/uL (0.0-1.1) 2.9 x10^3/uL (0.0-1.1) Eosinophils # (Auto) 0.0 x10^3/uL (0.0-0.7) 0.0 x10^3/uL (0.0-0.7) Basophils # (Auto) 0.1 x10^3/uL (0.0-0.2) 0.1 x10^3/uL (0.0-0.2) Segmented Neutrophils % 69 % (35-66) Band Neutrophils % 7 % (0-9) Lymphocytes % 15 % (24-48) Monocytes % 8 % (0-10) Basophils % 1 % (0-3) Platelet Estimate Adequate (ADEQUATE) Prothrombin Time 14.9 SEC (11.7-14.0) 15.3 SEC (11.7-14.0) Prothromb Time International Ratio 1.2 (0.8-1.1) 1.2 (0.8-1.1) Sodium Level 141 mmol/L (136-145) 143 mmol/L (136-145) Potassium Level 4.1 mmol/L (3.5-5.1) 3.7 mmol/L (3.5-5.1) Chloride Level 103 mmol/L (98-107) 106 mmol/L (98-107) Carbon Dioxide Level 28 mmol/L (21-32) 26 mmol/L (21-32) Anion Gap 10 (6-14) 11 (6-14) Blood Urea Nitrogen 28 mg/dL (8-26) 26 mg/dL (8-26) Creatinine 1.3 mg/dL (0.7-1.3) 1.3 mg/dL (0.7-1.3) Estimated GFR (Cockcroft-Gault) 55.1 55.1 BUN/Creatinine Ratio 22 (6-20) Glucose Level 165 mg/dL (70-99) 118 mg/dL (70-99) Calcium Level 7.6 mg/dL (8.5-10.1) 7.7 mg/dL (8.5-10.1) Total Bilirubin 2.3 mg/dL (0.2-1.0) Aspartate Amino Transf (AST/SGOT) 15 U/L (15-37) Alanine Aminotransferase (ALT/SGPT) 20 U/L (16-63) Alkaline Phosphatase 130 U/L (46-116) Total Protein 7.2 g/dL (6.4-8.2) Albumin 3.0 g/dL (3.4-5.0) Albumin/Globulin Ratio 0.7 (1.0-1.7) Test 01/23/19 06:28 01/23/19 09:14 Glucose (Fingerstick) 106 mg/dL (70-99) 171 mg/dL (70-99) Review of Systems Review of Systems: Patient denies weakness and SOB Assessment and Plan Assessmemt and Plan Assessment: Acute cholecystitis, abdominal pain Plan: 1. wound care 2. monitor IVA drain 3. continue IV Antibiotics 4. DVT prophylaxis 5. home meds 6. full code 7. hope to discharge tomorrow if stable. Comment Review of Relevant I have reviewed the following items billy (where applicable) has been applied. Medications: Current Medications Medications (Trade) Dose Ordered Sig/Susan Route PRN Reason Start Time Stop Time Status Last Admin Dose Admin Sodium Chloride 1,000 ml @ 100 mls/hr Q10H IV 01/22/19 15:39 01/22/19 15:39 Ondansetron HCl (Zofran) 4 mg PRN Q6HRS PRN IV NAUSEA/VOMITING 01/22/19 15:45 01/22/19 21:00 Ascorbic Acid (Vitamin C) 500 mg BID PO 01/22/19 21:00 01/22/19 21:00 Insulin Glargine (Lantus Syringe) 15 unit QHS SQ 01/22/19 21:00 01/22/19 23:26 Piperacillin Sod/ Tazobactam Sod 3.375 gm/Sodium Chloride 50 ml @ 100 mls/hr Q6HRS IV 01/22/19 17:00 01/23/19 06:36 Fentanyl Citrate (Fentanyl 2ml Vial) 50 mcg PRN Q5MIN PRN IV MODERATE TO SEVERE PAIN 01/23/19 07:00 01/24/19 06:59 01/23/19 09:15 Morphine Sulfate (Morphine Sulfate) 1 mg PRN Q10MIN PRN IV SEVERE PAIN 7-10 01/23/19 07:00 01/24/19 06:59 01/23/19 09:20 Ringer's Solution 1,000 ml @ 30 mls/hr Q24H IV 01/23/19 07:00 01/23/19 18:59 01/23/19 07:00 Prochlorperazine Edisylate (Compazine) 5 mg PACU PRN PRN IV NAUSEA, MRX1 01/23/19 07:00 01/24/19 06:59 01/23/19 10:30 Iohexol (Omnipaque 300 Mg/ml) 50 ml STK-MED ONCE .ROUTE 01/23/19 06:57 01/23/19 06:57 DC 01/23/19 07:44 Cellulose (Surgicel Hemostat 4x8) 1 each STK-MED ONCE .ROUTE 01/23/19 06:57 01/23/19 06:58 DC 01/23/19 08:24 Bupivacaine HCl (Sensorcaine Mpf 0.5%) 30 ml STK-MED ONCE .ROUTE 01/23/19 06:58 01/23/19 06:58 DC 01/23/19 07:44 Insulin Human Lispro (HumaLOG VIAL for OP,RR ONLY) 0-10 units PRN Q1HR PRN SQ PER PROTOCOL 01/23/19 09:45 01/24/19 09:44 01/23/19 09:46 Albuterol Sulfate (Ventolin Neb Soln) 2.5 mg 1X ONCE NEB 01/23/19 09:45 01/23/19 09:47 DC 01/23/19 09:40 ERIKA REEVES III DO Jan 23, 2019 11:31
--- NOTE | 2019-01-23 12:11 | NUR ---
Patient arrived to unit from PACU at approx 1100. Patient oriented and drowsy but responds to name. C/o mild discomfort in abdomen. Vitals obtained. 4 lap sites and IVA in RLQ noted. Umbilical dressing had shadowing on arrival to unit. At 1150 umbilical dressing was saturated through with sanguinous drainage and dripping outside of dressing. Reinforced with additional gauze and medipore tape. Spoke with Kavitha RICO and notified of dressing. Elastic tape applied over dressing for pressure dressing at 1200. VSS. Patient resting comfortably. Will continue to monitor.
[2019-01-23] MEDS: LEVOTHYROXINE 25 MCG TABLET. PO SCH (12:45)
[2019-01-23] MEDS: ASCORBIC ACID 500 MG TABLET PO SCH ×2 (12:46→21:51)
[2019-01-23] MEDS: MULTIVITAMIN with MINERAL TABLET. PO SCH (12:46)
[2019-01-23] MEDS: ATORVASTATIN CALCIUM 20 MG TABLET PO SCH (12:46)
[2019-01-23] MEDS: amLODIPine BESYLATE 5 MG TABLET PO SCH (12:47)
--- NOTE | 2019-01-23 13:17 | NUR ---
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 Has had 1 negative screening 01/25/18. Requires contact precautions until 1 more negative screen.
--- NOTE | 2019-01-23 13:54 | PDOC ---
MARY VARELA MACHINIST INSTRUCTOR 01/23/19 1354: SURGICAL PROGRESS NOTE Subjective patient seen after paged regarding oozing lap site had nurse hold pressure x 20mins --pt seen after there was still some bleeding to umbilical site--I held direct pressure for 15 mins--bleeding currently stopped, tight pressure dressing applied to site. instructed to leave in place and apply abdominal binder--if rebleeds, apply direct pressure again and call d/w Dr Soares Vital Signs Vital Signs Date Time Temp Pulse Resp B/P (MAP) Pulse Ox O2 Delivery O2 Flow Rate FiO2 01/23/19 12:47 103 161/77 01/23/19 12:31 98 Room Air 01/23/19 10:47 98.5 20 98.5 01/23/19 10:40 2.0 I&O Intake and Output 01/23/19 07:00 Intake Total 100 ml Output Total 0 ml Balance 100 ml IV Total 100 ml Output Urine Total 0 ml # Voids 1 Labs Laboratory Tests Test 01/22/19 16:59 01/22/19 19:15 01/22/19 21:59 01/23/19 03:25 Glucose (Fingerstick) 152 mg/dL (70-99) 180 mg/dL (70-99) White Blood Count 20.3 x10^3/uL (4.0-11.0) 22.2 x10^3/uL (4.0-11.0) Red Blood Count 4.51 x10^6/uL (4.30-5.70) 4.29 x10^6/uL (4.30-5.70) Hemoglobin 14.1 g/dL (13.0-17.5) 13.7 g/dL (13.0-17.5) Hematocrit 41.1 % (39.0-53.0) 39.6 % (39.0-53.0) Mean Corpuscular Volume 91 fL (79-100) 92 fL (79-100) Mean Corpuscular Hemoglobin 31 pg (25-35) 32 pg (25-35) Mean Corpuscular Hemoglobin Concent 34 g/dL (31-37) 35 g/dL (31-37) Red Cell Distribution Width 13.3 % (11.5-14.5) 13.2 % (11.5-14.5) Platelet Count 198 x10^3/uL (140-400) 180 x10^3/uL (140-400) Neutrophils (%) (Auto) 76 % (31-73) 75 % (31-73) Lymphocytes (%) (Auto) 11 % (24-48) 12 % (24-48) Monocytes (%) (Auto) 13 % (0-9) 13 % (0-9) Eosinophils (%) (Auto) 0 % (0-3) 0 % (0-3) Basophils (%) (Auto) 0 % (0-3) 0 % (0-3) Neutrophils # (Auto) 15.4 x10^3/uL (1.8-7.7) 16.7 x10^3/uL (1.8-7.7) Lymphocytes # (Auto) 2.3 x10^3/uL (1.0-4.8) 2.6 x10^3/uL (1.0-4.8) Monocytes # (Auto) 2.6 x10^3/uL (0.0-1.1) 2.9 x10^3/uL (0.0-1.1) Eosinophils # (Auto) 0.0 x10^3/uL (0.0-0.7) 0.0 x10^3/uL (0.0-0.7) Basophils # (Auto) 0.1 x10^3/uL (0.0-0.2) 0.1 x10^3/uL (0.0-0.2) Segmented Neutrophils % 69 % (35-66) Band Neutrophils % 7 % (0-9) Lymphocytes % 15 % (24-48) Monocytes % 8 % (0-10) Basophils % 1 % (0-3) Platelet Estimate Adequate (ADEQUATE) Prothrombin Time 14.9 SEC (11.7-14.0) 15.3 SEC (11.7-14.0) Prothromb Time International Ratio 1.2 (0.8-1.1) 1.2 (0.8-1.1) Sodium Level 141 mmol/L (136-145) 143 mmol/L (136-145) Potassium Level 4.1 mmol/L (3.5-5.1) 3.7 mmol/L (3.5-5.1) Chloride Level 103 mmol/L (98-107) 106 mmol/L (98-107) Carbon Dioxide Level 28 mmol/L (21-32) 26 mmol/L (21-32) Anion Gap 10 (6-14) 11 (6-14) Blood Urea Nitrogen 28 mg/dL (8-26) 26 mg/dL (8-26) Creatinine 1.3 mg/dL (0.7-1.3) 1.3 mg/dL (0.7-1.3) Estimated GFR (Cockcroft-Gault) 55.1 55.1 BUN/Creatinine Ratio 22 (6-20) Glucose Level 165 mg/dL (70-99) 118 mg/dL (70-99) Calcium Level 7.6 mg/dL (8.5-10.1) 7.7 mg/dL (8.5-10.1) Total Bilirubin 2.3 mg/dL (0.2-1.0) Aspartate Amino Transf (AST/SGOT) 15 U/L (15-37) Alanine Aminotransferase (ALT/SGPT) 20 U/L (16-63) Alkaline Phosphatase 130 U/L (46-116) Total Protein 7.2 g/dL (6.4-8.2) Albumin 3.0 g/dL (3.4-5.0) Albumin/Globulin Ratio 0.7 (1.0-1.7) Test 01/23/19 06:28 01/23/19 09:14 01/23/19 11:37 Glucose (Fingerstick) 106 mg/dL (70-99) 171 mg/dL (70-99) 184 mg/dL (70-99) Laboratory Tests Test 01/22/19 16:59 01/22/19 19:15 01/22/19 21:59 01/23/19 03:25 Glucose (Fingerstick) 152 mg/dL (70-99) 180 mg/dL (70-99) White Blood Count 20.3 x10^3/uL (4.0-11.0) 22.2 x10^3/uL (4.0-11.0) Red Blood Count 4.51 x10^6/uL (4.30-5.70) 4.29 x10^6/uL (4.30-5.70) Hemoglobin 14.1 g/dL (13.0-17.5) 13.7 g/dL (13.0-17.5) Hematocrit 41.1 % (39.0-53.0) 39.6 % (39.0-53.0) Mean Corpuscular Volume 91 fL (79-100) 92 fL (79-100) Mean Corpuscular Hemoglobin 31 pg (25-35) 32 pg (25-35) Mean Corpuscular Hemoglobin Concent 34 g/dL (31-37) 35 g/dL (31-37) Red Cell Distribution Width 13.3 % (11.5-14.5) 13.2 % (11.5-14.5) Platelet Count 198 x10^3/uL (140-400) 180 x10^3/uL (140-400) Neutrophils (%) (Auto) 76 % (31-73) 75 % (31-73) Lymphocytes (%) (Auto) 11 % (24-48) 12 % (24-48) Monocytes (%) (Auto) 13 % (0-9) 13 % (0-9) Eosinophils (%) (Auto) 0 % (0-3) 0 % (0-3) Basophils (%) (Auto) 0 % (0-3) 0 % (0-3) Neutrophils # (Auto) 15.4 x10^3/uL (1.8-7.7) 16.7 x10^3/uL (1.8-7.7) Lymphocytes # (Auto) 2.3 x10^3/uL (1.0-4.8) 2.6 x10^3/uL (1.0-4.8) Monocytes # (Auto) 2.6 x10^3/uL (0.0-1.1) 2.9 x10^3/uL (0.0-1.1) Eosinophils # (Auto) 0.0 x10^3/uL (0.0-0.7) 0.0 x10^3/uL (0.0-0.7) Basophils # (Auto) 0.1 x10^3/uL (0.0-0.2) 0.1 x10^3/uL (0.0-0.2) Segmented Neutrophils % 69 % (35-66) Band Neutrophils % 7 % (0-9) Lymphocytes % 15 % (24-48) Monocytes % 8 % (0-10) Basophils % 1 % (0-3) Platelet Estimate Adequate (ADEQUATE) Prothrombin Time 14.9 SEC (11.7-14.0) 15.3 SEC (11.7-14.0) Prothromb Time International Ratio 1.2 (0.8-1.1) 1.2 (0.8-1.1) Sodium Level 141 mmol/L (136-145) 143 mmol/L (136-145) Potassium Level 4.1 mmol/L (3.5-5.1) 3.7 mmol/L (3.5-5.1) Chloride Level 103 mmol/L (98-107) 106 mmol/L (98-107) Carbon Dioxide Level 28 mmol/L (21-32) 26 mmol/L (21-32) Anion Gap 10 (6-14) 11 (6-14) Blood Urea Nitrogen 28 mg/dL (8-26) 26 mg/dL (8-26) Creatinine 1.3 mg/dL (0.7-1.3) 1.3 mg/dL (0.7-1.3) Estimated GFR (Cockcroft-Gault) 55.1 55.1 BUN/Creatinine Ratio 22 (6-20) Glucose Level 165 mg/dL (70-99) 118 mg/dL (70-99) Calcium Level 7.6 mg/dL (8.5-10.1) 7.7 mg/dL (8.5-10.1) Total Bilirubin 2.3 mg/dL (0.2-1.0) Aspartate Amino Transf (AST/SGOT) 15 U/L (15-37) Alanine Aminotransferase (ALT/SGPT) 20 U/L (16-63) Alkaline Phosphatase 130 U/L (46-116) Total Protein 7.2 g/dL (6.4-8.2) Albumin 3.0 g/dL (3.4-5.0) Albumin/Globulin Ratio 0.7 (1.0-1.7) Test 01/23/19 06:28 01/23/19 09:14 01/23/19 11:37 Glucose (Fingerstick) 106 mg/dL (70-99) 171 mg/dL (70-99) 184 mg/dL (70-99) KEI SOARES MD 01/24/19 1053: SURGICAL PROGRESS NOTE Assessment/Plan Agree with above MARY VARELA MACHINIST INSTRUCTOR Jan 23, 2019 13:54 KEI SOARES MD Jan 24, 2019 10:53
--- NOTE | 2019-01-23 16:18 | NUR ---
SW consulted for skilled nursing resident. Chart reviewed and pt is a resident at [facility] skilled nursing. PT/OT recommends home with assistance. SW will be available as needed.
[2019-01-23] MEDS: HYDROcodone/APAP 5/325MG 1 TAB TABLET PO PRN ×2 (16:21→21:51)
--- NOTE | 2019-01-23 19:00 | NUR ---
Patient got up with PT/OT and sitting up in chair for dinner. Abdominal binder on. New umbilical site dressing CDI. Patient c/o mild soreness in abdomen. PRN Hydrocodone given. Patient tolerating clear liquids. Diet advanced to regular. Will continue monitor.
[2019-01-23] MEDS: INSULIN GLARGINE SYRINGE. SQ SCH (22:11)
[2019-01-23] MEDS ORDERED: SIMETHICONE 80 MG TAB.CHEW PO PRN (22:15)
[2019-01-23] MEDS ORDERED: METOPROLOL TART IMMED RELEASE 25 MG TABLET. PO SCH (22:30)
--- NOTE | 2019-01-23 23:09 | NUR ---
Multiple couplets and 3-beat runs of vtach noted this shift on tele. Pt asymptomatic. Dr Abernathy notified. Orders received for metoprolol and to to consult cardiology in the morning. Will continue to monitor.
[2019-01-24] MEDS: PIPERACILLIN/TAZOBACTAM 3.375 GM in IV NORMAL SALINE 50ML 50 ML IV SCH ×3 (00:47→12:21)
[2019-01-24 03:55] VITALS: BP 111/69
[2019-01-24 05:05] LABS: BASO % 0 % (0-3); EOS % 0 % (0-3); HEMATOCRIT 37.5 % (39.0-53.0); HEMOGLOBIN 12.7 g/dL (13.0-17.5); LYMPH # 2.1 x10^3/uL (1.0-4.8); LYMPH % 12 % (24-48); MEAN CORPUSCULAR HEMOGLOBIN 31 pg (25-35); MEAN CORPUSCULAR HGB CONC 34 g/dL (31-37); MEAN CORPUSCULAR VOLUME 93 fL (79-100); MONO # 1.8 x10^3/uL (0.0-1.1); MONO % 10 % (0-9); NEUT # 13.5 x10^3/uL (1.8-7.7); NEUT % 78 % (31-73); PLATELET COUNT 196 x10^3/uL (140-400); RED BLOOD COUNT 4.04 x10^6/uL (4.30-5.70); RED CELL DISTRIBUTION WIDTH 13.6 % (11.5-14.5); WHITE BLOOD COUNT 17.4 x10^3/uL (4.0-11.0)
[2019-01-24 05:21] LABS: ALBUMIN 2.5 g/dL (3.4-5.0); ALBUMIN/GLOBULIN RATIO 0.6 (1.0-1.7); CALCIUM 7.4 mg/dL (8.5-10.1); CREATININE 1.2 mg/dL (0.7-1.3); GFR 60.4; POTASSIUM 4.2 mmol/L (3.5-5.1); TOTAL BILIRUBIN 1.3 mg/dL (0.2-1.0); TOTAL PROTEIN 6.8 g/dL (6.4-8.2)
[2019-01-24] MEDS: IV 1/2 NORMAL SALINE 1,000 ML IV SCH (06:14)
[2019-01-24 07:31] VITALS: BP 130/60
[2019-01-24] MEDS: INSULIN LISPRO 300 UNITS/3 ML VIAL. SQ SCH ×2 (08:00→12:25)
--- NOTE | 2019-01-24 08:20 | PDOC2 ---
GOLD MARTIN SLOT FLOOR SUPERVISOR 01/24/19 0820: CARDIAC CONSULT DATE OF CONSULT Date of Consult DATE: 01/24/19 TIME: 08:11 REASON FOR CONSULT Reason for Consult: frequent PVC REFERRING PHYSICIAN Referring Physician: Michela SOURCE Source: Chart review, Patient HISTORY OF PRESENT ILLNESS HISTORY OF PRESENT ILLNESS This is a pleasant 68 yo male admitted for complains of GI symptoms. He has been having diarrhea, vomiting and abdominal pain since Monday. After further testing he has been noted with severe cholecystitis prompting surgery. Post operatively he has been noted with frequent PVCs and brief NSVTs. Prior to his GI symptoms, he has not been having any chest pain, palpitations, SOA, exertional CP or ESTRELLA. He tolerated the surgery well and remains with no cardiac symptoms. He does have right side abd pain but controlled and has been passing gas. PAST MEDICAL HISTORY Past Medical History Cardiovascular: HTN, Hyperlipidemia, Other (LE varicosities. ), karina AFIB Pulmonary: No pertinent hx CENTRAL NERVOUS SYSTEM: Peripheral neuropathy GI: No pertinent hx Heme/Onc: No pertinent hx Musculoskeletal: Osteoarthritis Rheumatologic: No pertinent hx Infectious disease: MRSA ENT: No pertinent hx Renal/: No pertinent hx Endocrine: Diabetes (2), Hypothyroidism Dermatology: Other (diabetic foot ulcer) PAST SURGICAL HISTORY Past Surgical History: Other (post left 3rd metarsal head and distal metarsal resection; left parital laceration repair, multiple left toe amputation; 11/2017 Successful left SFA, popliteal and TP trunk angioplasty for non-healing diabetic foot wound. ) FAMILY HISTORY Family History Coronary Artery Disease (SCD sister at 50 yo) SOCIAL HISTORY Social History Smoke: No ALCOHOL: none Drugs: None Lives: Alone (penitentiary) CURRENT MEDICATIONS CURRENT MEDICATIONS Current Medications Medications (Trade) Dose Ordered Sig/Susan Route PRN Reason Start Time Stop Time Status Last Admin Dose Admin Amlodipine Besylate (Norvasc) 5 mg DAILY PO 01/23/19 09:00 01/23/19 12:47 Atorvastatin Calcium (Lipitor) 20 mg DAILY PO 01/23/19 09:00 01/23/19 12:46 Levothyroxine Sodium (Synthroid) 25 mcg DAILY PO 01/23/19 09:00 01/23/19 12:45 Multivitamins (Thera M Plus) 1 tab DAILY PO 01/23/19 09:00 01/23/19 12:46 Acetaminophen/ Hydrocodone Bitart (Lortab 5/325) 1 tab PRN Q4HRS PRN PO MODERATE PAIN 01/23/19 09:00 01/23/19 21:51 Acetaminophen/ Hydrocodone Bitart (Lortab 5/325) 2 tab PRN Q4HRS PRN PO SEVERE PAIN 01/23/19 09:00 01/24/19 04:08 Insulin Human Lispro (HumaLOG VIAL for OP,RR ONLY) 0-10 units PRN Q1HR PRN SQ PER PROTOCOL 01/23/19 09:45 01/23/19 13:00 DC 01/23/19 09:46 Albuterol Sulfate (Ventolin Neb Soln) 2.5 mg 1X ONCE NEB 01/23/19 09:45 01/23/19 09:47 DC 01/23/19 09:40 Metoprolol Tartrate (Lopressor) 12.5 mg BID PO 01/23/19 22:30 01/23/19 22:43 Simethicone (Gas-X) 80 mg PRN AFTMEALHC PRN PO GAS / BLOATING 01/23/19 22:15 01/23/19 22:42 ALLERGIES ALLERGIES: Coded Allergies: I S O L A T I O N *CONTACT* (Verified Allergy, Unknown, 11/20/17) mrsa lisinopril (Verified Adverse Reaction, Intermediate, COUGH, 02/01/18) ROS Review of System 14 point ROS evaluated with pertinent positives noted per HPI PHYSICAL EXAM General: Alert, Oriented X3, Cooperative, No acute distress HEENT: Atraumatic, Mucous membr. moist/pink Lungs: Clear to auscultation, Normal air movement Heart: Regular rate (SR), Normal S1, Normal S2, Other (2/6 systolic murmur to L LS border) Abdomen: Soft, Other (lap samir site intact with dressing. ) Extremities: No cyanosis, No edema Skin: No breakdown, No significant lesion Neuro: Normal speech, Sensation intact Psych/Mental Status: Mental status NL, Mood NL MUSCULOSKELETAL: Osteoarthritic changes both hands VITALS/I&O VITALS/I&O: Vital Signs Date Time Temp Pulse Resp B/P (MAP) Pulse Ox O2 Delivery O2 Flow Rate FiO2 01/24/19 07:31 97.7 63 18 130/60 (83) 96 Room Air 97.7 01/23/19 10:40 2.0 I & O 01/23/19 01/23/19 01/24/19 15:00 23:00 07:00 Intake Total 100 ml 300 ml 200 ml Output Total 60 ml 400 ml 630 ml Balance 40 ml -100 ml -430 ml LABS Lab: Laboratory Tests Test 01/23/19 09:14 01/23/19 11:37 01/23/19 16:45 01/23/19 20:54 Glucose (Fingerstick) 171 mg/dL (70-99) H 184 mg/dL (70-99) H 198 mg/dL (70-99) H 295 mg/dL (70-99) H Test 01/24/19 03:45 01/24/19 07:08 White Blood Count 17.4 x10^3/uL (4.0-11.0) H Red Blood Count 4.04 x10^6/uL (4.30-5.70) L Hemoglobin 12.7 g/dL (13.0-17.5) L Hematocrit 37.5 % (39.0-53.0) L Mean Corpuscular Volume 93 fL (79-100) Mean Corpuscular Hemoglobin 31 pg (25-35) Mean Corpuscular Hemoglobin Concent 34 g/dL (31-37) Red Cell Distribution Width 13.6 % (11.5-14.5) Platelet Count 196 x10^3/uL (140-400) Neutrophils (%) (Auto) 78 % (31-73) H Lymphocytes (%) (Auto) 12 % (24-48) L Monocytes (%) (Auto) 10 % (0-9) H Eosinophils (%) (Auto) 0 % (0-3) Basophils (%) (Auto) 0 % (0-3) Neutrophils # (Auto) 13.5 x10^3/uL (1.8-7.7) H Lymphocytes # (Auto) 2.1 x10^3/uL (1.0-4.8) Monocytes # (Auto) 1.8 x10^3/uL (0.0-1.1) H Eosinophils # (Auto) 0.0 x10^3/uL (0.0-0.7) Basophils # (Auto) 0.0 x10^3/uL (0.0-0.2) Sodium Level 141 mmol/L (136-145) Potassium Level 4.2 mmol/L (3.5-5.1) Chloride Level 105 mmol/L (98-107) Carbon Dioxide Level 26 mmol/L (21-32) Anion Gap 10 (6-14) Blood Urea Nitrogen 24 mg/dL (8-26) Creatinine 1.2 mg/dL (0.7-1.3) Estimated GFR (Cockcroft-Gault) 60.4 BUN/Creatinine Ratio 20 (6-20) Glucose Level 224 mg/dL (70-99) H Calcium Level 7.4 mg/dL (8.5-10.1) L Total Bilirubin 1.3 mg/dL (0.2-1.0) H Aspartate Amino Transferase (AST) 39 U/L (15-37) H Alanine Aminotransferase (ALT) 39 U/L (16-63) Alkaline Phosphatase 127 U/L (46-116) H Total Protein 6.8 g/dL (6.4-8.2) Albumin 2.5 g/dL (3.4-5.0) L Albumin/Globulin Ratio 0.6 (1.0-1.7) L Glucose (Fingerstick) 183 mg/dL (70-99) H Laboratory Tests 01/24/19 03:45 Laboratory Tests 01/24/19 03:45 ECHOCARDIOGRAM ECHOCARDIOGRAM <Conclusion> Left ventricle systolic function is low normal. The Ejection Fraction is 50%. Trace mitral regurgitation. Mild tricuspid regurgitation. The PA pressure was estimated at 26 mmHg. There is no evidence of significant pericardial effusion. DATE: 11/17/17 0744 ASSESSMENT/PLAN ASSESSMENT/PLAN 1. Acute cholecystitis: S/P Lap samir POD#1. tolerated surgery 2. NSVT: multiple brief episodes. possible stress response to surgery/infection. no cardiac symptoms. Mg/K nml. 3. HTN: controlled. 4. DM2/HLP 5. Hypothyroidism 6. PAD: prior ELECTRIC SWITCH REPAIRER to left SFA, popliteal and TP trunk. Clinically stable. no wounds, no claudications Recommendations 1. Check TSH and TTE 2. Continue with ASA. discontinue plavix. 3. Agree with starting on metoprolol. May decrease other BP med dosing per BP trend. 4. Continue with secondary prevention. 5. Follow up in office. NABILA GAMINO MD 01/24/19 1600: CARDIAC CONSULT ASSESSMENT/PLAN ASSESSMENT/PLAN Pt. seen and examined. Agree with above PAROLE HEARING OFFICER note. Frequent PVC's likely due to post-op issues. Lytes wnl. Ok to DC from CV standpoint. LLE wound well healed. GOLD MARTIN APRN Jan 24, 2019 08:20 NABILA GAMINO MD Jan 24, 2019 16:00
[2019-01-24] MEDS: MULTIVITAMIN with MINERAL TABLET. PO SCH (09:10)
[2019-01-24] MEDS: LEVOTHYROXINE 25 MCG TABLET. PO SCH (09:10)
[2019-01-24] MEDS: amLODIPine BESYLATE 5 MG TABLET PO SCH (09:11)
[2019-01-24] MEDS: ATORVASTATIN CALCIUM 20 MG TABLET PO SCH (09:11)
[2019-01-24] MEDS: ASCORBIC ACID 500 MG TABLET PO SCH (09:11)
[2019-01-24] MEDS: glipiZIDE 5 MG TABLET PO SCH (09:12)
[2019-01-24] MEDS: HYDROcodone/APAP 5/325MG 1 TAB TABLET PO PRN (10:16)
--- NOTE | 2019-01-24 10:18 | PDOC ---
[employer] PROGRESS NOTE Chief Complaint Chief Complaint The patient is a 68-year-old male who was admitted with abdominal pain and findings consistent with acute cholecystitis. Surgical treatment was offered by means of a laparoscopic cholecystectomy. The risks of surgery were discussed which include bleeding, infection, bile duct injury, bile leak, pain, the potential for additional surgeries or procedures. The patient understands and would like to proceed. The patient was seen and examined post-operatively. The patient is currently using a IVA drain, which appeared to be functioning normally. There was minor bleeding around the surgical site. History of Present Illness History of Present Illness 01/24/19 Pt seen and examined. Post-op lap samir 01/22/19. Pt was sitting up and eating breakfast, in no acute distress. Pt wearing abdominal binder and has IVA drain. Vitals/I&O Vitals/I&O: Vital Signs Date Time Temp Pulse Resp B/P (MAP) Pulse Ox O2 Delivery O2 Flow Rate FiO2 01/24/19 09:11 63 130/60 01/24/19 07:31 97.7 18 96 Room Air 97.7 01/23/19 10:40 2.0 I & O 01/23/19 01/23/19 01/24/19 14:59 22:59 06:59 Intake Total 200 ml 300 ml 200 ml Output Total 60 ml 400 ml 630 ml Balance 140 ml -100 ml -430 ml Physical Exam General: Alert, Oriented X3, Cooperative Heart: Regular rate Lungs: Clear Abdomen: Normal bowel sounds, Soft (tender with palpation RUQ), No tenderness, No hepatosplenomegaly, Other (pt wearing abdominal binder) Extremities: No clubbing, No cyanosis Skin: No rashes, No breakdown Labs Labs: Laboratory Tests Test 01/23/19 11:37 01/23/19 16:45 01/23/19 20:54 01/24/19 03:45 Glucose (Fingerstick) 184 mg/dL (70-99) 198 mg/dL (70-99) 295 mg/dL (70-99) White Blood Count 17.4 x10^3/uL (4.0-11.0) Red Blood Count 4.04 x10^6/uL (4.30-5.70) Hemoglobin 12.7 g/dL (13.0-17.5) Hematocrit 37.5 % (39.0-53.0) Mean Corpuscular Volume 93 fL (79-100) Mean Corpuscular Hemoglobin 31 pg (25-35) Mean Corpuscular Hemoglobin Concent 34 g/dL (31-37) Red Cell Distribution Width 13.6 % (11.5-14.5) Platelet Count 196 x10^3/uL (140-400) Neutrophils (%) (Auto) 78 % (31-73) Lymphocytes (%) (Auto) 12 % (24-48) Monocytes (%) (Auto) 10 % (0-9) Eosinophils (%) (Auto) 0 % (0-3) Basophils (%) (Auto) 0 % (0-3) Neutrophils # (Auto) 13.5 x10^3/uL (1.8-7.7) Lymphocytes # (Auto) 2.1 x10^3/uL (1.0-4.8) Monocytes # (Auto) 1.8 x10^3/uL (0.0-1.1) Eosinophils # (Auto) 0.0 x10^3/uL (0.0-0.7) Basophils # (Auto) 0.0 x10^3/uL (0.0-0.2) Sodium Level 141 mmol/L (136-145) Potassium Level 4.2 mmol/L (3.5-5.1) Chloride Level 105 mmol/L (98-107) Carbon Dioxide Level 26 mmol/L (21-32) Anion Gap 10 (6-14) Blood Urea Nitrogen 24 mg/dL (8-26) Creatinine 1.2 mg/dL (0.7-1.3) Estimated GFR (Cockcroft-Gault) 60.4 BUN/Creatinine Ratio 20 (6-20) Glucose Level 224 mg/dL (70-99) Calcium Level 7.4 mg/dL (8.5-10.1) Magnesium Level 1.8 mg/dL (1.8-2.4) Total Bilirubin 1.3 mg/dL (0.2-1.0) Aspartate Amino Transf (AST/SGOT) 39 U/L (15-37) Alanine Aminotransferase (ALT/SGPT) 39 U/L (16-63) Alkaline Phosphatase 127 U/L (46-116) Total Protein 6.8 g/dL (6.4-8.2) Albumin 2.5 g/dL (3.4-5.0) Albumin/Globulin Ratio 0.6 (1.0-1.7) Thyroid Stimulating Hormone (TSH) 0.970 uIU/mL (0.358-3.74) Test 01/24/19 07:08 Glucose (Fingerstick) 183 mg/dL (70-99) Review of Systems Review of Systems: Abdominal tenderness No fevers Assessment and Plan Assessmemt and Plan Assessmemt and Plan Assessment: Acute cholecystitis post-op laparoscopic cholecystectomy, abdominal pain Plan: 1. wound care 2. monitor IVA drain 3. continue IV Antibiotics - Zosyn q6h 4. DVT prophylaxis 5. home meds 6. PT/OT 7. full code 8. Discharge when OK with surgery. Comment Review of Relevant I have reviewed the following items billy (where applicable) has been applied. Medications: Current Medications Medications (Trade) Dose Ordered Sig/Susan Route PRN Reason Start Time Stop Time Status Last Admin Dose Admin Metoprolol Tartrate (Lopressor) 12.5 mg BID PO 01/23/19 22:30 01/23/19 22:43 Simethicone (Gas-X) 80 mg PRN AFTMEALHC PRN PO GAS / BLOATING 01/23/19 22:15 01/23/19 22:42 ERIKA REEVES III DO Jan 24, 2019 10:18
[2019-01-24] MEDS ORDERED: METOPROLOL TART IMMED RELEASE 25 MG TABLET. PO SCH (11:00)
--- NOTE | 2019-01-24 11:17 | PDOC ---
SURGICAL PROGRESS NOTE Subjective up to chair tolerating diet pain managed Vital Signs Vital Signs Date Time Temp Pulse Resp B/P (MAP) Pulse Ox O2 Delivery O2 Flow Rate FiO2 01/24/19 10:16 16 96 Room Air 01/24/19 09:11 63 130/60 01/24/19 07:31 97.7 97.7 01/23/19 10:40 2.0 I&O Intake and Output 01/24/19 07:00 Intake Total 600 ml Output Total 1090 ml Balance -490 ml Intake Oral 550 ml IV Total 50 ml Output Urine Total 1000 ml Drainage Total 70 ml Estimated Blood Loss 20 ml General: Alert, Oriented X3, Cooperative, No acute distress Abdomen: Soft, Other (luba serosang, umbilical incision dry now) Labs Laboratory Tests Test 01/22/19 16:59 01/22/19 19:15 01/22/19 21:59 01/23/19 03:25 Glucose (Fingerstick) 152 mg/dL (70-99) 180 mg/dL (70-99) White Blood Count 20.3 x10^3/uL (4.0-11.0) 22.2 x10^3/uL (4.0-11.0) Red Blood Count 4.51 x10^6/uL (4.30-5.70) 4.29 x10^6/uL (4.30-5.70) Hemoglobin 14.1 g/dL (13.0-17.5) 13.7 g/dL (13.0-17.5) Hematocrit 41.1 % (39.0-53.0) 39.6 % (39.0-53.0) Mean Corpuscular Volume 91 fL (79-100) 92 fL (79-100) Mean Corpuscular Hemoglobin 31 pg (25-35) 32 pg (25-35) Mean Corpuscular Hemoglobin Concent 34 g/dL (31-37) 35 g/dL (31-37) Red Cell Distribution Width 13.3 % (11.5-14.5) 13.2 % (11.5-14.5) Platelet Count 198 x10^3/uL (140-400) 180 x10^3/uL (140-400) Neutrophils (%) (Auto) 76 % (31-73) 75 % (31-73) Lymphocytes (%) (Auto) 11 % (24-48) 12 % (24-48) Monocytes (%) (Auto) 13 % (0-9) 13 % (0-9) Eosinophils (%) (Auto) 0 % (0-3) 0 % (0-3) Basophils (%) (Auto) 0 % (0-3) 0 % (0-3) Neutrophils # (Auto) 15.4 x10^3/uL (1.8-7.7) 16.7 x10^3/uL (1.8-7.7) Lymphocytes # (Auto) 2.3 x10^3/uL (1.0-4.8) 2.6 x10^3/uL (1.0-4.8) Monocytes # (Auto) 2.6 x10^3/uL (0.0-1.1) 2.9 x10^3/uL (0.0-1.1) Eosinophils # (Auto) 0.0 x10^3/uL (0.0-0.7) 0.0 x10^3/uL (0.0-0.7) Basophils # (Auto) 0.1 x10^3/uL (0.0-0.2) 0.1 x10^3/uL (0.0-0.2) Segmented Neutrophils % 69 % (35-66) Band Neutrophils % 7 % (0-9) Lymphocytes % 15 % (24-48) Monocytes % 8 % (0-10) Basophils % 1 % (0-3) Platelet Estimate Adequate (ADEQUATE) Prothrombin Time 14.9 SEC (11.7-14.0) 15.3 SEC (11.7-14.0) Prothromb Time International Ratio 1.2 (0.8-1.1) 1.2 (0.8-1.1) Sodium Level 141 mmol/L (136-145) 143 mmol/L (136-145) Potassium Level 4.1 mmol/L (3.5-5.1) 3.7 mmol/L (3.5-5.1) Chloride Level 103 mmol/L (98-107) 106 mmol/L (98-107) Carbon Dioxide Level 28 mmol/L (21-32) 26 mmol/L (21-32) Anion Gap 10 (6-14) 11 (6-14) Blood Urea Nitrogen 28 mg/dL (8-26) 26 mg/dL (8-26) Creatinine 1.3 mg/dL (0.7-1.3) 1.3 mg/dL (0.7-1.3) Estimated GFR (Cockcroft-Gault) 55.1 55.1 BUN/Creatinine Ratio 22 (6-20) Glucose Level 165 mg/dL (70-99) 118 mg/dL (70-99) Calcium Level 7.6 mg/dL (8.5-10.1) 7.7 mg/dL (8.5-10.1) Total Bilirubin 2.3 mg/dL (0.2-1.0) Aspartate Amino Transf (AST/SGOT) 15 U/L (15-37) Alanine Aminotransferase (ALT/SGPT) 20 U/L (16-63) Alkaline Phosphatase 130 U/L (46-116) Total Protein 7.2 g/dL (6.4-8.2) Albumin 3.0 g/dL (3.4-5.0) Albumin/Globulin Ratio 0.7 (1.0-1.7) Test 01/23/19 06:28 01/23/19 09:14 01/23/19 11:37 01/23/19 16:45 Glucose (Fingerstick) 106 mg/dL (70-99) 171 mg/dL (70-99) 184 mg/dL (70-99) 198 mg/dL (70-99) Test 01/23/19 20:54 01/24/19 03:45 01/24/19 07:08 Glucose (Fingerstick) 295 mg/dL (70-99) 183 mg/dL (70-99) White Blood Count 17.4 x10^3/uL (4.0-11.0) Red Blood Count 4.04 x10^6/uL (4.30-5.70) Hemoglobin 12.7 g/dL (13.0-17.5) Hematocrit 37.5 % (39.0-53.0) Mean Corpuscular Volume 93 fL (79-100) Mean Corpuscular Hemoglobin 31 pg (25-35) Mean Corpuscular Hemoglobin Concent 34 g/dL (31-37) Red Cell Distribution Width 13.6 % (11.5-14.5) Platelet Count 196 x10^3/uL (140-400) Neutrophils (%) (Auto) 78 % (31-73) Lymphocytes (%) (Auto) 12 % (24-48) Monocytes (%) (Auto) 10 % (0-9) Eosinophils (%) (Auto) 0 % (0-3) Basophils (%) (Auto) 0 % (0-3) Neutrophils # (Auto) 13.5 x10^3/uL (1.8-7.7) Lymphocytes # (Auto) 2.1 x10^3/uL (1.0-4.8) Monocytes # (Auto) 1.8 x10^3/uL (0.0-1.1) Eosinophils # (Auto) 0.0 x10^3/uL (0.0-0.7) Basophils # (Auto) 0.0 x10^3/uL (0.0-0.2) Sodium Level 141 mmol/L (136-145) Potassium Level 4.2 mmol/L (3.5-5.1) Chloride Level 105 mmol/L (98-107) Carbon Dioxide Level 26 mmol/L (21-32) Anion Gap 10 (6-14) Blood Urea Nitrogen 24 mg/dL (8-26) Creatinine 1.2 mg/dL (0.7-1.3) Estimated GFR (Cockcroft-Gault) 60.4 BUN/Creatinine Ratio 20 (6-20) Glucose Level 224 mg/dL (70-99) Calcium Level 7.4 mg/dL (8.5-10.1) Magnesium Level 1.8 mg/dL (1.8-2.4) Total Bilirubin 1.3 mg/dL (0.2-1.0) Aspartate Amino Transf (AST/SGOT) 39 U/L (15-37) Alanine Aminotransferase (ALT/SGPT) 39 U/L (16-63) Alkaline Phosphatase 127 U/L (46-116) Total Protein 6.8 g/dL (6.4-8.2) Albumin 2.5 g/dL (3.4-5.0) Albumin/Globulin Ratio 0.6 (1.0-1.7) Thyroid Stimulating Hormone (TSH) 0.970 uIU/mL (0.358-3.74) Laboratory Tests Test 01/23/19 11:37 01/23/19 16:45 01/23/19 20:54 01/24/19 03:45 Glucose (Fingerstick) 184 mg/dL (70-99) 198 mg/dL (70-99) 295 mg/dL (70-99) White Blood Count 17.4 x10^3/uL (4.0-11.0) Red Blood Count 4.04 x10^6/uL (4.30-5.70) Hemoglobin 12.7 g/dL (13.0-17.5) Hematocrit 37.5 % (39.0-53.0) Mean Corpuscular Volume 93 fL (79-100) Mean Corpuscular Hemoglobin 31 pg (25-35) Mean Corpuscular Hemoglobin Concent 34 g/dL (31-37) Red Cell Distribution Width 13.6 % (11.5-14.5) Platelet Count 196 x10^3/uL (140-400) Neutrophils (%) (Auto) 78 % (31-73) Lymphocytes (%) (Auto) 12 % (24-48) Monocytes (%) (Auto) 10 % (0-9) Eosinophils (%) (Auto) 0 % (0-3) Basophils (%) (Auto) 0 % (0-3) Neutrophils # (Auto) 13.5 x10^3/uL (1.8-7.7) Lymphocytes # (Auto) 2.1 x10^3/uL (1.0-4.8) Monocytes # (Auto) 1.8 x10^3/uL (0.0-1.1) Eosinophils # (Auto) 0.0 x10^3/uL (0.0-0.7) Basophils # (Auto) 0.0 x10^3/uL (0.0-0.2) Sodium Level 141 mmol/L (136-145) Potassium Level 4.2 mmol/L (3.5-5.1) Chloride Level 105 mmol/L (98-107) Carbon Dioxide Level 26 mmol/L (21-32) Anion Gap 10 (6-14) Blood Urea Nitrogen 24 mg/dL (8-26) Creatinine 1.2 mg/dL (0.7-1.3) Estimated GFR (Cockcroft-Gault) 60.4 BUN/Creatinine Ratio 20 (6-20) Glucose Level 224 mg/dL (70-99) Calcium Level 7.4 mg/dL (8.5-10.1) Magnesium Level 1.8 mg/dL (1.8-2.4) Total Bilirubin 1.3 mg/dL (0.2-1.0) Aspartate Amino Transf (AST/SGOT) 39 U/L (15-37) Alanine Aminotransferase (ALT/SGPT) 39 U/L (16-63) Alkaline Phosphatase 127 U/L (46-116) Total Protein 6.8 g/dL (6.4-8.2) Albumin 2.5 g/dL (3.4-5.0) Albumin/Globulin Ratio 0.6 (1.0-1.7) Thyroid Stimulating Hormone (TSH) 0.970 uIU/mL (0.358-3.74) Test 01/24/19 07:08 Glucose (Fingerstick) 183 mg/dL (70-99) Assessment/Plan s/p samir severe cholecystitis--stable surgically will e-scribe augmentin and reji will need to dc with drain, will ask sw to FU for any discharge needs MARY VARELA APRN Jan 24, 2019 11:17
[2019-01-24 11:24] VITALS: BP 141/59
[2019-01-24] MEDS ORDERED: ASPIRIN ENTERIC COATED 81 MG TABLET.DR. PO SCH (12:00)
[2019-01-24] MEDS ORDERED: HYDR-2761 PO (12:21)
[2019-01-24] MEDS ORDERED: AMOX1TAB61 PO (12:21)
[2019-01-24 12:22] VITALS: BP 141/59
[2019-01-24] MEDS ORDERED: INSULIN LISPRO 300 UNITS/3 ML VIAL. SQ ONE (14:15)
--- NOTE | 2019-01-24 15:03 | CARD ---
MR#: [id number] Date of Study: 01/24/2019 Ordering Physician: GOLD MARTIN, Referring Physician: GOLD MARTIN, Tech: Comfort Gore APPROVED REPORT EXAM: Two-dimensional and M-mode echocardiogram with Doppler and color Doppler. Other Information Quality : AverageHR: 99bpm INDICATION Arrhythmia RISK FACTORS Hypertension Hyperlipidemia Diabetes 2D DIMENSIONS RVDd3.9 (2.9-3.5cm)Left Atrium(2D)4.3 (1.6-4.0cm) IVSd1.2 (0.7-1.1cm)Aortic Root(2D)3.3 (2.0-3.7cm) LVDd4.2 (3.9-5.9cm)LVOT Diameter2.1 (1.8-2.4cm) PWd1.5 (0.7-1.1cm)LVDs2.9 (2.5-4.0cm) FS (%) 31.0 %SV47.4 ml LVEF(%)59.0 (>50%) Aortic Valve AoV Peak Hugo.125.9cm/sAoV VTI31.1cm AO Peak GR.6.3mmHgLVOT VTI 22.84cm AO Mean GR.3mmHg Mitral Valve MV E Eirgepiu88.7cm/sMV DECEL WPRB700tl MV A Gxlkqiyt63.5cm/sE/A Ratio1.0 TDI Lateral E' P. V8.37cm/sMedial E' P. V6.37cm/s E/Lateral E'11.3E/Medial E'14.9 Tricuspid Valve TR P. Ndvprbnw351df/sRAP TIPQIXSE2uaLs TR Peak Gr.49afLoXHCL09tpKx Pulmonary Vein S1 Qpiwxosv81.8cm/sS2 Mfkkarpz39.51cm/s D2 Dcyquicb65.5cm/sPVa kymbhicl773gdfx LEFT VENTRICLE The left ventricle is normal size. There is mild to moderate concentric left ventricular hypertrophy. The left ventricular systolic function is normal. The Ejection Fraction is 50-55%. There is normal L V segmental wall motion. RIGHT VENTRICLE The right ventricle is normal size. There is normal right ventricular wall thickness. The right ventr icular systolic function is normal. ATRIA The left atrium size is normal. The right atrium size is normal. The interatrial septum is intact wit h no evidence for an atrial septal defect or patent foramen ovale as noted on 2-D or Doppler imaging. AORTIC VALVE The aortic valve is normal in structure and function. Doppler and Color Flow revealed no significant aortic regurgitation. There is no significant aortic valvular stenosis. MITRAL VALVE The mitral valve is normal in structure and function. There is no evidence of mitral valve prolapse. There is no mitral valve stenosis. Doppler and Color-flow revealed trace mitral regurgitation. TRICUSPID VALVE The tricuspid valve is normal in structure and function. Doppler and Color Flow revealed trace tricus pid regurgitation with an estimated PAP of 47 mmHg. There is no tricuspid valve stenosis. PULMONIC VALVE The pulmonic valve is not well visualized. Doppler and Color Flow revealed trace pulmonic valvular re gurgitation. GREAT VESSELS The aortic root is normal in size. The IVC was not visualized. PERICARDIAL EFFUSION There is no evidence of significant pericardial effusion. Critical Notification Critical Value: No <Conclusion> The left ventricular systolic function is normal. The Ejection Fraction is 50-55%. There is normal LV segmental wall motion. Trace mitral regurgitation. Trace tricuspid regurgitation with an estimated PAP of 47 mmHg. There is no evidence of significant pericardial effusion. Signed by : Ang Bryant, Electronically Approved : 01/24/2019 15:03:10
--- NOTE | 2019-01-24 16:04 | NUR ---
JOHN consulted for JF. Pt will go home with a IVA drain. JOHN phoned and faxed orders to [facility], RN will see pt on Monday. Pt will f/u with Dr. Soares office in a week. Med orders also sent to pt's Pharmacy ([facility]). Discussed this with Beryl, phone: [phone] from [employer]. Beryl also here to take pt back to senior care and agreeable with dc plan. Discussed with RN.
--- NOTE | 2019-01-24 16:26 | NUR ---
Pt discharged to home with home health. discharge instructions done with Pt, pt's , and field care manager. Prescriptions given to manager entry. Follow up instructions for Dr. Lang and Dr. Soares and phone numbers given to field care manager. Pt left hospital by wheelchair with transportation provided by field care manager.
[2019-01-24] MEDS ORDERED: LACTOBACILLUS RHAMNOSUS GG 1 CAPSULE. PO SCH (21:00)
--- NOTE | 2019-01-25 09:07 | PATHOLOGY ---
[facility] Accession Number: [id number] . 01 Material submitted: . gallbladder - GALLBLADDER AND CONTENTS . 01 Clinical history: . Acute cholecystitis . 02 Diagnosis: Gallbladder, laparoscopic cholecystectomy: - Cholelithiasis. - Acute hemorrhagic and chronic cholecystitis. LBQ 01/24/2019 1603 Local . 02 Comment: There is no evidence of malignancy. (JPM/db; 01/24/2019) . 02 Electronically signed: . Kapil Dickerson MD, Pathologist NPI- [id number] . 01 Gross description: . The specimen is received in formalin labeled "Hai Saeed, gallbladder and contents" and consists of an intact, pink-srinivasan, ragged, and hemorrhagic gallbladder measuring 9.6 x 4.3 x 1.5 cm. The margin is inked black. Opening reveals a lumen filled with pink-red hemorrhagic fluid and multiple black gravel-like calculi measuring up to 0.6 cm. The mucosa is pink-brown, markedly eroded, and hemorrhagic with an average wall thickness of 0.1 cm. No masses are identified. Surplus Property Disposal Agent sections are submitted in A1-A2. (SDY; 01/23/2019) SYU/SYU 01/23/2019 1704 Local . 02 Pathologist provided ICD-10: K80.12 . 02 CPT . 323181 Specimen Comment: A courtesy copy of this report has been sent to Specimen Comment: [phone], . Specimen Comment: Report sent to / DR HERNANDEZ Performed at: [address], [place], [place] [id number] MD Manuel Sanders MD Phone: [phone] Performed at: 02 [facility] [address] [place], [place] [id number] MD Kapil Dickerson MD Phone: [phone]
--- NOTE | 2019-01-26 09:15 | DS ---
DATE OF DISCHARGE: 01/24/2019 ADMISSION DIAGNOSES: Cholecystitis and diabetes. DISCHARGE DIAGNOSIS: Postoperative day-1 laparoscopic cholecystectomy. HOSPITAL COURSE: The patient is a pleasant 68-year-old male, who is slightly cognitively challenged and basically presented with cholecystitis. We admitted him. We consulted General Surgery. He was taken for a lap samir. Post-procedure, he did well. We advanced his diet. We discharged back to his facility. DISPOSITION: Back to the previous facility. ACTIVITY: As tolerated. DIET: Soft mechanical. ACTIVITY: As tolerated. TOTAL TIME: 32 minutes. ERIKA REEVES DO DR: TOÑA/marcos JOB#: [id number] / [id number]
== END 2019-01-24 15:44 | disposition home health service (06) | DRG 417 ==
LOC: 6 SOUTH 14:18
PROVIDERS: ADMIT Internal Medicine; ATTEND Internal Medicine
PROC: BF101ZZ Fluoroscopy of Bile Ducts using Low Osmolar Contrast (ICD-10-PCS; 2019-01-23)
PROC: 0FT44ZZ Resection of Gallbladder, Percutaneous Endoscopic Approach (ICD-10-PCS; principal; 2019-01-23 07:30)
DX: K81.0 Acute cholecystitis (principal); R65.11 Systemic inflammatory response syndrome (SIRS) of non-infectious origin with acute organ dysfunction; I47.2 Ventricular tachycardia; N17.9 Acute kidney failure, unspecified; E03.9 Hypothyroidism, unspecified; E78.5 Hyperlipidemia, unspecified; N30.90 Cystitis, unspecified without hematuria; I48.91 Unspecified atrial fibrillation; M19.90 Unspecified osteoarthritis, unspecified site; I10 Essential (primary) hypertension; E11.42 Type 2 diabetes mellitus with diabetic polyneuropathy; E11.51 Type 2 diabetes mellitus with diabetic peripheral angiopathy without gangrene; K57.90 Diverticulosis of intestine, part unspecified, without perforation or abscess without bleeding; Z82.49 Family history of ischemic heart disease and other diseases of the circulatory system; Z83.3 Family history of diabetes mellitus; Z86.14 Personal history of Methicillin resistant Staphylococcus aureus infection; Z79.4 Long term (current) use of insulin; Z88.8 Allergy status to other drugs, medicaments and biological substances; Z79.899 Other long term (current) drug therapy
CPT/HCPCS: 36415; 74300; 80048; 80053; 82962; 83735; 84443; 85007; 85025; 85610; 88304; 93005; 93306; A7015; J0780; J1100; J1815; J1885; J2001; J2250; J2270; J2405; J2543; J2704; J2710; J3010; J3490; J7030; J7120; J7613; Q9967; 97110; 97116; 97530; 97535; G0378

== ENCOUNTER → 2019-04-02 | Outpatient (CLI) | payer MEDICARE, MEDICAID ==
[~2019-04-02] MED LIST changes: +AMOX1TAB61 PO; +ATOR20TA58 PO; +HYDR-2761 PO; +INSU100I13 SQ; +MULT-638 PO
--- NOTE | 2019-04-02 12:52 | RAD ---
MR#: [id number] Date of Study: 04/02/2019 Ordering Physician: NABILA GAMINO, Referring Physician: NABILA GAMINO, Tech: MARGARET Bruce, RDMS, RTR APPROVED REPORT Patient Location: OUT-PATIENT Indications PAD Risk Factors Hypertension Diabetes VELOCITY AND DOPPLER WAVEFORM ANALYSIS RIGHT cm/secWaveformSeverity LEFT cm/secWaveform Severity pCFA 103.3BiphasicpCFA 123.1Biphasic Prof Fem Art. 151.5Prof Fem Art. 212.1 Fem Art Prox. 127.3BiphasicFem Art Prox. 72.3Biphasic Fem Art Mid. 113.6BiphasicFem Art Mid. 327.2Monophasic Fem Art Dist. 79.5BiphasicFem Art Dist. 120.3Monophasic Pop Art(Fossa) 64.3TriphasicPop Art(AK) 144.6Triphasic EDUCATIONAL FUNDRAISING DIRECTOR Dist. 33.9MonophasicPTA Dist. 140.0Monophasic Per Art Dist.92.5MonophasicPer Art Dist.55.7Monophasic ANA Dist. 20.2MonophasicATA Dist. 56.2Monophasic DPA 47MonophasicDPA 17Monophasic Findings Gomez scale images of the bilateral lower extremity arterial vessels reveals moderate diffuse plaque. On the right side there are normal velocities in the common femoral, superficial femoral and poplitea l arteries with mostly biphasic waveforms. Below the knee there are monophasic waveforms suggestive o f diffuse disease with likely a greater than 50% stenosis involving the peroneal artery. Nonetheless there is three-vessel patency On the left there are mostly biphasic waveforms in the common femoral and proximal superficial femora l artery. There is likely a greater than 50% stenosis involving the mid superficial femoral artery wi th subsequent monophasic waveforms. Normal popliteal velocities are noted. There are monophasic wavef orms below the knee with likely a greater than 50% stenosis involving the posterior tibial artery wit h nonetheless three-vessel patency. Critical Notification Critical Value: Yes <Conclusion> 1. Mild right above knee disease and likely moderate diffuse below-knee disease 2. Moderate to severe left SFA stenosis with moderate diffuse below-knee disease on the left side. Signed by : Nabila Gamino, Electronically Approved : 04/02/2019 12:52:03
== END | disposition home or self-care (01) ==
LOC: US 09:36
PROVIDERS: ATTEND Internal Medicine Cardiovascular Disease
DX: I70.293 Other atherosclerosis of native arteries of extremities, bilateral legs (principal)
CPT/HCPCS: 93925

== ENCOUNTER → 2019-05-08 | Outpatient (CLI) | payer MEDICARE, MEDICAID ==
[~2019-05-08] MED LIST changes: +FURO-68 PO; +GADOTERATE 7.5 MMOL/15ML VIAL. IVP ONE; +NAPH15DR56 OP
[2019-05-08 12:38] LABS: CALCIUM 9.3 mg/dL (8.5-10.1); CREATININE 1.2 mg/dL (0.7-1.3); GFR 60.4; POTASSIUM 4.3 mmol/L (3.5-5.1)
--- NOTE | 2019-05-08 18:52 | RAD ---
MRI study of the left foot with and without contrast Clinical indications: Nonhealing wounds of the left foot. TECHNIQUE: Pre and postcontrast enhanced MRI sequences of the left foot were performed in all 3 planes. A total of 15 mL of Dotarem was given intravenously. COMPARISON: Radiographic study of the left foot dated April 16, 2019. MRI study of the left foot dated January 18, 2018. FINDINGS: There has been amputation of the first digit at the level of the proximal shaft of the first metatarsal bone. There has been amputation of the third digit at the level of the distal metaphysis of the third metatarsal bone. There has been amputation of the fourth digit at the level of the distal metaphysis of the fourth proximal phalanx. Chronic nonhealed oblique fracture of the distal epiphysis and metaphysis of the second metatarsal bone is seen. This is unchanged. No T1 marrow signal abnormality or cortical erosion is seen elsewhere and therefore, no osteomyelitis is seen. No new fracture is evident. There is degenerative/stress reaction bone marrow edema involving the third and fourth and fifth tarsal metatarsal joints. No significant soft tissue edema is evident. No soft tissue abscess is evident. No tenosynovitis or tendon rupture is seen. IMPRESSION: No osteomyelitis. 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 Electronically signed by: Yinka Worrell MD (05/08/2019 3:22 PM) [id number]
== END ==
LOC: MRI 10:48
PROVIDERS: ATTEND Emergency Medicine Undersea and Hyperbaric Medicine
DX: E11.621 Type 2 diabetes mellitus with foot ulcer (principal); L97.522 Non-pressure chronic ulcer of other part of left foot with fat layer exposed
CPT/HCPCS: 36415; 73720; 80048; A9575

== ENCOUNTER 2019-05-23 07:18 | Observation (INO) | payer MEDICARE, MEDICAID ==
[~2019-05-23] VITALS: Ht 162.6 cm; Wt 83.1 kg
[2019-05-23] VITALS (27 sets, daily range): BP systolic 87–181; BP diastolic 52–86
[~2019-05-23 07:18] MED LIST changes: -FURO-68 PO; -GADOTERATE 7.5 MMOL/15ML VIAL. IVP ONE; -NAPH15DR56 OP
[2019-05-23] MEDS ORDERED: LIDOCAINE 1% Multi-Dose 20 ML VIAL. ONE (07:48)
[2019-05-23] MEDS ORDERED: FURO-68 PO (07:49)
[2019-05-23] MEDS ORDERED: NAPH15DR56 OP (07:49)
[2019-05-23] MEDS ORDERED: LISI-334 PO (07:49)
[2019-05-23] MEDS ORDERED: HEPARIN for ARTERIAL LINE 1,500 ML ONE (07:49)
[2019-05-23] MEDS ORDERED: METO25TA4 PO (07:49)
[2019-05-23] MEDS ORDERED: IODIXANOL 320 MG/ML 100 ML VIAL. ONE (07:49)
[2019-05-23] MEDS ORDERED: MIDAZOLAM HCL/PF 2 MG/2 ML VIAL. ONE ×2 (07:58→09:52)
[2019-05-23] MEDS ORDERED: fentaNYL PF VIAL 100 MCG/2 ML VIAL ONE ×2 (07:58→09:52)
[2019-05-23] MEDS ORDERED: IODIXANOL 320 MG/ML 100 ML VIAL. IART ONE (08:15)
[2019-05-23] MEDS ORDERED: CONTRAST GIVEN. MC PRN (08:15)
[2019-05-23] MEDS ORDERED: LIDOCAINE 1% Multi-Dose 20 ML VIAL. INJ ONE (08:15)
[2019-05-23] MEDS ORDERED: fentaNYL PF VIAL 100 MCG/2 ML VIAL IV ONE (08:15)
[2019-05-23] MEDS ORDERED: MIDAZOLAM HCL/PF 2 MG/2 ML VIAL. IV ONE (08:15)
[2019-05-23 08:23] LABS: HEMATOCRIT 40.4 % (39.0-53.0); HEMOGLOBIN 14.1 g/dL (13.0-17.5); RED BLOOD COUNT 4.43 x10^6/uL (4.30-5.70); WHITE BLOOD COUNT 9.7 x10^3/uL (4.0-11.0)
[2019-05-23 08:25] LABS: CALCIUM 8.3 mg/dL (8.5-10.1); CREATININE 1.2 mg/dL (0.7-1.3); GFR 60.4; POTASSIUM 4.2 mmol/L (3.5-5.1)
[2019-05-23 08:36] LABS: PROTHROMBIN TIME PATIENT 13.1 SEC (11.7-14.0)
[2019-05-23] MEDS ORDERED: HEPARIN for IV BOLUS 10,000 UNIT/10 ML VIAL. ONE (09:03)
[2019-05-23] MEDS ORDERED: HEPARIN for IV BOLUS 10,000 UNIT/10 ML VIAL. IV ONE (09:30)
[2019-05-23] MEDS ORDERED: NITROGLYCERIN 200 MCG/2 ML SYRINGE FOR CATH/VASC LAB. IART ONE (10:00)
[2019-05-23] MEDS ORDERED: CLOPIDOGREL BISULFATE 75 MG TABLET PO ONE (10:15)
[2019-05-23] MEDS ORDERED: CLOPIDOGREL BISULFATE 75 MG TABLET ONE (10:23)
--- NOTE | 2019-05-23 16:41 | NUR ---
Report called to Sonia WEST on regarding patient's procedure this morning. Vitals have been stable and patient's groin site is soft with just a slight shadow on his dressing. Patient can sit up at 1700. Wound care is following patient for his wound on left foot. Dr. Lang wants patient observed overnight since resources for patient care are limited at home.
--- NOTE | 2019-05-23 18:58 | CARD ---
MR#: [id number] Date of Study: 05/23/2019 Ordering Physician: NABILA LANG, Referring Physician: NABILA LANG, Tech: RT Eloisa (R) APPROVED REPORT Patient StatusOUT-PATIENT Strip Presser: Shandra Jenkins RT (R) Procedure(s) performed: Fluoro time: 20.1 min Dose: 58 Gycm2 Contrast: 110ml visipaque Moderate Sedation: 90 MINS Aortogram with left leg ileofemoral run-off BOATING SAFETY OFFICER of the LSFA HISTORY The patient is a 68 year-old male with a history of : diabetes mellitus with treatment, hypertension, dyslipidemia. INDICATION FOR PROCEDURE The indication(s) include : Rest pain: , non-healing denzel category 5 . PROCEDURE NARRATIVE After appropriate informed consent the patient was brought to the catheterization lab. The bilateral groins were prepped and draped in usual sterile fashion. Under 2% lidocaine local anest hesia a 5 Argentine sheath was placed in the right common femoral artery. There was significant difficul ty placing the sheath due to significant scar tissue. Ultimately, a 5 Argentine sheath was able to be pl aced after serial dilation. Next, a Omni Flush catheter was used to perform a digital subtraction angiography of the aorta and il iac vessels. Next the catheter was used to direct a J-tipped guidewire into the left external iliac a rtery and a glide catheter was placed at that position. Left lower 70 runoff images were obtained. Findings: Aorta: No significant disease Bilateral renal arteries are patent Bilateral common iliac vessels do not reveal any disease Bilateral external iliac arteries are without any significant disease Right common femoral artery is free of any significant disease Left common femoral artery has no significant disease Left profunda femoral artery has no significant disease Left superficial femoral artery has a proximal 40-50% stenosis. The mid to distal vessel has diffuse 80% stenosis Left popliteal artery had no significant disease Left anterior tibial artery is occluded in the midportion Left peroneal artery is occluded proximally Left posterior tibial artery is patent and is a dominant runoff to the left foot. Interventional technique: Given the patient's nonhealing left lower 70 wound and intervention was performed. The patient was gi federico intravenous heparin for an ACT greater than 200. Next, the 5 Argentine sheath was exchanged for a 6 Argentine destination sheath. Next, a command 0.018 inch wire was placed at the distal popliteal tibiope roneal junction. Balloon angioplasty of the mid and distal SFA was performed with a 5.5 x 120 mm [place] da balloon at nominal pressures. Repeat angiography demonstrated excellent angioplasty result. Theref ore further intervention/stenting was deferred. No significant complications were noted. Finally, a p ullback maneuver was performed with a glide catheter placed in the mid SFA and pulled back into the l eft external iliac artery. There was an 8 mm pullback gradient and therefore the proximal SFA was not intervened upon. The patient received Plavix at case completion. The right common femoral arterial sheath was exchanged for a short 6 Argentine sheath and hemostasis was achieved via manual compression 2 hours after the procedure. Conclusion 1. [place] category 5 lower extremity arterial disease 2. Successful balloon angioplasty with a 5.5 mm [place] balloon of the mid and distal SFA. Recommendations Aggressive Medical Therapy Signed by : Nabila Lang, Electronically Approved : 05/23/2019 18:58:02
[2019-05-23] MEDS ORDERED: ACETAMINOPHEN 325 MG TABLET. PO PRN (20:15)
[2019-05-23] MEDS: ASCORBIC ACID 500 MG TABLET PO SCH (20:43)
[2019-05-23] MEDS: METOPROLOL TART IMMED RELEASE 25 MG TABLET. PO SCH (20:44)
[2019-05-23] MEDS ORDERED: TETRAHYDROZOLINE 0.05% OPHTH SOLUTION 15ML BOTTLE. OU PRN (20:45)
[2019-05-23] MEDS ORDERED: INSULIN GLARGINE SYRINGE. SQ SCH (21:00)
[2019-05-23] MEDS ORDERED: ATORVASTATIN CALCIUM 20 MG TABLET PO SCH (21:00)
[2019-05-24 02:38] VITALS: BP 136/67
[2019-05-24] MEDS ORDERED: LEVOTHYROXINE 25 MCG TABLET. PO SCH (06:00)
[2019-05-24 07:00] VITALS: BP 125/84
[2019-05-24] MEDS: ASCORBIC ACID 500 MG TABLET PO SCH (08:39)
[2019-05-24] MEDS: METOPROLOL TART IMMED RELEASE 25 MG TABLET. PO SCH (08:40)
[2019-05-24 08:42] VITALS: BP 125/84
--- NOTE | 2019-05-24 08:59 | NUR ---
IP: Pt has a hx of + mrsa screen and +mrsa in L foot wound on 11/16/17. Pt has one negative screen. Pt to be in contact precautions until a second screen is obtained and verified and no open wounds.
[2019-05-24] MEDS ORDERED: MULTIVITAMIN with MINERAL TABLET. PO SCH (09:00)
[2019-05-24] MEDS ORDERED: LISINOPRIL 20 MG TABLET PO SCH (09:00)
[2019-05-24] MEDS ORDERED: amLODIPine BESYLATE 5 MG TABLET PO SCH (09:00)
[2019-05-24] MEDS ORDERED: ASPIRIN ENTERIC COATED 81 MG TABLET.DR. PO SCH (09:00)
[2019-05-24] MEDS ORDERED: FUROSEMIDE 40 MG TABLET. PO SCH (09:00)
[2019-05-24] MEDS ORDERED: CETIRIZINE HCL 10 MG TABLET. PO SCH (09:00)
--- NOTE | 2019-05-24 12:01 | PDOC3 ---
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, HLP, HTN Brief Hospital Course Allergies Allergies Coded Allergies Type Severity Reaction Last Updated Verified I S O L A T I O N *CONTACT* Allergy Unknown 11/20/17 Yes Vital Signs Vital Signs Date Time Temp Pulse Resp B/P (MAP) Pulse Ox O2 Delivery O2 Flow Rate FiO2 05/24/19 11:00 64 05/24/19 08:42 125/84 05/24/19 08:00 Room Air 05/24/19 07:00 98.1 18 96 98.1 Lab Results Laboratory Tests Test 05/23/19 08:10 05/23/19 09:37 05/23/19 10:10 05/23/19 17:10 White Blood Count 9.7 x10^3/uL (4.0-11.0) Red Blood Count 4.43 x10^6/uL (4.30-5.70) Hemoglobin 14.1 g/dL (13.0-17.5) Hematocrit 40.4 % (39.0-53.0) Mean Corpuscular Volume 91 fL (79-100) Mean Corpuscular Hemoglobin 32 pg (25-35) Mean Corpuscular Hemoglobin Concent 35 g/dL (31-37) Red Cell Distribution Width 13.0 % (11.5-14.5) Platelet Count 185 x10^3/uL (140-400) Prothrombin Time 13.1 SEC (11.7-14.0) Prothromb Time International Ratio 1.0 (0.8-1.1) Sodium Level 146 mmol/L (136-145) Potassium Level 4.2 mmol/L (3.5-5.1) Chloride Level 107 mmol/L (98-107) Carbon Dioxide Level 28 mmol/L (21-32) Anion Gap 11 (6-14) Blood Urea Nitrogen 25 mg/dL (8-26) Creatinine 1.2 mg/dL (0.7-1.3) Estimated GFR (Cockcroft-Gault) 60.4 Glucose Level 131 mg/dL (70-99) Calcium Level 8.3 mg/dL (8.5-10.1) Activated Clotting Time 243 sec (92-181) 231 sec (92-181) Glucose (Fingerstick) 176 mg/dL (70-99) Test 05/23/19 20:50 05/24/19 08:08 05/24/19 11:51 Glucose (Fingerstick) 233 mg/dL (70-99) 123 mg/dL (70-99) 296 mg/dL (70-99) Laboratory Tests Test 05/23/19 17:10 05/23/19 20:50 05/24/19 08:08 05/24/19 11:51 Glucose (Fingerstick) 176 mg/dL (70-99) 233 mg/dL (70-99) 123 mg/dL (70-99) 296 mg/dL (70-99) Brief Hospital Course Mr. Saeed is a 68 old male admitted for planned femoral runoff due to complains of LLE pain . 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 Pt tolerated procedure well, no immediate complications. Right groin arteriotomy site intact dried small sanguinous drain to dressing which will be removed prior to DC. No hematoma or swelling. Neurovascular status to bilateral LE intact and ambulatory without difficulty. AOx3, LSCTA, abd soft and nontender. Denies any CP, SOA and maintaining SR with VSS. He is to continue baby ASA with 1 month of plavix with Rx provided. Continue with secondary prevention and DM regimen with metformin on hold till tomorrow. Post femoral cath instructions with written forms given to and pt. Follow up as scheduled. Encouraged graded increase in exercise. Information will further be relayed to his pillowcase folder. Discharge Information Condition at Discharge: Stable Follow Up: Weeks (6) Disposition/Orders: D/C to Home Scheduled Acetaminophen (Tylenol) 325 Mg Tablet, 325 MG PO PRN Q4HRS, #30 (Reported) Entered as Reported by: HANNA CHASE on 01/23/18 1716 Last Action: Continued on 05/23/192009 by CHIO STEEN Amlodipine Besylate (Amlodipine Besylate) 5 Mg Tablet, 5 MG PO DAILY for htn, (Reported) Entered as Reported by: ANDREY AGUILAR on 01/22/19 1505 Last Taken: Unknown Dose on 05/23/19 Last Action: Continued on 05/23/192009 by CHIO STEEN Ascorbic Acid (Ascorbic Acid) 500 Mg Tablet, 500 MG PO BID, (Reported) Entered as Reported by: HANNA CHASE on 01/23/18 1720 Last Action: Continued on 05/23/192009 by CHIO STEEN Aspirin (Aspir 81) 81 Mg Tablet.dr, 81 MG PO DAILY, #30 Ref 5 (Reported) Entered as Reported by: Laisha Garcia on 06/17/15 0857 Last Taken: Unknown Dose on 05/23/19 Last Action: Continued on 05/23/192009 by CHIO STEEN Atorvastatin Calcium (Atorvastatin Calcium) 20 Mg Tablet, 1 TAB PO DAILY for high cholesterol, #30 Ref 5 (Reported) Entered as Reported by: ANDREY AGUILAR on 01/22/19 1531 Last Action: Continued on 05/23/192009 by CHIO STEEN Clopidogrel Bisulfate (Clopidogrel) 75 Mg Tablet, 1 TAB PO DAILY for THINNER, #90 Ref 1 (Reported) Entered as Reported by: LOR PEACOCK on 05/24/19 1330 Furosemide (Lasix) 40 Mg Tablet, 1 TAB PO DAILY for rx for 30 Days, #30 Ref 0 (Reported) Entered as Reported by: REAL ADVID on 05/23/19 0749 Last Action: Continued on 05/23/192009 by CHIO STEEN Insulin Glargine,Hum.rec.anlog (Lantus Solostar) 100 Unit/1 Ml Insuln.pen, 15 UNIT SQ QHS for diabetes, #15 Ref 3 (Reported) Entered as Reported by: ANDREY AGUILAR on 01/22/19 1531 Last Taken: 11 units last night on 05/22/19 Last Action: Converted on 05/23/192009 by CHIO STEEN Levothyroxine Sodium (Levothyroxine Sodium) 25 Mcg Tablet, 25 MCG PO DAILY, #30 Ref 5 (Reported) Entered as Reported by: Laisha Garcia on 06/17/15 0857 Last Action: Continued on 05/23/192009 by CHIO STEEN Lisinopril (Lisinopril) 20 Mg Tablet, 1 TAB PO DAILY for rx, #30 Ref 5 (Reported) Entered as Reported by: REAL DAVID on 05/23/19 0749 Last Taken: Unknown Dose on 05/23/19 Last Action: Continued on 05/23/192009 by CHIO STEEN Loratadine (Loratadine) 10 Mg Tablet, 10 MG PO DAILY, (Reported) Entered as Reported by: PRASANTH BALDWIN [facility] on 01/25/18 1622 Last Action: Converted on 05/23/192009 by CHIO STEEN Metformin Hcl (Metformin Hcl) 500 Mg Tablet, 500 MG PO BIDWMEALS, #60 Ref 3 (Reported) Entered as Reported by: Laisha Garcia on 06/17/15 0857 Last Action: Reviewed on 05/23/19 0750 by REAL DAVID Metoprolol Tartrate (Metoprolol Tartrate) 25 Mg Tablet, 1 TAB PO BID for rx, #180 Ref 1 (Reported) Entered as Reported by: REAL DAVID on 05/23/19 0749 Last Taken: Unknown Dose on 05/23/19 Last Action: Continued on 05/23/192009 by CHIO STEEN Multivits,Ca,Minerals/Iron/FA (Thera M Plus Tablet) 1 Each Tablet, 1 EACH PO DAILY for supplment, (Reported) Entered as Reported by: ANDREY AGUILAR on 01/22/19 1531 Last Action: Continued on 05/23/192009 by CHIO STEEN Scheduled PRN Naphazoline HCl/Glycerin (Clear Eyes Cooling Comfort Drp) 15 Ml Drops, 15 ML OP PRN PRN for DRY EYE, (Reported) Entered as Reported by: REAL DAVID on 05/23/19 0749 Last Action: Converted on 05/23/192009 by CHIO STEEN Discontinued Medications Glipizide (Glipizide) 5 Mg Tablet, 1 TAB PO BIDWMEALS, #60 Ref 3 (Reported) Entered as Reported by: HANNA CHASE on 01/23/18 1717 Last Action: Reviewed on 05/23/192005 by CHIO STEEN Patient Instructions Patient Instructions GENERAL INSTRUCTIONS: 1. Your dressing should be removed prior to leaving the hospital. 2. It is OK to shower the day after your procedure. 3. If you received stents, be sure to carry your stent information card with you in your wallet/purse at all times. 4. Call the office immediately at [phone] if you notice any fever or if there is redness, worsening tenderness/pain, increased bruising, or drainage from the puncture site. 5. Should you have bleeding from the site, lie down immediately & put pressure on the site. The pressure should be hard enough to stop the bleeding. Have the nearest person call 911. DO NOT try to drive to the ER with active bleeding. 6. If you notice a change in color, coolness to touch, or loss of feeling in the affected extremity, come to the emergency room. Please have someone drive you or call 911 if no one is available. DO NOT drive yourself. 7. If you normally take glucophage (metformin), please do not take this medici ne for 48 hours following your procedure. 8. DO NOT STOP TAKING YOUR PLAVIX OR ASPIRIN UNLESS IT IS CLEARED BY A REPR ESENTATIVE OF YOUR COOKER LOADER AT OUR OFFICE. 9. QUIT SMOKING: the [place] [employer], [place] [employer], & [place] [employer] have cessation resources available on their websites 10. Please have someone available to drive you home from the hospital as you may be limited by sedation medications given during the procedure. Femoral (Groin) access: 1. Do no lifting, pushing, pulling, bending, stooping, or recurrent stair climbing for 3 days following your procedure. 2. Once past the first 3 days, do not do any HEAVY exertion or lifting for one week following the procedure. No gym workouts, running, lifting greater than a gallon of milk, etc 3. Do not submerge in bath or pool for one week. OK to drive 3 days following your procedure, but if going long distance, do not go alone & take hourly breaks to get out of car and walk around. Call the office at [phone] for any questions or concerns. GOLD MARTIN APRN May 24, 2019 12:01
[2019-05-24] MEDS ORDERED: CLOPIDOGREL BISULFATE 75 MG TABLET PO ONE (12:15)
[2019-05-24] MEDS ORDERED: CLOP75TA PO (13:30)
== END 2019-05-24 13:35 | disposition home health service (06) ==
LOC: CCL 07:18 → 2 NORTH 16:21
PROVIDERS: ADMIT Internal Medicine Cardiovascular Disease; ATTEND Internal Medicine Cardiovascular Disease
DX: E11.51 Type 2 diabetes mellitus with diabetic peripheral angiopathy without gangrene (principal); E78.5 Hyperlipidemia, unspecified; I10 Essential (primary) hypertension; E03.9 Hypothyroidism, unspecified; E78.00 Pure hypercholesterolemia, unspecified; E11.40 Type 2 diabetes mellitus with diabetic neuropathy, unspecified; Z89.422 Acquired absence of other left toe(s); Z90.49 Acquired absence of other specified parts of digestive tract; Z79.82 Long term (current) use of aspirin; Z79.84 Long term (current) use of oral hypoglycemic drugs; Z79.899 Other long term (current) drug therapy
CPT/HCPCS: 36415; 37224; 75625; 75710; 80048; 82962; 85027; 85347; 85610; 96374; C1725; C1769; C1892; C1894; G0378; G0379; J1644; J1815; J2250; J3010; J3490; Q9967; 99152; 99153

== ENCOUNTER → 2019-10-09 | Outpatient (CLI) | payer MEDICARE, MEDICAID ==
[~2019-10-09] MED LIST changes: +FURO-68 PO; +NAPH15DR56 OP
--- NOTE | 2019-10-09 12:04 | RAD ---
MR#: [id number] Date of Study: 10/09/2019 Ordering Physician: NABILA GAMINO, Referring Physician: NABILA GAMINO, Tech: Comfort Davila, JENNAMS, RVT, RTR APPROVED REPORT Patient Location: OUT-PATIENT Laterality:Bilateral Indications Unsteady Gait Forgets what he wants to say at times Risk Factors Hypertension: Diabetes PAD Doppler Spectral Velocity Analysis Right Left pCCA 107/17 cm/spCCA 127/17 cm/s mCCA 95/18 cm/smCCA 137/24 cm/s dCCA 102/18 cm/sdCCA 117/21 cm/s Bulb 88/14 cm/sBulb 133/21 cm/s ECA 119/14 cm/sECA 139/12 cm/s pICA 117/25 cm/spICA 62/19 cm/s Ariana 74/22 cm/smICA 103/27 cm/s dICA 42/14 cm/sdICA 114/30 cm/s Vert. 57/13 cm/sVert. 51/10 cm/s ICA/CCA 1.09ICA/CCA 0.90 Findings Grayscale images of the bilateral carotid vessels demonstrates mild luminal irregularities. On the right side no significant carotid occlusive disease overall 0 to less than 50% stenosis based on velocity criteria with normal ICA to CCA ratios. On the left side mildly elevated velocities in the common carotid artery suggestive of 50% stenosis b ut no critical disease noted. No focal obstruction in the internal carotid vessels overall again 0 t o less than 50% stenosis with normal ICA to CCA ratios. Bilateral vertebral velocities are antegrade. Critical Notification Critical Value: No <Conclusion> 1. No significant carotid occlusive disease bilaterally. Signed by : Nabila Gamino, Electronically Approved : 10/09/2019 12:04:20
--- NOTE | 2019-10-09 12:08 | RAD ---
MR#: [id number] Date of Study: 10/09/2019 Ordering Physician: NABILA GAMINO, Referring Physician: NABILA GAMINO, Tech: Comfort Davila, MEERA, RVT, RTR APPROVED REPORT Patient Location: OUT-PATIENT Indications Non-healing Ulcer: PAD Unsteady Gait; Leg Pain Risk Factors Hypertension Diabetes VELOCITY AND DOPPLER WAVEFORM ANALYSIS RIGHT cm/secWaveformSeverity LEFT cm/secWaveform Severity pCFA 114.2pCFA 93.1 dCFA 88.2dCFA 59.6 Prof Fem Art. 142.5Prof Fem Art. 146.2 Fem Art Prox. 155.5Fem Art Prox. 52.5 Fem Art Mid. 232.7Fem Art Mid. 323.9 Fem Art Dist. 127.3Fem Art Dist. 429.7 Pop Art(AK) 47.3Pop Art(AK) 55.4 MOBILE MARKETING SPECIALIST Prox. 40.0PTA Prox. 21.5 MOBILE MARKETING SPECIALIST Dist. MOBILE MARKETING SPECIALIST Dist. 50.1 Per Art Prox. 68.4Per Art Prox. 35.7 ANA Prox. 47.9ATA Prox. 37.3 DPA 47DPA 40 Findings Overall grayscale images demonstrate mild to moderate diffuse atherosclerotic plaque. On the right side there is likely a 50% stenosis involving the mid SFA. Below the knee the posterior tibial artery may be occluded at the distal aspect. Normal peroneal and anterior tibial velocities are noted with mostly monophasic waveforms. On the left side there is likely a greater than 50% stenosis involving the mid to distal SFA and most ly monophasic waveforms. Below the knee there is three-vessel patency but diminished flow consistent with more proximal stenosis. Critical Notification Critical Value: No <Conclusion> 1. Moderate right-sided and moderate to severe left-sided SFA disease. Signed by : Nabila Gamino, Electronically Approved : 10/09/2019 12:08:12
--- NOTE | 2019-10-09 12:14 | RAD ---
MR#: [id number] Date of Study: 10/09/2019 Ordering Physician: NABILA GAMINO, Referring Physician: NABILA GAMINO, Tech: Comfort Davila RDMS, RVT, RTR APPROVED REPORT Patient Location: OUT-PATIENT Exam Type: Ankle to Brachial Index Indications PAD Leg Pain; Unsteady Gait Risk Factors Hypertension Diabetes Pressures/Indices RightABI LeftABI Brachial [id number] 146mmHg.61 Ankle(PT) 155mmHgAnkle(PT) 67mmHg Ankle(DP) 135mmHgAnkle(DP) 90mmHg Findings Left sided KATELYNN is severely diminished at 0.61 and right-sided KATELYNN is within normal limits. Critical Notification Critical Value: No <Conclusion> 1. Severely diminished abnormal KATELYNN on the left side Signed by : Nabila Gamino, Electronically Approved : 10/09/2019 12:14:23
== END | disposition home or self-care (01) ==
LOC: US 08:18
PROVIDERS: ATTEND Internal Medicine Cardiovascular Disease
DX: I70.203 Unspecified atherosclerosis of native arteries of extremities, bilateral legs (principal); E11.51 Type 2 diabetes mellitus with diabetic peripheral angiopathy without gangrene; E11.40 Type 2 diabetes mellitus with diabetic neuropathy, unspecified; E78.5 Hyperlipidemia, unspecified; F70 Mild intellectual disabilities; E03.9 Hypothyroidism, unspecified; F43.22 Adjustment disorder with anxiety; I10 Essential (primary) hypertension; H35.30 Unspecified macular degeneration; R26.89 Other abnormalities of gait and mobility; S98.922A Partial traumatic amputation of left foot, level unspecified, initial encounter; X58.XXXA Exposure to other specified factors, initial encounter; Y93.89 Activity, other specified; Y92.89 Other specified places as the place of occurrence of the external cause; Y99.8 Other external cause status
CPT/HCPCS: 93880; 93922; 93925

== ENCOUNTER → 2019-10-21 | Outpatient (CLI) | payer MEDICARE, MEDICAID | END | disposition home or self-care (01) | LOC: LAB 12:56 | PROVIDERS: ATTEND Internal Medicine Cardiovascular Disease | DX: Z01.818 Encounter for other preprocedural examination (principal); Z11.59 Encounter for screening for other viral diseases; I25.10 Atherosclerotic heart disease of native coronary artery without angina pectoris | CPT/HCPCS: U0003-CS ==

== ENCOUNTER 2019-10-24 09:45 | Observation (INO) | payer MEDICARE, MEDICAID ==
[2019-10-24] VITALS (13 sets, daily range): BP systolic 98–178; BP diastolic 36–81
[~2019-10-24] VITALS: Ht 162.6 cm; Wt 79.0 kg
[2019-10-24 10:47] LABS: HEMATOCRIT 39.8 % (39.0-53.0); HEMOGLOBIN 14.2 g/dL (13.0-17.5); RED BLOOD COUNT 4.33 x10^6/uL (4.30-5.70); RED CELL DISTRIBUTION WIDTH 13.1 % (11.5-14.5); WHITE BLOOD COUNT 9.1 x10^3/uL (4.0-11.0)
[2019-10-24 11:03] LABS: PROTHROMBIN TIME PATIENT 12.8 SEC (11.7-14.0)
[2019-10-24 11:04] LABS: CALCIUM 8.3 mg/dL (8.5-10.1); CREATININE 1.2 mg/dL (0.7-1.3); GFR 60.4; POTASSIUM 4.2 mmol/L (3.5-5.1)
[2019-10-24] MEDS ORDERED: LIDOCAINE 1% Multi-Dose 20 ML VIAL. ONE (11:13)
[2019-10-24] MEDS ORDERED: IODIXANOL 320 MG/ML 100 ML VIAL. ONE (11:13)
[2019-10-24] MEDS ORDERED: HEPARIN for IV BOLUS 10,000 UNIT/10 ML VIAL. ONE (11:17)
[2019-10-24] MEDS ORDERED: fentaNYL PF VIAL 100 MCG/2 ML VIAL ONE ×2 (11:17→12:38)
[2019-10-24] MEDS ORDERED: MIDAZOLAM HCL/PF 2 MG/2 ML VIAL. ONE ×2 (11:17→12:38)
[2019-10-24] MEDS ORDERED: fentaNYL PF VIAL 100 MCG/2 ML VIAL IV ONE ×2 (11:30→13:00)
[2019-10-24] MEDS ORDERED: LIDOCAINE 1% Multi-Dose 20 ML VIAL. INJ ONE (11:30)
[2019-10-24] MEDS ORDERED: MIDAZOLAM HCL/PF 2 MG/2 ML VIAL. IV ONE ×2 (11:30→13:00)
[2019-10-24] MEDS ORDERED: IODIXANOL 320 MG/ML 100 ML VIAL. IART ONE (11:30)
[2019-10-24] MEDS ORDERED: HEPARIN for IV BOLUS 10,000 UNIT/10 ML VIAL. IV ONE (12:15)
[2019-10-24] MEDS ORDERED: NITROGLYCERIN 200 MCG/2 ML SYRINGE FOR CATH/VASC LAB. ONE (12:49)
[2019-10-24] MEDS: NITROGLYCERIN 200 MCG/2 ML SYRINGE FOR CATH/VASC LAB. IART ONE ×2 (12:52→13:00)
[2019-10-24] MEDS ORDERED: CLOPIDOGREL BISULFATE 75 MG TABLET PO ONE (19:00)
[2019-10-24] MEDS ORDERED: POLYVINYL ALCOHOL 1.4% OPHTH SOLUTION 15ML BOTTLE. OU PRN (19:00)
[2019-10-24] MEDS ORDERED: ACETAMINOPHEN 325 MG TABLET. PO PRN (19:00)
[2019-10-24] MEDS ORDERED: INSULIN GLARGINE SYRINGE. SQ SCH (21:00)
[2019-10-24] MEDS: RIVAROXABAN 10 MG TABLET. PO SCH (22:00)
[2019-10-24] MEDS: ASCORBIC ACID 500 MG TABLET PO SCH (22:00)
[2019-10-24] MEDS: METOPROLOL TART IMMED RELEASE 25 MG TABLET. PO SCH (22:01)
[2019-10-25 03:00] VITALS: BP 129/60
[2019-10-25 07:00] VITALS: BP 157/73
[2019-10-25] MEDS ORDERED: LEVOTHYROXINE 25 MCG TABLET. PO SCH (07:00)
[2019-10-25] MEDS ORDERED: metFORMIN 500 MG TABLET PO SCH (08:00)
--- NOTE | 2019-10-25 08:46 | CARD ---
MR#: [id number] Date of Study: 10/24/2019 Ordering Physician: NABILA GAMINO, Referring Physician: NABILA GAMINO, Tech: ESPERANZA AGUEROFERNANDO RTR APPROVED REPORT Patient StatusOUT-PATIENT Pulper Tender: ESPERANZA CERON RTR Procedure(s) performed: MODERATE SEDATION TIME: 108 MINUTES FLUORO TIME: 25.6 MIN DOSE: 65.8 MIN CONTRAST: 93 CC VISI Aortogram with bilateral ileofemoral run-off Complex PVI of the LSFA with stenting and angioplasty. HISTORY : The patient is a 68 year-old male with a history of . INDICATION FOR PROCEDURE The indication(s) include : Bilateral claudication, Positive angiogram for stenosis: Superficial femo ral. PROCEDURE NARRATIVE After appropriate informed consent the patient was brought to the catheterization laboratory. The [facility] groin was prepped and draped in usual sterile fashion. A 5 Sami sheath was placed in the right common femoral artery without any difficulty. Next, a Omni Flush catheter was advanced to the mid a anai and diagnostic angiography was performed. The Omni Flush catheter was used to engage the left c ommon iliac artery and a glide catheter was placed in the left common femoral artery and left lower e xtremity runoff was also performed. Findings: Aorta mild luminal irregularities Bilateral single renal arteries are patent Bilateral common iliac arteries are without significant disease Bilateral external iliac arteries did not show any significant disease Bilateral internal iliac arteries reveal moderate diffuse disease Bilateral common femoral arteries did not show any significant disease The left SFA has diffuse 80 to 90% stenosis extending to the adductor canal. The left popliteal artery is unremarkable The left anterior tibial artery has a distal subtotal occlusion The left posterior tibial artery is unremarkable and has the dominant flow to the foot. The left peroneal artery is diffusely diseased in the proximal to mid segment and distally occluded. Interventional technique: The 5 Sami sheath was replaced with a 6 Sami Veenomeumo destination sheath. Heparin was used for ant icoagulation Next, a command wire was placed in the distal popliteal artery. Next a spider filter de vice was placed given essentially one-vessel runoff. Next over the Viper wire after the filter was p laced balloon angioplasty was performed with a 5 x 150 balloon and then a 6 x 200 mm balloon. The le ft SFA was then stented with a 6.0 x 150 mm Supera self expanding stent. The filter device was remov ed. The final angiography demonstrated excellent stent expansion with patent below-knee vessels. Th e right groin sheath was removed via manual compression and hemostasis was obtained when the ACT was less than 200. Conclusion 1. Successful complex PVI of the left SFA with implantation of a 6.0 x 150 mm Supera stent due to cl audication and nonhealing wounds. Recommendations Plavix 75mg daily Xarelto 2.5mg bid Stop Aspirin while on xarelto and plavix. Continue statin therapy Signed by : Nabila Gamino, Electronically Approved : 10/25/2019 08:46:04
[2019-10-25] MEDS: ASCORBIC ACID 500 MG TABLET PO SCH (08:54)
[2019-10-25] MEDS: METOPROLOL TART IMMED RELEASE 25 MG TABLET. PO SCH (08:56)
[2019-10-25] MEDS: RIVAROXABAN 10 MG TABLET. PO SCH (08:56)
[2019-10-25] MEDS ORDERED: amLODIPine BESYLATE 5 MG TABLET PO SCH (09:00)
[2019-10-25] MEDS ORDERED: CETIRIZINE HCL 10 MG TABLET. PO SCH (09:00)
[2019-10-25] MEDS ORDERED: CLOPIDOGREL BISULFATE 75 MG TABLET PO SCH (09:00)
[2019-10-25] MEDS ORDERED: FUROSEMIDE 40 MG TABLET. PO SCH (09:00)
[2019-10-25] MEDS ORDERED: LISINOPRIL 20 MG TABLET PO SCH (09:00)
[2019-10-25] MEDS ORDERED: MULTIVITAMIN with MINERAL TABLET. PO SCH (09:00)
[2019-10-25 11:00] VITALS: BP 143/73
--- NOTE | 2019-10-25 11:25 | NUR ---
SS following for discharge planning. SS reviewed pt chart and discussed with pt RN. Pt is from [facility], . SS and pt's RN spoke with Beryl, , at [facility]. Medications to be phoned and faxed to [facility], ; fax [phone]. Pt will discharge back to [facility] when ready. SS will continue to follow for discharge planning.
--- NOTE | 2019-10-25 12:16 | PDOC3 ---
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 [facility] Brief Hospital Course Allergies Allergies Coded Allergies Type Severity Reaction Last Updated Verified No Known Drug Allergies 10/24/19 No Vital Signs Vital Signs Date Time Temp Pulse Resp B/P (MAP) Pulse Ox O2 Delivery O2 Flow Rate FiO2 10/25/19 11:00 97.5 86 20 143/73 (96) 97 Room Air 97.5 10/24/19 14:34 2.0 Lab Results Laboratory Tests Test 10/24/19 10:40 10/24/19 12:35 10/24/19 13:22 10/24/19 16:35 White Blood Count 9.1 x10^3/uL (4.0-11.0) Red Blood Count 4.33 x10^6/uL (4.30-5.70) Hemoglobin 14.2 g/dL (13.0-17.5) Hematocrit 39.8 % (39.0-53.0) Mean Corpuscular Volume 92 fL (79-100) Mean Corpuscular Hemoglobin 33 pg (25-35) Mean Corpuscular Hemoglobin Concent 36 g/dL (31-37) Red Cell Distribution Width 13.1 % (11.5-14.5) Platelet Count 201 x10^3/uL (140-400) Prothrombin Time 12.8 SEC (11.7-14.0) Prothromb Time International Ratio 1.0 (0.8-1.1) Sodium Level 142 mmol/L (136-145) Potassium Level 4.2 mmol/L (3.5-5.1) Chloride Level 104 mmol/L (98-107) Carbon Dioxide Level 26 mmol/L (21-32) Anion Gap 12 (6-14) Blood Urea Nitrogen 24 mg/dL (8-26) Creatinine 1.2 mg/dL (0.7-1.3) Estimated GFR (Cockcroft-Gault) 60.4 Glucose Level 181 mg/dL (70-99) Calcium Level 8.3 mg/dL (8.5-10.1) Activated Clotting Time 251 sec (92-181) 259 sec (92-181) Glucose (Fingerstick) 182 mg/dL (70-99) Test 10/24/19 20:57 10/25/19 08:05 Glucose (Fingerstick) 252 mg/dL (70-99) 148 mg/dL (70-99) Laboratory Tests Test 10/24/19 12:35 10/24/19 13:22 10/24/19 16:35 10/24/19 20:57 Activated Clotting Time 251 sec (92-181) 259 sec (92-181) Glucose (Fingerstick) 182 mg/dL (70-99) 252 mg/dL (70-99) Test 10/25/19 08:05 Glucose (Fingerstick) 148 mg/dL (70-99) Brief Hospital Course Mr. Saeed is a 68 yo male admitted for planned aortogram due to continued pain to his LLE with known PAD. He then had an aortogram revealed severe PAD and had a successful complex PVI of the left SFA with implantation of a 6.0 x 150 mm Supera stent. He tolerated the procedures well without any immediate complica tions and able to ambulate around in the hallway without difficulty. VSS, AOx3, LSCTA, abdomine sof and nontender and left groin arteriotomy site intact without swelling or erythema, neurovascular status intact. His BG was elevated hence he received an insulin bolus. He is to continue his home lantus and metformin as instructed and to follow up with his PCP for further treatment adjustment of his DM therapy. Discussed post op instructions with pt. and this has been relayed to his care provider at the [facility] per staffing assistant. Home with plavix and addition of low dose xarelto and no further ASA. Encourage continued increasing exercises and to follow up in office in about 3 months with LE duplex prior to appt. Discharge Information Condition at Discharge: Stable Follow Up: Weeks (12) Disposition/Orders: D/C to Home Scheduled Acetaminophen (Tylenol) 325 Mg Tablet, 325 MG PO PRN Q4HRS, #30 (Reported) Entered as Reported by: HANNA CHASE on 01/23/181715 Last Taken: Unknown Dose on Unknown Date & Time Last Action: Continued on 10/24/191852 by SOCTT MILNER Amlodipine Besylate (Amlodipine Besylate) 5 Mg Tablet, 5 MG PO DAILY for htn, (Reported) Entered as Reported by: ANDREY AGUILAR on 01/22/19 1505 Last Taken: Unknown Dose on 10/24/19 Last Action: Continued on 10/24/191852 by SCOTT MILNER Ascorbic Acid (Ascorbic Acid) 500 Mg Tablet, 500 MG PO BID, (Reported) Entered as Reported by: HANNA CHASE on 01/23/18 1720 Last Taken: Unknown Dose on 10/24/19 Last Action: Continued on 10/24/191852 by SCOTT MILNER Atorvastatin Calcium (Atorvastatin Calcium) 20 Mg Tablet, 1 TAB PO DAILY for high cholesterol, #30 Ref 5 (Reported) Entered as Reported by: ANDREY AGUILAR on 01/22/19 1531 Last Taken: Unknown Dose on 10/23/19 Last Action: Continued on 10/24/191852 by SCOTT MILNER Clopidogrel Bisulfate (Clopidogrel) 75 Mg Tablet, 1 TAB PO DAILY for PAD for 30 Days, #30 Ref 3 Prescribed by: GOLD MARTIN on 10/25/19 1218 Furosemide (Lasix) 40 Mg Tablet, 1 TAB PO DAILY for rx for 30 Days, #30 Ref 0 (Reported) Entered as Reported by: REAL DAVID on 05/23/19 0749 Last Taken: Unknown Dose on 10/23/19 Last Action: Continued on 10/24/191852 by SCOTT MILNER Insulin Glargine,Hum.rec.anlog (Lantus Solostar) 100 Unit/1 Ml Insuln.pen, 15 UNIT SQ QHS for diabetes, #15 Ref 3 (Reported) Entered as Reported by: ANDREY AGUILAR on 01/22/19 153 Last Taken: Unknown Dose on 10/23/19 Last Action: Converted on 10/24/191852 by SCOTT MILNER Levothyroxine Sodium (Levothyroxine Sodium) 25 Mcg Tablet, 25 MCG PO DAILY, #30 Ref 5 (Reported) Entered as Reported by: Laisha Garcia on 06/17/15 0857 Last Taken: Unknown Dose on 10/24/19 Last Action: Continued on 10/24/191852 by SCOTT MILNER Lisinopril (Lisinopril) 20 Mg Tablet, 1 TAB PO DAILY for rx, #30 Ref 5 ( Reported) Entered as Reported by: REAL DAVID on 05/23/19 0749 Last Taken: Unknown Dose on 10/24/19 Last Action: Continued on 10/24/191852 by SCOTT MILNER Loratadine (Loratadine) 10 Mg Tablet, 10 MG PO DAILY, (Reported) Entered as Reported by: PRASANTH BALDWIN RPH on 01/25/18 1622 Last Taken: Unknown Dose on 10/24/19 Last Action: Converted on 10/24/191852 by SCOTT MILNER Metformin Hcl (Metformin Hcl) 500 Mg Tablet, 500 MG PO BIDWMEALS, #60 Ref 3 (Reported) Entered as Reported by: Laisha Garcia on 06/17/15 0857 Last Taken: Unknown Dose on 10/24/19 Last Action: Continued on 10/24/191852 by SCOTT MILNER Metoprolol Tartrate (Metoprolol Tartrate) 25 Mg Tablet, 1 TAB PO BID for rx, #180 Ref 1 (Reported) Entered as Reported by: REAL DAVID on 05/23/19 0749 Last Taken: Unknown Dose on 10/24/19 Last Action: Continued on 10/24/191852 by SCOTT MILNER Multivits,Ca,Minerals/Iron/FA (Thera M Plus Tablet) 1 Each Tablet, 1 EACH PO DAILY for supplment, (Reported) Entered as Reported by: ANDREY AGUILAR on 01/22/19 1531 Last Taken: Unknown Dose on 10/24/19 Last Action: Continued on 10/24/191852 by SCOTT MILNER Rivaroxaban (Xarelto) 10 Mg Tablet, 2.5 MG PO BID for PAD, SOCIAL STAFF WORKER for 30 Days, #15 Ref 3 Prescribed by: GOLD MARTIN on 10/25/19 1218 Scheduled PRN Naphazoline HCl/Glycerin (Clear Eyes Cooling Comfort Drp) 15 Ml Drops, 15 ML OP PRN PRN for DRY EYE, (Reported) Entered as Reported by: REAL DAVID on 05/23/19 0749 Last Taken: Unknown Dose on Unknown Date & Time Last Action: Converted on 10/24/191852 by SCOTT MILNER Discontinued Medications Aspirin (Aspir 81) 81 Mg Tablet.dr, 81 MG PO DAILY, #30 Ref 5 (Reported) Entered as Reported by: Laisha Garcia on 06/17/15 0857 Last Taken: Unknown Dose on 10/24/19 Last Action: Last Taken Edited on 10/24/19 1023 by ZENAIDA NOEL Patient Instructions Patient Instructions GENERAL INSTRUCTIONS: 1. Your dressing should be removed prior to leaving the hospital. 2. It is OK to shower the day after your procedure. 3. If you received stents, be sure to carry your stent information card with you in your wallet/purse at all times. 4. Call the office immediately at [phone] if you notice any fever or if there is redness, worsening tenderness/pain, increased bruising, or drainage from the puncture site. 5. Should you have bleeding from the site, lie down immediately & put pressure on the site. The pressure should be hard enough to stop the bleeding. Have the nearest person call 911. DO NOT try to drive to the ER with active bleeding. 6. If you notice a change in color, coolness to touch, or loss of feeling in t he affected extremity, come to the emergency room. Please have someone drive you or call 911 if no one is available. DO NOT drive yourself. 7. If you normally take glucophage (metformin), please do not take this medicine for 48 hours following your procedure. 8. DO NOT STOP TAKING YOUR PLAVIX OR ASPIRIN UNLESS IT IS CLEARED BY A PROJECT ASSOCIATE OF YOUR APPLICATIONS CONSULTANT AT OUR OFFICE. 9. QUIT SMOKING: the [place] [employer], [place] [employer], & [place] [employer] have cessation resources available on their websites 10. Please have someone available to drive you home from the hospital as you may be limited by sedation medications given during the procedure. Femoral (Groin) access: 1. Do no lifting, pushing, pulling, bending, stooping, or recurrent stair climbing for 3 days following your procedure. 2. Once past the first 3 days, do not do any HEAVY exertion or lifting for one week following the procedure. No gym workouts, running, lifting greater than a gallon of milk, etc 3. Do not submerge in bath or pool for one week. OK to drive 3 days following your procedure, but if going long distance, do not go alone & take hourly breaks to get out of car and walk around. Call the office at [phone] for any questions or concerns. Justicifation of Admission Dx: Justifications for Admission: Justification of Admission Dx: Yes NABILA GAMINO MD 10/26/19 1336: Discharge Summary Assessment Assessment Late entry for 10/25/2019 Pt. seen and examined. Agree with above AD OPERATIONS COORDINATOR note. No issues overnight. Feeling better. Continue plavix and xarelto Supportive ccare. Discharge Information Scheduled Acetaminophen (Tylenol) 325 Mg Tablet, 325 MG PO PRN Q4HRS, #30 (Reported) Entered as Reported by: HANNA CHASE on 01/23/18 1716 Last Taken: Unknown Dose on Unknown Date & Time Last Action: Continued on 10/24/191852 by SCOTT MILNER Amlodipine Besylate (Amlodipine Besylate) 5 Mg Tablet, 5 MG PO DAILY for htn, (Reported) Entered as Reported by: ANDREY AGUILAR on 01/22/19 1505 Last Taken: Unknown Dose on 10/24/19 Last Action: Continued on 10/24/191852 by SCOTT MILNER Ascorbic Acid (Ascorbic Acid) 500 Mg Tablet, 500 MG PO BID, (Reported) Entered as Reported by: HANNA CHASE on 01/23/18 1720 Last Taken: Unknown Dose on 10/24/19 Last Action: Continued on 10/24/191852 by SCOTT MILNER Atorvastatin Calcium (Atorvastatin Calcium) 20 Mg Tablet, 1 TAB PO DAILY for high cholesterol, #30 Ref 5 (Reported) Entered as Reported by: ANDREY AGUILAR on 01/22/19 1531 Last Taken: Unknown Dose on 10/23/19 Last Action: Continued on 10/24/191852 by SCOTT MILNER Clopidogrel Bisulfate (Clopidogrel) 75 Mg Tablet, 1 TAB PO DAILY for PAD for 30 Days, #30 Ref 3 Prescribed by: GOLD MARTIN on 10/25/19 1218 Furosemide (Lasix) 40 Mg Tablet, 1 TAB PO DAILY for rx for 30 Days, #30 Ref 0 (Reported) Entered as Reported by: REAL DAVID on 05/23/19 0749 Last Taken: Unknown Dose on 10/23/19 Last Action: Continued on 10/24/191852 by SCOTT MILNER Insulin Glargine,Hum.rec.anlog (Lantus Solostar) 100 Unit/1 Ml Insuln.pen, 15 UNIT SQ QHS for diabetes, #15 Ref 3 (Reported) Entered as Reported by: ANDREY AGUILAR on 01/22/19 1531 Last Taken: Unknown Dose on 10/23/19 Last Action: Converted on 10/24/191852 by SCOTT MILNER Levothyroxine Sodium (Levothyroxine Sodium) 25 Mcg Tablet, 25 MCG PO DAILY, #30 Ref 5 (Reported) Entered as Reported by: Laisha Garcia on 06/17/15 0857 Last Taken: Unknown Dose on 10/24/19 Last Action: Continued on 10/24/191852 by SCOTT MILNER Lisinopril (Lisinopril) 20 Mg Tablet, 1 TAB PO DAILY for rx, #30 Ref 5 (Reported) Entered as Reported by: REAL DAVID on 05/23/19 0749 Last Taken: Unknown Dose on 10/24/19 Last Action: Continued on 10/24/191852 by SCOTT MILNER Loratadine (Loratadine) 10 Mg Tablet, 10 MG PO DAILY, (Reported) Entered as Reported by: PRASANTH BALDWIN [facility] on 01/25/18 1622 Last Taken: Unknown Dose on 10/24/19 Last Action: Converted on 10/24/191852 by SCOTT MILNER Metformin Hcl (Metformin Hcl) 500 Mg Tablet, 500 MG PO BIDWMEALS, #60 Ref 3 (Reported) Entered as Reported by: Laisha Garcia on 06/17/15 0857 Last Taken: Unknown Dose on 10/24/19 Last Action: Continued on 10/24/191852 by SCOTT MILNER Metoprolol Tartrate (Metoprolol Tartrate) 25 Mg Tablet, 1 TAB PO BID for rx, #180 Ref 1 (Reported) Entered as Reported by: REAL DAVID on 05/23/19 0749 Last Taken: Unknown Dose on 10/24/19 Last Action: Continued on 10/24/191852 by SCOTT MILNER Multivits,Ca,Minerals/Iron/FA (Thera M Plus Tablet) 1 Each Tablet, 1 EACH PO DAILY for supplment, (Reported) Entered as Reported by: ANDREY AGUILAR on 01/22/19 1531 Last Taken: Unknown Dose on 10/24/19 Last Action: Continued on 10/24/191852 by SCOTT MILNER Rivaroxaban (Xarelto) 10 Mg Tablet, 2.5 MG PO BID for PAD, SOCIAL 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 WORKER for 30 Days, #15 Ref 3 Prescribed by: GOLD MARTIN on 10/25/19 1218 Scheduled PRN Naphazoline HCl/Glycerin (Clear Eyes Cooling Comfort Drp) 15 Ml Drops, 15 ML OP PRN PRN for DRY EYE, (Reported) Entered as Reported by: REAL DAVID on 05/23/19 0749 Last Taken: Unknown Dose on Unknown Date & Time Last Action: Converted on 10/24/19 1853 by SCOTT MILNER Discontinued Medications Aspirin (Aspir 81) 81 Mg Tablet.dr, 81 MG PO DAILY, #30 Ref 5 (Reported) Entered as Reported by: Laisha Garcia on 06/17/15 0857 Last Taken: Unknown Dose on 10/24/19 Last Action: Last Taken Edited on 10/24/19 1023 by GOLD WATKINS APRN Oct 25, 2019 12:16 NABILA GAMINO MD Oct 26, 2019 07:27
[2019-10-25] MEDS ORDERED: CLOP75TA PO (12:18)
[2019-10-25] MEDS ORDERED: RIVA10TA PO (12:18)
[2019-10-25] MEDS ORDERED: INSULIN LISPRO 300 UNITS/3 ML VIAL. SQ SCH (13:00)
--- NOTE | 2019-10-25 14:57 | NUR ---
Discharge Note: [facility] Discharge instructions and discharge home medications reviewed with Patient and a copy given. All questions have been answered and understanding verbalized. Information given to [facility] healthcare workers as well.
[2019-10-25] MEDS ORDERED: ATORVASTATIN CALCIUM 20 MG TABLET PO SCH (21:00)
--- NOTE | 2019-10-29 15:15 | PDOC1 ---
History and Physical Visit Information Date of Admission: Oct 24, 2019 at 10:00 Source: Caregiver, Patient History of Present Illness History of Present Illness Late entry: Hai is a pleasant 68-year-old man with cognitive impairment who comes into the hospital in the setting of worsening lower extremity claudication with nonhealing wounds. He has a prior history of left SFA angioplasty. A Doppler evaluation reveals significant restenosis and therefore he presents for planned intervention for his claudication symptoms and nonhealing wounds. Risks and benefits were discussed with the patient. Cardiac Risk Factors Comments Hypertension Dyslipidemia Peripheral arterial disease Type 2 diabetes Allergies Allergies Allergies Coded Allergies Type Severity Reaction Last Updated Verified No Known Drug Allergies 10/24/19 No Social History Comments No alcohol, tobacco or illicit drug use. Family History Comments Noncontributory ROS Review of System Negative for 10 out of 14 systems reviewed unless otherwise mentioned above in HPI Physical Exam Comments The patient appeared well nourished and normally developed. Head exam is unremarkable. No scleral icterus or corneal arcus noted. Neck is wi thout jugular venous distension, thyromegaly, or carotid bruits. Carotid upstrokes are brisk bilaterally. Lungs are clear to auscultation and percussion. Cardiac exam reveals the PMI to be normally sized and situated. Rhythm is regular. First and second heart sounds normal. No murmurs, rubs or gallops. Abdominal exam reveals normal bowel sounds, no masses, no organomegaly and no aortic enlargement. Extremities are nonedematous and both femoral pulses are normal. Pedal pulses are nonpalpable Msk: No traumua Neuro: No focal deficits ECG EKG: NSR VTE Prophylaxis Ordered VTE Prophylaxis Devices: No VTE Pharmacological Prophylaxi: No Assessment/Plan Assessment/Plan 1. Severe bilateral lower extremity PAD with significant nonhealing wounds of the left side and claudication. Plan for a aortogram with runoff and possible intervention. Justicifation of Admission Dx: Justifications for Admission: Justification of Admission Dx: Yes NABILA GAMINO MD Oct 29, 2019 15:15
== END 2019-10-25 14:58 | disposition home health service (06) ==
LOC: CCL 09:45 → INTOOBSV 10:00 → 2 SOUTH 10:00
PROVIDERS: ADMIT Internal Medicine Cardiovascular Disease; ATTEND Internal Medicine Cardiovascular Disease
DX: I73.9 Peripheral vascular disease, unspecified (principal); E11.9 Type 2 diabetes mellitus without complications; I10 Essential (primary) hypertension; I70.213 Atherosclerosis of native arteries of extremities with intermittent claudication, bilateral legs; E78.00 Pure hypercholesterolemia, unspecified; Z79.4 Long term (current) use of insulin; Z79.899 Other long term (current) drug therapy; Z79.02 Long term (current) use of antithrombotics/antiplatelets
CPT/HCPCS: 36415; 37227; 75625; 75710; 80048; 82962; 85027; 85347; 85610; 96374; 96375; 96376; 97161; 97165; C1713; C1725; C1769; C1876; C1892; C1894; G0378; G0379; J1644; J1815; J2250; J3010; J3490; Q9967; 99152; 99153; C1884

== ENCOUNTER → 2020-01-10 | Outpatient (CLI) | payer MEDICARE, MEDICAID ==
[2019-10-25 08:56] VITALS: BP_DIAS 73
[2019-10-25 11:00] VITALS: BP_SYST 143
[~2020-01-10] MED LIST changes: +RIVA10TA PO
--- NOTE | 2020-01-10 13:40 | RAD ---
MR#: [id number] Date of Study: 01/10/2020 Ordering Physician: NABILA GAMINO, Referring Physician: NABILA GAMINO, Tech: Comfort Davila, JENNAMS, RVT, RTR APPROVED REPORT Patient Location: OUT-PATIENT Indications PAD Surgery/Intervention Stent : Date : 10/2019 Site : Left SFA VELOCITY AND DOPPLER WAVEFORM ANALYSIS RIGHT cm/secWaveformSeverity LEFT cm/secWaveform Severity Prof Fem Art. 185.1Prof Fem Art. 229.4 Fem Art Prox. 138.8Fem Art Prox. 132.5 Fem Art Mid. 186.3Fem Art Mid. 244.2 Fem Art Dist. 143.4Fem Art Dist. 158.5 Pop Art(AK) 46.3Pop Art(AK) 108.7 Pop Art(Fossa) 53.8Pop Art(AK) 92.5 Pop Art(BK) 73.5Pop Art(BK) 94.9 MENTAL HEALTH COORDINATOR Prox. 50.9PTA Prox. 98.1 MENTAL HEALTH COORDINATOR Dist. 27.5PTA Dist. 124.9 Per Art Prox. 151.5Per Art Prox. 119.4 ANA Prox. 73.1ATA Prox. 67.6 DPA 46DPA 51 Findings Grayscale images of the bilateral lower extremity arterial vessels demonstrates mild to moderate diff use atherosclerosis. On the right side there are mostly triphasic and biphasic waveforms without any high-grade obstructio n noted. There is likely a greater than 50% stenosis involving the peroneal artery but otherwise the re is three-vessel runoff. On the left side there is likely a greater than 50% stenosis involving the profunda femoris but no fo doris high-grade obstruction is noted in the common femoral and superficial femoral arteries. Previous ly placed stent is widely patent with three-vessel runoff below the knee. Critical Notification Critical Value: No <Conclusion> 1. Moderate bilateral disease without any focal high-grade stenosis identified in the above-knee ves sels. There is three-vessel runoff below the knee bilaterally Signed by : Nabila Gamino, Electronically Approved : 01/10/2020 13:39:44
== END ==
LOC: US 11:04
PROVIDERS: ATTEND Internal Medicine Cardiovascular Disease
DX: I70.203 Unspecified atherosclerosis of native arteries of extremities, bilateral legs (principal)
CPT/HCPCS: 93925

== ENCOUNTER → 2020-11-09 | Outpatient (CLI) | payer MEDICARE, MEDICAID ==
[~2020-11-09] MED LIST changes: +AMLO-186 PO; -AMLO5TAB10 PO; -LISI-334 PO; +LISI20TA18 PO
--- NOTE | 2020-11-09 14:20 | CARD ---
MR#: [id number] Date of Study: 11/09/2020 Ordering Physician: NABILA GAMINO, Referring Physician: NABILA GAMINO, Tech: Comfort Garcia Bao, [facility] APPROVED REPORT EXAM: Two-dimensional and M-mode echocardiogram with Doppler and color Doppler. Other Information Quality : AverageHR: 80bpm INDICATION Peripheral Artery Disiease 2D DIMENSIONS RVDd3.1 (2.9-3.5cm)Left Atrium(2D)3.6 (1.6-4.0cm) IVSd0.9 (0.7-1.1cm)Aortic Root(2D)3.2 (2.0-3.7cm) LVDd4.4 (3.9-5.9cm)LVOT Diameter2.0 (1.8-2.4cm) PWd0.9 (0.7-1.1cm)LVDs3.2 (2.5-4.0cm) FS (%) 27.7 %SV47.9 ml LVEF(%)54.0 (>50%) Aortic Valve AoV Peak Hugo.133.6cm/sAoV VTI24.9cm AO Peak GR.7.1mmHgLVOT Peak Hugo.85.8cm/s LVOT VTI 19.38cmAO Mean GR.4mmHg ASAD (VMAX)1.72bf8OLM (VTI)2.41cm2 Mitral Valve MV E Shjmlexe96.9cm/sMV DECEL [id number] MV A Hdbspkug71.9cm/sMV E Mean Gr.1mmHg MV NOT59ubJ/A Ratio0.6 MVA (PHT)3.02cm2 TDI E/Lateral E'6.4E/Medial E'7.6 Pulmonary Valve PV Peak Jxlarqcw30.6cm/sPV Peak Grad.4mmHg Tricuspid Valve TR P. Krswkbrm405vv/sRAP IVAQCHXR0diHd TR Peak Gr.31bzTdOKBO19ioKg Pulmonary Vein S1 Hwzgnibr03.0cm/sD2 Jlgafids69.5cm/s PVa pimbbcuw767mcww LEFT VENTRICLE The left ventricle is normal size. There is normal left ventricular wall thickness. The left ventricu lar systolic function is normal. The Ejection Fraction is 55%. There is normal LV segmental wall bashir on. Transmitral Doppler flow pattern is Grade I-abnormal relaxation pattern. RIGHT VENTRICLE The right ventricle is normal size. There is normal right ventricular wall thickness. The right ventr icular systolic function is normal. ATRIA The left atrium size is normal. The right atrium size is normal. The interatrial septum is intact wit h no evidence for an atrial septal defect or patent foramen ovale as noted on 2-D or Doppler imaging. AORTIC VALVE The aortic valve is normal in structure and function. Doppler and Color Flow revealed trace aortic re gurgitation. There is no significant aortic valvular stenosis. Calculated aortic valve area is 1.83 c m2 with maximum pressure gradient of 8 mmHg and mean pressure gradient of 4 mmHg. MITRAL VALVE The mitral valve is normal in structure and function. There is no evidence of mitral valve prolapse. There is no mitral valve stenosis. Doppler and Color Flow revealed no mitral valve regurgitation note d. TRICUSPID VALVE The tricuspid valve is normal in structure and function. Doppler and Color Flow revealed trace tricus pid regurgitation with an estimated PAP of 21 mmHg. There is no tricuspid valve stenosis. PULMONIC VALVE The pulmonic valve is not well visualized. Doppler and Color Flow revealed trace pulmonic valvular re gurgitation. GREAT VESSELS The aortic root is normal in size. The IVC is normal in size and collapses >50% with inspiration. PERICARDIAL EFFUSION There is no evidence of significant pericardial effusion. Critical Notification Critical Value: No <Conclusion> The left ventricular systolic function is normal. The Ejection Fraction is 55%. There is normal LV segmental wall motion. Transmitral Doppler flow pattern is Grade I-abnormal relaxation pattern. Trace tricuspid regurgitation with an estimated PAP of 21 mmHg. There is no evidence of significant pericardial effusion. Signed by : Ang Bryant, Electronically Approved : 11/09/2020 14:20:18
--- NOTE | 2020-11-12 10:07 | RAD ---
MR#: [id number] Date of Study: 11/09/2020 Ordering Physician: NABILA GAMINO, Referring Physician: NABILA GAMINO, Tech: Comfort Davila, JENNAMS, RVT, RTR APPROVED REPORT Patient Location: OUT-PATIENT Indications PAD Risk Factors History of Lower Extremity PAD: Bilaterally Diabetes Surgery/Intervention Stent : Date : 2019 Site : Fem-Pop VELOCITY AND DOPPLER WAVEFORM ANALYSIS RIGHT cm/secWaveformSeverity LEFT cm/secWaveform Severity pCFA 141.0pCFA 142.1 Prof Fem Art. 103.4Prof Fem Art. 264.4 Fem Art Prox. 149.9Fem Art Prox. 72.0 Fem Art Mid. 213.4Fem Art Mid. 36.8 Fem Art Dist. 86.8Fem Art Dist. 111.3 Pop Art(AK) Pop Art(AK) 81.0 Pop Art(Fossa) 40.5Pop Art(AK) GARBAGE COLLECTOR DRIVER Prox. 45.9PTA Prox. 37.2 GARBAGE COLLECTOR DRIVER Dist. 130.6PTA Dist. 53.3 Per Art Prox. 115.7Per Art Prox. 76.8 ANA Prox. 34.4ATA Prox. 23.4 DPA 54DPA 49 Findings Grayscale images of the bilateral lower extremity arterial vessels demonstrates moderate diffuse athe rosclerotic plaque. On the right side there is moderate disease at the level of the mid SFA and approximately 50%. Below the knee there are mostly biphasic waveforms. There is likely a more than 50% stenosis involving th e peroneal and posterior tibial vessels. On the left side there is a patent stent in the mid SFA and popliteal segment. Probable mild diffuse less than 50% stenosis involving the common femoral to the popliteal segment. Below the knee there is three-vessel runoff. Critical Notification Critical Value: No <Conclusion> 1. Moderate right lower extremity arterial disease with bilateral three-vessel runoff. Signed by : Nabila Gamino, Electronically Approved : 11/12/2020 10:07:33
== END ==
LOC: ECHO 09:49
PROVIDERS: ATTEND Internal Medicine Cardiovascular Disease
DX: I70.203 Unspecified atherosclerosis of native arteries of extremities, bilateral legs (principal)
CPT/HCPCS: 93306; 93925

== ENCOUNTER → 2021-06-17 | Outpatient (CLI) | payer MEDICARE, MEDICAID ==
--- NOTE | 2021-06-18 08:13 | RAD ---
MR#: [id number] Date of Study: 06/17/2021 Ordering Physician: NABILA GAMINO, Referring Physician: NABILA GAMINO, Tech: Last Sheridan MBA, RDMS, RVT, RDCS, RTR APPROVED REPORT Patient Location: OUT-PATIENT Laterality:Bilateral Indications CAROTID DISEASE Doppler Spectral Velocity Analysis Right Left pCCA 119/16 cm/spCCA 190/15 cm/s mCCA 109/19 cm/smCCA 167/21 cm/s dCCA 123/21 cm/sdCCA 128/16 cm/s Bulb 119/18 cm/sBulb 124/17 cm/s ECA 168/ cm/sECA 196/ cm/s pICA 106/19 cm/spICA 78/14 cm/s Ariana 85/11 cm/smICA 100/21 cm/s dICA 113/21 cm/sdICA 101/25 cm/s Vert. 64/ cm/sVert. 64/ cm/s Subcl. 168/ cm/sSubcl. 192/ cm/s ICA/CCA 0.92ICA/CCA 0.53 Findings Grayscale images of extracranial carotid arteries bilaterally showed mild atherosclerotic plaque invo lving the carotid bifurcation bilaterally. Spectral waveform and color duplex analysis showed normal velocities in the common and internal carotid arteries bilaterally suggestive of 0 to less than 50% stenosis. The ICA to CCA ratios were normal. The external carotid arteries bilaterally showed sligh tly elevated peak systolic velocities suggestive of moderate stenosis. No critical lesions were note d. Critical Notification Critical Value: No <Conclusion> Carotid arterial duplex scan did not show any significant carotid artery stenosis. Signed by : Ang Bryant, Electronically Approved : 06/18/2021 08:12:56
--- NOTE | 2021-06-18 08:18 | RAD ---
MR#: [id number] Date of Study: 06/17/2021 Ordering Physician: NABILA GAMINO, Referring Physician: NABILA GAMINO, Tech: Last Sheridan MBA, RDMS, RVT, RDCS, RTR APPROVED REPORT Patient Location: OUT-PATIENT Indications PAD Findings The right ankle-brachial index is normal at 0.93. The left ankle-brachial index is abnormal at 0.70 suggestive of moderate left lower extremity peripheral artery stenosis. Critical Notification Critical Value: No <Conclusion> Bilateral lower extremity ankle-brachial indicis showed abnormal left KATELYNN of 0.70 suggestive of moder ate PAD. Signed by : Ang Bryant, Electronically Approved : 06/18/2021 08:17:35
--- NOTE | 2021-06-18 08:25 | RAD ---
MR#: [id number] Date of Study: 06/17/2021 Ordering Physician: NABILA GAMINO, Referring Physician: NABILA GAMINO, Tech: Last Sheridan MBA, RDMS, RVT, RDCS, RTR APPROVED REPORT Patient Location: OUT-PATIENT Indications PAD VELOCITY AND DOPPLER WAVEFORM ANALYSIS RIGHT cm/secWaveformSeverity LEFT cm/secWaveform Severity dCFA 139.0TriphasicdCFA 206.0Monophasic Prof Fem Art. 60.0TriphasicProf Fem Art. 132.0Monophasic Fem Art Prox. 102.0TriphasicFem Art Prox. 100.0Monophasic Fem Art Mid. 260.0TriphasicFem Art Mid. 794.0Monophasic Fem Art Dist. 91.0TriphasicFem Art Dist. 66.0Monophasic Pop Art(Fossa) 53.0TriphasicPop Art(AK) 41.0Monophasic DEBARKER OPERATOR Prox. 165.0MonophasicPTA Prox. 98.0Monophasic DEBARKER OPERATOR Dist. 73.0MonophasicPTA Dist. 65.0Monophasic Per Art Mid. 79.0MonophasicPer Art Mid. 13.0Monophasic ANA Prox. 103.0MonophasicATA Prox. 49.0Monophasic DPA 73MonophasicDPA 84Monophasic Findings Grayscale images of peripheral arteries bilateral lower extremities showed mild to moderate diffuse a therosclerotic plaque. Spectral waveform and color duplex analysis showed triphasic waveforms in the right common, deep, superficial femoral and popliteal arteries. The velocities were increased in th e mid segment of the right superficial femoral artery suggestive of 50 to 69% stenosis. There is thr ee-vessel runoff below the knee with monophasic waveforms probably secondary to moderate diffuse dise ase. In the left lower extremity, there were monophasic waveforms in all the arteries. The stent in the left superficial femoral artery showed significantly elevated velocity of 794 cm/s in the proxim al portion suggesting significant 70 to 99% stenosis. There is three-vessel runoff below the knee wi th monophasic waveforms probably from inflow disease. Critical Notification Critical Value: Yes <Conclusion> Bilateral lower extremity arterial duplex scan showed moderate stenosis involving the right superfici al femoral artery and a very significant 70 to 99% in-stent restenosis involving the left superficial femoral artery. Signed by : Ang Bryant, Electronically Approved : 06/18/2021 08:24:34
== END ==
LOC: US 13:28
PROVIDERS: ATTEND Internal Medicine Cardiovascular Disease
DX: I65.23 Occlusion and stenosis of bilateral carotid arteries (principal); R94.39 Abnormal result of other cardiovascular function study; I70.203 Unspecified atherosclerosis of native arteries of extremities, bilateral legs
CPT/HCPCS: 93880; 93922; 93925

== ENCOUNTER 2021-08-04 09:12 | Emergency (ER) | payer MEDICARE, MEDICAID ==
[~2021-08-04] VITALS: Ht 167.6 cm; Wt 84.9 kg
--- NOTE | 2021-08-04 09:35 | PHYS DOC ---
Past Medical History Past Medical History: Diabetes-Type II, Hypertension, Hypothyroid Past Surgical History: Other Additional Past Surgical Histo: 2 toes on L foot surgically amputated Smoking Status: Never Smoker Alcohol Use: None Drug Use: None General Adult HPI: HPI: Patient is a 70 year old male who presents with here from [facility] with a right lateral foot wound with yellow drainage per the facility. Patient does go to wound care here at this facility. He is not currently on any type of antibiotics. The facility stated that the patient should come to the ER to have it checked since he is diabetic. Patient denies any type of pain. He states he does have feeling in his feet. He denies any kind of injury to this foot. Patient does have times where he is not steady on his feet and family member states that seems to be a little bit worse today. She states he does have a cane and a walker that he has to use at times. Patient has a history of CAD, stents in his legs for PAD, diabetes, hypertension, high cholesterol, hypothyroidism, toe amputation on his left foot. He denies fever, chest pain, shortness of air, nausea, vomiting, weakness, headache, dizziness, new numbness or tingling, focal weakness, edema, skin color change, fall, injury. Review of Systems: Review of Systems: Constitutional: Denies fever or chills. [] Eyes: Denies change in visual acuity. [] HENT: Denies nasal congestion or sore throat. [] Respiratory: Denies cough or shortness of breath. [] Cardiovascular: Denies chest pain or edema. [] GI: Denies abdominal pain, nausea, vomiting, bloody stools or diarrhea. [] : Denies dysuria. [] Musculoskeletal: Denies back pain or joint pain. [] Integument: Denies rash. + Right lateral foot wound [] Neurologic: Denies headache, focal weakness or sensory changes. [] Endocrine: Denies polyuria or polydipsia. [] Lymphatic: Denies swollen glands. [] Psychiatric: Denies depression or anxiety. [] Heart Score: C/O Chest Pain: No Allergies: Allergies: Allergies Coded Allergies Type Severity Reaction Last Updated Verified No Known Drug Allergies 10/24/19 No Physical Exam: PE: Constitutional: Well developed, well nourished, no acute distress, non-toxic appearance. [] HENT: Normocephalic, atraumatic, bilateral external ears normal, oropharynx moist, no oral exudates, nose normal. [] Eyes: PERRLA, EOMI, conjunctiva normal, no discharge. [] Neck: Normal range of motion, no tenderness, supple, no stridor. [] Cardiovascular:Heart rate regular rhythm, no murmur [] Lungs & Thorax: Bilateral breath sounds clear to auscultation [] Abdomen: Bowel sounds normal, soft, no tenderness, no masses, no pulsatile masses. [] Skin: Warm, dry, no erythema, no rash. Right lateral foot wound that appears to look like a blister and is yellow in color with scant drainage on bandage. No cellulitis or swelling. [] Back: No tenderness, no CVA tenderness. [] Extremities: No tenderness, no cyanosis, no clubbing, ROM intact, no edema. [] Neurologic: Alert and oriented X 3, normal motor function, normal sensory function, no focal deficits noted. [] Psychologic: Affect normal, judgement normal, mood normal. [] EKG: EKG: [] Radiology/Procedures: Radiology/Procedures: [] Impression: [facility] [address] [place], [place] [id number] IMAGING REPORT Signed PATIENT: FABIOLA ANN DACCOUNT: [id number] : 1950 LOCATION: ER AGE: 70 SEX: M EXAM STATUS: REG ER ORD. PHYSICIAN: MARCOS CARREON APRN REASON: lateral posterior foot wound PROCEDURE: FOOT RIGHT 3V EXAM: 3 views right foot DATE: 08/04/2021 9:40 AM INDICATION: Reason: lateral posterior foot wound / Spl. Instructions: / History: . COMPARISON: No Prior FINDINGS: No acute fracture or dislocation. Mild soft tissue swelling and irregularity at the plantar aspect of the calcaneus and hindfoot. No subjacent erosive/destructive change or periostitis to suggest osteomyelitis. Mild midfoot degenerative changes. Forefoot soft tissue swelling is also seen. Small posterior calcaneal enthesophyte. IMPRESSION: 1. Soft tissue swelling and irregularity at the plantar aspect of the calcaneus and hindfoot may represent soft tissue ulceration. No radiographic evidence for acute osteomyelitis. 2. No acute fracture or dislocation. Electronically signed by: Nitin Vega MD (08/04/2021 11:33 AM) [id number] DICTATED and SIGNED BY: NITIN VEGA MD DATE: 08/04/21 1129 Course & Med Decision Making: Course & Med Decision Making Pertinent Labs and Imaging studies reviewed. (See chart for details) See HPI. Alert and oriented x4. Ambulatory without a steady gait. He does appear to stumble at times. Currently does not have a walker or cane with him. His care provider states that he does need to use a walker or cane but the patient refuses to use it. Caregiver states about 6 months ago the patient fell on top of his and broke her leg. Pedal pulses are strong and present. Bilateral feet are dusky in color but good pulses. Cap refill less than 3 seconds. No swelling in the extremity or cellulitis. Afebrile. Speaks in full clear sentences. Right lateral foot wound appears to look like a quarter sized blister with scant yellow drainage on bandage. Patient is not septic appearing. His lactic acid is normal. No white blood cell count. He is afebrile. X-ray does not show osteomyelitis. There is no r edness, heat or streaking. There is no swelling. I had Phi WEST from wound care come over and see the patient take a look at the foot wound. He states that it actually looks great and does not seem to be any infection at this time. He states that there is not seem to be any fluid collection. There was no fluid from the area to drain or to get a culture. There is no need for antibiotics at this time. Phi WEST was able to get the patient a appointment on August 09 at 1 PM. Phi WEST is doing wound care for the patient on the foot. Kidney function is elevated but when looking back he has chronic kidney insufficiency. Urinalysis did not show any type of infection or dehydration. [] Dragon Disclaimer: Dragon Disclaimer: This electronic medical record was generated, in whole or in part, using a voice recognition dictation system. Departure Departure Impression: Primary Impression: Wound of foot Disposition: HOME / SELF CARE / HOMELESS Condition: STABLE Referrals: SASKIA HERNANDEZ MD (PCP) MAURIZIO ARZOLA MD Patient Instructions: Diabetes and Foot Care Additional Instructions: Follow-up with the wound care center here at [place] on August 09 at 1 PM as he has a appointment. Keep the area clean and covered. Try to keep pressure off of the area. Please use a walker to ambulate. Scripts Doxycycline Monohydrate (DOXYCYCLINE MONOHYDRATE) 100 Mg Capsule 1 CAP PO BID, #20 CAP Prov: MARCOS CARREON APRN 08/04/21 MARCOS CARREON APRN August 04, 2021 09:34
[2021-08-04 09:53] LABS: BASO # 0.1 x10^3/uL (0.0-0.2); BASO % 1 % (0-3); EOS # 0.2 x10^3/uL (0.0-0.7); EOS % 3 % (0-3); HEMATOCRIT 42.7 % (39.0-53.0); LYMPH # 2.4 x10^3/uL (1.0-4.8); LYMPH % 29 % (24-48); MEAN CORPUSCULAR HEMOGLOBIN 32 pg (25-35); MEAN CORPUSCULAR HGB CONC 35 g/dL (31-37); MEAN CORPUSCULAR VOLUME 91 fL (79-100); MONO # 0.7 x10^3/uL (0.0-1.1); MONO % 9 % (0-9); NEUT # 4.8 x10^3/uL (1.8-7.7); NEUT % 59 % (31-73); PLATELET COUNT 188 x10^3/uL (140-400); RED BLOOD COUNT 4.68 x10^6/uL (4.30-5.70); RED CELL DISTRIBUTION WIDTH 13.1 % (11.5-14.5); WHITE BLOOD COUNT 8.2 x10^3/uL (4.0-11.0)
[2021-08-04 10:08] LABS: CREATININE 1.7 mg/dL (0.7-1.3); GFR 40.2
[2021-08-04 10:13] LABS: ALBUMIN 3.6 g/dL (3.4-5.0); ALBUMIN/GLOBULIN RATIO 0.8 (1.0-1.7); C-REACTIVE PROTEIN 8.1 mg/L (0-3.3); TOTAL BILIRUBIN 1.2 mg/dL (0.2-1.0); TOTAL PROTEIN 7.9 g/dL (6.4-8.2)
--- NOTE | 2021-08-04 11:36 | RAD ---
EXAM: 3 views right foot DATE: 08/04/2021 9:40 AM INDICATION: Reason: lateral posterior foot wound / Spl. Instructions: / History: . COMPARISON: No Prior FINDINGS: No acute fracture or dislocation. Mild soft tissue swelling and irregularity at the plantar aspect of the calcaneus and hindfoot. No subjacent erosive/destructive change or periostitis to suggest osteom yelitis. Mild midfoot degenerative changes. Forefoot soft tissue swelling is also seen. Small posteri or calcaneal enthesophyte. IMPRESSION: 1. Soft tissue swelling and irregularity at the plantar aspect of the calcaneus and hindfoot may rep resent soft tissue ulceration. No radiographic evidence for acute osteomyelitis. 2. No acute fracture or dislocation. Electronically signed by: Nitin Dillon MD (08/04/2021 11:33 AM) [id number]
[2021-08-04 11:37] LABS: BACTERIA,URINE 0 /HPF (0-FEW); RBC,URINE 0 /HPF (0-2); WBC,URINE 0 /HPF (0-4)
[2021-08-04 12:22] VITALS: BP 161/75
[2021-08-04] MEDS ORDERED: DOXY-181 PO (12:38)
== END 2021-08-04 12:54 | disposition home or self-care (01) ==
LOC: ER 09:12
DX: S91.301A Unspecified open wound, right foot, initial encounter (principal); E11.9 Type 2 diabetes mellitus without complications; I10 Essential (primary) hypertension; E03.9 Hypothyroidism, unspecified; X58.XXXA Exposure to other specified factors, initial encounter; Y93.89 Activity, other specified; Y92.89 Other specified places as the place of occurrence of the external cause; Y99.8 Other external cause status
CPT/HCPCS: 36415; 73630; 80053; 81001; 83605; 85025; 85651; 86140; 87040; 99285-25